=== PATIENT | female | born 1940 | race Caucasian/White ===

== ENCOUNTER 2020-01-31 19:38 | Inpatient (IN) | payer MEDICARE, OTHER, SELFPAY ==
[2020-01-31] VITALS (7 sets, daily range): BP systolic 132–217; BP diastolic 64–113; PULSE 63–118; RESP 12–20; TEMP 36.9; O2SAT 97–99
--- NOTE | ~2020-01-31 | XR_ITS ---
EXAMINATION: XR chest 2V DATE: 01/31/2020 20:57 INDICATION: Chest pain. Bradycardia. TECHNIQUE: PA and lateral views of the chest were obtained. COMPARISON: Chest radiograph dated 07/10/2017 and 04/21/2013 FINDINGS: Mild streaky bibasilar opacities consistent with atelectasis/scarring. Unchanged oblique thickening o f one of the fissures on the lateral projection likely additional scarring. No new airspace opacities , pulmonary edema, pleural effusion or pneumothorax. The cardiomediastinal silhouette is normal. Athe rosclerotic aorta. Moderate thoracic spondylosis and mild kyphosis with chronic mild anterior wedging of a few mid thoracic vertebral bodies. IMPRESSION: 1. Chronic scarring along one of the fissures with mild bibasilar atelectasis. Reviewed, dictated and finalized at location A.
--- NOTE | 2020-01-31 19:42 | ECG_ITS ---
Measurements Intervals [place] Rate: 122 P: 80 MA: 148 QRS: -29 QRSD: 126 T: 128 QT: 298 QTc: 425 Interpretive Statements SINUS TACHYCARDIA INTRAVENTRICULAR CONDUCTION DELAY BORDERLINE R WAVE PROGRESSION, ANTERIOR LEADS LEFT VENTRICULAR HYPERTROPHY AND ST-T CHANGE ST-T WAVE ABNORMALITY IN LATERAL LEADS- CONSIDER ISCHEMIA ABNORMAL ECG Electronically Signed On 02-01-2020 9:21:52 CDT by Mario Jack D.O.
--- NOTE | 2020-01-31 20:00 | PC.NURSE ---
Pt ambulatory to restroom with no difficulty.
--- NOTE | 2020-01-31 20:16 | PC.NURSE ---
EDP at bedside
--- NOTE | 2020-01-31 20:32 | ED.ARRPALP ---
HPI - Arrhythmia/Palpitations General Chief Complaint: Arrhythmia/Palpitations Stated Complaint: low heart rate Time Seen by Provider: 01/31/20 19:51 History of Present Illness HPI narrative: Patient is a 79-year-old female who presents ER with several complaints. Main complaint is that she has been feeling frequent PVCs and her heart dropping intermittently over the last few days. She has been taking her pulse at home and has noticed is been beating around 40 bpm. Prior to coming to the ER today she did develop some central chest pressure without radiation. It was associated with more frequent PVCs than typical for her. 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 She is on no rate control medications but reports that 30 years ago she took propanolol for her PVCs. Denies any recent medication changes or excessive caffeine use. Patient reports no issues with hypertension and that her blood pressure typically runs in the 120s and 130s systolic. Related Data Home Medications Medication Instructions Recorded Confirmed alprazolam 0.5 mg PO DAILY PRN 01/31/20 02/01/20 fluticasone propion-salmeterol 1 inh INHALATION DAILY 02/01/20 02/01/20 [Advair Diskus] Allergies Allergy/AdvReac Type Severity Reaction Status Date / Time albuterol [ProAir HFA] Allergy Unknown mouth sores Verified 01/31/20 19:53 dog dander Allergy Unknown Asthma Verified 01/31/20 19:53 levofloxacin Allergy Unknown tendonitis Verified 01/31/20 19:53 Review of Systems Review of Systems: All systems reviewed & are unremarkable except as noted in HPI and below Constitutional: Constitutional: Denies chills, Reports fatigue, Denies fever(s) and Reports weakness ENT: Denies nasal congestion and Denies sore throat Cardiovascular: Cardiovascular: Reports chest pain, Denies radiating jaw, neck or arm pain and Reports slow heart rate Respiratory: Respiratory: Denies cough, Denies dyspnea and Denies wheezing Gastrointestinal: Gastrointestinal: Denies abdominal pain, Denies nausea and Denies vomiting [facility] Past Medical History Medical History (Updated 02/01/20 @ 06:58 by Vipul Baptiste MD) Chronic lung disease Frequent PVCs Social History Social History (Reviewed 08/20/19 @ 14:34 by Lilian Pena [facility]) Years smoked: 5 Smoking status: Former smoker Tobacco type: cigarettes Second hand tobacco smoke exposure: Yes Alcohol intake: current Drinks per week: 0 Substance use: never Spiritual care concerns: Yes (Christianity) Exam Narrative: Exam Narrative: GENERAL: Well-appearing, well-nourished, and in no acute distress. HEAD: Normocephalic, atraumatic. ENT: Mucous membranes moist. CHEST: Clear to auscultation. No respiratory distress. HEART: Tachycardic and regular, frequent dropped beats. Normal peripheral pulses. ABDOMEN: Soft, nontender, nondistended. EXTREMITIES: Normal range of motion. No edema. SKIN: Warm, dry, no rash. NEURO: Alert and oriented x3. Course Course Emergency Course: Troponins trending upward. Cardiology consulted. Will start on low-dose beta-lauren. No chest pain right now so no anticoagulation. Patient will be admitted to the hospitalist service. Patient has had labile blood pressures where she has been normotensive but then is also had blood pressures up into the 200s systolic. When these blood pressures are elevated she is not having chest pain. Patient is in no distress at this time. Vital Signs Vital signs: Vital Signs Temperature 98.4 F 01/31/20 19:43 Pulse Rate 118 H 01/31/20 19:43 Respiratory Rate 20 01/31/20 19:43 Blood Pressure 217/113 H 01/31/20 19:43 Temperature 97 F L 02/01/20 03:24 Pulse Rate 83 02/01/20 05:51 Respiratory Rate 18 02/01/20 04:00 Blood Pressure 154/89 H 02/01/20 03:24 Pulse Oximetry 96 02/01/20 03:24 MDM - Arrhythmia/Palpitations Lab Data Result diagrams: 01/31/20 20:37 01/31/20 20:37 Labs: Lab Results 01/31/20
[2020-01-31] MEDS: SODIUM CHLORIDE 0.9% IV 500 ML 999 ML IV CONT (20:40)
[2020-01-31 20:44] LABS: Basophils Percent Auto 0.3 % (0.2-1.2); Eosinophils Absolute Auto 0.1 K/mm3 (0-0.3); Eosinophils Percent Auto 1.4 % (0-4.4); Hematocrit 42.7 % (37.0-47.0); Hemoglobin 14.1 g/dL (12.0-15.0); Immature Granulocyte Absolute 0.02 K/mm3 (0.00-0.031); Immature Granulocyte Percent A 0.2 % (0-0.5); Lymphocytes Absolute Auto 4.23 K/mm3 (0.9-3.2); Lymphocytes Percent Auto 44.8 % (18.3-44.2); Mean Corpuscular Hemoglobin 29.7 pg (26-34); Mean Corpuscular Volume 89.9 fl (80-100); Mean Platelet Volume 11.4 fl (7.4-10.4); Monocytes Absolute Auto 0.7 K/mm3 (0.1-0.6); Neutrophils Absolute Auto 4.4 K/mm3 (1.3-6.7); Neutrophils Percent Auto 46.3 % (45.5-73.1); Platelet Count Result 243 k/mm3 (150-375); Red Blood Count 4.75 M/mm3 (4.2-5.4); Red Cell Distribution Width 13.2 % (11.5-14.5); White Blood Count 9.4 K/mm3 (4.5-10.0)
[2020-01-31 20:54] LABS: INR 0.9; Partial Thromboplastin Time 23.8 SECONDS (22.3-36.8); Prothrombin Time 11.9 Seconds (11.1-14.7)
[2020-01-31 20:55] LABS: Blood Urea Nitrogen 18 mg/dL (7-17); Calcium 9.3 mg/dL (8.4-10.2); Carbon Dioxide 26 mmol/L (22-30); Chloride 102 mmol/L (98-107); Estimated CRCL calculation 49 ml/min; Estimated Glomerular Filt Rate > 60; Glucose 122 mg/dL (65-105); Sodium 136 mmol/L (137-145)
[2020-01-31 21:07] LABS: Troponin I < 0.012 ng/mL (0.000-0.034)
--- NOTE | 2020-01-31 21:56 | PC.NURSE ---
Ambulatory to RR
--- NOTE | 2020-01-31 23:10 | PC.NURSE ---
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 EDP is aware of elevated BP. Made aware of pt concerns
[2020-02-01] VITALS (21 sets, daily range): BP systolic 129–164; BP diastolic 56–116; PULSE 68–105; RESP 16–29; TEMP 36.1–37; O2SAT 95–98; BMI 26.0
--- NOTE | 2020-02-01 00:32 | ECG_ITS ---
Measurements Intervals [place] Rate: 77 P: 75 [place]: 161 QRS: -38 QRSD: 130 T: 118 QT: 440 QTc: 500 Interpretive Statements SINUS RHYTHM VENTRICULAR PREMATURE COMPLEXES LEFT AXIS DEVIATION INTRAVENTRICULAR CONDUCTION DELAY LEFT VENTRICULAR HYPERTROPHY AND ST-T CHANGE BORDERLINE R WAVE PROGRESSION, ANTERIOR LEADS ST-T WAVE ABNORMALITY IN LATERAL LEADS- CONSIDER ISCHEMIA ABNORMAL ECG Electronically Signed On 02-01-2020 9:25:01 CDT by Mario Jack D.O.
[2020-02-01 00:57] LABS: Troponin I 0.075 ng/mL (0.000-0.034)
[2020-02-01] MEDS: METOPROLOL TARTRATE 12.5 MG TABLET PO ×2 (01:28→08:16)
--- NOTE | 2020-02-01 03:18 | ADMGEN ---
This patient, Nora Tejeda, was admitted to IMU Room 200-01. Patient/family oriented to hospital policies and general routines including ID bracelet, bed and alarms, visiting hours, pain management, procedures, bathroom and other care routines, personal items, smoking policy, room service/diet, and visiting hours. Valuables list has been completed. Information on how to activate the Rapid Response Team has been discussed. Patient/Family are encouraged to report perceived risks to care and to ask questions if they do not understand what they are told or what they should do.
[2020-02-01 03:48] LABS: Troponin I 0.089 ng/mL (0.000-0.034)
--- NOTE | 2020-02-01 09:47 | ECG_ITS ---
Measurements Intervals [place] Rate: 82 P: 73 CO: 157 QRS: -45 QRSD: 133 T: 125 QT: 400 QTc: 469 Interpretive Statements SINUS RHYTHM INTRAVENTRICULAR CONDUCTION DELAY LEFT VENTRICULAR HYPERTROPHY AND ST-T CHANGE BORDERLINE R WAVE PROGRESSION, ANTERIOR LEADS ST-T WAVE ABNORMALITY IN LATERAL LEADS- CONSIDER ISCHEMIA ABNORMAL ECG Electronically Signed On 02-01-2020 13:43:46 CDT by Mario Jack D.O.
--- NOTE | 2020-02-01 10:36 | PM.CNCAR ---
Assessment and Plan Assessment and plan (1) Elevated troponin: Code(s): R79.89 - Other specified abnormal findings of blood chemistry Status: Acute Assessment and Plan: Secondary to an acute coronary syndrome. Troponins are still slightly rising. Certainly may be related to markedly elevated blood pressure upon arrival but underlying coronary disease is not excluded. She has symptoms of exertional chest pain improved with rest. Plan therefore will be to repeat a troponin now. EKG now. Start aspirin 325 mg p.o. daily. Will give her 1 dose of enoxaparin 1 milligram/kilogram subcu x1. A 2D echocardiogram with Doppler will be ordered and reviewed. A magnesium level will also be checked along with a fasting lipid panel. Metoprolol will be increased to 25 mg p.o. b.i.d. patient is very hesitant and skeptical of the above diagnosis and issues. Plan is to keep her NPO after midnight to perform an ischemic evaluation either via a pharmaceutical stress test or preferably a coronary angiogram. (2) Chest tightness: Code(s): R07.89 - Other chest pain Status: Acute Assessment and Plan: Concerning for angina (3) Ventricular premature beats: Code(s): I49.3 - Ventricular premature depolarization Status: Acute Assessment and Plan: Frequent and likely the cause of her low heart rate as she probably had pseudo bradycardia (4) Chronic obstructive pulmonary disease, unspecified: Code(s): J44.9 - Chronic obstructive pulmonary disease, unspecified Status: Acute Assessment and Plan: On Advair (5) Elevated blood pressure reading: Code(s): R03.0 - Elevated blood-pressure reading, without diagnosis of hypertension Status: Acute Assessment and Plan: Probably has untreated hypertension History of Present Illness History of Present Illness Consult date/time: 02/01/20 10:36 Requesting physician: Vipul Baptiste MD Consult reason: Other (Elevated troponins, PVCs, chest tightness) Reason For Visit: low heart rate Narrative: Date of service 02/01/2020 History: Patient is a thorough historian. She is a 79-year-old female who came to the hospital yesterday because of lower heart rates and not feeling very well. She does see Dr. Plaza in our office. 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 She has a history of palpitations dating back to 1974. At that time she was treated with propanolol. She was later taken off of the medication but had restarted 1981 for a couple of years. About 5 years ago there is a in her family and she started having more palpitations again. She did see Dr. Plaza in our office. She has been diagnosed with PVCs. Her PVCs can be exacerbated by alcohol and caffeine. She does have some anxiety as well as underlying lung disease also. She came to the hospital yesterday because she has had 2 days of not feeling very well and low heart rates. She will check her pulse oximeter and her heart rate would be in the 40s. Two days ago whenever this 1st started happening she drank some water and then went about her day. Later that evening though she felt abnormal again and her pulse was in the 40s. Episodes the last 5 minutes or so at a time. Yesterday she had more episodes. She also had some associated chest tightness as well as chest tightness on the way into the emergency department. Upon further and detailed questioning, she describes a longstanding history of chest tightness with exertion that has been present for the past 5 years. She states that this is certainly no better and probably worse over time. It is associated with shortness of breath. It is improved with rest. She also has a feeling of indigestion. Sometimes the symptoms will last for about an hour or so. Symptoms do not radiate. Her initial troponin was negative but follow-up troponins have been elevated and continues to rise slowly. She currently is comfortable and without complaint except for the fac
[2020-02-01 11:00] LABS: Troponin I 0.087 ng/mL (0.000-0.034)
[2020-02-01 11:16] LABS: Cholesterol 204 mg/dL (0-200); HDL Direct 82 mg/dL; Triglycerides 49 mg/dL (<150)
[2020-02-01 11:28] LABS: LDL Cholesterol Direct 91 mg/dL
[2020-02-01] MEDS: ENOXAPARIN 80 MG/0.8 ML SYRINGE 70 MG SUB-Q (12:24)
[2020-02-01] MEDS: ASPIRIN 325 MG ENTERIC TABLET PO (12:24)
--- NOTE | 2020-02-01 15:15 | PM.IMPN ---
Subjective Date/time seen: 02/01/20 15:15 Patient is 79-year-old female with history of COPD, anxiety and questionable PVC presented emergency department with a complaint of my heart is skipping the bits, patient presenting complaint with also shortness of breath with exertion but no chest pain, her initially tropes was negative however now the 2nd was 0.75, .89 and .87, patient seen by laboratory mechanic helper suspect non STEMI and start the patient on anticoagulation, will monitor patient overnight patient will have stress test tomorrow or possibly cardiac catheterization, currently patient denies any chest pain or shortness of breath Objective Data Vital Signs Vital Signs: Vital Signs - 24 hr 01/31/20 19:43 01/31/20 20:11 01/31/20 20:31 Temperature 98.4 F Pulse Rate 118 H 99 Respiratory Rate 20 19 Blood Pressure 217/113 H 177/84 H 171/84 H Pulse Oximetry 99 01/31/20 21:19 01/31/20 22:14 01/31/20 22:37 Temperature Pulse Rate 83 77 71 Respiratory Rate 12 Blood Pressure 162/86 H 140/88 132/64 Pulse Oximetry 99 97 97 01/31/20 23:47 02/01/20 00:47 02/01/20 01:19 Temperature Pulse Rate 63 77 Respiratory Rate 20 Blood Pressure 164/116 H 129/87 Pulse Oximetry 98 96 02/01/20 01:28 02/01/20 01:34 02/01/20 02:35 Temperature Pulse Rate 88 80 68 Respiratory Rate 29 H 18 Blood Pressure 154/84 H 143/79 H Pulse Oximetry 98 96 02/01/20 03:06 02/01/20 03:24 02/01/20 04:00 Temperature 97 F L Pulse Rate 88 68 Respiratory Rate 16 18 Blood Pressure 144/90 H 154/89 H Pulse Oximetry 96 02/01/20 05:51 02/01/20 07:43 02/01/20 08:00 Temperature 96.9 F L Pulse Rate 83 79 84 Respiratory Rate 16 Blood Pressure 146/66 H Pulse Oximetry 97 02/01/20 08:16 02/01/20 10:07 02/01/20 12:00 Temperature 96.9 F L Pulse Rate 84 88 79 Respiratory Rate 16 Blood Pressure 143/56 H Pulse Oximetry 95 02/01/20 14:52 Temperature Pulse Rate 89 Respiratory Rate Blood Pressure Pulse Oximetry Intake/Output Intake/Output: Intake & Output 01/29/20 01/30/20 01/31/20 02/01/20 23:59 23:59 23:59 23:59 Intake Total 500 1470 Output Total 900 Balance 500 570 Meds/Results Medications: Active Medications Generic Name Dose Route Start Last Admin Trade Name Freq PRN Reason Stop Dose Admin Acetaminophen 650 mg 02/01/20 02:17 Tylenol Tablet PO Q4H PRN Mild Pain (1-3) or Fever Hydrocodone Bitart/Acetaminophen 1 tab 02/01/20 02:17 [place] 5-325 Mg PO Q4H PRN Pain Rated 4-6 Alprazolam 0.5 mg 02/01/20 07:50 Xanax PO DAILY PRN Anxiety Aspirin 325 mg 02/01/20 10:50 02/01/20 12:24 Aspirin Ec PO 325 mg QAM ANA Administration Metoprolol Tartrate 25 mg 02/01/20 10:50 Lopressor PO Q12HR ANA Morphine Sulfate 4 mg 02/01/20 02:17 Morphine Sulfate Inj IV PUSH Q2H PRN Pain Rated 7-10 Non-Formulary Medication 1 inhalation 02/01/20 09:00 Fluticasone Propion-Salmeterol [Advair Diskus] INHALATION 03/02/20 09:01 DAILY ANA Ondansetron HCl 4 mg 02/01/20 02:17 Zofran Inj IV PUSH Q4H PRN Nausea Radiology Results: ITS Impressions Chest X-Ray 01/31/20 21:14 IMPRESSION: 1. Chronic scarring along one of the fissures with mild bibasilar atelectasis. Labs Labs: Laboratory Results - last 24 hr 01/31/20 01/31/20 01/31/20 20:37 20:37 20:37 WBC 9.4 RBC 4.75 Hgb 14.1 Hct 42.7 MCV 89.9 MCH 29.7 MCHC 33.0 RDW 13.2 Plt Count 243 MPV 11.4 H Immature Gran % (Auto) 0.2 Neut % (Auto) 46.3 Lymph % (Auto) 44.8 H [place] % (Auto) 7.0 Eos % (Auto) 1.4 Baso % (Auto) 0.3 Lymph # (Auto) 4.23 H [place] # (Auto) 0.7 H Eos # (Auto) 0.1 Baso # (Auto) 0.0 Abs Immat Gran (auto) 0.02 Absolute Neuts (auto) 4.4 Absolute Nucleated RBC 0.0 Nucleated RBC % 0.0 PT 11.9 INR 0.9 APTT 23.8 Sodium 136
--- NOTE | 2020-02-01 15:20 | PM.IMHP ---
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 by tempering kiln tender suspect non STEMI and start the patient on anticoagulation, will monitor patient overnight patient will have stress test tomorrow or possibly cardiac catheterization, currently patient denies any chest pain or shortness of breath Review of Systems Review of Systems: All systems reviewed & are unremarkable except as noted in HPI and below PMFSH Past Medical History Medical History (Updated 02/01/20 @ 10:45 by Winston Tapia MD) Chest tightness Chronic lung disease Frequent PVCs Family History Family History Sibling Family history of tuberculosis Mother Diabetes mellitus Social History Social History Years smoked: 5 Smoking status: Former smoker Tobacco type: cigarettes Second hand tobacco smoke exposure: Yes Alcohol intake: current Drinks per week: 0 Substance use: never Spiritual care concerns: Yes (Anglican) Meds Home Medications and Allergies Home Medications Medication Instructions Recorded Confirmed Type alprazolam 0.5 mg PO DAILY PRN 01/31/20 02/01/20 History fluticasone propion-salmeterol 1 inh INHALATION DAILY 02/01/20 02/01/20 History [Advair Diskus] Allergies Allergy/AdvReac Type Severity Reaction Status Date / Time albuterol [ProAir HFA] Allergy Unknown mouth sores Verified 01/31/20 19:53 dog dander Allergy Unknown Asthma Verified 01/31/20 19:53 levofloxacin Allergy Unknown tendonitis Verified 01/31/20 19:53 Vital Signs Vital Signs - 24 hr 01/31/20 19:43 01/31/20 20:11 01/31/20 20:31 Temperature 98.4 F Pulse Rate 118 H 99 Respiratory Rate 20 19 Blood Pressure 217/113 H 177/84 H 171/84 H Pulse Oximetry 99 01/31/20 21:19 01/31/20 22:14 01/31/20 22:37 Temperature Pulse Rate 83 77 71 Respiratory Rate 12 Blood Pressure 162/86 H 140/88 132/64 Pulse Oximetry 99 97 97 01/31/20 23:47 02/01/20 00:47 02/01/20 01:19 Temperature Pulse Rate 63 77 Respiratory Rate 20 Blood Pressure 164/116 H 129/87 Pulse Oximetry 98 96 02/01/20 01:28 02/01/20 01:34 02/01/20 02:35 Temperature Pulse Rate 88 80 68 Respiratory Rate 29 H 18 Blood Pressure 154/84 H 143/79 H Pulse Oximetry 98 96 02/01/20 03:06 02/01/20 03:24 02/01/20 04:00 Temperature 97 F L Pulse Rate 88 68 Respiratory Rate 16 18 Blood Pressure 144/90 H 154/89 H Pulse Oximetry 96 02/01/20 05:51 02/01/20 07:43 02/01/20 08:00 Temperature 96.9 F L Pulse Rate 83 79 84 Respiratory Rate 16 Blood Pressure 146/66 H Pulse Oximetry 97 02/01/20 08:16 02/01/20 10:07 02/01/20 12:00 Temperature 96.9 F L Pulse Rate 84 88 79 Respiratory Rate 16 Blood Pressure 143/56 H Pulse Oximetry 95 02/01/20 14:52 Temperature Pulse Rate 89 Respiratory Rate Blood Pressure Pulse Oximetry Exam Const: General: comfortable and no acute distress HENMT: General nose exam: Normal nares present Eyes: Sclera: sclerae normal Neck: Neck: supple Resp: Effort & Inspection: normal respiratory effort Auscultation: clear to auscultation bilaterally Cardio: Rate: regular rate Rhythm: regular rhythm Other: Occasional PVC GI: GI Palp: Yes Soft to palpation Skin: General skin exam: normal color Neuro: Speech: normal speech Sensory Exam: normal sensation Extrem: General: normal to inspection Psych: Affect: Anxious affect present H&P: Results La
--- NOTE | 2020-02-01 18:35 | PHAR ---
The patient's home med of Fluticasone Propion-Salmeterol [Advair Diskus] 250-50 MCG has been verified.
[2020-02-01] MEDS: METOPROLOL TARTRATE 25 MG TABLET PO (20:18)
[2020-02-02] VITALS (17 sets, daily range): BP systolic 120–145; BP diastolic 54–78; PULSE 43–88; RESP 12–18; TEMP 36–36.5; O2SAT 61–99
--- NOTE | 2020-02-02 | ECHO_ITS ---
Patient Info Name: Nora Tejeda Age: 79 years : 1940 Gender: Female Ht: 64 in Wt: 151 lbs BSA: 1.77 m2 HR: 74 bpm BP: 128 / 54 mmHg Heart Rhythm: Sinus Rhythm Technical Quality: Good Exam Date: 02/02/2020 8:23 AM Exam Location: [facility] Patient Status: Inpatient Admit Date: 02/01/2020 Staff Ordering Physician: Winston Tapia MD Marketing Technologist: Nabil Perla RDCS, RT Attending Provider: Argentina Hernandez DO Referring Physician: Willie MACK; Exam Type: CA echo doppler color flow Study Info Indications I50.9 - Heart failure, unspecified Complete two-dimensional, color flow and Doppler transthoracic echocardiogram is performed. Summary 1. Left ventricular chamber dimension is normal. 2. Left ventricular systolic function is moderately reduced, estimated at 35-40%. 3. There is mildly increased left ventricular wall thickness. 4. The left ventricular diastolic function is grade I diastolic dysfunction. 5. Global hypokinesis of the left ventricle. 6. Left atrial chamber dimension is mildly enlarged. 7. There is mild to moderate mitral valve regurgitation. 8. There is mild tricuspid valve regurgitation. Left Ventricle Left ventricular chamber dimension is normal. Left ventricular systolic function is moderately reduced, estimated at 35-40%. There is mildly increased left ventricular wall thickness. The left ventricular diastolic function is grade I diastolic dysfunction. Global hypokinesis of the left ventricle. Right Ventricle Right ventricular chamber dimension is normal. Right ventricular systolic function is normal. Left Atria Left atrial chamber dimension is mildly enlarged. Right Atria Right atrial chamber dimension is normal. Atrial Septum Intact interatrial septum visualized by color flow imaging. Aortic Valve The aortic valve is trileaflet. There is mild aortic valve sclerosis. There is no aortic valve stenosis. There is trace aortic valve regurgitation. Pulmonic Valve The pulmonic valve is normal. There is no pulmonic valve stenosis. There is trace pulmonic regurgitation. Mitral Valve The mitral valve has calcified annulus. There is no mitral valve stenosis. There is mild to moderate mitral valve regurgitation. Tricuspid Valve The tricuspid valve leaflets are normal. There is no significant tricuspid valve stenosis. There is mild tricuspid valve regurgitation. Pericardium/Pleural The pericardium appears normal. There is no pericardial effusion. Inferior Vena Cava Dilated inferior vena cava with <50% collapse upon inspiration consistent with elevated right atrial pressure, 15 mmHg. Aorta The aortic root size at the sinus of Valsalva is normal. The prox ascending aorta size is normal. Left Ventricular Outflow Tract Name Value Normal LVOT 2D LVOT Diameter 2.0 cm LVOT Doppler LVOT Peak Gradient 4 mmHg LVOT Mean Gradient 2 mmHg LVOT VTI 20 cm LVOT VTI/AV VTI Ratio 0.8 LVOT Stroke Volume
[2020-02-02 05:06] LABS: Hematocrit 37.2 % (37.0-47.0); Hemoglobin 12.6 g/dL (12.0-15.0); Mean Corpuscular HGB Conc 33.9 g/dl (32-36); Mean Corpuscular Hemoglobin 29.5 pg (26-34); Mean Corpuscular Volume 87.1 fl (80-100); Mean Platelet Volume 10.9 fl (7.4-10.4); Platelet Count Result 209 k/mm3 (150-375); Red Blood Count 4.27 M/mm3 (4.2-5.4); Red Cell Distribution Width 13.2 % (11.5-14.5); White Blood Count 6.8 K/mm3 (4.5-10.0)
[2020-02-02 05:15] LABS: Blood Urea Nitrogen 15 mg/dL (7-17); Calcium 8.8 mg/dL (8.4-10.2); Carbon Dioxide 27 mmol/L (22-30); Chloride 105 mmol/L (98-107); Estimated CRCL calculation 49 ml/min; Estimated Glomerular Filt Rate > 60; Glucose 97 mg/dL (65-105); Potassium 3.7 mmol/L (3.4-5.0); Sodium 136 mmol/L (137-145)
[2020-02-02] MEDS: ASPIRIN 325 MG ENTERIC TABLET PO (09:02)
[2020-02-02] MEDS: METOPROLOL TARTRATE 25 MG TABLET PO (09:03)
--- NOTE | 2020-02-02 11:06 | WPDMODSED ---
Moderate Sedation Note-Pt Data Patient Data Diagnosis: exertional chest pain typical of angina history of symptomatic PVCs Present Complaint: exertional chest pain Procedure to be performed/Plan: left heart catheterization Allergies Allergy/AdvReac Type Severity Reaction Status Date / Time albuterol [ProAir HFA] Allergy Unknown mouth sores Verified 01/31/20 19:53 dog dander Allergy Unknown Asthma Verified 01/31/20 19:53 levofloxacin Allergy Unknown tendonitis Verified 01/31/20 19:53 Home Medications Medication Instructions Recorded Confirmed Type alprazolam 0.5 mg PO DAILY PRN 01/31/20 02/01/20 History fluticasone propion-salmeterol 1 inh INHALATION DAILY 02/01/20 02/01/20 History [Advair Diskus] Current Medications: Active Medications Acetaminophen (Tylenol Tablet) 650 mg PO Q4H PRN PRN Reason: Mild Pain (1-3) or Fever Hydrocodone Bitart/Acetaminophen ([place] 5-325 Mg) 1 tab PO Q4H PRN PRN Reason: Pain Rated 4-6 Alprazolam (Xanax) 0.5 mg PO DAILY PRN PRN Reason: Anxiety Aspirin (Aspirin Ec) 325 mg PO QAM [facility] Last Admin: 02/02/20 09:02 Dose: 325 mg Documented by: Metoprolol Tartrate (Lopressor) 25 mg PO Q12HR [facility] Last Admin: 02/02/20 09:03 Dose: 25 mg Documented by: Morphine Sulfate (Morphine Sulfate Inj) 4 mg IV PUSH Q2H PRN PRN Reason: Pain Rated 7-10 Ondansetron HCl (Zofran Inj) 4 mg IV PUSH Q4H PRN PRN Reason: Nausea Sedation/Anesthesia: No previous sedation/anesthesia problems (including family history). [facility] Past Medical History Medical History (Updated 02/01/20 @ 10:45 by Winston Tapia MD) Chest tightness Chronic lung disease Frequent PVCs Family History Family History Sibling Family history of tuberculosis Mother Diabetes mellitus Social History Social History Years smoked: 5 Smoking status: Former smoker Tobacco type: cigarettes Second hand tobacco smoke exposure: Yes Alcohol intake: current Drinks per week: 0 Substance use: never Spiritual care concerns: Yes (Voodoo) Mod Sed Physical Exam Physical Exam Pre Procedural Exam: Normal: Appearance, Neck, Throat, Airway, Lungs, Heart Size, Heart Rate, Heart Rhythm, Neuro Exam and Extremities Hours since solid foods: 12 Hours since liquid intake: 12 Internal Medicine - PN: Obj Da Vital Signs Vital Signs: Vital Signs - 24 hr 02/01/20 12:00 02/01/20 14:52 02/01/20 16:00 Temperature 36.1 C L 36.3 C L Pulse Rate 79 89 93 Respiratory Rate 16 20 Blood Pressure 143/56 H 144/81 H Pulse Oximetry 95 97 02/01/20 18:04 02/01/20 20:00 02/01/20 20:18 Temperature Pulse Rate 105 H 92 92 Respiratory Rate 18 Blood Pressure Pulse Oximetry 97 02/01/20 20:48 02/01/20 21:35 02/02/20 00:00 Temperature 37.0 C Pulse Rate 88 88 65 Respiratory Rate 18 18 Blood Pressure 144/69 H Pulse Oximetry 97 97 02/02/20 01:49 02/02/20 04:00 02/02/20 06:00 Temperature 36.0 C L Pulse Rate 68 43 L 60 Respiratory Rate 18 Blood Pressure 128/54 L Pulse Oximetry 98 02/02/20 08:00 02/02/20 09:03 02/02/20 10:38 Temperature 36.4 C L Pulse Rate 88 78 83 Respiratory Rate 16 Blood Pressure 144/55 H Pulse Oximetry 96 Intake/Output Intake/Output: Intake & Output 01/30/20 01/31/20 02/01/20 02/02/20 23:59 23:59 23:59 23:59 Intake Total 500 1590 Output Total 2600 800 Balance 500 -1010 -800 Meds/Results Medications: Active Medications Generic Name Dose Route Start Last Admin Trade Name Freq PRN Reason Stop Dose Admin Acetaminophen 650 mg 02/01/20 02:17 Tylenol Tablet PO Q4H PRN Mild Pain (1-3) or Fever Hydrocodone Bitart/Acetaminophen 1 tab 02/01/20 02:17 [place] 5-325 Mg PO Q4H PRN Pain Rated 4-6 Alprazolam 0.5 mg 02/01/20 07:50 Xanax PO DAILY PRN Anxiety Aspirin 325 mg 02/01/20
--- NOTE | 2020-02-02 12:07 | P.PCNCC_ITS ---
Cardiac Cath Procedure Note Date of procedure:: 02/02/20 Performing physician:: Pawan Alberts MD Indication:: Exertional chest pain Brief clinical history:: 79-year-old woman with a history of symptomatic PVCs with palpitations. She also provides a history of exertional chest pain concerning for angina. Procedure Procedure performed:: Left heart catheterization with left ventriculography and coronary angiography Angio-Seal to right femoral artery Sedation/Medication given:: fentanyl 50 mg Versed 2 mg case start time 11 45 AM case end time 12 noon sedation provided by Quoc De Paz RN, trained observer Access site:: right femoral artery Estimated blood loss:: approximately 10-15 cc Procedure note:: patient was brought to the cardiac catheterization lab in the postabsorptive state the right femoral triangle was prepared and draped in usual fashion. Anesthesia was provided with 1% lidocaine infiltrated locally. Using modified Seldinger technique a 5 [place] sheath was placed into the right femoral artery. After this left heart catheterization was carried out. A 5 [place] angled pigtail catheter was used to measure left-sided hemodynamics and inject an LV g in the are AO projection. Following this the pigtail catheter was removed. A 5 [place] FL4 catheter was used to engage inject the left coronary artery in multiple projections. After this a JR4 catheter was used to engage inject the right coronary artery. Lastly an angiogram was done of the femoral artery through the sheath after which Angio-Seal device was deployed with a good hemostatic result. Patient was taken to the holding area in good condition there were no signs of any procedural complications and no evidence of a groin hematoma upon leaving the high density press laborer Findings:: central aortic pressure is 130/52 left ventricle 135 over 2 end- diastolic pressure 12 there is no apparent gradient on pullback across the aortic valve the left ventricle is very slightly enlarged there is mild global hypocontractility the ejection fraction appears to be about 45% The left main is a large caliber vessel and is widely patent The LAD is a iolchpcn-gr-ruwel caliber vessel smooth and widely patent there is no significant coronary disease the vessel has MICHELLE 3 flow down to the apex The LCX is a eqxcooep-qb-ajjbq caliber vessel giving rise to the marginal branches is smooth and angiographically unremarkable The RCA is a very large caliber vessel dominant to the posterior circulation. There is no angiographic abnormalities Conclusion:: right coronary dominant circulation with no evidence of CAD mild left ventricular systolic dysfunction as described above Angio-Seal device deployed at the site of the arterial puncture with good hemostatic result
--- NOTE | 2020-02-02 12:09 | PC.NURSE ---
1130- to cardiac laboratory mechanic helper for procedure accompanied by RN's
[2020-02-02] MEDS: SODIUM CHLORIDE 0.9% IV 1,000 ML 125 ML IV CONT (13:35)
[2020-02-02] MEDS: lisinopriL 2.5 MG TABLET PO (14:55)
--- NOTE | 2020-02-02 14:57 | PM.DS ---
DS: Diagnosis Admitting Diagnosis Admitting Diagnosis: Other specified abnormal findings of blood chemistry Discharge Diagnosis (1) Ventricular premature beats: Code(s): I49.3 - Ventricular premature depolarization Status: Acute Assessment and Plan: Nora Tejeda is a 79 year old female 02/01/20 15:15 Patient is 79-year-old female with history of COPD, anxiety and questionable PVC presented emergency department with a complaint of my heart is skipping the bits, patient presenting complaint with also shortness of breath with exertion but no chest pain, her initially tropes was negative however now the 2nd was 0.75, .89 and .87, patient seen by insurance defense paralegal suspect non STEMI and start the patient on anticoagulation, will monitor patient overnight patient will have stress test tomorrow or possibly cardiac catheterization, currently patient denies any chest pain or shortness of breath (2) Elevated troponin: Code(s): R79.89 - Other specified abnormal findings of blood chemistry Status: Acute Assessment and Plan: Patient is seen by insurance defense paralegal suspect non STEMI anticoagulated will have a further evaluation tomorrow possibly cardiac stress test or catheterization (3) Chronic obstructive pulmonary disease, unspecified: Code(s): J44.9 - Chronic obstructive pulmonary disease, unspecified Status: Acute Assessment and Plan: Patient is clinically stable will continue home regimen (4) Elevated blood pressure reading: Code(s): R03.0 - Elevated blood-pressure reading, without diagnosis of hypertension Status: Acute Assessment and Plan: Upon arrival patient's systolic blood pressure was in 200 most likely secondary to stress and anxiety her blood pressure is now trending down will continue to monitor patient is seen by insurance defense paralegal DS: Summary Hospital Course Reason for hospitalization: Nora Tejeda is a 79 year old female 02/01/20 15:15 Patient is 79-year-old female with history of COPD, anxiety and questionable PVC presented emergency department with a complaint of my heart is skipping the bits, patient presenting complaint with also shortness of breath with exertion but no chest pain, her initially tropes was negative however now the 2nd was 0.75, .89 and .87, patient seen by insurance defense paralegal suspect non STEMI and start the patient on anticoagulation, will monitor patient overnight patient will have stress test tomorrow or possibly cardiac catheterization, currently patient denies any chest pain or shortness of breath Hospital Course: Nora Tejeda is a 79 year old female 02/01/20 15:15 Patient is 79-year-old female with history of COPD, anxiety and questionable PVC presented emergency department with a complaint of my heart is skipping the bits, patient presenting complaint with also shortness of breath with exertion but no chest pain, her initially tropes was negative however now the 2nd was 0.75, .89 and .87, patient seen by insurance defense paralegal suspect non STEMI and start the patient on anticoagulation, will monitor patient overnight patient will have stress test tomorrow or possibly cardiac catheterization, currently patient denies any chest pain or shortness of breath, patient had a cardiac catheterization today which essentially normal, patient is clinically stable will discharge the patient home with metoprolol and lisinopril, patient will follow-up with insurance defense paralegal as scheduled Status at Discharge Functional status at discharge: independent ambulation Overall status at discharge: patient is back to baseline Time Spent with Patient Time attestation: Total time spent providing and/or coordinating discharge services: Patient was seen and examined at the time of the discharge Condition at discharge is stable Code status: Full code. Time spent preparing discharge summary, discharge medications, discussing discharge planning with showcase trimmer and patient is 35 minutes. Time spent: Great
== END 2020-02-02 16:30 | disposition home or self-care (01) | DRG 282 ==
LOC: ANHED 20:08 → ANHIMU 02-01 02:37
PROVIDERS: Internal Medicine Cardiovascular Disease; Specialist; Admitting Provider Internal Medicine; Emergency Provider Emergency Medicine; PCP Family Medicine; Visit Provider Family Medicine
PROC: 4A023N7 Measurement of Cardiac Sampling and Pressure, Left Heart, Percutaneous Approach (ICD-10-PCS; CPT 93452; principal; 2020-02-02 13:00)
PROC: 4A023N7 Measurement of Cardiac Sampling and Pressure, Left Heart, Percutaneous Approach (ICD-10-PCS; 2020-02-02 13:00)
DX: I21.4 Non-ST elevation (NSTEMI) myocardial infarction (principal); J44.9 Chronic obstructive pulmonary disease, unspecified; I49.3 Ventricular premature depolarization
CPT/HCPCS: 36415; 71046; 80048; 80061; 83735; 84484; 85025; 85027; 85610; 85730; 93005; 93306; 93458; 94640; 99285; A9270; C1760; C1887; C1894; G0269; G0378; J1644; J1650; J2250; J3010; J7030; J7040

== ENCOUNTER 2020-02-10 11:20 | Outpatient (CLI) | payer MEDICARE, OTHER, SELFPAY ==
[2020-02-10 11:51] LABS: Blood Urea Nitrogen 18 mg/dL (7-17); Calcium 9.3 mg/dL (8.4-10.2); Carbon Dioxide 28 mmol/L (22-30); Chloride 102 mmol/L (98-107); Estimated Glomerular Filt Rate > 60; Glucose 99 mg/dL (65-105); Potassium 4.6 mmol/L (3.4-5.0); Sodium 136 mmol/L (137-145)
== END 2020-02-10 11:21 | disposition home or self-care (01) ==
PROVIDERS: PCP Family Medicine; Visit Provider Nurse Practitioner Adult Health
DX: I42.9 Cardiomyopathy, unspecified (principal); Z98.890 Other specified postprocedural states
CPT/HCPCS: 36415; 80048

== ENCOUNTER 2020-05-05 15:09 | Outpatient (CLI) | payer MEDICARE, OTHER, SELFPAY | END 2020-05-05 15:10 | disposition home or self-care (01) | PROVIDERS: PCP Family Medicine; Visit Provider Internal Medicine Cardiovascular Disease | DX: I49.3 Ventricular premature depolarization (principal); R00.2 Palpitations | CPT/HCPCS: 36415; 84443 ==

== ENCOUNTER 2021-03-02 16:27 | Outpatient (RCR) | payer MEDICARE, OTHER, SELFPAY | END 2021-04-12 23:59 | disposition home or self-care (01) | LOC: ANHLAB 16:27 | PROVIDERS: PCP Family Medicine; Visit Provider Internal Medicine | DX: A31.0 Pulmonary mycobacterial infection (principal) | CPT/HCPCS: 87015; 87070; 87077; 87116; 87149; 87186; 87205; 87206 ==

== ENCOUNTER 2021-03-02 16:30 | Outpatient (CLI) | payer MEDICARE, OTHER, SELFPAY ==
[2021-03-02 16:55] LABS: Basophils Percent Auto 0.3 % (0.2-1.2); Eosinophils Absolute Auto 0.1 K/mm3 (0-0.3); Eosinophils Percent Auto 0.5 % (0-4.4); Hematocrit 43.2 % (37.0-47.0); Hemoglobin 13.7 g/dL (12.0-15.0); Immature Granulocyte Absolute 0.05 K/mm3 (0.00-0.031); Immature Granulocyte Percent A 0.4 % (0-0.5); Lymphocytes Absolute Auto 2.15 K/mm3 (0.9-3.2); Lymphocytes Percent Auto 18.5 % (18.3-44.2); Mean Corpuscular HGB Conc 31.7 g/dl (32-36); Mean Corpuscular Hemoglobin 28.5 pg (26-34); Mean Platelet Volume 9.9 fl (7.4-10.4); Monocytes Absolute Auto 0.8 K/mm3 (0.1-0.6); Monocytes Percent Auto 6.8 % (2.6-8.5); Neutrophils Absolute Auto 8.5 K/mm3 (1.3-6.7); Neutrophils Percent Auto 73.5 % (45.5-73.1); Platelet Count Result 302 k/mm3 (150-375); Red Cell Distribution Width 13.2 % (11.5-14.5); White Blood Count 11.6 K/mm3 (4.5-10.0)
[2021-03-02 17:03] LABS: Alanine Aminotransferase 17 U/L (4-35); Albumin Level 4.6 g/dL (3.5-5.1); Alkaline Phosphatase 60 U/L (38-126); Anion Gap 10 mmol/L (8-16); Aspartate Amino Transferase 22 U/L (14-36); Bilirubin,Total 0.2 mg/dL (0.2-1.3); Blood Urea Nitrogen 16 mg/dL (7-17); Calcium 9.7 mg/dL (8.4-10.2); Carbon Dioxide 25 mmol/L (22-30); Chloride 103 mmol/L (98-107); Estimated Glomerular Filt Rate > 60; Glucose 107 mg/dL (65-105); Potassium 4.4 mmol/L (3.4-5.0); Sodium 138 mmol/L (137-145)
[2021-03-02 17:34] LABS: Thyroid Stimulating Hormone 0.968 uIU/mL (0.465-4.680)
[2021-03-02 18:37] LABS: Vitamin D 25 Hydroxy 38.9 ng/mL
== END 2021-03-02 16:31 | disposition home or self-care (01) ==
PROVIDERS: PCP Family Medicine; Visit Provider Family Medicine
DX: E56.9 Vitamin deficiency, unspecified (principal); I49.3 Ventricular premature depolarization; R09.89 Other specified symptoms and signs involving the circulatory and respiratory systems; Z79.899 Other long term (current) drug therapy
CPT/HCPCS: 36415; 80053; 82306; 82607; 84443; 85025; 87015; 87116; 87149; 87206

== ENCOUNTER 2021-04-05 15:48 | Outpatient (CLI) | payer MEDICARE, OTHER, SELFPAY | END 2021-04-05 15:49 | disposition home or self-care (01) | LOC: ANHLAB 15:52 | PROVIDERS: PCP Family Medicine; Visit Provider Internal Medicine | DX: A31.0 Pulmonary mycobacterial infection (principal) | CPT/HCPCS: 87015; 87116; 87206 ==

== ENCOUNTER 2021-05-03 14:14 | Outpatient (CLI) | payer MEDICARE, OTHER, SELFPAY | END 2021-05-03 14:15 | disposition home or self-care (01) | LOC: ANHLAB 14:18 | PROVIDERS: PCP Family Medicine; Visit Provider Internal Medicine | DX: A31.0 Pulmonary mycobacterial infection (principal) | CPT/HCPCS: 87015; 87116; 87205; 87206 ==

== ENCOUNTER 2021-08-25 13:07 | Outpatient (CLI) | payer MEDICARE, OTHER, SELFPAY ==
[2021-08-28 21:43] LABS: Vitamin D 1,25 (OH)2 Total 59 pg/mL (18-72); Vitamin D2 1,25 (OH)2 <8 pg/mL; Vitamin D3 1,25 (OH)2 59 pg/mL
== END 2021-08-25 13:08 | disposition home or self-care (01) ==
LOC: ANHLAB 13:10
PROVIDERS: PCP Family Medicine; Visit Provider Family Medicine
DX: R53.83 Other fatigue (principal); Z79.899 Other long term (current) drug therapy; E55.9 Vitamin D deficiency, unspecified
CPT/HCPCS: 36415; 82652

== ENCOUNTER 2022-01-13 12:24 | Outpatient (CLI) | payer MEDICARE, OTHER, SELFPAY | END 2022-01-13 12:25 | disposition home or self-care (01) | PROVIDERS: PCP Family Medicine; Referring Provider Student in an Organized Health Care Education/Training Program; Visit Provider Family Medicine | DX: A31.0 Pulmonary mycobacterial infection (principal) | CPT/HCPCS: 87070; 87077; 87147; 87181; 87186; 87205 ==

== ENCOUNTER 2022-11-25 12:34 | Emergency (ER) | payer MEDICARE, OTHER, SELFPAY ==
[2022-11-25] VITALS (9 sets, daily range): BP systolic 146–193; BP diastolic 69–92; PULSE 84–100; RESP 16–22; TEMP 36.9; O2SAT 93–99
--- NOTE | ~2022-11-25 | XR_ITS ---
EXAMINATION: XR chest 2V DATE: 11/25/2022 13:18 INDICATION: Chest pain TECHNIQUE: PA and lateral views of the chest were obtained. COMPARISON: Chest radiograph dated 01/31/2020 FINDINGS: Hyperexpansion of lungs with increased lucency and architectural distortion in the upper lung zones a nd flattening of the diaphragm suggestive but not diagnostic of COPD. Mild biapical pleural-parenchym al scarring. Chronic reticular opacities in the bilateral lower lung zones which could be due to mild pulmonary edema, pneumonia or more chronic interstitial lung disease. Unchanged oblique band of disc oid atelectasis/scarring along one of the major fissures. The cardiomediastinal silhouette is normal. Thoracic kyphosis with chronic mild anterior wedging of a few mid thoracic vertebral bodies. Severe spondylosis. IMPRESSION: 1. Chronic reticular opacities in bilateral lower lung zones which in the acute setting could represe nt mild pulmonary edema or pneumonia or more chronic interstitial lung disease. 2. Hyperexpansion lungs suggestive but not diagnostic of COPD. Reviewed, dictated and finalized at location A. CHER UTILITY IMPRESSION: 1. Chronic reticular opacities in bilateral lower lung zones which in the acute setting could represent mild pulmonary edema or pneumonia or more chronic inte rstitial lung disease. 2. Hyperexpansion lungs suggestive but not diagnostic of COPD.
--- NOTE | 2022-11-25 12:48 | ECG_ITS ---
Measurements Intervals [place] Rate: 95 P: 89 MI: 168 QRS: -32 QRSD: 130 T: 118 QT: 358 QTc: 451 Interpretive Statements SINUS RHYTHM LEFT AXIS DEVIATION LEFT BUNDLE BRANCH BLOCK BASELINE WANDER- V1 ABNORMAL ECG COMPARED TO ECG 02/01/2020 10:37:25 NO SIGNIFICANT CHANGES Electronically Signed On 11-25-2022 12:52:24 MICROFILM OPERATOR by Mario Jack D.O.
[2022-11-25 12:58] LABS: Basophils Percent Auto 0.4 % (0.2-1.2); Eosinophils Absolute Auto 0.1 K/mm3 (0-0.3); Eosinophils Percent Auto 0.7 % (0-4.4); Hematocrit 42.8 % (37.0-47.0); Immature Granulocyte Absolute 0.03 K/mm3 (0.00-0.031); Immature Granulocyte Percent A 0.3 % (0-0.5); Lymphocytes Absolute Auto 2.82 K/mm3 (0.9-3.2); Lymphocytes Percent Auto 27.3 % (18.3-44.2); Mean Corpuscular HGB Conc 32.7 g/dl (32-36); Mean Corpuscular Volume 88.6 fl (80-100); Mean Platelet Volume 9.4 fl (7.4-10.4); Monocytes Absolute Auto 0.7 K/mm3 (0.1-0.6); Monocytes Percent Auto 6.5 % (2.6-8.5); Neutrophils Absolute Auto 6.7 K/mm3 (1.3-6.7); Neutrophils Percent Auto 64.8 % (45.5-73.1); Platelet Count Result 299 k/mm3 (150-375); Red Blood Count 4.83 M/mm3 (4.2-5.4); Red Cell Distribution Width 13.3 % (11.5-14.5); White Blood Count 10.3 K/mm3 (4.5-10.0)
--- NOTE | 2022-11-25 12:59 | ED.ARRPALP ---
HPI - Arrhythmia/Palpitations General Chief Complaint: Arrhythmia/Palpitations Stated Complaint: HEART PALPATATIONS Time Seen by Provider: 11/25/22 12:38 Source: family and RN notes reviewed History of Present Illness HPI narrative: Patient presents emergency department from home for palpitations. Patient states that she has a history of PVCs and has been feeling increased palpitations over the past 6 days. States that this has been associated with a feeling of heaviness on her chest over the past 4 days states that that heaviness has been constant and does not change in intensity states that she has a history of bronchiectasis and had recent upper respiratory infection has been on Levaquin she feels that the Levaquin may have increased her feelings of PVCs she also states that she has been under increased stress recently as this is the 1 year anniversary of her 's she has also been building a guest house outside of her daughter's house and she has been having to pick out all of the items for this and this has been causing her increased stress as well she states that she is followed by Dr. Plaza has an appointment with Afia Connor on she denies any fevers or chills she denies any new shortness of breath but states she has chronic shortness of breath secondary to her bronchiectasis denies any abdominal pain nausea or vomiting patient states that she had stopped her metoprolol for a while as they thought it was making her shortness of breath worse but restarted approximately 5 days ago patient states she did have a cardiac catheterization in 2019 that was normal with no stents placed Related Data Home Medications Medication Instructions Recorded Confirmed umeclidinium 62.5 mcg-vilanterol 1 inh inhalation DAILY 08/24/21 03/06/22 25 mcg/actuation powdr for inhalation (Anoro Ellipta) Allergies Allergy/AdvReac Type Severity Reaction Status Date / Time albuterol [ProAir HFA] Allergy Unknown mouth sores Verified 03/06/22 11:30 dog dander Allergy Unknown Asthma Verified 03/06/22 11:30 levofloxacin Allergy Unknown tendonitis Verified 03/06/22 11:30 Review of Systems Review of Systems: Gen.: Denies fevers or chills ENT: Denies reports chronic shortness of CV: See HPI GI: Denies abdominal pain nausea, emesis or diarrhea Musculoskeletal: Denies back pain or muscle pain Neuro: Denies numbness, tingling, weakness or focal weakness Skin: Denies rash Except as documented, all other systems reviewed and negative [facility] Past Medical History Medical History Chest tightness 5-20 Normal cardiac cath Chronic lung disease Frequent PVCs Family History Family History Sibling Family history of tuberculosis Mother Diabetes mellitus Social History Social History Years smoked: 5 Smoking status: Former smoker Tobacco type: cigarettes Second hand tobacco smoke exposure: Yes Alcohol intake: current Drinks per week: 0 Substance use: never Spiritual care concerns: Yes (Yazidism) Exam Narrative: APPEARANCE: No acute distress, nontoxic, resting in bed EYES: EOMI HEENT: Normocephalic, atraumatic, OMM RESPIRATORY: No respiratory distress Clear to auscultation bilaterally with no rhonchi wheezing or rales. CARDIOVASCULAR: Regular rate and rhythm without murmurs rubs or gallops. ABDOMINAL: Soft, nontender, nondistended, no rebound or guarding MUSCULOSKELETAl: Moves all extremities. No clubbing, cyanosis or edema. NEURO: Awake and alert. Following commands, speech normal, no focal deficits SKIN:: Warm, dry. No rashes lesions or abrasions PSYCHIATRIC: Normal affect/mood, Course Course Emergency Course: Patient remained on security monitor throughout the stay in the emergency department occasional PVC noted but no frequent PVCs I reviewed the pat
[2022-11-25 13:08] LABS: Partial Thromboplastin Time 25.5 SECONDS (22.3-36.8); Prothrombin Time 12.6 Seconds (11.1-14.7)
[2022-11-25 13:09] LABS: Alanine Aminotransferase 19 U/L (6-35); Albumin Level 4.6 g/dL (3.5-5.1); Alkaline Phosphatase 85 U/L (38-126); Anion Gap 7 mmol/L (8-16); Aspartate Amino Transferase 24 U/L (14-36); Bilirubin,Total 0.5 mg/dL (0.2-1.3); Blood Urea Nitrogen 15 mg/dL (7-17); Calcium 9.4 mg/dL (8.4-10.2); Carbon Dioxide 28 mmol/L (22-30); Chloride 102 mmol/L (98-107); Estimated CRCL calculation 54 ml/min; Estimated Glomerular Filt Rate > 60; Glucose 114 mg/dL (65-110); Lipase 71 U/L (23-300); Potassium 4.1 mmol/L (3.4-5.0); Sodium 137 mmol/L (137-145)
[2022-11-25 13:20] LABS: Troponin I < 0.012 ng/mL (0.000-0.034)
[2022-11-25 13:22] LABS: Appearance Urine Cloudy (Clear); Bacteria Urine None Seen /hpf; Bilirubin Urine Negative (Negative); Blood Urine Negative (Negative); Color Urine Yellow (Yellow); Glucose Urine UA Negative (Negative); Ketones Urine Negative (Negative); Leukocyte Esterase Ur Trace LEU/UL (Negative); Nitrate Urine Negative (Negative); Non Pathogenic Casts 0-2; Protein Urine Negative (Negative); RBC Urine 0-2 /hpf (0-2); Specific Grav Ur 1.004 (1.001-1.035); Squamous Epithelial Cell Urine None seen /hpf (Few); Urobilinogen Urine 0.2 mg/dL (<2.0); WBC Urine 0-5 /hpf; pH Urine 6.5 (5.0-9.0)
[2022-11-25 13:23] LABS: Add Urine Microscopic? YES
[2022-11-25 14:02] LABS: Magnesium 2.1 mg/dL (1.6-2.3)
[2022-11-25 14:12] LABS: NT Pro B Type Natriuretic Pept 552 pg/mL (19.9-100)
[2022-11-25 16:32] LABS: Troponin I < 0.012 ng/mL (0.000-0.034)
== END 2022-11-25 18:14 | disposition home or self-care (01) ==
PROVIDERS: Emergency Provider Emergency Medicine; PCP Family Medicine
DX: I49.3 Ventricular premature depolarization (principal); R07.9 Chest pain, unspecified; F41.9 Anxiety disorder, unspecified; R06.02 Shortness of breath
CPT/HCPCS: 36415; 71046; 80053; 81001; 83690; 83735; 83880; 84443; 84484; 85025; 85610; 85730; 93005; 99284; A9270

== ENCOUNTER 2023-03-30 14:34 | Outpatient (CLI) | payer MEDICARE, OTHER, SELFPAY ==
--- NOTE | ~2023-03-30 | XR_ITS ---
EXAMINATION: XR chest 2V DATE: 03/30/2023 14:59 INDICATION: Persistent cough TECHNIQUE: PA and lateral views of the chest are obtained. COMPARISON: 11/25/2022 FINDINGS: The lungs are hyperinflated but free of acute opacities. No pleural effusion or pneumothora x. The cardiomediastinal silhouette is normal. There is moderate thoracic spondylosis. IMPRESSION: 1. No acute cardiopulmonary abnormality. Reviewed, dictated and finalized at location B.
== END 2023-03-30 14:35 | disposition home or self-care (01) ==
PROVIDERS: PCP Family Medicine; Visit Provider Family Medicine
DX: R05.9 Cough, unspecified (principal); J40 Bronchitis, not specified as acute or chronic
CPT/HCPCS: 71046

== ENCOUNTER 2023-07-06 13:37 | Outpatient (CLI) | payer MEDICARE, OTHER, SELFPAY ==
[2023-07-06 14:53] LABS: Basophils Percent Auto 0.2 % (0.2-1.2); Eosinophils Percent Auto 0.5 % (0-4.4); Hematocrit 42.9 % (37.0-47.0); Hemoglobin 13.3 g/dL (12.0-15.0); Immature Granulocyte Absolute 0.03 K/mm3 (0.00-0.031); Immature Granulocyte Percent A 0.4 % (0-0.5); Lymphocytes Absolute Auto 2.04 K/mm3 (0.9-3.2); Mean Corpuscular Hemoglobin 28.5 pg (26-34); Mean Corpuscular Volume 92.1 fl (80-100); Mean Platelet Volume 10.4 fl (7.4-10.4); Monocytes Absolute Auto 0.5 K/mm3 (0.1-0.6); Monocytes Percent Auto 5.5 % (2.6-8.5); Neutrophils Absolute Auto 5.6 K/mm3 (1.3-6.7); Neutrophils Percent Auto 68.4 % (45.5-73.1); Platelet Count Result 262 k/mm3 (150-375); Red Blood Count 4.66 M/mm3 (4.2-5.4); Red Cell Distribution Width 13.5 % (11.5-14.5); White Blood Count 8.2 K/mm3 (4.5-10.0)
[2023-07-06 15:23] LABS: Alanine Aminotransferase 17 U/L (6-35); Albumin Level 4.2 g/dL (3.5-5.1); Alkaline Phosphatase 70 U/L (38-126); Anion Gap 6 mmol/L (8-16); Aspartate Amino Transferase 22 U/L (14-36); Bilirubin,Total 0.4 mg/dL (0.2-1.3); Blood Urea Nitrogen 14 mg/dL (7-17); Carbon Dioxide 30 mmol/L (22-30); Chloride 100 mmol/L (98-107); Estimated Glomerular Filt Rate > 60; Glucose 209 mg/dL (65-110); Potassium 4.3 mmol/L (3.4-5.0); Sodium 136 mmol/L (137-145)
[2023-07-06 15:32] LABS: Iron 93 ug/dL (37-170)
[2023-07-06 15:34] LABS: NT Pro B Type Natriuretic Pept 969 pg/mL (19.9-100)
[2023-07-06 15:41] LABS: Percent Iron Saturation 37 % (20-50)
== END 2023-07-06 13:38 | disposition home or self-care (01) ==
LOC: ANHLAB 13:40
PROVIDERS: PCP Family Medicine; Visit Provider Internal Medicine Cardiovascular Disease
DX: R06.09 Other forms of dyspnea (principal); I50.812 Chronic right heart failure; I49.3 Ventricular premature depolarization; F43.21 Adjustment disorder with depressed mood; Z14.8 Genetic carrier of other disease
CPT/HCPCS: 36415; 80053; 83540; 83550; 83880; 85025

== ENCOUNTER 2023-09-07 07:02 | Outpatient (CLI) | payer MEDICARE, OTHER, SELFPAY ==
[2023-09-07 07:41] LABS: Alanine Aminotransferase 17 U/L (6-35); Albumin Level 3.9 g/dL (3.5-5.1); Alkaline Phosphatase 64 U/L (38-126); Anion Gap 1 mmol/L (8-16); Aspartate Amino Transferase 21 U/L (14-36); Bilirubin,Total 0.6 mg/dL (0.2-1.3); Blood Urea Nitrogen 13 mg/dL (7-17); Calcium 9.1 mg/dL (8.4-10.2); Carbon Dioxide 32 mmol/L (22-30); Chloride 103 mmol/L (98-107); Estimated Glomerular Filt Rate > 60; Glucose 115 mg/dL (65-110); Potassium 4.6 mmol/L (3.4-5.0); Sodium 136 mmol/L (137-145)
[2023-09-07 08:56] LABS: Hemoglobin A1C 6.6 % (<5.7)
== END 2023-09-07 07:03 | disposition home or self-care (01) ==
LOC: ANHLAB 07:07
PROVIDERS: PCP Family Medicine; Visit Provider Nurse Practitioner Adult Health
DX: I50.812 Chronic right heart failure (principal); R73.9 Hyperglycemia, unspecified
CPT/HCPCS: 36415; 80053; 83036

== ENCOUNTER 2023-10-02 12:58 | Outpatient (RCR) | payer MEDICARE, OTHER, SELFPAY ==
[2023-10-02 13:23] VITALS: BMI 22.4
[2023-10-02 13:25] VITALS: BMI 22.4
== END 2023-12-17 10:48 | disposition home or self-care (01) ==
LOC: ANHDMC 12:58
PROVIDERS: PCP Family Medicine; Visit Provider Family Medicine
DX: E11.9 Type 2 diabetes mellitus without complications (principal); Z71.3 Dietary counseling and surveillance
CPT/HCPCS: 97802

== ENCOUNTER 2023-11-05 13:54 | Outpatient (CLI) | payer MEDICARE, OTHER, SELFPAY ==
--- NOTE | ~2023-11-05 | MM_ITS ---
EXAMINATION: MM diagnostic kathryn BI w rhonda HISTORY: Abnormal mass seen in left axilla on ultrasound. TECHNIQUE: Additional 3-D tomosynthesis images of the breasts were performed and synthetic 2-D images were generated. CAD analysis was submitted and interpreted. High resolution left axillary and Limite d left breast ultrasound was performed. COMPARISON: Comparison to multiple prior studies sequentially, with oldest reviewed study dated 03/16. BREAST PARENCHYMAL COMPOSITION: Not dense: There are scattered areas of fibroglandular density. FINDINGS: MAMMOGRAPHIC FINDINGS: There is a poorly circumscribed mass in the lower outer quadrant of the left breast posteriorly. Ther e is no mammographic evidence for malignancy in the right breast. There are benign bilateral breast c alcifications. ULTRASOUND: Limited left breast ultrasound and left axillary ultrasound: Complex mass present in the left axilla measuring 3.2 cm maximum dimension. This mass is heterogeneous, partially cystic with irregular leda ns and mixed posterior attenuation. There is internal vascularity. In the left breast at 3:00, 6 cm from the nipple there is an irregular shaped hypoechoic 4 mm mass wi thout internal vascularity or posterior features. IMPRESSION: 1. Irregular shaped hypoechoic 4 mm left breast mass corresponding to the mammographic finding. Compl ex left axillary mass, suspicious for metastatic disease. 2. Ultrasound-guided left breast and axillary biopsies recommended. BI-RADS category 4, suspicious findings. Reviewed, dictated and finalized at location A. CTOR OF OPTIMIZATION IMPRESSION: 1. Irregular shaped hypoechoic 4 mm left breast mass corresponding to the mammo graphic finding. Complex left axillary mass, suspicious for metastatic disease. 2. Ultrasound-guided left breast and axillary biopsies recommended. BI-RADS category 4, suspicious findings.
--- NOTE | ~2023-11-05 | US_ITS ---
US axilla LT 11/05/2023 14:07 Indication: Palpable left axillary mass Procedure: High-resolution Limited ultrasound of the left axilla Comparison: No prior studies for comparison. Findings: In the area of palpable concern there is a complex partially cystic mass measuring 3.2 x 2. 5 x 1.7 cm with internal vascularity. Impression: 1: Complex vascular partially cystic mass of the left axilla measuring 3.2 cm. Correlation with diagn ostic bilateral mammogram recommended. BI-RADS CATEGORY 0 - INCOMPLETE STUDY, NEED ADDITIONAL IMAGING EVALUATION. Reviewed, dictated and finalized at location A. UTIVE SALES ASSISTANT Impression: 1: Complex vascular partially cystic mass of the left axilla measuring 3.2 cm. Correlation with diagnostic bilateral mammogram recommended. BI-RADS CATEGORY 0 - INCOMPLETE STUDY, NEED ADDITIONAL IMAGING EVALUATION.
== END 2023-11-05 13:55 ==
PROVIDERS: PCP Family Medicine; Visit Provider Emergency Medicine
DX: N63.32 Unspecified lump in axillary tail of the left breast (principal)
CPT/HCPCS: 76882; 77062; 77066; G0279

== ENCOUNTER 2023-11-21 09:19 | Outpatient (CLI) | payer MEDICARE, OTHER, SELFPAY ==
--- NOTE | ~2023-11-21 | US_ITS ---
EXAMINATION: US GUIDED NEEDLE BIOPSY DATE: 11/21/2023 11:32 SFDC ARCHITECT INDICATION: Palpable left axillary mass. Recent ultrasound demonstrated a 3:00 left breast mass. TECHNIQUE AND FINDINGS: The risks and potential benefits of the procedure were discussed with the patient, and written inform ed consent was obtained. Timeout procedure was performed. After sterile preparation of the left breas t, 1% lidocaine was utilized for local anesthesia. A 12 G spring-loaded biopsy gun needle was advanced to the edge of the region of interest from a supe rior approach utilizing sonographic guidance. A total of 4 tissue core samples were obtained through the lesion. An Inrad tissue marker clip was then placed at the biopsy site. Hemostasis was achieved . A sterile bandage was applied. Subsequently the left axillary area was prepared with sterile technique and 1% lidocaine local anesth etic. A 12-gauge spring-loaded biopsy gun needle was advanced into the lesion and a total of 4 views tissue core samples were obtained through the lesion. An) tissue marker clip was then placed at the b iopsy site. Hemostasis was achieved. A sterile bandage was applied. The patient tolerated procedure well and there was no evidence of immediate complication. The patien t was given verbal instructions prior to departing from the department. A two view mammogram was perf ormed to document tissue marker clip placement. The tissue samples were submitted to surgical patholo gy for histologic analysis. IMPRESSION: Ultrasound guided biopsy of left 3:00 breast mass and left axillary mass with biopsy marker placement . Please refer to pathology report for histologic analysis. Reviewed, dictated and finalized at Location A. Reviewed, dictated and finalized at location A. ARCHITECT IMPRESSION: Ultrasound guided biopsy of left 3:00 breast mass and left axillary mass with b iopsy marker placement. Please refer to pathology report for histologic analysi s.
--- NOTE | ~2023-11-21 | US_ITS ---
US_BXSTAXLIMG_US DATE: 11/21/2023 11:18 Please refer to 11/21/2023 ultrasound-guided needle biopsy report. IMPRESSION: Ultrasound-guided biopsy of right axillary soft tissue mass was performed in conjunction with ultrasound-guided biopsy of 3:00 left breast mass. 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 Reviewed, dictated and finalized at Location [facility]. Reviewed, dictated and finalized at location B. IMPRESSION: Ultrasound-guided biopsy of right axillary soft tissue mass was per formed in conjunction with ultrasound-guided biopsy of 3:00 left breast mass. 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
--- NOTE | ~2023-11-21 | MM_ITS ---
EXAMINATION: MM post biopsy invasive LT HISTORY: Post ultrasound-guided biopsy of left 3:00 breast lesion and left axillary mass TECHNIQUE: ML, MLO and CC views of left breast were performed following ultrasound-guided biopsy of l eft 3:00 breast lesion in left axillary mass. COMPARISON: 11/21/2023 left ultrasound guided biopsy of 3:00 mass and and left axillary mass FINDINGS: A coil biopsy marker is noted posteriorly in the outer mid left breast at approximately 3:0 0 position. Biopsy marker is not evident in the left axillary area but the left axillary mass may not be complete ly imaged mammographically. A biopsy marker was noted sonographically in the mass following the ultra sound-guided biopsy. IMPRESSION: Status post left 3:00 breast biopsy and left axillary biopsy Reviewed, dictated and finalized at location A. N ATTACHER
== END 2023-11-21 09:20 | disposition home or self-care (01) ==
PROVIDERS: PCP Family Medicine; Visit Provider Emergency Medicine
DX: C50.912 Malignant neoplasm of unspecified site of left female breast (principal); R59.0 Localized enlarged lymph nodes; R92.8 Other abnormal and inconclusive findings on diagnostic imaging of breast
CPT/HCPCS: 19083; 20999; 76942; 88305; 88342; A4648

== ENCOUNTER 2023-11-26 15:51 | Outpatient (CLI) | payer MEDICARE, OTHER, SELFPAY ==
[2023-11-26 16:12] LABS: Basophils Percent Auto 0.4 % (0.2-1.2); Eosinophils Absolute Auto 0.1 K/mm3 (0-0.3); Eosinophils Percent Auto 0.8 % (0-4.4); Hematocrit 44.2 % (37.0-47.0); Hemoglobin 13.6 g/dL (12.0-15.0); Immature Granulocyte Absolute 0.04 K/mm3 (0.00-0.031); Immature Granulocyte Percent A 0.4 % (0-0.5); Lymphocytes Absolute Auto 2.52 K/mm3 (0.9-3.2); Lymphocytes Percent Auto 22.7 % (18.3-44.2); Mean Corpuscular HGB Conc 30.8 g/dl (32-36); Mean Corpuscular Hemoglobin 28.1 pg (26-34); Mean Corpuscular Volume 91.3 fl (80-100); Monocytes Absolute Auto 0.9 K/mm3 (0.1-0.6); Monocytes Percent Auto 8.4 % (2.6-8.5); Neutrophils Absolute Auto 7.5 K/mm3 (1.3-6.7); Neutrophils Percent Auto 67.3 % (45.5-73.1); Platelet Count Result 285 k/mm3 (150-375); Red Blood Count 4.84 M/mm3 (4.2-5.4); Red Cell Distribution Width 13.4 % (11.5-14.5); White Blood Count 11.1 K/mm3 (4.5-10.0)
[2023-11-26 16:23] LABS: Alanine Aminotransferase 25 U/L (6-35); Albumin Level 4.2 g/dL (3.5-5.1); Alkaline Phosphatase 75 U/L (38-126); Anion Gap 8 mmol/L (8-16); Aspartate Amino Transferase 27 U/L (14-36); Bilirubin,Total 0.3 mg/dL (0.2-1.3); Blood Urea Nitrogen 21 mg/dL (7-17); Calcium 9.4 mg/dL (8.4-10.2); Carbon Dioxide 26 mmol/L (22-30); Chloride 101 mmol/L (98-107); Estimated Glomerular Filt Rate > 60; Glucose 113 mg/dL (65-110); Potassium 4.3 mmol/L (3.4-5.0); Sodium 135 mmol/L (137-145)
== END 2023-11-26 15:52 | disposition home or self-care (01) ==
PROVIDERS: PCP Family Medicine; Visit Provider Family Medicine
DX: R53.83 Other fatigue (principal)
CPT/HCPCS: 36415; 80053; 84443; 85025

== ENCOUNTER 2023-12-04 09:04 | Outpatient (CLI) | payer MEDICARE, OTHER, SELFPAY ==
--- NOTE | ~2023-12-04 | PE_ITS ---
EXAMINATION: PET skull to mid thigh DATE: 12/04/2023 11:46 INDICATION: Malignant neoplasm of the left breast TECHNIQUE: Blood glucose level was 113 mg/dL. 10.286 mCi of 18-fluorodeoxyglucose (18-FDG) was admini stered i.v. Low dose computed tomography (CT) images were acquired from the base of the brain to the proximal thighs for attenuation correction and anatomic localization. Positron emission tomography (P ET) images were acquired in the same distribution beginning 56 minutes after injection. Images includ ing fused PET/CT images were reconstructed in axial, coronal, and sagittal planes. Automated exposure control technique was employed. The dose-length product was 523.90mGy-cm. COMPARISON: None FINDINGS: Head/neck: There is symmetric increased activity in the oral cavity, laryngeal muscles and ocular muscles withou t CT correlate, likely physiologic. No pathologically enlarged cervical lymphadenopathy or suspicious foci of increased FDG uptake in the visualized head or neck. Chest: Calcified right lower lobe nodule along with calcified right hilar and mediastinal lymph nodes consis tent with old granulomatous disease. There is diffuse bronchial wall thickening with scattered mucous plugging throughout both lungs. There are also diffuse tree-in-bud opacities throughout both lungs. Discoid atelectasis in the right middle lobe and lingula along the major fissures. Subtle small focus of FDG uptake with maximal SUV of 1.5 in the inferior left upper lobe which without discrete nodular correlate. 2.4 x 2.2 cm FDG avid left axillary mass suspicious for metastatic lymph node with maycol l SUV of 10.9. There is a subcentimeter focus of increased FDG uptake at the lateral left breast with maximal SUV of 5.8 situated along a linear soft tissue density extending to the skin surface likely representing the recently biopsied breast cancer. Heart size is normal. No pericardial or pleural eff usion. Thoracic aorta is normal in caliber. No other pathologically enlarged or FDG avid thoracic roxanna nopathy. Abdomen/pelvis/proximal thighs: Physiologic renal accumulation and excretion of FDG activity in the kidneys, bladder and along portio ns of ureters. Normal degree and heterogenous pattern of increased uptake throughout the liver. There is a subcentimeter focus of mild uptake in the in the liver at the junction of the caudate and right hepatic lobes with maximal SUV of 3.5. This is slightly higher than the maximal SUV throughout the r emainder of the liver which measures up to 3.2 but is is without correlate on the CT imaging. The gal lbladder, pancreas, spleen and bilateral adrenal glands are normal. Mild uptake scattered throughout the bowels without radiologic correlate, also likely physiologic. The uterus is not identified and beltrán s likely been surgically resected. 3.5 cm right adnexal cyst. No other abnormal foci of increased FDG uptake or pathologically enlarged lymphadenopathy in the abdomen, pelvis or proximal thighs. Musculoskeletal: Left hip arthroplasty. Thoracic kyphosis with likely chronic mild anterior wedging of a few mid thora cic vertebral bodies. No suspicious lytic, blastic or FDG avid bone lesions identified. Increased upt monse in the soft tissues overlying the right greater trochanter without radiologic correlate most cons istent with trochanteric bursitis. IMPRESSION: 1. Small focus of mild uptake at the lateral left breast likely representing the site of the biopsied primary breast cancer and moderate increased uptake at a 2.4 cm left axillary mass consistent with m etastatic disease. 2. Subcentimeter focus of mild uptake at the junction of the caudate and right hepatic lobes which is slightly greater than the remainder of the hepatic parenchyma but without radiologic correlate which is equivocal for metastatic disease versus artifact of the typical heterogeneity of normal hepatic u ptake. This would affect abraham
[2023-12-04 09:35] LABS: Glucose Point of Care 113 mg/dl (65-105)
== END 2023-12-04 09:05 | disposition home or self-care (01) ==
PROVIDERS: PCP Family Medicine; Visit Provider Internal Medicine Hematology & Oncology
DX: C50.612 Malignant neoplasm of axillary tail of left female breast (principal); Z17.0 Estrogen receptor positive status [ER+]
CPT/HCPCS: 78815; A9552

== ENCOUNTER 2023-12-06 09:38 | Outpatient (CLI) | payer MEDICARE, OTHER, SELFPAY ==
--- NOTE | ~2023-12-06 | MR_ITS ---
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 TECHNIQUE: MRI of the breasts perform using standard protocol pre-and post IV contrast with the follo wing sequences: Axial T2 STIR, axial T1, axial vibrant T1 with fat suppression precontrast and multip hasic postcontrast. 11 cc MultiHance administered intravenously. COMPARISON: Diagnostic mammogram dated 11/05/2023 and FINDINGS: There are no abnormalities on the precontrast sequences. There is minimal background parenc hymal enhancement. No enhancing lesions following contrast administration. No areas of enhancement meeting threshold criteria on CAD analysis. No evidence of signal abnormalities in the axillary or i nternal mammary node distributions. LEFT BREAST: No signal abnormalities on precontrast sequences. There is minimal background parenchym al enhancement. There is a heterogeneously enhancing mass in the lower inner quadrant of the left pedro ast at approximate 7:00, middle third measuring 6 x 5 x 5 mm with rapid washout enhancement there is an amorphous lymph node mass in the left axilla inferiorly measuring 3.3 x 3.1 x 1.8 cm with heteroge neous enhancement. The mass abuts the chest wall, suspicious for invasion, best seen on sagittal sequ ence. IMPRESSION: 1: Right breast: Negative. No evidence of malignancy. BI-RADS category 1. Recommend annual mammo graphy follow-up. 2: Left breast: Heterogeneously enhancing 6 mm left breast mass at 7:00, middle third, approximately 8.1 cm posterior to the nipple. Abnormal lymph node mass inferior left axilla with heterogeneous enh ancement. Constellation of findings compatible with known invasive ductal carcinoma with metastatic d isease to the axilla. BI-RADS category 6- Known biopsy proven malignancy: Appropriate action should b e taken. Reviewed, dictated and finalized at location A. IMPRESSION: 1: Right breast: Negative. No evidence of malignancy. BI-RADS category 1. Recommend annual mammography follow-up. 2: Left breast: Heterogeneously enhancing 6 mm left breast mass at 7:00, middl e third, approximately 8.1 cm posterior to the nipple. Abnormal lymph node mass inferior left axilla with heterogeneous enhancement. Constellation of findings compatible with known invasive ductal carcinoma with metastatic disease to the axilla. BI-RADS category 6- Known biopsy proven malignancy: Appropriate action should be taken.
== END 2023-12-06 09:39 | disposition home or self-care (01) ==
LOC: ANHIMG 09:53
PROVIDERS: PCP Family Medicine; Visit Provider Surgery
DX: C50.912 Malignant neoplasm of unspecified site of left female breast (principal); C77.9 Secondary and unspecified malignant neoplasm of lymph node, unspecified
CPT/HCPCS: 77049; A9577; C8908

== ENCOUNTER 2023-12-20 14:30 | Outpatient (CLI) | payer MEDICARE, OTHER, SELFPAY ==
--- NOTE | ~2023-12-20 | MR_ITS ---
EXAMINATION: MR abdomen wo/w con DATE: 12/20/2023 15:33 INDICATION: Liver mass TECHNIQUE: Magnetic resonance imaging (MRI) of the abdomen was performed without and with 11 mL Multi melina intravenous contrast. Sequences included coronal T2-weighted SS-FSE, coronal and axial FS 2D-F IESTA, axial STIR FSE, axial T2-weighted SS-FSE, axial T2-weighted FS SS-FSE, axial diffusion-weighte d SE, axial dual-echo T1-weighted FSPGR, and axial and coronal T1-weighted LAVA. Postcontrast axial T 1-weighted LAVA images were obtained in a time course. Postcontrast coronal T1-weighted LAVA images w ere obtained. COMPARISON: PET/CT dated 12/04/2023 FINDINGS: Arch size is normal. No pericardial or pleural effusion. Bandlike discoid atelectasis in the right lo wer lobe. Additional 10 x 5 mm paravertebral nodule at the posterior basilar right lower lobe. Hepato megaly. 5 mm T2 hyperintense nonenhancing cyst in the right hepatic lobe. No other suspicious hepatic lesions. Specifically no correlate for the subtle focus of minimal increased uptake at the junction of the right and caudate lobes of the liver which is likely artifactual. Low signal intensity gallsto tyrell the dependent aspect of the otherwise normal gallbladder. There are few simple appearing T2 hyper intense nonenhancing renal cysts measuring up to 1.5 cm in the left kidney. 7 mm mildly T2 hyperinten se lesion at the dome of the spleen which demonstrates mild delayed enhancement on the 10 minute imag es most consistent with a hemangioma. Pancreas and bilateral adrenal glands are normal. No pathologic ally enlarged abdominal or upper pelvic lymphadenopathy. Bowels are unremarkable with no obstruction. 3.6 cm right adnexal cyst. Bladder is unremarkable. Mild thoracolumbar levocurvature with mild spond ylosis. Severe disc height loss at L5-S1. Metallic magnetic field artifact associated with a left tot al hip arthroplasty. Nonenhancing T2 hyperintense subarticular cystic change at the posterior inferio r and anterosuperior right acetabulum. IMPRESSION: 1. No correlate identified for the small focus of relative increased FDG uptake identified in the melina er at the junction of the right and left hepatic lobes which most likely artifactual. No hepatic lesi ons suspicious for metastatic disease. 2. Indeterminate 10 x 5 mm right lower lobe nodule which is without evident FDG uptake on prior study which most likely represents either atelectasis/scarring or sequela of prior infection. Consider 6 m onth follow-up chest CT. Reviewed, dictated and finalized at location A. IMPRESSION: 1. No correlate identified for the small focus of relative increased FDG uptake identified in the liver at the junction of the right and left hepatic lobes wh ich most likely artifactual. No hepatic lesions suspicious for metastatic disea se. 2. Indeterminate 10 x 5 mm right lower lobe nodule which is without evident FDG uptake on prior study which most likely represents either atelectasis/scarring or sequela of prior infection. Consider 6 month follow-up chest CT.
== END 2023-12-20 14:31 | disposition home or self-care (01) ==
LOC: ANHIMG 14:31
PROVIDERS: PCP Family Medicine; Visit Provider Internal Medicine Hematology & Oncology
DX: R16.0 Hepatomegaly, not elsewhere classified (principal)
CPT/HCPCS: 74183; A9577

== ENCOUNTER 2024-01-02 14:23 | Outpatient (CLI) | payer MEDICARE, OTHER, SELFPAY ==
[2024-01-02 15:36] LABS: NT Pro B Type Natriuretic Pept 324 pg/mL (19.9-100)
[2024-01-02 19:07] LABS: Iron 94 ug/dL (37-170)
[2024-01-02 19:16] LABS: Percent Iron Saturation 37 % (20-50)
== END 2024-01-02 14:24 | disposition home or self-care (01) ==
PROVIDERS: PCP Family Medicine; Referring Provider Surgery; Visit Provider Internal Medicine Cardiovascular Disease
DX: I49.3 Ventricular premature depolarization (principal); I50.812 Chronic right heart failure; R06.09 Other forms of dyspnea; F43.21 Adjustment disorder with depressed mood; Z14.8 Genetic carrier of other disease
CPT/HCPCS: 36415; 83540; 83550; 83880

== ENCOUNTER 2024-01-11 09:16 | Outpatient (CLI) | payer MEDICARE, OTHER, SELFPAY ==
--- NOTE | ~2024-01-11 | MM_ITS ---
MM post biopsy invasive LT DATE: 01/11/2024 11:43 INDICATION: Post ultrasound-guided Magseed placement TECHNIQUE: ML and CC views of left breast COMPARISON: None FINDINGS: Radiopaque Magseed marker is noted adjacent to approximately 6 mm soft tissue mass in the posterior outer mid left breast. IMPRESSION: Successful deployment of Magseed marker at posterior 3:00 left breast mass Reviewed, dictated and finalized at Location A. Reviewed, dictated and finalized at location A. IMPRESSION: Successful deployment of Magseed marker at posterior 3:00 left pedro ast mass
--- NOTE | ~2024-01-11 | US_ITS ---
US_MAGSEEDLT_US DATE: 01/11/2024 10:09 INDICATION: Preoperative Magseed localization of left 3:00 breast mass TECHNIQUE: The purpose of the procedure, technique and findings consultations were discussed with the patient. The patient verbalized understanding and gave consent. Timeout procedure was performed. The skin of the left breast was prepared sterile Betadine, sterile drapes were placed and 1% lidocain e local anesthetic was administered to the skin and underlying subcutaneous tissues. Using ultrasound guidance, an introducer needle for the MAG3 was placed with the distal tip along the posterior leda n of the 3:00 left breast mass. The Magseed was deployed through the tip of the needle and the needle was withdrawn. The patient was very cooperative and tolerated the procedure well, without complaint. IMPRESSION: Ultrasound-guided Magseed placement at left breast 3:00 mass Reviewed, dictated and finalized at Location A. Reviewed, dictated and finalized at location A.
== END 2024-01-11 09:17 | disposition home or self-care (01) ==
PROVIDERS: PCP Family Medicine; Visit Provider Physician Assistant Surgical
DX: C50.912 Malignant neoplasm of unspecified site of left female breast (principal)
CPT/HCPCS: 19285; A4648

== ENCOUNTER 2024-01-24 13:26 | Outpatient (CLI) | payer MEDICARE, OTHER, SELFPAY ==
--- NOTE | 2024-01-24 13:34 | ECG_ITS ---
SEE SCANNED COPY FOR CONFIRMED REPORT MTDD
== END 2024-01-24 13:27 | disposition home or self-care (01) ==
PROVIDERS: PCP Family Medicine; Visit Provider Surgery
DX: Z01.818 Encounter for other preprocedural examination (principal); I49.3 Ventricular premature depolarization
CPT/HCPCS: 93005

== ENCOUNTER 2024-01-30 01:26 | Day surgery (SDC) | payer MEDICARE, OTHER, SELFPAY ==
--- NOTE | 2024-01-21 11:13 | PC.NURSE ---
Report to the Outpatient Waiting Room, entrance under the green pavilion located off [facility], at time __6:45 AM on date ___01/30/24____. Planned Procedure Time: __9:00 AM NUCLEAR MED AT 0745 . Time changes happen often and if your time is changed the preop area will call you the afternoon before. - You and your visitor will be asked to self-screen and do not enter if you have any COVID symptoms. - A mask is optional within the hospital at this time. Patients may have clear liquids (water, carbonated beverages, clear teas, apple juice) until 3 hours prior to surgery ( 5:45 AM)with a maximum of 20 ounces. - No food from midnight until time of surgery - Infants may have breast milk until 4 hours before surgery, formula 6 hours prior to surgery. - Children will be allowed to drink immediately following surgery. If applicable, please bring a bottle or sippy cup to assist with drinking. Juice, water, soda, and popsicles are readily available. For infants on formula, please bring formula the day of surgery. Pacifiers are allowed. Take the following medications with a SIP of water the morning of surgery: __ANORO INHALER,METOPROLOL,SERTRALINE, ALPRAZOLAM DO NOT STOP ANY OF YOUR OTHER PRESCRIPTION MEDICATIONS PRIOR TO SURGERY ?EXCEPT THE FOLLOWING Medications to discontinue per physician ___HOLD ALL VITAMINS AND SUPPLEMENTS 3 DAYS PRE O P. LAST DOSE 01/26/24 Please no make-up, nail burmese, hairspray, perfume, deodorant, or body powder the day of surgery. No jewelry (including any body piercings) or valuables the day of surgery, leave them at home. Please take a shower or bath the night before, or the morning of, surgery with an antibacterial soap. Wear comfortable, loose fitting clothing. Children are encouraged to wear pajamas. - Jewelry must be removed prior to entering the operating room. Rings and piercings that are not removed may be cut off. - The hospital will not accept responsibility for valuables. - Please leave all valuables, including medications, at home the day of surgery. If you are going home after surgery, a licensed airport shuttle driver must drive you home. - NO public transportation without another adult if you receive anesthesia. - We recommend that an adult stay with you for 24 hours following discharge. - We also recommend that you do not drive, make important decision, drink alcoholic beverages, or take any drugs that were not prescribed by your health care provider for at least 24 hours after your discharge time. Follow any additional instructions given to you from your surgeon. If you or anyone in your household have experienced Covid symptoms in the past week, please notify your surgeon or the nurse liaison at the phone number below for possible testing. Telephone instructions given to __PATIENT and asked if any additional questions and then verbalized understanding. Patient advised to call surgeon office or pre surgery nurse liaison [phone] if any additional questions.
[2024-01-21 11:28] VITALS: BMI 21.6
[2024-01-30] VITALS (8 sets, daily range): BP systolic 105–147; BP diastolic 49–61; PULSE 67–79; RESP 14–20; TEMP 36.3–36.7; O2SAT 94–100
--- NOTE | ~2024-01-30 | NM_ITS ---
NM sentinel node inject only DATE: 01/30/2024 09:05 INDICATION: Left breast cancer. TECHNIQUE: 4 equally divided doses totaling cumulative 1.040 mCi 99m technetium Tilanocept were injec terra subdermally at 12:00, 3:00, 6:00 and 9:00 periareolar areas. The patient was very cooperative and tolerated the procedure very well. IMPRESSION: Preoperative subdermal cumulative 1.040 mCi 99m technetium Tilanocept periareolar injecti ons Reviewed, dictated and finalized at Location A. Reviewed, dictated and finalized at location A. IMPRESSION: Preoperative subdermal cumulative 1.040 mCi 99m technetium Tilanoce pt periareolar injections
--- NOTE | ~2024-01-30 | MM_ITS ---
MM_FAXITRON_MG DATE: 01/30/2024 10:57 INDICATION: Left breast lumpectomy TECHNIQUE: Single noncompression digital mammographic exposure of surgical breast specimen tissue COMPARISON: 01/11/2024 post Magseed left mammogram FINDINGS: Magseed is present within the surgical soft tissue specimen. IMPRESSION: Magseed is present within the surgical soft tissue specimen Reviewed, dictated and finalized at Location A. Reviewed, dictated and finalized at location A.
[2024-01-30] MEDS: ACETAMINOPHEN 500 MG TABLET 1000 MG PO (07:00)
[2024-01-30] MEDS: LACTATED RINGERS 1,000 ML 30 ML IV CONT (07:00)
[2024-01-30] MEDS: LIDOCAINE/PRILOCAINE CREAM 2.5-2.5% TUBE 1 EACH TOPICAL (07:00)
--- NOTE | 2024-01-30 07:07 | P.HPUP_ITS ---
History and Physical Update Update Date/Time: 01/30/24 07:07 Left breast lumpectomy with Mag seed localization, excisional biopsy of left axillary mass, and left sentinel lymph node biopsy History and Physical has been reviewed, including an updated exam of the pat ient. There are NO changes in the patient's condition. Risks, benefits, and alternatives have been discussed and questions answered. Patient agrees to proceed with procedure.
--- NOTE | 2024-01-30 09:32 | WPDANESEPPF ---
Anes - Initial Pre Proc Eval Procedure: Operation Date: 01/30/24 09:00 Proposed Procedures p Left Breast Lumpectomy with Mag Seed, Left Axillary Mass Excision, Left Axillary [place] Lymph Node Biopsy - Andria Buchanan MD Date/Time: 01/30/24 09:32 Surgeon: Andria Buchanan MD Pre Op Diagnosis: left breast CA Patient Data Age: 83 Gender: F Height: 1.63 m Weight: 57.3 kg Last Vital Signs Temp 98.0 F 01/30/24 07:37 Pulse 73 01/30/24 07:37 Resp 16 01/30/24 07:37 BP 119/52 L 01/30/24 07:37 Pulse Ox 94 01/30/24 07:37 O2 Del Method Room Air 01/30/24 07:37 Allergies Allergy/AdvReac Type Severity Reaction Status Date / Time albuterol [ProAir HFA] Allergy Unknown mouth sores Verified 01/21/24 11:00 dog dander Allergy Unknown Asthma Verified 01/21/24 11:00 levofloxacin Allergy Unknown tendonitis Verified 01/21/24 11:00 Home Medications Medication Instructions Recorded Confirmed Type umeclidinium 62.5 mcg-vilanterol 1 inh inhalation DAILY 08/24/21 01/21/24 History 25 mcg/actuation powdr for inhalation (Anoro Ellipta) albuterol sulfate 90 mcg/actuation 2 inh inhalation Q4H PRN shortness 03/06/22 01/21/24 Rx aerosol inhaler (Ventolin HFA) of breath or wheezing #6.7 grams alprazolam 0.5 mg tablet 0.5 mg PO TID PRN Anxiety #90 tabs 08/29/23 01/21/24 Rx sacubitril 24 mg-valsartan 26 mg 1 tablet PO BID 08/29/23 01/21/24 History tablet (Entresto) metoprolol succinate 25 mg 25 mg PO QAM 09/28/23 01/21/24 History tablet,extended release 24 hr sertraline 25 mg tablet 75 mg PO DAILY #270 tabs 12/27/23 01/21/24 Rx calcium carb-Ca gluc 500 mg 1 tablet PO DAILY 01/21/24 01/21/24 History calcium-magnesium ox-Mg gluc 250 mg tablet (Calcium Magnesium) cholecalciferol (vitamin D3) 1,250 1,250 mcg PO WEEKLY 01/21/24 01/21/24 History mcg (50,000 unit) tablet magnesium 200 mg tablet 200 mg PO DAILY 01/21/24 01/21/24 History multivitamin (Daily Multi-Vitamin 1 tablet PO DAILY 01/21/24 01/21/24 History tablet) hydrocodone 5 mg-acetaminophen 325 1 tablet PO Q6-8H PRN pain #6 tabs 01/30/24 Rx mg tablet Patient hx anesthesia problems: none Family hx anesthesia problems: none Results Review: All pre-operative results and documents have been reviewed as part of the pre-operative evaluation. PMFSH Past Medical History Medical History Achilles tendinitis of left lower extremity Chest tightness 5-20 Normal cardiac cath Chronic lung disease Frequent PVCs Family History Family History Sibling Family history of tuberculosis Mother Diabetes mellitus Social History Social History Years smoked: 10 Smoking status: Former smoker Tobacco type: cigarettes Second hand tobacco smoke exposure: Yes Smoking end date: 09/17/74 Alcohol intake: current Drinks per week: 0 Substance use: never Substance use type: does not use Lack of Transportation: No Lack of Food: Never True Current Housing: I Have Housing Concerned About Future Housing: No Difficulty Paying Gas/Electric Bills: No Difficulty Paying for Meds: No Currently Unemployed: No Education: Associate Degree Difficulty w/ Childcare or Family Care: No Living arrangements: alone Spiritual care concerns: No Anes - Eval Final PreProcedure Day of Procedure 01/30/24 09:32 Patient weight: normal Heart: regular rate and rhythm Lungs: clear to auscultation Airway: Mallampati scale class II Neurological: alert and oriented Last oral intake: >/= 8 hours ASA classification: III Emergent: no Anesthetic plan: proceed Anesthesia type and monitoring: general ETT and standard monitoring Results Review: All pre-operative results and documents have been reviewed as part of the pre-operative evaluation. Informed Co
[2024-01-30] MEDS: ceFAZolin 2 GM/D5W 50 ML 2 GM/50 ML BAG IVPB (09:41)
[2024-01-30] MEDS: BUPIVACAINE/EPINEPHRINE 0.5% 10 ML VIAL 20 ML INFILTRATE (10:19)
--- NOTE | 2024-01-30 10:31 | SUR.OPER ---
Addendum entered by Miryam Luu RN 01/30/24 10:58: Katherine in mammography called at 1051. Dr. Soto read specimen at 1058 Addendum entered by Miryam Luu RN 01/30/24 10:33: Darya in Pathology received specimens @ 1033 Original Note: Left Axillary Mass excised @ 1017 PCT picked up to deliver to Path @ 1030 Pathology received @ Left [place] Lymph Node #1 and #2 (Navigator reading 231) excised @ 1019 PCT picked up to deliver to Path @ 1030 Pathology received @
--- NOTE | 2024-01-30 11:30 | W.PM.PROC2 ---
Procedure Note - Detailed Date of Procedure 01/30/24 Pre-op Diagnosis 1. Left breast invasive ductal carcinoma 2. Left axillary invasive papillary carcinoma Post-op Diagnosis Same Procedure Performed 1. Left lumpectomy with Mag seed localization 2. Excisional biopsy of left axillary mass, previous biopsy proven papillary carcinoma 3. Left sentinel lymph node biopsy Surgeon Andria Buchanan MD Senior Human Resources Representative Lissette Rudolph PA-C Anesthesia General Description of Procedure Patient was identified in the pre-operative area and brought to the OR suite. She underwent tumor localization previously by IR with magseed placement as well as lymphoseek injection for sentinel lymph node mapping by nuclear med. She was laid supine in the operating table and sequential compression devices were applied. General anesthesia was induced without difficulties. The left chest and axillary areas were prepped and draped in a sterile fashion. The gamma probe was used to find an area of high radio activity in the axilla which was just cephalad to the large palpable axillary mass in the small incision was made overlying this area. I then proceeded to excise the large palpable axillary mass EN bloc, care was taken to ensure that the thoracodorsal nerve and vessel bundle was protected. Once the large axillary mass was excised, it was sent to pathology as a fresh specimen. The gamma probe was then used to scan the axilla and a small node was identify that was high in radio activity. This was carefully dissected circumferentially and excised using the LigaSure. The sentinel lymph node count was approximately 231 and this was sent fresh to pathology. Within the specimen there was a 2nd lymph node that had a lower count, likely the sentinel lymph node 2. which was sent together. The gamma probe was again used to scan the axilla and no other node was found to have radio activity greater than 10% of the sentinel node. The axillary incision was then irrigated with saline hemostasis was assured. The clavipectoral fascia was closed with a running 3-0 Vicryl followed by 3-0 Vicryl deep dermal layer interrupted suture and 4-0 Monocryl for the subcuticular layer. Dermabond was applied and attention was then turned to the left breast. The sentimag probe was used to identify the area where the magseed was placed and inferior lateral inframammary incision was made. Dissection was carried down through the subcutaneous tissue into the breast tissue. The tumor was identified with palpation and using sentimag probe, and a rim of normal breast tissue was excised along with the tumor as our lumpectomy specimen. Once the specimen was completely excised, it was oriented using surgical paint according to windows mobile developer instructions. The specimen was placed in the faxitron and 1 radiograph was obtained and sent to Radiology for radiographic confirmation of Tumor, and magseed within the specimen. I had previously spoken with the radiologist who placed a Mag seed and performed the core needle biopsy initially and it was noted that the biopsy clip had migrated posteriorly and medial away from the tumor by about 3 cm, and was likely not going to be part of the specimen. Once the radiographic confirmation was received, the wound was irrigated with saline and hemostasis was assured. The deep dermal layer was approximated using interrupted 3-0 vicryl followed by 4-0 monocryl for the skin. Dermabond was applied followed by a surgical bra. Patient was awoken from anesthesia and taken to the recovery area in stable condition. All needles, instruments and sponge counts were correct as reported by the operating room staff. Patient tolerated the procedure well with no immediate complications. Lissette Rudolph PA-C was required for positioning and retraction throughout the entire case. Estimated Blood Loss 5 Pathology Yes Complications No immediate complications Condition Stable Disposition PACU [facility] Billing Surgery - Charge For
[2024-01-30] MEDS: fentaNYL CITRATE INJ (*CRX) 100 MCG/2 ML VIAL 25 MCG IV PUSH (11:40)
--- NOTE | 2024-01-30 13:37 | SUR.PHASEII ---
PATIENT VISITING WITH STAFF AND FAMILY.
== END 2024-01-30 13:56 | disposition home or self-care (01) ==
PROVIDERS: PCP Family Medicine; Visit Provider Surgery
PROC: (CPT 19301; principal; 2024-01-30 09:00)
DX: C50.912 Malignant neoplasm of unspecified site of left female breast (principal); C77.3 Secondary and unspecified malignant neoplasm of axilla and upper limb lymph nodes; J98.4 Other disorders of lung; I49.3 Ventricular premature depolarization; Z79.51 Long term (current) use of inhaled steroids; Z87.891 Personal history of nicotine dependence
CPT/HCPCS: 19301; 21556; 38525; 38792; 76098; 88305; 88307; 88342; A9270; A9520; C1713; J0690; J1100; J2405; J2704; J3010; J7120; Q9968

== ENCOUNTER 2024-03-19 08:57 | Outpatient (CLI) | payer MEDICARE, OTHER, SELFPAY ==
[2024-03-19 09:51] LABS: Alanine Aminotransferase 16 U/L (6-35); Albumin Level 4.3 g/dL (3.5-5.1); Alkaline Phosphatase 62 U/L (38-126); Anion Gap 3 mmol/L (4-12); Aspartate Amino Transferase 21 U/L (14-36); Bilirubin,Total 0.6 mg/dL (0.2-1.3); Blood Urea Nitrogen 14 mg/dL (7-17); Carbon Dioxide 32 mmol/L (22-30); Chloride 102 mmol/L (98-107); Cholesterol 174 mg/dL (0-200); Estimated Glomerular Filt Rate > 60; Glucose 104 mg/dL (65-110); HDL Direct 77 mg/dL; Potassium 4.3 mmol/L (3.4-5.0); Sodium 137 mmol/L (137-145); Triglycerides 57 mg/dL (<150)
[2024-03-19 10:02] LABS: LDL Cholesterol Direct 91 mg/dL
[2024-03-19 11:07] LABS: Hemoglobin A1C 6.2 % (<5.7)
== END 2024-03-19 08:58 | disposition home or self-care (01) ==
LOC: ANHLAB 09:00
PROVIDERS: PCP Family Medicine; Visit Provider Family Medicine
DX: E11.9 Type 2 diabetes mellitus without complications (principal)
CPT/HCPCS: 36415; 80053; 80061; 83036

== ENCOUNTER 2024-05-16 16:00 | Outpatient (CLI) | payer MEDICARE, OTHER, SELFPAY ==
--- NOTE | ~2024-05-16 | XR_ITS ---
XR chest 2V 05/16/2024 16:24 Indication: Mycobacterial infection. Procedure: 2 view chest Comparison: Comparison to multiple prior studies sequentially, with oldest reviewed study dated 01/30. Findings: There has been slow progression of coarse interstitial infiltrates bilaterally predominantl y affecting the lung bases. There is fissural thickening on the right. The lungs are hyperinflated wh ich is consistent with, but not diagnostic of chronic obstructive pulmonary disease. Accentuated thor acic kyphosis. There is atherosclerosis of the aorta. Impression: 1: Slow interval progression of coarse interstitial infiltrates bilaterally, consistent with chronic pulmonary fibrosis. Reviewed, dictated and finalized at location B. Impression: 1: Slow interval progression of coarse interstitial infiltrates bilaterally, co nsistent with chronic pulmonary fibrosis.
== END 2024-05-16 16:01 | disposition home or self-care (01) ==
LOC: ANHIMG 16:02
PROVIDERS: PCP Family Medicine; Visit Provider Nurse Practitioner Family
DX: A31.0 Pulmonary mycobacterial infection (principal); R91.8 Other nonspecific abnormal finding of lung field
CPT/HCPCS: 71046

== ENCOUNTER 2024-06-02 14:51 | Outpatient (CLI) | payer MEDICARE, OTHER, SELFPAY ==
--- NOTE | ~2024-06-02 | DEXA_ITS ---
Bone Density Report Name: HERIBERTO LUNA Age: 84 Sex: Female Ethnicity: White Date of : 1940 Indication: postmenopausal; screening for osteoporosis; height loss; prior fracture; cancer; asthma or emphysema; hysterectomy; Referring Provider: JESUS JAY Study: Bone densitometry was performed. Exam Date: June 02, 2024 Accession number: [id number] Bone Density: Region BMD T-score Z-score Classification AP Spine(L1-L4) 0.731 -2.9 -0.1 Osteoporosis Femoral Neck (Right) 0.476 -3.4 -0.9 Osteoporosis Total Hip (Right) 0.643 -2.5 -0.2 Osteoporosis World Health Organization criteria for BMD impression classify patients as: Normal (T-score at or above -1.0), Osteopenia (T-score between -1.0 and -2.5), or Osteoporosis (T-score at or below -2.5). 10-year Fracture Risk: FRAX not reported because: Some T-score for Spine Total or Hip Total or Femoral Neck at or below -2.5 Prior hip or vertebral fracture Clinical Information Provided by Patient: Have had a previous hip or vertebral fracture Has had a low trauma fracture Has used the following medications: Calcium Has the following medical conditions: Asthma or Emphysema, Cancer, Hysterectomy, breast CA Patient maximum height was 65.0 No regular weight bearing exercise Drinks caffeinated beverages Onset of menses at age 13 Number of children 4 Impression: The patient has established osteoporosis, based on the Right Femoral Neck T-score and the existence of a prior fracture. The patient has risk factors, including: previous fracture. Discussion: HIGH RISK OF FRACTURE. BONE DENSITY IS UNDESIRABLY LOW AT ONE OR MORE SKELETAL SITES, CONSISTENT WITH POSTMENOPAUSAL OSTEOPOROSIS. This patient's lowest T-score, in a patient who has previously fractured, meets the World Health Organization's (WHO) criteria for severe osteoporosis. In untreated patients, the risk of osteoporotic fracture increases approximately two-fold for each 1.0 SD decrease in T-score. Low bone density is not the only risk factor for fracture; also consider factors such as patient's age, frailty or poor health, risk of falling, risk of injury, previous osteoporotic fracture, family history of osteoporosis, cigarette smoking, low body weight, etc. Not everyone with low bone mineral density has osteoporosis; osteomalacia and other metabolic bone disorders should also be considered. Patients who have osteoporosis should be evaluated for specific diseases and conditions (secondary causes) that may cause or contribute to bone loss. The [place] [employer]ocrinologists (AACE) and National Osteoporosis Foundation (NOF) recommend pharmacologic intervention for all postmenopausal women with a previous hip or vertebral fracture and a T-score in this range. The patient should follow a healthful lifestyle (good nutrition with roxanna
== END 2024-06-02 14:52 | disposition home or self-care (01) ==
LOC: ANHIMG 14:53
PROVIDERS: PCP Family Medicine; Visit Provider Internal Medicine Hematology & Oncology
DX: M81.0 Age-related osteoporosis without current pathological fracture (principal)
CPT/HCPCS: 77080

== ENCOUNTER 2024-06-24 13:27 | Outpatient (CLI) | payer MEDICARE, OTHER, SELFPAY ==
--- NOTE | ~2024-06-24 | MMUS_ITS ---
EXAMINATION: US breast LT complete, MM diagnostic kathryn LT w rhonda HISTORY: Malignant neoplasm of the left breast TECHNIQUE: Additional 3-D tomosynthesis images of the left breast were performed and synthetic 2-D im ages were generated. CAD analysis was submitted and interpreted. High resolution complete left breast ultrasound was performed. COMPARISON: Comparison to multiple prior studies sequentially, with oldest reviewed study dated 03/16. BREAST PARENCHYMAL COMPOSITION: Not dense: There are scattered areas of fibroglandular density. FINDINGS: MAMMOGRAPHIC FINDINGS: There are postbiopsy changes in the left breast. No new masses, calcifications or architectural disto rtion, suspicious for malignancy. ULTRASOUND: Complete US of all 4 quadrants of the left breast/s and retroareolar region was reviewed. At 1:00 odalis r the nipple there is a small hypoechoic mass with echogenic center measuring 7 x 3 x 8 mm with paral lel orientation, no internal vascularity or significant posterior features. No other discrete masses identified. IMPRESSION: 1. Probable benign left breast mass at 1:00 near the nipple measuring 8 mm. 2. Recommend 6 month follow-up diagnostic bilateral mammogram and Limited left breast ultrasound. BI-RADS category 3, probably benign findings. Reviewed, dictated and finalized at location B. IMPRESSION: 1. Probable benign left breast mass at 1:00 near the nipple measuring 8 mm. 2. Recommend 6 month follow-up diagnostic bilateral mammogram and Limited left breast ultrasound. BI-RADS category 3, probably benign findings.
== END 2024-06-24 13:28 | disposition home or self-care (01) ==
PROVIDERS: PCP Family Medicine; Visit Provider Internal Medicine Hematology & Oncology
DX: C50.412 Malignant neoplasm of upper-outer quadrant of left female breast (principal)
CPT/HCPCS: 76641; 77061; 77065; G0279

== ENCOUNTER 2024-07-25 14:47 | Outpatient (CLI) | payer MEDICARE, OTHER, SELFPAY ==
[2024-07-25 15:18] LABS: Alanine Aminotransferase 17 U/L (6-35); Albumin Level 4.2 g/dL (3.5-5.1); Alkaline Phosphatase 66 U/L (38-126); Anion Gap 4 mmol/L (4-12); Aspartate Amino Transferase 22 U/L (14-36); Bilirubin,Total 0.5 mg/dL (0.2-1.3); Blood Urea Nitrogen 16 mg/dL (7-17); Calcium 9.2 mg/dL (8.4-10.2); Carbon Dioxide 32 mmol/L (22-30); Chloride 100 mmol/L (98-107); Estimated Glomerular Filt Rate > 60; Glucose 109 mg/dL (65-110); Potassium 4.5 mmol/L (3.4-5.0); Sodium 136 mmol/L (137-145)
[2024-07-25 17:32] LABS: Hemoglobin A1C 6.5 % (<5.7)
== END 2024-07-25 14:48 | disposition home or self-care (01) ==
LOC: ANHLAB 14:50
PROVIDERS: PCP Family Medicine; Visit Provider Family Medicine
DX: E11.9 Type 2 diabetes mellitus without complications (principal)
CPT/HCPCS: 36415; 80053; 83036

== ENCOUNTER 2024-08-24 13:11 | Inpatient (IN) | payer MEDICARE, OTHER, SELFPAY ==
[2024-08-24] VITALS (18 sets, daily range): BP systolic 134–160; BP diastolic 63–98; PULSE 87–108; RESP 18–28; TEMP 36.6–36.8; O2SAT 91–96; BMI 22.3
--- NOTE | ~2024-08-24 | XR_ITS ---
EXAMINATION: XR chest 2V DATE: 08/24/2024 13:38 INDICATION: Chest pain. Weakness. TECHNIQUE: Frontal and lateral views of the chest were obtained. COMPARISON: Chest 2 views 05/16/2024 FINDINGS: The lungs are hyperexpanded with lucencies, consistent with emphysema. There are airspace o pacities in the mid and lower lung zones. No pleural effusion or pneumothorax. The heart size is norm al. There is mild chronic anterior wedging of multiple vertebral bodies. IMPRESSION: 1. Airspace opacities in the mid and lower lung zones, consistent with atelectasis/scarring versus pn eumonia. 2. Emphysema. Reviewed, dictated and finalized at location A. RINTENDENT JOB IMPRESSION: 1. Airspace opacities in the mid and lower lung zones, consistent with atelecta sis/scarring versus pneumonia. 2. Emphysema.
--- NOTE | 2024-08-24 13:13 | ECG_ITS ---
Test Date: 2024-08-24 13:27:47 Measurements Intervals [place] Rate: 95 P: 91 VA: 164 QRS: 16 QRSD: 129 T: 78 QT: 392 QTc: 495 Interpretive Statements SINUS RHYTHM WITH FREQUENT VENTRICULAR PREMATURE COMPLEXES POSSIBLE ANTERIOR MYOCARDIAL INFARCTION , OF INDETERMINATE AGE [30 ms Q WAVE IN V3/V4, OR R < 0.2 mV IN V4] ST DEVIATION AND MODERATE T-WAVE ABNORMALITY, CONSIDER LATERAL ISCHEMIA [-0.1+ mV T WAVE IN I/aVL/V5/V6] No previous ECG available for comparison Electronically Signed On 08-24-2024 15:05:23 PILOT PLANT OPERATOR by Petar To M.D.
[2024-08-24 13:39] LABS: Basophils Percent Auto 0.4 % (0.2-1.2); Eosinophils Absolute Auto 0.1 K/mm3 (0-0.3); Eosinophils Percent Auto 0.5 % (0-4.4); Hematocrit 44.2 % (37.0-47.0); Hemoglobin 14.5 g/dL (12.0-15.0); Immature Granulocyte Absolute 0.02 K/mm3 (0.00-0.031); Immature Granulocyte Percent A 0.2 % (0-0.5); Lymphocytes Absolute Auto 1.98 K/mm3 (0.9-3.2); Lymphocytes Percent Auto 20.8 % (18.3-44.2); Mean Corpuscular HGB Conc 32.8 g/dl (32-36); Mean Corpuscular Hemoglobin 29.7 pg (26-34); Mean Corpuscular Volume 90.4 fl (80-100); Mean Platelet Volume 9.8 fl (7.4-10.4); Monocytes Absolute Auto 0.6 K/mm3 (0.1-0.6); Monocytes Percent Auto 6.6 % (2.6-8.5); Neutrophils Absolute Auto 6.8 K/mm3 (1.3-6.7); Neutrophils Percent Auto 71.5 % (45.5-73.1); Platelet Count Result 269 k/mm3 (150-375); Red Blood Count 4.89 M/mm3 (4.2-5.4); Red Cell Distribution Width 13.2 % (11.5-14.5); White Blood Count 9.5 K/mm3 (4.5-10.0)
[2024-08-24 13:47] LABS: Alanine Aminotransferase 32 U/L (6-35); Albumin Level 4.4 g/dL (3.5-5.1); Alkaline Phosphatase 75 U/L (38-126); Anion Gap 6 mmol/L (4-12); Aspartate Amino Transferase 22 U/L (14-36); Bilirubin,Total 0.7 mg/dL (0.2-1.3); Blood Urea Nitrogen 12 mg/dL (7-17); Calcium 9.3 mg/dL (8.4-10.2); Carbon Dioxide 27 mmol/L (22-30); Chloride 103 mmol/L (98-107); Estimated CRCL calculation 52 ml/min; Estimated Glomerular Filt Rate > 60; Glucose 123 mg/dL (65-110); Potassium 4.1 mmol/L (3.4-5.0); Sodium 136 mmol/L (137-145)
--- NOTE | 2024-08-24 15:45 | ED_ITS ---
HPI - Weakness General Chief complaint: Weakness Stated complaint: weakness x1w Time Seen by Provider: 08/24/24 15:45 Source: patient and family Mode of arrival: ambulatory History of Present Illness HPI Narrative: 84 YEARS OLD WHITE FEMALE CAME FROM [facility] WITH HER DAUGHTERS COMPLAINING OF GENERAL WEAKNESS, INTERMITTENT PALPITATION, WORRIES ABOUT HER HEART, ANXIETY. STARTED IN THE LAST FEW DAYS PATIENT IS PLANNING TO MOVE OUT OF [place]DEP[place]ENT LIVING TO LIVE WITH HER DAUGHTER AND THIS IS VERY STRESSFUL FOR HER. HISTORY OF CONGESTIVE HEART FAILURE, BRONCHIECTASIS, HYPERTENSION PATIENT NORMALLY ON 1 L OF OXYGEN BY NASAL CANNULA NEEDED WITH ACTIVITIES. PATIENT MAIN COMPLAINT AT THIS TIME IS FEELING NERVOUS SCHEDULED FOR HEART ECHO ON SUNDAY BY DR. RAYA Related Data Home Medications Medication Instructions Recorded Confirmed umeclidinium 62.5 mcg-vilanterol 1 inh inhalation DAILY 08/24/21 08/24/24 25 mcg/actuation powdr for inhalation (Anoro Ellipta) metoprolol succinate 25 mg 25 mg PO QHS 09/28/23 08/24/24 tablet,extended release 24 hr calcium 500 mg 1 tablet PO DAILY 01/21/24 08/24/24 (carb,gluconate)-magnesium 250 mg (gluc,oxide) tablet (Calcium Magnesium) magnesium 200 mg tablet 200 mg PO DAILY 01/21/24 08/24/24 multivitamin (Daily Multi-Vitamin 1 tablet PO DAILY 01/21/24 08/24/24 tablet) sodium chloride 3 % for 25 ml inhalation Q4-6H PRN 03/27/24 08/24/24 nebulization sob/wheezing albuterol sulfate 2.5 mg/3 mL 2.5 mg continuous nebulization Q6H 07/31/24 08/24/24 (0.083 %) solution for nebulization PRN sob/wheezing losartan 25 mg tablet 25 mg PO DAILY 07/31/24 08/24/24 Alkadophilus 1 cap PO DAILY 08/24/24 08/24/24 cholecalciferol (vitamin D3) 75 75 mcg PO DAILY 08/24/24 08/24/24 mcg (3,000 unit) tablet sertraline 25 mg tablet 25 mg PO HS 08/24/24 08/24/24 Allergies Allergy/AdvReac Type Severity Reaction Status Date / Time dog dander Allergy Unknown Asthma Verified 08/24/24 20:00 levofloxacin AdvReac Intermediate Hallucinati Verified 08/24/24 20:00 ng PMFSH Past Medical History Medical History (Updated 08/25/24 @ 02:37 by Argentina Hernandez DO) Achilles tendinitis of left lower extremity Bronchiectasis Chronic hypoxic respiratory failure, on home oxygen therapy 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 She has 2 daughters who live locally. She had a brief smoking history when she was young. She rarely drinks alcohol in minimal amounts. She denies history of illicit substance use. Code status: Full code Surrogate decision maker: Berenice Chang (daughter) Smoking packs per day: 0.5 Smoking cigarettes per day: 10.0 Years smoked: 10 Smoking pack-years: 5.00 Smoking status: Former smoker Second hand tobacco smoke exposure: Yes Alcohol intake: current Drinks per week: 0 Substance use: never Substance use type: does not use Do You Feel Safe in your Home?: Yes Lack of Transportation: No Lack of Food: Never True Current Housing: I Have Housing Concerned About Future Housing: No Difficulty Paying Gas/Electric Bills: No Difficulty Paying for Meds: No Currently Unemployed: No Education: Associate Degree Difficulty w/ Childcare or Family Care: No Living arrangements: alone Spiritual care concerns: No Exam Narrative: GENERAL APPEARANCE: WELL-DEVELOPED, WELL-NOURISHED, ANXIOUS, NASAL CANNULA ON, 1 L OF OXYGEN SKIN: NORMAL COLOR HEAD: NORMOCEPHALIC, NONTRAUMATIC EYES: CLEAR CONJUNCTIVA ENT: OROPHARYNX NORMAL, EARS NORMAL, NOSE NORMAL NECK: SUPPLE, NONTENDER CHEST AND RESPIRATORY: DIMINUTION OF AIR ENTRY BILATERALLY, FEW SCATTERED WHEEZING AND RHONCHI HEART: REGULAR RATE/RHYTHM ABDOMEN: SOFT, NONTENDER, NO ORGANOMEGALY, QUIET BOWEL SOUNDS VASCULAR: NORMAL PERIPHERAL PULSES, NORMAL CAPILLARY REFILL. MUSCULOSKELETAL: NORMAL RANGE OF MOTION, NONTENDER BACK NEUROLOGIC: ALERT AND ORIENTED ?3, ANALYSIS EVALUATOR IS NORMAL TESTED, NO GROSS MOTOR DEFIC IT Course Vital Signs Vital signs: Vital Signs Temperature 36.6 C 08/24/24 13:16 Pulse Rate 98 08/24/24 13:16 Respiratory Rate 18 08/24/24 13:16 Blood Pressure 146/88 H 08/24/24 13:16 Pulse Oximetry 94 08/24/24 13:16 Oxygen Delivery Nasal Cannula 08/24/24 13:16 Oxygen Flow Rate 1 08/24/24 13:16 Temperature 36.7 C 08/25/24 20:57 Pulse Rate 96 08/25/24 20:57 Respiratory Rate 20 08/25/24 20:57 Blood Pressure 147/81 H 08/25/24 20:57 Pulse Oximetry 93 08/25/24 20:57 Oxygen Delivery Room Air 08/25/24 09:24 Oxygen Flow Rate 1 08/24/24 17:03 Fraction of Inspired Oxygen 21 08/25/24 08:52 MDM - Weakness MDM Narrative Medical decision making narrative: PATIENT CAME WITH DIZZINESS, PALPITATION, ANXIETY AND SLIGHT SHORTNESS OF BREATH VITAL SIGNS ARE STABLE PHYSICAL EXAMINATION SHOWING SCATTERED WHEEZING BILATERALLY AND RESTLESS PATIENT WITH SLIGHT LABORED BREATHING AT REST, OXYGEN BY NASAL CANNULA AT 1 LITER/MINUTE DIFFERENTIAL DIAGNOSIS ANXIETY LIKE SYMPTOMS, CHF, PNEUMONIA, RESPIRATORY VIRAL INFECTION, ELECTROLYTE IMBALANCE, DEHYDRATION BLOOD WORKUP TODAY INCLUDES CBC, CMP, TROPONIN, BLOOD CULTURE, LACTIC ACID, CRP, PT PTT SHOWED INSIGNIFICANT FINDINGS URINALYSIS SHOWED EVIDENCE OF INFECTION CHEST X-RAY SHOWED ATELECTASIS VERSUS PNEUMONIA ABG ON 1 L SHOWING OXYGEN SATURATION OF 91.8 WHICH IS CONSIDERED PATIENT BASELINE. Differential Diagnosis Differential diagnosis: Likely other ( ABOVE) Lab Data 08/24/24 13:30 08/24/24 13:30 Labs: Lab Results 08/24/24 08/24/24 08/24/24 Range/Units 13:30 16:10 16:21 WBC 9.5 (4.5-10.0) K/mm3 RBC 4.89 (4.2-5.4) M/mm3 Hgb 14.5 (12.0-15.0) g/dL Hct 44.2 (37.0-47.0) % MCV 90.4 (80-100) fl MCH 29.7 (26-34) pg MCHC 32.8 (32-36) g/dl RDW 13.2 (11.5-14.5) % Plt Count 269 (150-375) k/mm3 MPV 9.8 (7.4-10.4) fl Immature Gran % (Auto) 0.2 (0-0.5) % Neut % (Auto) 71.5 (45.5-73.1) % Lymph % (Auto) 20.8 (18.3-44.2) % [place] % (Auto) 6.6 (2.6-8.5) % Eos % (Auto) 0.5 (0-4.4) % Baso % (Auto) 0.4 (0.2-1.2) % Lymph # (Auto) 1.98 (0.9-3.2) K/mm3 [place] # (Auto) 0.6 (0.1-0.6) K/mm3 Eos # (Auto) 0.1 (0-0.3) K/mm3 Baso # (Auto) 0.0 (0.0-0.1) K/mm3 Abs Immat Gran (auto) 0.02 (0.00-0.031) K/mm3 Absolute Neuts (auto) 6.8 H (1.3-6.7) K/mm3 Absolute Nucleated RBC 0.000 (0.0-0.012) K/mm3 Nucleated RBC % 0.0 (0.0-0.2) % Sodium 136 L (137-145) mmol/L Potassium 4.1 (3.4-5.0) mmol/L Chloride 103 (98-107) mmol/L Carbon Dioxide 27 (22-30) mmol/L Anion Gap 6 (4-12) mmol/L BUN 12 (7-17) mg/dL Creatinine 0.60 L (0.7-1.0) mg/dL Estim Creat Clear Calc 52 ml/min Estimated GFR > 60 (59 - ) Glucose 123 H (65-110) mg/dL Lactic Acid 1.0 (0.7-2.0) mmol/L Calcium 9.3 (8.4-10.2) mg/dL Total Bilirubin 0.7 (0.2-1.3) mg/dL AST 22 (14-36) U/L ALT 32 (6-35) U/L Alkaline Phosphatase 75 (38-126) U/L Troponin I (0.000-0.034) ng/mL C-Reactive Protein < 0.5 (<1.0) mg/dL NT-Pro-B Natriuret Pep (19.9-100) pg/mL Total Protein 7.0 (6.3-8.2) g/dL Albumin 4.4 (3.5-5.1) g/dL Urine Color Yellow (Yellow) Urine Appearance Clear (Clear) Urine pH 7.5 (5.0-9.0) Ur Specific [place] 1.010 (1.001-1.035) Urine Protein Negative (Negative) mg/dL Urine Glucose (UA) Negative (Negative) mg/dL Urine Ketones Negative (Negative) mg/dL Ur Blood (Man) Negative (Negative) Urine Nitrate Negative (Negative) Urine Bilirubin Negative (Negative) Urine Urobilinogen 0.2 (<2.0) mg/dL Leukocyte Esterase Rfl 3+ H (Negative) ADEEL/UL Urine RBC 0-2 (0-2) /hpf Urine WBC 51-100 H (0-3) /hpf Ur Squamous Epith Cells Occasional (Few) /hpf Urine Bacteria 4+ H /hpf Urine Casts 0-2 Influenza A (RT-PCR) Negative (Negative) Influenza B (RT-PCR) Negative (Negative) RSV (RT-PCR) Negative (Negative) SARS-CoV-2 RNA (RT-PCR) Negative (Negative) 08/24/24 08/24/24 08/24/24 Range/Units 17:06 20:30 23:16 WBC (4.5-10.0) K/mm3 RBC (4.2-5.4) M/mm3 Hgb (12.0-15.0) g/dL Hct (37.0-47.0) % MCV (80-100) fl MCH (26-34) pg MCHC (32-36) g/dl RDW (11.5-14.5) % Plt Count (150-375) k/mm3 MPV (7.4-10.4) fl Immature Gran % (Auto) (0-0.5) % Neut % (Auto) (45.5-73.1) % Lymph % (Auto) (18.3-44.2) % [place] % (Auto) (2.6-8.5) % Eos % (Auto) (0-4.4) % Baso % (Auto) (0.2-1.2) % Lymph # (Auto) (0.9-3.2) K/mm3 [place] # (Auto) (0.1-0.6) K/mm3 Eos # (Auto) (0-0.3) K/mm3 Baso # (Auto) (0.0-0.1) K/mm3 Abs Immat Gran (auto) (0.00-0.031) K/mm3 Absolute Neuts (auto) (1.3-6.7) K/mm3 Absolute Nucleated RBC (0.0-0.012) K/mm3 Nucleated RBC % (0.0-0.2) % Sodium (137-145) mmol/L Potassium (3.4-5.0) mmol/L Chloride (98-107) mmol/L Carbon Dioxide (22-30) mmol/L Anion Gap (4-12) mmol/L BUN (7-17) mg/dL Creatinine (0.7-1.0) mg/dL Estim Creat Clear Calc ml/min Estimated GFR (59 - ) Glucose (65-110) mg/dL Lactic Acid (0.7-2.0) mmol/L Calcium (8.4-10.2) mg/dL Total Bilirubin (0.2-1.3) mg/dL AST (14-36) U/L ALT (6-35) U/L Alkaline Phosphatase (38-126) U/L Troponin I 0.015 0.016 < 0.012 D (0.000-0.034) ng/mL C-Reactive Protein (<1.0) mg/dL NT-Pro-B Natriuret Pep 2320 H (19.9-100) pg/mL Total Protein (6.3-8.2) g/dL Albumin (3.5-5.1) g/dL Urine Color (Yellow) Urine Appearance (Clear) Urine pH (5.0-9.0) Ur Specific [place] (1.001-1.035) Urine Protein (Negative) mg/dL Urine Glucose (UA) (Negative) mg/dL Urine Ketones (Negative) mg/dL Ur Blood (Man) (Negative) Urine Nitrate (Negative) Urine Bilirubin (Negative) Urine Urobilinogen (<2.0) mg/dL Leukocyte Esterase Rfl (Negative) ADEEL/UL Urine RBC (0-2) /hpf Urine WBC (0-3) /hpf Ur Squamous Epith Cells (Few) /hpf Urine Bacteria /hpf Urine Casts Influenza A (RT-PCR) (Negative) Influenza B (RT-PCR) (Negative) RSV (RT-PCR) (Negative) SARS-CoV-2 RNA (RT-PCR) (Negative) ABG Data ABG results: 08/24/24 15:54 Puncture Site Right brachial ABG pH 7.442 ABG pCO2 38.8 ABG pO2 59.4 L ABG PO2/FiO2 Ratio 2.83 ABG HCO3 25.9 ABG O2 Saturation 91.8 L ABG O2 Content 18.8 ABG Base Excess 1.8 A-a Gradient 43.9 Oxyhemoglobin 89.9 L Total Hemoglobin 14.9 O2 Delivery Device Room air O2 Liters/Min Not Reportable FiO2 21 Imaging Data Radiologist's impression: Impressions Chest X-Ray 08/24/24 13:39 IMPRESSION: 1. Airspace opacities in the mid and lower lung zones, consistent with atelectasis/scarring versus pneumonia. 2. Emphysema. ECG Data EKG #1: Attestation: I personally reviewed and interpreted this ECG as follows: ECG completion date: 08/24/24 ECG completion time: 15:47 Interpretation: NORMAL SINUS RHYTHM AT 95 BEATS PER MINUTE, WITH FREQUENT PVCS, ANTERIOR MYOCARDIAL INFARCTION OF INDETERMINATE AGE, T-WAVE ABNORMALITY CONSIDER LATERAL ISCHEMIA, NO PREVIOUS EKG AVAILABLE FOR COMPARISON Critical Care Time Critical Care Time Critical Care Time: No Discharge Plan Discharge Clinical Impression: Anxiety-like symptoms, Pneumonia Urinary tract infection Qualifiers: Urinary tract infection type: acute cystitis Hematuria presence: without hematuria Qualified Code(s): N30.00 - Acute cystitis without hematuria Patient Disposition: Still a Patient Condition: Improved
[2024-08-24 16:29] LABS: Add Urine Microscopic? YES; Appearance Urine Clear (Clear); Bacteria Urine 4+ /hpf; Bilirubin Urine Negative (Negative); Blood Urine Negative (Negative); Color Urine Yellow (Yellow); Glucose Urine UA Negative (Negative); Ketones Urine Negative (Negative); Leukocyte Esterase Ur 3+ LEU/UL (Negative); Nitrate Urine Negative (Negative); Non Pathogenic Casts 0-2; Protein Urine Negative (Negative); RBC Urine 0-2 /hpf (0-2); Squamous Epithelial Cell Urine Occasional /hpf (Few); Urobilinogen Urine 0.2 mg/dL (<2.0); WBC Urine 51-100 /hpf (0-3); pH Urine 7.5 (5.0-9.0)
[2024-08-24 16:38] LABS: CRP < 0.5 mg/dL (<1.0)
[2024-08-24 16:40] LABS: Alveolar/Arterial O2 Gradient 43.9 mmHg; Base Excess ABG 1.8 mEq/l (+/-2.0); Fractional Inspired Oxygen 21 %; HCO3 ABG 25.9 mEq/l (22.0-26.0); Oxygen Content ABG 18.8 %vol (16.0-22.0); Oxygen Saturation ABG 91.8 % (95.0-100.0); Oxyhemoglobin 89.9 % THb (90.0-100.0); PCO2 ABG 38.8 mmHg (35.0-45.0); PO2 ABG 59.4 mmHg (80.0-100.0); PO2 FiO2 Ratio Arterial Blood 2.83 %; Total Hemoglobin 14.9 g/dL (12.0-18.0); pH ABG 7.442 (7.350-7.450)
[2024-08-24 16:42] LABS: Device ROOM AIR; Site Drawn RIGHT BRACHIAL
[2024-08-24] MEDS: IPRATROPIUM 0.5 MG/ALBUTEROL SULFATE 2.5 MG AMPUL.NEB 3 ML INHALATION (17:05)
[2024-08-24 17:16] LABS: Influenza A QL RT-PCR Negative (Negative); Influenza B QL RT-PCR Negative (Negative); RSV RNA, RT-PCR Negative (Negative); SARS-CoV-2 RNA PCR Negative (Negative)
[2024-08-24 17:39] LABS: NT Pro B Type Natriuretic Pept 2320 pg/mL (19.9-100)
[2024-08-24 17:41] LABS: Troponin I 0.015 ng/mL (0.000-0.034)
[2024-08-24] MEDS: methylPREDNISolone SOD SUCC 125 MG VIAL IV PUSH (17:57)
[2024-08-24] MEDS: LORazepam INJ (*CRX) 2 MG/ML VIAL 0.5 MG IV PUSH (17:58)
[2024-08-24] MEDS: AZITHROMYCIN 500 MG/NS 250 ML 500 MG/250 ML BAG 250 MG IVPB (17:59)
--- NOTE | 2024-08-24 20:26 | ECG_ITS ---
Test Date: 2024-08-24 20:34:15 Measurements Intervals [place] Rate: 110 P: 46 ME: 253 QRS: -26 QRSD: 129 T: 108 QT: 362 QTc: 491 Interpretive Statements SINUS TACHYCARDIA WITH FIRST DEGREE AV BLOCK WITH OCCASIONAL ECTOPIC PREMATURE COMPLEXES LEFT ATRIAL ENLARGEMENT [-0.15mV P WAVE IN V1/V2] POSSIBLE ANTERIOR MYOCARDIAL INFARCTION , OF INDETERMINATE AGE [30 ms Q WAVE IN V3/V4, OR R < 0.2 mV IN V4] MODERATE T-WAVE ABNORMALITY, CONSIDER LATERAL ISCHEMIA [-0.1+ mV T WAVE IN I/aVL/V5/V6] Compared to ECG 08/24/2024 13:27:47 Myocardial infarct finding still present T-wave abnormality still present Possible ischemia still present Electronically Signed On 08-25-2024 12:48:33 TELEPRINTER INSTALLER by Ian Castillo M.D.
--- NOTE | 2024-08-24 20:37 | PC.NURSE ---
Admission report to CARMEN Julio.
--- NOTE | 2024-08-24 20:48 | ADMGEN ---
This patient, Nora Tejeda, was admitted to Medical Room 245-. Patient/family oriented to hospital policies and general routines including ID bracelet, bed and alarms, visiting hours, pain management, procedures, bathroom and other care routines, personal items, smoking policy, room service/diet, and visiting hours. Information on how to activate the Rapid Response Team has been discussed. Patient/Family are encouraged to report perceived risks to care and to ask questions if they do not understand what they are told or what they should do.
[2024-08-24 21:21] LABS: Troponin I 0.016 ng/mL (0.000-0.034)
--- NOTE | 2024-08-24 21:21 | PC.NURSE ---
[address] Hernandez that patient is anxious about receiving her HS medications. Dr. Hernandez will addresss medications when she has time available.
[2024-08-24] MEDS: SERTRALINE HCL 25 MG TABLET PO (22:52)
[2024-08-24] MEDS: METOPROLOL SUCCINATE EXT REL 25 MG TABCR PO (22:52)
[2024-08-24] MEDS: ALPRAZolam (*CRX) 0.25 MG TABLET PO (22:52)
[2024-08-25] VITALS (8 sets, daily range): BP systolic 134–148; BP diastolic 74–81; PULSE 56–96; RESP 18–20; TEMP 36.1–36.9; O2SAT 93–97
[2024-08-25 01:11] LABS: Troponin I < 0.012 ng/mL (0.000-0.034)
--- NOTE | 2024-08-25 02:08 | P.HP_ITS ---
H&P: HPI History of Present Illness Date/Time: 08/25/24 02:08 Chief Complaint: Progressive weakness Review of Systems Review of Systems: 12 systems were reviewed with pertinent positives and negatives per HPI. Except as documented in the HPI, all other systems were reviewed and are negative. 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 Plaza Osteoporosis Surgical History Surgical History (Updated 08/25/24 @ 02:28 by Argentina Hernandez DO) History of cardiac catheterization (2019) Normal coronary arteries History of lumpectomy of left breast (01/2024) History of sentinel lymph node dissection (01/2024) Family History Family History Sibling Family history of tuberculosis Mother Diabetes mellitus Social History Social History (Updated 08/25/24 @ 02:29 by Argentina Hernandez DO) Social History: Code status: Surrogate decision maker: Berenice Chang (daughter) Smoking packs per day: 0.5 Smoking cigarettes per day: 10.0 Years smoked: 10 Smoking pack-years: 5.00 Smoking status: Former smoker Second hand tobacco smoke exposure: Yes Alcohol intake: current Drinks per week: 0 Substance use: never Substance use type: does not use Do You Feel Safe in your Home?: Yes Lack of Transportation: No Lack of Food: Never True Current Housing: I Have Housing Concerned About Future Housing: No Difficulty Paying Gas/Electric Bills: No Difficulty Paying for Meds: No Currently Unemployed: No Education: Associate Degree Difficulty w/ Childcare or Family Care: No Living arrangements: alone Spiritual care concerns: No Meds Home Medications and Allergies Home Medications Medication Instructions Recorded Confirmed Type umeclidinium 62.5 mcg-vilanterol 1 inh inhalation DAILY 08/24/21 08/24/24 History 25 mcg/actuation powdr for inhalation (Anoro Ellipta) albuterol sulfate 90 mcg/actuation 2 inh inhalation Q4H PRN shortness 03/06/22 08/24/24 Rx aerosol inhaler (Ventolin HFA) of breath or wheezing #6.7 grams metoprolol succinate 25 mg 25 mg PO QHS 09/28/23 08/24/24 History tablet,extended release 24 hr calcium 500 mg 1 tablet PO DAILY 01/21/24 08/24/24 History (carb,gluconate)-magnesium 250 mg (gluc,oxide) tablet (Calcium Magnesium) magnesium 200 mg tablet 200 mg PO DAILY 01/21/24 08/24/24 History multivitamin (Daily Multi-Vitamin 1 tablet PO DAILY 01/21/24 08/24/24 History tablet) sodium chloride 3 % for 25 ml inhalation Q4-6H PRN 03/27/24 08/24/24 History nebulization sob/wheezing albuterol sulfate 2.5 mg/3 mL 2.5 mg continuous nebulization Q6H 07/31/24 08/24/24 History (0.083 %) solution for nebulization PRN sob/wheezing alprazolam 0.25 mg tablet 0.25 mg PO TID PRN anxiety #90 tabs 07/31/24 08/24/24 Rx losartan 25 mg tablet 25 mg PO DAILY 07/31/24 08/24/24 History ondansetron HCl 4 mg tablet 4 mg PO Q6H PRN nausea and 08/13/24 08/24/24 Rx vomiting #30 tabs Alkadophilus 1 cap PO DAILY 08/24/24 08/24/24 History cholecalciferol (vitamin D3) 75 75 mcg PO DAILY 08/24/24 08/24/24 History mcg (3,000 unit) tablet sertraline 25 mg tablet 25 mg PO HS 08/24/24 08/24/24 History Allergies Allergy/AdvReac Type Severity Reaction Status Date / Time dog dander Allergy Unknown Asthma Verified 08/24/24 20:00 levofloxacin AdvReac Intermediate Hallucinati Verified 08/24/24 20:00 ng Vital Signs Vital Signs - 24 hr 08/24/24 13:16 08/24/24 15:51 08/24/24 16:11 Temperature 97.8 F Pulse Rate 98 102 H Respiratory Rate 18 18 Blood Pressure 146/88 H 155/85 H Pulse Oximetry 94 95 92 Oxygen Delivery Nasal Cannula Room Air Oxygen Flow Rate 1 08/24/24 16:34 08/24/24 17:03 08/24/24 17:04 Temperature Pulse Rate 93 94 Respiratory Rate 19 Blood Pressure 136/76 Pulse Oximetry 92 95 Oxygen Delivery Nasal Cannula Oxygen Flow Rate 1 08/24/24 15:51 08/24/24 16:35 08/24/24 17:01 Temperature Pulse Rate 108 H 97 87 Respiratory Rate 20 22 H 19 Blood Pressure 155/85 H 136/76 134/74 Pulse Oximetry 95 91 96 Oxygen Delivery Oxygen Flow Rate 08/24/24 17:05 08/24/24 17:13 08/24/24 17:22 Temperature Pulse Rate 102 H 98 95 Respiratory Rate 20 20 25 H Blood Pressure 139/86 Pulse Oximetry 94 Oxygen Delivery Oxygen Flow Rate 08/24/24 17:41 08/24/24 19:01 08/24/24 19:21 Temperature Pulse Rate 94 106 H 106 H Respiratory Rate 25 H 22 H 24 H Blood Pressure 160/98 H 150/89 H 148/95 H Pulse Oximetry 95 94 95 Oxygen Delivery Oxygen Flow Rate 08/24/24 19:41 08/24/24 20:21 08/24/24 21:03 Temperature 98.3 F Pulse Rate 103 H 102 H 107 H Respiratory Rate 28 H 23 H 20 Blood Pressure 138/63 154/84 H 153/65 H Pulse Oximetry 93 92 92 Oxygen Delivery Oxygen Flow Rate 08/24/24 21:18 08/24/24 22:52 Temperature Pulse Rate 107 H Respiratory Rate Blood Pressure Pulse Oximetry Oxygen Delivery Room Air Oxygen Flow Rate Exam Narrative: Weight 59 kg BMI 22.3 H&P: Results Labs Labs: Laboratory Tests 08/24/24 13:30 08/24/24 13:30 08/24/24 08/24/24 08/24/24 13:30 15:54 16:10 WBC 9.5 RBC 4.89 Hgb 14.5 Hct 44.2 MCV 90.4 MCH 29.7 MCHC 32.8 RDW 13.2 Plt Count 269 MPV 9.8 Immature Gran % (Auto) 0.2 Neut % (Auto) 71.5 Lymph % (Auto) 20.8 [place] % (Auto) 6.6 Eos % (Auto) 0.5 Baso % (Auto) 0.4 Lymph # (Auto) 1.98 [place] # (Auto) 0.6 Eos # (Auto) 0.1 Baso # (Auto) 0.0 Abs Immat Gran (auto) 0.02 Absolute Neuts (auto) 6.8 H Absolute Nucleated RBC 0.000 Nucleated RBC % 0.0 Puncture Site Right brachial ABG pH 7.442 ABG pCO2 38.8 ABG pO2 59.4 L ABG PO2/FiO2 Ratio 2.83 ABG HCO3 25.9 ABG O2 Saturation 91.8 L ABG O2 Content 18.8 ABG Base Excess 1.8 A-a Gradient 43.9 Oxyhemoglobin 89.9 L Total Hemoglobin 14.9 O2 Delivery Device Room air O2 Liters/Min Not Reportable FiO2 21 Sodium 136 L Potassium 4.1 Chloride 103 Carbon Dioxide 27 Anion Gap 6 BUN 12 Creatinine 0.60 L Estim Creat Clear Calc 52 Estimated GFR > 60 Glucose 123 H Lactic Acid 1.0 Calcium 9.3 Total Bilirubin 0.7 AST 22 ALT 32 Alkaline Phosphatase 75 Troponin I C-Reactive Protein < 0.5 NT-Pro-B Natriuret Pep Total Protein 7.0 Albumin 4.4 Urine Color Yellow Urine Appearance Clear Urine pH 7.5 Ur Specific [place] 1.010 Urine Protein Negative Urine Glucose (UA) Negative Urine Ketones Negative Ur Blood (Man) Negative Urine Nitrate Negative Urine Bilirubin Negative Urine Urobilinogen 0.2 Leukocyte Esterase Rfl 3+ H Urine RBC 0-2 Urine WBC 51-100 H Ur Squamous Epith Cells Occasional Urine Bacteria 4+ H Urine Casts 0-2 Influenza A (RT-PCR) Influenza B (RT-PCR) RSV (RT-PCR) SARS-CoV-2 RNA (RT-PCR) 08/24/24 08/24/24 08/24/24 16:21 17:06 20:30 WBC RBC Hgb Hct MCV MCH MCHC RDW Plt Count MPV Immature Gran % (Auto) Neut % (Auto) Lymph % (Auto) [place] % (Auto) Eos % (Auto) Baso % (Auto) Lymph # (Auto) [place] # (Auto) Eos # (Auto) Baso # (Auto) Abs Immat Gran (auto) Absolute Neuts (auto) Absolute Nucleated RBC Nucleated RBC % Puncture Site ABG pH ABG pCO2 ABG pO2 ABG PO2/FiO2 Ratio ABG HCO3 ABG O2 Saturation ABG O2 Content ABG Base Excess A-a Gradient Oxyhemoglobin Total Hemoglobin O2 Delivery Device O2 Liters/Min FiO2 Sodium Potassium Chloride Carbon Dioxide Anion Gap BUN Creatinine Estim Creat Clear Calc Estimated GFR Glucose Lactic Acid Calcium Total Bilirubin AST ALT Alkaline Phosphatase Troponin I 0.015 0.016 C-Reactive Protein NT-Pro-B Natriuret Pep 2320 H Total Protein Albumin Urine Color Urine Appearance Urine pH Ur Specific [place] Urine Protein Urine Glucose (UA) Urine Ketones Ur Blood (Man) Urine Nitrate Urine Bilirubin Urine Urobilinogen Leukocyte Esterase Rfl Urine RBC Urine WBC Ur Squamous Epith Cells Urine Bacteria Urine Casts Influenza A (RT-PCR) Negative Influenza B (RT-PCR) Negative RSV (RT-PCR) Negative SARS-CoV-2 RNA (RT-PCR) Negative 08/24/24 23:16 WBC RBC Hgb Hct MCV MCH MCHC RDW Plt Count MPV Immature Gran % (Auto) Neut % (Auto) Lymph % (Auto) [place] % (Auto) Eos % (Auto) Baso % (Auto) Lymph # (Auto) [place] # (Auto) Eos # (Auto) Baso # (Auto) Abs Immat Gran (auto) Absolute Neuts (auto) Absolute Nucleated RBC Nucleated RBC % Puncture Site ABG pH ABG pCO2 ABG pO2 ABG PO2/FiO2 Ratio ABG HCO3 ABG O2 Saturation ABG O2 Content ABG Base Excess A-a Gradient Oxyhemoglobin Total Hemoglobin O2 Delivery Device O2 Liters/Min FiO2 Sodium Potassium Chloride Carbon Dioxide Anion Gap BUN Creatinine Estim Creat Clear Calc Estimated GFR Glucose Lactic Acid Calcium Total Bilirubin AST ALT Alkaline Phosphatase Troponin I < 0.012 D C-Reactive Protein NT-Pro-B Natriuret Pep Total Protein Albumin Urine Color Urine Appearance Urine pH Ur Specific [place] Urine Protein Urine Glucose (UA) Urine Ketones Ur Blood (Man) Urine Nitrate Urine Bilirubin Urine Urobilinogen Leukocyte Esterase Rfl Urine RBC Urine WBC Ur Squamous Epith Cells Urine Bacteria Urine Casts Influenza A (RT-PCR) Influenza B (RT-PCR) RSV (RT-PCR) SARS-CoV-2 RNA (RT-PCR) Impressions Chest X-Ray 08/24/24 13:39 (personally reviewed and interpreted. when compared to prior imaging from April 2020 imaging is similar and in my opinion unchanged the. Radiologic interpretation below) IMPRESSION: 1. Airspace opacities in the mid and lower lung zones, consistent with atelecta sis/scarring versus pneumonia. 2. Emphysema. EKG: Personally reviewed and interpreted. Initial EKG demonstrated rate 95 with frequent premature ventricular complexes, anterior WA indeterminate age ST deviation moderate T-wave abnormality for lateral QTC 495 Repeat EKG criteria for LVH in lateral leads demonstrated sinus tachycardia rate 110 QTC still prolonged at 491 left atrial enlargement anterior lateral ischemic changes as discussed above with first-degree AV block now present cardiology interpretation pending. Assessment and Plan Assessment and plan (1) Generalized weakness: Code(s): R53.1 - Weakness Status: Acute (2) Urinary tract infection: Qualifiers: Hematuria presence: without hematuria Urinary tract infection type: acute cystitis Qualified Code(s): N30.00 - Acute cystitis without hematuria Code(s): N39.0 - Urinary tract infection, site not specified Status: Acute (3) CHF exacerbation: Code(s): I50.9 - Heart failure, unspecified Status: Acute (4) Chronic hypoxic respiratory failure, on home oxygen therapy: Code(s): J96.11 - Chronic respiratory failure with hypoxia; Z99.81 - Dependence on supplemental oxygen Status: Acute (5) Anxiety: Code(s): F41.9 - Anxiety disorder, unspecified Status: Acute (6) Essential hypertension: Code(s): I10 - Essential (primary) hypertension Status: Acute Plan Patient has generalized weakness likely multifactorial due to recent breast cancer diagnosis and possible UTI. Patient's UA is suggestive of UTI. Patient has been placed on empiric antibiotic therapy with Rocephin. Chest x-ray was read as possible atelectasis versus pneumonia my review of the chest x-ray is largely unchanged from prior in patient does have history of chronic bronchiectasis and chronic interstitial lung disease/COPD with chronic home O2. Patient has not had increased home O2 requirements does not have a leukocytosis or concerning respiratory exam. She also has QT prolongation on her EKG. Since I do not feel patient has pneumonia and given QT prolongation and other factors I have stopped azithromycin. However patient's BMP is elevated compared to prior will obtain echocardiogram to evaluate patient's current cardiac structure and function. Patient does remain tachycardic. Will monitor on telemetry. Will monitor strict I&O's and daily weights. Continue supplemental oxygen as needed. Will continue patient's home Entresto and beta-lauren. Will also continue home inhalers and will add p.r.n. DuoNeb. Will repeat CBC and electrolyte panel in a.m.. Patient does have a long history of anxiety and family states that she tends to be anxious person her home alprazolam has been ordered. Patient has been admitted as observation status. Quality VTE Prophylaxis VTE prophylaxis: pharmacologic ordered (Lovenox 40 mg subQ daily.) Hospitalist MIPS Advance Care Plan I have confirmed that the patient's Advanced Care Plan is present, code status is documented, or surrogate decision maker is listed in patient medical record.: Yes Medication Reconciliation I have utilized all available resources to obtain, update and review the patients current medications (includes all prescriptions, OTC, herbals, cannabis, and nutritional supplements).: Yes
--- NOTE | 2024-08-25 06:53 | P.PNIM_ITS ---
Progress Note: A&P Assessment and Plan (1) Generalized weakness: Code(s): R53.1 - Weakness Status: Acute (2) Urinary tract infection: Qualifiers: Hematuria presence: without hematuria Urinary tract infection type: acute cystitis Qualified Code(s): N30.00 - Acute cystitis without hematuria Code(s): N39.0 - Urinary tract infection, site not specified Status: Acute (3) CHF exacerbation: Code(s): I50.9 - Heart failure, unspecified Status: Acute (4) Chronic hypoxic respiratory failure, on home oxygen therapy: Code(s): J96.11 - Chronic respiratory failure with hypoxia; Z99.81 - Dependence on supplemental oxygen Status: Acute (5) Anxiety: Code(s): F41.9 - Anxiety disorder, unspecified Status: Acute (6) Essential hypertension: Code(s): I10 - Essential (primary) hypertension Status: Acute Plan generalized weakness likely multifactorial due to recent breast cancer diagnosis and possible UTI. Patient's UA is suggestive of UTI. Patient has been placed on empiric antibiotic therapy with Rocephin. Chest x-ray was read as possible atelectasis versus pneumonia history of chronic bronchiectasis and chronic interstitial lung disease/COPD with chronic home O2. Patient has not had increased home O2 requirements does not have a leukocytosis or concerning respiratory exam. She also has QT prolongation on her EKG. stopped azithromycin. Suspecting diastolic heart failure and fluid overload Pending Echocardiogram to evaluate patient's current cardiac structure and function. Patient does remain tachycardic. Will monitor on telemetry. monitor strict I&O's and daily weights. X-ray also suggest possible edema bilateral base Start Lasix 40 IV push once Chronic respiratory failure Continue supplemental oxygen as needed. Will continue patient's home Entresto and beta-lauren. Will also continue home inhalers and will add p.r.n. DuoNeb. Will repeat CBC and electrolyte panel in a.m.. Patient does have a long history of anxiety and family states that she tends to be anxious person her home alprazolam has been ordered. Patient has been admitted as observation status. Subjective Date/time seen: 08/25/24 06:54 Interval history: Patient still has general weakness in the morning, patient is able to ambulate with assistance, dyspnea is improving. Patient is afebrile overnight, blood pressure stable. Labs reviewed, image reviewed, pending blood culture urine culture Exam Narrative: GENERAL: Pleasant, in no acute distress. Well-nourished. - EYES: EOMI. Anicteric. - HENT: Moist mucous membranes. - LUNGS: Coarse breath sound bilateral base - CARDIOVASCULAR: Regular rate and rhyth m. No murmur. No JVD. - ABDOMEN: Soft, non-tender and non-dist ended. No palpable masses. - EXTREMITIES: No edema. Peripheral puls es 2+. Non-tender. - NEUROLOGIC: No focal neurological defi cits. CN II-XII grossly intact. General weakness - PSYCHIATRIC: Awake, Alert and oriented x 3. Appropriate mood and affect. - SKIN: No rashes or lesions. Warm. - LYMPH: No cervical lymphadenopathy. Objective Data Vital Signs Vital Signs: Vital Signs - 24 hr 08/24/24 13:16 08/24/24 15:51 08/24/24 16:11 Temperature 97.8 F Pulse Rate 98 102 H Respiratory Rate 18 18 Blood Pressure 146/88 H 155/85 H Pulse Oximetry 94 95 92 Oxygen Delivery Nasal Cannula Room Air Oxygen Flow Rate 1 08/24/24 16:34 08/24/24 17:03 08/24/24 17:04 Temperature Pulse Rate 93 94 Respiratory Rate 19 Blood Pressure 136/76 Pulse Oximetry 92 95 Oxygen Delivery Nasal Cannula Oxygen Flow Rate 1 08/24/24 15:51 08/24/24 16:35 08/24/24 17:01 Temperature Pulse Rate 108 H 97 87 Respiratory Rate 20 22 H 19 Blood Pressure 155/85 H 136/76 134/74 Pulse Oximetry 95 91 96 Oxygen Delivery Oxygen Flow Rate 08/24/24 17:05 08/24/24 17:13 08/24/24 17:22 Temperature Pulse Rate 102 H 98 95 Respiratory Rate 20 20 25 H Blood Pressure 139/86 Pulse Oximetry 94 Oxygen Delivery Oxygen Flow Rate 08/24/24 17:41 08/24/24 19:01 08/24/24 19:21 Temperature Pulse Rate 94 106 H 106 H Respiratory Rate 25 H 22 H 24 H Blood Pressure 160/98 H 150/89 H 148/95 H Pulse Oximetry 95 94 95 Oxygen Delivery Oxygen Flow Rate 08/24/24 19:41 08/24/24 20:21 08/24/24 21:03 Temperature 98.3 F Pulse Rate 103 H 102 H 107 H Respiratory Rate 28 H 23 H 20 Blood Pressure 138/63 154/84 H 153/65 H Pulse Oximetry 93 92 92 Oxygen Delivery Oxygen Flow Rate 08/24/24 21:18 08/24/24 22:52 08/25/24 06:00 Temperature 98.3 F Pulse Rate 107 H 56 L Respiratory Rate 20 Blood Pressure 146/75 H Pulse Oximetry 94 Oxygen Delivery Room Air Oxygen Flow Rate Intake/Output Intake/Output: Intake & Output 08/22/24 08/23/24 08/24/24 08/25/24 23:59 23:59 23:59 23:59 Intake Total 300 500 Balance 300 500 Meds/Results Medications: Active Medications Generic Name Dose Route Start Last Admin Trade Name Freq PRN Reason Stop Dose Admin Acetaminophen 650 mg 08/24/24 18:48 Acetaminophen 325 Mg Tablet PO Q4H PRN Mild Pain (1-3) or Fever Albuterol/Ipratropium 3 ml 08/25/24 02:41 Ipratropium 0.5 Mg/Albuterol Sulfate 2.5 Mg Ampul.Neb 3 Ml INHALATION Q6HRT PRN Shortness of breath/wheezing Alprazolam 0.25 mg 08/24/24 22:19 08/24/24 22:52 Alprazolam (*Crx) 0.25 Mg Tablet PO 0.25 mg TID PRN Administration anxiety Enoxaparin Sodium 40 mg 08/25/24 09:00 Enoxaparin 40 Mg/0.4 Ml Syringe SUB-Q DAILY [facility] Ceftriaxone Sodium 1 gm in 50 mls @ 100 mls/hr 08/25/24 14:00 Rocephin 1 Gm/Ns 50 Ml IVPB Q24H [facility] Lactobacillus Acidophilus 1 tablet 08/25/24 09:00 Acidophilus/Bulgaricus Chewable Tablet BY MOUTH DAILY [facility] Losartan Potassium 25 mg 08/25/24 09:00 Losartan Potassium 25 Mg Tablet PO DAILY ANA Magnesium Oxide 200 mg 08/25/24 09:00 Magnesium Oxide 200 Mg Tablet PO DAILY ANA Metoprolol Succinate 25 mg 08/24/24 22:30 08/24/24 22:52 Metoprolol Succinate Ext Rel 25 Mg Tabcr PO 25 mg QHS ANA Administration Multivitamins Therapeutic 1 tablet 08/25/24 09:00 Multivitamins Therapeutic Tab (*Bkc) PO DAILY [facility] Perflutren Lipid Microsphere 0 ml 08/25/24 02:10 Perflutren Lipid Microspheres 1.5 Ml Vial Diluted To 10 Ml Total Volume IV PUSH 08/28/24 02:10 ONCE PRN adequate visualization Protocol Sertraline HCl 25 mg 08/24/24 22:30 08/24/24 22:52 Sertraline Hcl 25 Mg Tablet PO 25 mg HS ANA Administration Umeclidinium/Vilanterol 1 puff 08/25/24 08:00 Umeclidinium/Vilanterol 62.5-25 Mcg Ellipta INHALATION DAILYRT ANA Vitamin D 3,000 units 08/25/24 09:00 Cholecalciferol 1,000 Units Tablet PO DAILY ANA Radiology Results: ITS Impressions Chest X-Ray 08/24/24 13:39 IMPRESSION: 1. Airspace opacities in the mid and lower lung zones, consistent with atelectasis/scarring versus pneumonia. 2. Emphysema. Labs Labs: Laboratory Results - last 24 hr 08/24/24 08/24/24 08/24/24 13:30 15:54 16:10 WBC 9.5 RBC 4.89 Hgb 14.5 Hct 44.2 MCV 90.4 MCH 29.7 MCHC 32.8 RDW 13.2 Plt Count 269 MPV 9.8 Immature Gran % (Auto) 0.2 Neut % (Auto) 71.5 Lymph % (Auto) 20.8 [place] % (Auto) 6.6 Eos % (Auto) 0.5 Baso % (Auto) 0.4 Lymph # (Auto) 1.98 [place] # (Auto) 0.6 Eos # (Auto) 0.1 Baso # (Auto) 0.0 Abs Immat Gran (auto) 0.02 Absolute Neuts (auto) 6.8 H Absolute Nucleated RBC 0.000 Nucleated RBC % 0.0 Puncture Site Right brachial ABG pH 7.442 ABG pCO2 38.8 ABG pO2 59.4 L ABG PO2/FiO2 Ratio 2.83 ABG HCO3 25.9 ABG O2 Saturation 91.8 L ABG O2 Content 18.8 ABG Base Excess 1.8 A-a Gradient 43.9 Oxyhemoglobin 89.9 L Total Hemoglobin 14.9 O2 Delivery Device Room air O2 Liters/Min Not Reportable FiO2 21 Sodium 136 L Potassium 4.1 Chloride 103 Carbon Dioxide 27 Anion Gap 6 BUN 12 Creatinine 0.60 L Estim Creat Clear Calc 52 Estimated GFR > 60 Glucose 123 H Lactic Acid 1.0 Calcium 9.3 Total Bilirubin 0.7 AST 22 ALT 32 Alkaline Phosphatase 75 Troponin I C-Reactive Protein < 0.5 NT-Pro-B Natriuret Pep Total Protein 7.0 Albumin 4.4 Urine Color Yellow Urine Appearance Clear Urine pH 7.5 Ur Specific [place] 1.010 Urine Protein Negative Urine Glucose (UA) Negative Urine Ketones Negative Ur Blood (Man) Negative Urine Nitrate Negative Urine Bilirubin Negative Urine Urobilinogen 0.2 Leukocyte Esterase Rfl 3+ H Urine RBC 0-2 Urine WBC 51-100 H Ur Squamous Epith Cells Occasional Urine Bacteria 4+ H Urine Casts 0-2 Influenza A (RT-PCR) Influenza B (RT-PCR) RSV (RT-PCR) SARS-CoV-2 RNA (RT-PCR) 08/24/24 08/24/24 08/24/24 16:21 17:06 20:30 WBC RBC Hgb Hct MCV MCH MCHC RDW Plt Count MPV Immature Gran % (Auto) Neut % (Auto) Lymph % (Auto) [place] % (Auto) Eos % (Auto) Baso % (Auto) Lymph # (Auto) [place] # (Auto) Eos # (Auto) Baso # (Auto) Abs Immat Gran (auto) Absolute Neuts (auto) Absolute Nucleated RBC Nucleated RBC % Puncture Site ABG pH ABG pCO2 ABG pO2 ABG PO2/FiO2 Ratio ABG HCO3 ABG O2 Saturation ABG O2 Content ABG Base Excess A-a Gradient Oxyhemoglobin Total Hemoglobin O2 Delivery Device O2 Liters/Min FiO2 Sodium Potassium Chloride Carbon Dioxide Anion Gap BUN Creatinine Estim Creat Clear Calc Estimated GFR Glucose Lactic Acid Calcium Total Bilirubin AST ALT Alkaline Phosphatase Troponin I 0.015 0.016 C-Reactive Protein NT-Pro-B Natriuret Pep 2320 H Total Protein Albumin Urine Color Urine Appearance Urine pH Ur Specific [place] Urine Protein Urine Glucose (UA) Urine Ketones Ur Blood (Man) Urine Nitrate Urine Bilirubin Urine Urobilinogen Leukocyte Esterase Rfl Urine RBC Urine WBC Ur Squamous Epith Cells Urine Bacteria Urine Casts Influenza A (RT-PCR) Negative Influenza B (RT-PCR) Negative RSV (RT-PCR) Negative SARS-CoV-2 RNA (RT-PCR) Negative 08/24/24 23:16 WBC RBC Hgb Hct MCV MCH MCHC RDW Plt Count MPV Immature Gran % (Auto) Neut % (Auto) Lymph % (Auto) [place] % (Auto) Eos % (Auto) Baso % (Auto) Lymph # (Auto) [place] # (Auto) Eos # (Auto) Baso # (Auto) Abs Immat Gran (auto) Absolute Neuts (auto) Absolute Nucleated RBC Nucleated RBC % Puncture Site ABG pH ABG pCO2 ABG pO2 ABG PO2/FiO2 Ratio ABG HCO3 ABG O2 Saturation ABG O2 Content ABG Base Excess A-a Gradient Oxyhemoglobin Total Hemoglobin O2 Delivery Device O2 Liters/Min FiO2 Sodium Potassium Chloride Carbon Dioxide Anion Gap BUN Creatinine Estim Creat Clear Calc Estimated GFR Glucose Lactic Acid Calcium Total Bilirubin AST ALT Alkaline Phosphatase Troponin I < 0.012 D C-Reactive Protein NT-Pro-B Natriuret Pep Total Protein Albumin Urine Color Urine Appearance Urine pH Ur Specific [place] Urine Protein Urine Glucose (UA) Urine Ketones Ur Blood (Man) Urine Nitrate Urine Bilirubin Urine Urobilinogen Leukocyte Esterase Rfl Urine RBC Urine WBC Ur Squamous Epith Cells Urine Bacteria Urine Casts Influenza A (RT-PCR) Influenza B (RT-PCR) RSV (RT-PCR) SARS-CoV-2 RNA (RT-PCR)
--- NOTE | 2024-08-25 08:55 | PM.SD2 ---
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 She reports that every morning to been a more weak. At the day goes on that she feels more her usual self. This is been going on for months and has not really changed. She blames a part of this on her mood because her 2 years ago. She was living with her daughter and her son-in-law but due to various reasons this was not an ideal situation. She decided to moved to assisted living but then was not happy there because she is by her own description active and vigorous in most of the residence at the assisted living artery and a declining condition. She felt that this was adversely affecting her mood. So now she is in the process of moving in with her other daughter. She does have bronchiectasis and uses vest therapy daily. She also uses nebulizers. She usually uses 1 L of oxygen with activity. She does not wear oxygen at night. She does not think that she snores. She is adamant that her fatigue during the day is not not due to low oxygen levels at night because she checks her oxygen when she wakes up and her oxygen saturations are 95%. She has never had a sleep study. She has already got a echocardiogram scheduled outpatient on Sunday with her security specialist. In the ER chest x-ray was performed which demonstrated airspace opacities in the mid and lower lung zones consistent with atelectasis scarring versus pneumonia. The patient has not been having any increased cough, fevers chills or shortness of breath that would suggest pneumonia. She also has a normal white count and negative viral respiratory panel. I actually reviewed the chest x-ray compared to prior imaging and I feel that the imaging is similar to the patient's previous imaging. She had a UA performed in the ER which demonstrate 3+ esterase 510 wbc's and floor +bacteria. She has not been having urinary symptoms at all. She does take cranberry supplements to help reduce chances of UTI. She has only had 3 or 4 UTIs in her lifetime. 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 She has 2 daughters who live locally. She had a brief smoking history when she was young. She rarely drinks alcohol in minimal amounts. She denies history of illicit substance use. Code status: Full code Surrogate decision maker: Berenice Chang (daughter) Smoking packs per day: 0.5 Smoking cigarettes per day: 10.0 Years smoked: 10 Smoking pack-years: 5.00 Smoking status: Former smoker Second hand tobacco smoke exposure: Yes Alcohol intake: current Drinks per week: 0 Substance use: never Substance use type: does not use Do You Feel Safe in your Home?: Yes Lack of Transportation: No Lack of Food: Never True Current Housing: I Have Housing Concerned About Future Housing: No Difficulty Paying Gas/Electric Bills: No Difficulty Paying for Meds: No Currently Unemployed: No Education: Associate Degree Difficulty w/ Childcare or Family Care: No Living arrangements: alone Spiritual care concerns: No Same Day Admit/Disch: Med Pre-admit Medications Home Medications Medication Instructions Recorded Confirmed Type umeclidinium 62.5 mcg-vilanterol 1 inh inhalation DAILY 08/24/21 08/24/24 History 25 mcg/actuation powdr for inhalation (Anoro Ellipta) albuterol sulfate 90 mcg/actuation 2 inh inhalation Q4H PRN shortness 03/06/22 08/24/24 Rx aerosol inhaler (Ventolin HFA) of breath or wheezing #6.7 grams metoprolol succinate 25 mg 25 mg PO QHS 09/28/23 08/24/24 History tablet,extended release 24 hr calcium 500 mg 1 tablet PO DAILY 01/21/24 08/24/24 History (carb,gluconate)-magnesium 250 mg (gluc,oxide) tablet (Calcium Magnesium) magnesium 200 mg tablet 200 mg PO DAILY 01/21/24 08/24/24 History multivitamin (Daily Multi-Vitamin 1 tablet PO DAILY 01/21/24 08/24/24 History tablet) sodium chloride 3 % for 25 ml inhalation Q4-6H PRN 03/27/24 08/24/24 History nebulization sob/wheezing albuterol sulfate 2.5 mg/3 mL 2.5 mg continuous nebulization Q6H 07/31/24 08/24/24 History (0.083 %) solution for nebulization PRN sob/wheezing alprazolam 0.25 mg tablet 0.25 mg PO TID PRN anxiety #90 tabs 07/31/24 08/24/24 Rx losartan 25 mg tablet 25 mg PO DAILY 07/31/24 08/24/24 History ondansetron HCl 4 mg tablet 4 mg PO Q6H PRN nausea and 08/13/24 08/24/24 Rx vomiting #30 tabs Alkadophilus 1 cap PO DAILY 08/24/24 08/24/24 History cholecalciferol (vitamin D3) 75 75 mcg PO DAILY 08/24/24 08/24/24 History mcg (3,000 unit) tablet sertraline 25 mg tablet 25 mg PO HS 08/24/24 08/24/24 History Review of Systems Review of Systems 12 systems were reviewed with pertinent positives and negatives per HPI. Except as documented in the HPI, all other systems were reviewed and are negative. Exam Narrative: Weight 59 kg BMI 22.3 Const: Other: No acute distress, well-developed well-nourished, appears younger than stated age HENMT: Other: Mucous membranes are moist, no oral pharyngeal erythema, mild posterior oral pharyngeal crowding Eyes: Other: Pupils are equal and reactive, lens implants noted bilaterally Neck: Other: No JVD, no lymphadenopathy Resp: Other: Clear to auscultation bilaterally, no increased work of breathing Cardio: Other: Regular rate, regular rhythm, 2+ bilateral radial pedal pulses, no JVD GI: Other: Soft, nontender, nondistended, positive bowel sounds Skin: Other: Mild pallor, non jaundice Neuro: Other: Alert orient x4, speech is clear, no facial asymmetry, no localizing neurologic deficits noted, gait not evaluated Extrem: Other: 5/5 chronic condition nurse strength bilateral upper extremities 5/5 strength on straight leg raise plantar flexion bilateral, no clubbing, cyanosis or edema, mild age-related arthritic changes noted Psych: Other: Appropriate mood affect although seems to have some anhedonia when discussing recent social changes, judgment and insight intact DS: Data Data Completed and Pending Labs on day of discharge: Labs from last 24 hours 08/24/24 08/24/24 08/24/24 23:16 20:30 17:06 WBC RBC Hgb Hct MCV MCH MCHC RDW Plt Count MPV Immature Gran % (Auto) Neut % (Auto) Lymph % (Auto) [place] % (Auto) Eos % (Auto) Baso % (Auto) Lymph # (Auto) [place] # (Auto) Eos # (Auto) Baso # (Auto) Abs Immat Gran (auto) Absolute Neuts (auto) Absolute Nucleated RBC Nucleated RBC % Puncture Site ABG pH ABG pCO2 ABG pO2 ABG PO2/FiO2 Ratio ABG HCO3 ABG O2 Saturation ABG O2 Content ABG Base Excess A-a Gradient Oxyhemoglobin Total Hemoglobin O2 Delivery Device O2 Liters/Min FiO2 Sodium Potassium Chloride Carbon Dioxide Anion Gap BUN Creatinine Estim Creat Clear Calc Estimated GFR Glucose Lactic Acid Calcium Total Bilirubin AST ALT Alkaline Phosphatase Troponin I < 0.012 D 0.016 0.015 C-Reactive Protein NT-Pro-B Natriuret Pep 2320 H Total Protein Albumin Urine Color Urine Appearance Urine pH Ur Specific [place] Urine Protein Urine Glucose (UA) Urine Ketones Ur Blood (Man) Urine Nitrate Urine Bilirubin Urine Urobilinogen Leukocyte Esterase Rfl Urine RBC Urine WBC Ur Squamous Epith Cells Urine Bacteria Urine Casts Influenza A (RT-PCR) Influenza B (RT-PCR) RSV (RT-PCR) SARS-CoV-2 RNA (RT-PCR) 08/24/24 08/24/24 08/24/24 16:21 16:10 15:54 WBC RBC Hgb Hct MCV MCH MCHC RDW Plt Count MPV Immature Gran % (Auto) Neut % (Auto) Lymph % (Auto) [place] % (Auto) Eos % (Auto) Baso % (Auto) Lymph # (Auto) [place] # (Auto) Eos # (Auto) Baso # (Auto) Abs Immat Gran (auto) Absolute Neuts (auto) Absolute Nucleated RBC Nucleated RBC % Puncture Site Right brachial ABG pH 7.442 ABG pCO2 38.8 ABG pO2 59.4 L ABG PO2/FiO2 Ratio 2.83 ABG HCO3 25.9 ABG O2 Saturation 91.8 L ABG O2 Content 18.8 ABG Base Excess 1.8 A-a Gradient 43.9 Oxyhemoglobin 89.9 L Total Hemoglobin 14.9 O2 Delivery Device Room air O2 Liters/Min Not Reportable FiO2 21 Sodium Potassium Chloride Carbon Dioxide Anion Gap BUN Creatinine Estim Creat Clear Calc Estimated GFR Glucose Lactic Acid 1.0 Calcium Total Bilirubin AST ALT Alkaline Phosphatase Troponin I C-Reactive Protein < 0.5 NT-Pro-B Natriuret Pep Total Protein Albumin Urine Color Yellow Urine Appearance Clear Urine pH 7.5 Ur Specific [place] 1.010 Urine Protein Negative Urine Glucose (UA) Negative Urine Ketones Negative Ur Blood (Man) Negative Urine Nitrate Negative Urine Bilirubin Negative Urine Urobilinogen 0.2 Leukocyte Esterase Rfl 3+ H Urine RBC 0-2 Urine WBC 51-100 H Ur Squamous Epith Cells Occasional Urine Bacteria 4+ H Urine Casts 0-2 Influenza A (RT-PCR) Negative Influenza B (RT-PCR) Negative RSV (RT-PCR) Negative SARS-CoV-2 RNA (RT-PCR) Negative 08/24/24 13:30 WBC 9.5 RBC 4.89 Hgb 14.5 Hct 44.2 MCV 90.4 MCH 29.7 MCHC 32.8 RDW 13.2 Plt Count 269 MPV 9.8 Immature Gran % (Auto) 0.2 Neut % (Auto) 71.5 Lymph % (Auto) 20.8 [place] % (Auto) 6.6 Eos % (Auto) 0.5 Baso % (Auto) 0.4 Lymph # (Auto) 1.98 [place] # (Auto) 0.6 Eos # (Auto) 0.1 Baso # (Auto) 0.0 Abs Immat Gran (auto) 0.02 Absolute Neuts (auto) 6.8 H Absolute Nucleated RBC 0.000 Nucleated RBC % 0.0 Puncture Site ABG pH ABG pCO2 ABG pO2 ABG PO2/FiO2 Ratio ABG HCO3 ABG O2 Saturation ABG O2 Content ABG Base Excess A-a Gradient Oxyhemoglobin Total Hemoglobin O2 Delivery Device O2 Liters/Min FiO2 Sodium 136 L Potassium 4.1 Chloride 103 Carbon Dioxide 27 Anion Gap 6 BUN 12 Creatinine 0.60 L Estim Creat Clear Calc 52 Estimated GFR > 60 Glucose 123 H Lactic Acid Calcium 9.3 Total Bilirubin 0.7 AST 22 ALT 32 Alkaline Phosphatase 75 Troponin I C-Reactive Protein NT-Pro-B Natriuret Pep Total Protein 7.0 Albumin 4.4 Urine Color Urine Appearance Urine pH Ur Specific [place] Urine Protein Urine Glucose (UA) Urine Ketones Ur Blood (Man) Urine Nitrate Urine Bilirubin Urine Urobilinogen Leukocyte Esterase Rfl Urine RBC Urine WBC Ur Squamous Epith Cells Urine Bacteria Urine Casts Influenza A (RT-PCR) Influenza B (RT-PCR) RSV (RT-PCR) SARS-CoV-2 RNA (RT-PCR) DS: Summary Hospital Course Reason for hospitalization: Generalized weakness Abnormal chest x-ray Asymptomatic bacteriuria Hospital Course: The patient was admitted for evaluation of weakness. ER provider was concerned the patient may have pneumonia but chest x-ray appeared stable patient reports no change in her respiratory symptoms from baseline. She has not had any crease oxygen requirements. She states she herself does not feel like she has pneumonia and I tend to agree with her. She does have some bacteria in her urine with some leukocytosis but this seems consistent with asymptomatic bacteriuria. However the patient is willing to take a couple of days of antibiotics until urine culture comes back if needed. But given her lack of symptoms I think this could be avoided. It sounds as if the patient's weakness is actually more due to adjustment disorder/grieving with the loss of her 2 years ago and the some of her recent life changes. The patient states that she feels in her usual condition and has an outpatient appointment for an echocardiogram on Sunday. She would like to proceed with this outpatient appointment instead of having an echocardiogram while hospitalized. Given that the patient seems reasonable and is able to follow-up and is back to her baseline condition she will be discharged home. Status at Discharge Cognitive/behavioral status at discharge: Stable Functional status at discharge: independent ambulation Time Spent with Patient Time attestation: Total time spent providing and/or coordinating discharge services: Time spent: Greater than 30 minutes Specific discharge activities: Documentation of short stay summary, discussion of symptoms reasons for return, medication reconciliation, arranging follow-up DS: Admitting Diagnosis Discharge Date 08/25/2024 Admitting Diagnosis Pneumonia that was later ruled out Possible UTI Generalized anxiety DS: Discharge Diagnosis Discharge Diagnosis Plan Patient's weakness is likely due to combination of recent breast cancer diagnosis and there is likely some psychological component due to depression. She is not having urinary symptoms or respiratory symptoms that are concerning for UTI or pneumonia Patient will be discharged. All of her home medications will be continued. The patient wants to discuss whether not to change her cardiac medications back to Entresto from losartan. She had stopped Entresto because she thought it may be causing some fatigue. But given that she is still having the same morning symptoms she thinks she would like to go back on Entresto but she wants to discuss this with her security specialist as outpatient. Will continue patient's home metoprolol and losartan. The patient plans to continue her vest therapy as previous. The patient does have an abnormal UA but denies urinary symptoms. Her urine findings are consistent with asymptomatic bacteriuria. The patient would be willing to take some antibiotics for few days but given her lack active symptoms I do not think that this is necessary. Her generalized weakness symptoms have been ongoing for months and is not likely due to bacteriuria. Patient does have some adjustment disorder and generalized anxiety. Hopefully this will be helped by moving in with her daughter and no longer being in the assisted living facility where she feels she does not fit in. Continue p.r.n. alprazolam. Discharge Plan Discharge Attending physician on discharge: Argentina Hernandez Discharging Clinician: Argentina Hernandez Anticipated Discharge Date/Time: 08/25/24 09:10 Patient Disposition: Home, Self-Care Activity: as tolerated Diet: heart healthy Discharge Instructions: The patient will be discharged back to assisted/independent living facility. Keep follow-up appointments with cardiology and primary care physician. Patient Instructions: Antibiotic Form, Heart Failure (DC), Pain Management (DC) Stand Alone Forms: General Discharge Information Follow-up/Referrals: Pawan Echevarria MD [Primary Care Provider] - Discharge Medications: Continued Anoro Ellipta 62.5-25 mcg/actuation blister with device 1 inh inhalation DAILY metoprolol succinate 25 mg tablet extended release 24 hr 25 mg PO QHS sodium chloride 3 % solution for nebulization 25 ml inhalation Q4-6H PRN (Reason: sob/wheezing) losartan 25 mg tablet 25 mg PO DAILY albuterol sulfate 2.5 mg /3 mL (0.083 %) solution for nebulization 2.5 mg continuous nebulization Q6H PRN (Reason: sob/wheezing) alprazolam 0.25 mg tablet 0.25 mg PO TID PRN (Reason: anxiety) Qty: 90 0RF Patient Comments: patient states that she takes 0.5mg at bedtime currently albuterol sulfate [Ventolin HFA] 90 mcg/actuation HFA aerosol inhaler 2 inh inhalation Q4H PRN (Reason: shortness of breath or wheezing) Qty: 6.7 0RF Rx Instructions: Teva sertraline 25 mg tablet 25 mg PO HS cholecalciferol (vitamin D3) 75 mcg (3,000 unit) Tablet 75 mcg PO DAILY Alkadophilus 1 cap PO DAILY Calcium Magnesium 500 mg calcium -250 mg Tablet 1 tablet PO DAILY magnesium 200 mg Tablet 200 mg PO DAILY multivitamin [Daily Multi-Vitamin] Tablet 1 tablet PO DAILY ondansetron HCl 4 mg tablet 4 mg PO Q6H PRN (Reason: nausea and vomiting) Qty: 30 3RF Date of admission: 08/25/24 12:26 Primary Care Provider: Pawan Echevarria Admitting Provider: Bro Sweet Attending physician on admission: Bro Sweet Condition: Improved Quality VTE Prophylaxis VTE prophylaxis: pharmacologic ordered Hospitalist MIPS Advance Care Plan I have confirmed that the patient's Advanced Care Plan is present, code status is documented, or surrogate decision maker is listed in patient medical record.: Yes Medication Reconciliation I have utilized all available resources to obtain, update and review the patients current medications (includes all prescriptions, OTC, herbals, cannabis, and nutritional supplements).: Yes Heart Failure (Qualifier) Patient has current or prior documentation of LVEF less than or equal to 40%, or mod/servere depressed LVSF?: Yes IF NO, STOP HERE If Yes, Heart Failure (Qualifier) Patient was prescribed or already taking an Angiotensin-Converting Enzyme (CALVIN) Inhibitor, or Antiotensin Receptor Adria (ARB): Yes Patient was prescribed or already taking bisoprolol, carvedilol, or sustained release metoprolol succinate: Yes
[2024-08-25] MEDS: CHOLECALCIFEROL 1,000 UNITS TABLET 3000 UNITS PO (09:23)
[2024-08-25] MEDS: ACIDOPHILUS/BULGARICUS CHEWABLE TABLET 1 TABLET BY MOUTH (09:23)
[2024-08-25] MEDS: MAGNESIUM OXIDE 200 MG TABLET PO (09:23)
[2024-08-25] MEDS: MULTIVITAMINS THERAPEUTIC TAB (*BKC) 1 TABLET PO (09:24)
[2024-08-25] MEDS: ENOXAPARIN 40 MG/0.4 ML SYRINGE SUB-Q (09:24)
[2024-08-25] MEDS: FUROSEMIDE INJ 40 MG/4 ML VIAL IV PUSH (09:24)
[2024-08-25] MEDS: LOSARTAN POTASSIUM 25 MG TABLET PO (09:24)
[2024-08-25] MEDS: UMECLIDINIUM/VILANTEROL 62.5-25 MCG ELLIPTA 1 PUFF INHALATION (09:46)
[2024-08-25] MEDS: ALPRAZolam (*CRX) 0.25 MG TABLET PO ×2 (16:30→20:33)
[2024-08-25] MEDS: SERTRALINE HCL 25 MG TABLET PO (20:33)
[2024-08-25] MEDS: METOPROLOL SUCCINATE EXT REL 25 MG TABCR PO (20:33)
[2024-08-26 06:00] VITALS: BP 128/74; PULSE 74; RESP 20; TEMP 37.1; O2SAT 96
[2024-08-26] MEDS: ALPRAZolam (*CRX) 0.25 MG TABLET PO ×2 (06:40→13:15)
[2024-08-26 08:03] VITALS: RESP 20; O2SAT 96
[2024-08-26] MEDS: ENOXAPARIN 40 MG/0.4 ML SYRINGE SUB-Q (08:35)
[2024-08-26] MEDS: CHOLECALCIFEROL 1,000 UNITS TABLET 3000 UNITS PO (08:36)
[2024-08-26] MEDS: MAGNESIUM OXIDE 200 MG TABLET PO (08:36)
[2024-08-26] MEDS: MULTIVITAMINS THERAPEUTIC TAB (*BKC) 1 TABLET PO (08:36)
[2024-08-26] MEDS: LOSARTAN POTASSIUM 25 MG TABLET PO (08:36)
[2024-08-26] MEDS: ACIDOPHILUS/BULGARICUS CHEWABLE TABLET 1 TABLET BY MOUTH (08:36)
--- NOTE | 2024-08-26 09:01 | P.DS_ITS ---
DS: Admitting Diagnosis Discharge Date 08/26/24 Admitting Diagnosis (1) Generalized weakness: Code(s): R53.1 - Weakness Status: Acute (2) Urinary tract infection: Qualifiers: Hematuria presence: without hematuria Urinary tract infection type: acute cystitis Qualified Code(s): N30.00 - Acute cystitis without hematuria Code(s): N39.0 - Urinary tract infection, site not specified Status: Acute (3) CHF exacerbation: Code(s): I50.9 - Heart failure, unspecified Status: Acute (4) Chronic hypoxic respiratory failure, on home oxygen therapy: Code(s): J96.11 - Chronic respiratory failure with hypoxia; Z99.81 - Dependence on supplemental oxygen Status: Acute (5) Anxiety: Code(s): F41.9 - Anxiety disorder, unspecified Status: Acute (6) Essential hypertension: Code(s): I10 - Essential (primary) hypertension Status: Acute DS: Discharge Diagnosis Discharge Diagnosis (1) Generalized weakness: Code(s): R53.1 - Weakness Status: Acute (2) Urinary tract infection: Qualifiers: Hematuria presence: without hematuria Urinary tract infection type: acute cystitis Qualified Code(s): N30.00 - Acute cystitis without hematuria Code(s): N39.0 - Urinary tract infection, site not specified Status: Acute (3) CHF exacerbation: Code(s): I50.9 - Heart failure, unspecified Status: Acute (4) Chronic hypoxic respiratory failure, on home oxygen therapy: Code(s): J96.11 - Chronic respiratory failure with hypoxia; Z99.81 - Dependence on supplemental oxygen Status: Acute (5) Anxiety: Code(s): F41.9 - Anxiety disorder, unspecified Status: Acute (6) Essential hypertension: Code(s): I10 - Essential (primary) hypertension Status: Acute DS: Summary Hospital Course Hospital Course: per HP :84-year-old female with a past medical history of systolic heart failure due to nonischemic cardiomyopathy (2019), essential hypertension, COPD on chronic home O2 with activity, bronchiectasis, invasive ductal carcinoma with left breast lumpectomy (01/2024) and marked anxiety who presented to the ER with increasing generalized weakness. UA performed in the ER which demonstrate 3+ esterase 510 wbc's and floor +bacteria. THE FOLLOWING MED ISSUES HAVE BEEN ADDRESSED DURING HOSPITALIZATION generalized weakness, UTI likely multifactorial due to recent breast cancer diagnosis and possible UTI. Patient's UA is suggestive of UTI. Patient has been placed on empiric antibiotic therapy with Rocephin. Chest x-ray was read as possible atelectasis versus pneumonia history of chronic bronchiectasis and chronic interstitial lung disease/COPD with chronic home O2. Patient has not had increased home O2 requirements does not have a leukocytosis or concerning respiratory exam. She also has QT prolongation on her EKG. stopped azithromycin. change to cefdinir p.o. for UTI Suspecting diastolic heart failure and fluid overload Pending Echocardiogram to evaluate patient's current cardiac structure and function. Patient does remain tachycardic. Will monitor on telemetry. monitor strict I&O's and daily weights. 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 Will continue patient's home Entresto and beta-lauren. Will also continue home inhalers and will add p.r.n. DuoNeb. resume home meds Patient does have a long history of anxiety and family states that she tends to be anxious person her home alprazolam has been ordered. Time Spent with Patient Time attestation: Total time spent providing and/or coordinating discharge services: Exam 2 Narrative: GENERAL: Pleasant, in no acute distress. Well-nourished. - EYES: EOMI. Anicteric. - HENT: Moist mucous membranes. - LUNGS: Coarse breath sound bilateral base - CARDIOVASCULAR: Regular rate and rhyth m. No murmur. No JVD. - ABDOMEN: Soft, non-tender and non-dist ended. No palpable masses. - EXTREMITIES: No edema. Peripheral puls es 2+. Non-tender. - NEUROLOGIC: No focal neurological defi cits. CN II-XII grossly intact. General weakness - PSYCHIATRIC: Awake, Alert and oriented x 3. Appropriate mood and affect. - SKIN: No rashes or lesions. Warm. - LYMPH: No cervical lymphadenopathy. DS: Data Data Completed and Pending Labs on day of discharge: Preliminary micro results at discharge 08/24/24 16:10 Blood Culture - Preliminary Blood 08/24/24 16:31 Blood Culture - Preliminary Blood Discharge Plan Discharge Attending physician on discharge: Argentina Hernandez Discharging Clinician: Argentina Hernandez Anticipated Discharge Date/Time: 08/25/24 09:10 Patient Disposition: Home, Self-Care Activity: as tolerated Diet: heart healthy Discharge Instructions: The patient will be discharged back to assisted/independent living facility. Keep follow-up appointments with cardiology and primary care physician. Patient Instructions: Antibiotic Form, Heart Failure (DC), Pain Management (DC) Patient Language: Upper Sorbian Stand Alone Forms: General Discharge Information Follow-up/Referrals: Pawan Echevarria MD [Primary Care Provider] - Discharge Medications: New cefdinir 300 mg capsule 300 mg PO Q12H Qty: 7 0RF Continued Anoro Ellipta 62.5-25 mcg/actuation blister with device 1 inh inhalation DAILY metoprolol succinate 25 mg tablet extended release 24 hr 25 mg PO QHS sodium chloride 3 % solution for nebulization 25 ml inhalation Q4-6H PRN (Reason: sob/wheezing) losartan 25 mg tablet 25 mg PO DAILY albuterol sulfate 2.5 mg /3 mL (0.083 %) solution for nebulization 2.5 mg continuous nebulization Q6H PRN (Reason: sob/wheezing) alprazolam 0.25 mg tablet 0.25 mg PO TID PRN (Reason: anxiety) Qty: 90 0RF Patient Comments: patient states that she takes 0.5mg at bedtime currently albuterol sulfate [Ventolin HFA] 90 mcg/actuation HFA aerosol inhaler 2 inh inhalation Q4H PRN (Reason: shortness of breath or wheezing) Qty: 6.7 0RF Rx Instructions: Teva sertraline 25 mg tablet 25 mg PO HS cholecalciferol (vitamin D3) 75 mcg (3,000 unit) Tablet 75 mcg PO DAILY Alkadophilus 1 cap PO DAILY Calcium Magnesium 500 mg calcium -250 mg Tablet 1 tablet PO DAILY magnesium 200 mg Tablet 200 mg PO DAILY multivitamin [Daily Multi-Vitamin] Tablet 1 tablet PO DAILY ondansetron HCl 4 mg tablet 4 mg PO Q6H PRN (Reason: nausea and vomiting) Qty: 30 3RF Date of admission: 08/25/24 12:26 Primary Care Provider: Pawan Echevarria Admitting Provider: Bro Sweet Attending physician on admission: Bro Sweet Condition: Improved
[2024-08-26] MEDS: UMECLIDINIUM/VILANTEROL 62.5-25 MCG ELLIPTA 1 PUFF INHALATION (09:08)
[2024-08-26 14:00] VITALS: BP 140/79; PULSE 87; RESP 14; TEMP 37.2; O2SAT 94
== END 2024-08-26 16:50 | DRG 882 ==
LOC: ANHED 17:29 → ANH2MED 20:16
PROVIDERS: Student in an Organized Health Care Education/Training Program; Admitting Provider Internal Medicine; Emergency Provider Emergency Medicine; PCP Family Medicine; Visit Provider Hospitalist
DX: F43.23 Adjustment disorder with mixed anxiety and depressed mood (principal); I50.43 Acute on chronic combined systolic (congestive) and diastolic (congestive) heart failure; N39.0 Urinary tract infection, site not specified; J96.11 Chronic respiratory failure with hypoxia; I11.0 Hypertensive heart disease with heart failure; F43.29 Adjustment disorder with other symptoms; C50.919 Malignant neoplasm of unspecified site of unspecified female breast; J44.9 Chronic obstructive pulmonary disease, unspecified; M54.16 Radiculopathy, lumbar region; M81.0 Age-related osteoporosis without current pathological fracture; Z99.81 Dependence on supplemental oxygen
CPT/HCPCS: 36415; 36600; 71046; 80053; 81001; 82805; 83605; 83880; 84484; 85018; 85025; 86140; 87040; 87086; 87186; 87637; 93005; 94640; 96365; 96367; 96375; 99285; A9270; G0378; J0456; J0696; J1650; J1940; J2060; J2919

== ENCOUNTER 2024-10-01 14:10 | Outpatient (CLI) | payer MEDICARE, OTHER, SELFPAY ==
[2024-10-01 15:09] LABS: Basophils Percent Auto 0.2 % (0.2-1.2); Eosinophils Absolute Auto 0.1 K/mm3 (0-0.3); Eosinophils Percent Auto 0.4 % (0-4.4); Hematocrit 44.9 % (37.0-47.0); Hemoglobin 14.4 g/dL (12.0-15.0); Immature Granulocyte Absolute 0.06 K/mm3 (0.00-0.031); Immature Granulocyte Percent A 0.4 % (0-0.5); Mean Corpuscular HGB Conc 32.1 g/dl (32-36); Mean Corpuscular Volume 90.5 fl (80-100); Mean Platelet Volume 10.2 fl (7.4-10.4); Monocytes Percent Auto 6.3 % (2.6-8.5); Neutrophils Absolute Auto 11.9 K/mm3 (1.3-6.7); Neutrophils Percent Auto 77.7 % (45.5-73.1); Platelet Count Result 250 k/mm3 (150-375); Red Blood Count 4.96 M/mm3 (4.2-5.4); Red Cell Distribution Width 12.8 % (11.5-14.5); White Blood Count 15.3 K/mm3 (4.5-10.0)
[2024-10-01 15:12] LABS: Alanine Aminotransferase 16 U/L (6-35); Albumin Level 4.2 g/dL (3.5-5.1); Alkaline Phosphatase 68 U/L (38-126); Anion Gap 7 mmol/L (4-12); Aspartate Amino Transferase 26 U/L (14-36); Bilirubin,Total 0.5 mg/dL (0.2-1.3); Blood Urea Nitrogen 17 mg/dL (7-17); Calcium 9.1 mg/dL (8.4-10.2); Carbon Dioxide 29 mmol/L (22-30); Chloride 101 mmol/L (98-107); Estimated Glomerular Filt Rate > 60; Glucose 110 mg/dL (65-110); Potassium 4.1 mmol/L (3.4-5.0); Sodium 137 mmol/L (137-145)
[2024-10-03 07:18] LABS: CA 15-3 28 U/mL (<32)
== END 2024-10-01 14:11 | disposition home or self-care (01) ==
PROVIDERS: PCP Family Medicine; Visit Provider Internal Medicine Hematology & Oncology
DX: C50.912 Malignant neoplasm of unspecified site of left female breast (principal); Z17.0 Estrogen receptor positive status [ER+]
CPT/HCPCS: 36415; 80053; 85025; 86300

== ENCOUNTER 2024-11-04 11:22 | Outpatient (CLI) | payer MEDICARE, OTHER, SELFPAY ==
--- NOTE | ~2024-11-04 | MMUS_ITS ---
EXAMINATION: MM diagnostic kathryn BI w rhonda, US breast LT limited HISTORY: Left lumpectomy January 2024. Recent history of the flu. Swollen lymph nodes. TECHNIQUE: Additional 3-D tomosynthesis images of the breasts were performed and synthetic 2-D images were generated. CAD analysis was submitted and interpreted. High resolution Limited left breast and axillary ultrasound was performed. COMPARISON: Comparison to multiple prior studies sequentially, with oldest reviewed study dated 11/05. BREAST PARENCHYMAL COMPOSITION: Dense: The breasts are heterogeneously dense, which may obscure small masses FINDINGS: MAMMOGRAPHIC FINDINGS: The right breast is stable without evidence for malignancy. No new masses, calcifications or architec tural distortion. There are lumpectomy changes in the upper outer quadrant of the left breast posteri emerson which appear stable compared with prior examination. There is soft tissue overlying the left pec toralis muscle in the axilla which may represent an enlarged lymph node, although incompletely visual ized. ULTRASOUND: Limited left breast and axillary ultrasound: At 1:00 in the subareolar location there is a stable ova l hypoechoic mass with central echogenicity measuring 7 mm, likely intramammary lymph node. In the le ft axilla there is a complex heterogeneous 1.5 cm oval mass with parallel orientation, internal vascu larity and no significant posterior features. At the incision site in the left axilla there is a comp chris mass with heterogeneous echotexture measuring approximately 1.7 cm. IMPRESSION: 1. Abnormal masses in the left axilla, suspicious for recurrent malignancy. 2. Ultrasound-guided left axillary biopsies recommended. BI-RADS category 4, suspicious findings. Reviewed, dictated and finalized at location B. ER/WAITRESS ROOM SERVICE IMPRESSION: 1. Abnormal masses in the left axilla, suspicious for recurrent malignancy. 2. Ultrasound-guided left axillary biopsies recommended. BI-RADS category 4, suspicious findings.
--- OUTSIDE RECORDS SUMMARY | 2024-11-04 11:26 | XMS_ITS | Encounter Summary ---
Author Organization [facility] Address [address] [place] [address] Phone Care Team Providers Care Double Needle Stitcher Name Role Phone Geeta Crisostomo MD Primary Care Provider [phone] Gavin Gross MD Primary Care Provider [phone] Pawan Echevarria MD Primary Care Provider [phone] Encounter Details Date Type Department Care Team (Late st Contact Info) Description 02/24/2021 Orders Only [facility] Scanning, Provider Social History Tobacco Use Types Packs/Day Years Used Date Smoking Tobacco: Former Smokeless Tobacco: Never Alcohol Use Standard Drinks/Week Comments No 0 (1 standard drink = 0.6 oz pur e alcohol) Comments Unknown Sex and Gender Information Value Date Recorded Sex Assigned at Not on file 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 Gender Identity Female 02/01/2022 8:55 AM CDT Sexual Orientation Straight 02/01/2022 8: 55 AM CDT documented as of this encounter Plan of Treatment Not on file documented as of this encounter Procedures Procedure Name Priority Date/Time Associated Diagnosis Comments SCAN - LABS 02/24/2021 documented in this encounter Results * SCAN - LABS (02/24/2021) us Provider Scanning Edited Result - Final documented in this encounter Visit Diagnoses Not on filedocumented in this encounter Care Teams Double Needle Stitcher Relationship Specialty Start Date End Date Geeta Crisostomo MD [address] [place] [address] PCP - General Family Medicine 03/08/18 03/28/22 Gavin Gross MD [address] [place] [address] PCP - General Family Medicine 03/29/22 06/05/23 Pawan Echevarria MD [address] [place] [address] [place] [address] PCP - General Family Medicine 06/06/23 documented as of this encounter
--- OUTSIDE RECORDS SUMMARY | 2024-11-04 11:26 | XMS_ITS | Encounter Summary ---
Author Organization [facility] Address [facility] [place] [address] Care Team Providers Care Aviation Metalsmith Name Role Phone Edilberto Crisostomo MD Primary Care Provider [phone] Gavin Gross MD Primary Care Provider [phone] Pawan Echevarria MD Primary Care Provider [phone] Encounter Details Date Type Department Care Team (Late st Contact Info) Description 03/22/2021 MyChart Message Enc [facility] Mult[facility] - [address], [address] [place] [id number] Abdon Flynn MD [address] [place] [address] [address] [place] [address] Referral Request Social History Tobacco Use Types Packs/Day Years Used Date Smoking Tobacco: Former Cigarettes 0.3 6 0 02/25/1974 - 02/26/1980 Smokeless Tobacco: Never Alcohol Use Standard Drinks/Week Comments Yes 0 (1 standard drink = 0.6 oz pur e alcohol) minimal rare use AUDIT-C Answer Date Recorded Frequency of Alcohol Consumption 4 or more times a week 11/28/2018 Average Number of Drinks 1 or 2 019 Frequency of Binge Drinking Daily or almost kevin y 11/28/2018 PHQ-2 Answer Date Recorded PHQ-2 Score - If the patient scores above 3, please move on to questions 3-9 0 01/11/2021 Comments No Sex and Gender Information Value Date Recorded Sex Assigned at Female 10/03/2024 2:27 PM TACTICAL DECEPTION PLANS OFFICER Legal Sex Female 4:16 PM CDT Gender Identity Not on file Sexual Orientation Not on file documented as of this encounter Plan of Treatment Upcoming Encounters Date Type Department Care Team (Late st Contact Info) Description 01/14/2025 11:40 AM CDT Office Visit [facility] - [facility] [address] [place] [address] Abdon Flynn MD [address] [place] [address] documented as of this encounter Visit Diagnoses Not on filedocumented in this encounter Additional Health Concerns Infection Onset Date Last Indicated Resolved Time COVID-19 Rule Out 10/03/2024 10/03/2024 10/03/2024 5:30 PM TACTICAL DECEPTION PLANS OFFICER COVID-19 Rule Out 10/04/2024 10/04/2024 10/04/2024 3:19 AM TACTICAL DECEPTION PLANS OFFICER Influenza - Seasonal 10/04/2024 10/04/2024 025 12:32 AM TACTICAL DECEPTION PLANS OFFICER documented as of this encounter Care Teams Aviation Metalsmith Relationship Specialty Start Date End Date Edilberto Crisostomo MD [address] [place] [address] PCP - General FAMILY PRACTICE 12/10/17 07/12/22 Gavin Gross MD [address] [place] [address] PCP - General FAMILY PRACTICE 07/13/22 04/16/23 [place] [address] [place] [address] [address] [place] [address] PCP - General FAMILY PRACTICE 04/17/23 documented as of this encounter
--- OUTSIDE RECORDS SUMMARY | 2024-11-04 11:26 | XMS_ITS | Encounter Summary ---
Author Organization [facility] Address [address] [place] [address] Phone Care Team Providers Care Strip Cleaner Name Role Phone Geeta Crisostomo MD Primary Care Provider [phone] Gavin Gross MD Primary Care Provider [phone] Pawan Echevarria MD Primary Care Provider [phone] Encounter Details Date Type Department Care Team (Late st Contact Info) Description 04/05/2021 Orders Only [facility] Scanning, Provider Social History Tobacco Use Types Packs/Day Years Used Date Smoking Tobacco: Former Smokeless Tobacco: Never Alcohol Use Standard Drinks/Week Comments No 0 (1 standard drink = 0.6 oz pur e alcohol) Comments Unknown Sex and Gender Information Value Date Recorded Sex Assigned at Not on file 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 Gender Identity Female 02/01/2022 8:55 AM CDT Sexual Orientation Straight 02/01/2022 8: 55 AM CDT documented as of this encounter Plan of Treatment Not on file documented as of this encounter Procedures Procedure Name Priority Date/Time Associated Diagnosis Comments SCAN - LABS 04/05/2021 documented in this encounter Results * SCAN - LABS (04/05/2021) us Provider Scanning Final Result documented in this encounter Visit Diagnoses Not on filedocumented in this encounter Care Teams Strip Cleaner Relationship Specialty Start Date End Date Geeta Crisostomo MD [address] [place] [address] PCP - General Family Medicine 03/08/18 03/28/22 Gavin Gross MD [address] [place] [address] PCP - General Family Medicine 03/29/22 06/05/23 Pawan Echevarria MD [address] [place] [address] [place] [address] PCP - General Family Medicine 06/06/23 documented as of this encounter
--- OUTSIDE RECORDS SUMMARY | 2024-11-04 11:26 | XMS_ITS | Clinical Summary ---
Author Organization [facility] Virtual Care Address [address] [place] [phone] Phone Care Team Providers Care Product Advisor Name Role Phone Pawan Echevarria MD Primary Care Provider [phone] Allergies No known active allergies Medications calcium carbonate-vitamin D3 500 mg(1,250mg) -400 unit chewable tablet Take 1 tablet by mouth daily Active umeclidinium-vilan teroL (Anoro Ellipta) 62.5-25 mcg/actuation blister with device Inhale 1 puff daily 1 Active albuterol HFA (PROVENTIL HFA,VENTOLIN HFA,PROAIR HFA) 90 mcg/actuation inhaler 2 Active mucus clearing device device 1 Device by Not Applicable route every 4 (four) hours as needed (wheezing) 1 each 3 Active ALPRAZolam (XANAX) 0.25 mg tablet Take 1 tablet (0.25 mg total) by mouth nightly as needed for anxiety 30 tablet 3 Active vitamin E 400 unit capsule Take 1 capsule (400 Units total) by mouth Active multivit-min/oziel us fumarate (MULTI VITAMIN ORAL) Take by mouth Ac tive Tezspire 210 mg/1.91 mL (110 mg/mL) pen injector Inject 210 mg under the skin every 28 (twenty-eight) days 4 Active metoprolol XL (TOPROL-XL) 25 mg extended release tabletIndications: Nonischemic cardiomyopathy (CMS/HCC) (HCC) Take 1 tablet (25 mg total) by mouth daily 90 tablet 3 4 025 Active sacubitriL-valsart an (ENTRESTO) 24-26 mg tabletIndications: chronic heart failure Take 1 tablet by mouth 2 (two) times a day 180 tablet 3 4 Active sertraline (ZOLOFT) 50 mg tablet Take 1 tablet (50 mg total) by mouth daily Active empagliflozin (JARDIANCE) 10 mg tablet Take 1 tablet (10 mg total) by mouth daily 90 tablet 6 5 Active Active Problems Problem Noted Date Diagnosed Date Dysfunction of both eustachian tubes 03/18/2024 Impacted cerumen of left ear 11/06/2023 Sensorineural hearing loss (SNHL) of both ears 0 11/06/2023 Pharyngoesophageal dysphagia 11/06/2023 Medicare annual wellness visit, subsequent 10/04 Chronic right-sided congestive heart failure (CM S/HCC) 10/04/2022 Pseudomonas aeruginosa bronchiectasis infection 05/16/2021 Assessment & Plan (05/17/2021 5:27 PM CDT): - (01/28/21): very light growth of PSAR (S: cefe, cipro/levo, pip-tazo, tobra; I: amika/gent) ---> s/p ciprofloxacin for 14 days. - (03/15/21): multiple types (x5) of abundant mccoy-sensitive PSAR mucoid morphotype (except x1 R to gent) ---> s/p levofloxacin for 28 days. - (04/05): mixed upper respiratory kole. PLAN - Bacterial sputum culture today (H/o recurrent PSAR). - if PSAR is confirmed, we'll treat based on susceptibilities, and likely give longer course as recommended by the guidelines for the management of PSAR- infected bronchiectasis. - recommend using the Acapella device twice daily. 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 Chest CT (12/24/20): multiple areas of bronchiectasis + tree-in-bud, particularly in RML, lingula, and both lower lobes, c/f NTMLD. No cavitary disease, no LAD. First AFB (+) sputum culture (06/04/21) --> x1 in broth and identification by DNA probe (AFB cx NG on January 2018). Repeat AFB sputum cx: - (12/14/20): M.fortuitum --likely a contaminant. - (01/12) w/o AFBs on stain and NG after 6 weeks. - (01/28) w/o AFBs on stain and NG after 6 weeks. - (02/24) w/o AFBs on stain --AFB w/DNA probe (+) for MAC. - (04/05) w/o AFBs on stain and NGTD - (05/03) w/o AFBs on stain and NGTD Pulmonary Function test (04/09/20): FVC 80%; FEV1 41%; FEV1/FVC ratio 39%. NTM therapy naive PLAN - will follow last AFB cxs, and get new AFB cx today - recommend using the Acapella device twice daily. - Given concomitant, recurrent bouts of PSAR infection with regular GI tolerance to fluoroquinolones, we're aiming to optimize use of airway clearing device and evaluating persistent (+) cx with MAC to determine the need for guideline-based therapy. Assessment & Plan (03/15/2021 4:35 PM CDT): Summary NTM organism: Mycobacterium avium complex Type of NTMLD: Nodular/bronchiectatic Chest CT (02/25/18): Stable bronchiectasis w/atelectasis and/or scaring + b/l peripheral mucous plugging + b/l nodular densities + mild reactive LAD. Chest CT (12/24/20): multiple areas of bronchiectasis + tree-in-bud, particularly in RML, lingula, and both lower lobes, c/f NTMLD. No cavitary disease, no LAD. First AFB (+) sputum culture (06/04/21) --> x1 in broth and identification by DNA probe (AFB cx NG on January 2018). Repeat AFB sputum cx: - (12/14/20): M.fortuitum --likely a contaminant. - (01/12) w/o AFBs on stain and NG after 6 weeks. - (01/28) w/o AFBs on stain and NG after 6 weeks. - (02/24) w/o AFBs on stain and NGTD Bacterial cx (01/28): very light rowth of PSAR (S: cefe, cipro/levo, pip-tazo, tobra; I: amika/gent) ---> s/p ciprofloxacin for 14 days. Pulmonary Function test (04/09/20): FVC 80%; FEV1 41%; FEV1/FVC ratio 39%. NTM therapy naive Currently does not fulfil ATS/IDSA diagnostic criteria for NTMLD, and remains hesitant about embarking in a prolonged course of antimicrobials with potential side effects. Would not favor NTM therapy at this time, only monitoring with multiple AFB sputum cx (x3) every 6 months is warranted, as the pt is at risk for pulmonary MAC due to her extensive bronchiectasis. PLAN - Bacterial sputum culture today --> concern for recurrent PSAR. - if PSAR is confirmed, we'll treat based on susceptibilities, and likely give longer course as recommended by the guidelines for the management of PSAR- infected bronchiectasis. - recommend using the Quake twice daily. - will follow last AFB cx result until negative. RTC in 2 months Assessment & Plan (12/15/2020 3:57 PM CDT): Summary NTM organism: Mycobacterium avium complex Type of NTMLD: Nodular/bronchiectatic Baseline Chest CT (02/25/18): Stable bronchiectasis w/atelectasis and/or scaring + b/l peripheral mucous plugging + b/l nodular densities + mild reactive LAD. Date of first AFB culture (06/04/21) --> x1 in broth and identification by DNA probe (AFB cx NG on January 2018). Pulmonary Function test (04/09/20): FVC 80%; FEV1 41%; FEV1/FVC ratio 39%. NTM therapy naive Pt is certainly at risk and symptoms are concerning for pulmonary MAC, though, symptoms of MAC-LD and bronchiectasis tend to overlap. Currently she does not fulfil ATS/IDSA diagnostic criteria for NTMLD, and remains hesitant about embarking in a prolonged course of antimicrobials with potential side effects. Thus, we'll get multiple AFB sputum cx (one collected today) and repeat Chest CT to confirm her diagnosis prior initiation of a multidrug-regimen for MAC-LD. If/when confirmed, thrice-weekly therapy would be an option if her isolate is macrolide- susceptible, vs. enrollment in a poly pill or WENDY trial. We'll further discuss options once the work-up is completed and the diagnosis confirmed. PLAN - Baseline CBC, CMP checked today. - Spoke with her candy butcher, Dr. Abdon Flynn ([facility], to discuss the possibility of sparing inhales corticosteroids given the association with higher risk of MAC infection, and also the benefit from regular use of an airway clearing device --Dr. Flynn will see the patient today discuss options for her--she was prescribed an acapella by Dr. Flynn. - AFB sputum done in clinic --> will get AFB sputum x3 done locally + regular/bacterial sputum cx, and get a new chest hrCT (last in 2017), to determine if the patient fulfills criteria for MAC-LD. - We discussed the rationale for treatment, culture results, treatment plan, length of therapy, risk of recurrent infection, as well as signs/symptoms of recurrent infection (including but not limited to fevers/chills/night sweats, worsening cough or shortness of breath,etc) and to contact ID with any concerns. RTC in 12 weeks. Bronchiectasis 11/28/2018 Assessment & Plan (02/09/2022 11:20 AM CDT): 81 y.o. 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 - Chest CT (02/25/18): Stable bronchiectasis w/atelectasis and/or scaring + b/l peripheral mucous plugging + b/l nodular densities + mild reactive LAD. - PFTs (04/09/20): FVC 80%; FEV1 41%; FEV1/FVC ratio 39%. - Chest CT (12/24/20): multiple areas of bronchiectasis + tree-in-bud, particularly in RML, lingula, and both lower lobes, c/f NTMLD. No cavitary disease, no LAD. - AFB (+) sputum culture x1 (06/04/21) -->in broth and identification by DNA probe. Repeat AFB sputum cx: - (12/14/20): M.fortuitum --likely a contaminant. - (01/12/21) w/o AFBs on stain and NG after 6 weeks. - (01/28/21) w/o AFBs on stain and NG after 6 weeks. - (02/24/21) w/o AFBs on stain --AFB w/DNA probe (+) for MAC. - (04/05/21) w/o AFBs on stain and NGTD - (05/03/21) w/o AFBs on stain and NGTD - (05/17/21) w/o AFBs on stain and NGTD Acute bronchiectasis exacerbation with Pseudomonas on sputum (media tab 01/13/22); now improved on levofloxacin. PLAN - will get CBC, CMP, CRP, bacterial sputum and AFB sputum cx today - complete treatment course as planned - Continue to use her high frequency chest wall oscillation vest to optimize airway clearance.--pt now using it consistently - Continue to follow with Dr. Flynn (pulmonology) - I discussed rationale for manegement, culture results, risk of recurrence, possible complications and reasons to return or call for follow-up. RTC in 3 months Assessment & Plan (08/02/2021 3:44 PM CHART COMPUTER): 81 y.o. 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 - Chest CT (02/25/18): Stable bronchiectasis w/atelectasis and/or scaring + b/l peripheral mucous plugging + b/l nodular densities + mild reactive LAD. - PFTs (04/09/20): FVC 80%; FEV1 41%; FEV1/FVC ratio 39%. - Chest CT (12/24/20): multiple areas of bronchiectasis + tree-in-bud, particularly in RML, lingula, and both lower lobes, c/f NTMLD. No cavitary disease, no LAD. - AFB (+) sputum culture x1 (06/04/21) -->in broth and identification by DNA probe. Repeat AFB sputum cx: - (12/14/20): M.fortuitum --likely a contaminant. - (01/12/21) w/o AFBs on stain and NG after 6 weeks. - (01/28/21) w/o AFBs on stain and NG after 6 weeks. - (02/24/21) w/o AFBs on stain --AFB w/DNA probe (+) for MAC. - (04/05/21) w/o AFBs on stain and NGTD - (05/03/21) w/o AFBs on stain and NGTD - (05/17/21) w/o AFBs on stain and NGTD Although the growth of NTM could have been hindered by the use of quinolones for Pseudomonas at the time of sputum collection, multiple samples are negative and the patient currently does not fulfill diagnostic criteria for MAC, so we discussed collecting more sputum for AFB cx today, and if she has new/worsening symptoms PLAN - will get new AFB cx today - pt will start using a high frequency chest wall oscillation vest prescribed by Dr. Flynn to optimize airway clearance. - MAC guideline-based therapy not favored given the rationale above. --discussed with the patient. - flu shot offered --pt opted out. - I discussed rationale for manegement, culture results, risk of recurrence, possible complications and reasons to return or call for follow-up. 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 8 COPD (chronic obstructive pulmonary disease) Encounters Date Type Department Care Team Description 10/01/2024 1:15 PM CHART COMPUTER Office Visit [facility] Cardiology [address] [place] [address] [address] [place] [phone] Damien Plaza MD Nonischemic cardiomyopathy (CMS/HCC) (HCC) (Primary Dx); PVC (premature ventricular contraction); Anxiety; Chronic hypoxic respiratory failure, on home oxygen therapy (HCC); YUNIOR (obstructive sleep apnea) 09/01/2024 Telephone [facility] Cardiology [address] [place] [address] [place] [phone] Mayra Rubin NP 08/29/2024 3:00 PM CHART COMPUTER Ancillary Procedure [address] [place] [phone] Nonischemic cardiomyopathy (CMS/HCC) (HCC) 08/26/[address] [place] [phone] Mayra Rubin NP Med Management 08/21/[address] [place] [phone] Mayra Rubin NP from Last 3 Months Immunizations Immunization Administration Dates Next Due Influenza, Unspecified 07/07/2022(Deferr ed: Patient Refused),07/06/2021(Deferred: Patient Refused) Surgical History Surgery Date Site/Laterality Comments PARTIAL HIP ARTHROPLASTY APPENDECTOMY CATARACT EXTRACTION 08/2019 HYSTERECTOMY 2006 JOINT REPLACEMENT Hip Replacement 2004 Medical History Medical History Date Comments Cardiac rhythm disturbance Appendix disease Pneumonia Asthma COPD (chronic obstructive pulmonary disease) (HC C) Ear problems HL (hearing loss) Anxiety Heart disease Tuberculosis COPD (chronic obstructive pulmonary disease) (HC C) Bronchiectasis (HCC) Sleep difficulties Family History Medical History Relation Name Comments No Known Problems Father No Known Problems Mother Relation Name Status Comments Father Mother Social History Tobacco Use Types Packs/Day Years Used Date Smoking Tobacco: Former Smokeless Tobacco: Never Tobacco Cessation:Counseling Given: Not Answered Alcohol Use Standard Drinks/Week Comments No 0 (1 standard drink = 0.6 oz pur e alcohol) PHQ-2 Answer Date Recorded PHQ-2 Total Score (If total score is 3 or more points, staff should administer the PHQ-9) 0 10/04/2022 Comments Unknown Sex and Gender Information Value Date Recorded Sex Assigned at Not on file Legal Sex Female 3:43 AM CHART COMPUTER Gender Identity Female 02/01/2022 8:55 AM CDT Sexual Orientation Straight 02/01/2022 8: 55 AM CDT Obstetrics History Last Filed Vital Signs Vital Sign Reading Time Taken Comments Blood Pressure 150/68 10/01/2024 1:07 PM CHART COMPUTER Pulse 56 10/01/2024 1:07 PM CHART COMPUTER Temperature 36.9 C (98.5 F) 10/04/2022 11:40 AM CHART COMPUTER Respiratory Rate 20 03/18/2024 11:5 3 AM CDT Oxygen Saturation 91% 10/01/2024 1:0 7 PM CHART COMPUTER 2 Liters oxygen Inhaled Oxygen Concentration - - Weight 59.4 kg (131 lb) 10/01/2024 1:07 PM CHART COMPUTER Height 162.6 cm (5' 4 ) 10/01/2024 1:07 PM CHART COMPUTER Body Mass Index 22.49 10/01/2024 1:07 PM CHART COMPUTER Plan of Treatment Health Maintenance Due Date Last Done Comments Osteoporosis Screening-Bone Density Scan 1940 DTaP/Tdap/Td Vaccine (1 - Tdap) 02/14/1952 Hepatitis B Screening 1959 Pneumococcal vaccine 65+ (1 of 2 - PCV) 02/14/1960 Zoster Vaccine (1 of 2) 1991 Depression Screening 10/04/2023 10/04/2022, 03/29/20 22 Fall Risk Assessment 10/04/2023 10/04/2022, 03/29/20 22 Well Visit 65+ 10/04/2023 10/04/2022 Covid-19 Vaccine (3 - season) 05/18/202401/2021, 10/26/2020 Influenza Vaccine (#1) 2024 Procedures Procedure Name Priority Date/Time Associated Diagnosis Comments ELECTROCARDIOGRAM REPORT Routine 025 3:58 PM CHART COMPUTER PVC (premature ventricular contraction) TRANSTHORACIC ECHO (TTE) LIMITED/FOLLOW UP WO DOPPLER/CF WO CONTRAST Routine 08/29/2024 3:55 PM CHART COMPUTER Nonischemic cardiomyopathy (CMS/HCC) (HCC) from Last 3 Months Results * Electrocardiogram Report (10/01/2024 3:58 PM CHART COMPUTER) us Damien Plaza MD ECG ORDERABLES Final Result * TRANSTHORACIC ECHO (TTE) LIMITED/FOLLOW UP WO DOPPLER/CF WO CONTRAST (08/29/2024 3:55 PM CHART COMPUTER) Anatomical Region Laterality Modality Ultrasound 08/29/2024 3:50 PM CHART COMPUTER Narrative 08/29/2024 4:17 PM CHART COMPUTER [facility] Cardiology [address] [facility] [address], [place] [address] [address] [facility] [address], [place] [address] P:[phone] P:[phone] Echocardiographic Report Patient Name: NORA TEJEDA M : 1940 Study Date: 08/29/2024 3:50:42 PM Gender: F Tech: Location: [facility] Provider: MAYRA RUBIN Height(Cm): 163 BSA: 1.65 Weight(Kg): 59.9 Heart Rate: 84 BP: 132 / 69 Quality: Good Order Provider: MAYRA RUBIN PROCEDURES: Echocardiographic Report: Limited transthoracic echocardiogram with 2D and M-Mode. INDICATIONS: I42.8 Other cardiomyopathies. MEASUREMENTS: 2D/MM Value Range EF Mod BP 48 % [ 54 - 74 ] Estimated EF 40-45 % 2D/MM Value Range - FINDINGS: Interpretation Site: Exam was interpreted at [facility]. Left Ventricle: Normal left ventricular size. Mild global left ventricular systolic dysfunction. Ejection fraction is measured at 48 %. Ejection Fraction is visually estimated to be 40- 45 %. Global Longitudinal Strain is -15 %. Right Ventricle: Normal right ventricular size. Normal right ventricular systolic function. Pericardium: Normal pericardium with no significant pericardial effusion. CONCLUSIONS: Normal left ventricular size. Mild global left ventricular systolic dysfunction. Ejection fraction is measured at 48 %. Ejection Fraction is visually estimated to be 40- 45 %. Global Longitudinal Strain is -15 %. Electronically Signed By: Ish Vidal MD 08/29/2024 4:17:28 PM CHART COMPUTER 40-45 Procedure Note Ish Vidal MD - 08/29/2024 [facility] Cardiology [address] [facility] [address] [id number] [address] [facility] [address] [place], [place] [address] P:[phone] P:[phone] Echocardiographic Report Patient Name: NORA TEJEDA M : 1940 Study Date: 08/29/2024 3:50:42 PM Gender: F Tech: Location: [facility] Provider: MAYRA RUBIN Height(Cm): 163 BSA: 1.65 Weight(Kg): 59.9 Heart Rate: 84 BP: 132 / 69 Quality: Good Order Provider: MAYRA RUBIN PROCEDURES: Echocardiographic Report: Limited transthoracic echocardiogram with 2D and M-Mode. INDICATIONS: I42.8 Other cardiomyopathies. MEASUREMENTS: 2D/MM Value Range EF Mod BP 48 % [ 54 - 74 ] Estimated EF 40-45 % 2D/MM Value Range - FINDINGS: Interpretation Site: Exam was interpreted at [facility]. Left Ventricle: Normal left ventricular size. Mild global left ventricular systolicdysfunction. Ejection fraction is measured at 48 %. Ejection Fraction is visually estimated kai 40-45 %. Global Longitudinal Strain is -15 %. Right Ventricle: Normal right ventricular size. Normal right ventricular systolicfunction. Pericardium: Normal pericardium with no significant pericardial effusion. CONCLUSIONS: Normal left ventricular size. Mild global left ventricular systolicdysfunction. Ejection fraction is measured at 48 %. Ejection Fraction is visually estimated kai 40-45 %. Global Longitudinal Strain is -15 %. Electronically Signed By: Ish Vidal MD 08/29/2024 4:17:28 PM CHART COMPUTER 40-45 Mayra Rubin NP CV ECHO PROCEDURES Final Result from Last [address] [place] [address] MEDICARE [employer] MEDICARE FOR LIFE MEDICARE FOR LIFE Care Teams Product Advisor Relationship Specialty Start Date End Date Pawan Echevarria MD [address] [place] [address] [id number] PCP - General Family Medicine 06/06/23
--- OUTSIDE RECORDS SUMMARY | 2024-11-04 11:26 | XMS_ITS | Encounter Summary ---
Author Organization [facility] - [facility] Address [facility] [place] [address] Care Team Providers Care Men'S Garment Fitter Name Role Phone Pawan Echevarria MD Primary Care Provider [phone] Encounter Details Date Type Department Care Team (Late st Contact Info) Description 10/03/2024 MyChart Message Enc [facility] Medical Group Multispecialty Care - [facility] [address] [facility] [place] [phone] Abdon Flynn MD [address] [place], [place] [address] [place] [address] Fever/Shortness of Breath Social History Tobacco Use Types Packs/Day Years Used Date Smoking Tobacco: Former Cigarettes 0.3 6 0 02/25/1974 - 02/26/1980 Smokeless Tobacco: Never Alcohol Use Standard Drinks/Week Comments Yes 0 (1 standard drink = 0.6 oz pur e alcohol) minimal rare use [facility] Utilities Answer Date Recorded In the past 12 months has e electric, gas, oil, or water company threatened to shut off services in your home? No 10/04/2024 Humiliation, Afraid, Rape, and Kick questionnair e Answer Date Recorded Within the last year, have y ou been afraid of your partner or ex-partner? No 10/04/2024 Within the last year, have y ou been humiliated or emotionally abused in other ways by your partner or ex-partner? No Within the last year, have y ou been kicked, hit, slapped, or otherwise physically hurt by your partner or ex-partner? No 10/04/2024 Within the last year, have y ou been raped or forced to have any kind of sexual activity by your partner or ex-partner? No 10/04/2024 Social Connection and Isolat ion Panel [NHANES] Answer Date Recorded In a typical week, how many times do you talk on the phone with family, friends, or neighbors? More than three times a week 10/04/2024 Frequency of Social Gatherin gs with Friends and Family Not on file 10/04/2024 Attends Restorationism Services Not on file 10/04 Active Member of Clubs or Organizations Not on f ile 10/04/2024 Attends Club or Organization Meetings Not on mando e 10/04/2024 Marital Status Not on file 10/04/2024 AUDIT-C Answer Date Recorded Frequency of Alcohol Consumption 4 or more times a week 11/28/2018 Average Number of Drinks 1 or 2 019 Frequency of Binge Drinking Daily or almost kevin y 11/28/2018 Overall Financial Resource Strain (CARDIA) Answe r Date Recorded How hard is it for you to pa y for the very basics like food, housing, medical care, and heating? Not hard at all 10/04/2024 PHQ-2 Answer Date Recorded Patient Health Questionnaire-2 Score 2 12/05/2022 [facility] - Occupational Stress Questionnaire Answer Date Recorded Do you feel stress - tense, restless, nervous, or anxious, or unable to sleep at night because your mind is troubled all the time - these days? Not at all 10/04/2024 Hunger Vital Sign Answer Date Recorded Within the past 12 months, y ou worried that your food would run out before you got the money to buy more. Never true 10/04/19 25 Within the past 12 months, t he food you bought just didn't last and you didn't have money to get more. Never true 10/04/2024 PRAPARE - Transportation Answer Date Re corded In the past 12 months, has l ack of transportation kept you from medical appointments or from getting medications? No 09/17 In the past 12 months, has l ack of transportation kept you from meetings, work, or from getting things needed for daily living? No 10/04/2024 Housing Stability Vital Sign Answer Abram e Recorded In the last 12 months, was t here a time when you were not able to pay the mortgage or rent on time? No 10/04/2024 In the past 12 months, how m any times have you moved where you were living? 0 10/04/2024 At any time in the past 12 m [facility], were you homeless or living in a residential (including now)? 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 2:27 PM HAND BOOKBINDER Legal Sex Female 4:16 PM CDT Gender Identity Not on file Sexual Orientation Not on file documented as of this encounter Functional Status documented as of this encounter Mental Status * Question Answer Entry Date Author Status Because of a physical, mental, or emotional condition, do you have serious difficulty concentrating, remembering, or making decisions? No 10/04/2024 5:00 PM HAND BOOKBINDER Nighat Prado R N Active documented in this encounter Plan of Treatment Upcoming Encounters Date Type Department Care Team (Late st Contact Info) Description 01/14/2025 11:40 AM CDT Office Visit [facility] Medical Group Multispecialty Care - [facility] [address] [facility] [place] [phone] Abdon Flynn MD [address] [place] [address] [address] [place] [address] documented as of this encounter Visit Diagnoses Not on filedocumented in this encounter Additional Health Concerns Infection Onset Date Last Indicated Resolved Time COVID-19 Rule Out 10/03/2024 10/03/2024 10/03/2024 5:30 PM HAND BOOKBINDER COVID-19 Rule Out 10/04/2024 10/04/2024 10/04/2024 3:19 AM HAND BOOKBINDER Influenza - Seasonal 10/04/2024 10/04/2024 025 12:32 AM HAND BOOKBINDER Assessment Noted Time PHQ-9 Depression Total Score: 0 12/13/19 22 11:54 AM CDT documented as of this encounter Care Teams Men'S Garment Fitter Relationship Specialty Start Date End Date Pawan Echevarria MD [address] [facility] [address] [address] PCP - General FAMILY PRACTICE 04/17/23 documented as of this encounter
--- OUTSIDE RECORDS SUMMARY | 2024-11-04 11:26 | XMS_ITS | Referral Summary ---
Author Organization [facility] Virtual Care Address [address] [place] [phone] Phone Care Team Providers Care Fold Skiver Name Role Phone Pawan Echevarria MD Primary Care Provider [phone] Encounters Date Type Department Care Team Description 10/01/2024 1:15 PM POMOLOGY TEACHER Office Visit [facility] Medical [facility] Cardiology [address] [place] [address] [place] [phone] Damien Plaza MD Nonischemic cardiomyopathy (CMS/HCC) (HCC) (Primary Dx); PVC (premature ventricular contraction); Anxiety; Chronic hypoxic respiratory failure, on home oxygen therapy (HCC); YUNIOR (obstructive sleep apnea) 09/01/2024 Telephone [facility] Cardiology [address] [place] [address] [place] [phone] Heaven Rubin NP 08/29/2024 3:00 PM POMOLOGY TEACHER Ancillary Procedure [facility] Cardiology [address] [place] [address] [place] [phone] Nonischemic cardiomyopathy (CMS/HCC) (HCC) 08/26/2024 Telephone [facility] Cardiology [address] [place] [address] [place] [phone] Heaven Rubin NP Med Management 08/21/2024 Telephone [facility] Cardiology [address] [place] [address] [place] [phone] Heaven Rubin NP from Last 3 Months Allergies No known active allergies Medications calcium [...] CMP checked today. - Spoke with her ride assembly supervisor, Dr. Abdon Flynn ([facility] Medical Group Multispecialty Care [facility]), to discuss the possibility of sparing inhales [...] get a new chest hrCT (last in 2018), to determine if the patient fulfills criteria [...] 81 y.o. 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 COPD (chronic obstructive pulmonary disease) Immunizations Immunization Administration Dates Next Due Influenza, Unspecified 07/07/2022(Deferr ed: Patient Refused),07/06/2021(Deferred: Patient Refused) Social History Tobacco Use Types Packs/Day Years [...] on file Legal Sex Female 3:43 AM POMOLOGY TEACHER Gender Identity Female 02/01/2022 8:55 AM CDT Sexual Orientation Straight 02/01/2022 8: 55 AM CDT Last Filed Vital Signs Vital Sign Reading Time Taken Comments Blood Pressure 150/68 10/01/2024 1:07 PM POMOLOGY TEACHER Pulse 56 10/01/2024 1:07 PM POMOLOGY TEACHER Temperature 36.9 C (98.5 F) 10/04/2022 11:40 AM POMOLOGY TEACHER Respiratory Rate 20 03/18/2024 11:5 3 AM CDT Oxygen Saturation 91% 10/01/2024 1:0 7 PM POMOLOGY TEACHER 2 Liters oxygen Inhaled Oxygen Concentration - - Weight 59.4 kg (131 lb) 10/01/2024 1:07 PM POMOLOGY TEACHER Height 162.6 cm (5' 4 ) 10/01/2024 1:07 PM POMOLOGY TEACHER Body Mass Index 22.49 10/01/2024 1:07 PM POMOLOGY TEACHER Plan of Treatment Not on file Procedures Procedure Name Priority Date/Time Associated Diagnosis Comments ELECTROCARDIOGRAM REPORT Routine 025 3:58 PM POMOLOGY TEACHER PVC (premature ventricular contraction) TRANSTHORACIC ECHO (TTE) LIMITED/FOLLOW UP WO DOPPLER/CF WO CONTRAST Routine 08/29/2024 3:55 PM POMOLOGY TEACHER Nonischemic cardiomyopathy (CMS/HCC) (HCC) from Last 3 Months Results * Electrocardiogram Report (10/01/2024 3:58 PM POMOLOGY TEACHER) Damien Plaza MD ECG ORDERABLES Final Result * TRANSTHORACIC ECHO (TTE) LIMITED/FOLLOW UP WO DOPPLER/CF WO CONTRAST (08/29/2024 3:55 PM POMOLOGY TEACHER) Anatomical Region Laterality Modality Ultrasound 08/29/2024 3:50 PM POMOLOGY TEACHER Narrative 08/29/2024 4:17 PM POMOLOGY TEACHER [facility] Medical Group Cardiology [address], [place] [address] [address], [place] [address] P:[phone] P:[phone] Echocardiographic Report Patient Name: HERIBERTO TEJEDA M : 1940 Study Date: 08/29/2024 3:50:42 PM Gender: F Tech: KELLEY Location: [facility] Provider: HEAVEN RUBIN Height(Cm): 163 BSA: 1.65 Weight(Kg): 59.9 Heart Rate: 84 BP: 132 / 69 Quality: Good Order Provider: HEAVEN RUBIN PROCEDURES: Echocardiographic Report: Limited transthoracic echocardiogram with 2D and M-Mode. INDICATIONS: I42.8 Other cardiomyopathies. MEASUREMENTS: 2D/MM Value Range EF Mod BP 48 % [ 54 - 74 ] Estimated EF 40-45 % 2D/MM Value Range - FINDINGS: Interpretation Site: Exam was interpreted at [facility]. Left Ventricle: Normal left ventricular size. Mild [...] By: Ish Vidal MD 08/29/2024 4:17:28 PM POMOLOGY TEACHER 40-45 Procedure Note Ish Vidal MD - 08/29/2024 [facility] Medical Group Cardiology [address] [facility] [address], [place] [address] [address] [facility] [address], [place] [address] P:[phone] P:[phone] Echocardiographic Report Patient Name: HERIBERTO TEJEDA M : 1940 Study Date: 08/29/2024 3:50:42 PM Gender: F Tech: KELLEY Location: [facility] Provider: HEAVEN RUBIN Height(Cm): 163 BSA: 1.65 Weight(Kg): 59.9 Heart Rate: 84 BP: 132 / 69 Quality: Good Order Provider: HEAVEN RUBIN PROCEDURES: Echocardiographic Report: Limited transthoracic echocardiogram with 2D and M-Mode. INDICATIONS: I42.8 Other cardiomyopathies. MEASUREMENTS: 2D/MM Value Range EF Mod BP 48 % [ 54 - 74 ] Estimated EF 40-45 % 2D/MM Value Range - FINDINGS: Interpretation Site: Exam was interpreted at [facility]. Left Ventricle: Normal left ventricular size. Mild [...] By: Ish Vidal MD 08/29/2024 4:17:28 PM POMOLOGY TEACHER 40-45 Heaven Rubin NP CV ECHO PROCEDURES Final Result from Last [address] [place] [address] MEDICARE FOR LIFE MEDICARE FOR LIFE MEDICARE FOR LIFE Care Teams Fold Skiver Relationship Specialty Start Date End Date Pawan Echevarria MD [facility] [facility] [place] [address] PCP - General Family Medicine 06/06/23
--- OUTSIDE RECORDS SUMMARY | 2024-11-04 11:27 | XMS_ITS | Clinical Summary ---
Author Organization [facility] Address [facility] [place] [address] Care Team Providers Care Casket Coverer Name Role Phone Pawan Echevarria MD Primary Care Provider [phone] Allergies Active Allergy Reactions Criticality Noted Date Comments Ipratropium Unknown 07/04/2018 Levofloxacin Hallucinations Medium 10/06/2024 [place] Patient reported during admission 09/2024 after x2 doses of LQ Medications multivitamin tabletIndications :Vitamin and/or Mineral Deficiency Take 1 tablet by mouth daily. Indications: Vitamin and/or Mineral Deficiency Active Calcium Carbonate-Vitamin D 500-125 MG-UNIT TabIndications:Vi tamin and/or Mineral Deficiency Indications: Vitamin and/or Mineral Deficiency Active metoprolol succinate ER 25 MG 24 hr tabletIndications :Heart Failure Indications: Cardiac Failure 07/30/20 20 Active sertraline 50 MG tabletIndications :Depression Take 1 tablet by mouth daily. Indications: Depression 03/07/20 21 Active albuterol (PROVENTIL) (2.5 MG/3ML) 0.083% nebulizer solutionIndicatio ns:Shortness of breath Take 3 mLs (2.5 mg total) by nebulization every 4 (four) hours as needed for Wheezing or Shortness of breath. 360 mL 3 12/06/19 23 Active Respiratory Therapy Supplies (NEBULIZER/TUBING /MOUTHPIECE) KitIndications:Br onchiectasis without complication (CMS/HCC [facility]) 1 each by Does not apply route every 4 (four) hours as needed. 1 kit 12/06/19 23 Active sodium chloride 3 % NEBULIZER solutionIndicatio ns:Mixed simple and mucopurulent chronic bronchitis ([facility]) Take 4 mLs by nebulization as needed for Other. 120 mL 5 01/09/20 23 Active empagliflozin (JARDIANCE) 10 MG tabletIndications :Congestive Heart Failure Take 1 tablet by mouth daily. Indications: Congestive Heart Failure 06/17/20 23 Active ENTRESTO 24-26 MG tabletIndications :Congestive Heart Failure Take 1 tablet by mouth 2 (two) times daily. Indications: Congestive Heart Failure 06/17/20 23 Active umeclidinium-robert nterol (ANORO ELLIPTA) 62.5-25 MCG/ACT inhalerIndication s:COPD exacerbation, uncomplicated USE 1 INHALATION DAILY 360 each 3 03/06/20 24 Active albuterol sulfate HFA (PROAIR HFA) 108 (90 Base) MCG/ACT inhalerIndication s:Shortness of breath Inhale 2 puffs into the lungs every 6 (six) hours as needed for Wheezing or Shortness of breath. 18 g 3 07/25/20 24 Active ALPRAZolam (XANAX) 0.5 MG tabletIndications :Anxiety Take 0.5 tablets by mouth nightly as needed for Sleep or Anxiety. Indications: Feeling Anxious Active OXYGENIndications :Shortness of breath 2 L/min by Nasal route as needed. 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 COPD (chronic obstructive pu lmonary disease) ([facility]) 03/05/2018 History of Pseudomonas pneumonia 01/27/2018 Pleural thickening 01/27/2018 Bacterial infection 12/13/2017 Chronic cough 12/10/2017 Asthma exacerbation ([facility]/HCC) 12/10/2017 Wheeze 12/10/2017 Resolved Problems Problem Noted Date Diagnosed Date Resolved Date Encounter for preventive health examination 11/07/2017 05/28/2020 Encounters Date Type Department Care Team Description 10/28/2024 Telephone [facility] [place] [address] [place] [id number] Naeem Grissom MD Results 10/24/2024 12:00 PM LOCATION MANAGER Home Care Visit [facility] Care [address] [address] Juana Gonzalez RN SN OASIS DISCHARGE/ASSESSMENT 10/24/2024 Home Care Visit [address] [address] Juana Gonzalez RN [facility] INTERDISCIPLINARY [place] 10/22/2024 11:30 AM LOCATION MANAGER Home Care Visit [facility] [address] [address] Juana Gonzalez RN SN HOME VISIT 10/17/2024 9:45 AM LOCATION MANAGER Home Care Visit [address] [address] Juana Gonzalez RN SN HOME VISIT 10/14/2024 1:30 PM LOCATION MANAGER Home Care Visit [address] [address] Iris Chauhan od, LPN SN HOME VISIT 10/13/2024 4:00 PM LOCATION MANAGER Home Care Visit [address] [id number] Olga Huertas, PT PT INITIAL EVALUATION 10/09/2024 10:30 AM LOCATION MANAGER Home Care Visit [address] [phone] Juana Gonzalez RN SN OASIS START OF CARE 10/09/2024 Home Care Visit [facility] Home Care [address] [place] [address] [place] [address] Juana Gonzalez RN [facility] INTERDISCIPLINARY MT 10/09/2024 Plan of Care Documentation [facility] [address] [place] [address] [place] [address] 10/08/2024 10:00 AM LOCATION MANAGER Home Care Visit [facility] [address] Care [facility] [place] [address] [place] [address] Eveline Newton RN SN NON ADMIT SOC 10/06/2024 11:45 AM LOCATION MANAGER Home Care Visit [facility] [address] Care [facility] [place] [address] [place] [address] Denice Lizarraga RN LIAISON VISIT 10/03/2024 3:39 PM LOCATION MANAGER - 10/08/2024 3:59 PM LOCATION MANAGER Hospital Encounter [facility] [place] [address] Sarthak Hendrickson MD Alexander, Kaci M, Nelson High DO Suresh, Wolf Johnson MD Shortness Of Breath Discharge Disposition: Home with Home Health Care 10/03/2024 Travel 10/03/2024 MyChart Message [facility] [place] [facility] [address] [facility] [place] [address] Naeem Grissom MD Fever/Shortness of Breath 09/22/2024 2:51 PM LOCATION MANAGER - 09/22/2024 11:59 PM LOCATION MANAGER Hospital Encounter [facility] [address] [place] [address] Naeem Grissom MD Snoring Discharge Disposition: Home or Self Care (Routine Discharge) 09/22/2024 Travel 09/11/2024 10:20 AM LOCATION MANAGER [facility] [address] [facility] [place] [address] Naeem Grissom MD Follow Up (Was at [facility] 08/2024 for UTI (had EKG and CXR done); denies any worsening SOB; wears 1L at times if needed; on Vest Therapy ) 09/11/2024 Travel from Last 3 Months Immunizations Name Administration Dates Next Due PFIZER COVID-19 (ORIGINAL FO RMULATION, PURPLE CAP) mRNA, LNP-S, PF, 30 MCG/0.3 ML DOSE 11/19/2020,10/26/2020 Social History Tobacco Use Types Packs/Day Years Used Date Smoking Tobacco: Former Cigarettes 0.3 6 0 02/25/1974 - 02/26/1980 Smokeless Tobacco: Never Tobacco Cessation:Counseling Given: Yes Alcohol Use Standard Drinks/Week Comments Yes 0 (1 standard drink = 0.6 oz pur e alcohol) minimal rare use OASIS D0700: Social Isolation Answer Da te Recorded Frequency of experiencing loneliness or isolatio n Never 10/24/2024 OASIS A1250: Transportation Answer Date Recorded Lack of Transportation (Medical) No 10/24/2024 Lack of Transportation (Non-Medical) No 10/24/2024 Patient Unable or Declines to Respond No 10/24/2024 OASIS B1300: Health Literacy Answer Abram e Recorded Frequency of needing help to read materials from doctor or pharmacy Never 10/24/2024 [facility] Utilities Answer Date Recorded In the past 12 months has th e [employer], oil, or water [employer] threatened to shut off services in your [...] and Family Not on file 10/04/2024 Attends Confucianism Services Not on file 10/04 Active Member [...] Recorded Patient Health Questionnaire-2 Score 2 12/05/2022 [facility] - Occupational Stress Questionnaire Answer Date Recorded [...] any time in the past 12 m [facility], were you homeless or living in a group home (including now)? 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 2:27 PM LOCATION MANAGER Legal Sex Female 4:16 PM CDT Gender Identity Not on file Sexual Orientation Not on file Last Filed Vital Signs Vital Sign Reading Time Taken Comments Blood Pressure 112/54 10/24/2024 12:28 PM LOCATION MANAGER Pulse 78 10/24/2024 12:28 PM LOCATION MANAGER Temperature 36.6 C (97.9 F) 10/14/2024 1:35 PM LOCATION MANAGER Respiratory Rate 20 10/24/2024 12:28 PM LOCATION MANAGER Oxygen Saturation 93% 10/24/2024 12:28 PM LOCATION MANAGER Inhaled Oxygen Concentration - - Weight 59 kg (130 lb) 10/24/2024 12:28 PM LOCATION MANAGER Height 162.6 cm (5' 4 ) 10/03/2024 8:42 PM LOCATION MANAGER Body Mass Index 22.31 10/03/2024 8:42 PM LOCATION MANAGER Plan of Treatment Upcoming Encounters Date Type Department Care Team (Late st Contact Info) Description 01/14/2025 11:40 AM CDT Office Visit [facility] - [address] [place] [phone] Naeem Grissom MD [address] [place] [address] [place] [id number] Health Maintenance Due Date Last Done Comments Pneumococcal Vaccine: 65+ Years (1 of 2 - PCV) 1946 DTaP, Tdap and Td Vaccines ( 1 - Tdap) 02/14/1960 Zoster Vaccines (1 of 2) 1991 Annual Medicare Wellness Visit 2006 Dexa Scan (General) 2006 RSV Immunization or 60+ Years (1 - 1-dose 75+ series) 02/14/2016 COVID-19 Vaccine (3 2023-2 5 season) 2024 11/19/2020, 10/26/2020 Influenza Adult (#1) 2024 PHQ-2 (Physician Kashia) 09/17/2024 10/25/2023 Meningococcal B Vaccine Aged Out No l onger eligible based on patient's age to complete this topic Meningococcal Vaccine Aged Out No emeli jennifer eligible based on patient's age to complete this topic RSV Immunizations Under 20 Months Aged Out No longer eligible b ased on patient's age to complete this topic Procedures Procedure Name Priority Date/Time Associated Diagnosis Comments HOME O2 EVAL Routine 10/08/2024 11:26 AM LOCATION MANAGER CBC W/DIFF AUTOMATED Routine 10/08/2024 5:46 AM LOCATION MANAGER BASIC METABOLIC PANEL Routine 10/08/2024 5:46 AM LOCATION MANAGER CBC W/DIFF AUTOMATED Routine 10/07/2024 6:07 AM LOCATION MANAGER BASIC METABOLIC PANEL Routine 10/07/2024 6:07 AM LOCATION MANAGER CBC W/DIFF AUTOMATED Routine 10/06/2024 6:13 AM LOCATION MANAGER BASIC METABOLIC PANEL Routine 10/06/2024 6:13 AM LOCATION MANAGER CBC W/DIFF AUTOMATED Routine 10/05/2024 8:03 AM LOCATION MANAGER BASIC METABOLIC PANEL Routine 10/05/2024 8:03 AM LOCATION MANAGER CULTURE RESPIRATORY W/ GRAM STAIN STAT 10/04/2024 1:32 PM LOCATION MANAGER CULTURE, TB/AFB W/ STAIN STAT 10/04/2024 1:32 PM LOCATION MANAGER COMPREHENSIVE METABOLIC PANEL STAT 10/04/2024 6:00 AM LOCATION MANAGER CBC W/DIFF AUTOMATED STAT 10/04/2024 6:00 AM LOCATION MANAGER RESPIRATORY PCR PANEL 2 STAT 10/04/2024 1:12 AM LOCATION MANAGER HC MYCOPLASMA AB-90 Routine 10/04/2024 1 2:31 AM LOCATION MANAGER CULTURE, BACTERIA, BLOOD STAT 10/03/2024 11:10 PM LOCATION MANAGER ECG 12-LEAD STAT 10/03/2024 4:49 PM LOCATION MANAGER CULTURE RESPIRATORY W/ GRAM STAIN STAT 10/03/2024 4:27 PM LOCATION MANAGER INFLUENZA A & B STAT 10/03/2024 4:27 PM LOCATION MANAGER CORONAVIRUS (COVID 19) STAT 4:27 PM LOCATION MANAGER LEGIONELLA AG URINE STAT 10/03/2024 4 :15 PM LOCATION MANAGER HC INFECT AGENT DETECT OPTICAL STAT 10/03/2024 4:15 PM LOCATION MANAGER TSH W/REFLEX Routine 10/03/2024 4:15 PM LOCATION MANAGER PHOSPHORUS, INORGANIC PHOSPHATE Routine 10/03/2024 4:15 PM LOCATION MANAGER MAGNESIUM Routine 10/03/2024 4:15 PM LOCATION MANAGER PROCALCITONIN (PCT) STAT 10/03/2024 4 :15 PM LOCATION MANAGER URINALYSIS, AUTO, COMPLETE STAT 10/03/2024 4:15 PM LOCATION MANAGER COMPREHENSIVE METABOLIC PANEL STAT 10/03/2024 4:15 PM LOCATION MANAGER CBC W/DIFF AUTOMATED STAT 10/03/2024 4:15 PM LOCATION MANAGER PRO-BRAIN NATRIURETIC PEPTIDE STAT 10/03/2024 4:15 PM LOCATION MANAGER TROPONIN, QUANT STAT 10/03/2024 4:15 PM LOCATION MANAGER BLOOD GAS, ARTERIAL LAB STAT 10/03/2024 4:05 PM LOCATION MANAGER XR CHEST PA+LAT STAT 10/03/2024 3:05 PM LOCATION MANAGER HOME SLEEP STUDY - WATCHPAT Routine 09/22/2024 3:00 PM LOCATION MANAGER Snoring from Last 3 Months Results * (ABNORMAL) BASIC METABOLIC PANEL (10/08/2024 5:46 AM LOCATION MANAGER) Only the most recent of4 resultswithin the time period is included. [facility] GLUCOSE 84 70 - 99 MG/DL 10/08/2024 9:39 AM [facility] BUN 19(H) 7 - 18 MG/DL 10/08/2024 9:39 AM [facility] CREATININE S/P/B 0.58 0.55 - 1.02 MG/DL 10/08/2024 9:39 AM LOCATION MANAGER [facility] SODIUM S/P/B 134(L) 136 - 145 MMOL/L 10/08/2024 9:39 AM [facility] POTASSIUM S/P/B 4.0 3.5 - 5.1 MMOL/L 10/08/2024 9:39 AM LOCATION MANAGER [facility] CHLORIDE S/P/B 102 97 - 115 MMOL/L 10/08/2024 9:39 AM LOCATION MANAGER [facility] CO2 29.0 21 - 32 MMOL/L 10/08/2024 9:39 AM [facility] CALCIUM S/P/B 8.6 8.5 - 10.1 MG/DL 10/08/2024 9:39 AM [facility] ANION GAP 3.0 2 - 10 MMOL/L 10/08/2024 9:39 AM [facility] BUN CREATININE RATIO 32.9(H) 6 - 26 10/08/2024 9:39 AM LOCATION MANAGER [facility] GFR ESTIMATE 90(L) >90 ML/MIN/1.7 3 M2 10/08/2024 9:39 AM [facility] Comment: NOTE: eGFR is not calculated for patients <18 years of age or gender unknown. This is an estimated GFR calculation using the new CKD EPI creatinine equation without race and so does not require a correction factor for race. This estimated GFR should not be used for calculating drug doses. 10/08/2024 5:46 AM LOCATION MANAGER us Wolf Turner MD LABORATORY Final R esult [facility] [address] [place] [address], [place] [phone] * (ABNORMAL) CBC W/DIFF AUTOMATED (10/08/2024 5:46 AM LOCATION MANAGER) Only the most recent of6 resultswithin the time period is included. WBC 4.27(L) 4.5 - 11.0 x10'3/uL 10/08/2024 6:40 AM [facility] RBC 4.40 4.20 - 5.40 x10'6/uL 10/08/2024 6:40 AM [facility] HGB 12.5 12.0 - 16.0 G/DL 10/08/2024 6:40 AM [facility] HCT 39.2 38.0 - 48.0 % 10/08/2024 6:40 AM LOCATION MANAGER [facility] MCV 89.1 81.0 - 99.0 FL 10/08/2024 6:40 AM [facility] MCH 28.4 27.0 - 31.0 PG 10/08/2024 6:40 AM [facility] MCHC 31.9(L) 32.0 - 36.0 G/DL 10/08/2024 6:40 AM [facility] RDW 13.0 11.5 - 14.5 % 10/08/2024 6:40 AM [facility] PLT 180 130 - 400 x10'3/uL 10/08/2024 6:40 AM [facility] MPV 10.2 9.3 - 12.2 FL 10/08/2024 6:40 AM [facility] DIFFERENTIAL TYPE AUTOMATED DIFFERENTIAL 10/08/2024 6:40 AM [facility] NEUTROPHILS % 57.7 % 10/08/2024 6:40 AM [facility] LYMPHOCYTES % 28.8 % 10/08/2024 6:40 AM [facility] MONOCYTES % 13.1 % 10/08/2024 6:40 AM [facility] EOSINOPHILS 0.0 % 10/08/2024 6:40 AM [facility] BASOPHILS 0.2 % 10/08/2024 6:40 AM [facility] IMMATURE GRANS % 0.2 % 10/08/19 6:40 AM [facility] ABS. NEUTROPHILS 2.46 1.80 - 7.70 x10'3/uL 10/08/2024 6:40 AM [facility] ABS. LYMPHOCYTES 1.23 1.00 - 4.80 x10'3/uL 10/08/2024 6:40 AM [facility] ABS. MONOCYTES 0.56 0.24 - 0.86 x10'3/uL 10/08/2024 6:40 AM [facility] ABS. EOSINOPHILS 0.00(L) 0.04 - 0.36 x10'3/uL 10/08/2024 6:40 AM LOCATION MANAGER [facility] ABS. BASOPHILS 0.01 0.01 - 0.08 x10'3/uL 10/08/2024 6:40 AM LOCATION MANAGER [facility] ABS. IMMATURE GRANULOCYTES 0.01 0.00 - 0.49 x10'3/uL 10/08/2024 6:40 AM LOCATION MANAGER [facility] 10/08/2024 5:46 AM LOCATION MANAGER us Wolf Turner MD LABORATORY Final R esult [facility] [address] [place] [address], [place] [phone] * (ABNORMAL) CULTURE RESPIRATORY W/ GRAM STAIN (10/04/2024 1:32 PM LOCATION MANAGER) Only the most recent of2 resultswithin the time period is included. SPEC DESCRIPTION SPUTUM, EXPECTORATED 10/04/2024 1:32 PM [facility] SPECIAL REQUESTS NO SPECIAL REQUEST 10/04/2024 1:32 PM [facility] GRAM STAIN RESULT MODERATE WHITE BLOOD CELLS SEEN 10/05/2024 10:17 AM [facility] GRAM STAIN RESULT FEW MIXED BACTERIAL NIKOLE 10/05/2024 10:17 AM [facility] CULTURE RESULT SPARSE GROWTH OF PSEUDOMONAS AERUGINOSA SUSCEPTIBILITY ON PREVIOUS SPECIMEN [id number] NOTE: ORGANISM MAY DEVELOP RESISTANCE AFTER 3 TO 4 DAYS OF THERAPY WITH THIRD GENERATION CEPHALOSPORINS. TESTING OF REPEAT ISOLATES MAY BE WARRANTED. (A) 10/06/2024 8:37 AM LOCATION MANAGER [facility] CULTURE RESULT LIGHT GROWTH OF NORMAL NIKOLE PRESENT 10/06/2024 8:37 AM [facility] SPUTUM SPECIMEN / Unknown 10/04/2024 1:32 PM LOCATION MANAGER 10/04/2024 1:46 PM LOCATION MANAGER us Robin Garcia DO MICROBIOLOGY - GENERAL ORD ERABLES Final Result [facility] [address] [place] [address], [place] [phone] * (ABNORMAL) COMPREHENSIVE METABOLIC PANEL (10/04/2024 6:00 AM LOCATION MANAGER) Only the most recent of2 resultswithin the time period is included. [facility] GLUCOSE 119(H) 70 - 99 MG/DL 10/04/2024 6:37 AM [facility] BUN 17 7 - 18 MG/DL 10/04/2024 6:37 AM [facility] CREATININE S/P/B 0.72 0.55 - 1.02 MG/DL 10/04/2024 6:37 AM [facility] SODIUM S/P/B 133(L) 136 - 145 MMOL/L 10/04/2024 6:37 AM [facility] POTASSIUM S/P/B 4.0 3.5 - 5.1 MMOL/L 10/04/2024 6:37 AM [facility] CHLORIDE S/P/B 102 97 - 115 MMOL/L 10/04/2024 6:37 AM [facility] CO2 25.8 21 - 32 MMOL/L 10/04/2024 6:37 AM [facility] CALCIUM S/P/B 8.7 8.5 - 10.1 MG/DL 10/04/2024 6:37 AM [facility] BILIRUBIN TOTAL S/P/B 0.3 0.2 - 1.2 MG/DL 10/04/2024 6:37 AM [facility] Comment: THIS ASSAY IS NOT RECOMMENDED FOR PATIENTS UNDERGOING TREATMENT WITH ELTROMBOPAG DUE TO THE POTENTIAL FOR FALSELY ELEVATED RESULTS. TOTAL PROTEIN S/P/B 6.5 6.4 - 8.2 G/DL 10/04/2024 6:37 AM [facility] ALBUMIN S/P/B 3.1(L) 3.4 - 5.0 G/DL 10/04/2024 6:37 AM [facility] AST 13(L) 15 - 37 U/L 10/04/2024 6:37 AM [facility] ALT 19 14 - 55 U/L 10/04/2024 6:37 AM [facility] ALKALINE PHOSPHATASE S/P/B 49(L) 50 - 136 U/L 10/04/2024 6:37 AM [facility] ANION GAP 5.2 2 - 10 MMOL/L 10/04/2024 6:37 AM [facility] BUN CREATININE RATIO 23.7 6 - 26 10/04/2024 6:37 AM [facility] A/G RATIO 0.9(L) 1.0 - 2.0 RATIO 10/04/2024 6:37 AM [facility] GFR ESTIMATE 83(L) >90 ML/MIN/1.7 3 M2 10/04/2024 6:37 AM [facility] Comment: NOTE: eGFR is not calculated for patients <18 years of age or gender unknown. This is an estimated GFR calculation using the new CKD EPI creatinine equation without race and so does not require a correction factor for race. This estimated GFR should not be used for calculating drug doses. 10/04/2024 6:00 AM LOCATION MANAGER us Lilibeth Manzano CHICLE [employer] LABORATORY Final Resul t [facility] [address] [place] [address], * (ABNORMAL) RESPIRATORY PCR PANEL 2 (10/04/2024 1:12 AM LOCATION MANAGER) [facility] ADENOVIRUS PCR (RESP) NOT DETECTED NOT DETECTED 10/04/2024 3:19 AM [facility] CORONAVIRUS 229E PCR (RESP) NOT DETECTED NOT DETECTED 10/04/2024 3:19 AM [facility] CORONAVIRUS HKU1 PCR (RESP) NOT DETECTED NOT DETECTED 10/04/2024 3:19 AM [facility] CORONAVIRUS NL63 PCR (RESP) NOT DETECTED NOT DETECTED 10/04/2024 3:19 AM [facility] CORONAVIRUS OC43 PCR (RESP) NOT DETECTED NOT DETECTED 10/04/2024 3:19 AM [facility] METAPNEUMOVIRUS PCR (RESP) NOT DETECTED NOT DETECTED 10/04/2024 3:19 AM [facility] RHINOVIRUS/ENTEROV IRUS PCR (RESP) NOT DETECTED NOT DETECTED 10/04/2024 3:19 AM [facility] INFLUENZA A/H1-2009 PCR (RESP) DETECTED(A) NOT DETECTED 10/04/2024 3:19 AM [facility] INFLUENZA B PCR (RESP) NOT DETECTED NOT DETECTED 10/04/2024 3:19 AM [facility] PARAINFLUENZA 1 PCR (RESP) NOT DETECTED NOT DETECTED 10/04/2024 3:19 AM [facility] PARAINFLUENZA 2 PCR (RESP) NOT DETECTED NOT DETECTED 10/04/2024 3:19 AM [facility] PARAINFLUENZA 3 PCR (RESP) NOT DETECTED NOT DETECTED 10/04/2024 3:19 AM [facility] PARAINFLUENZA 4 PCR (RESP) NOT DETECTED NOT DETECTED 10/04/2024 3:19 AM [facility] RSV PCR (RESP) NOT DETECTED NOT DETECTED 10/04/2024 3:19 AM LOCATION MANAGER [facility] B PARAPERTUSIS PCR (RESP) NOT DETECTED NOT DETECTED 10/04/2024 3:19 AM LOCATION MANAGER [facility] BORDETELLA PERTUSSIS PCR (RESP) NOT DETECTED NOT DETECTED 10/04/2024 3:19 AM LOCATION MANAGER [facility] CHLAMYDOPHILA PNEUMONIAE PCR (RESP) NOT DETECTED NOT DETECTED 10/04/2024 3:19 AM LOCATION MANAGER [facility] MYCOPLASMA PNEUMONIAE PCR (RESP) NOT DETECTED NOT DETECTED 10/04/2024 3:19 AM LOCATION MANAGER [facility] CORONAVIRUS SARS COV 2 PCR (RESP) NOT DETECTED NOT DETECTED 10/04/2024 3:19 AM LOCATION MANAGER [facility] NASOPHARYNGEAL SWAB / Unknown 10/04/2024 1:12 AM LOCATION MANAGER Lilibeth Manzano [employer] MICROBIOLOGY - GENERAL JAI SKELTON Final Result [address] [address], * (ABNORMAL) MYCOPLASMA PNEUMONIAE AB (10/04/2024 12:31 AM LOCATION MANAGER) M. PNEUMONIAE AB IGG 1.65(H) <=0.90 10/08/2024 5:20 PM LOCATION MANAGER [facility] [place] Comment: Reference Range: <=0.90 Negative 0.91-1.09 Equivocal >=1.10 Positive A positive IgG result indicates that the patient has antibody to Mycoplasma. It does not differentiate between an active or past infection. The clinical diagnosis must be interpreted in conjunction with the clinical signs and symptoms of the patient. M. PNEUMONIAE AB IGM 25 <770 U/mL 10/08/2024 5:20 PM LOCATION MANAGER [facility] [place] Comment: Reference Range: <770 U/ml Negative 770-950 U/mL Low positive >950 U/mL Positive A positive IgM antibody result is consistent with recent infection. However, a negative result does not necessarily rule out recent infection as some individuals may not mount another IgM response, if previously infected. A positive IgM antibody result with or without a positive IgG antibody result, is consistent with recent infection. However, a negative result does not necessarily rule out recent infection as some individuals may not mount another IgM response, if previously infected. A positive IgG antibody result in the absence of a positive IgM antibody result, indicates that the patient has antibody to Mycoplasma. It does not differentiate between an active or past infection. The clinical diagnosis must be interpreted in conjunction with the clinical signs and symptoms of the patient. Test Performed by [facility], [facility], [address] [place] [address] Cj Dallas M.D., Ph.D., Director of Laboratories , CLIA [id number] 10/04/2024 12:3 1 AM LOCATION MANAGER Lilibeth Manzano APRN LABORATORY Final Resul t Performing Organization Address City/[facility]/ZIP Co de Phone Number [facility] [address] [address], [place] [phone] * CULTURE BACTERIA, BLOOD (10/03/2024 11:10 PM LOCATION MANAGER) SPEC DESCRIPTION BLOOD 10/03/2024 4:16 PM LOCATION MANAGER [facility] SPECIAL REQUESTS NO SPECIAL REQUEST 10/03/2024 4:16 PM LOCATION MANAGER [facility] CULTURE RESULT NO GROWTH 5 DAYS 10/08/2024 10:45 AM LOCATION MANAGER [facility] BLOOD SPECIMEN OBTAINED FOR BLOOD CULTURE / Unknown 10/03/2024 11:10 PM LOCATION MANAGER 10/03/2024 11:15 PM LOCATION MANAGER Sarthak Hendrickson MD MICROBIOLOGY - GENERAL ORDERABL ES Final Result [facility] [address] [place] [address], * ECG 12 lead (10/03/2024 4:49 PM LOCATION MANAGER) 10/03/2024 4:49 PM LOCATION MANAGER Narrative [facility] RAD - 10/04/2024 5:10 AM LOCATION MANAGER [address] Test Date: 2024-10-03 Pat Name: HERIBERTO MITCHELLTON Department: 41 Room: EXAM10 Gender: Female Bridge Tender: CC : 1940 Requested By: BRANDI ACEVES Order Number: [id number] Reading MD: Danny Bee Measurements Intervals Shelley Rate: 114 P: 95 AL: 169 QRS: 40 QRSD: 119 T: 138 QT: 322 QTc: 445 Interpretive Statements SINUS TACHYCARDIA WITH FREQUENT VENTRICULAR PREMATURE COMPLEXES Baseline artifact limits interpretation TION MANAGER Procedure Note Danny Bee MD - 10/04/[address] Test Date: 2024-10-03 Pat Name: HERIBERTO HOUSTON Department: 41 Room: EXAM10 Gender: Female Bridge Tender: CC : 1940 Requested By: BRANDI ACEVES Order Number: [id number] Reading MD: Danny Bee Measurements Intervals Shelley Rate: 114 P: 95 AL: 169 QRS: 40 QRSD: 119 T: 138 QT: 322 QTc: 445 Interpretive Statements SINUS TACHYCARDIA WITH FREQUENT VENTRICULAR PREMATURE COMPLEXES Baseline artifact limits interpretation TION MANAGER us Brandi CANELA ECG ORDERABLES Final Resu lt [facility] * CORONAVIRUS (COVID 19) (10/03/2024 4:27 PM LOCATION MANAGER) CORONAVIRUS SARS COV 2 RNA NEGATIVE NEGATIVE 10/03/2024 5:30 PM LOCATION MANAGER [facility] Comment: NEGATIVE RESULTS DO NOT RULE OUT COVID 19 AND SHOULD NOT BE USED THE SOLE BASIS FOR TREATMENT OR PATIENT MANAGEMENT DECISIONS, INCLUDING INFECTION CONTROL DECISIONS. NEGATIVE RESULTS SHOULD BE CONSIDERED IN THE CONTEXT OF A PATIENT'S RECENT EXPOSURES, HISTORY AND THE PRESENCE OF CLINICAL SIGNS AND SYMPTOMS CONSISTENT WITH COVID 19. THE ID NOW COVID-19 2.0 TEST HAS BEEN AUTHORIZED BY THE FDA UNDER EAU FOR USE BY AUTHORIZED LABORATORIES. PERFORMED BY NUCLEIC ACID AMPLIFICATION FOR MOLECULAR QUALITATIVE DETECTION OF SARS-COV-2. SPECIMEN TYPE NASAL 10/03/2024 4:32 PM LOCATION MANAGER [facility] NASAL STRUCTURE / Unknown 10/03/2024 4:27 PM LOCATION MANAGER us Sarthak Hendrickson MD MICROBIOLOGY - GENERAL ORDERABL ES Final Result [facility] [address] [place] [address], * INFLUENZA A & B (10/03/2024 4:27 PM LOCATION MANAGER) SPECIMEN TYPE NASAL 10/03/2024 4:58 PM LOCATION MANAGER [facility] INFLUENZA A NEGATIVE NEGATIVE 10/03/2024 5:30 PM LOCATION MANAGER [facility] INFLUENZA B NEGATIVE NEGATIVE 10/03/2024 5:30 PM LOCATION MANAGER [facility] Comment: Interpretation: Negative for Influenza A and B. A negative result does not exclude influenza virus infection. If influenza is circulating in your community, a diagnosis of influenza should be considered based on a patient's clinical presentation and empiric antiviral treatment should be considered, if indicated. If more conclusive testing is needed for hospitalized inpatients, follow-up confirmatory testing with RT-PCR requires a separate order. NASOPHARYNGEAL SWAB / Unknown 10/03/2024 4:27 PM LOCATION MANAGER Sarthak Hendrickson MD MICROBIOLOGY - GENERAL ORDERABL ES Final Result Performing Organization Address [facility] de Phone Number [facility] [address] [place] [address], * PROCALCITONIN (PCT) (10/03/2024 4:15 PM LOCATION MANAGER) Procalcitonin <0.05 0.00 - 0.49 NG/ML 10/03/2024 5:53 PM LOCATION MANAGER [facility] 10/03/2024 4:15 PM LOCATION MANAGER Brandi Aceves PA LABORATORY Final Resu lt Performing Organization Address [facility] de Phone Number [facility] [address] [place] [address], * TSH W/REFLEX (10/03/2024 4:15 PM LOCATION MANAGER) TSH 0.922 0.358 - 3.74 uIU/ML 10/04/2024 1:37 AM LOCATION MANAGER [facility] Comment: HIGH DOSES OF BIOTIN MAY INTERFERE WITH THIS TEST RESULT. CORRELATION TO CLINICAL HISTORY AND PRESENTATION RECOMMENDED. FREE T4 NOT INDICATED 10/03/2024 4:15 PM LOCATION MANAGER Lilibeth Manzano APRN LABORATORY Final Resul t Performing Organization Address [facility] Co de Phone Number [facility] [address] [place] [address], * (ABNORMAL) PRO-BRAIN NATRIURETIC PEPTIDE (10/03/2024 4:15 PM LOCATION MANAGER) PRO-B TYPE NATRIURETIC PEPTIDE 1,925(H) <450 PG/ML 10/03/2024 5:26 PM LOCATION MANAGER [facility] Comment: CUT POINTS ESTABLISHED BY [employer] ON NT PROBNP (ICON) STUDY (2006). AGE INDEPENDENT: <300 PG/ML HAS A 99% NEGATIVE PREDICTIVE VALUE FOR EXCLUDING ACUTE CHF <50 YEARS: >450 PG/ML IS CONSISTENT WITH ACUTE CHF 50-75 YEARS: >900 PG/ML IS CONSISTENT WITH ACUTE CHF >75 YEARS: >1800 PG/ML IS CONSISTENT WITH ACUTE CHF IN PATIENTS WITH RENAL INSUFFICIENCY (GFR <60), >1200 PG/ML YIELDS A DIAGNOSTIC SENSITIVITY AND SPECIFICITY OF 89% AND 72% FOR ACUTE CHF. 10/03/2024 4:15 PM LOCATION MANAGER Brandi Aceves PA LABORATORY Final Resu lt Performing Organization Address City/[facility]/ZIP Co de Phone Number [facility] [address] [place] [address], [place] [phone] * STREP PNEUMO AG URINE (10/03/2024 4:15 PM LOCATION MANAGER) S. PNEUMONIAE URINARY AG NEGATIVE NEGATIVE 10/04/2024 12:04 PM LOCATION MANAGER [facility] URINE SPECIMEN OBTAINED BY CLEAN CATCH PROCEDURE / Unknown 10/03/2024 4:15 PM LOCATION MANAGER Lilibeth Manzano APRN MICROBIOLOGY - GENERAL ORDE NAFISA Final Result [facility] [address] [place] [address], [place] [phone] * LEGIONELLA AG URINE (10/03/2024 4:15 PM LOCATION MANAGER) LEGIONELLA ANTIGEN (URINE) NEGATIVE NEGATIVE 10/04/2024 12:04 PM LOCATION MANAGER [facility] URINE SPECIMEN / Unknown 10/03/2024 4:15 PM LOCATION MANAGER us Lilibeth Manzano APRN MICROBIOLOGY - GENERAL JAI SKELTON Final Result [facility] [address] [place] [address], [place] [phone] * URINALYSIS, AUTO, COMPLETE (10/03/2024 4:15 PM LOCATION MANAGER) SPECIMEN TYPE URINE CLEAN CATCH 10/03/2024 4:19 PM LOCATION MANAGER [facility] COLOR (U) LIGHT YELLOW 10/03/2024 5:13 PM LOCATION MANAGER [facility] TRANSPARENCY CLEAR 10/03/2024 5:13 PM LOCATION MANAGER [facility] SPECIFIC GRAVITY (U) 1.009 1.001 - 1.030 10/03/2024 5:13 PM LOCATION MANAGER [facility] U PH 6.5 5.0 - 9.0 10/03/2024 5:13 PM [facility] LEUKOCYTES (U) NEGATIVE NEGATIVE 10/03/2024 5:13 PM [facility] NITRITES NEGATIVE NEGATIVE 10/03/2024 5:13 PM [facility] PROTEIN RANDOM (U) NEGATIVE <30 MG/DL 10/03/2024 5:13 PM [facility] GLUCOSE (U) NORMAL NORMAL MG/DL 10/03/2024 5:13 PM [facility] KETONES MG/DL (U) NEGATIVE NEGATIVE MG/DL 10/03/2024 5:13 PM [facility] UROBILINOGEN NORMAL NORMAL MG/DL 10/03/2024 5:13 PM [facility] BILIRUBIN (U) NEGATIVE NEGATIVE MG/DL 10/03/2024 5:13 PM [facility] BLOOD (U) NEGATIVE NEGATIVE 10/03/2024 5:13 PM LOCATION MANAGER [facility] WBC/HPF 2 <6 /HPF 10/03/2024 5:13 PM LOCATION MANAGER [facility] RBC/HPF 2 <6 /HPF 10/03/2024 5:13 PM LOCATION MANAGER [facility] URINE SPECIMEN OBTAINED BY CLEAN CATCH PROCEDURE / Unknown 10/03/2024 4:15 PM LOCATION MANAGER Brandi CANELA URINE ORDERABLES Final Res ult Performing Organization Address City/[facility]/ZIP Co de Phone Number [facility] [address] [place] [address], [place] [phone] * TROPONIN, QUANT (10/03/2024 4:15 PM LOCATION MANAGER) TROPONIN I HIGH SENSITIVITY 44 <54 ng/L 10/03/2024 5:26 PM LOCATION MANAGER [facility] Comment: HIGH DOSES OF BIOTIN, TROPONIN-SPECIFIC AUTOANTIBODIES, AND ANTIBODY THERAPY CONTAINING HAMA MAY INTERFERE WITH THIS TEST RESULT. CORRELATION TO CLINICAL HISTORY AND PRESENTATION RECOMMENDED. 10/03/2024 4:15 PM LOCATION MANAGER Brandi CANELA LABORATORY Final Resu lt Performing Organization Address City/[facility]/ZIP Co de Phone Number [facility] [address] [place] [address], [place] [phone] * PHOSPHORUS, INORGANIC PHOSPHATE (10/03/2024 4:15 PM LOCATION MANAGER) PHOSPHORUS 3.4 2.5 - 4.9 MG/DL 10/04/2024 1:37 AM LOCATION MANAGER [facility] 10/03/2024 4:15 PM LOCATION MANAGER Lilibeth Manzano CHICLE GRINDER FEEDER LABORATORY Final Resul t Performing Organization Address City/[facility]/ZIP Co de Phone Number [facility] [address] [place] [address], [place] [phone] * MAGNESIUM (10/03/2024 4:15 PM LOCATION MANAGER) MAGNESIUM 2.3 1.8 - 2.4 MG/DL 10/04/2024 1:37 AM LOCATION MANAGER [facility] Comment:SLIGHT HEMOLYSIS, RE SULT MAY BE AFFECTED. 10/03/2024 4:15 PM LOCATION MANAGER Lilibeth Manzano CHICLE GRINDER FEEDER LABORATORY Final Resul t Performing Organization Address [facility] Co de Phone Number [facility] [address] [place] [address], [place] [phone] * (ABNORMAL) ARTERIAL BLOOD GAS (10/03/2024 4:05 PM LOCATION MANAGER) PH ARTERIAL 7.49(H) 7.35 - 7.45 10/03/2024 4:15 PM LOCATION MANAGER [facility] PCO2 33.0(L) 35.0 - 45.0 MMHG 10/03/2024 4:15 PM LOCATION MANAGER [facility] PO2 90.0 83.0 - 108.0 MMHG 10/03/2024 4:15 PM LOCATION MANAGER [facility] TOTAL CO2 ARTERIAL 26.1(H) 19.0 - 24.0 MMOL/L 10/03/2024 4:15 PM LOCATION MANAGER [facility] BASE EXCESS 2.2 0.0 - 3.0 MMOL/L 10/03/2024 4:15 PM [facility] O2 SATURATION 98 94.0 - 98.0 % 10/03/2024 4:15 PM [facility] BICARB ARTERIAL 25.1 21.0 - 28.0 MMOL/L 10/03/2024 4:15 PM LOCATION MANAGER [facility] CHANDAN TEST CHANDAN TEST PERFORMED 10/03/2024 4:12 PM LOCATION MANAGER [facility] O2 ADMIN ARTERIAL 28 10/03/2024 4:12 PM LOCATION MANAGER [facility] DRAW SITE ARTERIAL RT RADIAL 10/03/2024 4:12 PM LOCATION MANAGER [facility] 10/03/2024 4:05 PM LOCATION MANAGER us Brandi CAENLA LABORATORY Final Resu lt [facility] [address] [place] [address], [place] [phone] * XR CHEST PA+LAT (10/03/2024 3:05 PM LOCATION MANAGER) Anatomical Region Laterality Modality Chest Radiographic Angie ging 10/03/2024 3:12 PM LOCATION MANAGER Impressions 10/03/2024 3:17 PM LOCATION MANAGER =====IMPRESSION:===== 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 Superimposed acute/active airway infection/inflammation is not excluded. Ordered By: BRANDI ACEVES Interpreted By: Sulema Pinto MD, 10/03/2024 3:12 PM Narrative 10/03/2024 3:17 PM LOCATION MANAGER [facility] [address] [place], [place] [address] Examination: Chest x-ray 2 view Exam date/time: 10/03/2024 2:53 PM Reason For Exam: 84 female. Increasing shortness of breath for the past few days. Comparison: HRCT chest 12/24/2020 and prior study Technique: Frontal and lateral view. Findings: Stable normal cardiac size. Aortic arch calcification. Normal position of the trachea. Hilar and mediastinal contours are within normal limits. Pulmonary vascularity is within normal limits. Chronic mild lung hyperinflation redemonstrated with upper lung zone lucency which can be seen with emphysema/COPD. Redemonstrated chronic interstitial and reticular densities with bronchiectasis in the bilateral lower lobes and lingula which can be seen with small airways infection including mycobacterium. Stable chronic complete right middle lobe collapse. No new confluent airspace consolidation.. No sizable effusion or pneumothorax. Unremarkable upper abdomen Procedure Note Sulema Pinto MD - 10/03/[address] [address] Examination: Chest x-ray 2 view Exam date/time: 10/03/2024 2:53 PM Reason For Exam: 84 female. Increasing shortness of breath for the pastfew days. Comparison: HRCT chest 12/24/2020 and prior study Technique: Frontal and lateral view. Findings: Stable normal cardiac size. Aortic arch calcification. Normalposition of the trachea. Hilar and mediastinal contours are within normallimits. Pulmonary vascularity is within normal limits. Chronic mild lung hyperinflation redemonstrated with upper lung zonelucency which can be seen with emphysema/COPD. Redemonstrated chronic interstitial and reticular densities withbronchiectasis in the bilateral lower lobes and lingula which can be seenwith small airways infection including mycobacterium. Stable chroniccomplete right middle lobe collapse. No new confluent airspaceconsolidation.. No sizable effusion or pneumothorax. Unremarkable upper abdomen =====IMPRESSION:===== Bilateral chronic lung interstitial and airway findings which can be seenwith small airways infectious inflammatory processes such asmycobacterium; no confluent consolidation. Superimposed acute/activeairway infection/inflammation is not excluded. Ordered By: BRANDI ACEVES Interpreted By: Sulema Pinto MD, 10/03/2024 3:12 PM us Brandi CANELA [facility] Final Resu lt * Home Sleep Study - WatchPat ([id number]) (09/22/2024 3:00 PM LOCATION MANAGER) Narrative [facility] - 09/22/2024 3:00 PM LOCATION MANAGER Diego Freeman MD 09/30/2024 10:28 AM Patient Information First Name: HERIBERTO Last Name: CHERYL ID: [id number] Date: 1940 Age: 84 Gender: Female BMI: 22.2 (W=130 lb, H=5' 4) Sleep Study Information Study Date:09/22/2024 Referring Physician Information First Name: Last Name: NAEEM GRISSOM 5.3.82.5 / 4.2.1210 / 82 S/H/A Version: WATCHPAT HOME SLEEP APNEA TEST REPORT SUMMARY DATA SLEEP STUDY/ARCHITECTURE: This patient was studied using a WatchPAT home sleep study device, The evaluation was initiated on 09/22/2024 at 9:56:59 PM and was stopped at 7:07:56 AM. The total recording time was 9 hrs, 10 min with total sleep evaluation of 8 hrs, 16 min. ANALYSIS: (pAHI = PAT Apnea-Hypopnea Index, pRDI = PAT Respiratory Disturbance Index) Total pAHI 3%: 7.5 Total pAHI 4%: 1.3 Total pRDI: 14.7 Average Sleep Oxygen Saturation: 92 Minimum Sleep Oxygen Saturation: 86 Mean Heart Rate During Sleep: 62 Afib Total Duration: 0:02:23 Afib Longest Duration: 0:01:01 (Afib events < 60 seconds may be artifact) Premature Beats (Events per Minute): 4.8 Rev. Printed on:09/30/2024 09/22/2024,[id number],1940,Female *The automatic analysis events or stages have been edited. 539 Page 1 of 2 Sleep Study Report SUMMARY/DIAGNOSIS 1.) Mild Obstructive Sleep Apnea. 2.) Premature beats were noted and minimal atrial fibrillation was suspected during this study. RECOMMENDATIONS [place] treatment option should be discussed with the patient and a plan for treatment should be made. Potential health consequences and medical importance of treatment should also be discussed with the patient. Premature beats were noted and minimal atrial fibrillation was suspected during this study. Given that the patient's past medical history and current medication list wasn't available during interpretation of this study, clinical correlation of these issues may be indicated based upon this patient's underlying medical conditions and current medications. This patient should maintain good sleep hygiene techniques, maintain a consistent sleep/wake schedule with adequate hours of sleep, and avoid hazardous activities when sleepy. The patient should be cautioned about factors that may potentially exacerbate snoring and other sleep-related issues, such as FINANCIAL SERVICES CONSULTANT depressants, especially at bedtime. Raw data reviewed and electronically signed by: Diego Freeman on 09/30/2024 10:26:04 AM at 4:26:10PM, [facility] us Naeem Grissom MD SLEEP CENTER ORDERABLES Fin al Result Performing Organization Address City/State/[facility] Co de Phone Number [facility] [address] [place] [address], from Last 3 Months Insurance Credit Coach MEDICARE Advance Directives * Full Code (Latest Code Status on File) Date Activated Date Inactivated Comments 10/09/2024 3:14 PM * Full Code Date Activated Date Inactivated Comments 10/04/2024 12:11 AM 10/08/2024 6:04 PM Care Teams Casket Coverer Relationship Specialty Start Date End Date Pawan Echevarria MD [address] [facility] [address] [address] PCP - General FAMILY PRACTICE 04/17/23
--- OUTSIDE RECORDS SUMMARY | 2024-11-04 11:27 | XMS_ITS | Encounter Summary ---
Author Organization [facility] Address [address] [place] [address] Care Team Providers Care Dog Or Horse Racing Official Name Role Phone Gavin Gross MD Primary Care Provider [phone] Pawan Echevarria MD Primary Care Provider [phone] Encounter Details Date Type Department Care Team (Late Contact Info) Description 03/14/2023 MyChart Message Enc [facility] Medical Group - [facility] [address] [place], [place] [id number] [place], [facility] Provider Air Quality Message Social History Tobacco Use Types Packs/Day Years [...] kevin y 11/28/2018 PHQ-2 Answer Date Recorded Patient Health Questionnaire-2 Score 2 12/05/2022 Comments No Sex and Gender Information Value Date Recorded Sex Assigned at Female 10/03/2024 2:27 PM GRAPHIC PRODUCTION ARTIST Legal Sex Female 4:16 PM CDT Gender Identity Not on file Sexual Orientation Not on file documented as of this encounter Plan of Treatment Upcoming Encounters Date Type Department Care Team (Late Contact Info) Description 01/14/2025 11:40 AM CDT Office Visit [facility] Medical Group Multispecialty Care - [facility] [address] [facility] [place] [address] Abdon Flynn MD [address] [facility] [address] [place] [address] documented as of this encounter Visit Diagnoses Not on filedocumented in this encounter Additional Health Concerns Infection Onset Date Last Indicated Resolved Time COVID-19 Rule Out 10/03/2024 10/03/2024 10/03/2024 5:30 PM GRAPHIC PRODUCTION ARTIST COVID-19 Rule Out 10/04/2024 10/04/2024 10/04/2024 3:19 AM GRAPHIC PRODUCTION ARTIST Influenza - Seasonal 10/04/2024 10/04/2024 025 12:32 AM GRAPHIC PRODUCTION ARTIST Assessment Noted Time PHQ-9 Depression Total Score: 0 12/13/19 22 11:54 AM CDT documented as of this encounter Care Teams Dog Or Horse Racing Official Relationship Specialty Start Date End Date Gavin Gross MD [address] [facility] [address] [facility] [place] [address] PCP - General FAMILY PRACTICE 07/13/22 04/16/23 Pawan Echevarria MD [facility] [facility] [address] [place] [address] PCP - General FAMILY PRACTICE 04/17/23 documented as of this encounter
--- OUTSIDE RECORDS SUMMARY | 2024-11-04 11:27 | XMS_ITS | Encounter Summary ---
Author Organization [facility] Address [facility] [place] [address] Care Team Providers Care Learning And Development Coordinator Name Role Phone Edilberto Crisostomo MD Primary Care Provider [phone] Gavin Gross MD Primary Care Provider Pawan Echevarria MD Primary Care Provider [phone] Encounter Details Date Type Department Care Team (Late st Contact Info) Description 12/03/2020 TaxiMe Message Enc [facility] Medical Group Multispecialty Care - [address], [address] [place] [phone] Vik, [facility] Provider Provider Social History Tobacco Use Types Packs/Day Years Used Date Smoking Tobacco: Former Cigarettes 0.3 6 0 02/25/1974 - 02/26/1980 Smokeless Tobacco: Never Alcohol Use Standard Drinks/Week Comments Yes 0 (1 standard drink = 0.6 oz pur e alcohol) 2 drinks/day AUDIT-C Answer Date Recorded Frequency of Alcohol Consumption 4 or more times a week 11/28/2018 Average Number of Drinks 1 or 2 019 Frequency of Binge Drinking Daily or almost kevin y 11/28/2018 PHQ-2 Answer Date Recorded PHQ-2 Score 1 09/09/2020 Comments No Sex and Gender Information Value Date Recorded Sex Assigned at Female 10/03/2024 2:27 PM SHERIFF'S OFFICER Legal Sex Female 4:16 PM CDT Gender Identity Not on file Sexual Orientation Not on file documented as of this encounter Plan of Treatment Upcoming Encounters Date Type Department Care Team (Late st Contact Info) Description 01/14/2025 11:40 AM CDT Office Visit [facility] Medical Group Multispecialty Care - [facility] [address] [place] [address] Abdon Flynn MD [address] [facility] [address] [place] [address] documented as of this encounter Visit Diagnoses Not on filedocumented in this encounter Additional Health Concerns Infection Onset Date Last Indicated Resolved Time COVID-19 Rule Out 10/03/2024 10/03/2024 10/03/2024 5:30 PM SHERIFF'S OFFICER COVID-19 Rule Out 10/04/2024 10/04/2024 10/04/2024 3:19 AM SHERIFF'S OFFICER Influenza - Seasonal 10/04/2024 10/04/2024 025 12:32 AM SHERIFF'S OFFICER documented as of this encounter Care Teams Learning And Development Coordinator Relationship Specialty Start Date End Date Edilberto Crisostomo MD [address] [place] [address] PCP - General FAMILY PRACTICE 12/10/17 07/12/22 Gavin Gross MD [address] [facility] [address] [place] [address] PCP - General FAMILY PRACTICE 07/13/22 04/16/23 Pawan Echevarria MD [address] [facility] [address] [place] [address] PCP - General FAMILY PRACTICE 04/17/23 documented as of this encounter
--- OUTSIDE RECORDS SUMMARY | 2024-11-04 11:27 | XMS_ITS | Encounter Summary ---
Author Organization [facility] Address [facility] [place] [address] Care Team Providers Care Silk Weaver Name Role Phone Gavin Gross MD Primary Care Provider [phone] Pawan Echevarria MD Primary Care Provider [phone] Encounter Details Date Type Department Care Team (Late st Contact Info) Description 12/08/2022 MyChart Message Enc [facility] Multispecialty Care - [address] [place] [address] Abdon Flynn MD [address] [place] [address] [address] [place] [address] Rx for Nebulizer Social History Tobacco Use Types Packs/Day Years [...] Sex Assigned at Female 10/03/2024 2:27 PM MINI SHIFTER Legal Sex Female 4:16 PM CDT Gender Identity Not on file Sexual Orientation Not on file COVID-19 Exposure Response Date Recorded In the last 10 days, have yo u been in contact with someone who was confirmed or suspected to have Coronavirus/COVID-19? No / Unsure 12/05/2022 10:06 AM CDT documented as of this encounter Plan of Treatment Upcoming Encounters Date Type Department Care Team (Late st Contact Info) Description 01/14/2025 11:40 AM CDT Office Visit [facility] Multispecialty Care - [facility] [address] [facility] [address] [place] [address] Abdon Flynn MD [address] [place] [address] [address] [place] [address] documented as of this encounter Visit Diagnoses Not on filedocumented in this encounter Additional Health Concerns Infection Onset Date Last Indicated Resolved Time COVID-19 Rule Out 10/03/2024 10/03/2024 10/03/2024 5:30 PM MINI SHIFTER COVID-19 Rule Out 10/04/2024 10/04/2024 10/04/2024 3:19 AM MINI SHIFTER Influenza - Seasonal 10/04/2024 10/04/2024 025 12:32 AM MINI SHIFTER Assessment Noted Time PHQ-9 Depression Total Score: 0 12/13/19 22 11:54 AM CDT documented as of this encounter Care Teams Silk Weaver Relationship Specialty Start Date End Date Gavin Gross MD [address] [facility] [address] [place] [address] PCP - General FAMILY PRACTICE 07/13/22 04/16/23 Pawan Echevarria MD [address] [facility] [address] [place] [address] PCP - General FAMILY PRACTICE 04/17/23 documented as of this encounter
--- OUTSIDE RECORDS SUMMARY | 2024-11-04 11:27 | XMS_ITS | Clinical Summary ---
Author Organization [facility] Address [address] [address] Care Team Providers Care Sanforizer Name Role Phone Pawan Echevarria MD Primary Care Provider [phone] Allergies Active Allergy Reactions Criticality Noted Date Comments Ipratropium Unknown 07/04/2018 Medications albuterol sulfate HFA 90 mcg/actuation aerosol inhaler Take 2 Puffs by inhalation every 6 hours as needed. 2 Active albuterol (PROVENTIL,VENTOL IN) 2.5 mg /3 mL (0.083 %) Solution for Nebulization Take 2.5 mg by inhalation every 4 hours as needed. 3 Active ALPRAZolam (XANAX) 0.5 mg tablet Take 0.5 mg by mouth 3 times daily as needed for Anxiety. 4 Active Calcium-Cholecalc iferol, D3, 500 mg-3.125 mcg (125 unit) Tablet Take by mouth. Ac tive empagliflozin (JARDIANCE) 10 mg tablet Take 10 mg by mouth daily. 3 Active Entresto 24-26 mg Tablet Take 1 Tablet by mouth 2 times daily. 3 Active sertraline (ZOLOFT) 100 mg tablet Take 100 mg by mouth daily. 4 Active Anoro Ellipta 62.5-25 mcg/actuation Disk with Device Take 1 Puff by inhalation daily. 1 Active Active Problems No known active problems Encounters Date Type Department Care Team Description 10/09/2024 External Device Data STL ABSTRACTION Provider, Abstract 10/08/2024 External Device Data STL ABSTRACTION Provider, Abstract 10/07/2024 External Device Data STL ABSTRACTION Provider, Abstract 10/03/2024 Orders Only [facility]cology [facility] H[facility] [address] [place] [phone] Warren Vaughn MD 10/02/2024 Orders Only [facility]ology [address] [place] [address] Warren Vaughn MD from Last 3 Months Family History Medical History Relation Name Comments Throat Cancer Brother 5 Relation Name Status Comments Brother 1 Brother 2 Alive Brother 3 Alive Brother 4 Alive Brother 5 Alive Daughter 1 Alive Daughter 2 Alive Daughter 3 Alive Father Mother Sister 1 Alive Sister 2 Alive Son Alive Social History Tobacco Use Types Packs/Day Years Used Date Smoking Tobacco: Former Cigarettes Smokeless Tobacco: Never Alcohol Use Standard Drinks/Week Comments Never 0 (1 standard drink = 0.6 oz pur e alcohol) Comments Unknown Sex and Gender Information Value Date Recorded Sex Assigned at Not on file Legal Sex Female 7:51 AM CDT Gender Identity Not on file Sexual Orientation Not on file Last Filed Vital Signs Vital Sign Reading Time Taken Comments Blood Pressure 113/80 06/12/2024 11:13 AM CDT Pulse 78 06/12/2024 11:11 AM CDT Temperature 36.6 C (97.8 F) 06/12/2024 11:11 AM CDT Respiratory Rate 14 06/12/2024 11:11 AM CDT Oxygen Saturation 94% 06/12/2024 11:11 AM CDT Inhaled Oxygen Concentration - - Weight 59.2 kg (130 lb 9.6 oz) 06/12/2024 11:11 AM CDT Height 162.6 cm (5' 4 ) 11/29/2023 3:03 PM CDT Body Mass Index 22.42 11/29/2023 3:03 PM CDT Plan of Treatment Health Maintenance Due Date Last Done Comments DTAP/TDAP/TD VACCINES (1 - Tdap) 02/14/1960 PNEUMOCOCCAL VACCINE 65+ YEA RS (1 of 2 - PCV) 02/14/1960 ZOSTER VACCINE (1 of 2) 1991 RSV VACCINE (60+ or ) (1 - 1-dose 75+ series) 02/14/2016 INFLUENZA VACCINE (#1) 2024 COVID-19 Vaccine ( season) 05/18/202401/2021, 10/26/2020 OSTEOPOROSIS SCREENING Completed 06/02/2024 Procedures Procedure Name Priority Date/Time Associated Diagnosis Comments CANCER ANTIGEN 15-3 Routine 10/03/2024 2 :11 PM YARN SPINNER CBC WITH DIFFERENTIAL Routine 10/01/2024 3:09 PM YARN SPINNER COMPREHENSIVE METABOLIC PANEL Routine 10/01/2024 11:45 AM YARN SPINNER from Last 3 Months Results * CANCER ANTIGEN 15-3 (10/03/2024 2:11 PM YARN SPINNER) Blood us Warren Vaughn MD CHEMISTRY ORDERABLES Final Resu lt * CBC WITH DIFFERENTIAL (10/01/2024 3:09 PM YARN SPINNER) Blood us Warren Vaughn MD HEMATOLOGY ORDERABLES Final Res ult * COMPREHENSIVE METABOLIC PANEL (10/01/2024 11:45 AM YARN SPINNER) Blood us Warren Vaughn MD CHEMISTRY ORDERABLES Final Resu lt from Last 3 Months Insurance MEDICARE PART A AND B FOR LIFE Care Teams Sanforizer Relationship Specialty Start Date End Date Pawan Echevarria MD [address] [place] [id number] PCP - General Family Practice 11/29/23
== END 2024-11-04 11:23 | disposition home or self-care (01) ==
LOC: ANHIMG 11:22
PROVIDERS: PCP Family Medicine; Visit Provider Surgery
DX: R92.8 Other abnormal and inconclusive findings on diagnostic imaging of breast (principal); N63.32 Unspecified lump in axillary tail of the left breast; C50.912 Malignant neoplasm of unspecified site of left female breast
CPT/HCPCS: 76642; 77062; 77066; G0279

== ENCOUNTER 2024-11-04 12:33 | Outpatient (CLI) | payer MEDICARE, OTHER, SELFPAY ==
--- NOTE | ~2024-11-04 | XR_ITS ---
Lumbosacral Spine: AP and lateral views Clinical History: Pain Findings: There is probable mild dextro scoliosis. There is moderate to advanced facet arthropathy th roughout the lumbar spine. There is advanced degenerative disc narrowing L5-S1. There are minimal deg enerative disc changes at the remaining levels. The sacroiliac joints are normally outlined. Impression: Degenerative change, as above. Reviewed, dictated and finalized at location M. PATIAL TECHNICIAN Impression: Degenerative change, as above.
--- NOTE | ~2024-11-04 | XR_ITS ---
Thoracic spine: Clinical Indication: Back pain AP and lateral views were performed. There is severe compression fracture of T6. There is mild compression deformity of T7. Probable minim al chronic compression deformities of T8 and T9.. There is moderate to advanced degenerative disc aurelia rowing throughout the thoracic spine. Paravertebral soft tissues appear normal. Impression: Multiple compression fractures of the mid to lower thoracic spine, as above. Degenerative change, as above. Reviewed, dictated and finalized at location M. STERED ASSOCIATE Impression: Multiple compression fractures of the mid to lower thoracic spine, as above. Degenerative change, as above.
--- OUTSIDE RECORDS SUMMARY | 2024-11-04 12:38 | XMS_ITS | Clinical Summary ---
Author Organization [facility] Virtual Care Address [address] [place] [phone] Phone Care Team Providers Care Leather Dresser Name Role Phone Pawan Echevarria MD Primary Care Provider [phone] Allergies No known active allergies Medications calcium [...] CMP checked today. - Spoke with her streetcar dispatcher, Dr. Abdon Flynn ([facility] Multispecialty [facility], to discuss the possibility of sparing [...] 81 y.o. 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 8 COPD (chronic obstructive pulmonary disease) Encounters Date Type Department Care Team Description 10/01/2024 1:15 PM SALON/SPA MANAGER Office Visit [facility] Cardiology [address] [place] [address] [address] [place] [phone] Damien Plaza MD Nonischemic cardiomyopathy (CMS/HCC) (HCC) (Primary Dx); PVC (premature ventricular contraction); Anxiety; Chronic hypoxic respiratory failure, on home oxygen therapy (HCC); YUNIOR (obstructive sleep apnea) 09/01/2024 Telephone [facility] Cardiology [address] [place] [address] [place] [phone] Mayra Rubin NP 08/29/2024 3:00 PM SALON/SPA MANAGER Ancillary Procedure [address] [place] [phone] Nonischemic cardiomyopathy (CMS/HCC) (HCC) 08/26/[address] [place] [phone] Mayra Rubin NP Med Management 08/21/[address] [place] [phone] Mayra Rubin NP from Last 3 Months [...] on file Legal Sex Female 3:43 AM SALON/SPA MANAGER Gender Identity Female 02/01/2022 8:55 AM CDT Sexual Orientation Straight 02/01/2022 8: 55 AM CDT Obstetrics History Last Filed Vital Signs Vital Sign Reading Time Taken Comments Blood Pressure 150/68 10/01/2024 1:07 PM SALON/SPA MANAGER Pulse 56 10/01/2024 1:07 PM SALON/SPA MANAGER Temperature 36.9 C (98.5 F) 10/04/2022 11:40 AM SALON/SPA MANAGER Respiratory Rate 20 03/18/2024 11:5 3 AM CDT Oxygen Saturation 91% 10/01/2024 1:0 7 PM SALON/SPA MANAGER 2 Liters oxygen Inhaled Oxygen Concentration - - Weight 59.4 kg (131 lb) 10/01/2024 1:07 PM SALON/SPA MANAGER Height 162.6 cm (5' 4 ) 10/01/2024 1:07 PM SALON/SPA MANAGER Body Mass Index 22.49 10/01/2024 1:07 PM SALON/SPA MANAGER Plan of Treatment Health Maintenance Due Date [...] Comments ELECTROCARDIOGRAM REPORT Routine 025 3:58 PM SALON/SPA MANAGER PVC (premature ventricular contraction) TRANSTHORACIC ECHO (TTE) LIMITED/FOLLOW UP WO DOPPLER/CF WO CONTRAST Routine 08/29/2024 3:55 PM SALON/SPA MANAGER Nonischemic cardiomyopathy (CMS/HCC) (HCC) from Last 3 Months Results * Electrocardiogram Report (10/01/2024 3:58 PM SALON/SPA MANAGER) us Damien Plaza MD ECG ORDERABLES Final Result * TRANSTHORACIC ECHO (TTE) LIMITED/FOLLOW UP WO DOPPLER/CF WO CONTRAST (08/29/2024 3:55 PM SALON/SPA MANAGER) Anatomical Region Laterality Modality Ultrasound 08/29/2024 3:50 PM SALON/SPA MANAGER Narrative 08/29/2024 4:17 PM SALON/SPA MANAGER [facility] Medical Group Cardiology [address] [facility] [address] [address] [address] [facility] [address] [address] P:[phone] P:[phone] Echocardiographic Report Patient Name: NORA TEJEDA M : 1940 Study Date: 08/29/2024 3:50:42 PM Gender: F Tech: Location: [facility] Provider: MAYRA RUBIN Height(Cm): 163 BSA: 1.65 [...] FINDINGS: Interpretation Site: Exam was interpreted at [facility]. Left Ventricle: Normal left ventricular size. [...] By: Ish Vidal MD 08/29/2024 4:17:28 PM SALON/SPA MANAGER 40-45 Procedure Note Ish Vidal MD - 08/29/2024 [facility] Medical Group Cardiology [address] [facility] [address] [id number] [address] [facility] [address] [address] P:[phone] P:[phone] Echocardiographic Report Patient Name: NORA TEJEDA M : 1940 Study Date: 08/29/2024 3:50:42 PM Gender: F Tech: Location: [facility] Provider: MAYRA RUBIN Height(Cm): 163 BSA: 1.65 [...] FINDINGS: Interpretation Site: Exam was interpreted at [facility]. Left Ventricle: Normal left ventricular size. [...] By: Ish Vidal MD 08/29/2024 4:17:28 PM SALON/SPA MANAGER 40-45 Mayra Rubin NP CV ECHO PROCEDURES Final Result from Last [address] [place] [address] MEDICARE [employer] MEDICARE FOR LIFE MEDICARE FOR LIFE Care Teams Leather Dresser Relationship Specialty Start Date End Date Pawan Echevarria MD [address] [place] [address] [id number] PCP - General Family Medicine 06/06/23
--- OUTSIDE RECORDS SUMMARY | 2024-11-04 12:38 | XMS_ITS | Encounter Summary ---
Author Organization [facility] Address [address] [place] [address] Phone Care Team Providers Care Supervisor Airplane Flight Attendant Name Role Phone Geeta Crisostomo MD Primary Care Provider [phone] Gavin Gross MD Primary Care Provider [phone] Pawan Echevarria MD Primary Care Provider [phone] Encounter Details Date Type Department Care Team [...] on file Legal Sex Female 3:43 AM INFORMATION TECHNOLOGY PROJECT MANAGER Gender Identity Female 02/01/2022 8:55 AM [...] on filedocumented in this encounter Care Teams Supervisor Airplane Flight Attendant Relationship Specialty Start Date End Date Geeta Crisostomo MD [address] [place] [address] PCP - General Family Medicine 03/08/18 03/28/22 Gavin Gross MD [address] [place] [address] PCP - General Family Medicine 03/29/22 06/05/23 Pawan Echevarria MD [address] [place] [address] [place] [address] PCP - General Family Medicine 06/06/23 documented as of this encounter
--- OUTSIDE RECORDS SUMMARY | 2024-11-04 12:39 | XMS_ITS | Encounter Summary ---
Author Organization [facility] - [facility] Address [facility] [place] [address] Care Team Providers Care Hydraulic Plumber Helper Name Role Phone Gavin Gross MD Primary Care Provider Pawan Echevarria MD Primary Care Provider [phone] Encounter Details Date Type Department Care Team (Late st Contact Info) Description 12/08/2022 MyChart Message Enc [facility] Medical Group Multispecialty Care - [address] [place] [address] Abdon Flynn MD [address] [place] [address] [address] [place] [address] Rx for Nebulizer Social History Tobacco Use [...] Sex Assigned at Female 10/03/2024 2:27 PM CLERK SPECIALIST Legal Sex Female 4:16 PM CDT Gender [...] Description 01/14/2025 11:40 AM CDT Office Visit [facility]pec[facility] - [facility] [address] [facility] [place] [address] Abdon Flynn MD [address] [place] [address] [address] [place] [address] documented as of this encounter Visit Diagnoses Not on filedocumented in this encounter Additional Health Concerns Infection Onset Date Last Indicated Resolved Time COVID-19 Rule Out 10/03/2024 10/03/2024 10/03/2024 5:30 PM CLERK SPECIALIST COVID-19 Rule Out 10/04/2024 10/04/2024 10/04/2024 3:19 AM CLERK SPECIALIST Influenza - Seasonal 10/04/2024 10/04/2024 025 12:32 AM CLERK SPECIALIST Assessment Noted Time PHQ-9 Depression Total Score: 0 12/13/19 22 11:54 AM CDT documented as of this encounter Care Teams Hydraulic Plumber Helper Relationship Specialty Start Date End Date Gavin Gross MD [address] [facility] [address] [place] [address] PCP - General FAMILY PRACTICE 07/13/22 04/16/23 Pawan Echevarria MD [address] [facility] [address] [place] [address] PCP - General FAMILY PRACTICE 04/17/23 documented as of this encounter
--- OUTSIDE RECORDS SUMMARY | 2024-11-04 12:39 | XMS_ITS | Encounter Summary ---
Author Organization [facility] Address [facility]ending [facility] to [facility] [place] [address] Care Team Providers Care Mat Sewer Name Role Phone Edilberto Crisostomo MD Primary Care Provider [phone] Gavin Gross MD Primary Care Provider [phone] Pawan Echevarria MD Primary Care Provider [phone] Encounter Details Date Type Department Care Team (Late st Contact Info) Description 12/03/2020 [employer] Message Enc [facility] Medical Group Multispecialty Care - [address] [place] [address] Vik, [facility] Provider Provider Social History Tobacco Use Types [...] Sex Assigned at Female 10/03/2024 2:27 PM TRACKWALKER Legal Sex Female 4:16 PM CDT Gender Identity Not on file Sexual Orientation Not on file documented as of this encounter Plan of Treatment Upcoming Encounters Date Type Department Care Team (Late st Contact Info) Description 01/14/2025 11:40 AM CDT Office Visit [facility] Medical Group Multispecialty Care - [facility] [address] [facility] [address] [place] [address] Abdon Flynn MD [address] [facility] [address] [place] [address] documented as of this encounter Visit Diagnoses Not on filedocumented in this encounter Additional Health Concerns Infection Onset Date Last Indicated Resolved Time COVID-19 Rule Out 10/03/2024 10/03/2024 10/03/2024 5:30 PM TRACKWALKER COVID-19 Rule Out 10/04/2024 10/04/2024 10/04/2024 3:19 AM TRACKWALKER Influenza - Seasonal 10/04/2024 10/04/2024 025 12:32 AM TRACKWALKER documented as of this encounter Care Teams Mat Sewer Relationship Specialty Start Date End Date Edilberto Crisostomo MD [address] [place] [address] PCP - General FAMILY PRACTICE 12/10/17 07/12/22 Gavin Gross MD [address] [facility] [address] [place] [address] PCP - General FAMILY PRACTICE 07/13/22 04/16/23 Pawan Echevarria MD [address] [facility] [address] [place] [address] PCP - General FAMILY PRACTICE 04/17/23 documented as of this encounter
--- OUTSIDE RECORDS SUMMARY | 2024-11-04 12:39 | XMS_ITS | Encounter Summary ---
Author Organization [facility] Address [facility] [place] [address] Care Team Providers Care Monument Stonecutter Name Role Phone Edilberto Crisostomo MD Primary Care Provider [phone] Gavin Gross MD Primary Care Provider Pawan Echevarria MD Primary Care Provider [phone] Encounter Details Date Type Department Care Team (Late st Contact Info) Description 03/22/2021 MyChart Message Enc [facility] Medical Group Multispecialty Care - [address] [place] [id number] Abdon Flynn MD [address] [place] [address] [address] [place] [address] Referral Request Social History Tobacco Use Types [...] Sex Assigned at Female 10/03/2024 2:27 PM COOKIE BREAKER Legal Sex Female 4:16 PM CDT Gender Identity Not on file Sexual Orientation Not on file documented as of this encounter Plan of Treatment Upcoming Encounters Date Type Department Care Team (Late st Contact Info) Description 01/14/2025 11:40 AM CDT Office Visit [facility] Medical Group Multispecialty Care - [facility] [address] [facility] [place] [address] Abdon Flynn MD [address] [facility] [address] [place] [address] documented as of this encounter Visit Diagnoses Not on filedocumented in this encounter Additional Health Concerns Infection Onset Date Last Indicated Resolved Time COVID-19 Rule Out 10/03/2024 10/03/2024 10/03/2024 5:30 PM COOKIE BREAKER COVID-19 Rule Out 10/04/2024 10/04/2024 10/04/2024 3:19 AM COOKIE BREAKER Influenza - Seasonal 10/04/2024 10/04/2024 025 12:32 AM COOKIE BREAKER documented as of this encounter Care Teams Monument Stonecutter Relationship Specialty Start Date End Date Edilberto Crisostomo MD [address] [place] [address] PCP - General FAMILY PRACTICE 12/10/17 07/12/22 Gavin Gross MD [address] [facility] [address] [place] [address] PCP - General FAMILY PRACTICE 07/13/22 04/16/23 [place] [address] [place] [address] [address] [place] [address] PCP - General FAMILY PRACTICE 04/17/23 documented as of this encounter
--- OUTSIDE RECORDS SUMMARY | 2024-11-04 12:39 | XMS_ITS | Encounter Summary ---
Author Organization [facility] Address [address] [place] [address] Phone Care Team Providers Care Pet House Sitter Name Role Phone Geeta Crisostomo MD Primary Care Provider [phone] Gavin Gross MD Primary Care Provider [phone] Pawan Echevarria MD Primary Care Provider [phone] Encounter Details Date Type Department Care Team [...] on file Legal Sex Female 3:43 AM DOUBLER OPERATOR Gender Identity Female 02/01/2022 8:55 AM CDT [...] on filedocumented in this encounter Care Teams Pet House Sitter Relationship Specialty Start Date End Date Geeta Crisostomo MD [address] [place] [address] PCP - General Family Medicine 03/08/18 03/28/22 Gavin Gross MD [address] [place] [address] PCP - General Family Medicine 03/29/22 06/05/23 Pawan Echevarria MD [address] [place] [address] [place] [address] PCP - General Family Medicine 06/06/23 documented as of this encounter
--- OUTSIDE RECORDS SUMMARY | 2024-11-04 12:39 | XMS_ITS | Clinical Summary ---
Author Organization [facility] Address [facility] [place] [address] Care Team Providers Care Ring Conductor Name Role Phone Pawan Echevarria MD Primary Care Provider [phone] Allergies Active Allergy Reactions Criticality Noted Date Comments Ipratropium Unknown 07/04/2018 Levofloxacin Hallucinations Medium 10/06/2024 [place] Patient reported during admission 09/2024 after [...] (NEBULIZER/TUBING /MOUTHPIECE) KitIndications:Br onchiectasis without complication (CMS/HCC [facility]) 1 each by Does not apply route every 4 (four) hours as needed. 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) 03/05/2018 History of Pseudomonas pneumonia 01/27/2018 Pleural thickening 01/27/2018 Bacterial infection 12/13/2017 Chronic cough 12/10/2017 Asthma exacerbation ([facility]CC) 12/10/2017 Wheeze 12/10/2017 Resolved Problems Problem Noted Date Diagnosed Date Resolved Date Encounter for preventive health examination 11/07/2017 05/28/2020 Encounters Date Type Department Care Team Description 10/28/2024 Telephone [facility] [place] [address] [place] [phone] Naeem Grissom MD Results 10/24/2024 12:00 PM BRAND INSPECTOR Home Care Visit [facility] [address] [address] Juana Gonzalez RN SN OASIS DISCHARGE/ASSESSMENT 10/24/2024 Home Care Visit [address] [address] Juana Gonzalez RN [facility] OF CARE INTERDISCIPLINARY [place] 10/22/2024 11:30 AM BRAND INSPECTOR Home Care Visit [facility] [address] [address] Juana Gonzalez RN SN HOME VISIT 10/17/2024 9:45 AM BRAND INSPECTOR Home Care Visit [address] [address] Juana Gonzalez RN SN HOME VISIT 10/14/2024 1:30 PM BRAND INSPECTOR Home Care Visit [address] [address] Iris Chauhan od, LPN SN HOME VISIT 10/13/2024 4:00 PM BRAND INSPECTOR Home Care Visit [address] [phone] Olga Huertas, PT PT INITIAL EVALUATION 10/09/2024 10:30 AM BRAND INSPECTOR Home Care Visit [address] [phone] Juana Gonzalez RN SN OASIS START OF CARE 10/09/2024 Home Care Visit [facility] Home Care [address] [place] [address] [place] [address] Juana Gonzalez RN [facility] INTERDISCIPLINARY [place] 10/09/2024 Plan of Care Documentation [facility] [address] [place] [address] [place] [address] 10/08/2024 10:00 AM BRAND INSPECTOR Home Care Visit [facility] Care [address] [facility] [place] [address] [place] [address] Eveilne Newton RN SN NON ADMIT SOC 10/06/2024 11:45 AM BRAND INSPECTOR Home Care Visit [facility] Care [address] [facility] [place] [address] [place] [address] Denice Lizarraga RN LIAISON VISIT 10/03/2024 3:39 PM BRAND INSPECTOR - 10/08/2024 3:59 PM BRAND INSPECTOR Hospital Encounter [facility] [place] [address] Sarthak Hendrickson MD Alexander, Kaci M, Nelson High DO Suresh, Wolf Johnson MD Shortness Of Breath Discharge Disposition: Home with Home Health Care 10/03/2024 Travel 10/03/2024 MyChart Message [facility] [address] [facility] [place] [address] Naeem Grissom MD Fever/Shortness of Breath 09/22/2024 2:51 PM BRAND INSPECTOR - 09/22/2024 11:59 PM BRAND INSPECTOR Hospital Encounter [facility] [address] [place] [address] Naeem Grissom MD Snoring Discharge Disposition: Home or Self Care (Routine Discharge) 09/22/2024 Travel 09/11/2024 10:20 AM BRAND INSPECTOR [facility] [address] [facility] [address] [facility] [place] [address] Naeem Grissom MD Follow Up (Was at [facility] 08/2024 for UTI (had EKG and CXR [...] materials from doctor or pharmacy Never 10/24/2024 [facility] Utilities Answer Date Recorded In the past 12 months has th e [employer], oil, or water [employer] threatened to shut off services in your [...] and Family Not on file 10/04/2024 Attends Confucianist Services Not on file 10/04 Active Member [...] Recorded Patient Health Questionnaire-2 Score 2 12/05/2022 [facility] Answer Date [...] any time in the past 12 m [facility], were you homeless or living in a penitentiary (including now)? 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 2:27 PM BRAND INSPECTOR Legal Sex Female 4:16 PM CDT Gender Identity Not on file Sexual Orientation Not on file Last Filed Vital Signs Vital Sign Reading Time Taken Comments Blood Pressure 112/54 10/24/2024 12:28 PM BRAND INSPECTOR Pulse 78 10/24/2024 12:28 PM BRAND INSPECTOR Temperature 36.6 C (97.9 F) 10/14/2024 1:35 PM BRAND INSPECTOR Respiratory Rate 20 10/24/2024 12:28 PM BRAND INSPECTOR Oxygen Saturation 93% 10/24/2024 12:28 PM BRAND INSPECTOR Inhaled Oxygen Concentration - - Weight 59 kg (130 lb) 10/24/2024 12:28 PM BRAND INSPECTOR Height 162.6 cm (5' 4 ) 10/03/2024 8:42 PM BRAND INSPECTOR Body Mass Index 22.31 10/03/2024 8:42 PM BRAND INSPECTOR Plan of Treatment Upcoming Encounters Date Type Department Care Team (Late st Contact Info) Description 01/14/2025 11:40 AM CDT Office Visit [facility] Medical Group Multispecialty Care - [address] [place] [phone] Naeem Grissom MD [address] [place] [address] [place] [id number] Health Maintenance Due Date Last Done Comments [...] 10/26/2020 Influenza Adult (#1) 2024 PHQ-2 (Physician [employer]) 09/17/2024 10/25/2023 Meningococcal B Vaccine Aged Out [...] HOME O2 EVAL Routine 10/08/2024 11:26 AM BRAND INSPECTOR CBC W/DIFF AUTOMATED Routine 10/08/2024 5:46 AM BRAND INSPECTOR BASIC METABOLIC PANEL Routine 10/08/2024 5:46 AM BRAND INSPECTOR CBC W/DIFF AUTOMATED Routine 10/07/2024 6:07 AM BRAND INSPECTOR BASIC METABOLIC PANEL Routine 10/07/2024 6:07 AM BRAND INSPECTOR CBC W/DIFF AUTOMATED Routine 10/06/2024 6:13 AM BRAND INSPECTOR BASIC METABOLIC PANEL Routine 10/06/2024 6:13 AM BRAND INSPECTOR CBC W/DIFF AUTOMATED Routine 10/05/2024 8:03 AM BRAND INSPECTOR BASIC METABOLIC PANEL Routine 10/05/2024 8:03 AM BRAND INSPECTOR CULTURE RESPIRATORY W/ GRAM STAIN STAT 10/04/2024 1:32 PM BRAND INSPECTOR CULTURE, TB/AFB W/ STAIN STAT 10/04/2024 1:32 PM BRAND INSPECTOR COMPREHENSIVE METABOLIC PANEL STAT 10/04/2024 6:00 AM BRAND INSPECTOR CBC W/DIFF AUTOMATED STAT 10/04/2024 6:00 AM BRAND INSPECTOR RESPIRATORY PCR PANEL 2 STAT 10/04/2024 1:12 AM BRAND INSPECTOR HC MYCOPLASMA AB-90 Routine 10/04/2024 1 2:31 AM BRAND INSPECTOR CULTURE, BACTERIA, BLOOD STAT 10/03/2024 11:10 PM BRAND INSPECTOR ECG 12-LEAD STAT 10/03/2024 4:49 PM BRAND INSPECTOR CULTURE RESPIRATORY W/ GRAM STAIN STAT 10/03/2024 4:27 PM BRAND INSPECTOR INFLUENZA A & B STAT 10/03/2024 4:27 PM BRAND INSPECTOR CORONAVIRUS (COVID 19) STAT 4:27 PM BRAND INSPECTOR LEGIONELLA AG URINE STAT 10/03/2024 4 :15 PM BRAND INSPECTOR HC INFECT AGENT DETECT OPTICAL STAT 10/03/2024 4:15 PM BRAND INSPECTOR TSH W/REFLEX Routine 10/03/2024 4:15 PM BRAND INSPECTOR PHOSPHORUS, INORGANIC PHOSPHATE Routine 10/03/2024 4:15 PM BRAND INSPECTOR MAGNESIUM Routine 10/03/2024 4:15 PM BRAND INSPECTOR PROCALCITONIN (PCT) STAT 10/03/2024 4 :15 PM BRAND INSPECTOR URINALYSIS, AUTO, COMPLETE STAT 10/03/2024 4:15 PM BRAND INSPECTOR COMPREHENSIVE METABOLIC PANEL STAT 10/03/2024 4:15 PM BRAND INSPECTOR CBC W/DIFF AUTOMATED STAT 10/03/2024 4:15 PM BRAND INSPECTOR PRO-BRAIN NATRIURETIC PEPTIDE STAT 10/03/2024 4:15 PM BRAND INSPECTOR TROPONIN, QUANT STAT 10/03/2024 4:15 PM BRAND INSPECTOR BLOOD GAS, ARTERIAL LAB STAT 10/03/2024 4:05 PM BRAND INSPECTOR XR CHEST PA+LAT STAT 10/03/2024 3:05 PM BRAND INSPECTOR HOME SLEEP STUDY - WATCHPAT Routine 09/22/2024 3:00 PM BRAND INSPECTOR Snoring from Last 3 Months Results * (ABNORMAL) BASIC METABOLIC PANEL (10/08/2024 5:46 AM BRAND INSPECTOR) Only the most recent of4 resultswithin the time period is included. [facility] GLUCOSE 84 70 - 99 MG/DL 10/08/2024 9:39 AM [facility] BUN 19(H) 7 - 18 MG/DL 10/08/2024 9:39 AM [facility] CREATININE S/P/B 0.58 0.55 - 1.02 MG/DL 10/08/2024 9:[address] [facility] SODIUM S/P/B 134(L) 136 - 145 MMOL/L 10/08/2024 9:39 AM [facility] POTASSIUM S/P/B 4.0 3.5 - 5.1 MMOL/L 10/08/2024 9:[address] [facility] CHLORIDE S/P/B 102 97 - 115 MMOL/L 10/08/2024 9:[address] [facility] CO2 29.0 21 - 32 MMOL/L 10/08/2024 9:39 AM [facility] CALCIUM S/P/B 8.6 8.5 - 10.1 MG/DL 10/08/2024 9:39 AM [facility] ANION GAP 3.0 2 - 10 MMOL/L 10/08/2024 9:39 AM [facility] BUN CREATININE RATIO 32.9(H) 6 - 26 10/08/2024 9:[address] [facility] GFR ESTIMATE 90(L) >90 ML/MIN/1.7 3 M2 10/08/2024 9:39 AM [facility] Comment: NOTE: eGFR is not calculated for patients <18 years of age or gender unknown. This is an estimated GFR calculation using the new CKD EPI creatinine equation without race and so does not require a correction factor for race. This estimated GFR should not be used for calculating drug doses. 10/08/2024 5:46 AM BRAND INSPECTOR us Wolf Turner MD LABORATORY Final R esult [facility] [address] [place] [address], [place] [phone] * (ABNORMAL) CBC W/DIFF AUTOMATED (10/08/2024 5:46 AM BRAND INSPECTOR) Only the most recent of6 resultswithin the time period is included. WBC 4.27(L) 4.5 - 11.0 x10'3/uL 10/08/2024 6:40 AM [facility] RBC 4.40 4.20 - 5.40 x10'6/uL 10/08/2024 6:40 AM [facility] HGB 12.5 12.0 - 16.0 G/DL 10/08/2024 6:40 AM [facility] HCT 39.2 38.0 - 48.0 % 10/08/2024 6:[address] [facility] MCV 89.1 81.0 - 99.0 FL 10/08/2024 6:40 AM [facility] MCH 28.4 27.0 - 31.0 PG 10/08/2024 6:40 AM [facility] MCHC 31.9(L) 32.0 - 36.0 G/DL 10/08/2024 6:40 AM [facility] RDW 13.0 11.5 - 14.5 % 10/08/2024 6:40 AM [facility] PLT 180 130 - 400 x10'3/uL 10/08/2024 6:40 AM [facility] MPV 10.2 9.3 - 12.2 FL 10/08/2024 6:40 AM [facility] DIFFERENTIAL TYPE AUTOMATED DIFFERENTIAL 10/08/2024 6:40 AM [facility] NEUTROPHILS % 57.7 % 10/08/2024 6:40 AM [facility] LYMPHOCYTES % 28.8 % 10/08/2024 6:40 AM [facility] MONOCYTES % 13.1 % 10/08/2024 6:40 AM [facility] EOSINOPHILS 0.0 % 10/08/2024 6:40 AM [facility] BASOPHILS 0.2 % 10/08/2024 6:40 AM [facility] IMMATURE GRANS % 0.2 % 10/08/19 6:40 AM [facility] ABS. NEUTROPHILS 2.46 1.80 - 7.70 x10'3/uL 10/08/2024 6:40 AM [facility] ABS. LYMPHOCYTES 1.23 1.00 - 4.80 x10'3/uL 10/08/2024 6:40 AM [facility] ABS. MONOCYTES 0.56 0.24 - 0.86 x10'3/uL 10/08/2024 6:40 AM [facility] ABS. EOSINOPHILS 0.00(L) 0.04 - 0.36 x10'3/uL 10/08/2024 6:[address] [facility] ABS. BASOPHILS 0.01 0.01 - 0.08 x10'3/uL 10/08/2024 6:[address] [facility] ABS. IMMATURE GRANULOCYTES 0.01 0.00 - 0.49 x10'3/uL 10/08/2024 6:[address] [facility] 10/08/2024 5:46 AM BRAND INSPECTOR us Wolf Turner MD LABORATORY Final R esult [facility] [address] [place] [address], [place] [phone] * (ABNORMAL) CULTURE RESPIRATORY W/ GRAM STAIN (10/04/2024 1:32 PM BRAND INSPECTOR) Only the most recent of2 resultswithin the time period is included. SPEC DESCRIPTION SPUTUM, EXPECTORATED 10/04/2024 1:32 PM [facility] SPECIAL REQUESTS NO SPECIAL REQUEST 10/04/2024 1:32 PM [facility] GRAM STAIN RESULT MODERATE WHITE BLOOD CELLS SEEN 10/05/2024 10:17 AM [facility] GRAM STAIN RESULT FEW MIXED BACTERIAL NIKOLE 10/05/2024 10:17 AM [facility] CULTURE RESULT SPARSE GROWTH OF PSEUDOMONAS AERUGINOSA SUSCEPTIBILITY ON PREVIOUS SPECIMEN [id number] NOTE: ORGANISM MAY DEVELOP RESISTANCE AFTER 3 TO 4 DAYS OF THERAPY WITH THIRD GENERATION CEPHALOSPORINS. TESTING OF REPEAT ISOLATES MAY BE WARRANTED. (A) 10/06/2024 8:[address] [facility] CULTURE RESULT LIGHT GROWTH OF NORMAL NIKOLE PRESENT 10/06/2024 8:37 AM [facility] SPUTUM SPECIMEN / Unknown 10/04/2024 1:32 PM BRAND INSPECTOR 10/04/2024 1:46 PM BRAND INSPECTOR us Robin Garcia DO MICROBIOLOGY - GENERAL ORD ERABLES Final Result [facility] [address] [place] [address], [place] [phone] * (ABNORMAL) COMPREHENSIVE METABOLIC PANEL (10/04/2024 6:00 AM BRAND INSPECTOR) Only the most recent of2 resultswithin the time period is included. [facility] GLUCOSE 119(H) 70 - 99 MG/DL 10/04/2024 6:37 AM [facility] BUN 17 7 - 18 MG/DL 10/04/2024 6:37 AM [facility] CREATININE S/P/B 0.72 0.55 - 1.02 MG/DL 10/04/2024 6:37 AM [facility] SODIUM S/P/B 133(L) 136 - 145 MMOL/L 10/04/2024 6:37 AM [facility] POTASSIUM S/P/B 4.0 3.5 - 5.1 MMOL/L 10/04/2024 6:37 AM [facility] CHLORIDE S/P/B 102 97 - 115 MMOL/L 10/04/2024 6:37 AM [facility] CO2 25.8 21 - 32 MMOL/L 10/04/2024 6:37 AM [facility] CALCIUM S/P/B 8.7 8.5 - 10.1 MG/DL 10/04/2024 6:37 AM [facility] BILIRUBIN TOTAL S/P/B 0.3 0.2 - 1.2 MG/DL 10/04/2024 6:37 AM [facility] Comment: THIS ASSAY IS NOT RECOMMENDED FOR PATIENTS UNDERGOING TREATMENT WITH ELTROMBOPAG DUE TO THE POTENTIAL FOR FALSELY ELEVATED RESULTS. TOTAL PROTEIN S/P/B 6.5 6.4 - 8.2 G/DL 10/04/2024 6:37 AM [facility] ALBUMIN S/P/B 3.1(L) 3.4 - 5.0 G/DL 10/04/2024 6:37 AM [facility] AST 13(L) 15 - 37 U/L 10/04/2024 6:37 AM [facility] ALT 19 14 - 55 U/L 10/04/2024 6:37 AM [facility] ALKALINE PHOSPHATASE S/P/B 49(L) 50 - 136 U/L 10/04/2024 6:37 AM [facility] ANION GAP 5.2 2 - 10 MMOL/L 10/04/2024 6:37 AM [facility] BUN CREATININE RATIO 23.7 6 - 26 10/04/2024 6:37 AM [facility] A/G RATIO 0.9(L) 1.0 - 2.0 RATIO 10/04/2024 6:37 AM [facility] GFR ESTIMATE 83(L) >90 ML/MIN/1.7 3 M2 10/04/2024 6:37 AM [facility] Comment: NOTE: eGFR is not calculated for patients <18 years of age or gender unknown. This is an estimated GFR calculation using the new CKD EPI creatinine equation without race and so does not require a correction factor for race. This estimated GFR should not be used for calculating drug doses. 10/04/2024 6:00 AM BRAND INSPECTOR us Lilibeth Manzano INDEPENDENT LIVING SPECIALIST LABORATORY Final Resul t [facility] [address] [place] [address], * (ABNORMAL) RESPIRATORY PCR PANEL 2 (10/04/2024 1:12 AM BRAND INSPECTOR) [facility] ADENOVIRUS PCR (RESP) NOT DETECTED NOT DETECTED 10/04/2024 3:19 AM [facility] CORONAVIRUS 229E PCR (RESP) NOT DETECTED NOT DETECTED 10/04/2024 3:19 AM [facility] CORONAVIRUS HKU1 PCR (RESP) NOT DETECTED NOT DETECTED 10/04/2024 3:19 AM [facility] CORONAVIRUS NL63 PCR (RESP) NOT DETECTED NOT DETECTED 10/04/2024 3:19 AM [facility] CORONAVIRUS OC43 PCR (RESP) NOT DETECTED NOT DETECTED 10/04/2024 3:19 AM [facility] METAPNEUMOVIRUS PCR (RESP) NOT DETECTED NOT DETECTED 10/04/2024 3:19 AM [facility] RHINOVIRUS/ENTEROV IRUS PCR (RESP) NOT DETECTED NOT DETECTED 10/04/2024 3:19 AM [facility] INFLUENZA A/H1-2009 PCR (RESP) DETECTED(A) NOT DETECTED 10/04/2024 3:19 AM [facility] INFLUENZA B PCR (RESP) NOT DETECTED NOT DETECTED 10/04/2024 3:19 AM [facility] PARAINFLUENZA 1 PCR (RESP) NOT DETECTED NOT DETECTED 10/04/2024 3:19 AM [facility] PARAINFLUENZA 2 PCR (RESP) NOT DETECTED NOT DETECTED 10/04/2024 3:19 AM [facility] PARAINFLUENZA 3 PCR (RESP) NOT DETECTED NOT DETECTED 10/04/2024 3:19 AM [facility] PARAINFLUENZA 4 PCR (RESP) NOT DETECTED NOT DETECTED 10/04/2024 3:19 AM [facility] RSV PCR (RESP) NOT DETECTED NOT DETECTED 10/04/2024 3:[address] [facility] B PARAPERTUSIS PCR (RESP) NOT DETECTED NOT DETECTED 10/04/2024 3:[address] [facility] BORDETELLA PERTUSSIS PCR (RESP) NOT DETECTED NOT DETECTED 10/04/2024 3:[address] [facility] CHLAMYDOPHILA PNEUMONIAE PCR (RESP) NOT DETECTED NOT DETECTED 10/04/2024 3:[address] [facility] MYCOPLASMA PNEUMONIAE PCR (RESP) NOT DETECTED NOT DETECTED 10/04/2024 3:[address] [facility] CORONAVIRUS SARS COV 2 PCR (RESP) NOT DETECTED NOT DETECTED 10/04/2024 3:[address] [facility] NASOPHARYNGEAL SWAB / Unknown 10/04/2024 1:12 AM BRAND INSPECTOR Lilibeth Manzano INDEPENDENT LIVING SPECIALIST MICROBIOLOGY - GENERAL JAI SKELTON Final Result [address] [address], * (ABNORMAL) MYCOPLASMA PNEUMONIAE AB (10/04/2024 12:31 AM BRAND INSPECTOR) M. PNEUMONIAE AB IGG 1.65(H) <=0.90 10/08/2024 5:20 PM BRAND INSPECTOR [employer] [facility] Comment: Reference Range: <=0.90 Negative 0.91-1.09 Equivocal >=1.10 Positive A positive IgG result indicates that the patient has antibody to Mycoplasma. It does not differentiate between an active or past infection. The clinical diagnosis must be interpreted in conjunction with the clinical signs and symptoms of the patient. M. PNEUMONIAE AB IGM 25 <770 U/mL 10/08/2024 5:20 PM BRAND INSPECTOR [employer] [facility] [place] Comment: Reference Range: <770 [...] symptoms of the patient. Test Performed by [facility], [employer] [facility], [address] [place] [address] Cj Dallas M.D., Ph.D., Director of Laboratories , CLIA [id number] 10/04/2024 12:3 1 AM BRAND INSPECTOR Lilibeth Manzano APRN LABORATORY Final Resul t Performing Organization Address City/[facility]/ZIP Co de Phone Number [employer] [address] [address], [place] [phone] * CULTURE BACTERIA, BLOOD (10/03/2024 11:10 PM BRAND INSPECTOR) SPEC DESCRIPTION BLOOD 10/03/2024 4:[address] [facility] SPECIAL REQUESTS NO SPECIAL REQUEST 10/03/2024 4:[address] [facility] CULTURE RESULT NO GROWTH 5 DAYS 10/08/2024 10:[address] [facility] BLOOD SPECIMEN OBTAINED FOR BLOOD CULTURE / Unknown 10/03/2024 11:10 PM BRAND INSPECTOR 10/03/2024 11:15 PM BRAND INSPECTOR Sarthak Hendrickson MD MICROBIOLOGY - GENERAL ORDERABL ES Final Result [facility] [address] [place] [address], * ECG 12 lead (10/03/2024 4:49 PM BRAND INSPECTOR) 10/03/2024 4:49 PM BRAND INSPECTOR Narrative [facility] RAD - 10/04/2024 5:10 AM BRAND INSPECTOR [place] Test Date: 2024-10-03 Pat Name: HERIBERTO MITCHELLTON Department: 41 Room: EXAM10 Gender: Female Student Outreach Coordinator: CC : 1940 Requested By: BRANDI ACEVES Order Number: [id number] Reading MD: Danny Bee Measurements Intervals Hunter Rate: 114 P: 95 OK: 169 QRS: 40 QRSD: 119 T: 138 QT: 322 QTc: 445 Interpretive Statements SINUS TACHYCARDIA WITH FREQUENT VENTRICULAR PREMATURE COMPLEXES Baseline artifact limits interpretation D INSPECTOR Procedure Note Danny Bee MD - 10/04/[address] [place] Test Date: 2024-10-03 Pat Name: HERIBERTO LA PUSH Department: 41 Room: EXAM10 Gender: Female Student Outreach Coordinator: CC : 1940 Requested By: BRANDI ACEVES Order Number: [id number] Reading MD: Danny Bee Measurements Intervals Hunter Rate: 114 P: 95 OK: 169 QRS: 40 QRSD: 119 T: 138 QT: 322 QTc: 445 Interpretive Statements SINUS TACHYCARDIA WITH FREQUENT VENTRICULAR PREMATURE COMPLEXES Baseline artifact limits interpretation D INSPECTOR us Brandi CANELA ECG ORDERABLES Final Resu lt [facility] * CORONAVIRUS (COVID 19) (10/03/2024 4:27 PM BRAND INSPECTOR) CORONAVIRUS SARS COV 2 RNA NEGATIVE NEGATIVE 10/03/2024 5:[address] [facility] Comment: NEGATIVE RESULTS DO NOT [...] SARS-COV-2. SPECIMEN TYPE NASAL 10/03/2024 4:[address] [facility] NASAL STRUCTURE / Unknown 10/03/2024 4:27 PM BRAND INSPECTOR us Sarthak Hendrickson MD MICROBIOLOGY - GENERAL ORDERABL ES Final Result [facility] [address] [place] [address], * INFLUENZA A & B (10/03/2024 4:27 PM BRAND INSPECTOR) SPECIMEN TYPE NASAL 10/03/2024 4:[address] [facility] INFLUENZA A NEGATIVE NEGATIVE 10/03/2024 5:[address] [facility] INFLUENZA B NEGATIVE NEGATIVE 10/03/2024 5:[address] [facility] Comment: Interpretation: Negative for Influenza [...] NASOPHARYNGEAL SWAB / Unknown 10/03/2024 4:27 PM BRAND INSPECTOR Sarthak Hendrickson MD MICROBIOLOGY - GENERAL ORDERABL ES Final Result Performing Organization Address [facility] de Phone Number [facility] [address] [place] [phone], * PROCALCITONIN (PCT) (10/03/2024 4:15 PM BRAND INSPECTOR) Procalcitonin <0.05 0.00 - 0.49 NG/ML 10/03/2024 5:[address] [facility] 10/03/2024 4:15 PM BRAND INSPECTOR Brandi Aceves PA LABORATORY Final Resu lt Performing Organization Address [facility] de Phone Number [facility] [address] [place] [phone], * TSH W/REFLEX (10/03/2024 4:15 PM BRAND INSPECTOR) TSH 0.922 0.358 - 3.74 uIU/ML 10/04/2024 1:[address] [facility] Comment: HIGH DOSES OF BIOTIN MAY INTERFERE WITH THIS TEST RESULT. CORRELATION TO CLINICAL HISTORY AND PRESENTATION RECOMMENDED. FREE T4 NOT INDICATED 10/03/2024 4:15 PM BRAND INSPECTOR Lilibeth Manzano APRN LABORATORY Final Resul t Performing Organization Address [facility] Co de Phone Number [facility] [address] [place] [phone], * (ABNORMAL) PRO-BRAIN NATRIURETIC PEPTIDE (10/03/2024 4:15 PM BRAND INSPECTOR) PRO-B TYPE NATRIURETIC PEPTIDE 1,925(H) <450 PG/ML 10/03/2024 5:[address] [facility] Comment: CUT POINTS ESTABLISHED BY [...] 72% FOR ACUTE CHF. 10/03/2024 4:15 PM BRAND INSPECTOR Brandi Aceves PA LABORATORY Final Resu lt Performing Organization Address [place]/[facility]/ZIP Co de Phone Number [facility] [address] [place], [place] [address], [place] [phone] * STREP PNEUMO AG URINE (10/03/2024 4:15 PM BRAND INSPECTOR) S. PNEUMONIAE URINARY AG NEGATIVE NEGATIVE 10/04/2024 12:04 PM BRAND INSPECTOR [facility] URINE SPECIMEN OBTAINED BY CLEAN CATCH PROCEDURE / Unknown 10/03/2024 4:15 PM BRAND INSPECTOR Lilibeth Manzano APRN MICROBIOLOGY - GENERAL ORDE NAFISA Final Result [facility] [address] [place] [address], [place] [phone] * LEGIONELLA AG URINE (10/03/2024 4:15 PM BRAND INSPECTOR) LEGIONELLA ANTIGEN (URINE) NEGATIVE NEGATIVE 10/04/2024 12:04 PM BRAND INSPECTOR [facility] URINE SPECIMEN / Unknown 10/03/2024 4:15 PM BRAND INSPECTOR us Lilibeth Manzano APRN MICROBIOLOGY - GENERAL JAI SKELTON Final Result [facility] ([facility] [address] [place] [address], [place] [phone] * URINALYSIS, AUTO, COMPLETE (10/03/2024 4:15 PM BRAND INSPECTOR) SPECIMEN TYPE URINE CLEAN CATCH 10/03/2024 4:[address] [facility] COLOR (U) LIGHT YELLOW 10/03/2024 5:[address] [facility] TRANSPARENCY CLEAR 10/03/2024 5:[address] [facility] SPECIFIC GRAVITY (U) 1.009 1.001 - 1.030 10/03/2024 5:[address] [facility] U PH 6.5 5.0 - 9.0 10/03/2024 5:13 PM [facility] LEUKOCYTES (U) NEGATIVE NEGATIVE 10/03/2024 5:13 PM [facility] NITRITES NEGATIVE NEGATIVE 10/03/2024 5:13 PM [facility] PROTEIN RANDOM (U) NEGATIVE <30 MG/DL 10/03/2024 5:13 PM [facility] GLUCOSE (U) NORMAL NORMAL MG/DL 10/03/2024 5:13 PM [facility] KETONES MG/DL (U) NEGATIVE NEGATIVE MG/DL 10/03/2024 5:13 PM [facility] UROBILINOGEN NORMAL NORMAL MG/DL 10/03/2024 5:13 PM [facility] BILIRUBIN (U) NEGATIVE NEGATIVE MG/DL 10/03/2024 5:13 PM [facility] BLOOD (U) NEGATIVE NEGATIVE 10/03/2024 5:[address] [facility] WBC/HPF 2 <6 /HPF 10/03/2024 5:[address] [facility] RBC/HPF 2 <6 /HPF 10/03/2024 5:[address] [facility] URINE SPECIMEN OBTAINED BY CLEAN CATCH PROCEDURE / Unknown 10/03/2024 4:15 PM BRAND INSPECTOR Brandi CANELA URINE ORDERABLES Final Res ult Performing Organization Address City/[facility]/ZIP Co de Phone Number [facility] [address] [place] [address], [place] [phone] * TROPONIN, QUANT (10/03/2024 4:15 PM BRAND INSPECTOR) TROPONIN I HIGH SENSITIVITY 44 <54 ng/L 10/03/2024 5:[address] [facility] Comment: HIGH DOSES OF BIOTIN, TROPONIN-SPECIFIC AUTOANTIBODIES, AND ANTIBODY THERAPY CONTAINING HAMA MAY INTERFERE WITH THIS TEST RESULT. CORRELATION TO CLINICAL HISTORY AND PRESENTATION RECOMMENDED. 10/03/2024 4:15 PM BRAND INSPECTOR Brandi CANELA LABORATORY Final Resu lt Performing Organization Address City/[facility]/ZIP Co de Phone Number [facility] [address] [place] [address], [place] [phone] * PHOSPHORUS, INORGANIC PHOSPHATE (10/03/2024 4:15 PM BRAND INSPECTOR) PHOSPHORUS 3.4 2.5 - 4.9 MG/DL 10/04/2024 1:[address] [facility] 10/03/2024 4:15 PM BRAND INSPECTOR Lilibeth Manzano INDEPENDENT LIVING SPECIALIST LABORATORY Final Resul t Performing Organization Address City/[facility]/ZIP Co de Phone Number [facility] [address] [place] [address], [place] [phone] * MAGNESIUM (10/03/2024 4:15 PM BRAND INSPECTOR) MAGNESIUM 2.3 1.8 - 2.4 MG/DL 10/04/2024 1:[address] [facility] Comment:SLIGHT HEMOLYSIS, RE SULT MAY BE AFFECTED. 10/03/2024 4:15 PM BRAND INSPECTOR Lilibeth Manzano INDEPENDENT LIVING SPECIALIST LABORATORY Final Resul t Performing Organization Address [facility] Co de Phone Number [facility] [address] [place] [address], [place] [phone] * (ABNORMAL) ARTERIAL BLOOD GAS (10/03/2024 4:05 PM BRAND INSPECTOR) PH ARTERIAL 7.49(H) 7.35 - 7.45 10/03/2024 4:[address] [facility] PCO2 33.0(L) 35.0 - 45.0 MMHG 10/03/2024 4:[address] [facility] PO2 90.0 83.0 - 108.0 MMHG 10/03/2024 4:[address] [facility] TOTAL CO2 ARTERIAL 26.1(H) 19.0 - 24.0 MMOL/L 10/03/2024 4:[address] [facility] BASE EXCESS 2.2 0.0 - 3.0 MMOL/L 10/03/2024 4:15 PM [facility] O2 SATURATION 98 94.0 - 98.0 % 10/03/2024 4:15 PM [facility] BICARB ARTERIAL 25.1 21.0 - 28.0 MMOL/L 10/03/2024 4:[address] [facility] CHANDAN TEST CHANDAN TEST PERFORMED 10/03/2024 4:[address] [facility] O2 ADMIN ARTERIAL 28 10/03/2024 4:[address] [facility] DRAW SITE ARTERIAL RT RADIAL 10/03/2024 4:[address] [facility] 10/03/2024 4:05 PM BRAND INSPECTOR us Brandi CANELA LABORATORY Final Resu lt 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 Superimposed acute/active airway infection/inflammation is not excluded. Ordered By: BRANDI ACEVES Interpreted By: Sulema Pinto MD, 10/03/2024 3:12 PM Narrative 10/03/2024 3:[address] [facility] [address] [place], [place] [address] Examination: Chest x-ray 2 view Exam date/time: [...] Procedure Note Sulema Pinto MD - 10/03/[address] [address] Examination: Chest x-ray 2 view Exam date/time: [...] lt * Home Sleep Study - WatchPat ([id number]/[id number]) (09/22/2024 3:00 PM BRAND INSPECTOR) Narrative [facility] - 09/22/2024 3:00 PM BRAND INSPECTOR Diego Freeman MD 09/30/2024 10:28 AM Patient Information First Name: HERIBERTO Last Name: CHERYL ID: [id number] Date: 1940 Age: 84 Gender: Female BMI: [...] (Events per Minute): 4.8 Rev. Printed on:09/30/2024 09/22/2024,[id number],1940,Female *The automatic analysis events or stages have been edited. 539 Page 1 of 2 Sleep Study Report SUMMARY/DIAGNOSIS 1.) Mild Obstructive Sleep Apnea. 2.) Premature beats were noted and minimal atrial fibrillation was suspected during this study. RECOMMENDATIONS [place] treatment option should be discussed with the [...] snoring and other sleep-related issues, such as INSERTING MACHINE OPERATOR depressants, especially at bedtime. Raw data reviewed and electronically signed by: Diego Freeman on 09/30/2024 10:26:04 AM at 4:26:10PM, [facility] us Naeem Grissom MD SLEEP CENTER ORDERABLES Fin al Result Performing Organization Address City/State/[facility] Co de Phone Number [facility] [address] [place] [address], from Last 3 Months Insurance [employer] MEDICARE Advance Directives * Full Code (Latest Code Status on File) Date Activated Date Inactivated Comments 10/09/2024 3:14 PM * Full Code Date Activated Date Inactivated Comments 10/04/2024 12:11 AM 10/08/2024 6:04 PM Care Teams Ring Conductor Relationship Specialty Start Date End Date Pawan Echevarria MD [address] [facility] [address] [address] PCP - General FAMILY PRACTICE 04/17/23
--- OUTSIDE RECORDS SUMMARY | 2024-11-04 12:39 | XMS_ITS | Encounter Summary ---
Author Organization [facility] Address [address] [place] [address] Care Team Providers Care Hardware Sales Assistant Name Role Phone Gavin Gross MD Primary Care Provider [phone] Pawan Echevarria MD Primary Care Provider [phone] Encounter Details Date Type Department Care Team (Late Contact Info) Description 03/14/2023 MyChart Message Enc [facility] - [facility] [address] [place], [place] [address] [place] Provider Air Quality Message Social History Tobacco [...] Sex Assigned at Female 10/03/2024 2:27 PM PROP DRAWER Legal Sex Female 4:16 PM CDT Gender Identity Not on file Sexual Orientation Not on file documented as of this encounter Plan of Treatment Upcoming Encounters Date Type Department Care Team (Late Contact Info) Description 01/14/2025 11:40 AM CDT Office Visit [facility] Multispecialty Care - [facility] [address] [facility] [place] [address] Abdon Flynn MD [facility] [address] [place] [address] documented as of this encounter Visit Diagnoses Not on filedocumented in this encounter Additional Health Concerns Infection Onset Date Last Indicated Resolved Time COVID-19 Rule Out 10/03/2024 10/03/2024 10/03/2024 5:30 PM PROP DRAWER COVID-19 Rule Out 10/04/2024 10/04/2024 10/04/2024 3:19 AM PROP DRAWER Influenza - Seasonal 10/04/2024 10/04/2024 025 12:32 AM PROP DRAWER Assessment Noted Time PHQ-9 Depression Total Score: 0 12/13/19 22 11:54 AM CDT documented as of this encounter Care Teams Hardware Sales Assistant Relationship Specialty Start Date End Date Gavin Gross MD [address] [place] [address] PCP - General FAMILY PRACTICE 07/13/22 04/16/23 Pawan Echevarria MD [facility] [facility] [address] [place] [address] PCP - General FAMILY PRACTICE 04/17/23 documented as of this encounter
--- OUTSIDE RECORDS SUMMARY | 2024-11-04 12:39 | XMS_ITS | Clinical Summary ---
Author Organization [facility] Address [address] [place] [address] Care Team Providers Care Algologist Name Role Phone Pawan Echevarria MD Primary Care Provider [phone] Allergies Active Allergy Reactions Criticality Noted Date [...] STL ABSTRACTION Provider, Abstract 10/03/[address] [facility] Oncology and Hematology [address] [place] [phone] Warren Vaughn MD 10/02/[address] [facility] Oncology and Hematology [address] [place] [phone] Warren Vaughn MD from Last 3 Months [...] ANTIGEN 15-3 Routine 10/03/2024 2 :11 PM COLLAR FUSER CBC WITH DIFFERENTIAL Routine 10/01/2024 3:09 PM COLLAR FUSER COMPREHENSIVE METABOLIC PANEL Routine 10/01/2024 11:45 AM COLLAR FUSER from Last 3 Months Results * CANCER ANTIGEN 15-3 (10/03/2024 2:11 PM COLLAR FUSER) Blood us Warren Vaughn MD CHEMISTRY ORDERABLES Final Resu lt * CBC WITH DIFFERENTIAL (10/01/2024 3:09 PM COLLAR FUSER) Blood us Warren Vaughn MD HEMATOLOGY ORDERABLES Final Res ult * COMPREHENSIVE METABOLIC PANEL (10/01/2024 11:45 AM COLLAR FUSER) Blood us Warren Vaughn MD CHEMISTRY ORDERABLES Final Resu lt from Last 3 Months Insurance MEDICARE PART A AND B FOR LIFE Care Teams Algologist Relationship Specialty Start Date End Date Pawan Echevarria MD [address] [place] [phone] PCP - General Family Practice 11/29/23
--- OUTSIDE RECORDS SUMMARY | 2024-11-04 12:39 | XMS_ITS | Referral Summary ---
Author Organization [facility] Virtual Care Address [address] [place] [phone] Phone Care Team Providers Care Metal Burrer Name Role Phone Pawan Echevarria MD Primary Care Provider [phone] Encounters Date Type Department Care Team Description 10/01/2024 1:15 PM JEWELRY TECHNICIAN Office Visit [facility] Medical [facility]iology [address] [place] [address] [place] [phone] Damien Plaza MD Nonischemic cardiomyopathy (CMS/HCC) (HCC) (Primary Dx); PVC (premature ventricular contraction); Anxiety; Chronic hypoxic respiratory failure, on home oxygen therapy (HCC); YUNIOR (obstructive sleep apnea) 09/01/2024 Telephone [facility] Cardiology [address] [place] [address] [place] [phone] Heaven Rubin NP 08/29/2024 3:00 PM JEWELRY TECHNICIAN Ancillary Procedure [facility] Cardiology [address] [place] [address] [place] [phone] Nonischemic cardiomyopathy (CMS/HCC) (HCC) 08/26/2024 Telephone [facility] Cardiology [address] [place] [address] [place] [phone] Heaven Rubin NP Med Management 08/21/2024 Telephone [facility] Cardiology [address] [place] [address] [place] [phone] Heaven Rubin NP from Last 3 Months [...] CMP checked today. - Spoke with her assembler latches and springs, Dr. Abdon Flynn ([facility] Multispecialty Care [facility]), to discuss the possibility of sparing [...] 81 y.o. 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 8 COPD (chronic obstructive pulmonary [...] on file Legal Sex Female 3:43 AM JEWELRY TECHNICIAN Gender Identity Female 02/01/2022 8:55 AM CDT Sexual Orientation Straight 02/01/2022 8: 55 AM CDT Last Filed Vital Signs Vital Sign Reading Time Taken Comments Blood Pressure 150/68 10/01/2024 1:07 PM JEWELRY TECHNICIAN Pulse 56 10/01/2024 1:07 PM JEWELRY TECHNICIAN Temperature 36.9 C (98.5 F) 10/04/2022 11:40 AM JEWELRY TECHNICIAN Respiratory Rate 20 03/18/2024 11:5 3 AM CDT Oxygen Saturation 91% 10/01/2024 1:0 7 PM JEWELRY TECHNICIAN 2 Liters oxygen Inhaled Oxygen Concentration - - Weight 59.4 kg (131 lb) 10/01/2024 1:07 PM JEWELRY TECHNICIAN Height 162.6 cm (5' 4 ) 10/01/2024 1:07 PM JEWELRY TECHNICIAN Body Mass Index 22.49 10/01/2024 1:07 PM JEWELRY TECHNICIAN Plan of Treatment Not on file Procedures Procedure Name Priority Date/Time Associated Diagnosis Comments ELECTROCARDIOGRAM REPORT Routine 025 3:58 PM JEWELRY TECHNICIAN PVC (premature ventricular contraction) TRANSTHORACIC ECHO (TTE) LIMITED/FOLLOW UP WO DOPPLER/CF WO CONTRAST Routine 08/29/2024 3:55 PM JEWELRY TECHNICIAN Nonischemic cardiomyopathy (CMS/HCC) (HCC) from Last 3 Months Results * Electrocardiogram Report (10/01/2024 3:58 PM JEWELRY TECHNICIAN) Damien Plaza MD ECG ORDERABLES Final Result * TRANSTHORACIC ECHO (TTE) LIMITED/FOLLOW UP WO DOPPLER/CF WO CONTRAST (08/29/2024 3:55 PM JEWELRY TECHNICIAN) Anatomical Region Laterality Modality Ultrasound 08/29/2024 3:50 PM JEWELRY TECHNICIAN Narrative 08/29/2024 4:17 PM JEWELRY TECHNICIAN [facility] Medical Group Cardiology [address], [place] [address] [address], [place] [address] P:[phone] P:[phone] Echocardiographic Report Patient Name: HERIBERTO TEJEDA M : 1940 Study Date: 08/29/2024 3:50:42 PM Gender: F Tech: KELLEY Location: [facility] Provider: HEAVEN RUBIN Height(Cm): 163 BSA: [...] FINDINGS: Interpretation Site: Exam was interpreted at [facility]. Left Ventricle: Normal left ventricular size. Mild [...] By: Ish Vidal MD 08/29/2024 4:17:28 PM JEWELRY TECHNICIAN 40-45 Procedure Note Ish Vidal MD - 08/29/2024 [facility] Cardiology [address] [facility] [address], [place] [address] [address] [facility] [address], [place] [address] P:[phone] P:[phone] Echocardiographic Report Patient Name: HERIBERTO TEJEDA M : 1940 Study Date: 08/29/2024 3:50:42 PM Gender: F Tech: KELLEY Location: [facility] Provider: HEAVEN RUBIN Height(Cm): 163 BSA: [...] FINDINGS: Interpretation Site: Exam was interpreted at [facility]. Left Ventricle: Normal left ventricular size. Mild [...] By: Ish Vidal MD 08/29/2024 4:17:28 PM JEWELRY TECHNICIAN 40-45 Heaven Rubin NP CV ECHO PROCEDURES Final Result from Last 3 [place] [address] MEDICARE FOR LIFE MEDICARE FOR LIFE MEDICARE FOR LIFE Care Teams Metal Burrer Relationship Specialty Start Date End Date Pawan Echevarria MD [facility] [place] [address] PCP - General Family Medicine 06/06/23
--- OUTSIDE RECORDS SUMMARY | 2024-11-04 12:39 | XMS_ITS | Encounter Summary ---
Author Organization [facility] Address [facility] [place] [address] Care Team Providers Care Customer Counter Associate Name Role Phone Pawan Echevarria MD Primary Care Provider [phone] Encounter Details Date Type Department Care Team (Late st Contact Info) Description 10/03/2024 MyChart Message Enc [facility] Multispecialty Care - [facility] [address] [facility] [place] [phone] Abdon Flynn MD [address] [place], [place] [address] [address] [place] [address] Fever/Shortness of Breath Social History Tobacco Use Types Packs/Day Years Used Date Smoking Tobacco: Former Cigarettes 0.3 6 0 02/25/1974 - 02/26/1980 Smokeless Tobacco: Never Alcohol Use Standard Drinks/Week Comments Yes 0 (1 standard drink = 0.6 oz pur e alcohol) minimal rare use [facility] Utilities Answer Date Recorded In the [...] and Family Not on file 10/04/2024 Attends [employer] Not on file 10/04 Active Member [...] Recorded Patient Health Questionnaire-2 Score 2 12/05/2022 [facility] - [...] any time in the past 12 m [facility], were you homeless or living in a fpc (including now)? 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 2:27 PM TRAFFIC INVESTIGATOR Legal Sex Female 4:16 PM CDT Gender Identity Not on file Sexual Orientation Not on file documented as of this encounter Functional Status documented as of this encounter Mental Status * Question Answer Entry Date Author Status Because of a physical, mental, or emotional condition, do you have serious difficulty concentrating, remembering, or making decisions? No 10/04/2024 5:00 PM TRAFFIC INVESTIGATOR Nighat Prado R N Active documented in this encounter Plan of Treatment Upcoming Encounters Date Type Department Care Team (Late st Contact Info) Description 01/14/2025 11:40 AM CDT Office Visit [facility] Multispecialty Care - [facility] [address] [facility] [place] [phone] Abdon Flynn MD [address] [place] [address] [address] [place] [address] documented as of this encounter Visit Diagnoses Not on filedocumented in this encounter Additional Health Concerns Infection Onset Date Last Indicated Resolved Time COVID-19 Rule Out 10/03/2024 10/03/2024 10/03/2024 5:30 PM TRAFFIC INVESTIGATOR COVID-19 Rule Out 10/04/2024 10/04/2024 10/04/2024 3:19 AM TRAFFIC INVESTIGATOR Influenza - Seasonal 10/04/2024 10/04/2024 025 12:32 AM TRAFFIC INVESTIGATOR Assessment Noted Time PHQ-9 Depression Total Score: 0 12/13/19 22 11:54 AM CDT documented as of this encounter Care Teams Customer Counter Associate Relationship Specialty Start Date End Date Pawan Echevarria MD [address] [facility] [address] [address] PCP - General FAMILY PRACTICE 04/17/23 documented as of this encounter
== END 2024-11-04 12:34 | disposition home or self-care (01) ==
PROVIDERS: PCP Family Medicine; Visit Provider Nurse Practitioner Family
DX: S22.050A Wedge compression fracture of T5-T6 vertebra, initial encounter for closed fracture (principal); X58.XXXA Exposure to other specified factors, initial encounter; M43.8X4 Other specified deforming dorsopathies, thoracic region; M51.34 Other intervertebral disc degeneration, thoracic region
CPT/HCPCS: 72072; 72100

== ENCOUNTER 2024-11-06 11:38 | Outpatient (CLI) | payer MEDICARE, OTHER, SELFPAY ==
--- OUTSIDE RECORDS SUMMARY | 2024-11-06 11:55 | XMS_ITS | Encounter Summary ---
Author Organization [facility] Address [facility] [place] [address] Care Team Providers Care Insurance Sales Assistant Name Role Phone Pawan Echevarria MD Primary Care Provider [phone]- [phone] Encounter Details Date Type Department Care Team (Late st Contact Info) Description 10/03/2024 MyChart Message Enc [facility] Multispecialty Care - [facility] [address] [facility] [place] [phone] Abdon Flynn MD [address] [place], [place] [address] [address] [place] [address] Fever/Shortness of Breath Social History Tobacco Use Types Packs/Day Years Used Date Smoking Tobacco: Former Cigarettes 0.3 6 0 02/25/1974 - 02/26/1980 Smokeless Tobacco: Never Alcohol Use Standard Drinks/Week Comments Yes 0 (1 standard drink = 0.6 oz pur e alcohol) minimal rare use [facility] Utilities Answer Date Recorded In the [...] and Family Not on file 10/04/2024 Attends [employer] Not on file 10/04 Active Member [...] Recorded Patient Health Questionnaire-2 Score 2 12/05/2022 [facility] - Occupational [...] any time in the past 12 m [facility], were you homeless or living in a correction (including now)? 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 2:27 PM EMAIL ENGINEER Legal Sex Female 4:16 PM CDT Gender Identity Not on file Sexual Orientation Not on file documented as of this encounter Functional Status documented as of this encounter Mental Status * Question Answer Entry Date Author Status Because of a physical, mental, or emotional condition, do you have serious difficulty concentrating, remembering, or making decisions? No 10/04/2024 5:00 PM EMAIL ENGINEER Nighat Prado R N Active documented in this encounter Plan of Treatment Upcoming Encounters Date Type Department Care Team (Late st Contact Info) Description 01/14/2025 11:40 AM CDT Office Visit [facility] - [facility] [address] [facility] [place] [phone] Abdon Flynn MD [address] [place] [address] [address] [place] [address] documented as of this encounter Visit Diagnoses Not on filedocumented in this encounter Additional Health Concerns Infection Onset Date Last Indicated Resolved Time COVID-19 Rule Out 10/03/2024 10/03/2024 10/03/2024 5:30 PM EMAIL ENGINEER COVID-19 Rule Out 10/04/2024 10/04/2024 10/04/2024 3:19 AM EMAIL ENGINEER Influenza - Seasonal 10/04/2024 10/04/2024 025 12:32 AM EMAIL ENGINEER Assessment Noted Time PHQ-9 Depression Total Score: 0 12/13/19 22 11:54 AM CDT documented as of this encounter Care Teams Insurance Sales Assistant Relationship Specialty Start Date End Date Pawan Echevarria MD [address] [facility] [address] [address] PCP - General FAMILY PRACTICE 04/17/23 documented as of this encounter
--- OUTSIDE RECORDS SUMMARY | 2024-11-06 11:55 | XMS_ITS | Data Portability ---
Author Organization [facility], Telehealth (patients home) Address [address] [place] [address] Assessment Encounter Date Assessment Date Assessment LastModified by Organization Details LastModified Time 08/28/2023 08/28/2023 Patient evaluated for depressive and anxiety disorder. History and exam indicate MDD/ RD. I recommend restarting zoloft 25mg daily. Discussed goals of treatment and effectiveness of current treatment. Discussed follow up and orders indicated below. FAce to face 90 minutes [email or web address] Not available 08/28/2023 22:09:45 09/03/2024 09/03/2024 Met with Nora today for follow up on her mod MDD and RD PHQ9=10 GAD7= 13 mod [email or web address] Not available 09/03/2024 20:31:20 10/01/2024 10/01/2024 Met with Nora oden to follow-up on Zoloft PHQ-[address]-7 15 severe Not available 10/01/2024 13:30:17 Plan of Treatment Reminders Order Date Submit Date Provider Last Modified By Organization Details Last Modified Time Details Appointments Psychiatr ic Follow up 2024 01:00P Abril Neumann Not available Not available Not available Lab None recorded. Referral None recorded. Procedures None recorded. Surgeries None recorded. Imaging None recorded. Medication Orders Zoloft 50 mg tablet 2024 025 [facility][id number], [address] [facility] [place] [facility], [place], [place], [id number], 10/01/2024 13:29:57 Zoloft 50 mg tablet 2023 024 [id number], [address] [place] [address], [place], [place], [id number], 09/03/2024 15:01:16 Zoloft 50 mg tablet 2022 024 [facility] #[id number], [address] [facility] [address] [place] [facility], [place], [place], [id number], 09/03/2024 14:31:19 Zoloft 25 mg tablet 2022 023 [id number], [address] [facility] [address] [facility], [place], [place], [id number], 09/03/2024 14:30:55 Patient TargetsNo targets recorded. Patient Instructions Encounter Date Encounter Id Patient Instructions Last Modified By Organization Details Last Modified Time 08/28/2023 [id number] recommend returning to therapy May benefit from grief support groups. rtc 2 weeks Not available 08/28/2023 16:21:39 Reason for Referral None Reported. Problems Name Problem SNOMED Code Status Onset Date Resolution Date Notes Provider Name and Address Organization Details Recorded Time Generalized anxiety disorder 74204992 Active 2022 Sel[facility] Neumann CNM, [facility] [address], [place], [address], [facility] 16:13:02 Anxiety 91516904 Active 2022 Selam Neumann CNM, [facility] [address], [place], [address], [facility] 13:22:24 Mild recurrent major depression 92977203 Active 2022 Selam Neumann CNM, [facility] [address], [place], [address], [facility] 13:22:45 Increased blood pressure 09760601 Active 2024 Selam Neumann CNM, [facility] [address], [place], [address], [facility] 5 13:28:28 Depressive disorder 41405274 Active 2022 [facility] 3 14:08:50 Bronchiectasi s 54672637 Active 2022 [facility] 3 14:15:47 Moderate recurrent major depression 26061184 Active 2022 Selam Neumann CNM, [facility] [address], [place], [address], [facility] 3 16:12:57 Problem Notes None recorded. Procedures Surgical History Date Name Laterality Status Provider Name and Address Organization Details Recorded Time 08/21/20 05 Partial Hysterectomy completed [facility] 08/28/2023 14:18:29 biopsy of breast completed Maddie Gonzalez [facility] 09/03/2024 14:31:54 partial hip replacement by prosthesis completed [facility] 08/28/2023 14:18:05 [facility] 14:18:46 Imaging Results None recorded. Procedure Notes None recorded. Medical Equipment None Reported. Allergies No known drug allergies Medications Name Sig Start Date Stop Date Status Note LastModified by Organization Details LastModified Time cyclobenzap rine 10 mg tablet 08/28 completed Not Available Not Available Not Available albuterol sulfate 2.5 mg/3 mL (0.083 %) solution for nebulizatio n USE 1 VIAL VIA NEBULIZER EVERY 4 HOURS NEEDED FOR WHEEZING OR SHORTNESS OF BREATH active Not Available Not Available No t Available azithromyci n 250 mg tablet TAKE 2 TABLETS BY MOUTH FOR 1 DAY THEN TAKE 1 TABLET BY MOUTH DAILY FOR 4 DAYS 08/28 completed Not Available Not Available Not Available hydrocodone 5 mg-acetamin ophen 325 mg tablet TAKE 1 TABLET BY MOUTH EVERY 6 HOURS NEEDED FOR PAIN active Not Available Not Available No t Available sodium chloride 3 % for nebulizatio n USE 1 VIAL IN NEBULIZER NEEDED active Not Available Not Available No t Available ondansetron HCl 4 mg tablet TAKE 1 TABLET BY MOUTH EVERY 6 HOURS NEEDED FOR NAUSEA OR VOMITING active Not Available Not Available No t Available famotidine 40 mg tablet TAKE 1 TABLET BY MOUTH EVERY DAY AT BEDTIME active Not Available Not Available No t Available prednisone 20 mg tablet 08/28 completed Not Available Not Available Not Available clonazepam 0.5 mg tablet active Not Available Not Available Not Available sertraline 100 mg tablet TAKE 1 TABLET BY MOUTH DAILY active Not Available Not Available No t Available alprazolam 0.5 mg tablet TAKE 1 TABLET BY MOUTH THREE TIMES DAILY NEEDED FOR ANXIETY active Not Available Not Available No t Available alprazolam 0.25 mg tablet TAKE 1 TABLET BY MOUTH THREE TIMES DAILY NEEDED FOR ANXIETY active Not Available Not Available No t Available losartan 25 mg tablet active Not Available Not Available No t Available sertraline 25 mg tablet TAKE 1 TABLET BY MOUTH DAILY 09/03 completed Not Available Not Available Not Available metoprolol succinate ER 25 mg tablet,exte nded release 24 hr active Not Available Not Available Not Available levofloxaci n 750 mg tablet active Not Available Not Available Not Available methylpredn isolone 4 mg tablets in a dose pack FOLLOW PACKAGE DIRECTION S active Not Available Not Available No t Available albuterol sulfate HFA 90 mcg/actuati on aerosol inhaler active Not Available Not Available Not Available cefdinir 300 mg capsule TAKE 1 CAPSULE BY MOUTH EVERY 12 HOURS active Not Available Not Available No t Available sertraline 50 mg tablet TAKE 1 TABLET BY MOUTH EVERY DAY FOR DEPRESSIO N OR ANXIETY active Not Available Not Available No t Available azithromyci n 500 mg tablet TAKE 1 TABLET BY MOUTH THREE TIMES A WEEK 08/28 completed Not Available Not Available Not Available metoprolol tartrate 25 mg tablet active Not Available Not Available No t Available mirtazapine 7.5 mg tablet TAKE 1 TABLET BY MOUTH EVERY DAY AT BEDTIME active Not Available Not Available No t Available vilazodone 10 mg tablet TAKE 1 TABLET BY MOUTH DAILY WITH FOOD active Not Available Not Available No t Available Anoro Ellipta 62.5 mcg-25 mcg/actuati on powder for inhalation active Not Available Not Available N ot Available Anoro Ellipta active Not Available Not Available Not Available Jardiance 10 mg tablet active Not Available Not Available Not Available Entresto 24 mg-26 mg tablet TAKE 1 TABLET BY MOUTH TWICE DAILY active Not Available Not Available No t Available Tezspire 210 mg/1.91 mL (110 mg/mL) subcutaneou s pen injector active Not Available Not Available Not Available Vitals Date Recorded Body height Body mass index (BMI) Body weight Heart rate Systolic blood pressure Diastolic blood pressure Provider Name and Address Organization Details Last Updated DateTime 3 162.56 cm 22.6 kg/m2 70249.0 4 g 84 /min 124 mm[Hg] 64 mm[Hg] Mark Douglas [facility] 3 14:11:31 Date Recorded Body height Body mass index (BMI) Body weight Heart rate Systolic blood pressure Diastolic blood pressure Provider Name and Address Organization Details Last Updated DateTime 3 162.56 cm 22.5 kg/m2 40331.6 g 73 /min 151 mm[Hg] 80 mm[Hg] Selam Neumann CNM, [facility] [address], [place], [address], [facility] 3 13:11:52 Date Recorded Body height Body mass index (BMI) Body weight Heart rate Systolic blood pressure Diastolic blood pressure Provider Name and Address Organization Details Last Updated DateTime 4 162.56 cm 23 kg/m2 37137.3 8 g 49 /min 121 mm[Hg] 70 mm[Hg] Maddie Gonzalez [facility] 4 14:30:09 Date Recorded Body height Body mass index (BMI) Body weight Heart rate Systolic blood pressure Diastolic blood pressure Provider Name and Address Organization Details Last Updated DateTime 5 162.56 cm 22.7 kg/m2 82454.1 9 g 92 /min 177 mm[Hg] 91 mm[Hg] Maddie Gonzalez [facility] 5 12:15:14 Date Recorded Heart rate Systolic blood pressure Diastolic blood pressure Provider Name and Address Organization Details Last Updated DateTime 10/01/2024 80 /min 158 mm[Hg] 78 mm[Hg] Selam Neumann CNM, [facility] [address], [place], [address], [facility] 10/01/2024 13:07:36 Social History Question Answer Notes LastModified by Organizat [employer] Details LastModified Time Tobacco Smoking Status Former Smoker [facility] 08/28/2023 14:22:30 What Is Your Level Of Alcohol Consumption? None Information not available 08/28/2023 What Is Your Level Of Caffeine Consumption? Occasional Information not available 08/28/2023 Are There Any Guns Present In Your Home? No Information not available 08/28/2023 Do You Feel Safe In Your Home? Yes Information not available 08/28/2023 Do You Feel Stressed (tense, Restless, Nervous, Or Anxious, Or Unable To Sleep At Night)? [id number] Information not available 08/28/2023 Do You Use Any Illicit Or Recreational Drugs? No Information not available 08/28/2023 Sex: Unknown Functional Status Question Answer Note LastModified by Organizat ion Details LastModified Time What is your exercise level? Occasional Information not available 08/28/2023 Mental Status None recorded. Family History Relationship Description Onset Age of this Age Resolved Age Notes LastModified by Organization Details LastModified Time Father Heart disease Not available 2022 14:20:21 Mother Diabetes mellitus Not available 2022 14:20:37 Sister Hypertensive disorder Not available 2022 14:20:51 Medical History Condition Response Trauma/Violence N Abuse/Domestic Violence N Osteoporosis Y Breast Cancer Y Gynecological HistoryNo gynecological history recorded. Obstetrics History GPAL:G 5 P 0 0 0 4 Type Value Living 4 Total 5 Past Encounters Encounter ID Performer Location Encounter Start Date Encounter Closed Date Diagnosis/Indication Diagnosis SNOMED-CT Code Diagnosis ICD10 Code Diagnosis Note [id number] Selam Neumann CNM, [facility]- Main Office [address] [place] [address] 08/28/2023 14:01:40 08/28/2023 16:04:28 Moderate recurrent major depression 00216111 F33.1 restart zoloft 25mg daily, encouraged to take at bedtime. discussed can cause some gi disturbanc e but usually does not last longer than a few weeks Generalize d anxiety disorder 92777511 F41.1 start zoloftcont inue xanax as needed- prescribed by Dr Echevarria [id number] Selam Neumann CNM, [facility] Main Office [address] [place] [address] 09/11/2023 12:02:44 09/11/2023 13:01:59 Anxiety 74011387 F41.9 continue Xanax as needed, as prescribed by pcp Mild recur rent major depression 21517347 F33.0 increase zoloft to 50mg dailyencou raged getting into grief counseling or therapy at [facility] counseling rtc 3 weeks [id number] Selam Neumann CNM, [facility] Main Office [address] [place] [address] 09/03/2024 14:24:18 09/05/2024 13:09:29 Anxiety 43278280 F41.9 continue Xanax as needed, as prescribed by pcp Moderate r ecurrent major depression 46420602 F33.1 increase zoloft to 50mg daily, encouraged to take at bedtime. discussed can cause some gi disturbanc e but usually does not last longer than a few weeksrtc 4 weeksencou rage therapy weekly- starting back to therapy with FRANCISCO [id number] Selam Neumann CNM, [facility] Main Office [address] [place] [address] 10/01/2024 12:12:19 10/01/2024 15:35:02 Moderate recurrent major depression 91508615 F33.1 continue zoloft 50mg daily,rtc 3 monthsenco urage therapy weekly- starting with new therapist next week Anxiety 98178626 F41.9 continue Xanax as needed, as prescribed by pcp Increased blood pressure 60534856 R03.0 bp 177/91 on arrival to office. retake 158/78. Seeing Dr Loja cardiology today at 1pm Health Concerns Section Related Observation LastModified by Organization Detai ls LastModified Time None Recorded Concern Status LastModified by Organization Details LastModified Time None Recorded Advance Directives Directive None Recorded Payers Encounter Date Sequence Insurance Name Policy Number Policy Huerta Covered Member ID Huerta Member ID Guarantor Name 08/28/2023 1 [place] Nora Tejeda [id number] Nora Tejeda 09/11/2023 1 [place] Nora Tejeda [id number] Nora Tejeda 09/03/2024 1 [place] Nora Tejeda [id number] Nora Tejeda 09/03/2024 2 FOR LIFE () Nora Tejeda [id number] Nora Tejeda 10/01/2024 1 [place] Nora Tejeda [id number] Nora Tejeda 10/01/2024 2 FOR LIFE () Nora Tejeda [id number] Nora Tejeda Notes Date Note Type Note Provider Name and Address Organization Details Recorded Time 08/28/2023 text/html Met with Nora this afternoon. Nora is accompanied by her daughter Payal. Nora is struggling with grief from the loss of her spouse 2 years ago, and now has moved in with her daughter, and the grief of the loss of her independence. Nora has a history of Depression back in 1987, and the next time she had an episode of depression was when her was diagnosed with a terminally illness. She has taken prozac, zoloft and Elavil in the past, most recent antidepressant was zoloft which she did well with until she reached higher doses (100mg) then she felt numb to her emotions, at which time she weaned off of. Nora has never had a psychiatric hospitalization. She has never had a suicide attempt or history of self-harm. She has never experienced any physical, emotional, or sexual trauma. She denies any alcohol or drug use.Family history of anxiety sisterAngela states her mood to be good . Denies any feelings of worthlessness. does admit to hopelessness and helplessness. states not isolated from family but has isolated from friends. Sleep good getting 7 hours a night - taking xanax for sleep. Am are difficult. over the past 6 months not wanting to get out of bed, not wanting to eat breakfast. appetite poor. eats 3 meals a day but forces self to eat. nauseated and feels lump in her throat. improes after taking dose of xanax. has lost 6 lbs . Denies any SIo r HI. Denies any AH or VH. Energy is good. Selam Neumann CNM, [facility] [address], [place], [address], [facility] 08/28/2023 22:20:29 09/11/2023 text/html Met with Nora this afternoon. Nora is accompanied by her daughter Payal. doing well with zoloft, tolerated well.Nora states her mood to be good . Vivian christianson endorses feeling of worthlessness, and guilt. some improvement in hoplessness. Denies any helplessness. Sleep good getting 7 hours a night - taking xanax for sleep. Am are difficult. over the past 6 months not wanting to get out of bed, not wanting to eat breakfast. appetite improving eats 3 meals a day, no longer needing to force self to eat. improvement in nausea and feels lump in her throat. Denies any SI or HI. Denies any AH or VH. Energy is good. Selam Neumann CNM, [facility] [address], [place], [address], [facility] 09/11/2023 13:44:31 09/03/2024 text/html Met with Nora today. Nora last was seen a year ago. Nora was followed up by PCP over the last year for her mental health. She had stopped Zoloft at one time in the past year due to feeling better but resumed Zoloft approximately a month ago. She was diagnosed with breast CA since she was last seen. She was living with her daughter Payal, then moved to an assisted living community, and in the past week, has moved into her daughter Tina's home. Endorses feelings of worthlessness and helplessness due to moving in with her daughter Tina's home and needing lots of help. Does admit to having feelings of hope, they are all really good to me . Appetite is bad, but still eating 3 meals a day. Denies isolating self. Went to [facility] on sunday. Sleep- No problems falling or staying asleep. Takes Xanax prior to bedtime. Always wakes early in am. Denies any SI or Hi. Denies any AH or VH. Getting back into therapy with FRANCISCO. Selam Neumann CNM, [facility] [address], [place], [address], [facility] 09/03/2024 20:45:26 10/01/2024 text/html Met with Nora today to follow-up on her MDD, RD and Zoloft. Nora states she is frustrated, I just want to be better, not liking the inconvenience of living with someone else. Does endorse some feelings of worthlessness and helplessness in regards to living with her daughter, the bad weather and cold. She is looking forward to the weather getting better. She does endorse feelings of hope. Just had a sleep study done and will discuss that further with her car framer today. Nora denies any SI or HI. Denies any auditory hallucinations or visual hallucinations. Starting with a new therapist next week Roxana Cleveland. Selam Neumann CNM, [facility] [address], [place], [address], [facility] 10/01/2024 13:30:53 OBGyn Episode No OBEpisode recorded.
--- OUTSIDE RECORDS SUMMARY | 2024-11-06 11:55 | XMS_ITS | Clinical Summary ---
Author Organization [facility] Virtual Care Address [address] [place] [phone] Phone Care Team Providers Care Timing Inspector Name Role Phone Pawan Echevarria MD Primary Care Provider [phone] Allergies No known active allergies Medications calcium [...] CMP checked today. - Spoke with her state appellate clerk, Dr. Abdon Flynn ([facility], to discuss the possibility of sparing [...] 81 y.o. 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 8 COPD (chronic obstructive pulmonary disease) Encounters Date Type Department Care Team Description 10/01/2024 1:15 PM BENEFITS DIRECTOR Office Visit [facility] Cardiology [address] [place] [address] [address] [place] [phone] Damien Plaza MD Nonischemic cardiomyopathy (CMS/HCC) (HCC) (Primary Dx); PVC (premature ventricular contraction); Anxiety; Chronic hypoxic respiratory failure, on home oxygen therapy (HCC); YUNIOR (obstructive sleep apnea) 09/01/2024 Telephone [facility] Cardiology [address] [place] [address] [place] [phone] Mayra Rubin NP 08/29/2024 3:00 PM BENEFITS DIRECTOR Ancillary Procedure [address] [place] [phone] Nonischemic cardiomyopathy (CMS/HCC) (HCC) 08/26/[address] [place] [phone] Mayra Rubin NP Med Management 08/21/[address] [place] [phone] Mayra Rubin NP from Last 3 Months [...] on file Legal Sex Female 3:43 AM BENEFITS DIRECTOR Gender Identity Female 02/01/2022 8:55 AM CDT Sexual Orientation Straight 02/01/2022 8: 55 AM CDT Obstetrics History Last Filed Vital Signs Vital Sign Reading Time Taken Comments Blood Pressure 150/68 10/01/2024 1:07 PM BENEFITS DIRECTOR Pulse 56 10/01/2024 1:07 PM BENEFITS DIRECTOR Temperature 36.9 C (98.5 F) 10/04/2022 11:40 AM BENEFITS DIRECTOR Respiratory Rate 20 03/18/2024 11:5 3 AM CDT Oxygen Saturation 91% 10/01/2024 1:0 7 PM BENEFITS DIRECTOR 2 Liters oxygen Inhaled Oxygen Concentration - - Weight 59.4 kg (131 lb) 10/01/2024 1:07 PM BENEFITS DIRECTOR Height 162.6 cm (5' 4 ) 10/01/2024 1:07 PM BENEFITS DIRECTOR Body Mass Index 22.49 10/01/2024 1:07 PM BENEFITS DIRECTOR Plan of Treatment Health Maintenance Due Date [...] Comments ELECTROCARDIOGRAM REPORT Routine 025 3:58 PM BENEFITS DIRECTOR PVC (premature ventricular contraction) TRANSTHORACIC ECHO (TTE) LIMITED/FOLLOW UP WO DOPPLER/CF WO CONTRAST Routine 08/29/2024 3:55 PM BENEFITS DIRECTOR Nonischemic cardiomyopathy (CMS/HCC) (HCC) from Last 3 Months Results * Electrocardiogram Report (10/01/2024 3:58 PM BENEFITS DIRECTOR) us Damien Plaza MD ECG ORDERABLES Final Result * TRANSTHORACIC ECHO (TTE) LIMITED/FOLLOW UP WO DOPPLER/CF WO CONTRAST (08/29/2024 3:55 PM BENEFITS DIRECTOR) Anatomical Region Laterality Modality Ultrasound 08/29/2024 3:50 PM BENEFITS DIRECTOR Narrative 08/29/2024 4:17 PM BENEFITS DIRECTOR [facility] Cardiology [address] [facility] [address] [address] [address] [facility] [address] [address] P:[phone] P:[phone] Echocardiographic Report Patient Name: NORA TEJEDA M : 1940 Study Date: 08/29/2024 3:50:42 PM Gender: F Tech: Location: [facility] Provider: MAYRA RUBIN Height(Cm): 163 BSA: 1.65 [...] FINDINGS: Interpretation Site: Exam was interpreted at [facility]. Left Ventricle: Normal left ventricular size. [...] By: Ish Vidal MD 08/29/2024 4:17:28 PM BENEFITS DIRECTOR 40-45 Procedure Note Ish Vidal MD - 08/29/2024 [facility] Cardiology [address] [facility] [address] [id number] [address] [facility] [address] [address] P:[phone] P:[phone] Echocardiographic Report Patient Name: NORA TEJEDA M : 1940 Study Date: 08/29/2024 3:50:42 PM Gender: F Tech: Location: [facility] Provider: MAYRA RUBIN Height(Cm): 163 BSA: 1.65 [...] FINDINGS: Interpretation Site: Exam was interpreted at [facility]. Left Ventricle: Normal left ventricular size. [...] By: Ish Vidal MD 08/29/2024 4:17:28 PM BENEFITS DIRECTOR 40-45 Mayra Rubin NP CV ECHO PROCEDURES Final Result from Last [address] [place] [address] MEDICARE [place] MEDICARE FOR LIFE MEDICARE FOR LIFE Care Teams Timing Inspector Relationship Specialty Start Date End Date Pawan Echevarria MD [address] [place] [address] [id number] PCP - General Family Medicine 06/06/23
--- OUTSIDE RECORDS SUMMARY | 2024-11-06 11:55 | XMS_ITS | Clinical Summary ---
Author Organization [facility] Address Critical access hospital[address] [place] [address] Care Team Providers Care Mid Level Project Manager Name Role Phone Pawan Echevarria MD Primary Care Provider [phone] Allergies Active Allergy Reactions Criticality Noted Date Comments Ipratropium Unknown 07/04/2018 Levofloxacin Hallucinations Medium 10/06/2024 [place] Patient reported during admission 09/2024 after [...] solutionIndicatio ns:Mixed simple and mucopurulent chronic bronchitis (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 COPD (chronic obstructive pu lmonary disease) ([facility]) 03/05/2018 History of Pseudomonas pneumonia 01/27/2018 Pleural thickening 01/27/2018 Bacterial infection 12/13/2017 Chronic cough 12/10/2017 Asthma exacerbation (HHS/HCC) 12/10/2017 Wheeze 12/10/2017 Resolved Problems Problem Noted Date Diagnosed Date Resolved Date Encounter for preventive health examination 11/07/2017 05/28/2020 Encounters Date Type Department Care Team Description 10/28/2024 Telephone [facility] [place] [address] [place] [id number] Naeem Grissom MD Results 10/24/2024 12:00 PM TERRITORY SUPERVISOR Home Care Visit [facility] [address] [address] Juana Gonzalez RN SN OASIS DISCHARGE/ASSESSMENT 10/24/2024 Home Care Visit [address] [address] Juana Gonzalez RN [facility] OF CARE INTERDISCIPLINARY [place] 10/22/2024 11:30 AM TERRITORY SUPERVISOR Home Care Visit [facility] [address] [address] Juana Gonzalez RN SN HOME VISIT 10/17/2024 9:45 AM TERRITORY SUPERVISOR Home Care Visit [address] [address] Juana Gonzalez RN SN HOME VISIT 10/14/2024 1:30 PM TERRITORY SUPERVISOR Home Care Visit [address] [address] Iris Chauhan od, LPN SN HOME VISIT 10/13/2024 4:00 PM TERRITORY SUPERVISOR Home Care Visit [address] [phone] Olga Huertas, PT PT INITIAL EVALUATION 10/09/2024 10:30 AM TERRITORY SUPERVISOR Home Care Visit [address] [phone] Juana Gonzalez RN SN OASIS START OF CARE 10/09/2024 Home Care Visit [facility] Home Care [address] [place] [address] [place] [address] Juana Gonzalez RN [facility] INTERDISCIPLINARY [place] 10/09/2024 Plan of Care Documentation [facility] [address] [place] [address] [place] [address] 10/08/2024 10:00 AM TERRITORY SUPERVISOR Home Care Visit [facility] [address] [facility] [place] [address] [place] [address] Eveline Newton RN SN NON ADMIT SOC 10/06/2024 11:45 AM TERRITORY SUPERVISOR Home Care Visit [facility] [address] [facility] [place] [address] [place] [address] Denice Lizarraga RN LIAISON VISIT 10/03/2024 3:39 PM TERRITORY SUPERVISOR - 10/08/2024 3:59 PM TERRITORY SUPERVISOR Hospital Encounter [facility] [place] [address] Sarthak Hendrickson MD Alexander, Kaci M, Nelson High DO Suresh, Wolf Johnson MD Shortness Of Breath Discharge Disposition: Home with Home Health Care 10/03/2024 Travel 10/03/2024 MyChart Message [facility] [address] [place] [address] Naeem Grissom MD Fever/Shortness of Breath 09/22/2024 2:51 PM TERRITORY SUPERVISOR - 09/22/2024 11:59 PM TERRITORY SUPERVISOR Hospital Encounter [facility] Sleep Lab [address] [place] [address] Naeem Grissom MD Snoring Discharge Disposition: Home or Self Care (Routine Discharge) 09/22/2024 Travel 09/11/2024 10:20 AM TERRITORY SUPERVISOR [facility] [address] [place] [address] Naeem Grissom MD Follow Up (Was at [facility] 08/2024 for UTI (had EKG and CXR [...] materials from doctor or pharmacy Never 10/24/2024 [facility] Utilities Answer Date Recorded In the past 12 months has th e [employer], [employer], oil, or water [employer] threatened to shut off services in your [...] and Family Not on file 10/04/2024 Attends [employer] Not on file 10/04 Active Member [...] Recorded Patient Health Questionnaire-2 Score 2 12/05/2022 [facility] Answer Date Recorded [...] any time in the past 12 [facility], were you homeless or living in a detention (including now)? 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 2:27 PM TERRITORY SUPERVISOR Legal Sex Female 4:16 PM CDT Gender Identity Not on file Sexual Orientation Not on file Last Filed Vital Signs Vital Sign Reading Time Taken Comments Blood Pressure 112/54 10/24/2024 12:28 PM TERRITORY SUPERVISOR Pulse 78 10/24/2024 12:28 PM TERRITORY SUPERVISOR Temperature 36.6 C (97.9 F) 10/14/2024 1:35 PM TERRITORY SUPERVISOR Respiratory Rate 20 10/24/2024 12:28 PM TERRITORY SUPERVISOR Oxygen Saturation 93% 10/24/2024 12:28 PM TERRITORY SUPERVISOR Inhaled Oxygen Concentration - - Weight 59 kg (130 lb) 10/24/2024 12:28 PM TERRITORY SUPERVISOR Height 162.6 cm (5' 4 ) 10/03/2024 8:42 PM TERRITORY SUPERVISOR Body Mass Index 22.31 10/03/2024 8:42 PM TERRITORY SUPERVISOR Plan of Treatment Upcoming Encounters Date Type Department Care Team (Late st Contact Info) Description 01/14/2025 11:40 AM CDT Office Visit [facility] Multispecialty Care - [address] [place] [phone] Naeem Grissom MD [address] [place] [address] [place] [address] Health Maintenance Due Date Last Done Comments [...] 10/26/2020 Influenza Adult (#1) 2024 PHQ-2 (Physician [place]) 09/17/2024 10/25/2023 Meningococcal B Vaccine Aged Out [...] HOME O2 EVAL Routine 10/08/2024 11:26 AM TERRITORY SUPERVISOR CBC W/DIFF AUTOMATED Routine 10/08/2024 5:46 AM TERRITORY SUPERVISOR BASIC METABOLIC PANEL Routine 10/08/2024 5:46 AM TERRITORY SUPERVISOR CBC W/DIFF AUTOMATED Routine 10/07/2024 6:07 AM TERRITORY SUPERVISOR BASIC METABOLIC PANEL Routine 10/07/2024 6:07 AM TERRITORY SUPERVISOR CBC W/DIFF AUTOMATED Routine 10/06/2024 6:13 AM TERRITORY SUPERVISOR BASIC METABOLIC PANEL Routine 10/06/2024 6:13 AM TERRITORY SUPERVISOR CBC W/DIFF AUTOMATED Routine 10/05/2024 8:03 AM TERRITORY SUPERVISOR BASIC METABOLIC PANEL Routine 10/05/2024 8:03 AM TERRITORY SUPERVISOR CULTURE RESPIRATORY W/ GRAM STAIN STAT 10/04/2024 1:32 PM TERRITORY SUPERVISOR CULTURE, TB/AFB W/ STAIN STAT 10/04/2024 1:32 PM TERRITORY SUPERVISOR COMPREHENSIVE METABOLIC PANEL STAT 10/04/2024 6:00 AM TERRITORY SUPERVISOR CBC W/DIFF AUTOMATED STAT 10/04/2024 6:00 AM TERRITORY SUPERVISOR RESPIRATORY PCR PANEL 2 STAT 10/04/2024 1:12 AM TERRITORY SUPERVISOR HC MYCOPLASMA AB-90 Routine 10/04/2024 1 2:31 AM TERRITORY SUPERVISOR CULTURE, BACTERIA, BLOOD STAT 10/03/2024 11:10 PM TERRITORY SUPERVISOR ECG 12-LEAD STAT 10/03/2024 4:49 PM TERRITORY SUPERVISOR CULTURE RESPIRATORY W/ GRAM STAIN STAT 10/03/2024 4:27 PM TERRITORY SUPERVISOR INFLUENZA A & B STAT 10/03/2024 4:27 PM TERRITORY SUPERVISOR CORONAVIRUS (COVID 19) STAT 4:27 PM TERRITORY SUPERVISOR LEGIONELLA AG URINE STAT 10/03/2024 4 :15 PM TERRITORY SUPERVISOR HC INFECT AGENT DETECT OPTICAL STAT 10/03/2024 4:15 PM TERRITORY SUPERVISOR TSH W/REFLEX Routine 10/03/2024 4:15 PM TERRITORY SUPERVISOR PHOSPHORUS, INORGANIC PHOSPHATE Routine 10/03/2024 4:15 PM TERRITORY SUPERVISOR MAGNESIUM Routine 10/03/2024 4:15 PM TERRITORY SUPERVISOR PROCALCITONIN (PCT) STAT 10/03/2024 4 :15 PM TERRITORY SUPERVISOR URINALYSIS, AUTO, COMPLETE STAT 10/03/2024 4:15 PM TERRITORY SUPERVISOR COMPREHENSIVE METABOLIC PANEL STAT 10/03/2024 4:15 PM TERRITORY SUPERVISOR CBC W/DIFF AUTOMATED STAT 10/03/2024 4:15 PM TERRITORY SUPERVISOR PRO-BRAIN NATRIURETIC PEPTIDE STAT 10/03/2024 4:15 PM TERRITORY SUPERVISOR TROPONIN, QUANT STAT 10/03/2024 4:15 PM TERRITORY SUPERVISOR BLOOD GAS, ARTERIAL LAB STAT 10/03/2024 4:05 PM TERRITORY SUPERVISOR XR CHEST PA+LAT STAT 10/03/2024 3:05 PM TERRITORY SUPERVISOR HOME SLEEP STUDY - WATCHPAT Routine 09/22/2024 3:00 PM TERRITORY SUPERVISOR Snoring from Last 3 Months Results * (ABNORMAL) BASIC METABOLIC PANEL (10/08/2024 5:46 AM TERRITORY SUPERVISOR) Only the most recent of4 resultswithin the time period is included. [facility] GLUCOSE 84 70 - 99 MG/DL 10/08/2024 9:39 AM [facility] BUN 19(H) 7 - 18 MG/DL 10/08/2024 9:39 AM [facility] CREATININE S/P/B 0.58 0.55 - 1.02 MG/DL 10/08/2024 9:39 AM TERRITORY SUPERVISOR [facility] SODIUM S/P/B 134(L) 136 - 145 MMOL/L 10/08/2024 9:39 AM [facility] POTASSIUM S/P/B 4.0 3.5 - 5.1 MMOL/L 10/08/2024 9:39 AM TERRITORY SUPERVISOR [facility] CHLORIDE S/P/B 102 97 - 115 MMOL/L 10/08/2024 9:39 AM TERRITORY SUPERVISOR [facility] CO2 29.0 21 - 32 MMOL/L 10/08/2024 9:39 AM [facility] CALCIUM S/P/B 8.6 8.5 - 10.1 MG/DL 10/08/2024 9:39 AM [facility] ANION GAP 3.0 2 - 10 MMOL/L 10/08/2024 9:39 AM [facility] BUN CREATININE RATIO 32.9(H) 6 - 26 10/08/2024 9:39 AM TERRITORY SUPERVISOR [facility] GFR ESTIMATE 90(L) >90 ML/MIN/1.7 3 M2 10/08/2024 9:39 AM [facility] Comment: NOTE: eGFR is not calculated for patients <18 years of age or gender unknown. This is an estimated GFR calculation using the new CKD EPI creatinine equation without race and so does not require a correction factor for race. This estimated GFR should not be used for calculating drug doses. 10/08/2024 5:46 AM TERRITORY SUPERVISOR us Wolf Turner MD LABORATORY Final R esult [facility] [address] [place] [address], [place] [phone] * (ABNORMAL) CBC W/DIFF AUTOMATED (10/08/2024 5:46 AM TERRITORY SUPERVISOR) Only the most recent of6 resultswithin the time period is included. WBC 4.27(L) 4.5 - 11.0 x10'3/uL 10/08/2024 6:40 AM [facility] RBC 4.40 4.20 - 5.40 x10'6/uL 10/08/2024 6:40 AM [facility] HGB 12.5 12.0 - 16.0 G/DL 10/08/2024 6:40 AM [facility] HCT 39.2 38.0 - 48.0 % 10/08/2024 6:40 AM TERRITORY SUPERVISOR [facility] MCV 89.1 81.0 - 99.0 FL 10/08/2024 6:40 AM [facility] MCH 28.4 27.0 - 31.0 PG 10/08/2024 6:40 AM [facility] MCHC 31.9(L) 32.0 - 36.0 G/DL 10/08/2024 6:40 AM [facility] RDW 13.0 11.5 - 14.5 % 10/08/2024 6:40 AM [facility] PLT 180 130 - 400 x10'3/uL 10/08/2024 6:40 AM [facility] MPV 10.2 9.3 - 12.2 FL 10/08/2024 6:40 AM [facility] DIFFERENTIAL TYPE AUTOMATED DIFFERENTIAL 10/08/2024 6:40 AM [facility] NEUTROPHILS % 57.7 % 10/08/2024 6:40 AM [facility] LYMPHOCYTES % 28.8 % 10/08/2024 6:40 AM [facility] MONOCYTES % 13.1 % 10/08/2024 6:40 AM [facility] EOSINOPHILS 0.0 % 10/08/2024 6:40 AM [facility] BASOPHILS 0.2 % 10/08/2024 6:40 AM [facility] IMMATURE GRANS % 0.2 % 10/08/19 6:40 AM [facility] ABS. NEUTROPHILS 2.46 1.80 - 7.70 x10'3/uL 10/08/2024 6:40 AM [facility] ABS. LYMPHOCYTES 1.23 1.00 - 4.80 x10'3/uL 10/08/2024 6:40 AM [facility] ABS. MONOCYTES 0.56 0.24 - 0.86 x10'3/uL 10/08/2024 6:40 AM [facility] ABS. EOSINOPHILS 0.00(L) 0.04 - 0.36 x10'3/uL 10/08/2024 6:40 AM TERRITORY SUPERVISOR [facility] ABS. BASOPHILS 0.01 0.01 - 0.08 x10'3/uL 10/08/2024 6:40 AM TERRITORY SUPERVISOR [facility] ABS. IMMATURE GRANULOCYTES 0.01 0.00 - 0.49 x10'3/uL 10/08/2024 6:40 AM TERRITORY SUPERVISOR [facility] 10/08/2024 5:46 AM TERRITORY SUPERVISOR us Wolf Turner MD LABORATORY Final R esult [facility] [address] [place] [address], [place] [phone] * (ABNORMAL) CULTURE RESPIRATORY W/ GRAM STAIN (10/04/2024 1:32 PM TERRITORY SUPERVISOR) Only the most recent of2 resultswithin the time period is included. SPEC DESCRIPTION SPUTUM, EXPECTORATED 10/04/2024 1:32 PM [facility] SPECIAL REQUESTS NO SPECIAL REQUEST 10/04/2024 1:32 PM [facility] GRAM STAIN RESULT MODERATE WHITE BLOOD CELLS SEEN 10/05/2024 10:17 AM [facility] GRAM STAIN RESULT FEW MIXED BACTERIAL NIKOLE 10/05/2024 10:17 AM [facility] CULTURE RESULT SPARSE GROWTH OF PSEUDOMONAS AERUGINOSA SUSCEPTIBILITY ON PREVIOUS SPECIMEN [id number] NOTE: ORGANISM MAY DEVELOP RESISTANCE AFTER 3 TO 4 DAYS OF THERAPY WITH THIRD GENERATION CEPHALOSPORINS. TESTING OF REPEAT ISOLATES MAY BE WARRANTED. (A) 10/06/2024 8:37 AM TERRITORY SUPERVISOR [facility] CULTURE RESULT LIGHT GROWTH OF NORMAL NIKOLE PRESENT 10/06/2024 8:37 AM [facility] SPUTUM SPECIMEN / Unknown 10/04/2024 1:32 PM TERRITORY SUPERVISOR 10/04/2024 1:46 PM TERRITORY SUPERVISOR us Robin Garcia DO MICROBIOLOGY - GENERAL ORD ERABLES Final Result [facility] [address] [place] [address], [place] [phone] * (ABNORMAL) COMPREHENSIVE METABOLIC PANEL (10/04/2024 6:00 AM TERRITORY SUPERVISOR) Only the most recent of2 resultswithin the time period is included. [facility] GLUCOSE 119(H) 70 - 99 MG/DL 10/04/2024 6:37 AM [facility] BUN 17 7 - 18 MG/DL 10/04/2024 6:37 AM [facility] CREATININE S/P/B 0.72 0.55 - 1.02 MG/DL 10/04/2024 6:37 AM [facility] SODIUM S/P/B 133(L) 136 - 145 MMOL/L 10/04/2024 6:37 AM [facility] POTASSIUM S/P/B 4.0 3.5 - 5.1 MMOL/L 10/04/2024 6:37 AM [facility] CHLORIDE S/P/B 102 97 - 115 MMOL/L 10/04/2024 6:37 AM [facility] CO2 25.8 21 - 32 MMOL/L 10/04/2024 6:37 AM [facility] CALCIUM S/P/B 8.7 8.5 - 10.1 MG/DL 10/04/2024 6:37 AM [facility] BILIRUBIN TOTAL S/P/B 0.3 0.2 - 1.2 MG/DL 10/04/2024 6:37 AM [facility] Comment: THIS ASSAY IS NOT RECOMMENDED FOR PATIENTS UNDERGOING TREATMENT WITH ELTROMBOPAG DUE TO THE POTENTIAL FOR FALSELY ELEVATED RESULTS. TOTAL PROTEIN S/P/B 6.5 6.4 - 8.2 G/DL 10/04/2024 6:37 AM [facility] ALBUMIN S/P/B 3.1(L) 3.4 - 5.0 G/DL 10/04/2024 6:37 AM [facility] AST 13(L) 15 - 37 U/L 10/04/2024 6:37 AM [facility] ALT 19 14 - 55 U/L 10/04/2024 6:37 AM [facility] ALKALINE PHOSPHATASE S/P/B 49(L) 50 - 136 U/L 10/04/2024 6:37 AM [facility] ANION GAP 5.2 2 - 10 MMOL/L 10/04/2024 6:37 AM [facility] BUN CREATININE RATIO 23.7 6 - 26 10/04/2024 6:37 AM [facility] A/G RATIO 0.9(L) 1.0 - 2.0 RATIO 10/04/2024 6:37 AM [facility] GFR ESTIMATE 83(L) >90 ML/MIN/1.7 3 M2 10/04/2024 6:37 AM [facility] Comment: NOTE: eGFR is not calculated for patients <18 years of age or gender unknown. This is an estimated GFR calculation using the new CKD EPI creatinine equation without race and so does not require a correction factor for race. This estimated GFR should not be used for calculating drug doses. 10/04/2024 6:00 AM TERRITORY SUPERVISOR us Lilibeth Manzano CLIENT SERVICE COORDINATOR LABORATORY Final Resul t [facility] [address] [place] [address], * (ABNORMAL) RESPIRATORY PCR PANEL 2 (10/04/2024 1:12 AM TERRITORY SUPERVISOR) [facility] ADENOVIRUS PCR (RESP) NOT DETECTED NOT DETECTED 10/04/2024 3:19 AM [facility] CORONAVIRUS 229E PCR (RESP) NOT DETECTED NOT DETECTED 10/04/2024 3:19 AM [facility] CORONAVIRUS HKU1 PCR (RESP) NOT DETECTED NOT DETECTED 10/04/2024 3:19 AM [facility] CORONAVIRUS NL63 PCR (RESP) NOT DETECTED NOT DETECTED 10/04/2024 3:19 AM [facility] CORONAVIRUS OC43 PCR (RESP) NOT DETECTED NOT DETECTED 10/04/2024 3:19 AM [facility] METAPNEUMOVIRUS PCR (RESP) NOT DETECTED NOT DETECTED 10/04/2024 3:19 AM [facility] RHINOVIRUS/ENTEROV IRUS PCR (RESP) NOT DETECTED NOT DETECTED 10/04/2024 3:19 AM [facility] INFLUENZA A/H1-2009 PCR (RESP) DETECTED(A) NOT DETECTED 10/04/2024 3:19 AM [facility] INFLUENZA B PCR (RESP) NOT DETECTED NOT DETECTED 10/04/2024 3:19 AM [facility] PARAINFLUENZA 1 PCR (RESP) NOT DETECTED NOT DETECTED 10/04/2024 3:19 AM [facility] PARAINFLUENZA 2 PCR (RESP) NOT DETECTED NOT DETECTED 10/04/2024 3:19 AM [facility] PARAINFLUENZA 3 PCR (RESP) NOT DETECTED NOT DETECTED 10/04/2024 3:19 AM [facility] PARAINFLUENZA 4 PCR (RESP) NOT DETECTED NOT DETECTED 10/04/2024 3:19 AM [facility] RSV PCR (RESP) NOT DETECTED NOT DETECTED 10/04/2024 3:19 AM TERRITORY SUPERVISOR [facility] B PARAPERTUSIS PCR (RESP) NOT DETECTED NOT DETECTED 10/04/2024 3:19 AM TERRITORY SUPERVISOR [facility] BORDETELLA PERTUSSIS PCR (RESP) NOT DETECTED NOT DETECTED 10/04/2024 3:19 AM TERRITORY SUPERVISOR [facility] CHLAMYDOPHILA PNEUMONIAE PCR (RESP) NOT DETECTED NOT DETECTED 10/04/2024 3:19 AM TERRITORY SUPERVISOR [facility] MYCOPLASMA PNEUMONIAE PCR (RESP) NOT DETECTED NOT DETECTED 10/04/2024 3:19 AM TERRITORY SUPERVISOR [facility] CORONAVIRUS SARS COV 2 PCR (RESP) NOT DETECTED NOT DETECTED 10/04/2024 3:19 AM TERRITORY SUPERVISOR [facility] NASOPHARYNGEAL SWAB / Unknown 10/04/2024 1:12 AM TERRITORY SUPERVISOR Lilibeth Manzano CLIENT SERVICE COORDINATOR MICROBIOLOGY - GENERAL JAI SKELTON Final Result [address] [address], * (ABNORMAL) MYCOPLASMA PNEUMONIAE AB (10/04/2024 12:31 AM TERRITORY SUPERVISOR) M. PNEUMONIAE AB IGG 1.65(H) <=0.90 10/08/2024 5:20 PM TERRITORY SUPERVISOR [employer] Comment: Reference Range: <=0.90 Negative 0.91-1.09 Equivocal >=1.10 Positive A positive IgG result indicates that the patient has antibody to Mycoplasma. It does not differentiate between an active or past infection. The clinical diagnosis must be interpreted in conjunction with the clinical signs and symptoms of the patient. M. PNEUMONIAE AB IGM 25 <770 U/mL 10/08/2024 5:20 PM TERRITORY SUPERVISOR [employer] [facility] Comment: Reference Range: <770 [...] symptoms of the patient. [facility], [address] [place] [address] Cj Dallas M.D., Ph.D., Director of Laboratories , CLIA [id number] 10/04/2024 12:3 1 AM TERRITORY SUPERVISOR Lilibeth Manzano APRN LABORATORY Final Resul t Performing Organization Address City/[facility]/ZIP Co de Phone Number [employer] [address] [address], [place] [phone] * CULTURE BACTERIA, BLOOD (10/03/2024 11:10 PM TERRITORY SUPERVISOR) SPEC DESCRIPTION BLOOD 10/03/2024 4:16 PM TERRITORY SUPERVISOR [facility] SPECIAL REQUESTS NO SPECIAL REQUEST 10/03/2024 4:16 PM TERRITORY SUPERVISOR [facility] CULTURE RESULT NO GROWTH 5 DAYS 10/08/2024 10:45 AM TERRITORY SUPERVISOR [facility] BLOOD SPECIMEN OBTAINED FOR BLOOD CULTURE / Unknown 10/03/2024 11:10 PM TERRITORY SUPERVISOR 10/03/2024 11:15 PM TERRITORY SUPERVISOR Sarthak Hendrickson MD MICROBIOLOGY - GENERAL ORDERABL ES Final Result [facility] [address] [place] [address], * ECG 12 lead (10/03/2024 4:49 PM TERRITORY SUPERVISOR) 10/03/2024 4:49 PM TERRITORY SUPERVISOR Narrative [facility] RAD - 10/04/2024 5:10 AM TERRITORY SUPERVISOR [place] Test Date: 2024-10-03 Pat Name: HERIBERTO MITCHELLTON Department: 41 Room: EXAM10 Gender: Female Self Pay Collector: CC : 1940 Requested By: BRANDI ACEVES Order Number: [id number] Reading MD: Danny Bee Measurements Intervals [place] Rate: 114 P: 95 OK: 169 QRS: 40 QRSD: 119 T: 138 QT: 322 QTc: 445 Interpretive Statements SINUS TACHYCARDIA WITH FREQUENT VENTRICULAR PREMATURE COMPLEXES Baseline artifact limits interpretation ITORY SUPERVISOR Procedure Note Danny Bee MD - 10/04/2024 [address] Test Date: 2024-10-03 Pat Name: HERIBERTO VENTURA Department: 41 Room: EXAM10 Gender: Female Self Pay Collector: CC : 1940 Requested By: BRANDI ACEVES Order Number: [id number] Reading MD: Danny Bee Measurements Intervals [place] Rate: 114 P: 95 OK: 169 QRS: 40 QRSD: 119 T: 138 QT: 322 QTc: 445 Interpretive Statements SINUS TACHYCARDIA WITH FREQUENT VENTRICULAR PREMATURE COMPLEXES Baseline artifact limits interpretation ITORY SUPERVISOR us Brandi CANELA ECG ORDERABLES Final Resu lt [facility] RAD * CORONAVIRUS (COVID 19) (10/03/2024 4:27 PM TERRITORY SUPERVISOR) CORONAVIRUS SARS COV 2 RNA NEGATIVE NEGATIVE 10/03/2024 5:30 PM TERRITORY SUPERVISOR [facility] Comment: NEGATIVE RESULTS DO NOT RULE [...] SARS-COV-2. SPECIMEN TYPE NASAL 10/03/2024 4:32 PM TERRITORY SUPERVISOR [facility] NASAL STRUCTURE / Unknown 10/03/2024 4:27 PM TERRITORY SUPERVISOR us Sarthak Hendrickson MD MICROBIOLOGY - GENERAL ORDERABL ES Final Result [facility] [address] [place] [address], * INFLUENZA A & B (10/03/2024 4:27 PM TERRITORY SUPERVISOR) SPECIMEN TYPE NASAL 10/03/2024 4:58 PM TERRITORY SUPERVISOR [facility] INFLUENZA A NEGATIVE NEGATIVE 10/03/2024 5:30 PM TERRITORY SUPERVISOR [facility] INFLUENZA B NEGATIVE NEGATIVE 10/03/2024 5:30 PM TERRITORY SUPERVISOR [facility] Comment: Interpretation: Negative for Influenza A [...] NASOPHARYNGEAL SWAB / Unknown 10/03/2024 4:27 PM TERRITORY SUPERVISOR Sarthak Hendrickson MD MICROBIOLOGY - GENERAL ORDERABL ES Final Result Performing Organization Address [facility] de Phone Number [facility] [address] [place] [id number], * PROCALCITONIN (PCT) (10/03/2024 4:15 PM TERRITORY SUPERVISOR) Procalcitonin <0.05 0.00 - 0.49 NG/ML 10/03/2024 5:53 PM TERRITORY SUPERVISOR [facility] 10/03/2024 4:15 PM TERRITORY SUPERVISOR Brandi Aceves PA LABORATORY Final Resu lt Performing Organization Address [facility] de Phone Number [facility] [address] [place] [id number], * TSH W/REFLEX (10/03/2024 4:15 PM TERRITORY SUPERVISOR) TSH 0.922 0.358 - 3.74 uIU/ML 10/04/2024 1:37 AM TERRITORY SUPERVISOR [facility] Comment: HIGH DOSES OF BIOTIN MAY INTERFERE WITH THIS TEST RESULT. CORRELATION TO CLINICAL HISTORY AND PRESENTATION RECOMMENDED. FREE T4 NOT INDICATED 10/03/2024 4:15 PM TERRITORY SUPERVISOR Lilibeth Manzano APRN LABORATORY Final Resul t Performing Organization Address [facility] Co de Phone Number [facility] [address] [place] [id number], * (ABNORMAL) PRO-BRAIN NATRIURETIC PEPTIDE (10/03/2024 4:15 PM TERRITORY SUPERVISOR) PRO-B TYPE NATRIURETIC PEPTIDE 1,925(H) <450 PG/ML 10/03/2024 5:26 PM TERRITORY SUPERVISOR [facility] Comment: CUT POINTS ESTABLISHED BY INTERNATIONAL [...] 72% FOR ACUTE CHF. 10/03/2024 4:15 PM TERRITORY SUPERVISOR Brandi Aceves PA LABORATORY Final Resu lt Performing Organization Address City/[facility]/ZIP Co de Phone Number [facility] [address] [place] [address], [place] [phone] * STREP PNEUMO AG URINE (10/03/2024 4:15 PM TERRITORY SUPERVISOR) S. PNEUMONIAE URINARY AG NEGATIVE NEGATIVE 10/04/2024 12:04 PM TERRITORY SUPERVISOR [facility] URINE SPECIMEN OBTAINED BY CLEAN CATCH PROCEDURE / Unknown 10/03/2024 4:15 PM TERRITORY SUPERVISOR Lilibeth Manzano APRN MICROBIOLOGY - GENERAL ORDE NAFISA Final Result [facility] [address] [place] [address], [place] [phone] * LEGIONELLA AG URINE (10/03/2024 4:15 PM TERRITORY SUPERVISOR) LEGIONELLA ANTIGEN (URINE) NEGATIVE NEGATIVE 10/04/2024 12:04 PM TERRITORY SUPERVISOR [facility] URINE SPECIMEN / Unknown 10/03/2024 4:15 PM TERRITORY SUPERVISOR us Lilibeth Manzano APRN MICROBIOLOGY - GENERAL JAI SKELTON Final Result [facility] ([facility] [address] [place] [address], [place] [phone] * URINALYSIS, AUTO, COMPLETE (10/03/2024 4:15 PM TERRITORY SUPERVISOR) SPECIMEN TYPE URINE CLEAN CATCH 10/03/2024 4:19 PM TERRITORY SUPERVISOR [facility] COLOR (U) LIGHT YELLOW 10/03/2024 5:13 PM TERRITORY SUPERVISOR [facility] TRANSPARENCY CLEAR 10/03/2024 5:13 PM TERRITORY SUPERVISOR [facility] SPECIFIC GRAVITY (U) 1.009 1.001 - 1.030 10/03/2024 5:13 PM TERRITORY SUPERVISOR [facility] U PH 6.5 5.0 - 9.0 10/03/2024 5:13 PM [facility] LEUKOCYTES (U) NEGATIVE NEGATIVE 10/03/2024 5:13 PM [facility] NITRITES NEGATIVE NEGATIVE 10/03/2024 5:13 PM [facility] PROTEIN RANDOM (U) NEGATIVE <30 MG/DL 10/03/2024 5:13 PM [facility] GLUCOSE (U) NORMAL NORMAL MG/DL 10/03/2024 5:13 PM [facility] KETONES MG/DL (U) NEGATIVE NEGATIVE MG/DL 10/03/2024 5:13 PM [facility] UROBILINOGEN NORMAL NORMAL MG/DL 10/03/2024 5:13 PM [facility] BILIRUBIN (U) NEGATIVE NEGATIVE MG/DL 10/03/2024 5:13 PM [facility] BLOOD (U) NEGATIVE NEGATIVE 10/03/2024 5:13 PM TERRITORY SUPERVISOR [facility] WBC/HPF 2 <6 /HPF 10/03/2024 5:13 PM TERRITORY SUPERVISOR [facility] RBC/HPF 2 <6 /HPF 10/03/2024 5:13 PM TERRITORY SUPERVISOR [facility] URINE SPECIMEN OBTAINED BY CLEAN CATCH PROCEDURE / Unknown 10/03/2024 4:15 PM TERRITORY SUPERVISOR Brandi CANELA URINE ORDERABLES Final Res ult Performing Organization Address City/[facility]/ZIP Co de Phone Number [facility] [address] [place] [address], [place] [phone] * TROPONIN, QUANT (10/03/2024 4:15 PM TERRITORY SUPERVISOR) TROPONIN I HIGH SENSITIVITY 44 <54 ng/L 10/03/2024 5:26 PM TERRITORY SUPERVISOR [facility] Comment: HIGH DOSES OF BIOTIN, TROPONIN-SPECIFIC AUTOANTIBODIES, AND ANTIBODY THERAPY CONTAINING HAMA MAY INTERFERE WITH THIS TEST RESULT. CORRELATION TO CLINICAL HISTORY AND PRESENTATION RECOMMENDED. 10/03/2024 4:15 PM TERRITORY SUPERVISOR Brandi CANELA LABORATORY Final Resu lt Performing Organization Address City/[facility]/ZIP Co de Phone Number [facility] [address] [place] [address], [place] [phone] * PHOSPHORUS, INORGANIC PHOSPHATE (10/03/2024 4:15 PM TERRITORY SUPERVISOR) PHOSPHORUS 3.4 2.5 - 4.9 MG/DL 10/04/2024 1:37 AM TERRITORY SUPERVISOR [facility] 10/03/2024 4:15 PM TERRITORY SUPERVISOR Lilibeth Manzano CLIENT SERVICE COORDINATOR LABORATORY Final Resul t Performing Organization Address City/[facility]/ZIP Co de Phone Number [facility] [address] [place] [address], [place] [phone] * MAGNESIUM (10/03/2024 4:15 PM TERRITORY SUPERVISOR) MAGNESIUM 2.3 1.8 - 2.4 MG/DL 10/04/2024 1:37 AM TERRITORY SUPERVISOR [facility] Comment:SLIGHT HEMOLYSIS, RE SULT MAY BE AFFECTED. 10/03/2024 4:15 PM TERRITORY SUPERVISOR Lilibeth Manznao CLIENT SERVICE COORDINATOR LABORATORY Final Resul t Performing Organization Address [facility] Co de Phone Number [facility] [address] [place] [address], [place] [phone] * (ABNORMAL) ARTERIAL BLOOD GAS (10/03/2024 4:05 PM TERRITORY SUPERVISOR) PH ARTERIAL 7.49(H) 7.35 - 7.45 10/03/2024 4:15 PM TERRITORY SUPERVISOR [facility] PCO2 33.0(L) 35.0 - 45.0 MMHG 10/03/2024 4:15 PM TERRITORY SUPERVISOR [facility] PO2 90.0 83.0 - 108.0 MMHG 10/03/2024 4:15 PM TERRITORY SUPERVISOR [facility] TOTAL CO2 ARTERIAL 26.1(H) 19.0 - 24.0 MMOL/L 10/03/2024 4:15 PM TERRITORY SUPERVISOR [facility] BASE EXCESS 2.2 0.0 - 3.0 MMOL/L 10/03/2024 4:15 PM [facility] O2 SATURATION 98 94.0 - 98.0 % 10/03/2024 4:15 PM [facility] BICARB ARTERIAL 25.1 21.0 - 28.0 MMOL/L 10/03/2024 4:15 PM TERRITORY SUPERVISOR [facility] CHANDAN TEST CHANDAN TEST PERFORMED 10/03/2024 4:12 PM TERRITORY SUPERVISOR [facility] O2 ADMIN ARTERIAL 28 10/03/2024 4:12 PM TERRITORY SUPERVISOR [facility] DRAW SITE ARTERIAL RT RADIAL 10/03/2024 4:12 PM TERRITORY SUPERVISOR [facility] 10/03/2024 4:05 PM TERRITORY SUPERVISOR us Brandi CANELA LABORATORY Final Resu lt [facility] [address] [place] [address], [place] [phone] * XR CHEST PA+LAT (10/03/2024 3:05 PM TERRITORY SUPERVISOR) Anatomical Region Laterality Modality Chest Radiographic Angie ging 10/03/2024 3:12 PM TERRITORY SUPERVISOR Impressions 10/03/2024 3:17 PM TERRITORY SUPERVISOR =====IMPRESSION:===== 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 Superimposed acute/active airway infection/inflammation is not excluded. Ordered By: BRANDI ACEVES Interpreted By: Sulema Pinto MD, 10/03/2024 3:12 PM Narrative 10/03/2024 3:17 PM TERRITORY SUPERVISOR [facility] [address] [place], [place] [address] Examination: Chest x-ray 2 view Exam date/time: [...] Procedure Note Sulema Pinto MD - 10/03/[address] [address] Examination: Chest x-ray 2 view Exam date/time: [...] lt * Home Sleep Study - WatchPat (64918/[id number]) (09/22/2024 3:00 PM TERRITORY SUPERVISOR) Narrative [facility] - 09/22/2024 3:00 PM TERRITORY SUPERVISOR Diego Freeman MD 09/30/2024 10:28 AM Patient Information First Name: HERIBERTO Last Name: CHERYL ID: [id number] Date: 1940 Age: 84 Gender: Female BMI: [...] (Events per Minute): 4.8 Rev. Printed on:09/30/2024 09/22/2024,[id number],1940,Female *The automatic analysis events or stages have been edited. 539 Page 1 of 2 Sleep Study Report SUMMARY/DIAGNOSIS 1.) Mild Obstructive Sleep Apnea. 2.) Premature beats were noted and minimal atrial fibrillation was suspected during this study. RECOMMENDATIONS [place] treatment option should be discussed with the [...] snoring and other sleep-related issues, such as PORTFOLIO ADMINISTRATOR depressants, especially at bedtime. Raw data reviewed and electronically signed by: Diego Freeman on 09/30/2024 10:26:04 AM at 4:26:10PM, [facility] us Naeem Grissom MD SLEEP CENTER ORDERABLES Fin al Result Performing Organization Address City/State/[facility] Co de Phone Number [facility] [address] [place] [address], from Last 3 Months Insurance [employer] MEDICARE Advance Directives * Full Code (Latest Code Status on File) Date Activated Date Inactivated Comments 10/09/2024 3:14 PM * Full Code Date Activated Date Inactivated Comments 10/04/2024 12:11 AM 10/08/2024 6:04 PM Care Teams Mid Level Project Manager Relationship Specialty Start Date End Date Pawan Echevarria MD [address] [facility] [address] [address] PCP - General FAMILY PRACTICE 04/17/23
--- OUTSIDE RECORDS SUMMARY | 2024-11-06 11:55 | XMS_ITS | Encounter Summary ---
Author Organization [facility] Address [address] [place] [address] Phone Care Team Providers Care Core Filer Name Role Phone Geeta Crisostomo MD Primary Care Provider [phone] Gavin Gross MD Primary Care Provider [phone] Pawan Echevarria MD Primary Care Provider [phone] Encounter Details Date Type Department Care Team [...] on file Legal Sex Female 3:43 AM PLASTICS WORKER Gender Identity Female 02/01/2022 8:55 AM CDT [...] on filedocumented in this encounter Care Teams Core Filer Relationship Specialty Start Date End Date Geeta Crisostomo MD [address] [place] [address] PCP - General Family Medicine 03/08/18 03/28/22 Gavin Gross MD [address] [place] [address] PCP - General Family Medicine 03/29/22 06/05/23 Pawan Echevarria MD [address] [place] [address] [place] [address] PCP - General Family Medicine 06/06/23 documented as of this encounter
--- OUTSIDE RECORDS SUMMARY | 2024-11-06 11:55 | XMS_ITS | Encounter Summary ---
Author Organization [facility] Address [address] [place] [address] Care Team Providers Care Cushion Filler Name Role Phone Pawan Echevarria MD Primary Care Provider [phone] Encounter Details Date Type Department Care Team (Late st Contact Info) Description 11/04/2024 External Device Data [place] ABSTRACTION Provider, Abstract NO ADDRESS ON FILE Social History Tobacco Use Types Packs/Day Years [...] on file documented as of this encounter Visit Diagnoses Not on filedocumented in this encounter Care Teams Cushion Filler Relationship Specialty Start Date End Date Pawan Echevarria MD [address] [place] [phone] PCP - General Family Practice 11/29/23 documented as of this encounter
--- OUTSIDE RECORDS SUMMARY | 2024-11-06 11:55 | XMS_ITS | Encounter Summary ---
Author Organization [facility] Address [address] [place] [address] Phone Care Team Providers Care Diplomatic Courier Name Role Phone Geeta Crisostomo MD Primary Care Provider [phone] Gavin Gross MD Primary Care Provider [phone] Pawan Echevarria MD Primary Care Provider [phone] Encounter Details Date Type Department Care Team [...] on file Legal Sex Female 3:43 AM GROUP TESTER Gender Identity Female 02/01/2022 8:55 AM CDT [...] on filedocumented in this encounter Care Teams Diplomatic Courier Relationship Specialty Start Date End Date Geeta Crisostomo MD [address] [place] [address] PCP - General Family Medicine 03/08/18 03/28/22 Gavin Gross MD [address] [place] [address] PCP - General Family Medicine 03/29/22 06/05/23 Pawan Echevarria MD [address] [place] [address] [place] [address] PCP - General Family Medicine 06/06/23 documented as of this encounter
--- OUTSIDE RECORDS SUMMARY | 2024-11-06 11:55 | XMS_ITS | Referral Summary ---
Author Organization [facility] Address [address] [place] [address] Phone Care Team Providers Care Studio Producer Name Role Phone Pawan Echevarria MD Primary Care Provider [phone] Encounters Date Type Department Care Team Description 10/01/2024 1:15 PM SATELLITE SPECIALIST Office Visit [facility] Medical [facility] Cardiology [address] [place] [address] [place] [phone] Damien Plaza MD Nonischemic cardiomyopathy (CMS/HCC) (HCC) (Primary Dx); PVC (premature ventricular contraction); Anxiety; Chronic hypoxic respiratory failure, on home oxygen therapy (HCC); YUNIOR (obstructive sleep apnea) 09/01/2024 Telephone [facility] Cardiology [address] [place] [address] [place] [phone] Heaven Rubin NP 08/29/2024 3:00 PM SATELLITE SPECIALIST Ancillary Procedure [facility] Cardiology [address] [place] [address] [place] [phone] Nonischemic cardiomyopathy (CMS/HCC) (HCC) 08/26/2024 Telephone [facility] Cardiology [address] [place] [address] [place] [phone] Heaven Rubin NP Med Management 08/21/2024 Telephone [facility] Cardiology [address] [place] [address] [place] [phone] Heaven Rubin NP from Last 3 Months [...] CMP checked today. - Spoke with her acting professor, Dr. Abdon Flynn ([facility]), to discuss the possibility of sparing [...] 81 y.o. 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 8 COPD (chronic obstructive pulmonary [...] on file Legal Sex Female 3:43 AM SATELLITE SPECIALIST Gender Identity Female 02/01/2022 8:55 AM CDT Sexual Orientation Straight 02/01/2022 8: 55 AM CDT Last Filed Vital Signs Vital Sign Reading Time Taken Comments Blood Pressure 150/68 10/01/2024 1:07 PM SATELLITE SPECIALIST Pulse 56 10/01/2024 1:07 PM SATELLITE SPECIALIST Temperature 36.9 C (98.5 F) 10/04/2022 11:40 AM SATELLITE SPECIALIST Respiratory Rate 20 03/18/2024 11:5 3 AM CDT Oxygen Saturation 91% 10/01/2024 1:0 7 PM SATELLITE SPECIALIST 2 Liters oxygen Inhaled Oxygen Concentration - - Weight 59.4 kg (131 lb) 10/01/2024 1:07 PM SATELLITE SPECIALIST Height 162.6 cm (5' 4 ) 10/01/2024 1:07 PM SATELLITE SPECIALIST Body Mass Index 22.49 10/01/2024 1:07 PM SATELLITE SPECIALIST Plan of Treatment Not on file Procedures Procedure Name Priority Date/Time Associated Diagnosis Comments ELECTROCARDIOGRAM REPORT Routine 025 3:58 PM SATELLITE SPECIALIST PVC (premature ventricular contraction) TRANSTHORACIC ECHO (TTE) LIMITED/FOLLOW UP WO DOPPLER/CF WO CONTRAST Routine 08/29/2024 3:55 PM SATELLITE SPECIALIST Nonischemic cardiomyopathy (CMS/HCC) (HCC) from Last 3 Months Results * Electrocardiogram Report (10/01/2024 3:58 PM SATELLITE SPECIALIST) Damien Plaza MD ECG ORDERABLES Final Result * TRANSTHORACIC ECHO (TTE) LIMITED/FOLLOW UP WO DOPPLER/CF WO CONTRAST (08/29/2024 3:55 PM SATELLITE SPECIALIST) Anatomical Region Laterality Modality Ultrasound 08/29/2024 3:50 PM SATELLITE SPECIALIST Narrative 08/29/2024 4:17 PM SATELLITE SPECIALIST [facility] Cardiology [address], [place] [address] [address], [place] [address] P:[phone] P:[phone] Echocardiographic Report Patient Name: HERIBERTO TEJEDA M : 1940 Study Date: 08/29/2024 3:50:42 PM Gender: F Tech: KELLEY Location: [place] Provider: HEAVEN RUBIN Height(Cm): 163 BSA: 1.65 [...] FINDINGS: Interpretation Site: Exam was interpreted at [facility]. Left Ventricle: Normal left ventricular size. [...] By: Ish Vidal MD 08/29/2024 4:17:28 PM SATELLITE SPECIALIST 40-45 Procedure Note Ish Vidal MD - 08/29/2024 [facility] Cardiology [address] [facility] [address], [place] [address] [address] [facility] [address], [place] [address] P:[phone] P:[phone] Echocardiographic Report Patient Name: HERIBERTO TEJEDA M : 1940 Study Date: 08/29/2024 3:50:42 PM Gender: F Tech: KELLEY Location: [place] Provider: HEAVEN RUBIN Height(Cm): 163 BSA: 1.65 [...] FINDINGS: Interpretation Site: Exam was interpreted at [facility]. Left Ventricle: Normal left ventricular size. [...] By: Ish Vidal MD 08/29/2024 4:17:28 PM SATELLITE SPECIALIST 40-45 Heaven Rubin NP CV ECHO PROCEDURES Final Result from Last 3 [place] [address] MEDICARE FOR LIFE MEDICARE FOR LIFE MEDICARE FOR LIFE Care Teams Studio Producer Relationship Specialty Start Date End Date Pawan Echevarria MD [facility] [place] [address] PCP - General Family Medicine 06/06/23
--- OUTSIDE RECORDS SUMMARY | 2024-11-06 11:55 | XMS_ITS | Encounter Summary ---
Author Organization [facility] Address [facility] [place] [address] Care Team Providers Care Underground Electrician Name Role Phone Edilberto Crisostomo MD Primary Care Provider [phone] Gavin Gross MD Primary Care Provider [phone] Pawan Echevarria MD Primary Care Provider [phone] Encounter Details Date Type Department Care Team (Late st Contact Info) Description 03/22/2021 MyChart Message Enc [facility] - [address], [address] [place] [id number] Abdon Flynn MD [address] [place] [address] [address] [place] [address] Referral Request Social History Tobacco Use Types [...] Sex Assigned at Female 10/03/2024 2:27 PM TRAINING ADMINISTRATOR Legal Sex Female 4:16 PM CDT Gender Identity Not on file Sexual Orientation Not on file documented as of this encounter Plan of Treatment Upcoming Encounters Date Type Department Care Team (Late st Contact Info) Description 01/14/2025 11:40 AM CDT Office Visit [facility] - [facility] [address] [facility] [address] [place] [address] Abdon Flynn MD [address] [facility] [address] [place] [address] documented as of this encounter Visit Diagnoses Not on filedocumented in this encounter Additional Health Concerns Infection Onset Date Last Indicated Resolved Time COVID-19 Rule Out 10/03/2024 10/03/2024 10/03/2024 5:30 PM TRAINING ADMINISTRATOR COVID-19 Rule Out 10/04/2024 10/04/2024 10/04/2024 3:19 AM TRAINING ADMINISTRATOR Influenza - Seasonal 10/04/2024 10/04/2024 025 12:32 AM TRAINING ADMINISTRATOR documented as of this encounter Care Teams Underground Electrician Relationship Specialty Start Date End Date Edilberto Crisostomo MD [address] [place] [address] PCP - General FAMILY PRACTICE 12/10/17 07/12/22 Gavin Gross MD [address] [facility] [address] [place] [address] PCP - General FAMILY PRACTICE 07/13/22 04/16/23 [place] [address] [place] [address] [address] [place] [address] PCP - General FAMILY PRACTICE 04/17/23 documented as of this encounter
--- OUTSIDE RECORDS SUMMARY | 2024-11-06 11:55 | XMS_ITS | Encounter Summary ---
Author Organization [facility] Address [facility] [place] [address] Care Team Providers Care Criminal Legal Assistant Name Role Phone Edilberto Crisostomo MD Primary Care Provider [phone] Gavin Gross MD Primary Care Provider [phone] Pawan Echevarria MD Primary Care Provider [phone] Encounter Details Date Type Department Care Team (Late st Contact Info) Description 12/03/2020 Signpost Message Enc [facility] - [address], [address] [place] [address] Vik, [facility] Provider Provider Social History Tobacco Use Types [...] Sex Assigned at Female 10/03/2024 2:27 PM BRONC BUSTER Legal Sex Female 4:16 PM CDT Gender Identity Not on file Sexual Orientation Not on file documented as of this encounter Plan of Treatment Upcoming Encounters Date Type Department Care Team (Late st Contact Info) Description 01/14/2025 11:40 AM CDT Office Visit [facility] - [facility] [address] [facility] [address] [place] [address] Abdon Flynn MD [address] [facility] [address] [place] [address] documented as of this encounter Visit Diagnoses Not on filedocumented in this encounter Additional Health Concerns Infection Onset Date Last Indicated Resolved Time COVID-19 Rule Out 10/03/2024 10/03/2024 10/03/2024 5:30 PM BRONC BUSTER COVID-19 Rule Out 10/04/2024 10/04/2024 10/04/2024 3:19 AM BRONC BUSTER Influenza - Seasonal 10/04/2024 10/04/2024 025 12:32 AM BRONC BUSTER documented as of this encounter Care Teams Criminal Legal Assistant Relationship Specialty Start Date End Date Edilberto Crisostomo MD [address] [place] [address] PCP - General FAMILY PRACTICE 12/10/17 07/12/22 Gavin Gross MD [address] [facility] [address] [place] [address] PCP - General FAMILY PRACTICE 07/13/22 04/16/23 Pawan Echevarria MD [address] [facility] [address] [place] [address] PCP - General FAMILY PRACTICE 04/17/23 documented as of this encounter
--- OUTSIDE RECORDS SUMMARY | 2024-11-06 11:56 | XMS_ITS | Encounter Summary ---
Author Organization [facility] [place] [facility] Address [facility] [place] [address] Care Team Providers Care Vascular Radiologist Name Role Phone Gavin Gross MD Primary Care Provider [phone] Pawan Echevarria MD Primary Care Provider [phone] Encounter Details Date Type Department Care Team (Late st Contact Info) Description 12/08/2022 MyChart Message Enc [facility] - [address] [place] [address] Abdon Flynn MD [address] [place] [address] [address] [place] [address] Rx for Nebulizer Social History Tobacco Use [...] Sex Assigned at Female 10/03/2024 2:27 PM CAKE MAKER Legal Sex Female 4:16 PM CDT Gender [...] Description 01/14/2025 11:40 AM CDT Office Visit [facility] - [facility] [address] [facility] [address] [place] [address] Abdon Flynn MD [address] [place] [address] [address] [place] [address] documented as of this encounter Visit Diagnoses Not on filedocumented in this encounter Additional Health Concerns Infection Onset Date Last Indicated Resolved Time COVID-19 Rule Out 10/03/2024 10/03/2024 10/03/2024 5:30 PM CAKE MAKER COVID-19 Rule Out 10/04/2024 10/04/2024 10/04/2024 3:19 AM CAKE MAKER Influenza - Seasonal 10/04/2024 10/04/2024 025 12:32 AM CAKE MAKER Assessment Noted Time PHQ-9 Depression Total Score: 0 12/13/19 22 11:54 AM CDT documented as of this encounter Care Teams Vascular Radiologist Relationship Specialty Start Date End Date Gavin Gross MD [address] [facility] [address] [place] [address] PCP - General FAMILY PRACTICE 07/13/22 04/16/23 Pawan Echevarria MD [address] [facility] [address] [place] [address] PCP - General FAMILY PRACTICE 04/17/23 documented as of this encounter
--- OUTSIDE RECORDS SUMMARY | 2024-11-06 11:56 | XMS_ITS | Encounter Summary ---
Author Organization [facility] Address [address] [place] [address] Care Team Providers Care Hide Spreader Name Role Phone Gavin Gross MD Primary Care Provider [phone] Paawn Echevarria MD Primary Care Provider [phone] Encounter Details Date Type Department Care Team (Late Contact Info) Description 03/14/2023 MyChart Message Enc [facility] Medical Group - [facility] [address] [place], [place] [id number] [facility], [facility] Provider Air Quality Message Social History Tobacco [...] Sex Assigned at Female 10/03/2024 2:27 PM WRAPPER STITCHER Legal Sex Female 4:16 PM CDT Gender Identity Not on file Sexual Orientation Not on file documented as of this encounter Plan of Treatment Upcoming Encounters Date Type Department Care Team (Late Contact Info) Description 01/14/2025 11:40 AM CDT Office Visit [facility] Medical Group Multispecialty Care - [facility] [address] [facility] [place] [address] Abdon Flynn MD [facility] [facility] [address] [place] [address] documented as of this encounter Visit Diagnoses Not on filedocumented in this encounter Additional Health Concerns Infection Onset Date Last Indicated Resolved Time COVID-19 Rule Out 10/03/2024 10/03/2024 10/03/2024 5:30 PM WRAPPER STITCHER COVID-19 Rule Out 10/04/2024 10/04/2024 10/04/2024 3:19 AM WRAPPER STITCHER Influenza - Seasonal 10/04/2024 10/04/2024 025 12:32 AM WRAPPER STITCHER Assessment Noted Time PHQ-9 Depression Total Score: 0 12/13/19 22 11:54 AM CDT documented as of this encounter Care Teams Hide Spreader Relationship Specialty Start Date End Date Gavin Gross MD [address] [place] [address] PCP - General FAMILY PRACTICE 07/13/22 04/16/[address] [facility] [facility] [address] [place] [address] PCP - General FAMILY PRACTICE 04/17/23 documented as of this encounter
--- OUTSIDE RECORDS SUMMARY | 2024-11-06 11:56 | XMS_ITS | Clinical Summary ---
Author Organization [facility] Address [address] [address] Care Team Providers Care Manager Care Management Name Role Phone Pawan Echevarria MD Primary Care Provider [phone] Allergies Active Allergy Reactions Criticality Noted Date [...] Encounters Date Type Department Care Team Description 11/04/2024 External Device Data [facility] Provider, Abstract 10/09/2024 External Device Data [facility] Provider, Abstract 10/08/2024 External Device Data [facility] Provider, Abstract 10/07/2024 External Device Data [facility] Provider, Abstract 10/03/2024 Orders Only [facility] Oncology and Hematology [address] [place] [id number] Warren Vaughn MD 10/02/2024 Orders Only [facility] Oncology and Hematology - [address] [place] [id number] Warren Vaughn MD from Last 3 Months [...] 02/14/2016 INFLUENZA VACCINE (#1) 2024 COVID-19 Vaccine (3 - season) 05/18/202401/2021, 10/26/2020 OSTEOPOROSIS SCREENING Completed 06/02/2024 Procedures Procedure Name Priority Date/Time Associated Diagnosis Comments CANCER ANTIGEN 15-3 Routine 10/03/2024 2 :11 PM ADULT DAYCARE COORDINATOR CBC WITH DIFFERENTIAL Routine 10/01/2024 3:09 PM ADULT DAYCARE COORDINATOR COMPREHENSIVE METABOLIC PANEL Routine 10/01/2024 11:45 AM ADULT DAYCARE COORDINATOR from Last 3 Months Results * CANCER ANTIGEN 15-3 (10/03/2024 2:11 PM ADULT DAYCARE COORDINATOR) Blood us Warren Vaughn MD CHEMISTRY ORDERABLES Final Resu lt * CBC WITH DIFFERENTIAL (10/01/2024 3:09 PM ADULT DAYCARE COORDINATOR) Blood us Warren Vaughn MD HEMATOLOGY ORDERABLES Final Res ult * COMPREHENSIVE METABOLIC PANEL (10/01/2024 11:45 AM ADULT DAYCARE COORDINATOR) Blood us Warren Vaughn MD CHEMISTRY ORDERABLES Final Resu lt from Last 3 Months Insurance MEDICARE PART A AND B FOR LIFE Care Teams Manager Care Management Relationship Specialty Start Date End Date Pawan Echevarria MD [address] [place] [phone] PCP - General Family Practice 11/29/23
--- NOTE | 2024-11-25 15:56 | WPDHOLTEREM ---
Holter/Event Monitor Holter/Event Monitor Date of procedure: 11/06/24 Holter/Event Procedure: 3-7 Day Holter Monitor Indications: Palpitations Conclusion: 1. 7 days holter monitor on 11/06/24. 2. Predominant rhythm is sinus rhythm. HR range 49-176 bpm; average HR 83 bpm. HR at 49 bpm was on 11/13/24 at 4:13 am. 3. There are rare premature supraventricular complexes, rare supraventricular couplets, and rare supraventricular triplets. There are 958 episodes of supraventricular tachycardia, fastest at 135 bpm and longest lasting 25 seconds. 4. There are frequent premature ventricular complexes with burden of 18%, rare ventricular couplets and rare ventricular triplets. There are 11 episodes of ventricular tachycardia, with fastest at 176 bpm and longest lasting 12 beats. 5. No significant pauses greater than 3 seconds. Underlying IVCD present. 6. Patient reports 4 episodes of symptoms of irregular beats/hot flash/weakness, rapid breathing,lightheadedness, shortness of breath, unbalanced which demonstrate sinus rhythm, HR range 81-98 bpm with with 4 episodes with PVC's.
== END 2024-11-06 11:39 | disposition home or self-care (01) ==
LOC: ANHCARD 11:39
PROVIDERS: PCP Family Medicine; Visit Provider Nurse Practitioner Family
DX: I49.1 Atrial premature depolarization (principal); I47.10 Supraventricular tachycardia, unspecified; I49.3 Ventricular premature depolarization; I47.20 Ventricular tachycardia, unspecified; I45.4 Nonspecific intraventricular block; R00.2 Palpitations; M54.9 Dorsalgia, unspecified
CPT/HCPCS: 93242

== ENCOUNTER 2024-11-20 08:57 | Outpatient (CLI) | payer MEDICARE, OTHER, SELFPAY ==
--- NOTE | ~2024-11-20 | US_ITS ---
EXAMINATION: 1. US_BXSTAXLIMG_US 2. US biopsy lymph node DATE: 11/20/2024 11:00 INDICATION: Malignant neoplasm of unspecified site of left breast. TECHNIQUE: The procedure including the risks, benefits, and alternatives was discussed with the patie nt. Risks discussed included bleeding and infection. The patient understood the risks and agreed to p roceed. The skin of the left axilla was prepped and draped in usual sterile fashion. Anesthetic was administered with 1% lidocaine at the skin and in the deeper tissue. A 14-gauge core biopsy needle w as then used to obtain 3 core biopsy specimens from a 1.6 x 0.9 x 0.8 cm lymph node in the left axill a under continuous sonographic guidance. A Mammotome HydroMARK open coil marker was placed under sono graphic guidance. A 14-gauge core biopsy needle was then used to obtain 3 core biopsy specimens from a 1.7 x 1.6 x 0.8 cm mass in the left axilla at the site of the surgical scar under continuous sonographic guidance. A Mammotome HydroMARK butterfly marker was placed under sonographic guidance. The entry site was cleane d and dressed. There were no immediate complications. FINDINGS: Ultrasound images demonstrate the needle in a lymph node in the left axilla. Ultrasound skylar ges demonstrate the needle in a left axillary mass at the surgical scar. IMPRESSION: 1. Successful ultrasound-guided core needle biopsy of a left axillary lymph node with marker placemen t. 2. Successful ultrasound-guided core needle biopsy of a left axillary mass at the surgical scar with marker placement. Reviewed, dictated and finalized at location A. ERY SPECIALIST IMPRESSION: 1. Successful ultrasound-guided core needle biopsy of a left axillary lymph nod e with marker placement. 2. Successful ultrasound-guided core needle biopsy of a left axillary mass at t he surgical scar with marker placement.
--- OUTSIDE RECORDS SUMMARY | 2024-11-20 09:32 | XMS_ITS | Encounter Summary ---
Author Organization [facility] Address [address] [place] [address] Phone Care Team Providers Care Encyclopedia Research Worker Name Role Phone Geeta Crisostomo MD Primary Care Provider [phone] Gavin Gross MD Primary Care Provider [phone] Pawan Echevarria MD Primary Care Provider [phone] Encounter Details Date Type Department Care Team [...] on file Legal Sex Female 3:[address] TECH Gender Identity Female 02/01/2022 8:55 AM CDT [...] on filedocumented in this encounter Care Teams Encyclopedia Research Worker Relationship Specialty Start Date End Date Geeta Crisostomo MD [address] [place] [address] PCP - General Family Medicine 03/08/18 03/28/22 Gavin Gross MD [address] [place] [address] PCP - General Family Medicine 03/29/22 06/05/23 Pawan Echevarria MD [address] [place] [address] [place] [address] PCP - General Family Medicine 06/06/23 documented as of this encounter
--- OUTSIDE RECORDS SUMMARY | 2024-11-20 09:32 | XMS_ITS | Encounter Summary ---
Author Organization [facility] - [facility] Address [facility] [place] [address] Care Team Providers Care Shellfish Harvester Name Role Phone Pawan Echevarria MD Primary Care Provider [phone] Encounter Details Date Type Department Care Team (Late st Contact Info) Description 10/03/2024 MyChart Message Enc [facility] Medical Group Multispecialty Care - [facility] [address] [facility] [place] [phone] Abdon Flynn MD [address] [place], [place] [address] [place] [address] Fever/Shortness of Breath Social History Tobacco Use Types Packs/Day Years Used Date Smoking Tobacco: Former Cigarettes 0.3 6 0 02/25/1974 - 02/26/1980 Smokeless Tobacco: Never Alcohol Use Standard Drinks/Week Comments Yes 0 (1 standard drink = 0.6 oz pur e alcohol) minimal rare use [facility] Utilities Answer Date Recorded In the [...] and Family Not on file 10/04/2024 Attends [employer] Not on file 10/04 Active Member [...] Recorded Patient Health Questionnaire-2 Score 2 12/05/2022 [facility] - Occupational Stress [...] any time in the past 12 m [facility], were you homeless or living in a fci (including now)? 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 2:27 PM CONTRACTS ATTORNEY Legal Sex Female 4:16 PM CDT Gender Identity Not on file Sexual Orientation Not on file documented as of this encounter Functional Status documented as of this encounter Mental Status * Question Answer Entry Date Author Status Because of a physical, mental, or emotional condition, do you have serious difficulty concentrating, remembering, or making decisions? No 10/04/2024 5:00 PM CONTRACTS ATTORNEY Nighat Prado R N Active documented in this encounter Plan of Treatment Upcoming Encounters Date Type Department Care Team (Late st Contact Info) Description 01/14/2025 11:40 AM CDT Office Visit [facility] Medical Group Multispecialty Care - [facility] [address] [facility] [place] [id number] Abdon Flynn MD [address] [place] [address] [address] [place] [address] documented as of this encounter Visit Diagnoses Not on filedocumented in this encounter Additional Health Concerns Infection Onset Date Last Indicated Resolved Time COVID-19 Rule Out 10/03/2024 10/03/2024 10/03/2024 5:30 PM CONTRACTS ATTORNEY COVID-19 Rule Out 10/04/2024 10/04/2024 10/04/2024 3:19 AM CONTRACTS ATTORNEY Influenza - Seasonal 10/04/2024 10/04/2024 025 12:32 AM CONTRACTS ATTORNEY Assessment Noted Time PHQ-9 Depression Total Score: 0 12/13/19 22 11:54 AM CDT documented as of this encounter Care Teams Shellfish Harvester Relationship Specialty Start Date End Date Pawan Echevarria MD [address] [facility] [address] [address] PCP - General FAMILY PRACTICE 04/17/23 documented as of this encounter
--- OUTSIDE RECORDS SUMMARY | 2024-11-20 09:32 | XMS_ITS | Clinical Summary ---
Author Organization [facility] Address [facility] [place] [address] Care Team Providers Care Yard Spotter Name Role Phone Pawan Echevarria MD Primary Care Provider [phone] Allergies Active Allergy Reactions Criticality Noted Date Comments Ipratropium Unknown 07/04/2018 Levofloxacin Hallucinations Medium 10/06/2024 Sathish's Pain Patient reported during admission 09/2024 after [...] (NEBULIZER/TUBING /MOUTHPIECE) KitIndications:Br onchiectasis without complication (CMS/HCC [facility]HS/[facility]) 1 each by Does not apply route every 4 (four) hours as needed. 1 kit 12/06/19 23 Active sodium chloride 3 % NEBULIZER solutionIndicatio ns:Mixed simple and mucopurulent chronic bronchitis (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 COPD (chronic obstructive pu lmonary disease) ([facility]) 03/05/2018 History of Pseudomonas pneumonia 01/27/2018 Pleural thickening 01/27/2018 Bacterial infection 12/13/2017 Chronic cough 12/10/2017 Asthma exacerbation (HHS/HCC) 12/10/2017 Wheeze 12/10/2017 Resolved Problems Problem Noted Date Diagnosed Date Resolved Date Encounter for preventive health examination 11/07/2017 05/28/2020 Encounters Date Type Department Care Team Description 11/18/2024 MyChart Message Enc [facility] Medical [facility] Multispecialty Care - [facility] [address] [facility] [place] [phone] Naeem Grissom MD Move Up Appointment 10/28/2024 Telephone [facility] [place] [address] [place] [phone] Naeem Grissom MD Results 10/24/2024 12:00 PM AVIATION SUPPORT EQUIPMENT REPAIRER Home Care Visit [address] [place] [address] Juana Gonzalez, RN SN OASIS DISCHARGE/ASSESSMENT 10/24/2024 Home Care Visit [address] [place] [address] [place] [address] Juana Gonzalez, RN [facility] INTERDISCIPLINARY [facility] 10/22/2024 11:30 AM AVIATION SUPPORT EQUIPMENT REPAIRER Home Care Visit [facility] [address] [place] [address] [place] [address] Juana Gonzalez, RN SN HOME VISIT 10/17/2024 9:45 AM AVIATION SUPPORT EQUIPMENT REPAIRER Home Care Visit [facility] [address] [place] [address] [place] [address] Juana Gonzalez, RN SN HOME VISIT 10/14/2024 1:30 PM AVIATION SUPPORT EQUIPMENT REPAIRER Home Care Visit [facility] [address] [place] [address] [place] [address] Iris Chauhan od, LPN SN HOME VISIT 10/13/2024 4:00 PM AVIATION SUPPORT EQUIPMENT REPAIRER Home Care Visit [facility] [address] [place] [address] [place] [address] Olga Huertas, PT PT INITIAL EVALUATION 10/09/2024 10:30 AM AVIATION SUPPORT EQUIPMENT REPAIRER Home Care Visit [facility] Home Care [address] [place] [address] [place] [address] Juana Gonzalez RN SN OASIS START OF CARE 10/09/2024 Home Care Visit [facility] [address] [place] [address] [place] [address] Juana Gonzalez RN COC COORD OF CARE INTERDISCIPLINARY MTG 10/09/2024 Plan of Care Documentation [facility] Home Care [address] [place], [place] [id number] 10/08/2024 10:00 AM AVIATION SUPPORT EQUIPMENT REPAIRER Home Care Visit [facility] [address] [place] [address] [place] [address] Eveline Newton RN SN NON ADMIT SOC 10/06/2024 11:45 AM AVIATION SUPPORT EQUIPMENT REPAIRER Home Care Visit [facility] [address] [place], [place] [phone] Denice Lizarraga [employer] ANALYST VISIT 10/03/2024 3:39 PM AVIATION SUPPORT EQUIPMENT REPAIRER - 10/08/2024 3:59 PM AVIATION SUPPORT EQUIPMENT REPAIRER Hospital Encounter [facility] [place] [address] Sarthak Hendrickson MD Alexander, Kaci M, Nelson High DO Suresh, Aditya Krishna, MD Shortness Of Breath Discharge Disposition: Home with Home Health Care 10/03/2024 Travel 10/03/2024 MyChart Message Enc [facility] Medical Group Multispecialty Care - [facility] [address] [facility], [address] [place] [phone] Naeem Grissom MD Fever/Shortness of Breath 09/22/2024 2:51 PM AVIATION SUPPORT EQUIPMENT REPAIRER - 09/22/2024 11:59 PM AVIATION SUPPORT EQUIPMENT REPAIRER Hospital Encounter [facility] [address] [place] [address] Naeem Grissom MD Snoring Discharge Disposition: Home or Self Care (Routine Discharge) 09/22/2024 Travel 09/11/2024 10:20 AM AVIATION SUPPORT EQUIPMENT REPAIRER Office Visit [facility] Medical Group Multispecialty Care - [facility] [address] [facility] [place] [phone] Naeem Grissom MD Follow Up (Was at [facility] 08/2024 for UTI (had EKG and CXR [...] materials from doctor or pharmacy Never 10/24/2024 [facility] Utilities Answer Date Recorded In the past 12 months has th e Si TV, gas, oil, or water [employer] threatened to shut off services in your [...] and Family Not on file 10/04/2024 Attends [employer] Not on file 10/04 Active Member [...] Recorded Patient Health Questionnaire-2 Score 2 12/05/2022 [facility] Occupat ional [facility] - Occupational Stress [...] any time in the past [address] [facility], were you homeless or living in a care home (including now)? 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 2:27 PM AVIATION SUPPORT EQUIPMENT REPAIRER Legal Sex Female 4:16 PM CDT Gender Identity Not on file Sexual Orientation Not on file Last Filed Vital Signs Vital Sign Reading Time Taken Comments Blood Pressure 112/54 10/24/2024 12:28 PM AVIATION SUPPORT EQUIPMENT REPAIRER Pulse 78 10/24/2024 12:28 PM AVIATION SUPPORT EQUIPMENT REPAIRER Temperature 36.6 C (97.9 F) 10/14/2024 1:35 PM AVIATION SUPPORT EQUIPMENT REPAIRER Respiratory Rate 20 10/24/2024 12:28 PM AVIATION SUPPORT EQUIPMENT REPAIRER Oxygen Saturation 93% 10/24/2024 12:28 PM AVIATION SUPPORT EQUIPMENT REPAIRER Inhaled Oxygen Concentration - - Weight 59 kg (130 lb) 10/24/2024 12:28 PM AVIATION SUPPORT EQUIPMENT REPAIRER Height 162.6 cm (5' 4 ) 10/03/2024 8:42 PM AVIATION SUPPORT EQUIPMENT REPAIRER Body Mass Index 22.31 10/03/2024 8:42 PM AVIATION SUPPORT EQUIPMENT REPAIRER Plan of Treatment Upcoming Encounters Date Type Department Care Team (Late st Contact Info) Description 01/14/2025 11:40 AM CDT Office Visit [facility] Medical Group Multispecialty Care - [facility] [address] [facility] [place] [address] Naeem Grissom MD [address] [place] [address] Health Maintenance Due Date Last Done Comments Pneumococcal Vaccine: 65+ Years (1 of 2 - PCV) 1946 DTaP, Tdap and Td Vaccines ( 1 - Tdap) 02/14/1960 Zoster Vaccines (1 of 2) 1991 Annual Medicare Wellness Visit 2006 Dexa Scan (General) 2006 RSV Immunization or 60+ Years (1 - 1-dose 75+ series) 02/14/2016 COVID-19 Vaccine (3 - 2023-2 5 season) 2024 11/19/2020, 10/26/2020 Influenza Adult (#1) 2024 PHQ-2 (Physician [place]) 09/17/2024 10/25/2023 Meningococcal B Vaccine Aged Out [...] HOME O2 EVAL Routine 10/08/2024 11:26 AM AVIATION SUPPORT EQUIPMENT REPAIRER CBC W/DIFF AUTOMATED Routine 10/08/2024 5:46 AM AVIATION SUPPORT EQUIPMENT REPAIRER BASIC METABOLIC PANEL Routine 10/08/2024 5:46 AM AVIATION SUPPORT EQUIPMENT REPAIRER CBC W/DIFF AUTOMATED Routine 10/07/2024 6:07 AM AVIATION SUPPORT EQUIPMENT REPAIRER BASIC METABOLIC PANEL Routine 10/07/2024 6:07 AM AVIATION SUPPORT EQUIPMENT REPAIRER CBC W/DIFF AUTOMATED Routine 10/06/2024 6:13 AM AVIATION SUPPORT EQUIPMENT REPAIRER BASIC METABOLIC PANEL Routine 10/06/2024 6:13 AM AVIATION SUPPORT EQUIPMENT REPAIRER CBC W/DIFF AUTOMATED Routine 10/05/2024 8:03 AM AVIATION SUPPORT EQUIPMENT REPAIRER BASIC METABOLIC PANEL Routine 10/05/2024 8:03 AM AVIATION SUPPORT EQUIPMENT REPAIRER CULTURE RESPIRATORY W/ GRAM STAIN STAT 10/04/2024 1:32 PM AVIATION SUPPORT EQUIPMENT REPAIRER CULTURE, TB/AFB W/ STAIN STAT 10/04/2024 1:32 PM AVIATION SUPPORT EQUIPMENT REPAIRER COMPREHENSIVE METABOLIC PANEL STAT 10/04/2024 6:00 AM AVIATION SUPPORT EQUIPMENT REPAIRER CBC W/DIFF AUTOMATED STAT 10/04/2024 6:00 AM AVIATION SUPPORT EQUIPMENT REPAIRER RESPIRATORY PCR PANEL 2 STAT 10/04/2024 1:12 AM AVIATION SUPPORT EQUIPMENT REPAIRER HC MYCOPLASMA AB-90 Routine 10/04/2024 1 2:31 AM AVIATION SUPPORT EQUIPMENT REPAIRER CULTURE, BACTERIA, BLOOD STAT 10/03/2024 11:10 PM AVIATION SUPPORT EQUIPMENT REPAIRER ECG 12-LEAD STAT 10/03/2024 4:49 PM AVIATION SUPPORT EQUIPMENT REPAIRER CULTURE RESPIRATORY W/ GRAM STAIN STAT 10/03/2024 4:27 PM AVIATION SUPPORT EQUIPMENT REPAIRER INFLUENZA A & B STAT 10/03/2024 4:27 PM AVIATION SUPPORT EQUIPMENT REPAIRER CORONAVIRUS (COVID 19) STAT 4:27 PM AVIATION SUPPORT EQUIPMENT REPAIRER LEGIONELLA AG URINE STAT 10/03/2024 4 :15 PM AVIATION SUPPORT EQUIPMENT REPAIRER HC INFECT AGENT DETECT OPTICAL STAT 10/03/2024 4:15 PM AVIATION SUPPORT EQUIPMENT REPAIRER TSH W/REFLEX Routine 10/03/2024 4:15 PM AVIATION SUPPORT EQUIPMENT REPAIRER PHOSPHORUS, INORGANIC PHOSPHATE Routine 10/03/2024 4:15 PM AVIATION SUPPORT EQUIPMENT REPAIRER MAGNESIUM Routine 10/03/2024 4:15 PM AVIATION SUPPORT EQUIPMENT REPAIRER PROCALCITONIN (PCT) STAT 10/03/2024 4 :15 PM AVIATION SUPPORT EQUIPMENT REPAIRER URINALYSIS, AUTO, COMPLETE STAT 10/03/2024 4:15 PM AVIATION SUPPORT EQUIPMENT REPAIRER COMPREHENSIVE METABOLIC PANEL STAT 10/03/2024 4:15 PM AVIATION SUPPORT EQUIPMENT REPAIRER CBC W/DIFF AUTOMATED STAT 10/03/2024 4:15 PM AVIATION SUPPORT EQUIPMENT REPAIRER PRO-BRAIN NATRIURETIC PEPTIDE STAT 10/03/2024 4:15 PM AVIATION SUPPORT EQUIPMENT REPAIRER TROPONIN, QUANT STAT 10/03/2024 4:15 PM AVIATION SUPPORT EQUIPMENT REPAIRER BLOOD GAS, ARTERIAL LAB STAT 10/03/2024 4:05 PM AVIATION SUPPORT EQUIPMENT REPAIRER XR CHEST PA+LAT STAT 10/03/2024 3:05 PM AVIATION SUPPORT EQUIPMENT REPAIRER HOME SLEEP STUDY - WATCHPAT Routine 09/22/2024 3:00 PM AVIATION SUPPORT EQUIPMENT REPAIRER Snoring from Last 3 Months Results * (ABNORMAL) BASIC METABOLIC PANEL (10/08/2024 5:46 AM AVIATION SUPPORT EQUIPMENT REPAIRER) Only the most recent of4 resultswithin the time period is included. GLUCOSE 84 70 - 99 MG/DL 10/08/2024 9:39 AM AVIATION SUPPORT EQUIPMENT REPAIRER [facility] BUN 19(H) 7 - 18 MG/DL 10/08/2024 9:39 AM AVIATION SUPPORT EQUIPMENT REPAIRER [facility] CREATININE S/P/B 0.58 0.55 - 1.02 MG/DL 10/08/2024 9:39 AM AVIATION SUPPORT EQUIPMENT REPAIRER [facility] SODIUM S/P/B 134(L) 136 - 145 MMOL/L 10/08/2024 9:39 AM AVIATION SUPPORT EQUIPMENT REPAIRER [facility] POTASSIUM S/P/B 4.0 3.5 - 5.1 MMOL/L 10/08/2024 9:39 AM AVIATION SUPPORT EQUIPMENT REPAIRER [facility] CHLORIDE S/P/B 102 97 - 115 MMOL/L 10/08/2024 9:39 AM AVIATION SUPPORT EQUIPMENT REPAIRER [facility] CO2 29.0 21 - 32 MMOL/L 10/08/2024 9:39 AM AVIATION SUPPORT EQUIPMENT REPAIRER [facility] CALCIUM S/P/B 8.6 8.5 - 10.1 MG/DL 10/08/2024 9:39 AM [facility] ANION GAP 3.0 2 - 10 MMOL/L 10/08/2024 9:39 AM [facility] BUN CREATININE RATIO 32.9(H) 6 - 26 10/08/2024 9:39 AM [facility] GFR ESTIMATE 90(L) >90 ML/MIN/1.7 3 M2 10/08/2024 9:39 AM [facility] Comment: NOTE: eGFR is not calculated for patients <18 years of age or gender unknown. This is an estimated GFR calculation using the new CKD EPI creatinine equation without race and so does not require a correction factor for race. This estimated GFR should not be used for calculating drug doses. 10/08/2024 5:46 AM AVIATION SUPPORT EQUIPMENT REPAIRER Wolf Turner MD LABORATORY Final R esult [facility] [address] [place] [address], [place] [phone] * (ABNORMAL) CBC W/DIFF AUTOMATED (10/08/2024 5:46 AM AVIATION SUPPORT EQUIPMENT REPAIRER) Only the most recent of6 resultswithin the time period is included. WBC 4.27(L) 4.5 - 11.0 x10'3/uL 10/08/2024 6:40 AM [facility] RBC 4.40 4.20 - 5.40 x10'6/uL 10/08/2024 6:40 AM [facility] HGB 12.5 12.0 - 16.0 G/DL 10/08/2024 6:40 AM [facility] HCT 39.2 38.0 - 48.0 % 10/08/2024 6:40 AM [facility] MCV 89.1 81.0 - 99.0 FL 10/08/2024 6:40 AM [facility] MCH 28.4 27.0 - 31.0 PG 10/08/2024 6:40 AM [facility] MCHC 31.9(L) 32.0 - 36.0 G/DL 10/08/2024 6:40 AM [facility] RDW 13.0 11.5 - 14.5 % 10/08/2024 6:40 AM [facility] PLT 180 130 - 400 x10'3/uL 10/08/2024 6:40 AM [facility] MPV 10.2 9.3 - 12.2 FL 10/08/2024 6:40 AM [facility] DIFFERENTIAL TYPE AUTOMATED DIFFERENTIAL 10/08/2024 6:40 AM [facility] NEUTROPHILS % 57.7 % 10/08/2024 6:40 AM [facility] LYMPHOCYTES % 28.8 % 10/08/2024 6:40 AM [facility] MONOCYTES % 13.1 % 10/08/2024 6:40 AM [facility] EOSINOPHILS 0.0 % 10/08/2024 6:40 AM [facility] BASOPHILS 0.2 % 10/08/2024 6:40 AM [facility] IMMATURE GRANS % 0.2 % 10/08/19 6:40 AM [facility] ABS. NEUTROPHILS 2.46 1.80 - 7.70 x10'3/uL 10/08/2024 6:40 AM [facility] ABS. LYMPHOCYTES 1.23 1.00 - 4.80 x10'3/uL 10/08/2024 6:40 AM AVIATION SUPPORT EQUIPMENT REPAIRER [facility] ABS. MONOCYTES 0.56 0.24 - 0.86 x10'3/uL 10/08/2024 6:40 AM AVIATION SUPPORT EQUIPMENT REPAIRER [facility] ABS. EOSINOPHILS 0.00(L) 0.04 - 0.36 x10'3/uL 10/08/2024 6:40 AM AVIATION SUPPORT EQUIPMENT REPAIRER [facility] ABS. BASOPHILS 0.01 0.01 - 0.08 x10'3/uL 10/08/2024 6:40 AM AVIATION SUPPORT EQUIPMENT REPAIRER [facility] ABS. IMMATURE GRANULOCYTES 0.01 0.00 - 0.49 x10'3/uL 10/08/2024 6:40 AM AVIATION SUPPORT EQUIPMENT REPAIRER [facility] 10/08/2024 5:46 AM AVIATION SUPPORT EQUIPMENT REPAIRER Wolf Turner MD LABORATORY Final R esult [facility] [address] [place] [id number], * CULTURE, TB/AFB W/ STAIN (10/04/2024 1:32 PM AVIATION SUPPORT EQUIPMENT REPAIRER) SPECIMEN SOURCE SPUTUM, EXPECTORATED 10/04/2024 5:04 PM AVIATION SUPPORT EQUIPMENT REPAIRER [facility] RESULT REPORT 10/07/2024 4:58 PM AVIATION SUPPORT EQUIPMENT REPAIRER [facility] EMMIE HUTSON Comment: Mycobacteria, Culture, with Fluorochrome Smear Mycobacteria Stn,AF,Fluor SOURCE : SPUTUM, EXPECTOR Result/Comment: No acid-fast bacilli seen. Mycobacteria smear result should be used as an adjunct to culture in diagnosing mycobacterial disease (e.g. tuberculosis). If intended, please ensure an order for Mycobacteria (Bdbf-Tpph-[id number]) culture has also been submitted. Acid Fast Culture SOURCE : SPUTUM, EXPECTOR Result/Comment: No Mycobacterium species isolated after 6 weeks incubation. Test Performed by oJse D Gastelum [facility], [address] [place] [address] [place] Cj Dallas M.D., Ph.D., Director of Laboratories , [facility] [id number] REPORT STATUS FINAL 11/19/2024 9:06 AM AVIATION SUPPORT EQUIPMENT REPAIRER [facility] EMMIE HUTSON SPUTUM / Unknown 10/04/2024 1:32 PM AVIATION SUPPORT EQUIPMENT REPAIRER Robin Garcia DO MICROBIOLOGY - GENERAL ORD ERABLES Final Result [facility] [address] [place] [address], [place] [phone] [facility] [address] [place] [address], [place] [phone] * (ABNORMAL) CULTURE RESPIRATORY W/ GRAM STAIN (10/04/2024 1:32 PM AVIATION SUPPORT EQUIPMENT REPAIRER) Only the most recent of2 resultswithin the time period is included. SPEC DESCRIPTION SPUTUM, EXPECTORATED 10/04/2024 1:32 PM AVIATION SUPPORT EQUIPMENT REPAIRER [facility] SPECIAL REQUESTS NO SPECIAL REQUEST 10/04/2024 1:32 PM AVIATION SUPPORT EQUIPMENT REPAIRER [facility] GRAM STAIN RESULT MODERATE WHITE BLOOD CELLS SEEN 10/05/2024 10:17 AM AVIATION SUPPORT EQUIPMENT REPAIRER [facility] GRAM STAIN RESULT FEW MIXED BACTERIAL NIKOLE 10/05/2024 10:17 AM [facility] CULTURE RESULT SPARSE GROWTH OF PSEUDOMONAS AERUGINOSA SUSCEPTIBILITY ON PREVIOUS SPECIMEN [id number] NOTE: ORGANISM MAY DEVELOP RESISTANCE AFTER 3 TO 4 DAYS OF THERAPY WITH THIRD GENERATION CEPHALOSPORINS. TESTING OF REPEAT ISOLATES MAY BE WARRANTED. (A) 10/06/2024 8:37 AM AVIATION SUPPORT EQUIPMENT REPAIRER [facility] CULTURE RESULT LIGHT GROWTH OF NORMAL NIKOLE PRESENT 10/06/2024 8:37 AM AVIATION SUPPORT EQUIPMENT REPAIRER [facility] SPUTUM SPECIMEN / Unknown 10/04/2024 1:32 PM AVIATION SUPPORT EQUIPMENT REPAIRER 10/04/2024 1:46 PM AVIATION SUPPORT EQUIPMENT REPAIRER us Robin Garcia DO MICROBIOLOGY - GENERAL ORD ERABLES Final Result [facility] [address] [place] [address], [place] [phone] * (ABNORMAL) COMPREHENSIVE METABOLIC PANEL (10/04/2024 6:00 AM AVIATION SUPPORT EQUIPMENT REPAIRER) Only the most recent of2 resultswithin the time period is included. Pathologist [facility] GLUCOSE 119(H) 70 - 99 MG/DL 10/04/2024 6:37 AM [facility] BUN 17 7 - 18 MG/DL 10/04/2024 6:37 AM [facility] CREATININE S/P/B 0.72 0.55 - 1.02 MG/DL 10/04/2024 6:37 AM [facility] SODIUM S/P/B 133(L) 136 - 145 MMOL/L 10/04/2024 6:37 AM [facility] POTASSIUM S/P/B 4.0 3.5 - 5.1 MMOL/L 10/04/2024 6:37 AM [facility] CHLORIDE S/P/B 102 97 - 115 MMOL/L 10/04/2024 6:37 AM [facility] CO2 25.8 21 - 32 MMOL/L 10/04/2024 6:37 AM [facility] CALCIUM S/P/B 8.7 8.5 - 10.1 MG/DL 10/04/2024 6:37 AM [facility] BILIRUBIN TOTAL S/P/B 0.3 0.2 - 1.2 MG/DL 10/04/2024 6:37 AM [facility] Comment: THIS ASSAY IS NOT RECOMMENDED FOR PATIENTS UNDERGOING TREATMENT WITH ELTROMBOPAG DUE TO THE POTENTIAL FOR FALSELY ELEVATED RESULTS. TOTAL PROTEIN S/P/B 6.5 6.4 - 8.2 G/DL 10/04/2024 6:37 AM [facility] ALBUMIN S/P/B 3.1(L) 3.4 - 5.0 G/DL 10/04/2024 6:37 AM [facility] AST 13(L) 15 - 37 U/L 10/04/2024 6:37 AM [facility] ALT 19 14 - 55 U/L 10/04/2024 6:37 AM [facility] ALKALINE PHOSPHATASE S/P/B 49(L) 50 - 136 U/L 10/04/2024 6:37 AM [facility] ANION GAP 5.2 2 - 10 MMOL/L 10/04/2024 6:37 AM [facility] BUN CREATININE RATIO 23.7 6 - 26 10/04/2024 6:37 AM [facility] A/G RATIO 0.9(L) 1.0 - 2.0 RATIO 10/04/2024 6:37 AM [facility] GFR ESTIMATE 83(L) >90 ML/MIN/1.7 3 M2 10/04/2024 6:37 AM [facility] Comment: NOTE: eGFR is not calculated for patients <18 years of age or gender unknown. This is an estimated GFR calculation using the new CKD EPI creatinine equation without race and so does not require a correction factor for race. This estimated GFR should not be used for calculating drug doses. 10/04/2024 6:00 AM AVIATION SUPPORT EQUIPMENT REPAIRER us Lilibeth Manzano COMMUNITY PLACEMENT WORKER LABORATORY Final Resul t [facility] [address] [place] [address], [place] [phone] * (ABNORMAL) RESPIRATORY PCR PANEL 2 (10/04/2024 1:12 AM AVIATION SUPPORT EQUIPMENT REPAIRER) Pathologist [facility] ADENOVIRUS PCR (RESP) NOT DETECTED NOT DETECTED 10/04/2024 3:19 AM [facility] CORONAVIRUS 229E PCR (RESP) NOT DETECTED NOT DETECTED 10/04/2024 3:19 AM [facility] CORONAVIRUS HKU1 PCR (RESP) NOT DETECTED NOT DETECTED 10/04/2024 3:19 AM [facility] CORONAVIRUS NL63 PCR (RESP) NOT DETECTED NOT DETECTED 10/04/2024 3:19 AM [facility] CORONAVIRUS OC43 PCR (RESP) NOT DETECTED NOT DETECTED 10/04/2024 3:19 AM [facility] METAPNEUMOVIRUS PCR (RESP) NOT DETECTED NOT DETECTED 10/04/2024 3:19 AM [facility] RHINOVIRUS/ENTEROV IRUS PCR (RESP) NOT DETECTED NOT DETECTED 10/04/2024 3:19 AM [facility] INFLUENZA A/H1-2009 PCR (RESP) DETECTED(A) NOT DETECTED 10/04/2024 3:19 AM [facility] INFLUENZA B PCR (RESP) NOT DETECTED NOT DETECTED 10/04/2024 3:19 AM [facility] PARAINFLUENZA 1 PCR (RESP) NOT DETECTED NOT DETECTED 10/04/2024 3:19 AM [facility] PARAINFLUENZA 2 PCR (RESP) NOT DETECTED NOT DETECTED 10/04/2024 3:19 AM [facility] PARAINFLUENZA 3 PCR (RESP) NOT DETECTED NOT DETECTED 10/04/2024 3:19 AM [facility] PARAINFLUENZA 4 PCR (RESP) NOT DETECTED NOT DETECTED 10/04/2024 3:19 AM [facility] RSV PCR (RESP) NOT DETECTED NOT DETECTED 10/04/2024 3:19 AM AVIATION SUPPORT EQUIPMENT REPAIRER [facility] B PARAPERTUSIS PCR (RESP) NOT DETECTED NOT DETECTED 10/04/2024 3:19 AM AVIATION SUPPORT EQUIPMENT REPAIRER [facility] BORDETELLA PERTUSSIS PCR (RESP) NOT DETECTED NOT DETECTED 10/04/2024 3:19 AM AVIATION SUPPORT EQUIPMENT REPAIRER [facility] CHLAMYDOPHILA PNEUMONIAE PCR (RESP) NOT DETECTED NOT DETECTED 10/04/2024 3:19 AM AVIATION SUPPORT EQUIPMENT REPAIRER [facility] MYCOPLASMA PNEUMONIAE PCR (RESP) NOT DETECTED NOT DETECTED 10/04/2024 3:19 AM AVIATION SUPPORT EQUIPMENT REPAIRER [facility] CORONAVIRUS SARS COV 2 PCR (RESP) NOT DETECTED NOT DETECTED 10/04/2024 3:19 AM AVIATION SUPPORT EQUIPMENT REPAIRER [facility] NASOPHARYNGEAL SWAB / Unknown 10/04/2024 1:12 AM AVIATION SUPPORT EQUIPMENT REPAIRER Lilibeth Manzano COMMUNITY PLACEMENT WORKER MICROBIOLOGY - GENERAL JAI SKELTON Final Result [facility] [address] [place] [id number], * (ABNORMAL) MYCOPLASMA PNEUMONIAE AB (10/04/2024 12:31 AM AVIATION SUPPORT EQUIPMENT REPAIRER) M. PNEUMONIAE AB IGG 1.65(H) <=0.90 10/08/2024 5:20 PM AVIATION SUPPORT EQUIPMENT REPAIRER [facility] [place] Comment: Reference Range: <=0.90 Negative 0.91-1.09 Equivocal >=1.10 Positive A positive IgG result indicates that the patient has antibody to Mycoplasma. It does not differentiate between an active or past infection. The clinical diagnosis must be interpreted in conjunction with the clinical signs and symptoms of the patient. M. PNEUMONIAE AB IGM 25 <770 U/mL 10/08/2024 5:20 PM AVIATION SUPPORT EQUIPMENT REPAIRER [facility] [place] Comment: Reference Range: <770 [...] symptoms of the patient. Test Performed by [facility], [place] [employer], [address] [place] [address] Cj Dallas M.D., Ph.D., Director of Laboratories , [place] [id number] 10/04/2024 12:3 1 AM AVIATION SUPPORT EQUIPMENT REPAIRER Lilibeth Manzano APRN LABORATORY Final Resul t Performing Organization Address City/[facility]/ZIP Co de Phone Number [facility] [address] , [place] [phone] * CULTURE BACTERIA, BLOOD (10/03/2024 11:10 PM AVIATION SUPPORT EQUIPMENT REPAIRER) SPEC DESCRIPTION BLOOD 10/03/2024 4:16 PM AVIATION SUPPORT EQUIPMENT REPAIRER [facility] SPECIAL REQUESTS NO SPECIAL REQUEST 10/03/2024 4:16 PM AVIATION SUPPORT EQUIPMENT REPAIRER [facility] CULTURE RESULT NO GROWTH 5 DAYS 10/08/2024 10:45 AM AVIATION SUPPORT EQUIPMENT REPAIRER [facility] BLOOD SPECIMEN OBTAINED FOR BLOOD CULTURE / Unknown 10/03/2024 11:10 PM AVIATION SUPPORT EQUIPMENT REPAIRER 10/03/2024 11:15 PM AVIATION SUPPORT EQUIPMENT REPAIRER Sarthak Hendrickson MD MICROBIOLOGY - GENERAL ORDERABL ES Final Result [facility] [address] [place] [address], [place] [phone] * ECG 12 lead (10/03/2024 4:49 PM AVIATION SUPPORT EQUIPMENT REPAIRER) 10/03/2024 4:49 PM AVIATION SUPPORT EQUIPMENT REPAIRER Narrative 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: PARRISH : 1940 Requested By: BRANDI ACEVES Order Number: [id number] Reading MD: Danny Bee Measurements Intervals [place] Rate: 114 P: 95 CO: 169 QRS: 40 QRSD: 119 T: 138 QT: 322 QTc: 445 Interpretive Statements SINUS TACHYCARDIA WITH FREQUENT VENTRICULAR PREMATURE COMPLEXES Baseline artifact limits interpretation TION SUPPORT EQUIPMENT REPAIRER Procedure Note Danny Bee MD - 10/04/2024 [place] Test Date: 2024-10-03 Pat Name: HERIBERTO MITCHELLTON Department: 41 Room: EXAM10 Gender: Female 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: CC : 1940 Requested By: BRANDI ACEVES Order Number: [id number] Reading MD: Danny Bee Measurements Intervals [place] Rate: 114 P: 95 CO: 169 QRS: 40 QRSD: 119 T: 138 QT: 322 QTc: 445 Interpretive Statements SINUS TACHYCARDIA WITH FREQUENT VENTRICULAR PREMATURE COMPLEXES Baseline artifact limits interpretation TION SUPPORT EQUIPMENT REPAIRER us Brandi CANELA ECG ORDERABLES Final Resu lt [facility] ([facility]) RAD * CORONAVIRUS (COVID 19) (10/03/2024 4:27 PM AVIATION SUPPORT EQUIPMENT REPAIRER) CORONAVIRUS SARS COV 2 RNA NEGATIVE NEGATIVE 10/03/2024 5:30 PM AVIATION SUPPORT EQUIPMENT REPAIRER [facility] Comment: NEGATIVE RESULTS DO NOT [...] SARS-COV-2. SPECIMEN TYPE NASAL 10/03/2024 4:32 PM AVIATION SUPPORT EQUIPMENT REPAIRER [facility] NASAL STRUCTURE / Unknown 10/03/2024 4:27 PM AVIATION SUPPORT EQUIPMENT REPAIRER us Sarthak Hendrickson MD MICROBIOLOGY - GENERAL ORDERABL ES Final Result [facility] [address] [place] [address], * INFLUENZA A & B (10/03/2024 4:27 PM AVIATION SUPPORT EQUIPMENT REPAIRER) SPECIMEN TYPE NASAL 10/03/2024 4:58 PM AVIATION SUPPORT EQUIPMENT REPAIRER [facility] INFLUENZA A NEGATIVE NEGATIVE 10/03/2024 5:30 PM AVIATION SUPPORT EQUIPMENT REPAIRER [facility] INFLUENZA B NEGATIVE NEGATIVE 10/03/2024 5:30 PM AVIATION SUPPORT EQUIPMENT REPAIRER [facility] Comment: Interpretation: Negative for Influenza [...] NASOPHARYNGEAL SWAB / Unknown 10/03/2024 4:27 PM AVIATION SUPPORT EQUIPMENT REPAIRER Sarthak Hendrickson MD MICROBIOLOGY - GENERAL ORDERABL ES Final Result Performing Organization Address [facility] Co de Phone Number [facility] [address] [place] [address], * PROCALCITONIN (PCT) (10/03/2024 4:15 PM AVIATION SUPPORT EQUIPMENT REPAIRER) Procalcitonin <0.05 0.00 - 0.49 NG/ML 10/03/2024 5:53 PM AVIATION SUPPORT EQUIPMENT REPAIRER [facility] 10/03/2024 4:15 PM AVIATION SUPPORT EQUIPMENT REPAIRER Brandi Aceves PA LABORATORY Final Resu lt Performing Organization Address [facility] Co de Phone Number [facility] [address] [place] [address], * TSH W/REFLEX (10/03/2024 4:15 PM AVIATION SUPPORT EQUIPMENT REPAIRER) TSH 0.922 0.358 - 3.74 uIU/ML 10/04/2024 1:37 AM AVIATION SUPPORT EQUIPMENT REPAIRER [facility] Comment: HIGH DOSES OF BIOTIN MAY INTERFERE WITH THIS TEST RESULT. CORRELATION TO CLINICAL HISTORY AND PRESENTATION RECOMMENDED. FREE T4 NOT INDICATED 10/03/2024 4:15 PM AVIATION SUPPORT EQUIPMENT REPAIRER Lilibeth Manzano APRN LABORATORY Final Resul t Performing Organization Address [facility] Co de Phone Number [facility] [address] [place] [address], * (ABNORMAL) PRO-BRAIN NATRIURETIC PEPTIDE (10/03/2024 4:15 PM AVIATION SUPPORT EQUIPMENT REPAIRER) PRO-B TYPE NATRIURETIC PEPTIDE 1,925(H) <450 PG/ML 10/03/2024 5:26 PM AVIATION SUPPORT EQUIPMENT REPAIRER [facility] Comment: CUT POINTS ESTABLISHED BY [...] 72% FOR ACUTE CHF. 10/03/2024 4:15 PM AVIATION SUPPORT EQUIPMENT REPAIRER Brandi Aceves PA LABORATORY Final Resu lt [facility] [address] [place] [address], [place] [phone] * STREP PNEUMO AG URINE (10/03/2024 4:15 PM AVIATION SUPPORT EQUIPMENT REPAIRER) S. PNEUMONIAE URINARY AG NEGATIVE NEGATIVE 10/04/2024 12:04 PM AVIATION SUPPORT EQUIPMENT REPAIRER [facility] URINE SPECIMEN OBTAINED BY CLEAN CATCH PROCEDURE / Unknown 10/03/2024 4:15 PM AVIATION SUPPORT EQUIPMENT REPAIRER Lliibeth Manzano APRN MICROBIOLOGY - GENERAL ORDE NAFISA Final Result [facility] [address] [place] [address], [place] [phone] * LEGIONELLA AG URINE (10/03/2024 4:15 PM AVIATION SUPPORT EQUIPMENT REPAIRER) LEGIONELLA ANTIGEN (URINE) NEGATIVE NEGATIVE 10/04/2024 12:04 PM AVIATION SUPPORT EQUIPMENT REPAIRER [facility] URINE SPECIMEN / Unknown 10/03/2024 4:15 PM AVIATION SUPPORT EQUIPMENT REPAIRER Lilibeth Abril Jose Juan BRIGHT MICROBIOLOGY - GENERAL ORDMario SKELTON Final Result [facility] [address] [place] [address], [place] [phone] * URINALYSIS, AUTO, COMPLETE (10/03/2024 4:15 PM AVIATION SUPPORT EQUIPMENT REPAIRER) SPECIMEN TYPE URINE CLEAN CATCH 10/03/2024 4:19 PM AVIATION SUPPORT EQUIPMENT REPAIRER [facility] COLOR (U) LIGHT YELLOW 10/03/2024 5:13 PM AVIATION SUPPORT EQUIPMENT REPAIRER [facility] TRANSPARENCY CLEAR 10/03/2024 5:13 PM [facility] SPECIFIC GRAVITY (U) 1.009 1.001 - 1.030 10/03/2024 5:13 PM [facility] U PH 6.5 5.0 - 9.0 10/03/2024 5:13 PM [facility] LEUKOCYTES (U) NEGATIVE NEGATIVE 10/03/2024 5:13 PM [facility] NITRITES NEGATIVE NEGATIVE 10/03/2024 5:13 PM [facility] PROTEIN RANDOM (U) NEGATIVE <30 MG/DL 10/03/2024 5:13 PM [facility] GLUCOSE (U) NORMAL NORMAL MG/DL 10/03/2024 5:13 PM [facility] KETONES MG/DL (U) NEGATIVE NEGATIVE MG/DL 10/03/2024 5:13 PM [facility] UROBILINOGEN NORMAL NORMAL MG/DL 10/03/2024 5:13 PM [facility] BILIRUBIN (U) NEGATIVE NEGATIVE MG/DL 10/03/2024 5:13 PM AVIATION SUPPORT EQUIPMENT REPAIRER [facility] BLOOD (U) NEGATIVE NEGATIVE 10/03/2024 5:13 PM AVIATION SUPPORT EQUIPMENT REPAIRER [facility] WBC/HPF 2 <6 /HPF 10/03/2024 5:13 PM AVIATION SUPPORT EQUIPMENT REPAIRER [facility] RBC/HPF 2 <6 /HPF 10/03/2024 5:13 PM AVIATION SUPPORT EQUIPMENT REPAIRER [facility] URINE SPECIMEN OBTAINED BY CLEAN CATCH PROCEDURE / Unknown 10/03/2024 4:15 PM AVIATION SUPPORT EQUIPMENT REPAIRER Brandi CANELA URINE ORDERABLES Final Res ult Performing Organization Address City/[facility]/ZIP Co de Phone Number [facility] [address] [place] [address], [place] [phone] * TROPONIN, QUANT (10/03/2024 4:15 PM AVIATION SUPPORT EQUIPMENT REPAIRER) Pathologist [facility] TROPONIN I HIGH SENSITIVITY 44 <54 ng/L 10/03/2024 5:26 PM AVIATION SUPPORT EQUIPMENT REPAIRER [facility] Comment: HIGH DOSES OF BIOTIN, TROPONIN-SPECIFIC AUTOANTIBODIES, AND ANTIBODY THERAPY CONTAINING HAMA MAY INTERFERE WITH THIS TEST RESULT. CORRELATION TO CLINICAL HISTORY AND PRESENTATION RECOMMENDED. 10/03/2024 4:15 PM AVIATION SUPPORT EQUIPMENT REPAIRER Brandi CANELA LABORATORY Final Resu lt Performing Organization Address City/[facility]/ZIP Co de Phone Number [facility] [address] [place] [address], [place] [phone] * PHOSPHORUS, INORGANIC PHOSPHATE (10/03/2024 4:15 PM AVIATION SUPPORT EQUIPMENT REPAIRER) PHOSPHORUS 3.4 2.5 - 4.9 MG/DL 10/04/2024 1:37 AM AVIATION SUPPORT EQUIPMENT REPAIRER [facility] 10/03/2024 4:15 PM AVIATION SUPPORT EQUIPMENT REPAIRER Lilibeth Samuels Jose Juan COMMUNITY PLACEMENT WORKER LABORATORY Final Resul t [facility] [address] [place] [address], [place] [phone] * MAGNESIUM (10/03/2024 4:15 PM AVIATION SUPPORT EQUIPMENT REPAIRER) MAGNESIUM 2.3 1.8 - 2.4 MG/DL 10/04/2024 1:37 AM AVIATION SUPPORT EQUIPMENT REPAIRER [facility] Comment:SLIGHT HEMOLYSIS, RE SULT MAY BE AFFECTED. 10/03/2024 4:15 PM AVIATION SUPPORT EQUIPMENT REPAIRER Liilbeth Samuels Jose Juan COMMUNITY PLACEMENT WORKER LABORATORY Final Resul t Performing Organization Address [facility] Co de Phone Number [facility] [address] [place] [address], [place] [phone] * (ABNORMAL) ARTERIAL BLOOD GAS (10/03/2024 4:05 PM AVIATION SUPPORT EQUIPMENT REPAIRER) PH ARTERIAL 7.49(H) 7.35 - 7.45 10/03/2024 4:15 PM AVIATION SUPPORT EQUIPMENT REPAIRER [facility] PCO2 33.0(L) 35.0 - 45.0 MMHG 10/03/2024 4:15 PM AVIATION SUPPORT EQUIPMENT REPAIRER [facility] PO2 90.0 83.0 - 108.0 MMHG 10/03/2024 4:15 PM [facility] TOTAL CO2 ARTERIAL 26.1(H) 19.0 - 24.0 MMOL/L 10/03/2024 4:15 PM [facility] BASE EXCESS 2.2 0.0 - 3.0 MMOL/L 10/03/2024 4:15 PM [facility] O2 SATURATION 98 94.0 - 98.0 % 10/03/2024 4:15 PM AVIATION SUPPORT EQUIPMENT REPAIRER [facility] BICARB ARTERIAL 25.1 21.0 - 28.0 MMOL/L 10/03/2024 4:15 PM AVIATION SUPPORT EQUIPMENT REPAIRER [facility] CHANDAN TEST CHANDAN TEST PERFORMED 10/03/2024 4:12 PM AVIATION SUPPORT EQUIPMENT REPAIRER [facility] O2 ADMIN ARTERIAL 28 10/03/2024 4:12 PM AVIATION SUPPORT EQUIPMENT REPAIRER [facility] DRAW SITE ARTERIAL RT RADIAL 10/03/2024 4:12 PM AVIATION SUPPORT EQUIPMENT REPAIRER [facility] 10/03/2024 4:05 PM AVIATION SUPPORT EQUIPMENT REPAIRER us Brandi CANELA LABORATORY Final Resu lt [facility] [address] [place] [address], [place] [phone] * XR CHEST PA+LAT (10/03/2024 3:05 PM AVIATION SUPPORT EQUIPMENT REPAIRER) Anatomical Region Laterality Modality Chest Radiographic Angie ging 10/03/2024 3:12 PM AVIATION SUPPORT EQUIPMENT REPAIRER Impressions 10/03/2024 3:17 PM AVIATION SUPPORT EQUIPMENT REPAIRER =====IMPRESSION:===== 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 Superimposed acute/active airway infection/inflammation is not excluded. Ordered By: BRANDI ACEVES Interpreted By: Sulema Pinto MD, 10/03/2024 3:12 PM Narrative 10/03/2024 3:17 PM AVIATION SUPPORT EQUIPMENT REPAIRER [facility] [address] [place], [place] [address] Examination: Chest x-ray 2 view Exam date/time: [...] Procedure Note Sulema Pinto MD - 10/03/[address] [address] Examination: Chest x-ray 2 view Exam date/time: [...] lt * Home Sleep Study - WatchPat (11421/[id number]) (09/22/2024 3:00 PM AVIATION SUPPORT EQUIPMENT REPAIRER) Narrative [facility] - 09/22/2024 3:00 PM AVIATION SUPPORT EQUIPMENT REPAIRER Diego Freeman MD 09/30/2024 10:28 AM Patient Information First Name: HERIBERTO Last Name: ILEANA ID: [id number] Date: 1940 Age: 84 Gender: Female BMI: [...] (Events per Minute): 4.8 Rev. Printed on:09/30/2024 09/22/2024,[id number],1940,Female *The automatic analysis events or stages have been edited. 539 Page 1 of 2 Sleep Study Report SUMMARY/DIAGNOSIS 1.) Mild Obstructive Sleep Apnea. 2.) Premature beats were noted and minimal atrial fibrillation was suspected during this study. RECOMMENDATIONS [place] treatment option should be discussed with the [...] snoring and other sleep-related issues, such as READINESS PARAPROFESSIONAL depressants, especially at bedtime. Raw data reviewed and electronically signed by: Diego Freeman on 09/30/2024 10:26:04 AM at 4:26:10PM, [facility] us Naeem Grissom MD SLEEP CENTER ORDERABLES Fin al Result [facility] [address] [place] [address], from Last 3 Months Insurance [employer] MEDICARE Advance Directives * Full Code (Latest Code Status on File) Date Activated Date Inactivated Comments 10/09/2024 3:14 PM * Full Code Date Activated Date Inactivated Comments 10/04/2024 12:11 AM 10/08/2024 6:04 PM Care Teams Yard Spotter Relationship Specialty Start Date End Date Pawan Echevarria MD [facility] [address] [address] PCP - General FAMILY PRACTICE 04/17/23
--- OUTSIDE RECORDS SUMMARY | 2024-11-20 09:32 | XMS_ITS | Encounter Summary ---
Author Organization [facility] - [facility] Address [facility] [place] [address] Care Team Providers Care Wet Milling Wheel Operator Name Role Phone Edilberto Crisostomo MD Primary Care Provider [phone] Gavin Gross MD Primary Care Provider Pawan Echevarria MD Primary Care Provider [phone] Encounter Details Date Type Department Care Team (Late st Contact Info) Description 03/22/2021 MyChart Message Enc [facility] Medical Group Multispecialty Care - [address], [address] [place] [id number] Abdon Flynn MD [address] [place] [address] [address] [place] [address] Referral Request Social History Tobacco Use Types [...] Sex Assigned at Female 10/03/2024 2:27 PM DUPLICATOR PUNCH OPERATOR Legal Sex Female 4:16 PM CDT Gender Identity Not on file Sexual Orientation Not on file documented as of this encounter Plan of Treatment Upcoming Encounters Date Type Department Care Team (Late st Contact Info) Description 01/14/2025 11:40 AM CDT Office Visit [facility] Medical Group Multispecialty Care - [facility] [address] [facility] [address] [place] [address] Abdon Flynn MD [facility] [facility] [address] [place] [address] documented as of this encounter Visit Diagnoses Not on filedocumented in this encounter Additional Health Concerns Infection Onset Date Last Indicated Resolved Time COVID-19 Rule Out 10/03/2024 10/03/2024 10/03/2024 5:30 PM DUPLICATOR PUNCH OPERATOR COVID-19 Rule Out 10/04/2024 10/04/2024 10/04/2024 3:19 AM DUPLICATOR PUNCH OPERATOR Influenza - Seasonal 10/04/2024 10/04/2024 025 12:32 AM DUPLICATOR PUNCH OPERATOR documented as of this encounter Care Teams Wet Milling Wheel Operator Relationship Specialty Start Date End Date Edilberto Crisostomo MD [address] [place] [address] PCP - General FAMILY PRACTICE 12/10/17 07/12/22 Gavin Gross MD [address] [facility] [address] [place] [address] PCP - General FAMILY PRACTICE 07/13/22 04/16/23 [place] [address] [place] [address] [address] [place] [address] PCP - General FAMILY PRACTICE 04/17/23 documented as of this encounter
--- OUTSIDE RECORDS SUMMARY | 2024-11-20 09:32 | XMS_ITS | Encounter Summary ---
Author Organization [facility] - [facility] Address Formerly [facility] [place] [address] Care Team Providers Care Mental Health Worker Name Role Phone Pawan Echevarria MD Primary Care Provider [phone] Encounter Details Date Type Department Care Team (Late st Contact Info) Description 11/18/2024 MyChart Message Enc [facility] Medical Group Multispecialty Care - [facility] [address] [facility] [place] [phone] Abdon Flynn MD [address] [place], [place] [address] [address] [place] [address] Move Up Appointment Social History Tobacco Use Types Packs/Day Years [...] the past 12 months has th e electric, gas, oil, or water company [...] and Family Not on file 10/04/2024 Attends [employer] Not on file 10/04 Active Member [...] Recorded Patient Health Questionnaire-2 Score 2 12/05/2022 [facility] [place] of Occupat ional Health - Occupational Stress [...] any time in the past 12 m [facility], were you homeless or living in a half-way (including now)? 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 2:27 PM TRANSMITTER ENGINEER Legal Sex Female 4:16 PM CDT Gender Identity Not on file Sexual Orientation Not on file documented as of this encounter Functional Status * Are you deaf or do you have serious difficulty hearing Answer Date of Assessment Author Status No 10/04/2024 5:00 PM Nighat Caputo RN Active * Are you blind or do you have serious difficulty seeing, even when wearing glasses? Answer Date of Assessment Author Status No 10/04/2024 5:00 PM Nighat Caputo RN Active * Do you have serious difficulty walking or climbing stairs? Answer Date of Assessment Author Status Yes 10/04/2024 5:00 PM Nighat Caputo RN Active * Do you have difficulty dressing or bathing? Answer Date of Assessment Author Status No 10/04/2024 5:00 PM Nighat Caputo RN Active * Because of a physical, mental, or emotional condition, do you have difficulty doing errands alone such as visiting a doctor's office or shopping? Answer Date of Assessment Author Status No 10/04/2024 5:00 PM Nighat Caputo RN Active documented as of this encounter Mental Status * Because of a physical, mental, or emotional condition, do you have serious difficulty concentrating, remembering, or making decisions? Answer Entry Date Author Status No 10/04/2024 5:00 PM Nighat Caputo RN Active documented in this encounter Plan of Treatment Upcoming Encounters Date Type Department Care Team (Late st Contact Info) Description 01/14/2025 11:40 AM CDT Office Visit [facility] Medical Group Multispecialty Care - [facility] [address] [facility] [place] [address] Abdon Flynn MD [address] [facility] [address] [place] [address] documented as of this encounter Visit Diagnoses Not on filedocumented in this encounter Additional Health Concerns Assessment Noted Time PHQ-9 Depression Total Score: 0 12/13/19 22 11:54 AM CDT documented as of this encounter Care Teams Mental Health Worker Relationship Specialty Start Date End Date Pawan Echevarria MD [address] [facility] [address] [place] [address] PCP - General FAMILY PRACTICE 04/17/23 documented as of this encounter
--- OUTSIDE RECORDS SUMMARY | 2024-11-20 09:32 | XMS_ITS | Encounter Summary ---
Author Organization [facility] Address [address] [place] [address] Phone Care Team Providers Care Accounts Payable Manager Name Role Phone Geeta Crisostomo MD Primary Care Provider [phone] Gavin Gross MD Primary Care Provider [phone] Pawan Echevarria MD Primary Care Provider [phone] Encounter Details Date Type Department Care Team [...] on file Legal Sex Female 3:43 AM TRACTOR TRAILER DRIVER Gender Identity Female 02/01/2022 8:55 AM CDT [...] on filedocumented in this encounter Care Teams Accounts Payable Manager Relationship Specialty Start Date End Date Geeta Crisostomo MD [address] [place] [address] PCP - General Family Medicine 03/08/18 03/28/22 Gavin Gross MD [address] [place] [address] PCP - General Family Medicine 03/29/22 06/05/23 Pawan Echevarria MD [address] [place] [address] [place] [address] PCP - General Family Medicine 06/06/23 documented as of this encounter
--- OUTSIDE RECORDS SUMMARY | 2024-11-20 09:32 | XMS_ITS | Encounter Summary ---
Author Organization [facility] Address [facility] [place] [address] Care Team Providers Care Rough Rib Grader Name Role Phone Edilberto Crisostomo MD Primary Care Provider [phone] Gavin Gross MD Primary Care Provider [phone] Pawan Echevarria MD Primary Care Provider [phone] Encounter Details Date Type Department Care Team (Late st Contact Info) Description 12/03/[address] [facility] Medical Group Multispecialty Care - [address], [address] [place] [phone] [place], [facility] Provider Provider Social History Tobacco Use Types [...] Sex Assigned at Female 10/03/2024 2:27 PM RADIATION PHYSICIST Legal Sex Female 4:16 PM CDT Gender Identity Not on file Sexual Orientation Not on file documented as of this encounter Plan of Treatment Upcoming Encounters Date Type Department Care Team (Late st Contact Info) Description 01/14/2025 11:40 AM CDT Office Visit [facility] Medical Group Multispecialty Care - [facility] [address] [facility] [address] [place] [address] Abdon Flynn MD [facility] [facility] [address] [place] [address] documented as of this encounter Visit Diagnoses Not on filedocumented in this encounter Additional Health Concerns Infection Onset Date Last Indicated Resolved Time COVID-19 Rule Out 10/03/2024 10/03/2024 10/03/2024 5:30 PM RADIATION PHYSICIST COVID-19 Rule Out 10/04/2024 10/04/2024 10/04/2024 3:19 AM RADIATION PHYSICIST Influenza - Seasonal 10/04/2024 10/04/2024 025 12:32 AM RADIATION PHYSICIST documented as of this encounter Care Teams Rough Rib Grader Relationship Specialty Start Date End Date Edilberto Crisostomo MD [address] [place] [address] PCP - General FAMILY PRACTICE 12/10/17 07/12/22 Gavin Gross MD [address] [facility] [address] [place] [address] PCP - General FAMILY PRACTICE 07/13/22 04/16/23 Pawan Echevarria MD [address] [facility] [address] [place] [address] PCP - General FAMILY PRACTICE 04/17/23 documented as of this encounter
--- OUTSIDE RECORDS SUMMARY | 2024-11-20 09:32 | XMS_ITS | Clinical Summary ---
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 - Spoke with her binder technician, Dr. Abdon Flynn ([facility] Medical Group Multispecialty [facility], to discuss the possibility of sparing inhales [...] 81 y.o. 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 8 COPD (chronic obstructive pulmonary disease) Encounters Date Type Department Care Team Description 10/01/2024 1:15 PM BINDER STRIPPER MACHINE Office Visit [facility] [address] [place] [address] [address] [place] [phone] Damien Plaza MD Nonischemic cardiomyopathy (HCC) (Primary Dx); PVC (premature ventricular contraction); Anxiety; Chronic hypoxic respiratory failure, on home oxygen therapy (HCC); YUNIOR (obstructive sleep apnea) 09/01/2024 Telephone [facility] [address] [place] [address] [address] [place] [phone] Heaven Rubin NP 08/29/2024 3:00 PM BINDER STRIPPER MACHINE Ancillary Procedure [facility] [address] [place] [address] [address] [place] [address] Nonischemic cardiomyopathy (HCC) 08/26/2024 Telephone [facility] [address] [place] [address] [place] [phone] Heaven Rubin NP Med Management from Last 3 Months Immunizations Immunization Administration Dates Next Due Influenza, Unspecified 07/07/2022(Deferr ed: Patient Refused),07/06/2021(Deferred: Patient Refused) Surgical History Surgery Date Site/Laterality Comments PARTIAL HIP ARTHROPLASTY APPENDECTOMY CATARACT EXTRACTION 08/2019 HYSTERECTOMY 2006 JOINT REPLACEMENT Hip Replacement 2005 Medical History Medical History Date Comments Cardiac [...] on file Legal Sex Female 3:43 AM BINDER STRIPPER MACHINE Gender Identity Female 02/01/2022 8:55 AM CDT Sexual Orientation Straight 02/01/2022 8: 55 AM CDT Obstetrics History Last Filed Vital Signs Vital Sign Reading Time Taken Comments Blood Pressure 150/68 10/01/2024 1:07 PM BINDER STRIPPER MACHINE Pulse 56 10/01/2024 1:07 PM BINDER STRIPPER MACHINE Temperature 36.9 C (98.5 F) 10/04/2022 11:40 AM BINDER STRIPPER MACHINE Respiratory Rate 20 03/18/2024 11:5 3 AM CDT Oxygen Saturation 91% 10/01/2024 1:0 7 PM BINDER STRIPPER MACHINE 2 Liters oxygen Inhaled Oxygen Concentration - - Weight 59.4 kg (131 lb) 10/01/2024 1:07 PM BINDER STRIPPER MACHINE Height 162.6 cm (5' 4 ) 10/01/2024 1:07 PM BINDER STRIPPER MACHINE Body Mass Index 22.49 10/01/2024 1:07 PM BINDER STRIPPER MACHINE Plan of Treatment Health Maintenance Due Date Last Done Comments Osteoporosis Screening-Bone Density Scan 1940 DTaP/Tdap/Td Vaccine (1 - Tdap) 02/14/1952 Hepatitis B Screening 1959 Pneumococcal vaccine 65+ (1 of 2 - PCV) 02/14/1960 Zoster Vaccine (1 of 2) 1991 Depression Screening 10/04/2023 10/04/2022, 03/29/20 22 Fall Risk Assessment 10/04/2023 10/04/2022, 03/29/20 22 Well Visit 65+ 10/04/2023 10/04/2022 Covid-19 Vaccine ( season) 05/18/202401/2021, 10/26/2020 Influenza Vaccine (#1) 2024 Procedures Procedure Name Priority Date/Time Associated Diagnosis Comments ELECTROCARDIOGRAM REPORT Routine 025 3:58 PM BINDER STRIPPER MACHINE PVC (premature ventricular contraction) TRANSTHORACIC ECHO (TTE) LIMITED/FOLLOW UP WO DOPPLER/CF WO CONTRAST Routine 08/29/2024 3:55 PM BINDER STRIPPER MACHINE Nonischemic cardiomyopathy (HCC) from Last 3 Months Results * Electrocardiogram Report (10/01/2024 3:58 PM BINDER STRIPPER MACHINE) us Damien Plaza MD ECG ORDERABLES Final Result * TRANSTHORACIC ECHO (TTE) LIMITED/FOLLOW UP WO DOPPLER/CF WO CONTRAST (08/29/2024 3:55 PM BINDER STRIPPER MACHINE) Anatomical Region Laterality Modality Ultrasound 08/29/2024 3:50 PM BINDER STRIPPER MACHINE Narrative 08/29/2024 4:17 PM BINDER STRIPPER MACHINE [facility] Medical Group Cardiology [address] [facility] [address] [address] [address] [facility] [address], [place] [address] P:[phone] P:[phone] Echocardiographic Report Patient Name: HERIBERTO TEJEDA M : 1940 Study Date: 08/29/2024 3:50:42 PM Gender: F Tech: Location: [facility] Provider: HEAVEN RUBIN Height(Cm): 163 BSA: [...] Site: Exam was interpreted at [facility]. Left Ventricle: Normal left ventricular size. [...] By: Ish Vidal MD 08/29/2024 4:17:28 PM BINDER STRIPPER MACHINE 40-45 Procedure Note Ish Vidal MD - 08/29/2024 [facility] Medical Group Cardiology [address] [facility] [address] [address] [address] [facility] [address], [place], [place] [address] P:[phone] P:[phone] Echocardiographic Report Patient Name: HERIBERTO TEJEDA M : 1940 Study Date: 08/29/2024 3:50:42 PM Gender: F Tech: Location: [facility] Provider: HEAVEN RUBIN Height(Cm): 163 BSA: [...] Site: Exam was interpreted at [facility]. Left Ventricle: Normal left ventricular size. [...] By: Ish Vidal MD 08/29/2024 4:17:28 PM BINDER STRIPPER MACHINE 40-45 Heaven Rubin NP CV ECHO PROCEDURES Final Result from Last [address] [id number] MEDICARE FOR [facility] [place] [address] MEDICARE FOR LIFE MEDICARE FOR LIFE Care Teams Stitch Burnisher Relationship Specialty Start Date End Date Pawan Echevarria MD [facility] [facility] [address] [place] [address] [place] [address] PCP - General Family Medicine 06/06/23
--- OUTSIDE RECORDS SUMMARY | 2024-11-20 09:32 | XMS_ITS | Referral Summary ---
Author Organization [facility] Virtual Care Address [address] [place] [address] Phone Care Team Providers Care Wall Taper Name Role Phone Pawan Echevarria MD Primary Care Provider [phone] Encounters Date Type Department Care Team Description 10/01/2024 1:15 PM CHAIN MAKER Office Visit [facility] Medical [facility] Cardiology [address] [place] [address] [place] [phone] Damien Plaza MD Nonischemic cardiomyopathy (HCC) (Primary Dx); PVC (premature ventricular contraction); Anxiety; Chronic hypoxic respiratory failure, on home oxygen therapy (HCC); YUNIOR (obstructive sleep apnea) 09/01/2024 Telephone [facility] [address] [place] [address] [place] [phone] Heaven Rubin NP 08/29/2024 3:00 PM CHAIN MAKER Ancillary Procedure [facility] [address] [place] [address] [place] [phone] Nonischemic cardiomyopathy (HCC) 08/26/2024 Telephone [facility] [address] [place] [address] [address] [place] [phone] Heaven Rubin NP Med Management from Last 3 Months Allergies No known [...] CMP checked today. 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 Abdon Flynn ([facility] Medical [facility] Multispec[facility]ty [facility], to discuss the possibility of [...] 81 y.o. 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 8 COPD (chronic obstructive pulmonary [...] on file Legal Sex Female 3:43 AM CHAIN MAKER Gender Identity Female 02/01/2022 8:55 AM CDT Sexual Orientation Straight 02/01/2022 8: 55 AM CDT Last Filed Vital Signs Vital Sign Reading Time Taken Comments Blood Pressure 150/68 10/01/2024 1:07 PM CHAIN MAKER Pulse 56 10/01/2024 1:07 PM CHAIN MAKER Temperature 36.9 C (98.5 F) 10/04/2022 11:40 AM CHAIN MAKER Respiratory Rate 20 03/18/2024 11:5 3 AM CDT Oxygen Saturation 91% 10/01/2024 1:0 7 PM CHAIN MAKER 2 Liters oxygen Inhaled Oxygen Concentration - - Weight 59.4 kg (131 lb) 10/01/2024 1:07 PM CHAIN MAKER Height 162.6 cm (5' 4 ) 10/01/2024 1:07 PM CHAIN MAKER Body Mass Index 22.49 10/01/2024 1:07 PM CHAIN MAKER Plan of Treatment Not on file Procedures Procedure Name Priority Date/Time Associated Diagnosis Comments ELECTROCARDIOGRAM REPORT Routine 025 3:58 PM CHAIN MAKER PVC (premature ventricular contraction) TRANSTHORACIC ECHO (TTE) LIMITED/FOLLOW UP WO DOPPLER/CF WO CONTRAST Routine 08/29/2024 3:55 PM CHAIN MAKER Nonischemic cardiomyopathy (HCC) from Last 3 Months Results * Electrocardiogram Report (10/01/2024 3:58 PM CHAIN MAKER) us Damien Plaza MD ECG ORDERABLES Final Result * TRANSTHORACIC ECHO (TTE) LIMITED/FOLLOW UP WO DOPPLER/CF WO CONTRAST (08/29/2024 3:55 PM CHAIN MAKER) Anatomical Region Laterality Modality Ultrasound 08/29/2024 3:50 PM CHAIN MAKER Narrative 08/29/2024 4:17 PM CHAIN MAKER [facility] Medical Group Cardiology [address], [place] [address] [address] [facility] [address], [place] [address] P:[phone] P:[phone] Echocardiographic Report Patient Name: HERIBERTO TEJEDA M : 1940 Study Date: 08/29/2024 3:50:42 PM Gender: F Tech: [place] Location: [place] Ref Provider: HEAVEN RUBIN Height(Cm): 163 BSA: 1.65 [...] FINDINGS: Interpretation Site: Exam was interpreted at [facility]. Left Ventricle: Normal left ventricular size. Mild [...] By: Ish Vidal MD 08/29/2024 4:17:28 PM CHAIN MAKER 40-45 Procedure Note Ish Vidal MD - 08/29/2024 [facility] Medical Group Cardiology [address] [facility] [address], [place] [address] [address] [facility] [address], [place] [address] P:[phone] P:[phone] Echocardiographic Report Patient Name: HERIBERTO TEJEDA M : 1940 Study Date: 08/29/2024 3:50:42 PM Gender: F Tech: Location: [facility] Provider: HEAVEN RUBIN Height(Cm): 163 BSA: [...] FINDINGS: Interpretation Site: Exam was interpreted at [facility]. Left Ventricle: Normal left ventricular size. Mild [...] By: Ish Vidal MD 08/29/2024 4:17:28 PM CHAIN MAKER 40-45 Heaven Rubin NP CV ECHO PROCEDURES Final Result from Last 3 [place] [id number] MEDICARE FOR LIFE MEDICARE FOR LIFE MEDICARE [facility] Care Teams Wall Taper Relationship Specialty Start Date End Date Pawan Echevarria MD [address] [facility] [address] [address] PCP - General Family Medicine 06/06/23
--- OUTSIDE RECORDS SUMMARY | 2024-11-20 09:33 | XMS_ITS | Data Portability ---
Author Organization [facility] ([facility] Telehealth (patients home) Address [address] [place] [address] Assessment Encounter Date Assessment Date Assessment LastModified by Organization Details LastModified Time 08/28/2023 08/28/2023 Patient evaluated for depressive and anxiety disorder. History and exam indicate MDD/ RD. I recommend restarting zoloft 25mg daily. Discussed goals of treatment and effectiveness of current treatment. Discussed follow up and orders indicated below. FAce to face 90 minutes [email or web address] Not available 08/28/2023 22:09:45 09/03/2024 09/03/2024 Met with Nora today for follow up on her mod MDD and RD PHQ9=10 GAD7= 13 mod Not available 09/03/2024 20:31:20 10/01/2024 10/01/2024 Met with Nora oden to follow-up on Zoloft PHQ-[address]-7 15 severe [email or web address] Not available 10/01/2024 13:30:17 Plan of Treatment Reminders Order Date Submit Date Provider Last Modified By Organization Details Last Modified Time Details Appointments Psychiatr ic Follow up 2024 01:00P Abril Neumann Not available Not available Not available Lab None recorded. Referral None recorded. Procedures None recorded. Surgeries None recorded. Imaging None recorded. Medication Orders Zoloft 50 mg tablet 2024 025 [id number], [address] [facility] [facility], [place], [place], [id number], 10/01/2024 13:29:57 Zoloft 50 mg tablet 2023 024 [id number], [address], [place], [place], [id number], 09/03/2024 15:01:16 Zoloft 50 mg tablet 2022 024 [facility] #[id number], [address], [place], [id number], 09/03/2024 14:31:19 Zoloft 25 mg tablet 2022 023 [email or web address] [facility][id number], [address], [place], [place], [id number], 09/03/2024 14:30:55 Patient TargetsNo targets recorded. Patient Instructions Encounter Date Encounter Id Patient Instructions Last Modified By Organization Details Last Modified Time 08/28/2023 [id number] recommend returning to therapy May benefit from grief support groups. rtc 2 weeks [email or web address] Not available 08/28/2023 16:21:39 Reason for Referral None Reported. Problems Name Problem SNOMED Code Status Onset Date Resolution Date Notes Provider Name and Address Organization Details Recorded Time Generalized anxiety disorder 63072155 Active 2022 Selam Neumann CNM, [facility] [address], [place], [address], [facility] 16:13:02 Anxiety 03262346 Active 2022 Selam Neumann CNM, [facility] [address], [place], [address], [facility] 13:22:24 Mild recurrent major depression 33470713 Active 2022 Selam Neumann CNM, [facility] [address], [place], [address], [facility] 13:22:45 Increased blood pressure 36745070 Active 2024 Selam Neumann CNM, [facility] [address], [place], [address], [facility] 5 13:28:28 Depressive disorder 71929610 Active 2022 [facility] Stella [facility] 3 14:08:50 Bronchiectasi s 52319715 Active 2022 Mark Douglas [facility] 3 14:15:47 Moderate recurrent major depression 69355646 Active 2022 Selam Neumann CNM, [facility]- [address], [place], [address], [facility] 3 16:12:57 Problem Notes None recorded. Procedures Surgical History Date Name Laterality Status Provider Name and Address Organization Details Recorded Time 08/21/20 05 Partial Hysterectomy completed [facility] 08/28/2023 14:18:29 biopsy of breast completed Maddie Gonzalez [facility] 09/03/2024 14:31:54 partial hip replacement by prosthesis completed [facility] 08/28/2023 14:18:05 Appendectomy completed [facility], [facility] 08/28/2023 14:18:46 Imaging Results None recorded. Procedure [...] Updated DateTime 3 162.56 cm 22.6 kg/m2 15403.0 4 g 84 /min 124 mm[Hg] 64 mm[Hg] Mark Douglas [facility] 3 14:11:31 Date Recorded Body height Body mass index (BMI) Body weight Heart rate Systolic blood pressure Diastolic blood pressure Provider Name and Address Organization Details Last Updated DateTime 3 162.56 cm 22.5 kg/m2 26853.6 g 73 /min 151 mm[Hg] 80 mm[Hg] Selam Neumann CNM, [facility] [address], [place], [address], [facility] 3 13:11:52 Date Recorded Body height Body mass index (BMI) Body weight Heart rate Systolic blood pressure Diastolic blood pressure Provider Name and Address Organization Details Last Updated DateTime 4 162.56 cm 23 kg/m2 50697.3 8 g 49 /min 121 mm[Hg] 70 mm[Hg] Maddie Gonzalez [facility] 4 14:30:09 Date Recorded Body height Body mass index (BMI) Body weight Heart rate Systolic blood pressure Diastolic blood pressure Provider Name and Address Organization Details Last Updated DateTime 5 162.56 cm 22.7 kg/m2 80505.1 9 g 92 /min 177 mm[Hg] 91 mm[Hg] Maddie Gonzalez [facility] 5 12:15:14 Date Recorded Heart rate Systolic blood pressure Diastolic blood pressure Provider Name and Address Organization Details Last Updated DateTime 10/01/2024 80 /min 158 mm[Hg] 78 mm[Hg] Selam Neumann CNM, [facility] [address], [place], [address], [facility] 10/01/2024 13:07:36 Social History Question Answer Notes LastModified by Organizat Pantry Details LastModified Time Tobacco Smoking Status Former Smoker Mark Douglas [facility] 08/28/2023 14:22:30 What Is Your Level [...] Anxious, Or Unable To Sleep At Night)? [id number] Information not available 08/28/2023 Do You Use [...] Selam Neumann CNM, [facility]- Main Office [address] [place] [address] 08/28/2023 14:01:40 08/28/2023 16:04:28 Moderate recurrent major depression 09104708 F33.1 restart zoloft 25mg daily, encouraged to take at bedtime. discussed can cause some gi disturbanc e but usually does not last longer than a few weeks Generalize d anxiety disorder 33357266 F41.1 start zoloftcont inue xanax as needed- prescribed by Dr Echevarria 1461 Selam Neumann CNM, [facility] Main Office [address] [place] [address] 09/11/2023 12:02:44 09/11/2023 13:01:59 Anxiety 65917336 F41.9 continue Xanax as needed, as prescribed by pcp Mild recur rent major depression 12425838 F33.0 increase zoloft to 50mg dailyencou raged getting into grief counseling or therapy at [facility] counseling rtc 3 weeks 4794 Selam Neumann CNM, [facility] Main Office [address] [place] [address] 09/03/2024 14:24:18 09/05/2024 13:09:29 Anxiety 16415788 F41.9 continue Xanax as needed, as prescribed by pcp Moderate r ecurrent major depression 69073698 F33.1 increase zoloft to 50mg daily, encouraged to take at bedtime. discussed can cause some gi disturbanc e but usually does not last longer than a few weeksrtc 4 weeksencou rage therapy weekly- starting back to therapy with FRANCISCO 5098 Selam Neumann CNM, [facility] Main Office [address] [place] [address] 10/01/2024 12:12:19 10/01/2024 15:35:02 Moderate recurrent major depression 16557539 F33.1 continue zoloft 50mg daily,rtc 3 monthsenco urage therapy weekly- starting with new therapist next week Anxiety 97989794 F41.9 continue Xanax as needed, as prescribed by pcp Increased blood pressure 50983910 R03.0 bp 177/91 on arrival to office. [...] Huerta Member ID Guarantor Name 08/28/2023 1 [place] Nora Tejeda [id number] Nora Tejeda 09/11/2023 1 [place] Nora Tejeda [id number] Nora Tejeda 09/03/2024 1 [place] Nora Tejeda [id number] Nora Tejeda 09/03/2024 2 FOR LIFE () Nora Tejeda [id number] Nora Tejeda 10/01/2024 1 [place] Nora Tejeda [id number] Nora Tejeda 10/01/2024 2 FOR LIFE () Nora Tejeda [id number] Nora Tejeda Notes Date Note Type Note [...] any AH or VH. Energy is good. eSlam Neumann CNM, [facility] [address], [place], [address], [facility] 08/28/2023 22:20:29 09/11/2023 text/html Met with [...] VH. Energy is good. Selam Neumann CNM, [facility] [address], [place], [address], [facility] 09/11/2023 13:44:31 09/03/2024 text/html Met with [...] a day. Denies isolating self. Went to zoroastrianism on sunday. Sleep- No problems falling or staying asleep. Takes Xanax prior to bedtime. Always wakes early in am. Denies any SI or Hi. Denies any AH or VH. Getting back into therapy with FRANCISCO. 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 Nora denies any SI or HI. Denies any auditory hallucinations or visual hallucinations. Starting with a new therapist next week Roxana Cleveland. Selam Neumann CNM, [facility] [address], [place], [address], [facility] 10/01/2024 13:30:53 OBGyn Episode No OBEpisode recorded.
--- OUTSIDE RECORDS SUMMARY | 2024-11-20 09:33 | XMS_ITS | Encounter Summary ---
Author Organization [facility] Address [address] [place] [address] Care Team Providers Care Overedger Name Role Phone Gavin Gross MD Primary Care Provider [phone] Pawan Echevarria MD Primary Care Provider [phone] Encounter Details Date Type Department Care Team (Late Contact Info) Description 03/14/2023 MyChart Message Enc [facility] Medical Group - [facility] [address] [place], [place] [address] [place], [facility] Provider Air Quality Message Social History Tobacco [...] Sex Assigned at Female 10/03/2024 2:27 PM HIDE CURER Legal Sex Female 4:16 PM CDT Gender Identity Not on file Sexual Orientation Not on file documented as of this encounter Plan of Treatment Upcoming Encounters Date Type Department Care Team (Late Contact Info) Description 01/14/2025 11:40 AM CDT Office Visit [facility] Medical Group Multispecialty Care - [facility] [address] [place] [address] Abdon Flynn MD [address] [facility] [address] [place] [address] documented as of this encounter Visit Diagnoses Not on filedocumented in this encounter Additional Health Concerns Infection Onset Date Last Indicated Resolved Time COVID-19 Rule Out 10/03/2024 10/03/2024 10/03/2024 5:30 PM HIDE CURER COVID-19 Rule Out 10/04/2024 10/04/2024 10/04/2024 3:19 AM HIDE CURER Influenza - Seasonal 10/04/2024 10/04/2024 025 12:32 AM HIDE CURER Assessment Noted Time PHQ-9 Depression Total Score: 0 12/13/19 22 11:54 AM CDT documented as of this encounter Care Teams Overedger Relationship Specialty Start Date End Date Gavin Gross MD [address] [facility] [address] [place] [address] PCP - General FAMILY PRACTICE 07/13/22 04/16/23 Pawan Echevarria MD [facility] [address] [place] [address] PCP - General FAMILY PRACTICE 04/17/23 documented as of this encounter
--- OUTSIDE RECORDS SUMMARY | 2024-11-20 09:33 | XMS_ITS | Encounter Summary ---
Author Organization [facility] Address [facility] [place] [address] Care Team Providers Care Performance Improvement Director Name Role Phone Gavin Gross MD Primary Care Provider [phone] Pawan Echevarria MD Primary Care Provider [phone] Encounter Details Date Type Department Care Team (Late st Contact Info) Description 12/08/2022 MyChart Message Enc [facility] Multispecialty Care - [address] [place] [address] Abdon Flynn MD [address] [place] [address] [address] [place] [address] Rx for Nebulizer Social History Tobacco Use [...] Sex Assigned at Female 10/03/2024 2:27 PM AUDITOR Legal Sex Female 4:16 PM CDT Gender [...] Description 01/14/2025 11:40 AM CDT Office Visit [facility]ty [facility] - [facility] [address] [facility] [place] [address] Abdon Flynn MD [address] [place] [address] [address] [place] [address] documented as of this encounter Visit Diagnoses Not on filedocumented in this encounter Additional Health Concerns Infection Onset Date Last Indicated Resolved Time COVID-19 Rule Out 10/03/2024 10/03/2024 10/03/2024 5:30 PM AUDITOR COVID-19 Rule Out 10/04/2024 10/04/2024 10/04/2024 3:19 AM AUDITOR Influenza - Seasonal 10/04/2024 10/04/2024 025 12:32 AM AUDITOR Assessment Noted Time PHQ-9 Depression Total Score: 0 12/13/19 22 11:54 AM CDT documented as of this encounter Care Teams Performance Improvement Director Relationship Specialty Start Date End Date Gavin Gross MD [address] [facility] [address] [place] [address] PCP - General FAMILY PRACTICE 07/13/22 04/16/23 Pawan Echevarria MD [address] [facility] [address] [place] [address] PCP - General FAMILY PRACTICE 04/17/23 documented as of this encounter
--- OUTSIDE RECORDS SUMMARY | 2024-11-20 09:33 | XMS_ITS | Clinical Summary ---
Author Organization [facility] Address [address] [place] [address] Care Team Providers Care Recruiting Internship Name Role Phone Pawan Echevarria MD Primary Care Provider [phone] Allergies Active Allergy Reactions Criticality Noted Date [...] STL ABSTRACTION Provider, Abstract 10/03/2024 Orders Only [facility] [place] [address] [place] [address] Warren Vaughn MD 10/02/2024 Orders Only [facility] - [address] [facility] [place] [address] Warren Vaughn MD from Last 3 Months [...] VACCINES (1 - Tdap) 02/14/1960 PNEUMOCOCCAL VACCINE 50+ YEA RS (1 of 2 - PCV) 02/14/1960 ZOSTER VACCINE (1 of 2) 1991 RSV VACCINE (60+ or ) (1 - 1-dose 75+ series) 02/14/2016 INFLUENZA VACCINE (#1) 2024 COVID-19 Vaccine (3 - season) 05/18/202401/2021, 10/26/2020 OSTEOPOROSIS SCREENING Completed 06/02/2024 Procedures Procedure Name Priority Date/Time Associated Diagnosis Comments CANCER ANTIGEN 15-3 Routine 10/03/2024 2 :11 PM CLINICAL DIETITIAN CBC WITH DIFFERENTIAL Routine 10/01/2024 3:09 PM CLINICAL DIETITIAN COMPREHENSIVE METABOLIC PANEL Routine 10/01/2024 11:45 AM CLINICAL DIETITIAN from Last 3 Months Results * CANCER ANTIGEN 15-3 (10/03/2024 2:11 PM CLINICAL DIETITIAN) Blood us Warren Vaughn MD CHEMISTRY ORDERABLES Final Resu lt * CBC WITH DIFFERENTIAL (10/01/2024 3:09 PM CLINICAL DIETITIAN) Blood us Warren Vaughn MD HEMATOLOGY ORDERABLES Final Res ult * COMPREHENSIVE METABOLIC PANEL (10/01/2024 11:45 AM CLINICAL DIETITIAN) Blood us Warren Vaughn MD CHEMISTRY ORDERABLES Final Resu lt from Last 3 Months Insurance MEDICARE PART A AND B FOR LIFE Care Teams Recruiting Internship Relationship Specialty Start Date End Date Pawan Echevarria MD [address] [place] [id number] PCP - General Family Practice 11/29/23
== END 2024-11-20 08:58 | disposition home or self-care (01) ==
PROVIDERS: PCP Family Medicine; Visit Provider Surgery
DX: C50.912 Malignant neoplasm of unspecified site of left female breast (principal); C77.3 Secondary and unspecified malignant neoplasm of axilla and upper limb lymph nodes
CPT/HCPCS: 20999; 38505; 76942; 88305; 88360; A4648

== ENCOUNTER 2024-12-03 18:24 | Inpatient (IN) | payer MEDICARE, OTHER, SELFPAY ==
[2024-12-03] VITALS (7 sets, daily range): BP systolic 135–166; BP diastolic 84–106; PULSE 95–106; RESP 20–27; TEMP 36.8; O2SAT 97–100
--- NOTE | ~2024-12-03 | CT_ITS ---
CLINICAL INDICATION: Shortness of breath and hypoxia. Personal history of breast cancer COMPARISON: None. Reference is made to a plain film evaluation of the thoracic spine dated 11/04/2024 and a PA and later al radiograph of the chest dated 08/24/2024. TECHNIQUE: Multiple contiguous axial images of the chest and thoracic spine was performed without the administration of intravenous contrast. This CT examination was performed utilizing dose reduction techniques. DLP: 145 mGy-cm FINDINGS/OBSERVATIONS: LUNG:Cylindrical and varicose bronchiectasis is identified within the bilateral lung johnson. No discrete consolidation, noncalcified pulmonary nodules or discrete lung mass is identified. Interstitial thickening is noted with a calcified nodule in the right axilla lower lobe suggesting pr ior granulomatous disease. HEART: The heart is of normal size, without pericardial effusion. MEDIASTINUM: Interval development of multiple lymph nodes within the mediastinum. Calcified lymph nod es within the right hilum, likely corresponding to the appearance on plain film evaluation. No pathologically enlarged or morphologically suspicious lymph nodes are identified within the right axilla, or within the soft tissues of the anterior chest wall. Redemonstration of the pathologically enlarged lymph node within the left axilla, consistent with patient's history.. SOFT TISSUES OF THE CHEST: Unremarkable. BONES OF THE CHEST: No acute fracture. No lytic or blastic lesions are identified. Anterior wedge compression of the the T6 vertebral body is redemonstrated, unchanged from 11/04/2024 p jair film evaluation, but an interval change from plain film evaluation dated 08/24/2024. Given the increased attenuation within the T6 vertebral body, a pathologic fracture cannot be exclude d. UPPER ABDOMEN: Limited evaluation without intravenous contrast. IMPRESSION: Redemonstration of the T6 vertebral body fracture which also demonstrates increased attenuation for w hich a pathologic fracture cannot be excluded. Interval development of the mediastinal lymphadenopathy, corresponding to the abnormality seen on pl ain film radiograph. Cylindrical and varicose bronchiectasis is also noted. Reviewed, dictated and finalized at location A. IMPRESSION: Redemonstration of the T6 vertebral body fracture which also demonstrates incre ased attenuation for which a pathologic fracture cannot be excluded. Interval development of the mediastinal lymphadenopathy, corresponding to the abnormality seen on plain film radiograph. Cylindrical and varicose bronchiectasis is also noted.
--- NOTE | ~2024-12-03 | XR_ITS ---
CHEST RADIOGRAPH, PA AND LATERAL CLINICAL HISTORY: SOB . COMPARISON: 08/24/2024 TECHNIQUE: PA and lateral views of the chest. FINDINGS Nodular opacification of the right hilum, which may be vascular in origin but an interval change from prior for which noncontrast enhanced CT examination of the chest is suggested. Remainder of the cardiomediastinal silhouette is otherwise unremarkable. Patchy opacification of the bilateral lung bases, unchanged from prior. IMPRESSION: Nodular opacification of the right hilum, which may be vascular in origin but an interval change from prior for which noncontrast enhanced CT examination of the chest is suggested. Reviewed, dictated and finalized at location A. IMPRESSION: Nodular opacification of the right hilum, which may be vascular in origin but a n interval change from prior for which noncontrast enhanced CT examination of t he chest is suggested.
--- NOTE | 2024-12-03 18:48 | ECG_ITS ---
Test Date: 2024-12-03 19:05:20 Measurements Intervals [place] Rate: 89 P: 98 KS: 186 QRS: -31 QRSD: 150 T: 126 QT: 390 QTc: 476 Interpretive Statements SINUS RHYTHM WITH OCCASIONAL VENTRICULAR PREMATURE COMPLEXES LEFT AXIS DEVIATION [QRS AXIS < -30] INTRAVENTRICULAR CONDUCTION DELAY [130+ ms QRS DURATION] MODERATE T-WAVE ABNORMALITY, CONSIDER LATERAL ISCHEMIA Electronically Signed On 12-04-2024 09:17:26 CDT by Ian Castillo M.D.
[2024-12-03 19:11] LABS: Basophils Percent Auto 0.2 % (0.2-1.2); Eosinophils Absolute Auto 0.1 K/mm3 (0-0.3); Eosinophils Percent Auto 0.6 % (0-4.4); Hematocrit 41.4 % (37.0-47.0); Hemoglobin 13.4 g/dL (12.0-15.0); Immature Granulocyte Absolute 0.07 K/mm3 (0.00-0.031); Immature Granulocyte Percent A 0.6 % (0-0.5); Lymphocytes Percent Auto 11.9 % (18.3-44.2); Mean Corpuscular HGB Conc 32.4 g/dl (32-36); Mean Corpuscular Hemoglobin 29.3 pg (26-34); Mean Corpuscular Volume 90.6 fl (80-100); Mean Platelet Volume 10.2 fl (7.4-10.4); Monocytes Absolute Auto 0.9 K/mm3 (0.1-0.6); Neutrophils Absolute Auto 10.1 K/mm3 (1.3-6.7); Neutrophils Percent Auto 79.7 % (45.5-73.1); Platelet Count Result 271 k/mm3 (150-375); Red Blood Count 4.57 M/mm3 (4.2-5.4); Red Cell Distribution Width 14.3 % (11.5-14.5); White Blood Count 12.7 K/mm3 (4.5-10.0)
--- OUTSIDE RECORDS SUMMARY | 2024-12-03 19:22 | XMS_ITS | Clinical Summary ---
Author Organization [facility] Virtual Care Address [address] [place] [address] Phone Care Team Providers Care K 9 Handler/ Deputy Name Role Phone Pawan Echevarria MD Primary Care Provider [phone] Allergies No known active allergies Medications calcium [...] mouth daily 90 tablet 6 5 Active flecainide (TAMBOCOR) 100 mg tablet Take 1 tablet (100 mg total) by mouth 2 (two) times a day 60 tablet 11 5 026 Active Active Problems Problem Noted Date Diagnosed [...] CMP checked today. - Spoke with her tensile tester, Dr. Abdon Flynn ([facility] Medical Group Multispecialty Care [facility]), to discuss the possibility of sparing inhales [...] 81 y.o. 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 8 COPD (chronic obstructive pulmonary disease) Encounters Date Type Department Care Team Description 12/01/2024 Telephone [facility] Medical [facility] [address] [place] [address] Damien Plaza MD 10/01/2024 1:15 PM BRAZING MACHINE OPERATOR AUTOMATIC Office Visit [facility] Medical [facility] Cardiology [address] [place] [address] Damien Plaza MD Nonischemic cardiomyopathy (HCC) (Primary Dx); PVC (premature ventricular contraction); Anxiety; Chronic hypoxic respiratory failure, on home oxygen therapy (HCC); YUNIOR (obstructive sleep apnea) from Last 3 Months Immunizations Immunization Administration [...] on file Legal Sex Female 3:43 AM BRAZING MACHINE OPERATOR AUTOMATIC Gender Identity Female 02/01/2022 8:55 AM CDT Sexual Orientation Straight 02/01/2022 8: 55 AM CDT Obstetrics History Last Filed Vital Signs Vital Sign Reading Time Taken Comments Blood Pressure 150/68 10/01/2024 1:07 PM BRAZING MACHINE OPERATOR AUTOMATIC Pulse 56 10/01/2024 1:07 PM BRAZING MACHINE OPERATOR AUTOMATIC Temperature 36.9 C (98.5 F) 10/04/2022 11:40 AM BRAZING MACHINE OPERATOR AUTOMATIC Respiratory Rate 20 03/18/2024 11:5 3 AM CDT Oxygen Saturation 91% 10/01/2024 1:0 7 PM BRAZING MACHINE OPERATOR AUTOMATIC 2 Liters oxygen Inhaled Oxygen Concentration - - Weight 59.4 kg (131 lb) 10/01/2024 1:07 PM BRAZING MACHINE OPERATOR AUTOMATIC Height 162.6 cm (5' 4 ) 10/01/2024 1:07 PM BRAZING MACHINE OPERATOR AUTOMATIC Body Mass Index 22.49 10/01/2024 1:07 PM BRAZING MACHINE OPERATOR AUTOMATIC Plan of Treatment Health Maintenance Due Date [...] Comments ELECTROCARDIOGRAM REPORT Routine 025 3:58 PM BRAZING MACHINE OPERATOR AUTOMATIC PVC (premature ventricular contraction) from Last 3 Months Results * Electrocardiogram Report (10/01/2024 3:58 PM BRAZING MACHINE OPERATOR AUTOMATIC) us Damien Plaza MD ECG ORDERABLES Final Result from Last 3 Months Insurance MEDICARE FOR LIFE MEDICARE FOR LIFE MEDICARE FOR LIFE Care Teams K 9 Handler/ Deputy Relationship Specialty Start Date End Date Pawan Echevarria MD [facility] [address] [address] PCP - General Family Medicine 06/06/23
--- OUTSIDE RECORDS SUMMARY | 2024-12-03 19:22 | XMS_ITS | Encounter Summary ---
Author Organization [facility] Address [address] [place] [address] Phone Care Team Providers Care Dance Teacher Name Role Phone Geeta Crisostomo MD Primary Care Provider [phone] Gavin Gross MD Primary Care Provider [phone] Pawan Echevarria MD Primary Care Provider [phone] Encounter Details Date Type Department Care Team [...] on file Legal Sex Female 3:43 AM CODING TEAM LEAD Gender Identity Female 02/01/2022 8:55 AM CDT [...] on filedocumented in this encounter Care Teams Dance Teacher Relationship Specialty Start Date End Date Geeta Crisostomo MD [address] [place] [address] PCP - General Family Medicine 03/08/18 03/28/22 Gavin Gross MD [address] [place] [address] PCP - General Family Medicine 03/29/22 06/05/23 Pawan Echevarria MD [address] [place] [address] [place] [address] PCP - General Family Medicine 06/06/23 documented as of this encounter
[2024-12-03 19:23] LABS: Alanine Aminotransferase 27 U/L (6-35); Albumin Level 4.2 g/dL (3.5-5.1); Alkaline Phosphatase 94 U/L (38-126); Anion Gap 8 mmol/L (4-12); Aspartate Amino Transferase 32 U/L (14-36); Bilirubin,Total 0.3 mg/dL (0.2-1.3); Blood Urea Nitrogen 24 mg/dL (7-17); Calcium 9.1 mg/dL (8.4-10.2); Carbon Dioxide 29 mmol/L (22-30); Chloride 100 mmol/L (98-107); Estimated Glomerular Filt Rate > 60; Glucose 145 mg/dL (65-110); Potassium 4.4 mmol/L (3.4-5.0); Sodium 137 mmol/L (137-145)
--- OUTSIDE RECORDS SUMMARY | 2024-12-03 19:23 | XMS_ITS | Encounter Summary ---
Author Organization [facility] Address [facility] [place] [address] Care Team Providers Care Transmitter Supervisor Name Role Phone Pawan Echevarria MD Primary Care Provider [phone] Encounter Details Date Type Department Care Team (Late st Contact Info) Description 10/03/2024 MyChart Message Enc [facility] Medical Group Multispecialty Care - [facility] [address] [facility] [place] [phone] Abdon Flynn MD [address] [place], [place] [address] [address] [place] [address] Fever/Shortness of Breath Social History Tobacco Use Types Packs/Day Years Used Date Smoking Tobacco: Former Cigarettes 0.3 6 0 02/25/1974 - 02/26/1980 Smokeless Tobacco: Never Alcohol Use Standard Drinks/Week Comments Yes 0 (1 standard drink = 0.6 oz pur e alcohol) minimal rare use [facility] Utilities Answer Date Recorded In the [...] and Family Not on file 10/04/2024 Attends Mosque Services Not on file 10/04 Active Member [...] Recorded Patient Health Questionnaire-2 Score 2 12/05/2022 [facility] of Occupat ional Health - Occupational Stress [...] any time in the past 12 m [facility], were you homeless or living in a fdc (including now)? 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 2:27 PM INFORMATION SYSTEMS ANALYST Legal Sex Female 4:16 PM CDT Gender Identity Not on file Sexual Orientation Not on file documented as of this encounter Functional Status documented as of this encounter Mental Status * Question Answer Entry Date Author Status Because of a physical, mental, or emotional condition, do you have serious difficulty concentrating, remembering, or making decisions? No 10/04/2024 5:00 PM INFORMATION SYSTEMS ANALYST Nighat Prado R N Active documented in this encounter Plan of Treatment Upcoming Encounters Date Type Department Care Team (Late st Contact Info) Description 01/14/2025 11:40 AM CDT Office Visit [facility] Medical Group Multispecialty Care - [facility] [address] [facility] [place] [address] Abdon Flynn MD [address] [place] [address] [address] [place] [address] documented as of this encounter Visit Diagnoses Not on filedocumented in this encounter Additional Health Concerns Infection Onset Date Last Indicated Resolved Time COVID-19 Rule Out 10/03/2024 10/03/2024 10/03/2024 5:30 PM INFORMATION SYSTEMS ANALYST COVID-19 Rule Out 10/04/2024 10/04/2024 10/04/2024 3:19 AM INFORMATION SYSTEMS ANALYST Influenza - Seasonal 10/04/2024 10/04/2024 025 12:32 AM INFORMATION SYSTEMS ANALYST Assessment Noted Time PHQ-9 Depression Total Score: 0 12/13/19 22 11:54 AM CDT documented as of this encounter Care Teams Transmitter Supervisor Relationship Specialty Start Date End Date Pawan Echevarria MD [address] [facility]NOTE 3] [address] [address] PCP - General FAMILY PRACTICE 04/17/23 documented as of this encounter
--- OUTSIDE RECORDS SUMMARY | 2024-12-03 19:23 | XMS_ITS | Encounter Summary ---
Author Organization [facility] Address [facility] [place] [address] Care Team Providers Care Schedule Clerk Name Role Phone Pawan Echevarria MD Primary Care Provider [phone] Encounter Details Date Type Department Care Team (Late st Contact Info) Description 11/18/[address] [facility] Medical Group Multispecialty Care - [facility] [address] [facility] [place] [phone] Abdon Flynn MD [address] [place], [place] [address] [address] [place] [address] Move Up Appointment Social History Tobacco Use [...] materials from doctor or pharmacy Never 10/24/2024 [facility] Utilities Answer Date Recorded In the [...] and Family Not on file 10/04/2024 Attends Orthodoxy Services Not on file 10/04 Active Member [...] Recorded Patient Health Questionnaire-2 Score 2 12/05/2022 [facility] of Occupat ional Health - Occupational Stress [...] any time in the past 12 m [facility], were you homeless or living in a alf (including now)? 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 2:27 PM SAFETY LAMP KEEPER Legal Sex Female 4:16 PM CDT Gender [...] 11:40 AM CDT Office Visit [facility] Medical [facility] Multispecialty Care - [facility] [address] [facility] [place] [address] Abdon Flynn MD [address] [facility] [address] [place] [address] documented as of this encounter Visit Diagnoses Not on filedocumented in this encounter Additional Health Concerns Assessment Noted Time PHQ-9 Depression Total Score: 0 12/13/19 22 11:54 AM CDT documented as of this encounter Care Teams Schedule Clerk Relationship Specialty Start Date End Date Pawan Echevarria MD [address] [facility] [address] [place] [address] PCP - General FAMILY PRACTICE 04/17/23 documented as of this encounter
--- OUTSIDE RECORDS SUMMARY | 2024-12-03 19:23 | XMS_ITS | Data Portability ---
Author Organization [facility], Telehealth (patients home) Address [address] [place] [address] Assessment Encounter Date Assessment Date Assessment LastModified by Organization Details LastModified Time 08/28/2023 08/28/2023 Patient evaluated for depressive and anxiety disorder. History and exam indicate MDD/ RD. I recommend restarting zoloft 25mg daily. Discussed goals of treatment and effectiveness of current treatment. Discussed follow up and orders indicated below. FAce to face 90 minutes [email or web address] Not available 08/28/2023 22:09:45 09/03/2024 09/03/2024 Met with Nora today for follow up on her mod MDD and RD PHQ9=10 GAD7= 13 mod [email or web address] Not available 09/03/2024 20:31:20 10/01/2024 10/01/2024 Met [...] Orders Zoloft 50 mg tablet 2024 025 [facility][id number], [address] [facility], [place], [place], [id number], 10/01/2024 13:29:57 Zoloft 50 mg tablet 2023 024 [facility] #[id number], [address] [facility], [place], [place], [id number], 09/03/2024 15:01:16 Zoloft 50 mg tablet 2022 024 [facility] #[id number], [address] [facility], [place], [place], [id number], 09/03/2024 14:31:19 Zoloft 25 mg tablet 2022 023 [email or web address] [id number], [address] [facility], [place], [place], [id number], 09/03/2024 14:30:55 Patient TargetsNo targets recorded. Patient Instructions Encounter Date Encounter Id Patient Instructions Last Modified By Organization Details Last Modified Time 08/28/2023 [id number] recommend returning to therapy May benefit from grief support groups. rtc 2 weeks [email or web address] Not available 08/28/2023 16:21:39 Reason for Referral None Reported. Problems Name Problem SNOMED Code Status Onset Date Resolution Date Notes Provider Name and Address Organization Details Recorded Time Generalized anxiety disorder 07066725 Active 2022 Selam Neumann CNM, [facility] [address], [place], [address], [facility] 16:13:02 Anxiety 80023748 Active 2022 Selam Neumann CNM, [facility] [address], [place], [address], [facility] 13:22:24 Mild recurrent major depression 35568391 Active 2022 Selam Neumann CNM, [facility] [address], [place], [address], [facility] 13:22:45 Increased blood pressure 68501601 Active 2024 Selam Neumann CNM, [facility] [address], [place], [address], [facility] 5 13:28:28 Depressive disorder 81418974 Active 2022 [facility] 3 14:08:50 Bronchiectasi s 11496999 Active 2022 Mark Douglas [facility] 3 14:15:47 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 Procedures Surgical History Date Name Laterality Status Provider Name and Address Organization Details Recorded Time 08/21/20 05 Partial Hysterectomy completed [facility] 08/28/2023 14:18:29 biopsy of breast completed Maddie Gonzalez [facility] 09/03/2024 14:31:54 partial hip replacement by prosthesis completed [facility] 08/28/2023 14:18:05 [facility]end[facility]/28[facility] 14:18:46 Imaging Results None recorded. Procedure [...] Updated DateTime 3 162.56 cm 22.6 kg/m2 58493.0 4 g 84 /min 124 mm[Hg] 64 mm[Hg] Mark Douglas [facility] 3 14:11:31 Date Recorded Body height Body mass index (BMI) Body weight Heart rate Systolic blood pressure Diastolic blood pressure Provider Name and Address Organization Details Last Updated DateTime 3 162.56 cm 22.5 kg/m2 14763.6 g 73 /min 151 mm[Hg] 80 mm[Hg] Selam Neumann CNM, [facility] [address], [place], [address], [facility] 3 13:11:52 Date Recorded Body height Body mass index (BMI) Body weight Heart rate Systolic blood pressure Diastolic blood pressure Provider Name and Address Organization Details Last Updated DateTime 4 162.56 cm 23 kg/m2 42684.3 8 g 49 /min 121 mm[Hg] 70 mm[Hg] Maddie Gonzalez [facility] 4 14:30:09 Date Recorded Body height Body mass index (BMI) Body weight Heart rate Systolic blood pressure Diastolic blood pressure Provider Name and Address Organization Details Last Updated DateTime 5 162.56 cm 22.7 kg/m2 87988.1 9 g 92 /min 177 mm[Hg] 91 mm[Hg] Maddie Gonzalez [facility] 5 12:15:14 Date Recorded Heart rate Systolic blood pressure Diastolic blood pressure Provider Name and Address Organization Details Last Updated DateTime 10/01/2024 80 /min 158 mm[Hg] 78 mm[Hg] Selam Neumann CNM, [facility] [address], [place], [address], [facility] 10/01/2024 13:07:36 Social History Question Answer Notes LastModified by Organizat [employer] Details LastModified Time Tobacco Smoking Status Former Smoker Mark Douglas [facility] 08/28/2023 14:22:30 What Is Your Level Of [...] Anxious, Or Unable To Sleep At Night)? [id number] Information not available 08/28/2023 Do You Use [...] CNM, PMP- Main Office [address] [place] [address] 08/28/2023 14:01:40 08/28/2023 16:04:28 Moderate recurrent major depression 21524042 F33.1 restart zoloft 25mg daily, encouraged to take at bedtime. discussed can cause some gi disturbanc e but usually does not last longer than a few weeks Generalize d anxiety disorder 79241772 F41.1 start zoloftcont inue xanax as needed- prescribed by Dr Echevarria 1461 Selam Neumann CNM, [facility] Main Office [address] [place] [address] 09/11/2023 12:02:44 09/11/2023 13:01:59 Anxiety 86994365 F41.9 continue Xanax as needed, as prescribed by pcp Mild recur rent major depression 89263678 F33.0 increase zoloft to 50mg dailyencou raged getting into grief counseling or therapy at [facility] counseling rtc 3 weeks 4794 Selam Neumann CNM, [facility] Main Office [address] [place] [address] 09/03/2024 14:24:18 09/05/2024 13:09:29 Anxiety 61529869 F41.9 continue Xanax as needed, as prescribed by pcp Moderate r ecurrent major depression 09806196 F33.1 increase zoloft to 50mg daily, encouraged to take at bedtime. discussed can cause some gi disturbanc e but usually does not last longer than a few weeksrtc 4 weeksencou rage therapy weekly- starting back to therapy with FRANCISCO 5098 Selam Neumann CNM, [facility] Main Office [address] [place] [address] 10/01/2024 12:12:19 10/01/2024 15:35:02 Moderate recurrent major depression 06949444 F33.1 continue zoloft 50mg daily,rtc 3 monthsenco urage therapy weekly- starting with new therapist next week Anxiety 15021394 F41.9 continue Xanax as needed, as prescribed by pcp Increased blood pressure 14126211 R03.0 bp 177/91 on arrival to office. [...] Huerta Member ID Guarantor Name 08/28/2023 1 [place] (MEDICARE) Nora Tejeda [id number] Nora Tejeda 09/11/2023 1 [place] Nora Tejeda [id number] Nora Tejeda 09/03/2024 1 [place]ARE) Nora Tejeda [id number] Nora Tejeda 09/03/2024 2 FOR LIFE () Nora Tejeda [id number] Nora Tejeda 10/01/2024 1 [place] ([place]ICARE) Nora Tejeda [id number] Nora Tejeda 10/01/2024 2 FOR LIFE () Nora Tejeda [id number] Nora Tejeda Notes Date Note Type Note [...] VH. Energy is good. Selam Neumann CNM, [facility] [address], [place], [address], [facility] 08/28/2023 22:20:29 09/11/2023 text/html Met [...] VH. Energy is good. Selam Neumann CNM, [facility] [address], [place], [address], [facility] 09/11/2023 13:44:31 09/03/2024 text/html Met [...] a day. Denies isolating self. Went to sikhism on sunday. Sleep- No problems falling or staying asleep. Takes Xanax prior to bedtime. Always wakes early in am. Denies any SI or Hi. Denies any AH or VH. Getting back into therapy with FRANCISCO. Selam Neumann CNM, [facility]- [address], [place], [address], [facility] 09/03/2024 20:45:26 10/01/2024 text/html Met [...] and will discuss that further with her legislative assistant today. Nora denies any SI or HI. Denies any auditory hallucinations or visual hallucinations. Starting with a new therapist next week Roxana [place]. Selam Neumann CNM, [facility] [address], [place], [address], [facility] 10/01/2024 13:30:53 OBGyn Episode No OBEpisode recorded.
--- OUTSIDE RECORDS SUMMARY | 2024-12-03 19:23 | XMS_ITS | Encounter Summary ---
Author Organization [facility] Address [address] [place] [address] Phone Care Team Providers Care Test Equipment Mechanic Name Role Phone Geeta Crisostomo MD Primary Care Provider [phone] Gavin Gross MD Primary Care Provider [phone] Pawan Echevarria MD Primary Care Provider [phone] Encounter Details Date Type Department Care Team [...] on file Legal Sex Female 3:43 AM WOOL CARDER Gender Identity Female 02/01/2022 8:55 AM CDT [...] on filedocumented in this encounter Care Teams Test Equipment Mechanic Relationship Specialty Start Date End Date Geeta Crisostomo MD [address] [place] [address] PCP - General Family Medicine 03/08/18 03/28/22 Gavin Gross MD [address] [place] [address] PCP - General Family Medicine 03/29/22 06/05/23 Pawan Echevarria MD [address] [place] [address] [place] [address] PCP - General Family Medicine 06/06/23 documented as of this encounter
--- OUTSIDE RECORDS SUMMARY | 2024-12-03 19:23 | XMS_ITS | Encounter Summary ---
Author Organization [facility] Address [facility] [place] [address] Care Team Providers Care Editorial Clerk Name Role Phone Edilberto Crisostomo MD Primary Care Provider [phone] Gavin Gross MD Primary Care Provider [phone] Pawan Echevarria MD Primary Care Provider [phone] Encounter Details Date Type Department Care Team (Late st Contact Info) Description 12/03/2020 TextMaster Message Enc [facility] Medical Group Multispecialty Care - [address], [address] [place] [address] Vik, [facility] Provider Provider Social History Tobacco [...] Sex Assigned at Female 10/03/2024 2:27 PM ELECTRONIC REPAIR TROUBLESHOOTER Legal Sex Female 4:16 PM CDT Gender Identity Not on file Sexual Orientation Not on file documented as of this encounter Plan of Treatment Upcoming Encounters Date Type Department Care Team (Late st Contact Info) Description 01/14/2025 11:40 AM CDT Office Visit [facility] Medical Group Multispecialty Care - [facility] [address] [place] [address] Abdon Flynn MD [address] [facility] [address] [place] [address] documented as of this encounter Visit Diagnoses Not on filedocumented in this encounter Additional Health Concerns Infection Onset Date Last Indicated Resolved Time COVID-19 Rule Out 10/03/2024 10/03/2024 10/03/2024 5:30 PM ELECTRONIC REPAIR TROUBLESHOOTER COVID-19 Rule Out 10/04/2024 10/04/2024 10/04/2024 3:19 AM ELECTRONIC REPAIR TROUBLESHOOTER Influenza - Seasonal 10/04/2024 10/04/2024 025 12:32 AM ELECTRONIC REPAIR TROUBLESHOOTER documented as of this encounter Care Teams Editorial Clerk Relationship Specialty Start Date End Date Edilberto Crisostomo MD [address] [place] [address] PCP - General FAMILY PRACTICE 12/10/17 07/12/22 Gavin Gross MD [address] [facility] [place] [facility] [address] [place] [address] PCP - General FAMILY PRACTICE 07/13/22 04/16/23 Pawan Echeavrria MD [address] [facility] [address] [place] [address] PCP - General FAMILY PRACTICE 04/17/23 documented as of this encounter
--- OUTSIDE RECORDS SUMMARY | 2024-12-03 19:23 | XMS_ITS | Encounter Summary ---
Author Organization [facility] Address [facility] [place] [address] Care Team Providers Care Hotel Services Sales Representative Name Role Phone Edilberto Crisostomo MD Primary Care Provider [phone] Gavin Gross MD Primary Care Provider [phone] Pawan Echevarria MD Primary Care Provider [phone] Encounter Details Date Type Department Care Team (Late st Contact Info) Description 03/22/2021 MyChart Message Enc [facility] Medical Group Multispecialty Care - [address], [address] [place] [address] Abdon Flynn MD [address] [place] [address] [address] [place] [address] Referral Request Social History Tobacco Use Types [...] Sex Assigned at Female 10/03/2024 2:27 PM FLUX MIXER Legal Sex Female 4:16 PM CDT Gender Identity Not on file Sexual Orientation Not on file documented as of this encounter Plan of Treatment Upcoming Encounters Date Type Department Care Team (Late st Contact Info) Description 01/14/2025 11:40 AM CDT Office Visit [facility] Medical Group Multispecialty Care - [facility] [address] [facility] [place] [address] Abdon Flynn MD [address] [facility] [address] [place] [address] documented as of this encounter Visit Diagnoses Not on filedocumented in this encounter Additional Health Concerns Infection Onset Date Last Indicated Resolved Time COVID-19 Rule Out 10/03/2024 10/03/2024 10/03/2024 5:30 PM FLUX MIXER COVID-19 Rule Out 10/04/2024 10/04/2024 10/04/2024 3:19 AM FLUX MIXER Influenza - Seasonal 10/04/2024 10/04/2024 025 12:32 AM FLUX MIXER documented as of this encounter Care Teams Hotel Services Sales Representative Relationship Specialty Start Date End Date Edilberto Crisostomo MD [address] [place] [address] PCP - General FAMILY PRACTICE 12/10/17 07/12/22 Gavin Gross MD [address] [facility] [address] [place] [address] PCP - General FAMILY PRACTICE 07/13/22 04/16/23 [place] [address] [place] [address] [address] [place] [address] PCP - General FAMILY PRACTICE 04/17/23 documented as of this encounter
--- OUTSIDE RECORDS SUMMARY | 2024-12-03 19:23 | XMS_ITS | Encounter Summary ---
Author Organization [facility] Address [facility] [place] [address] Care Team Providers Care Judicial Clerk Name Role Phone Gavin Gross MD Primary Care Provider [phone] Pawan Echevarria MD Primary Care Provider [phone] Encounter Details Date Type Department Care Team (Late st Contact Info) Description 12/08/2022 MyChart Message Enc [facility] Medical Group Multispecialty Care - [address] [place] [address] Abdon Flynn MD [address] [place] [address] [address] [place] [address] Rx for Nebulizer Social History Tobacco Use [...] Sex Assigned at Female 10/03/2024 2:27 PM IN HOME AIDE Legal Sex Female 4:16 PM CDT Gender [...] Description 01/14/2025 11:40 AM CDT Office Visit [facility] Medical Group Multispecialty Care - [facility] [address] [facility] [place] [address] Abdon Flynn MD [address] [place] [address] [address] [place] [address] documented as of this encounter Visit Diagnoses Not on filedocumented in this encounter Additional Health Concerns Infection Onset Date Last Indicated Resolved Time COVID-19 Rule Out 10/03/2024 10/03/2024 10/03/2024 5:30 PM IN HOME AIDE COVID-19 Rule Out 10/04/2024 10/04/2024 10/04/2024 3:19 AM IN HOME AIDE Influenza - Seasonal 10/04/2024 10/04/2024 025 12:32 AM IN HOME AIDE Assessment Noted Time PHQ-9 Depression Total Score: 0 12/13/19 22 11:54 AM CDT documented as of this encounter Care Teams Judicial Clerk Relationship Specialty Start Date End Date Gavin Gross MD [address] [facility] [address] [place] [address] PCP - General FAMILY PRACTICE 07/13/22 04/16/23 Pawan Echevarria MD [address] [facility] [address] [place] [address] PCP - General FAMILY PRACTICE 04/17/23 documented as of this encounter
--- OUTSIDE RECORDS SUMMARY | 2024-12-03 19:23 | XMS_ITS | Referral Summary ---
Author Organization [facility] Virtual Care Address [address] [place] [address] Phone Care Team Providers Care Motion Picture Camera Lens Technician Name Role Phone Pawan Echevarria MD Primary Care Provider [phone] Encounters Date Type Department Care Team Description 12/01/2024 Telephone [facility] Medical [facility] Cardiology [address] [facility] [address] [place] [address] Damien Plaza MD 10/01/2024 1:15 PM VICE PRESIDENT CORPORATE COMMUNICATIONS Office Visit [facility] Cardiology [address] [facility] [address] [place] [address] Damien Plaza MD Nonischemic cardiomyopathy (HCC) (Primary Dx); PVC (premature ventricular contraction); Anxiety; Chronic hypoxic respiratory failure, on home oxygen therapy (HCC); YUNIOR (obstructive sleep apnea) from Last 3 Months Allergies No known [...] CMP checked today. - Spoke with her tractor engine mechanic, Dr. Abdon Flynn ([facility] Multispecialty Care - [facility]), to discuss the possibility of sparing [...] 81 y.o. 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 8 COPD (chronic obstructive pulmonary [...] on file Legal Sex Female 3:43 AM VICE PRESIDENT CORPORATE COMMUNICATIONS Gender Identity Female 02/01/2022 8:55 AM CDT Sexual Orientation Straight 02/01/2022 8: 55 AM CDT Last Filed Vital Signs Vital Sign Reading Time Taken Comments Blood Pressure 150/68 10/01/2024 1:07 PM VICE PRESIDENT CORPORATE COMMUNICATIONS Pulse 56 10/01/2024 1:07 PM VICE PRESIDENT CORPORATE COMMUNICATIONS Temperature 36.9 C (98.5 F) 10/04/2022 11:40 AM VICE PRESIDENT CORPORATE COMMUNICATIONS Respiratory Rate 20 03/18/2024 11:5 3 AM CDT Oxygen Saturation 91% 10/01/2024 1:0 7 PM VICE PRESIDENT CORPORATE COMMUNICATIONS 2 Liters oxygen Inhaled Oxygen Concentration - - Weight 59.4 kg (131 lb) 10/01/2024 1:07 PM VICE PRESIDENT CORPORATE COMMUNICATIONS Height 162.6 cm (5' 4 ) 10/01/2024 1:07 PM VICE PRESIDENT CORPORATE COMMUNICATIONS Body Mass Index 22.49 10/01/2024 1:07 PM VICE PRESIDENT CORPORATE COMMUNICATIONS Plan of Treatment Not on file Procedures Procedure Name Priority Date/Time Associated Diagnosis Comments ELECTROCARDIOGRAM REPORT Routine 025 3:58 PM VICE PRESIDENT CORPORATE COMMUNICATIONS PVC (premature ventricular contraction) from Last 3 Months Results * Electrocardiogram Report (10/01/2024 3:58 PM VICE PRESIDENT CORPORATE COMMUNICATIONS) Damien Plaza MD ECG ORDERABLES Final Result from Last [address] [place] [address] MEDICARE FOR LIFE MEDICARE FOR LIFE MEDICARE FOR LIFE Care Teams Motion Picture Camera Lens Technician Relationship Specialty Start Date End Date Pawan Echevarria MD [address] [place] [address] [address] PCP - General Family Medicine 06/06/23
--- OUTSIDE RECORDS SUMMARY | 2024-12-03 19:23 | XMS_ITS | Encounter Summary ---
Author Organization [facility] Address [address] [place] [address] Care Team Providers Care Account Maintenance Representative Name Role Phone Gavin Gross MD Primary Care Provider [phone] Pawan Echevarria MD Primary Care Provider [phone] Encounter Details Date Type Department Care Team (Late Contact Info) Description 03/14/[address] [facility] - [facility] [address] [place], [place] [address] [facility], [facility] Provider Air Quality Message Social [...] Sex Assigned at Female 10/03/2024 2:27 PM REFINING EQUIPMENT OPERATOR Legal Sex Female 4:16 PM CDT Gender Identity Not on file Sexual Orientation Not on file documented as of this encounter Plan of Treatment Upcoming Encounters Date Type Department Care Team (Late Contact Info) Description 01/14/2025 11:40 AM CDT Office Visit [facility] Medical [facility] Multispecialty Care - [facility] [address] [facility] [place] [address] Abdon Flynn MD [address] [facility] [address] [place] [address] documented as of this encounter Visit Diagnoses Not on filedocumented in this encounter Additional Health Concerns Infection Onset Date Last Indicated Resolved Time COVID-19 Rule Out 10/03/2024 10/03/2024 10/03/2024 5:30 PM REFINING EQUIPMENT OPERATOR COVID-19 Rule Out 10/04/2024 10/04/2024 10/04/2024 3:19 AM REFINING EQUIPMENT OPERATOR Influenza - Seasonal 10/04/2024 10/04/2024 025 12:32 AM REFINING EQUIPMENT OPERATOR Assessment Noted Time PHQ-9 Depression Total Score: 0 12/13/19 22 11:54 AM CDT documented as of this encounter Care Teams Account Maintenance Representative Relationship Specialty Start Date End Date Gavin Gross MD [address] [facility] [place] [address] PCP - General FAMILY PRACTICE 07/13/22 04/16/23 Pawan Echevarria MD [facility] [facility] [address] [place] [address] PCP - General FAMILY PRACTICE 04/17/23 documented as of this encounter
--- OUTSIDE RECORDS SUMMARY | 2024-12-03 19:23 | XMS_ITS | Clinical Summary ---
Author Organization [facility] Address [facility] [place] [address] Care Team Providers Care Roll Forming Machine Set Up Operator Name Role Phone Pawan Echevarria MD Primary Care Provider [phone] Allergies Active Allergy Reactions Criticality Noted Date Comments Ipratropium Unknown 07/04/2018 Levofloxacin Hallucinations Medium 10/06/2024 Eden's Pain Patient reported during admission 09/2024 after [...] (NEBULIZER/TUBING /MOUTHPIECE) KitIndications:Br onchiectasis without complication (CMS/HCC [facility]) 1 each by Does not apply route every 4 (four) hours as needed. 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 COPD (chronic obstructive pu lmonary disease) ([facility]) 03/05/2018 History of Pseudomonas pneumonia 01/27/2018 Pleural thickening 01/27/2018 Bacterial infection 12/13/2017 Chronic cough 12/10/2017 Asthma exacerbation ([facility]/HCC) 12/10/2017 Wheeze 12/10/2017 Resolved Problems Problem Noted Date Diagnosed Date Resolved Date Encounter for preventive health examination 11/07/2017 05/28/2020 Encounters Date Type Department Care Team Description 11/18/2024 MyChart Message Enc [facility] Medical [facility] Multispecialty Care - [facility] [address] [place] [phone] Naeem Grissom MD Move Up Appointment 10/28/2024 Telephone [facility] [place] [address] [place] [phone] Naeem Grissom MD Results 10/24/2024 12:00 PM MANAGER PRODUCT MARKETING Home Care Visit [address] [place] [address] Juana Gonzalez, RN SN OASIS DISCHARGE/ASSESSMENT 10/24/2024 Home Care Visit [address] [place] [address] Juana Gonzalez, RN [facility] [place] 10/22/2024 11:30 AM MANAGER PRODUCT MARKETING Home Care Visit [facility] Care [address] [place] [address] [place] [address] Juana Gonzalez, RN SN HOME VISIT 10/17/2024 9:45 AM MANAGER PRODUCT MARKETING Home Care Visit [facility] Care [address] [place] [address] [place] [address] Juana Gonzalez, RN SN HOME VISIT 10/14/2024 1:30 PM MANAGER PRODUCT MARKETING Home Care Visit [facility] Care [address] [place] [address] [place] [address] Iris Chauhan od, LPN SN HOME VISIT 10/13/2024 4:00 PM MANAGER PRODUCT MARKETING Home Care Visit [facility] Care [address] [place] [address] [place] [address] Olga Huertas, PT PT INITIAL EVALUATION 10/09/2024 10:30 AM MANAGER PRODUCT MARKETING Home Care Visit [facility] Home Care [address] [place] [address] [place] [address] Juana Gonzalez RN SN OASIS START OF CARE 10/09/2024 Home Care Visit [facility] Care [address] [place] [address] [place] [address] Juana Gonzalez RN COC COORD OF CARE INTERDISCIPLINARY MTG 10/09/2024 Plan of Care Documentation [facility] Home Care [address] [place], [place] [id number] 10/08/2024 10:00 AM MANAGER PRODUCT MARKETING Home Care Visit [facility] Care [address] [place] [address] [place] [address] Eveline Newton RN SN NON ADMIT SOC 10/06/2024 11:45 AM MANAGER PRODUCT MARKETING Home Care Visit [facility] Care [address] [place], [place] [id number] Denice Lizarraga HEALTH INFORMATION MANAGERS VISIT 10/03/2024 3:39 PM MANAGER PRODUCT MARKETING - 10/08/2024 3:59 PM MANAGER PRODUCT MARKETING Hospital Encounter [facility] [place] [address] Sarthak Hendrickson MD Alexander, Kaci M, Nelson High DO Suresh, Aditya Krishna, MD Shortness Of Breath Discharge Disposition: Home with Home Health Care 10/03/2024 Travel 10/03/2024 MyChart Message Enc [facility] Medical [facility] Multispecialty Care - [facility] [address] [facility], [address] [place] [phone] Naeem Grissom MD Fever/Shortness of Breath 09/22/2024 2:51 PM MANAGER PRODUCT MARKETING - 09/22/2024 11:59 PM MANAGER PRODUCT MARKETING Hospital Encounter [facility] [address] [place] [address] Naeem Grissom MD Snoring Discharge Disposition: Home or Self Care (Routine Discharge) 09/22/2024 Travel 09/11/2024 10:20 AM MANAGER PRODUCT MARKETING Office Visit [facility] Multispecialty Care - [facility] [address] [place] [phone] Naeem Grissom MD Follow Up (Was at [place] 08/2024 for UTI (had EKG and CXR [...] materials from doctor or pharmacy Never 10/24/2024 [facility] Utilities Answer Date Recorded In the past 12 months has th e [employer], gas, oil, or water [employer] threatened to shut off services in your [...] and Family Not on file 10/04/2024 Attends [employer] Not on file 10/04 Active Member [...] Recorded Patient Health Questionnaire-2 Score 2 12/05/2022 [facility] - Occupational [...] Sex Assigned at Female 10/03/2024 2:27 PM MANAGER PRODUCT MARKETING Legal Sex Female 4:16 PM CDT Gender Identity Not on file Sexual Orientation Not on file Last Filed Vital Signs Vital Sign Reading Time Taken Comments Blood Pressure 112/54 10/24/2024 12:28 PM MANAGER PRODUCT MARKETING Pulse 78 10/24/2024 12:28 PM MANAGER PRODUCT MARKETING Temperature 36.6 C (97.9 F) 10/14/2024 1:35 PM MANAGER PRODUCT MARKETING Respiratory Rate 20 10/24/2024 12:28 PM MANAGER PRODUCT MARKETING Oxygen Saturation 93% 10/24/2024 12:28 PM MANAGER PRODUCT MARKETING Inhaled Oxygen Concentration - - Weight 59 kg (130 lb) 10/24/2024 12:28 PM MANAGER PRODUCT MARKETING Height 162.6 cm (5' 4 ) 10/03/2024 8:42 PM MANAGER PRODUCT MARKETING Body Mass Index 22.31 10/03/2024 8:42 PM MANAGER PRODUCT MARKETING Plan of Treatment Upcoming Encounters Date Type Department Care Team (Late st Contact Info) Description 01/14/2025 11:40 AM CDT Office Visit [facility] Medical Group Multispecialty Care - [facility] [address] [place] [address] Naeem Grissom MD [address] [facility] [address] [place] [address] Health Maintenance Due Date Last Done Comments [...] 10/26/2020 Influenza Adult (#1) 2024 PHQ-2 (Physician [place]) 09/17/2024 10/25/2023 Meningococcal B Vaccine Aged Out [...] HOME O2 EVAL Routine 10/08/2024 11:26 AM MANAGER PRODUCT MARKETING CBC W/DIFF AUTOMATED Routine 10/08/2024 5:46 AM MANAGER PRODUCT MARKETING BASIC METABOLIC PANEL Routine 10/08/2024 5:46 AM MANAGER PRODUCT MARKETING CBC W/DIFF AUTOMATED Routine 10/07/2024 6:07 AM MANAGER PRODUCT MARKETING BASIC METABOLIC PANEL Routine 10/07/2024 6:07 AM MANAGER PRODUCT MARKETING CBC W/DIFF AUTOMATED Routine 10/06/2024 6:13 AM MANAGER PRODUCT MARKETING BASIC METABOLIC PANEL Routine 10/06/2024 6:13 AM MANAGER PRODUCT MARKETING CBC W/DIFF AUTOMATED Routine 10/05/2024 8:03 AM MANAGER PRODUCT MARKETING BASIC METABOLIC PANEL Routine 10/05/2024 8:03 AM MANAGER PRODUCT MARKETING CULTURE LOWER RESPIRATORY W/GRAM STAIN STAT 10/04/2024 1:32 PM MANAGER PRODUCT MARKETING CULTURE, TB/AFB W/ STAIN STAT 10/04/2024 1:32 PM MANAGER PRODUCT MARKETING COMPREHENSIVE METABOLIC PANEL STAT 10/04/2024 6:00 AM MANAGER PRODUCT MARKETING CBC W/DIFF AUTOMATED STAT 10/04/2024 6:00 AM MANAGER PRODUCT MARKETING RESPIRATORY PCR PANEL 2 STAT 10/04/2024 1:12 AM MANAGER PRODUCT MARKETING HC MYCOPLASMA AB-90 Routine 10/04/2024 1 2:31 AM MANAGER PRODUCT MARKETING CULTURE, BACTERIA, BLOOD STAT 10/03/2024 11:10 PM MANAGER PRODUCT MARKETING ECG 12-LEAD STAT 10/03/2024 4:49 PM MANAGER PRODUCT MARKETING CULTURE LOWER RESPIRATORY W/GRAM STAIN STAT 10/03/2024 4:27 PM MANAGER PRODUCT MARKETING INFLUENZA A & B STAT 10/03/2024 4:27 PM MANAGER PRODUCT MARKETING CORONAVIRUS (COVID 19) STAT 4:27 PM MANAGER PRODUCT MARKETING LEGIONELLA AG URINE STAT 10/03/2024 4 :15 PM MANAGER PRODUCT MARKETING HC INFECT AGENT DETECT OPTICAL STAT 10/03/2024 4:15 PM MANAGER PRODUCT MARKETING TSH W/REFLEX Routine 10/03/2024 4:15 PM MANAGER PRODUCT MARKETING PHOSPHORUS, INORGANIC PHOSPHATE Routine 10/03/2024 4:15 PM MANAGER PRODUCT MARKETING MAGNESIUM Routine 10/03/2024 4:15 PM MANAGER PRODUCT MARKETING PROCALCITONIN (PCT) STAT 10/03/2024 4 :15 PM MANAGER PRODUCT MARKETING URINALYSIS, AUTO, COMPLETE STAT 10/03/2024 4:15 PM MANAGER PRODUCT MARKETING COMPREHENSIVE METABOLIC PANEL STAT 10/03/2024 4:15 PM MANAGER PRODUCT MARKETING CBC W/DIFF AUTOMATED STAT 10/03/2024 4:15 PM MANAGER PRODUCT MARKETING PRO-BRAIN NATRIURETIC PEPTIDE STAT 10/03/2024 4:15 PM MANAGER PRODUCT MARKETING TROPONIN, QUANT STAT 10/03/2024 4:15 PM MANAGER PRODUCT MARKETING BLOOD GAS, ARTERIAL LAB STAT 10/03/2024 4:05 PM MANAGER PRODUCT MARKETING XR CHEST PA+LAT STAT 10/03/2024 3:05 PM MANAGER PRODUCT MARKETING HOME SLEEP STUDY - WATCHPAT Routine 09/22/2024 3:00 PM MANAGER PRODUCT MARKETING Snoring from Last 3 Months Results * (ABNORMAL) BASIC METABOLIC PANEL (10/08/2024 5:46 AM MANAGER PRODUCT MARKETING) Only the most recent of4 resultswithin the time period is included. GLUCOSE 84 70 - 99 MG/DL 10/08/2024 9:39 AM MANAGER PRODUCT MARKETING [facility] BUN 19(H) 7 - 18 MG/DL 10/08/2024 9:39 AM MANAGER PRODUCT MARKETING [facility] CREATININE S/P/B 0.58 0.55 - 1.02 MG/DL 10/08/2024 9:39 AM MANAGER PRODUCT MARKETING [facility] SODIUM S/P/B 134(L) 136 - 145 MMOL/L 10/08/2024 9:39 AM MANAGER PRODUCT MARKETING [facility] POTASSIUM S/P/B 4.0 3.5 - 5.1 MMOL/L 10/08/2024 9:39 AM MANAGER PRODUCT MARKETING [facility] CHLORIDE S/P/B 102 97 - 115 MMOL/L 10/08/2024 9:39 AM MANAGER PRODUCT MARKETING [facility] CO2 29.0 21 - 32 MMOL/L 10/08/2024 9:39 AM MANAGER PRODUCT MARKETING [facility] CALCIUM S/P/B 8.6 8.5 - 10.1 MG/DL 10/08/2024 9:39 AM [facility] ANION GAP 3.0 2 - 10 MMOL/L 10/08/2024 9:39 AM [facility] BUN CREATININE RATIO 32.9(H) 6 - 26 10/08/2024 9:39 AM [facility] GFR ESTIMATE 90(L) >90 ML/MIN/1.7 3 M2 10/08/2024 9:39 AM [facility] Comment: NOTE: eGFR is not calculated for patients <18 years of age or gender unknown. This is an estimated GFR calculation using the new CKD EPI creatinine equation without race and so does not require a correction factor for race. This estimated GFR should not be used for calculating drug doses. 10/08/2024 5:46 AM MANAGER PRODUCT MARKETING Wolf Turner MD LABORATORY Final R esult [facility] [address] [place] [address], * (ABNORMAL) CBC W/DIFF AUTOMATED (10/08/2024 5:46 AM MANAGER PRODUCT MARKETING) Only the most recent of6 resultswithin the time period is included. WBC 4.27(L) 4.5 - 11.0 x10'3/uL 10/08/2024 6:40 AM [facility] RBC 4.40 4.20 - 5.40 x10'6/uL 10/08/2024 6:40 AM [facility] HGB 12.5 12.0 - 16.0 G/DL 10/08/2024 6:40 AM [facility] HCT 39.2 38.0 - 48.0 % 10/08/2024 6:40 AM [facility] MCV 89.1 81.0 - 99.0 FL 10/08/2024 6:40 AM [facility] MCH 28.4 27.0 - 31.0 PG 10/08/2024 6:40 AM [facility] MCHC 31.9(L) 32.0 - 36.0 G/DL 10/08/2024 6:40 AM [facility] RDW 13.0 11.5 - 14.5 % 10/08/2024 6:40 AM [facility] PLT 180 130 - 400 x10'3/uL 10/08/2024 6:40 AM [facility] MPV 10.2 9.3 - 12.2 FL 10/08/2024 6:40 AM [facility] DIFFERENTIAL TYPE AUTOMATED DIFFERENTIAL 10/08/2024 6:40 AM [facility] NEUTROPHILS % 57.7 % 10/08/2024 6:40 AM [facility] LYMPHOCYTES % 28.8 % 10/08/2024 6:40 AM [facility] MONOCYTES % 13.1 % 10/08/2024 6:40 AM [facility] EOSINOPHILS 0.0 % 10/08/2024 6:40 AM [facility] BASOPHILS 0.2 % 10/08/2024 6:40 AM [facility] IMMATURE GRANS % 0.2 % 10/08/19 6:40 AM [facility] ABS. NEUTROPHILS 2.46 1.80 - 7.70 x10'3/uL 10/08/2024 6:40 AM [facility] ABS. LYMPHOCYTES 1.23 1.00 - 4.80 x10'3/uL 10/08/2024 6:40 AM MANAGER PRODUCT MARKETING [facility] ABS. MONOCYTES 0.56 0.24 - 0.86 x10'3/uL 10/08/2024 6:40 AM MANAGER PRODUCT MARKETING [facility] ABS. EOSINOPHILS 0.00(L) 0.04 - 0.36 x10'3/uL 10/08/2024 6:40 AM MANAGER PRODUCT MARKETING [facility] ABS. BASOPHILS 0.01 0.01 - 0.08 x10'3/uL 10/08/2024 6:40 AM MANAGER PRODUCT MARKETING [facility] ABS. IMMATURE GRANULOCYTES 0.01 0.00 - 0.49 x10'3/uL 10/08/2024 6:40 AM MANAGER PRODUCT MARKETING [facility] 10/08/2024 5:46 AM MANAGER PRODUCT MARKETING Wolf Turner MD LABORATORY Final R esult [facility] [address] [place] [address], * CULTURE, TB/AFB W/ STAIN (10/04/2024 1:32 PM MANAGER PRODUCT MARKETING) SPECIMEN SOURCE SPUTUM, EXPECTORATED 10/04/2024 5:04 PM MANAGER PRODUCT MARKETING [facility] RESULT REPORT 10/07/2024 4:58 PM MANAGER PRODUCT MARKETING [facility] EMMIE HUTSON Comment: Mycobacteria, Culture, with Fluorochrome Smear Mycobacteria Stn,AF,Fluor SOURCE : SPUTUM, EXPECTOR Result/Comment: No acid-fast bacilli seen. Mycobacteria smear result should be used as an adjunct to culture in diagnosing mycobacterial disease (e.g. tuberculosis). If intended, please ensure an order for Mycobacteria (Fhky-Gewq-Bjtmmbk) culture has also been submitted. Acid Fast Culture SOURCE : SPUTUM, EXPECTOR Result/Comment: No Mycobacterium species isolated after 6 weeks incubation. Test Performed by Jose D Gastelum [facility], [address] [place], [place] [address], [place] Cj Dallas M.D., Ph.D., Director of Laboratories , [facility] [id number] REPORT STATUS FINAL 11/19/2024 9:06 AM MANAGER PRODUCT MARKETING [facility] EMMIE HUTSON SPUTUM / Unknown 10/04/2024 1:32 PM MANAGER PRODUCT MARKETING Robin Garcia DO MICROBIOLOGY - GENERAL ORD ERABLES Final Result [facility] [address] [place], [place] , [place] [phone] [facility] [address] [place] [address], [place] [phone] * (ABNORMAL) CULTURE RESPIRATORY W/ GRAM STAIN (10/04/2024 1:32 PM MANAGER PRODUCT MARKETING) Only the most recent of2 resultswithin the time period is included. SPEC DESCRIPTION SPUTUM, EXPECTORATED 10/04/2024 1:32 PM MANAGER PRODUCT MARKETING [facility] SPECIAL REQUESTS NO SPECIAL REQUEST 10/04/2024 1:32 PM MANAGER PRODUCT MARKETING [facility] GRAM STAIN RESULT MODERATE WHITE BLOOD CELLS SEEN 10/05/2024 10:17 AM [facility] GRAM STAIN RESULT FEW MIXED BACTERIAL NIKOLE 10/05/2024 10:17 AM [facility] CULTURE RESULT SPARSE GROWTH OF PSEUDOMONAS AERUGINOSA SUSCEPTIBILITY ON PREVIOUS SPECIMEN [id number] NOTE: ORGANISM MAY DEVELOP RESISTANCE AFTER 3 TO 4 DAYS OF THERAPY WITH THIRD GENERATION CEPHALOSPORINS. TESTING OF REPEAT ISOLATES MAY BE WARRANTED. (A) 10/06/2024 8:37 AM MANAGER PRODUCT MARKETING [facility] CULTURE RESULT LIGHT GROWTH OF NORMAL NIKOLE PRESENT 10/06/2024 8:37 AM [facility] SPUTUM SPECIMEN / Unknown 10/04/2024 1:32 PM MANAGER PRODUCT MARKETING 10/04/2024 1:46 PM MANAGER PRODUCT MARKETING us Robin Garcia DO MICROBIOLOGY - GENERAL ORD ERABLES Final Result [facility] [address] [place] [address], [place] [phone] * (ABNORMAL) COMPREHENSIVE METABOLIC PANEL (10/04/2024 6:00 AM MANAGER PRODUCT MARKETING) Only the most recent of2 resultswithin the time period is included. GLUCOSE 119(H) 70 - 99 MG/DL 10/04/2024 6:37 AM [facility] BUN 17 7 - 18 MG/DL 10/04/2024 6:37 AM [facility] CREATININE S/P/B 0.72 0.55 - 1.02 MG/DL 10/04/2024 6:37 AM [facility] SODIUM S/P/B 133(L) 136 - 145 MMOL/L 10/04/2024 6:37 AM [facility] POTASSIUM S/P/B 4.0 3.5 - 5.1 MMOL/L 10/04/2024 6:37 AM [facility] CHLORIDE S/P/B 102 97 - 115 MMOL/L 10/04/2024 6:37 AM [facility] CO2 25.8 21 - 32 MMOL/L 10/04/2024 6:37 AM [facility] CALCIUM S/P/B 8.7 8.5 - 10.1 MG/DL 10/04/2024 6:37 AM [facility] BILIRUBIN TOTAL S/P/B 0.3 0.2 - 1.2 MG/DL 10/04/2024 6:37 AM [facility] Comment: THIS ASSAY IS NOT RECOMMENDED FOR PATIENTS UNDERGOING TREATMENT WITH ELTROMBOPAG DUE TO THE POTENTIAL FOR FALSELY ELEVATED RESULTS. TOTAL PROTEIN S/P/B 6.5 6.4 - 8.2 G/DL 10/04/2024 6:37 AM [facility] ALBUMIN S/P/B 3.1(L) 3.4 - 5.0 G/DL 10/04/2024 6:37 AM [facility] AST 13(L) 15 - 37 U/L 10/04/2024 6:37 AM [facility] ALT 19 14 - 55 U/L 10/04/2024 6:37 AM [facility] ALKALINE PHOSPHATASE S/P/B 49(L) 50 - 136 U/L 10/04/2024 6:37 AM [facility] ANION GAP 5.2 2 - 10 MMOL/L 10/04/2024 6:37 AM [facility] BUN CREATININE RATIO 23.7 6 - 26 10/04/2024 6:37 AM [facility] A/G RATIO 0.9(L) 1.0 - 2.0 RATIO 10/04/2024 6:37 AM [facility] GFR ESTIMATE 83(L) >90 ML/MIN/1.7 3 M2 10/04/2024 6:37 AM [facility] Comment: NOTE: eGFR is not calculated for patients <18 years of age or gender unknown. This is an estimated GFR calculation using the new CKD EPI creatinine equation without race and so does not require a correction factor for race. This estimated GFR should not be used for calculating drug doses. 10/04/2024 6:00 AM MANAGER PRODUCT MARKETING us Lilibeth Manzano DECORATOR MANNEQUIN LABORATORY Final Resul t [facility] [address] [place] [address], [place] [phone] * (ABNORMAL) RESPIRATORY PCR PANEL 2 (10/04/2024 1:12 AM MANAGER PRODUCT MARKETING) Pathologist [facility] ADENOVIRUS PCR (RESP) NOT DETECTED NOT DETECTED 10/04/2024 3:19 AM [facility] CORONAVIRUS 229E PCR (RESP) NOT DETECTED NOT DETECTED 10/04/2024 3:19 AM [facility] CORONAVIRUS HKU1 PCR (RESP) NOT DETECTED NOT DETECTED 10/04/2024 3:19 AM [facility] CORONAVIRUS NL63 PCR (RESP) NOT DETECTED NOT DETECTED 10/04/2024 3:19 AM [facility] CORONAVIRUS OC43 PCR (RESP) NOT DETECTED NOT DETECTED 10/04/2024 3:19 AM [facility] METAPNEUMOVIRUS PCR (RESP) NOT DETECTED NOT DETECTED 10/04/2024 3:19 AM [facility] RHINOVIRUS/ENTEROV IRUS PCR (RESP) NOT DETECTED NOT DETECTED 10/04/2024 3:19 AM [facility] INFLUENZA A/H1-2009 PCR (RESP) DETECTED(A) NOT DETECTED 10/04/2024 3:19 AM [facility] INFLUENZA B PCR (RESP) NOT DETECTED NOT DETECTED 10/04/2024 3:19 AM [facility] PARAINFLUENZA 1 PCR (RESP) NOT DETECTED NOT DETECTED 10/04/2024 3:19 AM [facility] PARAINFLUENZA 2 PCR (RESP) NOT DETECTED NOT DETECTED 10/04/2024 3:19 AM [facility] PARAINFLUENZA 3 PCR (RESP) NOT DETECTED NOT DETECTED 10/04/2024 3:19 AM [facility] PARAINFLUENZA 4 PCR (RESP) NOT DETECTED NOT DETECTED 10/04/2024 3:19 AM MANAGER PRODUCT MARKETING [facility] RSV PCR (RESP) NOT DETECTED NOT DETECTED 10/04/2024 3:19 AM MANAGER PRODUCT MARKETING [facility] B PARAPERTUSIS PCR (RESP) NOT DETECTED NOT DETECTED 10/04/2024 3:19 AM MANAGER PRODUCT MARKETING [facility] BORDETELLA PERTUSSIS PCR (RESP) NOT DETECTED NOT DETECTED 10/04/2024 3:19 AM MANAGER PRODUCT MARKETING [facility] CHLAMYDOPHILA PNEUMONIAE PCR (RESP) NOT DETECTED NOT DETECTED 10/04/2024 3:19 AM MANAGER PRODUCT MARKETING [facility] MYCOPLASMA PNEUMONIAE PCR (RESP) NOT DETECTED NOT DETECTED 10/04/2024 3:19 AM MANAGER PRODUCT MARKETING [facility] CORONAVIRUS SARS COV 2 PCR (RESP) NOT DETECTED NOT DETECTED 10/04/2024 3:19 AM MANAGER PRODUCT MARKETING [facility] NASOPHARYNGEAL SWAB / Unknown 10/04/2024 1:12 AM MANAGER PRODUCT MARKETING Lilibeth Manzano DECORATOR MANNEQUIN MICROBIOLOGY - GENERAL JAI SKELTON Final Result [facility] [address] [place] [address], * (ABNORMAL) MYCOPLASMA PNEUMONIAE AB (10/04/2024 12:31 AM MANAGER PRODUCT MARKETING) M. PNEUMONIAE AB IGG 1.65(H) <=0.90 10/08/2024 5:20 PM MANAGER PRODUCT MARKETING [facility] Comment: Reference Range: <=0.90 Negative 0.91-1.09 Equivocal >=1.10 Positive A positive IgG result indicates that the patient has antibody to Mycoplasma. It does not differentiate between an active or past infection. The clinical diagnosis must be interpreted in conjunction with the clinical signs and symptoms of the patient. M. PNEUMONIAE AB IGM 25 <770 U/mL 10/08/2024 5:20 PM MANAGER PRODUCT MARKETING [facility] Comment: Reference Range: <770 U/ml Negative 770-950 [...] symptoms of the patient. Test Performed by [facility], [facility], [address] [place] [address] Cj Dallas M.D., Ph.D., Director of Laboratories , [place] [id number] 10/04/2024 12:3 1 AM MANAGER PRODUCT MARKETING Lilibeth Manzano APRN LABORATORY Final Resul t Performing Organization Address City/[facility]/ZIP Co de Phone Number [facility] [address] , [place] [phone] * CULTURE BACTERIA, BLOOD (10/03/2024 11:10 PM MANAGER PRODUCT MARKETING) SPEC DESCRIPTION BLOOD 10/03/2024 4:16 PM MANAGER PRODUCT MARKETING [facility] SPECIAL REQUESTS NO SPECIAL REQUEST 10/03/2024 4:16 PM MANAGER PRODUCT MARKETING [facility] CULTURE RESULT NO GROWTH 5 DAYS 10/08/2024 10:45 AM MANAGER PRODUCT MARKETING [facility] BLOOD SPECIMEN OBTAINED FOR BLOOD CULTURE / Unknown 10/03/2024 11:10 PM MANAGER PRODUCT MARKETING 10/03/2024 11:15 PM MANAGER PRODUCT MARKETING Sarthak Hendrickson MD MICROBIOLOGY - GENERAL ORDERABL ES Final Result [facility] [address] [place] [address], [place] [phone] * ECG 12 lead (10/03/2024 4:49 PM MANAGER PRODUCT MARKETING) 10/03/2024 4:49 PM MANAGER PRODUCT MARKETING Narrative [facility] - 10/04/2024 5:10 AM MANAGER PRODUCT MARKETING [place] Test Date: 2024-10-03 Pat Name: HERIBERTO MITCHELLTON Department: 41 Room: EXAM10 Gender: Female 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 : 1940 Requested By: BRANDI ACEVES Order Number: [id number] Reading MD: Danny Bee Measurements Intervals [place] Rate: 114 P: 95 IA: 169 QRS: 40 QRSD: 119 T: 138 QT: 322 QTc: 445 Interpretive Statements SINUS TACHYCARDIA WITH FREQUENT VENTRICULAR PREMATURE COMPLEXES Baseline artifact limits interpretation [employer] MARKET[employer] Procedure Note Danny Bee MD - 10/04/[address] [place] Test Date: 2024-10-03 Pat Name: HERIBERTO TEJEDA Department: 41 Room: EXAM10 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: Female 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 : 1940 Requested By: BRANDI ACEVES Order Number: [id number] Reading MD: Danny Bee Measurements Intervals [place] Rate: 114 P: 95 IA: 169 QRS: 40 QRSD: 119 T: 138 QT: 322 QTc: 445 Interpretive Statements SINUS TACHYCARDIA WITH FREQUENT VENTRICULAR PREMATURE COMPLEXES Baseline artifact limits interpretation GER PRODUCT MARKETING us Brandi CANELA ECG ORDERABLES Final Resu lt [facility] * CORONAVIRUS (COVID 19) (10/03/2024 4:27 PM MANAGER PRODUCT MARKETING) CORONAVIRUS SARS COV 2 RNA NEGATIVE NEGATIVE 10/03/2024 5:30 PM MANAGER PRODUCT MARKETING [facility] Comment: NEGATIVE RESULTS DO NOT [...] SARS-COV-2. SPECIMEN TYPE NASAL 10/03/2024 4:32 PM MANAGER PRODUCT MARKETING [facility] NASAL STRUCTURE / Unknown 10/03/2024 4:27 PM MANAGER PRODUCT MARKETING Sarthak Hendrickson MD MICROBIOLOGY - GENERAL ORDERABL ES Final Result [facility] [address] [place] [address], * INFLUENZA A & B (10/03/2024 4:27 PM MANAGER PRODUCT MARKETING) SPECIMEN TYPE NASAL 10/03/2024 4:58 PM MANAGER PRODUCT MARKETING [facility] INFLUENZA A NEGATIVE NEGATIVE 10/03/2024 5:30 PM MANAGER PRODUCT MARKETING [facility] INFLUENZA B NEGATIVE NEGATIVE 10/03/2024 5:30 PM MANAGER PRODUCT MARKETING [facility] Comment: Interpretation: Negative for Influenza [...] NASOPHARYNGEAL SWAB / Unknown 10/03/2024 4:27 PM MANAGER PRODUCT MARKETING Sarthak Hendrickson MD MICROBIOLOGY - GENERAL ORDERABL ES Final Result Performing Organization Address [facility] Co de Phone Number [facility] [address] [place] [phone], * PROCALCITONIN (PCT) (10/03/2024 4:15 PM MANAGER PRODUCT MARKETING) Procalcitonin <0.05 0.00 - 0.49 NG/ML 10/03/2024 5:53 PM MANAGER PRODUCT MARKETING [facility] 10/03/2024 4:15 PM MANAGER PRODUCT MARKETING Brandi CANELA LABORATORY Final Resu lt Performing Organization Address [facility] Co de Phone Number [facility] [address] [place] [phone], * TSH W/REFLEX (10/03/2024 4:15 PM MANAGER PRODUCT MARKETING) TSH 0.922 0.358 - 3.74 uIU/ML 10/04/2024 1:37 AM MANAGER PRODUCT MARKETING [facility] Comment: HIGH DOSES OF BIOTIN MAY INTERFERE WITH THIS TEST RESULT. CORRELATION TO CLINICAL HISTORY AND PRESENTATION RECOMMENDED. FREE T4 NOT INDICATED 10/03/2024 4:15 PM MANAGER PRODUCT MARKETING Lilibeth Manzano APRN LABORATORY Final Resul t Performing Organization Address [facility] Co de Phone Number [facility] [address] [place] [address], * (ABNORMAL) PRO-BRAIN NATRIURETIC PEPTIDE (10/03/2024 4:15 PM MANAGER PRODUCT MARKETING) PRO-B TYPE NATRIURETIC PEPTIDE 1,925(H) <450 PG/ML 10/03/2024 5:26 PM MANAGER PRODUCT MARKETING [facility] Comment: CUT POINTS ESTABLISHED BY [...] 72% FOR ACUTE CHF. 10/03/2024 4:15 PM MANAGER PRODUCT MARKETING Brandi Aceves PA LABORATORY Final Resu lt [facility] [address] [place] [address], [place] [phone] * STREP PNEUMO AG URINE (10/03/2024 4:15 PM MANAGER PRODUCT MARKETING) S. PNEUMONIAE URINARY AG NEGATIVE NEGATIVE 10/04/2024 12:04 PM MANAGER PRODUCT MARKETING [facility] URINE SPECIMEN OBTAINED BY CLEAN CATCH PROCEDURE / Unknown 10/03/2024 4:15 PM MANAGER PRODUCT MARKETING Lilibeth Manzano APRN MICROBIOLOGY - GENERAL JAI SKELTON Final Result [facility] [address] [place] [address], [place] [phone] * LEGIONELLA AG URINE (10/03/2024 4:15 PM MANAGER PRODUCT MARKETING) LEGIONELLA ANTIGEN (URINE) NEGATIVE NEGATIVE 10/04/2024 12:04 PM MANAGER PRODUCT MARKETING [facility] URINE SPECIMEN / Unknown 10/03/2024 4:15 PM MANAGER PRODUCT MARKETING Lilibeth Samuels Jose Juan BRIGHT MICROBIOLOGY - GENERAL ORDMario SKELTON Final Result [facility] [address] [place] [address], [place] [phone] * URINALYSIS, AUTO, COMPLETE (10/03/2024 4:15 PM MANAGER PRODUCT MARKETING) SPECIMEN TYPE URINE CLEAN CATCH 10/03/2024 4:19 PM MANAGER PRODUCT MARKETING [facility] COLOR (U) LIGHT YELLOW 10/03/2024 5:13 PM MANAGER PRODUCT MARKETING [facility] TRANSPARENCY CLEAR 10/03/2024 5:13 PM MANAGER PRODUCT MARKETING [facility] SPECIFIC GRAVITY (U) 1.009 1.001 - 1.030 10/03/2024 5:13 PM MANAGER PRODUCT MARKETING [facility] U PH 6.5 5.0 - 9.0 10/03/2024 5:13 PM [facility] LEUKOCYTES (U) NEGATIVE NEGATIVE 10/03/2024 5:13 PM [facility] NITRITES NEGATIVE NEGATIVE 10/03/2024 5:13 PM [facility] PROTEIN RANDOM (U) NEGATIVE <30 MG/DL 10/03/2024 5:13 PM [facility] GLUCOSE (U) NORMAL NORMAL MG/DL 10/03/2024 5:13 PM [facility] KETONES MG/DL (U) NEGATIVE NEGATIVE MG/DL 10/03/2024 5:13 PM [facility] UROBILINOGEN NORMAL NORMAL MG/DL 10/03/2024 5:13 PM [facility] BILIRUBIN (U) NEGATIVE NEGATIVE MG/DL 10/03/2024 5:13 PM MANAGER PRODUCT MARKETING [facility] BLOOD (U) NEGATIVE NEGATIVE 10/03/2024 5:13 PM MANAGER PRODUCT MARKETING [facility] WBC/HPF 2 <6 /HPF 10/03/2024 5:13 PM MANAGER PRODUCT MARKETING [facility] RBC/HPF 2 <6 /HPF 10/03/2024 5:13 PM MANAGER PRODUCT MARKETING [facility] URINE SPECIMEN OBTAINED BY CLEAN CATCH PROCEDURE / Unknown 10/03/2024 4:15 PM MANAGER PRODUCT MARKETING Brandi CANELA URINE ORDERABLES Final Res ult Performing Organization Address City/[facility]/ZIP Co de Phone Number [facility] [address] [place] [address], [place] [phone] * TROPONIN, QUANT (10/03/2024 4:15 PM MANAGER PRODUCT MARKETING) TROPONIN I HIGH SENSITIVITY 44 <54 ng/L 10/03/2024 5:26 PM MANAGER PRODUCT MARKETING [facility] Comment: HIGH DOSES OF BIOTIN, TROPONIN-SPECIFIC AUTOANTIBODIES, AND ANTIBODY THERAPY CONTAINING HAMA MAY INTERFERE WITH THIS TEST RESULT. CORRELATION TO CLINICAL HISTORY AND PRESENTATION RECOMMENDED. 10/03/2024 4:15 PM MANAGER PRODUCT MARKETING Brandi CANELA LABORATORY Final Resu lt Performing Organization Address City/[facility]/ZIP Co de Phone Number [facility] [address] [place] [address], [place] [phone] * PHOSPHORUS, INORGANIC PHOSPHATE (10/03/2024 4:15 PM MANAGER PRODUCT MARKETING) PHOSPHORUS 3.4 2.5 - 4.9 MG/DL 10/04/2024 1:37 AM MANAGER PRODUCT MARKETING [facility] 10/03/2024 4:15 PM MANAGER PRODUCT MARKETING Lilibeth Manzano DECORATOR MANNEQUIN LABORATORY Final Resul t [facility] [address] [place] [address], [place] [phone] * MAGNESIUM (10/03/2024 4:15 PM MANAGER PRODUCT MARKETING) Pathologist [facility] MAGNESIUM 2.3 1.8 - 2.4 MG/DL 10/04/2024 1:37 AM MANAGER PRODUCT MARKETING [facility] Comment:SLIGHT HEMOLYSIS, RE SULT MAY BE AFFECTED. 10/03/2024 4:15 PM MANAGER PRODUCT MARKETING Lilibeth Samuels Jose Juan DECORATOR MANNEQUIN LABORATORY Final Resul t Performing Organization Address [facility] Co de Phone Number [facility] [address] [place] [address], [place] [phone] * (ABNORMAL) ARTERIAL BLOOD GAS (10/03/2024 4:05 PM MANAGER PRODUCT MARKETING) PH ARTERIAL 7.49(H) 7.35 - 7.45 10/03/2024 4:15 PM MANAGER PRODUCT MARKETING [facility] PCO2 33.0(L) 35.0 - 45.0 MMHG 10/03/2024 4:15 PM MANAGER PRODUCT MARKETING [facility] PO2 90.0 83.0 - 108.0 MMHG 10/03/2024 4:15 PM MANAGER PRODUCT MARKETING [facility] TOTAL CO2 ARTERIAL 26.1(H) 19.0 - 24.0 MMOL/L 10/03/2024 4:15 PM MANAGER PRODUCT MARKETING [facility] BASE EXCESS 2.2 0.0 - 3.0 MMOL/L 10/03/2024 4:15 PM MANAGER PRODUCT MARKETING [facility] O2 SATURATION 98 94.0 - 98.0 % 10/03/2024 4:15 PM MANAGER PRODUCT MARKETING [facility] BICARB ARTERIAL 25.1 21.0 - 28.0 MMOL/L 10/03/2024 4:15 PM MANAGER PRODUCT MARKETING [facility] CHANDAN TEST CHANDAN TEST PERFORMED 10/03/2024 4:12 PM MANAGER PRODUCT MARKETING [facility] O2 ADMIN ARTERIAL 28 10/03/2024 4:12 PM MANAGER PRODUCT MARKETING [facility] DRAW SITE ARTERIAL RT RADIAL 10/03/2024 4:12 PM MANAGER PRODUCT MARKETING [facility] 10/03/2024 4:05 PM MANAGER PRODUCT MARKETING us Brandi CANELA LABORATORY Final Resu lt [facility] [address] [place] [address], * XR CHEST PA+LAT (10/03/2024 3:05 PM MANAGER PRODUCT MARKETING) Anatomical Region Laterality Modality Chest Radiographic Angie ging 10/03/2024 3:12 PM MANAGER PRODUCT MARKETING Impressions 10/03/2024 3:17 PM MANAGER PRODUCT MARKETING =====IMPRESSION:===== 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 Superimposed acute/active airway infection/inflammation is not excluded. Ordered By: BRANDI ACEVES Interpreted By: Sulema Pinto MD, 10/03/2024 3:12 PM Narrative 10/03/2024 3:17 PM MANAGER PRODUCT MARKETING [facility] [address] [place], [place] [address] Examination: Chest x-ray 2 view Exam date/time: [...] Procedure Note Sulema Pinto MD - 10/03/[address] [address] Examination: Chest x-ray 2 view Exam date/time: [...] lt * Home Sleep Study - WatchPat ([id number]/[id number]) (09/22/2024 3:00 PM MANAGER PRODUCT MARKETING) Narrative [facility] - 09/22/2024 3:00 PM MANAGER PRODUCT MARKETING Diego Freeman MD 09/30/2024 10:28 AM Patient Information First Name: HERIBERTO Last Name: ILEANA ID: [id number] Date: 1940 Age: 84 Gender: Female BMI: [...] (Events per Minute): 4.8 Rev. Printed on:09/30/2024 09/22/2024,[id number],1940,Female *The automatic analysis events or stages have been edited. 539 Page 1 of 2 Sleep Study Report SUMMARY/DIAGNOSIS 1.) Mild Obstructive Sleep Apnea. 2.) Premature beats were noted and minimal atrial fibrillation was suspected during this study. 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 Raw data reviewed and electronically signed by: Diego Freeman on 09/30/2024 10:26:04 AM at 4:26:10PM, [facility] Naeem Grissom MD SLEEP CENTER ORDERABLES Fin al Result [facility] [address] [place] [address], from Last 3 Months Insurance MEDICARE Advance Directives * Full Code (Latest Code Status on File) Date Activated Date Inactivated Comments 10/09/2024 3:14 PM * Full Code Date Activated Date Inactivated Comments 10/04/2024 12:11 AM 10/08/2024 6:04 PM Care Teams Roll Forming Machine Set Up Operator Relationship Specialty Start Date End Date Pawan Echevarria MD [address] [facility] [address] [address] PCP - General FAMILY PRACTICE 04/17/23
--- OUTSIDE RECORDS SUMMARY | 2024-12-03 19:23 | XMS_ITS | Clinical Summary ---
Author Organization [facility] Negra Priestolga Address [address] [place] [address] Care Team Providers Care Artificial Intelligence Specialist Name Role Phone Pawan Echevarria MD Primary Care Provider [phone] Allergies Active Allergy Reactions Criticality Noted Date [...] 1 Puff by inhalation daily. 1 Active HYDROcodone-aceta minophen (NORCO) 5-325 mg tablet Take 1 Tablet by mouth every 6 hours as needed for Pain. 5 Active famotidine (PEPCID) 40 mg tablet Take 40 mg by mouth daily at bedtime. 5 Active mirtazapine (REMERON) 7.5 mg tablet Take 7.5 mg by mouth daily at bedtime. 5 Active metoprolol succinate (TOPROL XL) 25 mg Extended Release 24 hour tablet Take 25 mg by mouth daily. 4 06/23/20 25 Active ondansetron (ZOFRAN) 4 mg Tablet Take 4 mg by mouth 1 time daily as needed for Nausea. 5 Active Active Problems No known active problems Encounters Date Type Department Care Team Description 12/01/2024 1:15 PM CDT Office Visit [facility] Oncology and Hematology - [place] [address] [place] [address] Warren Vaughn MD Abnormal mammogram of left breast (Primary Dx); Malignant neoplasm of left breast in female, estrogen receptor positive, unspecified site of breast ([facility]) 11/04/2024 External Device Data [facility] ABSTRACTION Provider, Abstract 10/09/2024 External Device Data [facility] Provider, Abstract 10/08/2024 External Device Data [facility] AB[facility]CTION Provider, Abstract 10/07/2024 External Device Data [facility] AB[facility]CTION Provider, Abstract 10/03/2024 Orders Only [facility] [address] [place] [address] Warren Vaughn MD 10/02/2024 Orders Only [facility]ology - [place] [address] [place] [address] Warren Vaughn MD from Last 3 Months [...] Smoking Tobacco: Former Cigarettes Smokeless Tobacco: Never Tobacco Cessation:Counseling Given: Not Answered Alcohol Use Standard Drinks/Week Comments Never 0 (1 standard drink = 0.6 oz pur e alcohol) Comments Unknown Sex and Gender Information Value Date Recorded Sex Assigned at Not on file Legal Sex Female 7:51 AM CDT Gender Identity Not on file Sexual Orientation Not on file Last Filed Vital Signs Vital Sign Reading Time Taken Comments Blood Pressure 134/86 12/01/2024 1:22 PM CDT Pulse 82 12/01/2024 1:22 PM CDT Temperature 36.8 C (98.3 F) 12/01/2024 1:22 PM CDT Respiratory Rate 15 12/01/2024 1:22 PM CDT Oxygen Saturation 90% 12/01/2024 1:22 PM CDT Inhaled Oxygen Concentration - - Weight 60.5 kg (133 lb 6.4 oz) 12/01/2024 1:22 P M CDT Height 162.6 cm (5' 4 ) 11/29/2023 3:03 PM CDT Body Mass Index 22.9 11/29/2023 3:03 PM CDT Plan of Treatment Upcoming Encounters Date Type Department Care Team (Late st Contact Info) Description 12/15/2024 4:00 PM CDT Telephone Check Up [facility]ology - [place] [address] [facility] [address] [place] [address] Warren Vaughn MD [address] [facility] [address] [place] [address] Health Maintenance Due Date Last Done Comments DTAP/TDAP/TD VACCINES (1 - Tdap) 02/14/1960 PNEUMOCOCCAL VACCINE 50+ YEA RS (1 of 2 - PCV) 02/14/1960 Traditional Medicare (ACO) A nnual Wellness Visit 02/14/1960 ZOSTER VACCINE (1 of 2) 1991 RSV VACCINE (60+ or ) (1 - 1-dose 75+ series) 02/14/2016 INFLUENZA VACCINE (#1) 2024 COVID-19 Vaccine ( season) 05/18/202401/2021, 10/26/2020 OSTEOPOROSIS SCREENING Completed 06/02/2024 Procedures Procedure Name Priority Date/Time Associated Diagnosis Comments CANCER ANTIGEN 15-3 Routine 10/03/2024 2 :11 PM GLASS CARRIER CBC WITH DIFFERENTIAL Routine 10/01/2024 3:09 PM GLASS CARRIER COMPREHENSIVE METABOLIC PANEL Routine 10/01/2024 11:45 AM GLASS CARRIER from Last 3 Months Results * CANCER ANTIGEN 15-3 (10/03/2024 2:11 PM GLASS CARRIER) Blood us Warren Vaughn MD CHEMISTRY ORDERABLES Final Resu lt * CBC WITH DIFFERENTIAL (10/01/2024 3:09 PM GLASS CARRIER) Blood us Warren Vaughn MD HEMATOLOGY ORDERABLES Final Res ult * COMPREHENSIVE METABOLIC PANEL (10/01/2024 11:45 AM GLASS CARRIER) Blood us Warren Vaughn MD CHEMISTRY ORDERABLES Final Resu lt from Last 3 Months Insurance MEDICARE PART A AND B [employer] Care Teams Artificial Intelligence Specialist Relationship Specialty Start Date End Date Pawan Echevarria MD [address] [place] [phone] PCP - General Family Practice 11/29/23
--- NOTE | 2024-12-03 19:41 | ED_ITS ---
HPI - General Adult General Chief complaint: Shortness of Breath/Dyspnea <Aditya Qiu MD - Last Filed: 12/06/24 07:03> Stated complaint: dyspnea, hypoxia <Aditya Qiu MD - Last Filed: 12/06/24 07:03> Time Seen by Provider: 12/03/24 19:11 <Aditya Qiu MD - Last Filed: 12/06/24 07:03> History of Present Illness HPI narrative: 84-year-old female history of CHF presented emergency department for evaluation for worsening shortness of breath. Patient states he has had worsening exertional shortness of breath for the last few weeks but it has acutely worsened over the last few days. Patient does have increased work of breathing and has been complaining of increased chest wall pain and back pain due to the increased work of breathing. Patient did have an outpatient CT scan of her thoracic spine. Patient is normally on 1 L of oxygen with ambulation only but has been requiring 4 L of oxygen at rest. Patient does use albuterol nebulizers at home but states this has not been helping significantly with her shortness of breath. Patient has been taking more medications for pain control. <Aditya Qiu MD - Last Filed: 12/06/24 07:03> Related Data Home medications: Home Medications ?Medication ?Instructions ?Recorded ?Confirmed ?Last Taken ?Type umeclidinium 62.5 mcg-vilanterol 1 inh inhalation DAILY 08/24/21 12/04/24 12/03/24 History 25 mcg/actuation powdr for inhalation (Anoro Ellipta) metoprolol succinate 25 mg 25 mg PO QHS 09/28/23 12/04/24 12/03/24 History tablet,extended release 24 hr calcium 500 mg 2 tablet PO DAILY 01/21/24 12/04/24 12/03/24 History (carb,gluconate)-magnesium 250 mg (gluc,oxide) tablet (Calcium Magnesium) magnesium 200 mg tablet 200 mg PO DAILY 01/21/24 12/04/24 12/03/24 History multivitamin (Daily Multi-Vitamin 1 tablet PO DAILY 01/21/24 12/04/24 12/03/24 History tablet) sodium chloride 3 % for 25 ml inhalation Q4-6H PRN 03/27/24 12/04/24 Unknown History nebulization sob/wheezing albuterol sulfate 2.5 mg/3 mL 2.5 mg continuous nebulization Q6H 07/31/24 12/04/24 12/03/24 History (0.083 %) solution for nebulization PRN sob/wheezing Alkadophilus 2 cap PO DAILY 08/24/24 12/04/24 12/03/24 History cholecalciferol (vitamin D3) 75 1,000 unit PO DAILY 08/24/24 12/04/24 12/03/24 History mcg (3,000 unit) tablet empagliflozin 10 mg tablet 10 mg PO DAILY 10/16/24 12/04/24 12/03/24 History (Jardiance) sertraline 25 mg tablet 50 mg PO DAILY 10/16/24 12/04/24 12/03/24 History sacubitril 24 mg-valsartan 26 mg 1 tablet PO Q12H 11/27/24 12/04/24 12/03/24 History tablet (Entresto) diclofenac potassium 50 mg tablet 50 mg PO Q12H PRN pain 12/04/24 12/04/24 12/03/24 History flecainide 100 mg tablet 100 mg PO Q12H 12/04/24 12/04/24 Unknown History <Aditya Qiu MD - Last Filed: 12/06/24 07:03> Allergies/adverse reactions: Allergies Allergy/AdvReac Type Severity Reaction Status Date / Time dog dander Allergy Unknown Asthma Verified 12/02/24 15:03 levofloxacin AdvReac Intermediate Hallucinati Verified 12/02/24 15:03 ng <Aditya Qiu MD - Last Filed: 12/06/24 07:03> Review of Systems 2 Review of Systems: All systems reviewed & are unremarkable except as noted in HPI and below <Aditya Qiu MD - Last Filed: 12/06/24 07:03> [facility] Past Medical History Medical History: Medical History Invasive ductal carcinoma of left breast Chronic hypoxic respiratory failure, on home oxygen therapy Essential hypertension COPD with emphysema Mitral valve regurgitation [id number] on echocardiogram January 2020 Combined systolic and diastolic cardiac dysfunction Nonischemic cardiomyopathy With echocardiogram 2019 demonstrated EF of 35-40%, grade 1 diastolic dysfunction, global hypokinesis of left ventricle, mild left atrial enlargement, [id number] mitral valve regurgitation, mild tricuspid regurgitation managed by Dr. Mela Beauchamp Achilles tendinitis of left lower extremity Bronchiectasis Mycobacterium avium infection Lumbar radiculopathy, right <Aditya Qiu MD - Last Filed: 12/06/24 07:03> Surgical History Surgical History: Surgical History History of lumpectomy of left breast (01/2024) History of sentinel lymph node dissection (01/2024) History of cardiac catheterization (2019) Normal coronary arteries <Aditya Qiu MD - Last Filed: 12/06/24 07:03> Family History Family History: Family History Sibling Family history of tuberculosis Mother Diabetes mellitus <Aditya Qiu MD - Last Filed: 12/06/24 07:03> Social History Social History: Social History Social History: 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 She has 2 daughters who live locally. She had a brief smoking history when she was young. She rarely drinks alcohol in minimal amounts. She denies history of illicit substance use. Code status: Full code Surrogate decision maker: Berenice Chang (daughter) Smoking packs per day: 0.5 Smoking cigarettes per day: 10.0 Years smoked: 10 Smoking pack-years: 5.00 Smoking status: Former smoker Tobacco type: cigarettes Second hand tobacco smoke exposure: Yes Alcohol intake: never Drinks per week: 0 Substance use: never Substance use type: does not use Do You Feel Safe in your Home?: Yes Lack of Transportation: No Lack of Food: Never True Current Housing: I Have Housing Concerned About Future Housing: No Difficulty Paying Gas/Electric Bills: No Difficulty Paying for Meds: No Currently Unemployed: No Education: Bachelor's Degree Difficulty w/ Childcare or Family Care: No Living arrangements: alone Spiritual care concerns: No <Aditya Qiu MD - Last Filed: 12/06/24 07:03> Exam 2 Narrative: APPEARANCE: Well appearing, no pain, no distress, well-nourished. HEAD: normocephalic, atraumatic. EYES: PERRLA/EOMI, conjunctivae clear. NOSE: Normal no drainage EARS:TMS clear with good light reflex. THROAT: Pharynx clear, no exudate. NECK: Supple. No adenopathy, no masses. RESPIRATORY: Increased work of breathing CARDIOVASCULAR: Regular rate and rhythm without murmurs rubs or gallops. ABDOMINAL: Soft, nontender, nondistended, normal bowel sounds MUSCULOSKELETAL: Moves all extremities. Strength/ROM intact, No edema, No calf tenderness. NEURO: Alert. Cranial nerves II through XII intact. Good gait. Good coordination SKIN: Warm, dry. Normal Color <Aditya Qiu MD - Last Filed: 12/06/24 07:03> Course Course Emergency Course: Patient and family updated on workup <Buffy Vogt PA-C - Last Filed: 12/04/24 01:40> Consultations Consultation #1: Spoke with hospitalist about patient and workup who accepts admission < Buffy Vogt PA-C - Last Filed: 12/04/24 01:40> Date: 12/04/24 <Buffy Vogt PA-C - Last Filed: 12/04/24 01:40> Vital Signs Vital signs: Vital Signs Pulse Rate 106 H 12/03/24 18:32 Respiratory Rate 20 12/03/24 18:32 Blood Pressure 166/106 H 12/03/24 18:32 Pulse Oximetry 97 12/03/24 18:32 Oxygen Delivery Nasal Cannula 12/03/24 18:32 Oxygen Flow Rate 4 12/03/24 18:32 Temperature 96.8 F L 12/06/24 04:00 Pulse Rate 78 12/06/24 04:00 Respiratory Rate 18 12/06/24 04:00 Blood Pressure 115/69 12/06/24 04:00 Pulse Oximetry 90 12/06/24 04:00 Oxygen Delivery Nasal Cannula 12/05/24 20:36 Oxygen Flow Rate 2 12/05/24 20:36 Fraction of Inspired Oxygen 28 12/05/24 09:08 <Aditya Qiu MD - Last Filed: 12/06/24 07:03> Vital Signs Pulse Rate 106 H 12/03/24 18:32 Respiratory Rate 20 12/03/24 18:32 Blood Pressure 166/106 H 12/03/24 18:32 Pulse Oximetry 97 12/03/24 18:32 Oxygen Delivery Nasal Cannula 12/03/24 18:32 Oxygen Flow Rate 4 12/03/24 18:32 Temperature 96.8 F L 12/06/24 04:00 Pulse Rate 78 12/06/24 04:00 Respiratory Rate 18 12/06/24 04:00 Blood Pressure 115/69 12/06/24 04:00 Pulse Oximetry 90 12/06/24 04:00 Oxygen Delivery Nasal Cannula 12/05/24 20:36 Oxygen Flow Rate 2 12/05/24 20:36 Fraction of Inspired Oxygen 28 12/05/24 09:08 <Buffy Vogt PA-C - Last Filed: 12/04/24 01:40> Medical Decision Making MDM Narrative Medical decision making narrative: 84-year-old female present to the emergency department for evaluation for increased work of breathing, increased O2 requirement and increased back pain and chest wall pain. Patient is currently afebrile but does have a leukocytosis of 12.7 hemoglobin of 13.4. Patient's CMP is similar to her baseline. Chest x- ray does show nodular opacification of the right hilum, which may be vascular in origin but an interval change from prior for which noncontrast enhanced CT examination of the chest is suggested. Patient will most likely require hospitalization due to her significant increased O2 requirement. Patient's oxygenation did not improve with extended nebulized albuterol treatment. ProBNP is pending. At time of sign-out CT thoracic spine and CT chest are pending. <Aditya Qiu MD - Last Filed: 12/06/24 07:03> 84-year-old female present to the emergency department for evaluation for increased work of breathing, increased O2 requirement and increased back pain and chest wall pain. Patient is currently afebrile but does have a leukocytosis of 12.7 hemoglobin of 13.4. Patient's CMP is similar to her baseline. Chest x- ray does show nodular opacification of the right hilum, which may be vascular in origin but an interval change from prior for which noncontrast enhanced CT examination of the chest is suggested. Patient will most likely require hospitalization due to her significant increased O2 requirement. Patient's oxygenation did not improve with extended nebulized albuterol treatment. ProBNP is pending. At time of sign-out CT thoracic spine and CT chest are pending. CT chest in thoracic spine shows T6 vertebral body fracture. Possibly pathologic fracture. Mediastinal lymphadenopathy. Patient does report history of metastatic breast cancer. Bronchiectasis. Patient and family updated on workup. Spoke with hospitalist about patient and workup who accepts admission < Buffy Vogt PA-C - Last Filed: 12/04/24 01:40> Vital Signs Vital Signs: Vital Signs Pulse Rate 106 H 12/03/24 18:32 Respiratory Rate 20 12/03/24 18:32 Blood Pressure 166/106 H 12/03/24 18:32 Pulse Oximetry 97 12/03/24 18:32 Oxygen Delivery Nasal Cannula 12/03/24 18:32 Oxygen Flow Rate 4 12/03/24 18:32 Temperature 96.8 F L 12/06/24 04:00 Pulse Rate 78 12/06/24 04:00 Respiratory Rate 18 12/06/24 04:00 Blood Pressure 115/69 12/06/24 04:00 Pulse Oximetry 90 12/06/24 04:00 Oxygen Delivery Nasal Cannula 12/05/24 20:36 Oxygen Flow Rate 2 12/05/24 20:36 Fraction of Inspired Oxygen 28 12/05/24 09:08 <Aditya Qiu MD - Last Filed: 12/06/24 07:03> Vital Signs Pulse Rate 106 H 12/03/24 18:32 Respiratory Rate 20 12/03/24 18:32 Blood Pressure 166/106 H 12/03/24 18:32 Pulse Oximetry 97 12/03/24 18:32 Oxygen Delivery Nasal Cannula 12/03/24 18:32 Oxygen Flow Rate 4 12/03/24 18:32 Temperature 96.8 F L 12/06/24 04:00 Pulse Rate 78 12/06/24 04:00 Respiratory Rate 18 12/06/24 04:00 Blood Pressure 115/69 12/06/24 04:00 Pulse Oximetry 90 12/06/24 04:00 Oxygen Delivery Nasal Cannula 12/05/24 20:36 Oxygen Flow Rate 2 12/05/24 20:36 Fraction of Inspired Oxygen 28 12/05/24 09:08 <Buffy Vogt PA-C - Last Filed: 12/04/24 01:40> Lab Data Lab results reviewed: Yes I reviewed the patient's lab results. <Buffy Vogt PA-C - Last Filed: 12/04/24 01:40> Result diagrams: 12/05/24 06:02 12/05/24 06:02 <Aditya iQu MD - Last Filed: 12/06/24 07:03> Labs: Lab Results 12/03/24 12/03/24 12/04/24 Range/Units 19:01 22:56 08:07 WBC 12.7 H (4.5-10.0) K/mm3 RBC 4.57 (4.2-5.4) M/mm3 Hgb 13.4 (12.0-15.0) g/dL Hct 41.4 (37.0-47.0) % MCV 90.6 (80-100) fl MCH 29.3 (26-34) pg MCHC 32.4 (32-36) g/dl RDW 14.3 (11.5-14.5) % Plt Count 271 (150-375) k/mm3 MPV 10.2 (7.4-10.4) fl Immature Gran % (Auto) 0.6 H (0-0.5) % Neut % (Auto) 79.7 H (45.5-73.1) % Lymph % (Auto) 11.9 L (18.3-44.2) % [place] % (Auto) 7.0 (2.6-8.5) % Eos % (Auto) 0.6 (0-4.4) % Baso % (Auto) 0.2 (0.2-1.2) % Lymph # (Auto) 1.50 (0.9-3.2) K/mm3 [place] # (Auto) 0.9 H (0.1-0.6) K/mm3 Eos # (Auto) 0.1 (0-0.3) K/mm3 Baso # (Auto) 0.0 (0.0-0.1) K/mm3 Abs Immat Gran (auto) 0.07 H (0.00-0.031) K/mm3 Absolute Neuts (auto) 10.1 H (1.3-6.7) K/mm3 Absolute Nucleated RBC 0.000 (0.0-0.012) K/mm3 Nucleated RBC % 0.0 (0.0-0.2) % Sodium 137 (137-145) mmol/L Potassium 4.4 (3.4-5.0) mmol/L Chloride 100 (98-107) mmol/L Carbon Dioxide 29 (22-30) mmol/L Anion Gap 8 (4-12) mmol/L BUN 24 H (7-17) mg/dL Creatinine 0.64 L (0.7-1.0) mg/dL Estim Creat Clear Calc Not Reportable Estimated GFR > 60 (59 - ) Glucose 145 H (65-110) mg/dL POC Capillary Glucose 104 (65-105) mg/dl Calcium 9.1 (8.4-10.2) mg/dL Total Bilirubin 0.3 (0.2-1.3) mg/dL AST 32 (14-36) U/L ALT 27 (6-35) U/L Alkaline Phosphatase 94 (38-126) U/L NT-Pro-B Natriuret Pep 4210 H (19.9-100) pg/mL Total Protein 7.0 (6.3-8.2) g/dL Albumin 4.2 (3.5-5.1) g/dL Influenza A (RT-PCR) Negative (Negative) Influenza B (RT-PCR) Negative (Negative) RSV (RT-PCR) Negative (Negative) SARS-CoV-2 RNA (RT-PCR) Negative (Negative) 12/04/24 Range/Units 11:31 WBC (4.5-10.0) K/mm3 RBC (4.2-5.4) M/mm3 Hgb (12.0-15.0) g/dL Hct (37.0-47.0) % MCV (80-100) fl MCH (26-34) pg MCHC (32-36) g/dl RDW (11.5-14.5) % Plt Count (150-375) k/mm3 MPV (7.4-10.4) fl Immature Gran % (Auto) (0-0.5) % Neut % (Auto) (45.5-73.1) % Lymph % (Auto) (18.3-44.2) % [place] % (Auto) (2.6-8.5) % Eos % (Auto) (0-4.4) % Baso % (Auto) (0.2-1.2) % Lymph # (Auto) (0.9-3.2) K/mm3 [place] # (Auto) (0.1-0.6) K/mm3 Eos # (Auto) (0-0.3) K/mm3 Baso # (Auto) (0.0-0.1) K/mm3 Abs Immat Gran (auto) (0.00-0.031) K/mm3 Absolute Neuts (auto) (1.3-6.7) K/mm3 Absolute Nucleated RBC (0.0-0.012) K/mm3 Nucleated RBC % (0.0-0.2) % Sodium (137-145) mmol/L Potassium (3.4-5.0) mmol/L Chloride (98-107) mmol/L Carbon Dioxide (22-30) mmol/L Anion Gap (4-12) mmol/L BUN (7-17) mg/dL Creatinine (0.7-1.0) mg/dL Estim Creat Clear Calc Estimated GFR (59 - ) Glucose (65-110) mg/dL POC Capillary Glucose 115 H (65-105) mg/dl Calcium (8.4-10.2) mg/dL Total Bilirubin (0.2-1.3) mg/dL AST (14-36) U/L ALT (6-35) U/L Alkaline Phosphatase (38-126) U/L NT-Pro-B Natriuret Pep (19.9-100) pg/mL Total Protein (6.3-8.2) g/dL Albumin (3.5-5.1) g/dL Influenza A (RT-PCR) (Negative) Influenza B (RT-PCR) (Negative) RSV (RT-PCR) (Negative) SARS-CoV-2 RNA (RT-PCR) (Negative) <Aditya Qiu MD - Last Filed: 12/06/24 07:03> Lab Results 12/03/24 12/03/24 12/04/24 Range/Units 19:01 22:56 08:07 WBC 12.7 H (4.5-10.0) K/mm3 RBC 4.57 (4.2-5.4) M/mm3 Hgb 13.4 (12.0-15.0) g/dL Hct 41.4 (37.0-47.0) % MCV 90.6 (80-100) fl MCH 29.3 (26-34) pg MCHC 32.4 (32-36) g/dl RDW 14.3 (11.5-14.5) % Plt Count 271 (150-375) k/mm3 MPV 10.2 (7.4-10.4) fl Immature Gran % (Auto) 0.6 H (0-0.5) % Neut % (Auto) 79.7 H (45.5-73.1) % Lymph % (Auto) 11.9 L (18.3-44.2) % [place] % (Auto) 7.0 (2.6-8.5) % Eos % (Auto) 0.6 (0-4.4) % Baso % (Auto) 0.2 (0.2-1.2) % Lymph # (Auto) 1.50 (0.9-3.2) K/mm3 [place] # (Auto) 0.9 H (0.1-0.6) K/mm3 Eos # (Auto) 0.1 (0-0.3) K/mm3 Baso # (Auto) 0.0 (0.0-0.1) K/mm3 Abs Immat Gran (auto) 0.07 H (0.00-0.031) K/mm3 Absolute Neuts (auto) 10.1 H (1.3-6.7) K/mm3 Absolute Nucleated RBC 0.000 (0.0-0.012) K/mm3 Nucleated RBC % 0.0 (0.0-0.2) % Sodium 137 (137-145) mmol/L Potassium 4.4 (3.4-5.0) mmol/L Chloride 100 (98-107) mmol/L Carbon Dioxide 29 (22-30) mmol/L Anion Gap 8 (4-12) mmol/L BUN 24 H (7-17) mg/dL Creatinine 0.64 L (0.7-1.0) mg/dL Estim Creat Clear Calc Not Reportable Estimated GFR > 60 (59 - ) Glucose 145 H (65-110) mg/dL POC Capillary Glucose 104 (65-105) mg/dl Calcium 9.1 (8.4-10.2) mg/dL Total Bilirubin 0.3 (0.2-1.3) mg/dL AST 32 (14-36) U/L ALT 27 (6-35) U/L Alkaline Phosphatase 94 (38-126) U/L NT-Pro-B Natriuret Pep 4210 H (19.9-100) pg/mL Total Protein 7.0 (6.3-8.2) g/dL Albumin 4.2 (3.5-5.1) g/dL Influenza A (RT-PCR) Negative (Negative) Influenza B (RT-PCR) Negative (Negative) RSV (RT-PCR) Negative (Negative) SARS-CoV-2 RNA (RT-PCR) Negative (Negative) 12/04/24 Range/Units 11:31 WBC (4.5-10.0) K/mm3 RBC (4.2-5.4) M/mm3 Hgb (12.0-15.0) g/dL Hct (37.0-47.0) % MCV (80-100) fl MCH (26-34) pg MCHC (32-36) g/dl RDW (11.5-14.5) % Plt Count (150-375) k/mm3 MPV (7.4-10.4) fl Immature Gran % (Auto) (0-0.5) % Neut % (Auto) (45.5-73.1) % Lymph % (Auto) (18.3-44.2) % [place] % (Auto) (2.6-8.5) % Eos % (Auto) (0-4.4) % Baso % (Auto) (0.2-1.2) % Lymph # (Auto) (0.9-3.2) K/mm3 [place] # (Auto) (0.1-0.6) K/mm3 Eos # (Auto) (0-0.3) K/mm3 Baso # (Auto) (0.0-0.1) K/mm3 Abs Immat Gran (auto) (0.00-0.031) K/mm3 Absolute Neuts (auto) (1.3-6.7) K/mm3 Absolute Nucleated RBC (0.0-0.012) K/mm3 Nucleated RBC % (0.0-0.2) % Sodium (137-145) mmol/L Potassium (3.4-5.0) mmol/L Chloride (98-107) mmol/L Carbon Dioxide (22-30) mmol/L Anion Gap (4-12) mmol/L BUN (7-17) mg/dL Creatinine (0.7-1.0) mg/dL Estim Creat Clear Calc Estimated GFR (59 - ) Glucose (65-110) mg/dL POC Capillary Glucose 115 H (65-105) mg/dl Calcium (8.4-10.2) mg/dL Total Bilirubin (0.2-1.3) mg/dL AST (14-36) U/L ALT (6-35) U/L Alkaline Phosphatase (38-126) U/L NT-Pro-B Natriuret Pep (19.9-100) pg/mL Total Protein (6.3-8.2) g/dL Albumin (3.5-5.1) g/dL Influenza A (RT-PCR) (Negative) Influenza B (RT-PCR) (Negative) RSV (RT-PCR) (Negative) SARS-CoV-2 RNA (RT-PCR) (Negative) <Buffy Vogt PA-C - Last Filed: 12/04/24 01:40> Imaging Data Radiologist's impression: ITS Impressions Chest X-Ray 12/03/24 19:30 IMPRESSION: Nodular opacification of the right hilum, which may be vascular in origin but an interval change from prior for which noncontrast enhanced CT examination of the chest is suggested. Chest CT 12/03/24 22:15 IMPRESSION: Redemonstration of the T6 vertebral body fracture which also demonstrates increased attenuation for which a pathologic fracture cannot be excluded. Interval development of the mediastinal lymphadenopathy, corresponding to the abnormality seen on plain film radiograph. Cylindrical and varicose bronchiectasis is also noted. Thoracic Spine CT 12/03/24 22:15 IMPRESSION: Redemonstration of the T6 vertebral body fracture which also demonstrates increased attenuation for which a pathologic fracture cannot be excluded. Interval development of the mediastinal lymphadenopathy, corresponding to the abnormality seen on plain film radiograph. Cylindrical and varicose bronchiectasis is also noted. <JUAN Medrano Last Filed: 12/04/24 01:40> Critical Care Time Critical Care Time Critical Care Time: No <JUAN Medrano Last Filed: 12/04/24 01:40> Discharge Plan Discharge Clinical Impression: Intractable pain Acute on chronic respiratory failure Qualifiers: Respiratory failure complication: hypoxia Qualified Code(s): J96.21 - Acute and chronic respiratory failure with hypoxia Fracture of T6 vertebra Qualifiers: Encounter type: subsequent encounter Fracture type: closed Fracture morphology: wedge compression Fracture healing: with routine healing Qualified Code(s): S 22.050D - Wedge compression fracture of T5-T6 vertebra, subsequent encounter for fracture with routine healing <Aditya Qiu MD - Last Filed: 12/06/24 07:03> Patient Disposition: Still a Patient <Aditya Qiu MD - Last Filed: 12/06/24 07:03> Condition: Stable <Aditya Qiu MD - Last Filed: 12/06/24 07:03>
[2024-12-03] MEDS: MORPHINE SULFATE (*CRX) 2 MG/ML INJ IV PUSH ×2 (20:37→22:53)
[2024-12-03] MEDS: ALBUTEROL SULFATE NEB 2.5 MG/3 ML INH 5 MG INHALATION (20:50)
[2024-12-03 23:01] LABS: NT Pro B Type Natriuretic Pept 4210 pg/mL (19.9-100)
[2024-12-03 23:36] LABS: Influenza A QL RT-PCR Negative (Negative); Influenza B QL RT-PCR Negative (Negative); RSV RNA, RT-PCR Negative (Negative); SARS-CoV-2 RNA PCR Negative (Negative)
[2024-12-04] VITALS (16 sets, daily range): BP systolic 104–175; BP diastolic 54–116; PULSE 53–136; RESP 18–30; TEMP 36.2–36.9; O2SAT 90–100; BMI 22.9
--- NOTE | 2024-12-04 00:26 | ECG_ITS ---
Test Date: 2024-12-04 00:26:40 Measurements Intervals [place] Rate: 86 P: 94 OK: 186 QRS: 9 QRSD: 141 T: 134 QT: 413 QTc: 495 Interpretive Statements SINUS RHYTHM WITH FREQUENT VENTRICULAR PREMATURE COMPLEXES INTRAVENTRICULAR CONDUCTION DELAY Electronically Signed On 12-04-2024 13:18:52 CDT by Ian Castillo M.D.
[2024-12-04] MEDS: HYDROcodone/acetaminophen (*CRX) 5-325 MG TABLET 1 TAB PO ×2 (01:16→09:05)
--- NOTE | 2024-12-04 02:40 | ADMGEN ---
This patient, Nora Tejeda, was admitted to [facility] Surg Room 332-01. Patient/family oriented to hospital policies and general routines including ID bracelet, bed and alarms, visiting hours, pain management, procedures, bathroom and other care routines, personal items, smoking policy, room service/diet, and visiting hours. Information on how to activate the Rapid Response Team has been discussed. Patient/Family are encouraged to report perceived risks to care and to ask questions if they do not understand what they are told or what they should do. Report received from CARMEN Mcgarry in ED.
[2024-12-04] MEDS: CEFEPIME 2 GM/NS 50 ML 2 GM/50 ML BAG IVPB (03:59)
[2024-12-04] MEDS: AZITHROMYCIN 500 MG/NS 250 ML 500 MG/250 ML BAG 250 MG IVPB (04:37)
[2024-12-04] MEDS: MORPHINE SULFATE (*CRX) 2 MG/ML INJ IV PUSH ×2 (05:57→11:24)
[2024-12-04 08:12] LABS: Glucose Point of Care 104 mg/dl (65-105)
[2024-12-04 11:34] LABS: Glucose Point of Care 115 mg/dl (65-105)
[2024-12-04] MEDS: methylPREDNISolone SOD SUCC 125 MG VIAL 40 MG IV PUSH ×2 (15:24→21:44)
[2024-12-04] MEDS: ALPRAZolam (*CRX) 0.5 MG TABLET PO (15:24)
[2024-12-04] MEDS: LIDOCAINE 5% PATCH 1 PATCH TRANSDERM (15:24)
[2024-12-04] MEDS: ALBUTEROL SULFATE NEB 2.5 MG/3 ML INH INHALATION ×2 (15:25→22:15)
[2024-12-04] MEDS: HYDROmorphone HCL INJ (*CRX) 1 MG/ML SYR 0.5 MG IV PUSH (15:28)
[2024-12-04 15:51] LABS: Alveolar/Arterial O2 Gradient 22.3 mmHg; Fractional Inspired Oxygen 21 %; HCO3 ABG 28.6 mEq/l (22.0-26.0); PCO2 ABG 58.7 mmHg (35.0-45.0); PO2 ABG 57.1 mmHg (80.0-100.0); PO2 FiO2 Ratio Arterial Blood 2.72 %; Total Hemoglobin 14.2 g/dL (12.0-18.0); pH ABG 7.306 (7.350-7.450)
[2024-12-04 15:52] LABS: Oxygen Saturation ABG 86.4 % (95.0-100.0)
[2024-12-04 15:53] LABS: Device ROOM AIR; Modified Allen's Test Pass; Oxyhemoglobin 85.4 % THb (90.0-100.0); Site Drawn LEFT RADIAL
[2024-12-04 16:16] LABS: Glucose Point of Care 174 mg/dl (65-105)
--- NOTE | 2024-12-04 16:25 | P.HP_ITS ---
H&P: HPI History of Present Illness Date/Time: 12/04/24 16:25 Chief Complaint: SOb and back pain Narrative: 84-year-old female history of CHF, COPD with chronic respiratory failure on supplemental oxygen, breast ca, HTN, Mycobacterium avium infection who presented to the ER on account of SOB and back pain. Patient noted she was recently diagnosed of recurrent breast ca and she is awaiting PET/CT scan, however about 3 weeks ago she started having back pain noted poor pain control which has affected her breathing and in margarita last 3 days she stared having worsening SOB as she noted her back pain does not allow her take deep breaths. Denies any chest pain, vomiting, abd pain, diarrhea, dysuria or focal wekaness. ER eval notable for MN 106, RR 20, BP 166/106 , saturating 97% on 4 liters oxygen. labs notable for WBC 12.7, NTproBNP 4210, RSV, Flu and Covid negative. CT chest and thorax showed T6 compression and interval development of mediastinal lymphadenopathy. Patient was admitted for further evaluation and care. Review of Systems Review of Systems: All other systems were reviewed and negative except as noted in the HPI above [facility] Past Medical History Medical History Invasive ductal carcinoma of left breast Chronic hypoxic respiratory failure, on home oxygen therapy Essential hypertension COPD with emphysema Mitral valve regurgitation [id number] on echocardiogram January 2020 Combined systolic and diastolic cardiac dysfunction Nonischemic cardiomyopathy With echocardiogram 2019 demonstrated EF of 35-40%, grade 1 diastolic dysfunction, global hypokinesis of left ventricle, mild left atrial enlargement, [id number] mitral valve regurgitation, mild tricuspid regurgitation managed by Dr. 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 She has 2 daughters who live locally. She had a brief smoking history when she was young. She rarely drinks alcohol in minimal amounts. She denies history of illicit substance use. Code status: Full code Surrogate decision maker: Berenice Chang (daughter) Smoking packs per day: 0.5 Smoking cigarettes per day: 10.0 Years smoked: 10 Smoking pack-years: 5.00 Smoking status: Former smoker Tobacco type: cigarettes Second hand tobacco smoke exposure: Yes Alcohol intake: never Drinks per week: 0 Substance use: never Substance use type: does not use Do You Feel Safe in your Home?: Yes Lack of Transportation: No Lack of Food: Never True Current Housing: I Have Housing Concerned About Future Housing: No Difficulty Paying Gas/Electric Bills: No Difficulty Paying for Meds: No Currently Unemployed: No Education: Bachelor's Degree Difficulty w/ Childcare or Family Care: No Living arrangements: alone Spiritual care concerns: No Meds Home Medications and Allergies Home Medications ?Medication ?Instructions ?Recorded ?Confirmed ?Type umeclidinium 62.5 mcg-vilanterol 1 inh inhalation DAILY 08/24/21 12/04/24 History 25 mcg/actuation powdr for inhalation (Anoro Ellipta) albuterol sulfate 90 mcg/actuation 2 inh inhalation Q4H PRN shortness 03/06/22 12/04/24 Rx aerosol inhaler (Ventolin HFA) of breath or wheezing #6.7 grams metoprolol succinate 25 mg 25 mg PO QHS 09/28/23 12/04/24 History tablet,extended release 24 hr calcium 500 mg 2 tablet PO DAILY 01/21/24 12/04/24 History (carb,gluconate)-magnesium 250 mg (gluc,oxide) tablet (Calcium Magnesium) magnesium 200 mg tablet 200 mg PO DAILY 01/21/24 12/04/24 History multivitamin (Daily Multi-Vitamin 1 tablet PO DAILY 01/21/24 12/04/24 History tablet) sodium chloride 3 % for 25 ml inhalation Q4-6H PRN 03/27/24 12/04/24 History nebulization sob/wheezing albuterol sulfate 2.5 mg/3 mL 2.5 mg continuous nebulization Q6H 11/14/24 03/20/25 History (0.083 %) solution for nebulization PRN sob/wheezing ondansetron HCl 4 mg tablet 4 mg PO Q6H PRN nausea and 08/13/24 12/04/24 Rx vomiting #30 tabs Alkadophilus 2 cap PO DAILY 08/24/24 12/04/24 History cholecalciferol (vitamin D3) 75 1,000 unit PO DAILY 08/24/24 12/04/24 History mcg (3,000 unit) tablet alprazolam 0.25 mg tablet 0.25 mg PO TID PRN anxiety #90 tabs 10/16/24 12/04/24 Rx empagliflozin 10 mg tablet 10 mg PO DAILY 10/16/24 12/04/24 History (Jardiance) famotidine 40 mg tablet 40 mg PO QHS #90 tabs 10/16/24 12/04/24 Rx mirtazapine 7.5 mg tablet 7.5 mg PO QHS #90 tabs 10/16/24 12/04/24 Rx sertraline 25 mg tablet 50 mg PO HS 10/16/24 12/04/24 History sacubitril 24 mg-valsartan 26 mg 1 tablet PO Q12H 11/27/24 12/04/24 History tablet (Entresto) Medium compression socks #1 ea 12/02/24 12/04/24 Rx doxycycline monohydrate 100 mg 100 mg PO BID #20 caps 12/02/24 12/04/24 Rx capsule gabapentin 300 mg capsule 300 mg PO BID #60 caps 12/02/24 12/04/24 Rx diclofenac potassium 50 mg tablet 50 mg PO Q12H PRN pain 12/04/24 12/04/24 History flecainide 100 mg tablet 100 mg PO Q12H 12/04/24 12/04/24 History Allergies Allergy/AdvReac Type Severity Reaction Status Date / Time dog dander Allergy Unknown Asthma Verified 12/02/24 15:03 levofloxacin AdvReac Intermediate Hallucinati Verified 12/02/24 15:03 ng Vital Signs Vital Signs - 24 hr 12/03/24 18:32 12/03/24 18:48 12/03/24 19:09 Temperature 98.3 F Pulse Rate 106 H 97 Respiratory Rate 20 24 H Blood Pressure 166/106 H 144/96 H Pulse Oximetry 97 98 98 Oxygen Delivery Nasal Cannula Nasal Cannula Oxygen Flow Rate 4 3 12/03/24 21:01 12/03/24 21:02 12/03/24 21:05 Temperature Pulse Rate 96 Respiratory Rate 23 H Blood Pressure 135/98 H Pulse Oximetry 100 100 100 Oxygen Delivery Nasal Cannula Nasal Cannula Oxygen Flow Rate 2 2 12/03/24 21:05 12/03/24 21:05 12/03/24 22:35 Temperature Pulse Rate 98 97 95 Respiratory Rate 24 H 24 H 27 H Blood Pressure 136/84 Pulse Oximetry 97 Oxygen Delivery Oxygen Flow Rate 12/04/24 00:14 12/04/24 02:30 12/04/24 02:36 Temperature 98.1 F Pulse Rate 94 89 94 Respiratory Rate 22 H 20 22 H Blood Pressure 108/54 L 125/78 108/54 L Pulse Oximetry 92 95 92 Oxygen Delivery Oxygen Flow Rate 12/04/24 03:30 12/04/24 04:00 12/04/24 08:00 Temperature 97.1 F L 98.4 F Pulse Rate 87 83 Respiratory Rate 20 18 Blood Pressure 123/65 138/70 Pulse Oximetry 95 97 96 Oxygen Delivery Nasal Cannula Oxygen Flow Rate 2 12/04/24 08:00 12/04/24 12:00 12/04/24 15:27 Temperature 98.4 F Pulse Rate 106 H 133 H Respiratory Rate 20 24 H Blood Pressure 175/100 H Pulse Oximetry 93 95 Oxygen Delivery Nasal Cannula Oxygen Flow Rate 1 12/04/24 15:35 12/04/24 15:53 Temperature 97.4 F L Pulse Rate 136 H 53 L Respiratory Rate 24 H 22 H Blood Pressure 166/116 H Pulse Oximetry 90 Oxygen Delivery Oxygen Flow Rate Exam Narrative: General: alert and comfortable Eyes: EOMI, PERRLA ENNT External ears normal, Neck is supple, no masses, Respiratory systems: bilateral wheezing Cardiovascular S1, S2, normal rhythm, no murmur, rub, or gallop; no thrill or palpable murmurs on palpation. Gastrointestinal: soft, non-tender, and non-distended abdomen with no masses; BS present Skin: no rash, lesions, ulcerations, subcutaneous nodules or induration Musculoskeletal: no abnormality and no tenderness, normal ROM Neurologic: Alert and oriented x3, non focal Mental Status Exam: normal affect H&P: Results Labs Labs: Short CBC 12/03/24 Range/Units 19:01 WBC 12.7 H (4.5-10.0) K/mm3 Hgb 13.4 (12.0-15.0) g/dL Hct 41.4 (37.0-47.0) % Plt Count 271 (150-375) k/mm3 BMP 12/03/24 19:01 Sodium 137 Potassium 4.4 Chloride 100 Carbon Dioxide 29 BUN 24 H Creatinine 0.64 L Glucose 145 H Calcium 9.1 Liver Function 12/03/24 Range/Units 19:01 Total Bilirubin 0.3 (0.2-1.3) mg/dL AST 32 (14-36) U/L ALT 27 (6-35) U/L Alkaline Phosphatase 94 (38-126) U/L Albumin 4.2 (3.5-5.1) g/dL Assessment and Plan Assessment and plan (1) Acute on chronic respiratory failure: Qualifiers: Respiratory failure complication: hypoxia Qualified Code(s): J96.21 - Acute and chronic respiratory failure with hypoxia Code(s): J96.20 - Acute and chronic respiratory failure, unspecified whether with hypoxia or hypercapnia Status: Acute (2) Recurrent malignant neoplasm of left breast: Code(s): C50.912 - Malignant neoplasm of unspecified site of left female breast Status: Acute Plan Acute on chronic hypercapnic respiratory failure On 1 liter oxygen at baseline abg showed 7.3/58/57/28 On BiPAP IV steroid, bronchodilators and monitor COPD exacerbation continue above care Recurrent breast ca patient awaiting PET/CT outpatient Continue outpatient follow up T6 compression fracture ?Metastatic breast ca disease continue PRN pain control Nonischemic cardiomyopathy Continue home meds HTN titrate home meds with clinical course DVT Prophylaxis on Sq Lovenox
[2024-12-04] MEDS: HYDROcodone/acetaminophen (*CRX) 10-325 MG TABLET 1 TAB PO (18:36)
[2024-12-04 22:03] LABS: Glucose Point of Care 167 mg/dl (65-105)
[2024-12-04] MEDS: BUDESONIDE RESPULE NEB 0.5 MG/2 ML AMP INHALATION (22:15)
[2024-12-04] MEDS: FLUTICASONE/SALMETEROL 45-21 MCG INHALER 1 PUFF 2 PUFF INHALATION (22:15)
[2024-12-04] MEDS: FLECAINIDE ACETATE 100 MG TABLET PO (22:48)
[2024-12-04] MEDS: SACUBITRIL/VALSARTAN 24-26 MG TABLET 1 TAB PO (22:49)
[2024-12-04] MEDS: MIRTAZAPINE 7.5 MG TABLET PO (22:49)
[2024-12-04] MEDS: FAMOTIDINE 20 MG TABLET 40 MG PO (22:49)
[2024-12-04] MEDS: METOPROLOL SUCCINATE EXT REL 25 MG TABCR PO (22:49)
[2024-12-04 23:03] LABS: Alveolar/Arterial O2 Gradient 123.8 mmHg; Base Excess ABG -1.7 mEq/l (+/-2.0); Fractional Inspired Oxygen 45 %; HCO3 ABG 25.1 mEq/l (22.0-26.0); Oxygen Content ABG 18.7 %vol (16.0-22.0); Oxygen Saturation ABG 98.5 % (95.0-100.0); Oxyhemoglobin 97.2 % THb (90.0-100.0); PCO2 ABG 51.2 mmHg (35.0-45.0); PO2 ABG 138.8 mmHg (80.0-100.0); PO2 FiO2 Ratio Arterial Blood 3.08 %; Total Hemoglobin 13.5 g/dL (12.0-18.0); pH ABG 7.309 (7.350-7.450)
[2024-12-04 23:50] LABS: Device BIPAP; Modified Allen's Test Pass; Site Drawn RIGHT RADIAL
[2024-12-04 23:52] LABS: Expiratory Pressure 6 cmH2O; Inspiratory Pressure 12 cmH2O
[2024-12-05] VITALS (15 sets, daily range): BP systolic 106–141; BP diastolic 48–73; PULSE 64–90; RESP 13–22; TEMP 36.4–37.2; O2SAT 94–100
[2024-12-05] MEDS: HYDROcodone/acetaminophen (*CRX) 10-325 MG TABLET 1 TAB PO ×4 (00:23→22:16)
[2024-12-05] MEDS: ALBUTEROL SULFATE NEB 2.5 MG/3 ML INH INHALATION ×4 (02:55→22:10)
[2024-12-05] MEDS: methylPREDNISolone SOD SUCC 125 MG VIAL 40 MG IV PUSH (05:19)
[2024-12-05 06:09] LABS: Hematocrit 39.3 % (37.0-47.0); Hemoglobin 11.9 g/dL (12.0-15.0); Immature Granulocyte Absolute 0.04 K/mm3 (0.00-0.031); Immature Granulocyte Percent A 0.6 % (0-0.5); Lymphocytes Absolute Auto 0.47 K/mm3 (0.9-3.2); Lymphocytes Percent Auto 7.4 % (18.3-44.2); Mean Corpuscular HGB Conc 30.3 g/dl (32-36); Mean Corpuscular Hemoglobin 28.4 pg (26-34); Mean Corpuscular Volume 93.8 fl (80-100); Mean Platelet Volume 9.8 fl (7.4-10.4); Monocytes Absolute Auto 0.2 K/mm3 (0.1-0.6); Monocytes Percent Auto 2.7 % (2.6-8.5); Neutrophils Absolute Auto 5.7 K/mm3 (1.3-6.7); Neutrophils Percent Auto 89.3 % (45.5-73.1); Platelet Count Result 236 k/mm3 (150-375); Red Blood Count 4.19 M/mm3 (4.2-5.4); White Blood Count 6.4 K/mm3 (4.5-10.0)
[2024-12-05 06:19] LABS: Alanine Aminotransferase 24 U/L (6-35); Albumin Level 3.7 g/dL (3.5-5.1); Alkaline Phosphatase 57 U/L (38-126); Anion Gap 9 mmol/L (4-12); Aspartate Amino Transferase 23 U/L (14-36); Bilirubin,Total 0.4 mg/dL (0.2-1.3); Blood Urea Nitrogen 29 mg/dL (7-17); Calcium 8.7 mg/dL (8.4-10.2); Carbon Dioxide 28 mmol/L (22-30); Chloride 95 mmol/L (98-107); Estimated CRCL calculation 43 ml/min; Estimated Glomerular Filt Rate > 60; Glucose 163 mg/dL (65-110); Potassium 4.8 mmol/L (3.4-5.0); Sodium 132 mmol/L (137-145)
[2024-12-05 06:21] LABS: Lactic Acid Reflex 1.5 mmol/L (0.7-2.0)
[2024-12-05 08:19] LABS: Glucose Point of Care 156 mg/dl (65-105)
[2024-12-05] MEDS: BUDESONIDE RESPULE NEB 0.5 MG/2 ML AMP INHALATION ×2 (09:08→22:10)
[2024-12-05] MEDS: FLECAINIDE ACETATE 100 MG TABLET PO ×2 (09:10→20:44)
[2024-12-05] MEDS: LIDOCAINE 5% PATCH 1 PATCH TRANSDERM (09:12)
[2024-12-05] MEDS: SACUBITRIL/VALSARTAN 24-26 MG TABLET 1 TAB PO ×2 (09:12→20:44)
[2024-12-05] MEDS: SERTRALINE HCL 50 MG TABLET PO (09:14)
[2024-12-05] MEDS: EMPAGLIFLOZIN 10 MG TABLET PO (09:14)
[2024-12-05] MEDS: UMECLIDINIUM/VILANTEROL 62.5-25 MCG ELLIPTA 1 PUFF INHALATION (09:23)
--- NOTE | 2024-12-05 09:46 | PM.IMPN ---
Progress Note: A&P Assessment and Plan (1) Acute on chronic respiratory failure: Qualifiers: Respiratory failure complication: hypoxia Qualified Code(s): J96.21 - Acute and chronic respiratory failure with hypoxia Code(s): J96.20 - Acute and chronic respiratory failure, unspecified whether with hypoxia or hypercapnia Status: Acute (2) Recurrent malignant neoplasm of left breast: Code(s): C50.912 - Malignant neoplasm of unspecified site of left female breast Status: Acute Plan Acute on chronic hypercapnic respiratory failure On 1 liter oxygen at baseline abg showed 7.3/58/57/28 was on BiPAP IV steroid, bronchodilators and monitor now on 2L Patient is feeling better today, decrease methylprednisolone to 40 mg b.i.d. from 3 times a day May changed to oral prednisone tomorrow if continue to improve COPD exacerbation continue above care Recurrent breast ca patient awaiting PET/CT outpatient Continue outpatient follow up T6 compression fracture Metastatic breast ca disease continue PRN pain control Nonischemic cardiomyopathy Continue home meds HTN titrate home meds with clinical course DVT Prophylaxis on Sq Lovenox May discharge patient in 1-2 days Subjective Date/time seen: 12/05/24 09:46 Interval history: I saw examined the patient today. Patient feels better today, still has cough with scant phlegm. Dyspnea is improving, exercise tolerance increased. Exam Narrative: GENERAL: Pleasant, in no acute distress. Well-nourished. - EYES: EOMI. Anicteric. - HENT: Moist mucous membranes. - LUNGS: Coarse breath sound bilaterally - CARDIOVASCULAR: Regular rate and rhythm. No murmur. No JVD. - ABDOMEN: Soft, non-tender and non-distended. No palpable masses. - EXTREMITIES: No edema. Peripheral pulses 2+. Non-tender. - NEUROLOGIC: No focal neurological deficits. CN II-XII grossly intact. - PSYCHIATRIC: Awake, Alert and oriented x 3. Appropriate mood and affect. - SKIN: No rashes or lesions. Warm. - LYMPH: No cervical lymphadenopathy. Objective Data Vital Signs Vital Signs: Vital Signs - 24 hr 12/04/24 12:00 12/04/24 15:27 12/04/24 15:35 Temperature 98.4 F Pulse Rate 106 H 133 H 136 H Respiratory Rate 20 24 H 24 H Blood Pressure 175/100 H Pulse Oximetry 95 Oxygen Delivery Oxygen Flow Rate Fraction of Inspired Oxygen 12/04/24 15:53 12/04/24 16:42 12/04/24 20:00 Temperature 97.4 F L 97.5 F L Pulse Rate 53 L 87 77 Respiratory Rate 22 H 23 H 18 Blood Pressure 166/116 H 104/58 L Pulse Oximetry 90 91 100 Oxygen Delivery BiPAP Oxygen Flow Rate Fraction of Inspired Oxygen 12/04/24 21:30 12/04/24 22:15 12/04/24 22:15 Temperature Pulse Rate 73 74 74 Respiratory Rate 18 22 H 22 H Blood Pressure Pulse Oximetry 100 97 97 Oxygen Delivery BiPAP BiPAP BiPAP Oxygen Flow Rate Fraction of Inspired Oxygen 45 12/04/24 22:15 12/04/24 22:48 12/04/24 22:49 Temperature Pulse Rate 74 74 74 Respiratory Rate 30 H Blood Pressure Pulse Oximetry Oxygen Delivery Oxygen Flow Rate Fraction of Inspired Oxygen 12/05/24 00:00 12/05/24 02:55 12/05/24 02:55 Temperature 97.5 F L Pulse Rate 73 64 64 Respiratory Rate 18 13 13 Blood Pressure 114/68 Pulse Oximetry 100 96 Oxygen Delivery BiPAP Oxygen Flow Rate Fraction of Inspired Oxygen 12/05/24 04:00 12/05/24 08:00 12/05/24 09:10 Temperature 97.9 F 98.2 F Pulse Rate 66 70 70 Respiratory Rate 18 18 Blood Pressure 106/48 L 119/59 L Pulse Oximetry 99 96 Oxygen Delivery Oxygen Flow Rate Fraction of Inspired Oxygen 12/05/24 09:25 Temperature Pulse Rate Respiratory Rate Blood Pressure Pulse Oximetry 96 Oxygen Delivery Nasal Cannula Oxygen Flow Rate 2 Fraction of Inspired Oxygen Intake/Output Intake/Output: Intake & Output 12/02/24 12/03/24 12/04/24 12/05/24 23:59 23:59 23:59 23:59 Intake Total 930 540 Balance 930 540 Meds/Results Medications: Active Medications Generic Name Dose Route Start Last Admin Trade Name Freq PRN Reason Stop Dose Admin Acetaminophen 650 mg 12/04/24 05:09 Acetaminophen 325 Mg Tablet PO Q6H PRN Mild Pain (1-3) or Fever Hydrocodone Bitart/Acetaminophen 1 tab 12/04/24 05:09 12/04/24 09:05 Hydrocodone/Acetaminophen (*Crx) 5-325 Mg Tablet PO 1 tab Q6H PRN Administration Pain Rated 4-6 Hydrocodone Bitart/Acetaminophen 1 tab 12/04/24 15:13 12/05/24 06:45 Hydrocodone/Acetaminophen (*Crx) 10-325 Mg Tablet PO 1 tab Q4H PRN Administration Pain Rated 7-10 Albuterol 2.5 mg 12/04/24 15:04 12/05/24 09:08 Albuterol Sulfate Neb 2.5 Mg/3 Ml Inh INHALATION 2.5 mg Q4HRT PRN Administration Shortness Of Breath Alprazolam 0.5 mg 12/04/24 15:10 12/04/24 15:24 Alprazolam (*Crx) 0.5 Mg Tablet PO 0.5 mg TID PRN Administration Anxiety Alprazolam 0.25 mg 12/04/24 22:12 Alprazolam (*Crx) 0.25 Mg Tablet PO TID PRN anxiety Budesonide 0.5 mg 12/04/24 20:00 12/05/24 09:08 Budesonide Respule Neb 0.5 Mg/2 Ml Amp INHALATION 0.5 mg Q12HRT ANA Administration Empagliflozin 10 mg 12/05/24 09:00 12/05/24 09:14 Empagliflozin 10 Mg Tablet PO 10 mg DAILY ANA Administration Enoxaparin Sodium 40 mg 12/05/24 09:00 Enoxaparin 40 Mg/0.4 Ml Syringe SUB-Q DAILY [facility] Famotidine 40 mg 12/04/24 22:25 12/04/24 22:49 Famotidine 20 Mg Tablet PO 40 mg QHS ANA Administration Flecainide Acetate 100 mg 12/04/24 22:15 12/05/24 09:10 Flecainide Acetate 100 Mg Tablet PO 100 mg Q12HR ANA Administration Gabapentin 300 mg 12/04/24 22:25 12/05/24 09:12 Gabapentin 300 Mg Capsule PO Not Given BID ANA Hydromorphone HCl 0.5 mg 12/04/24 15:13 12/04/24 15:28 Hydromorphone Hcl Inj (*Crx) 1 Mg/Ml Syr IV PUSH 0.5 mg Q3H PRN Administration Pain Rated 7-10 Lidocaine 1 patch 12/04/24 15:15 12/05/24 09:12 Lidocaine 5% Patch TRANSDERM 1 patch DAILY ANA Administration Methylprednisolone Sodium Succinate 40 mg 12/04/24 15:15 12/05/24 05:19 Methylprednisolone Sod Succ 125 Mg Vial IV PUSH 40 mg Q8HR ANA Administration Metoprolol Succinate 25 mg 12/04/24 22:20 12/04/24 22:49 Metoprolol Succinate Ext Rel 25 Mg Tabcr PO 25 mg QHS ANA Administration Mirtazapine 7.5 mg 12/04/24 22:20 12/04/24 22:49 Mirtazapine 7.5 Mg Tablet PO 7.5 mg QHS ANA Administration Sacubitril/Valsartan 1 tab 12/04/24 22:15 12/05/24 09:12 Sacubitril/Valsartan 24-26 Mg Tablet PO 1 tab Q12HR ANA Administration Fluticasone/Salmeterol 2 puff 12/04/24 20:00 12/05/24 09:22 Fluticasone/Salmeterol 45-21 Mcg Inhaler 1 Puff INHALATION Not Given Q12HRT ANA Sertraline HCl 50 mg 12/05/24 09:00 12/05/24 09:14 Sertraline Hcl 50 Mg Tablet PO 50 mg QAM ANA Administration Umeclidinium/Vilanterol 1 puff 12/05/24 09:00 12/05/24 09:23 Umeclidinium/Vilanterol 62.5-25 Mcg Ellipta INHALATION 1 puff DAILY ANA Administration Radiology Results: ITS Impressions Chest X-Ray 12/03/24 19:30 IMPRESSION: Nodular opacification of the right hilum, which may be vascular in origin but an interval change from prior for which noncontrast enhanced CT examination of the chest is suggested. Chest CT 12/03/24 22:15 IMPRESSION: Redemonstration of the T6 vertebral body fracture which also demonstrates increased attenuation for which a pathologic fracture cannot be excluded. Interval development of the mediastinal lymphadenopathy, corresponding to the abnormality seen on plain film radiograph. Cylindrical and varicose bronchiectasis is also noted. Thoracic Spine CT 12/03/24 22:15 IMPRESSION: Redemonstration of the T6 vertebral body fracture which also demonstrates increased attenuation for which a pathologic fracture cannot be excluded. Interval development of the mediastinal lymphadenopathy, corresponding to the abnormality seen on plain film radiograph. Cylindrical and varicose bronchiectasis is also noted. Labs Labs: Laboratory Results - last 24 hr 0312/04/24 12/04/24 11:31 15:48 16:13 WBC RBC Hgb Hct MCV MCH MCHC RDW Plt Count MPV Immature Gran % (Auto) Neut % (Auto) Lymph % (Auto) [place] % (Auto) Eos % (Auto) Baso % (Auto) Lymph # (Auto) [place] # (Auto) Eos # (Auto) Baso # (Auto) Abs Immat Gran (auto) Absolute Neuts (auto) Absolute Nucleated RBC Nucleated RBC % Puncture Site Left radial ABG pH 7.306 L ABG pCO2 58.7 H ABG pO2 57.1 L ABG PO2/FiO2 Ratio 2.72 ABG HCO3 28.6 H ABG O2 Saturation 86.4 L* ABG O2 Content 17.0 ABG Base Excess 1.0 A-a Gradient 22.3 Oxyhemoglobin 85.4 L* Total Hemoglobin 14.2 O2 Delivery Device Room air O2 Liters/Min Not Reportable FiO2 21 Expiratory Pressure Inspiratory Pressure Sodium Potassium Chloride Carbon Dioxide Anion Gap BUN Creatinine Estim Creat Clear Calc Estimated GFR Glucose POC Capillary Glucose 115 H 174 H Lactic Acid Calcium Magnesium Total Bilirubin AST ALT Alkaline Phosphatase Total Protein Albumin 12/04/24 12/04/24 12/05/24 21:59 22:35 06:02 WBC 6.4 RBC 4.19 L Hgb 11.9 L Hct 39.3 MCV 93.8 MCH 28.4 MCHC 30.3 L RDW 14.0 Plt Count 236 MPV 9.8 Immature Gran % (Auto) 0.6 H Neut % (Auto) 89.3 H Lymph % (Auto) 7.4 L [place] % (Auto) 2.7 Eos % (Auto) 0.0 Baso % (Auto) 0.0 L Lymph # (Auto) 0.47 L [place] # (Auto) 0.2 Eos # (Auto) 0.0 Baso # (Auto) 0.0 Abs Immat Gran (auto) 0.04 H Absolute Neuts (auto) 5.7 Absolute Nucleated RBC 0.000 Nucleated RBC % 0.0 Puncture Site Right radial ABG pH 7.309 L ABG pCO2 51.2 H ABG pO2 138.8 H ABG PO2/FiO2 Ratio 3.08 ABG HCO3 25.1 ABG O2 Saturation 98.5 ABG O2 Content 18.7 ABG Base Excess -1.7 A-a Gradient 123.8 Oxyhemoglobin 97.2 Total Hemoglobin 13.5 O2 Delivery Device Bipap O2 Liters/Min FiO2 45 Expiratory Pressure 6 Inspiratory Pressure 12 Sodium 132 L Potassium 4.8 Chloride 95 L Carbon Dioxide 28 Anion Gap 9 BUN 29 H Creatinine 0.75 Estim Creat Clear Calc 43 Estimated GFR > 60 Glucose 163 H POC Capillary Glucose 167 H Lactic Acid 1.5 Calcium 8.7 Magnesium 2.0 Total Bilirubin 0.4 AST 23 ALT 24 Alkaline Phosphatase 57 Total Protein 7.0 Albumin 3.7 12/05/24 08:13 WBC RBC Hgb Hct MCV MCH MCHC RDW Plt Count MPV Immature Gran % (Auto) Neut % (Auto) Lymph % (Auto) [place] % (Auto) Eos % (Auto) Baso % (Auto) Lymph # (Auto) [place] # (Auto) Eos # (Auto) Baso # (Auto) Abs Immat Gran (auto) Absolute Neuts (auto) Absolute Nucleated RBC Nucleated RBC % Puncture Site ABG pH ABG pCO2 ABG pO2 ABG PO2/FiO2 Ratio ABG HCO3 ABG O2 Saturation ABG O2 Content ABG Base Excess A-a Gradient Oxyhemoglobin Total Hemoglobin O2 Delivery Device O2 Liters/Min FiO2 Expiratory Pressure Inspiratory Pressure Sodium Potassium Chloride Carbon Dioxide Anion Gap BUN Creatinine Estim Creat Clear Calc Estimated GFR Glucose POC Capillary Glucose 156 H Lactic Acid Calcium Magnesium Total Bilirubin AST ALT Alkaline Phosphatase Total Protein Albumin
[2024-12-05 11:35] LABS: Glucose Point of Care 303 mg/dl (65-105)
[2024-12-05] MEDS: INSULIN ASPART (*BKC) 100 UNITS/ML SUB-Q (12:17)
[2024-12-05] MEDS: ENOXAPARIN 40 MG/0.4 ML SYRINGE SUB-Q (12:19)
[2024-12-05 16:41] LABS: Glucose Point of Care 111 mg/dl (65-105)
[2024-12-05] MEDS: HYDROcodone/acetaminophen (*CRX) 5-325 MG TABLET 1 TAB PO (18:45)
[2024-12-05] MEDS: METOPROLOL SUCCINATE EXT REL 25 MG TABCR PO (20:44)
[2024-12-05] MEDS: FAMOTIDINE 20 MG TABLET 40 MG PO (20:44)
[2024-12-05] MEDS: MIRTAZAPINE 7.5 MG TABLET PO (20:45)
[2024-12-05] MEDS: methylPREDNISolone SOD SUCC 40 MG VIAL IV PUSH (20:45)
[2024-12-05] MEDS: DOCUSATE SODIUM 100 MG CAPSULE PO (20:45)
[2024-12-05 21:58] LABS: Glucose Point of Care 123 mg/dl (65-105)
[2024-12-05] MEDS: ALPRAZolam (*CRX) 0.5 MG TABLET PO (22:17)
[2024-12-05] MEDS: FLUTICASONE/SALMETEROL 45-21 MCG INHALER 1 PUFF 2 PUFF INHALATION (22:21)
[2024-12-06] VITALS (9 sets, daily range): BP systolic 103–134; BP diastolic 46–85; PULSE 63–84; RESP 17–20; TEMP 36–36.9; O2SAT 90–98
[2024-12-06 07:50] LABS: Glucose Point of Care 132 mg/dl (65-105)
[2024-12-06] MEDS: BUDESONIDE RESPULE NEB 0.5 MG/2 ML AMP INHALATION (08:26)
[2024-12-06] MEDS: FLUTICASONE/SALMETEROL 45-21 MCG INHALER 1 PUFF 2 PUFF INHALATION (08:28)
[2024-12-06] MEDS: UMECLIDINIUM/VILANTEROL 62.5-25 MCG ELLIPTA 1 PUFF INHALATION (08:28)
[2024-12-06] MEDS: HYDROcodone/acetaminophen (*CRX) 5-325 MG TABLET 1 TAB PO ×2 (09:14→15:20)
[2024-12-06] MEDS: FLECAINIDE ACETATE 100 MG TABLET PO (09:15)
[2024-12-06] MEDS: DOCUSATE SODIUM 100 MG CAPSULE PO (09:15)
[2024-12-06] MEDS: SERTRALINE HCL 50 MG TABLET PO (09:15)
[2024-12-06] MEDS: EMPAGLIFLOZIN 10 MG TABLET PO (09:15)
[2024-12-06] MEDS: SACUBITRIL/VALSARTAN 24-26 MG TABLET 1 TAB PO (09:15)
[2024-12-06] MEDS: ENOXAPARIN 40 MG/0.4 ML SYRINGE SUB-Q (11:18)
[2024-12-06] MEDS: methylPREDNISolone SOD SUCC 40 MG VIAL IV PUSH (11:19)
[2024-12-06 11:59] LABS: Glucose Point of Care 157 mg/dl (65-105)
--- NOTE | 2024-12-06 12:05 | PM.IMPN ---
Progress Note: A&P Assessment and Plan (1) Acute on chronic respiratory failure: Qualifiers: Respiratory failure complication: hypoxia Qualified Code(s): J96.21 - Acute and chronic respiratory failure with hypoxia Code(s): J96.20 - Acute and chronic respiratory failure, unspecified whether with hypoxia or hypercapnia Status: Acute (2) Recurrent malignant neoplasm of left breast: Code(s): C50.912 - Malignant neoplasm of unspecified site of left female breast Status: Acute Subjective Date/time seen: 12/06/24 12:05 Interval history: Interval summary: This is an 84-year-old female with a significant past medical history of hypertension, COPD with 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 Workup in the hospital included a chest x-ray which showed nodular opacification of the right hilum. Chest CT and thoracic spine CT showed re-demonstration of the T6 vertebral body fracture which also demonstrates increased attenuation for which of pathological fracture cannot be excluded, cylindrical and varicose bronchiectasis. Initial labs showed a white blood cell count of 12.7, blood sugars ranging 115-145, proBNP 4210. Respiratory panel was negative for influenza a and B, RSV, COVID. Blood cultures were obtained and pending. EKG showed sinus rhythm with premature ventricular complexes with a rate of 86, QTC 495. Patient was given a dose of IV Solu-Medrol and DuoNeb while in the ED. Subjective: Review of Systems Review of Systems: All other systems were reviewed and negative except as noted in the HPI above Objective Data Vital Signs Vital Signs: Vital Signs - 24 hr 12/05/24 12:25 12/05/24 12:35 12/05/24 16:00 Temperature Pulse Rate 80 83 77 Respiratory Rate 22 H 20 18 Blood Pressure 120/66 Pulse Oximetry 99 Oxygen Delivery Oxygen Flow Rate Fraction of Inspired Oxygen 12/05/24 20:00 12/05/24 20:36 12/05/24 20:44 Temperature 98.6 F Pulse Rate 90 90 Respiratory Rate 18 Blood Pressure 141/73 H Pulse Oximetry 94 94 Oxygen Delivery Nasal Cannula Oxygen Flow Rate 2 Fraction of Inspired Oxygen 12/05/24 20:44 12/06/24 00:00 12/06/24 04:00 Temperature 98.4 F 96.8 F L Pulse Rate 90 63 78 Respiratory Rate 18 18 Blood Pressure 103/54 L 115/69 Pulse Oximetry 97 90 Oxygen Delivery Oxygen Flow Rate Fraction of Inspired Oxygen 12/06/24 08:29 12/06/24 08:29 12/06/24 08:47 Temperature Pulse Rate 81 84 Respiratory Rate 17 20 Blood Pressure Pulse Oximetry 96 Oxygen Delivery BiPAP Oxygen Flow Rate Fraction of Inspired Oxygen 40 12/06/24 09:15 Temperature Pulse Rate 84 Respiratory Rate Blood Pressure Pulse Oximetry Oxygen Delivery Oxygen Flow Rate Fraction of Inspired Oxygen Intake/Output Intake/Output: Intake & Output 12/03/24 12/04/24 12/05/24 12/06/24 23:59 23:59 23:59 23:59 Intake Total 930 1020 540 Balance 930 1020 540 Meds/Results Medications: Active Medications Generic Name Dose Route Start Last Admin Trade Name Freq PRN Reason Stop Dose Admin Acetaminophen 650 mg 12/04/24 05:09 Acetaminophen 325 Mg Tablet PO Q6H PRN Mild Pain (1-3) or Fever Hydrocodone Bitart/Acetaminophen 1 tab 12/04/24 05:09 12/06/24 09:14 Hydrocodone/Acetaminophen (*Crx) 5-325 Mg Tablet PO 1 tab Q6H PRN Administration Pain Rated 4-6 Hydrocodone Bitart/Acetaminophen 1 tab 12/04/24 15:13 12/05/24 22:16 Hydrocodone/Acetaminophen (*Crx) 10-325 Mg Tablet PO 1 tab Q4H PRN Administration Pain Rated 7-10 Albuterol 2.5 mg 12/04/24 15:04 12/05/24 22:10 Albuterol Sulfate Neb 2.5 Mg/3 Ml Inh INHALATION 2.5 mg Q4HRT PRN Administration Shortness Of Breath Alprazolam 0.5 mg 12/04/24 15:10 12/05/24 22:17 Alprazolam (*Crx) 0.5 Mg Tablet PO 0.5 mg TID PRN Administration Anxiety Alprazolam 0.25 mg 12/04/24 22:12 Alprazolam (*Crx) 0.25 Mg Tablet PO TID PRN anxiety Budesonide 0.5 mg 12/04/24 20:00 12/06/24 08:26 Budesonide Respule Neb 0.5 Mg/2 Ml Amp INHALATION 0.5 mg Q12HRT ANA Administration Dextrose 12.5 gm 12/05/24 12:12 Dextrose 50% 25 Gm/50 Ml Syringe IV PUSH PRN PRN Hypoglycemia Protocol Docusate Sodium 100 mg 12/05/24 21:00 12/06/24 09:15 Docusate Sodium 100 Mg Capsule PO 100 mg Q12HR ANA Administration Empagliflozin 10 mg 12/05/24 09:00 12/06/24 09:15 Empagliflozin 10 Mg Tablet PO 10 mg DAILY NAA Administration Enoxaparin Sodium 40 mg 12/05/24 09:00 12/06/24 11:18 Enoxaparin 40 Mg/0.4 Ml Syringe SUB-Q 40 mg DAILY ANA Administration Famotidine 40 mg 12/04/24 22:25 12/05/24 20:44 Famotidine 20 Mg Tablet PO 40 mg QHS ANA Administration Flecainide Acetate 100 mg 12/04/24 22:15 12/06/24 09:15 Flecainide Acetate 100 Mg Tablet PO 100 mg Q12HR ANA Administration Gabapentin 300 mg 12/04/24 22:25 12/05/24 16:07 Gabapentin 300 Mg Capsule PO Not Given BID ANA Glucagon 1 mg 12/05/24 12:12 Glucagon For Inj 1 Mg Vial IM PRN PRN Hypoglycemia Protocol Glucose 15 gm 12/05/24 12:12 Glucose Oral Gel 15 Gm Of Glucse In 37.5 Gm Tube PO PRN PRN Hypoglycemia Protocol Hydromorphone HCl 0.5 mg 12/04/24 15:13 12/04/24 15:28 Hydromorphone Hcl Inj (*Crx) 1 Mg/Ml Syr IV PUSH 0.5 mg Q3H PRN Administration Pain Rated 7-10 Dextrose 1,000 mls @ 100 mls/hr 12/05/24 12:12 Dextrose 5% 1,000 Ml IVPB PRN PRN Hypoglycemia Protocol Lidocaine 1 patch 12/04/24 15:15 12/06/24 11:18 Lidocaine 5% Patch TRANSDERM Not Given DAILY [facility] Methylprednisolone Sodium Succinate 40 mg 12/05/24 21:00 12/06/24 11:19 Methylprednisolone Sod Succ 40 Mg Vial IV PUSH 40 mg Q12HR ANA Administration Metoprolol Succinate 25 mg 12/04/24 22:20 12/05/24 20:44 Metoprolol Succinate Ext Rel 25 Mg Tabcr PO 25 mg QHS ANA Administration Mirtazapine 7.5 mg 12/04/24 22:20 12/05/24 20:45 Mirtazapine 7.5 Mg Tablet PO 7.5 mg QHS ANA Administration Sacubitril/Valsartan 1 tab 12/04/24 22:15 12/06/24 09:15 Sacubitril/Valsartan 24-26 Mg Tablet PO 1 tab Q12HR ANA Administration Fluticasone/Salmeterol 2 puff 12/04/24 20:00 12/06/24 08:28 Fluticasone/Salmeterol 45-21 Mcg Inhaler 1 Puff INHALATION 2 puff Q12HRT ANA Administration Sertraline HCl 50 mg 12/05/24 09:00 12/06/24 09:15 Sertraline Hcl 50 Mg Tablet PO 50 mg QAM ANA Administration Umeclidinium/Vilanterol 1 puff 12/05/24 09:00 12/06/24 08:28 Umeclidinium/Vilanterol 62.5-25 Mcg Ellipta INHALATION 1 puff DAILY ANA Administration Radiology Results: ITS Impressions Chest X-Ray 12/03/24 19:30 IMPRESSION: Nodular opacification of the right hilum, which may be vascular in origin but an interval change from prior for which noncontrast enhanced CT examination of the chest is suggested. Chest CT 12/03/24 22:15 IMPRESSION: Redemonstration of the T6 vertebral body fracture which also demonstrates increased attenuation for which a pathologic fracture cannot be excluded. Interval development of the mediastinal lymphadenopathy, corresponding to the abnormality seen on plain film radiograph. Cylindrical and varicose bronchiectasis is also noted. Thoracic Spine CT 12/03/24 22:15 IMPRESSION: Redemonstration of the T6 vertebral body fracture which also demonstrates increased attenuation for which a pathologic fracture cannot be excluded. Interval development of the mediastinal lymphadenopathy, corresponding to the abnormality seen on plain film radiograph. Cylindrical and varicose bronchiectasis is also noted. Labs Labs: Laboratory Results - last 24 hr 12/05/24 12/05/24 12/06/24 16:34 20:55 07:47 POC Capillary Glucose 111 H 123 H 132 H 12/06/24 11:40 POC Capillary Glucose 157 H
[2024-12-06] MEDS: GABAPENTIN 300 MG CAPSULE PO (14:01)
[2024-12-06] MEDS: ALBUTEROL SULFATE NEB 2.5 MG/3 ML INH INHALATION (14:27)
--- NOTE | 2024-12-06 15:03 | P.DS_ITS ---
DS: Admitting Diagnosis Discharge Date 12/06/24 Admitting Diagnosis Acute on chronic respiratory failure Recurrent malignant neoplasm of left breast DS: Discharge Diagnosis Discharge Diagnosis (1) Acute on chronic respiratory failure: Qualifiers: Respiratory failure complication: hypoxia Qualified Code(s): J96.21 - Acute and chronic respiratory failure with hypoxia Code(s): J96.20 - Acute and chronic respiratory failure, unspecified whether with hypoxia or hypercapnia Status: Acute (2) Recurrent malignant neoplasm of left breast: Code(s): C50.912 - Malignant neoplasm of unspecified site of left female breast Status: Acute DS: Summary Hospital Course Reason for hospitalization: Acute on chronic respiratory failure Recurrent malignant neoplasm of left breast Hospital Course: This is an 84-year-old female with a significant past medical history of hypertension, COPD with 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 Workup in the hospital included a chest x- ray which showed nodular opacification of the right hilum. Chest CT and thoracic spine CT showed re-demonstration of the T6 vertebral body fracture which also demonstrates increased attenuation for which of pathological fracture cannot be excluded, cylindrical and varicose bronchiectasis. Initial labs showed a white blood cell count of 12.7, blood sugars ranging 115-145, proBNP 4210. Respiratory panel was negative for influenza a and B, RSV, COVID. Blood cultures were obtained and pending. EKG showed sinus rhythm with premature ventricular complexes with a rate of 86, QTC 495. Patient was given a dose of IV Solu-Medrol and DuoNeb while in the ED. Patient is feeling much better today after receiving breathing treatments and IV Solu-Medrol. She is back down to 2 L nasal cannula which she wears at home as needed. She is stable for discharge at this time. She will be discharged on a Solu-Medrol Dosepak, DuoNeb breathing treatments for the next 3 days, azithromycin. She was also given a prescription for her [place] as she has been having increased pain which caused her not to take deep breaths from her compression fracture in her back. She was recently transitioned off of [place] abruptly and started on Neurontin and diclofenac. We will give her 10 day supply of [place] as it takes 7 days or longer for Neurontin to start working. Hopefully this will give her a more stable transition. She also was given a Pep valve to help loosen up secretions as she is not able to tolerate her CPT vest at home. She will need to follow up with her Primary care doctor in 1 week and her regular scheduled appointment with her industrial editor next month. * Final diagnosis acute on chronic respiratory failure with hypoxia, COPD exacerbation Status at Discharge Cognitive/behavioral status at discharge: Alert oriented x3 Functional status at discharge: uses cane/walker Overall status at discharge: patient is progressing back to baseline Time Spent with Patient Time attestation: Total time spent providing and/or coordinating discharge services: Time spent: Greater than 30 minutes Exam Narrative: General: In no acute distress, well nourished Head: atraumatic, no encephalopathy Eyes: EOMI, PERRLA, sclera clear ENT: moist mucous membranes, nasal passages clear Neck: supple, no JVD, no adenopathy, trachea midline Cardiac: Normal S1 and S2. No murmur, gallops or friction rubs, peripheral pulses intact. Respiratory: Lungs clear to auscultation, no adventitious lung sounds Gastrointestinal: soft, non-distended, non-tender, normoactive bowel sounds. : voiding without difficulty. Extremities: moves all extremities well, no edema, good ROM, strength 5/5 Skin: clean, dry, intact. No wounds or lesions. Neuro: Alert and oriented x4, cranial nerves intact, no neuro deficits. Psych: normal mood, normal affect, interactive DS: Data Data Completed and Pending Completed studies during hospitalization: Thoracic spine CT Chest CT Chest x-ray Pending studies at discharge: Blood cultures Labs on day of discharge: Labs from last 24 hours 12/06/24 12/06/24 12/05/24 11:40 07:47 20:55 POC Capillary Glucose 157 H 132 H 123 H 12/05/24 16:34 POC Capillary Glucose 111 H Preliminary micro results at discharge 12/04/24 02:33 Blood Culture - Preliminary Blood 12/04/24 00:48 Blood Culture - Preliminary Blood Procedures/Treatments: None Discharge Plan Discharge Attending physician on discharge: Johan Schmid Discharging Clinician: Rosa Clark Anticipated Discharge Date/Time: 12/06/24 15:00 Patient Disposition: Home, Self-Care Activity: as tolerated Diet: as tolerated and heart healthy Discharge Instructions: * Continue taking your Duoneb breathing treatments every 6 hours for the next 3 days * Finish your steroid taper, hold off on diclofenac while on the steroid. Start steroid pack tomorrow 12/07/24 * Take all your antibiotic as prescribed * Continue Pep therapy with flutter valve. * Follow up with primary care doctor in 1 week * Keep regular scheduled appointment with your industrial editor. * Continue [place] for pain while transitioning to Neurontin and Diclofenac. Again, hold off on Diclofenac while on the steroid. Patient Instructions: Antibiotic Form, Heart Failure (GEN) Patient Language: Georgian Stand Alone Forms: General Discharge Information Follow-up/Referrals: Pawan Echevarria MD [Primary Care Provider] - 1 Week Discharge Medications: New hydrocodone-acetaminophen 5-325 mg Tablet 1 tablet PO Q6H PRN (Reason: Pain Rated 4-6) Qty: 40 0RF lidocaine [Lidoderm] 5 % Adhesive Patch,Medicated 1 patch transdermal DAILY Qty: 15 0RF ipratropium-albuterol 0.5 mg-3 mg(2.5 mg base)/3 mL solution for nebulization 3 ml inhalation Q6H Qty: 90 0RF azithromycin 500 mg tablet 500 mg PO DAILY 5 Days Qty: 5 0RF methylprednisolone 4 mg tablets,dose pack See Rx Instructions .ROUTE .COMPLEX Qty: 21 0RF Rx Instructions: orally per package directions Continued metoprolol succinate 25 mg tablet extended release 24 hr 25 mg PO QHS sodium chloride 3 % solution for nebulization 25 ml inhalation Q4-6H PRN (Reason: sob/wheezing) famotidine 40 mg tablet 40 mg PO QHS Qty: 90 0RF mirtazapine 7.5 mg tablet 7.5 mg PO QHS Qty: 90 0RF Jardiance 10 mg tablet 10 mg PO DAILY sertraline 25 mg tablet 50 mg PO DAILY alprazolam 0.25 mg tablet 0.25 mg PO TID PRN (Reason: anxiety) Qty: 90 0RF albuterol sulfate [Ventolin HFA] 90 mcg/actuation HFA aerosol inhaler 2 inh inhalation Q4H PRN (Reason: shortness of breath or wheezing) Qty: 6.7 0RF Rx Instructions: Teva Entresto 24-26 mg tablet 1 tablet PO Q12H gabapentin 300 mg capsule 300 mg PO BID Qty: 60 0RF Rx Instructions: take 1 capsule at bedtime nightly for one week then change to twice daily. doxycycline monohydrate 100 mg capsule 100 mg PO BID Qty: 20 0RF (DME) Medium compression socks See Rx Instructions .Route .MEDSUPPLY Qty: 1 0RF Rx Instructions: knee high, bilateral- 17 gradient cholecalciferol (vitamin D3) 75 mcg (3,000 unit) Tablet 1,000 unit PO DAILY Alkadophilus 2 cap PO DAILY flecainide 100 mg tablet 100 mg PO Q12H Patient Comments: just Rx by platform operations director Calcium Magnesium 500 mg calcium -250 mg Tablet 2 tablet PO DAILY magnesium 200 mg Tablet 200 mg PO DAILY multivitamin [Daily Multi-Vitamin] Tablet 1 tablet PO DAILY ondansetron HCl 4 mg tablet 4 mg PO Q6H PRN (Reason: nausea and vomiting) Qty: 30 3RF Held Anoro Ellipta 62.5-25 mcg/actuation blister with device 1 inh inhalation DAILY Hold Instructions: Resume on 12/13/24. Resume in 3 days after finished with Duoneb breathing treatments albuterol sulfate 2.5 mg /3 mL (0.083 %) solution for nebulization 2.5 mg continuous nebulization Q6H PRN (Reason: sob/wheezing) Hold Instructions: Resume on 12/10/24. Resume in 3 days as needed diclofenac potassium 50 mg tablet 50 mg PO Q12H PRN (Reason: pain) Hold Instructions: Resume on 12/13/24. Resume after steroid taper is finished Rx Instructions: anti-inflammatory medication Date of admission: 12/04/24 15:43 Primary Care Provider: Pawan Echevarria Admitting Provider: Bro Sweet Attending physician on admission: Rosa Clark Condition: Improved Hospitalist MIPS Heart Failure (Exclusion) Patient has history of Heart Transplant or Left Ventricular Assistive Device?: No IF YES, STOP HERE Heart Failure (Qualifier) Patient has current or prior documentation of LVEF less than or equal to 40%, or mod/servere depressed LVSF?: Yes IF NO, STOP HERE If Yes, Heart Failure (Qualifier) Patient was prescribed or already taking an Angiotensin-Converting Enzyme (CALVIN) Inhibitor, or Antiotensin Receptor Adria (ARB): Yes Patient was prescribed or already taking bisoprolol, carvedilol, or sustained release metoprolol succinate: Yes
== END 2024-12-06 16:10 | disposition home or self-care (01) | DRG 189 ==
LOC: ANHED 19:20 → ANH3MEDSUR 12-04 00:31
PROVIDERS: Internal Medicine; Student in an Organized Health Care Education/Training Program; Admitting Provider Internal Medicine; Emergency Provider Emergency Medicine; PCP Family Medicine; Visit Provider Nurse Practitioner Acute Care
DX: J96.21 Acute and chronic respiratory failure with hypoxia (principal); I42.8 Other cardiomyopathies; I50.42 Chronic combined systolic (congestive) and diastolic (congestive) heart failure; M48.54XA Collapsed vertebra, not elsewhere classified, thoracic region, initial encounter for fracture; J44.1 Chronic obstructive pulmonary disease with (acute) exacerbation; C50.912 Malignant neoplasm of unspecified site of left female breast; I11.0 Hypertensive heart disease with heart failure; J43.9 Emphysema, unspecified; M81.0 Age-related osteoporosis without current pathological fracture; R91.8 Other nonspecific abnormal finding of lung field; Z99.81 Dependence on supplemental oxygen; Z20.822 Contact with and (suspected) exposure to COVID-19; Z87.891 Personal history of nicotine dependence
CPT/HCPCS: 36415; 36600; 71046; 71250; 72128; 80053; 82805; 82948; 83605; 83735; 83880; 85018; 85025; 87040; 87637; 93005; 94002; 94003; 94640; 96365; 96367; 96375; 96376; 99285; A9270; G0378; J0456; J0692; J1171; J1650; J1815; J2270; J2919

== ENCOUNTER 2024-12-09 12:11 | Outpatient (CLI) | payer MEDICARE, OTHER, SELFPAY ==
--- NOTE | ~2024-12-09 | PE_ITS ---
EXAMINATION: PET skull to mid thigh DATE: 12/09/2024 14:33 INDICATION: Malignant neoplasm of the left breast TECHNIQUE: Blood glucose level was 125 mg/dL. 9.636 mCi of 18-fluorodeoxyglucose (18-FDG) was adminis tered i.v. Low dose computed tomography (CT) images were acquired from the base of the brain to the p roximal thighs for attenuation correction and anatomic localization. Positron emission tomography (PE T) images were acquired in the same distribution beginning 59 minutes after injection. Images includi ng fused PET/CT images were reconstructed in axial, coronal, and sagittal planes. Automated exposure control technique was employed. The dose-length product was 625.56mGy-cm. COMPARISON: 12/04/2023 FINDINGS: Head/neck: No pathologically enlarged lymphadenopathy or abnormally FDG avid lesions in the visualized head or n leander. Chest: Mild biapical pleural-parenchymal scarring. Calcified right lower lobe nodule consistent with old gra nulomatous disease. There are tree-in-bud opacities and mucous plugging in the bilateral lower lobes consistent with endobronchial spread of disease. Bandlike discoid atelectasis in the basilar lower lo bes as well as the right middle lobe and lingula. No abnormal FDG avid pulmonary nodules. Heart size is normal. No pericardial effusion. Thoracic aorta is normal in caliber. There are 3 FDG avid lymph n odes at the left axilla and lateral margin of the left breast, the largest, most cephalad and most FD G avid measuring 2.0 x 1.0 cm with maximal SUV of 7.7 consistent with metastatic disease. Tiny focus of increased uptake with maximal SUV of 2.8 There is increased uptake associated with recent-appearin g compression fractures of the T6 and T7 vertebral bodies as well as associated with fractures of the left sixth-eighth ribs near their articulation with the vertebral bodies. The increased uptake in th e vertebral bodies is relatively low in activity relative to the left axillary lymph node with maycol l SUV of 4.3. The uptake is also relatively diffuse and would favor that is related to the fracture a s opposed to underlying metastatic disease. There are however smaller foci of bone uptake associated with subtle lytic lesions at the lateral left fifth rib with maximal SUV of 3.4 and at the inferior r ight scapula with maximal SUV of 4.5 consistent with osseous metastatic disease. Abdomen/pelvis/proximal thighs: Physiologic renal accumulation and excretion of FDG activity in the kidneys, bladder and along portio ns of ureters. Normal degree and heterogenous pattern of increased uptake throughout the liver withou t radiologic correlate or dominant FDG avid lesion. Calcified gallstones in the dependent aspect of t he normal-appearing gallbladder. Pancreas, spleen and bilateral adrenal glands are normal. Mild uptak e scattered throughout the bowels without radiologic correlate, also likely physiologic. Photopenic d efect associated with a low-attenuation 3.9 cm right adnexal cyst. No other abnormal foci of increase d FDG uptake or pathologically enlarged lymphadenopathy in the abdomen, pelvis or proximal thighs. St reak artifact in the pelvis associated with a left hip arthroplasty. No other suspicious lytic, blast ic or abnormally FDG avid bone lesions. IMPRESSION: 1. 3 FDG avid lymph nodes at the left axilla extending to the lateral left breast consistent with loc al metastatic disease. 2. FDG avid lesion associated with subtle lytic lesions at the left fifth rib and right scapula consi stent with osseous metastatic disease. 3. Relatively mild diffuse uptake associated with T6 and T7 compression fractures and fractures of th e immediately adjacent posterior right sixth-eighth ribs. Could not exclude pathologic fracture relat ed to additional osseous metastatic disease however given the relatively diffuse low-level uptake wou ld favor that the uptake is related to the fractures. Reviewed, dictated and finalized at location B. IMPRESSION: 1. 3 FDG avid lymph nodes at the left axilla extending to the lateral left yoseph st consistent with local metastatic disease. 2. FDG avid lesion associated with subtle lytic lesions at the left fifth rib a nd right scapula consistent with osseous metastatic disease. 3. Relatively mild diffuse uptake associated with T6 and T7 compression fractur es and fractures of the immediately adjacent posterior right sixth-eighth ribs. Could not exclude pathologic fracture related to additional osseous metastatic disease however given the relatively diffuse low-level uptake would favor that the uptake is related to the fractures.
[2024-12-09 12:42] LABS: Glucose Point of Care 125 mg/dl (65-105)
--- OUTSIDE RECORDS SUMMARY | 2024-12-09 14:15 | XMS_ITS | Encounter Summary ---
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
--- OUTSIDE RECORDS SUMMARY | 2024-12-09 14:15 | XMS_ITS | Encounter Summary ---
Author Organization [facility] Address [facility] [place] [address] Care Team Providers Care Director Safety Council Name Role Phone Gavin Gross MD Primary Care Provider [phone] Pawan Echevarria MD Primary Care Provider [phone] Encounter Details Date Type Department Care Team (Late st Contact Info) Description 12/08/2022 MyChart Message Enc [facility] Medical [facility] Multispecialty Care - [address] [place] [address] Abdon Flynn MD [address] [place] [address] [address] [place] [address] Rx for Nebulizer Social History Tobacco Use [...] Sex Assigned at Female 10/03/2024 2:27 PM 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 Legal Sex Female 4:16 PM CDT [...] HEALTH CENTER Medical [facility] Multispecialty Care - [facility] [address] [facility] [place] [address] Abdon Flynn MD [address] [place] [address] [address] [place] [address] documented as of this encounter Visit Diagnoses Not on filedocumented in this encounter Additional Health Concerns Infection Onset Date Last Indicated Resolved Time COVID-19 Rule Out 10/03/2024 10/03/2024 10/03/2024 5:30 PM 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 COVID-19 Rule Out 10/04/2024 10/04/2024 10/04/2024 3:19 AM 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 Influenza - Seasonal 10/04/2024 10/04/2024 025 12:32 AM 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 Assessment Noted Time PHQ-9 Depression Total Score: 0 12/13/19 22 11:54 AM CDT documented as of this encounter Care Teams Director Safety Council Relationship Specialty Start Date End Date Gavin Gross MD [address] [facility] [address] [place] [address] PCP - General FAMILY PRACTICE 07/13/22 04/16/23 Pawan Echevarria MD [address] [facility] [address] [place] [address] PCP - General FAMILY PRACTICE 04/17/23 documented as of this encounter
--- OUTSIDE RECORDS SUMMARY | 2024-12-09 14:15 | XMS_ITS | Clinical Summary ---
Author Organization [facility] Address [facility] [place] [address] Care Team Providers Care Selector Packer Name Role Phone Pawan Echevarria MD Primary Care Provider [phone] Allergies Active Allergy Reactions Criticality Noted Date Comments Ipratropium Unknown 07/04/2018 Levofloxacin Hallucinations Medium 10/06/2024 [place]'s Pain Patient reported during admission 09/2024 after [...] (NEBULIZER/TUBING /MOUTHPIECE) KitIndications:Br onchiectasis without complication (CMS/HCC [facility]) 1 each by Does not apply route every 4 (four) hours as needed. 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 Bronchiectasis ([facility]) 11/28/2018 Cigarette nicotine dependence in remission 11/28 Productive cough 11/28/2018 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 COPD (chronic obstructive pu lmonary disease) ([facility]) 03/05/2018 History of Pseudomonas pneumonia 01/27/2018 Pleural thickening 01/27/2018 Bacterial infection 12/13/2017 Chronic cough 12/10/2017 Asthma exacerbation ([facility]CC) 12/10/2017 Wheeze 12/10/2017 Resolved Problems Problem Noted Date Diagnosed Date Resolved Date Encounter for preventive health examination 11/07/2017 05/28/2020 Encounters Date Type Department Care Team Description 11/18/2024 MyChart Message Enc [facility] Medical [facility] Multispecialty Care - [facility] [address] [place] [phone] Naeem Grissom MD Move Up Appointment 10/28/[address] [facility] [place] [address] [place] [phone] Naeem Grissom MD Results 10/24/2024 12:00 PM TOP LIFT SCOURER Home Care Visit [address] [place] [address] Juana Gonzalez, RN SN OASIS DISCHARGE/ASSESSMENT 10/24/2024 Home Care Visit [address] [place] [address] [place] [address] Juana Gonzalez, RN [facility] INTERDISCIPLINARY [facility] [place] 10/22/2024 11:30 AM TOP LIFT SCOURER Home Care Visit [facility] [address] [place] [address] [place] [address] Juana Gonzalez, RN SN HOME VISIT 10/17/2024 9:45 AM TOP LIFT SCOURER Home Care Visit [facility] [address] [place] [address] [place] [address] Juana Gonzalez, RN SN HOME VISIT 10/14/2024 1:30 PM TOP LIFT SCOURER Home Care Visit [facility] [address] [place] [address] [place] [address] Iris Chauhan od, LPN SN HOME VISIT 10/13/2024 4:00 PM TOP LIFT SCOURER Home Care Visit [facility] [address] [place] [address] [place] [address] Olga Huertas, PT PT INITIAL EVALUATION 10/09/2024 10:30 AM TOP LIFT SCOURER Home Care Visit [facility] Home Care [address] [place] [address] [place] [address] Juana Gonzalez RN SN OASIS START OF CARE 10/09/2024 Home Care Visit [facility] [address] [place] [address] [place] [address] Juana Gonzalez RN [facility] INTERDISCIPLINARY [facility] 10/09/2024 Plan of Care Documentation [facility] Home Care [address] [place], [place] [id number] 10/08/2024 10:00 AM TOP LIFT SCOURER Home Care Visit [facility] [address] [place] [address] [place] [address] Eveline Newton RN SN NON ADMIT SOC 10/06/2024 11:45 AM TOP LIFT SCOURER Home Care Visit [facility] [address] [place], [place] [phone] Denice Lizarraga DRUG ROOM CLERK VISIT 10/03/2024 3:39 PM TOP LIFT SCOURER - 10/08/2024 3:59 PM TOP LIFT SCOURER Hospital Encounter [facility] [place] [address] Sarthak Hendrickson MD Alexander, Kaci M, Nelson High DO Suresh, Aditya Krishna, MD Shortness Of Breath Discharge Disposition: Home with Home Health Care 10/03/2024 Travel 10/03/2024 MyChart Message Enc [facility] Medical Group Multispecialty Care - [facility] [address] [facility], [address] [place] [phone] Naeem Grissom MD Fever/Shortness of Breath 09/22/2024 2:51 PM TOP LIFT SCOURER - 09/22/2024 11:59 PM TOP LIFT SCOURER Hospital Encounter [facility] Sleep Lab [address] [place] [address] Naeem Grissom MD Snoring Discharge Disposition: Home or Self Care (Routine Discharge) 09/22/2024 Travel 09/11/2024 10:20 AM TOP LIFT SCOURER Office Visit [facility] Medical Group Multispecialty Care - [facility] [address] [place] [phone] Naeem Grissom MD Follow Up (Was at [facility] 08/2024 for UTI (had EKG and CXR [...] materials from doctor or pharmacy Never 10/24/2024 [facility] Utilities Answer Date Recorded In the past 12 months has th e [employer] gas, oil, or water [employer] threatened to shut off services in your [...] and Family Not on file 10/04/2024 Attends [employer] Not on file 10/04 Active Member [...] Health Questionnaire-2 Score 2 12/05/2022 [facility] - Occupational [...] time in the past 12 m [facility], were you homeless or living in a group home (including now)? 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 2:27 PM TOP LIFT SCOURER Legal Sex Female 4:16 PM CDT Gender Identity Not on file Sexual Orientation Not on file Last Filed Vital Signs Vital Sign Reading Time Taken Comments Blood Pressure 112/54 10/24/2024 12:28 PM TOP LIFT SCOURER Pulse 78 10/24/2024 12:28 PM TOP LIFT SCOURER Temperature 36.6 C (97.9 F) 10/14/2024 1:35 PM TOP LIFT SCOURER Respiratory Rate 20 10/24/2024 12:28 PM TOP LIFT SCOURER Oxygen Saturation 93% 10/24/2024 12:28 PM TOP LIFT SCOURER Inhaled Oxygen Concentration - - Weight 59 kg (130 lb) 10/24/2024 12:28 PM TOP LIFT SCOURER Height 162.6 cm (5' 4 ) 10/03/2024 8:42 PM TOP LIFT SCOURER Body Mass Index 22.31 10/03/2024 8:42 PM TOP LIFT SCOURER Plan of Treatment Upcoming Encounters Date Type Department Care Team (Late st Contact Info) Description 01/14/2025 11:40 AM CDT Office Visit [facility] Medical Group Multispecialty Care - [facility] [address] [place] [address] Naeem Grissom MD [address] [facility] [address] [place] [address] Health Maintenance Due Date Last Done Comments [...] 10/26/2020 Influenza Adult (#1) 2024 PHQ-2 (Physician [employer]) 09/17/2024 10/25/2023 Meningococcal B Vaccine Aged Out [...] HOME O2 EVAL Routine 10/08/2024 11:26 AM TOP LIFT SCOURER CBC W/DIFF AUTOMATED Routine 10/08/2024 5:46 AM TOP LIFT SCOURER BASIC METABOLIC PANEL Routine 10/08/2024 5:46 AM TOP LIFT SCOURER CBC W/DIFF AUTOMATED Routine 10/07/2024 6:07 AM TOP LIFT SCOURER BASIC METABOLIC PANEL Routine 10/07/2024 6:07 AM TOP LIFT SCOURER CBC W/DIFF AUTOMATED Routine 10/06/2024 6:13 AM TOP LIFT SCOURER BASIC METABOLIC PANEL Routine 10/06/2024 6:13 AM TOP LIFT SCOURER CBC W/DIFF AUTOMATED Routine 10/05/2024 8:03 AM TOP LIFT SCOURER BASIC METABOLIC PANEL Routine 10/05/2024 8:03 AM TOP LIFT SCOURER CULTURE LOWER RESPIRATORY W/GRAM STAIN STAT 10/04/2024 1:32 PM TOP LIFT SCOURER CULTURE, TB/AFB W/ STAIN STAT 10/04/2024 1:32 PM TOP LIFT SCOURER COMPREHENSIVE METABOLIC PANEL STAT 10/04/2024 6:00 AM TOP LIFT SCOURER CBC W/DIFF AUTOMATED STAT 10/04/2024 6:00 AM TOP LIFT SCOURER RESPIRATORY PCR PANEL 2 STAT 10/04/2024 1:12 AM TOP LIFT SCOURER HC MYCOPLASMA AB-90 Routine 10/04/2024 1 2:31 AM TOP LIFT SCOURER CULTURE, BACTERIA, BLOOD STAT 10/03/2024 11:10 PM TOP LIFT SCOURER ECG 12-LEAD STAT 10/03/2024 4:49 PM TOP LIFT SCOURER CULTURE LOWER RESPIRATORY W/GRAM STAIN STAT 10/03/2024 4:27 PM TOP LIFT SCOURER INFLUENZA A & B STAT 10/03/2024 4:27 PM TOP LIFT SCOURER CORONAVIRUS (COVID 19) STAT 4:27 PM TOP LIFT SCOURER LEGIONELLA AG URINE STAT 10/03/2024 4 :15 PM TOP LIFT SCOURER HC INFECT AGENT DETECT OPTICAL STAT 10/03/2024 4:15 PM TOP LIFT SCOURER TSH W/REFLEX Routine 10/03/2024 4:15 PM TOP LIFT SCOURER PHOSPHORUS, INORGANIC PHOSPHATE Routine 10/03/2024 4:15 PM TOP LIFT SCOURER MAGNESIUM Routine 10/03/2024 4:15 PM TOP LIFT SCOURER PROCALCITONIN (PCT) STAT 10/03/2024 4 :15 PM TOP LIFT SCOURER URINALYSIS, AUTO, COMPLETE STAT 10/03/2024 4:15 PM TOP LIFT SCOURER COMPREHENSIVE METABOLIC PANEL STAT 10/03/2024 4:15 PM TOP LIFT SCOURER CBC W/DIFF AUTOMATED STAT 10/03/2024 4:15 PM TOP LIFT SCOURER PRO-BRAIN NATRIURETIC PEPTIDE STAT 10/03/2024 4:15 PM TOP LIFT SCOURER TROPONIN, QUANT STAT 10/03/2024 4:15 PM TOP LIFT SCOURER BLOOD GAS, ARTERIAL LAB STAT 10/03/2024 4:05 PM TOP LIFT SCOURER XR CHEST PA+LAT STAT 10/03/2024 3:05 PM TOP LIFT SCOURER HOME SLEEP STUDY - WATCHPAT Routine 09/22/2024 3:00 PM TOP LIFT SCOURER Snoring from Last 3 Months Results * (ABNORMAL) BASIC METABOLIC PANEL (10/08/2024 5:46 AM TOP LIFT SCOURER) Only the most recent of4 resultswithin the time period is included. GLUCOSE 84 70 - 99 MG/DL 10/08/2024 9:39 AM TOP LIFT SCOURER [facility] BUN 19(H) 7 - 18 MG/DL 10/08/2024 9:39 AM TOP LIFT SCOURER [facility] CREATININE S/P/B 0.58 0.55 - 1.02 MG/DL 10/08/2024 9:39 AM TOP LIFT SCOURER [facility] SODIUM S/P/B 134(L) 136 - 145 MMOL/L 10/08/2024 9:39 AM TOP LIFT SCOURER [facility] POTASSIUM S/P/B 4.0 3.5 - 5.1 MMOL/L 10/08/2024 9:39 AM TOP LIFT SCOURER [facility] CHLORIDE S/P/B 102 97 - 115 MMOL/L 10/08/2024 9:39 AM TOP LIFT SCOURER [facility] CO2 29.0 21 - 32 MMOL/L 10/08/2024 9:39 AM TOP LIFT SCOURER [facility] CALCIUM S/P/B 8.6 8.5 - 10.1 MG/DL 10/08/2024 9:39 AM [facility] ANION GAP 3.0 2 - 10 MMOL/L 10/08/2024 9:39 AM [facility] BUN CREATININE RATIO 32.9(H) 6 - 26 10/08/2024 9:39 AM [facility] GFR ESTIMATE 90(L) >90 ML/MIN/1.7 3 M2 10/08/2024 9:39 AM [facility] Comment: NOTE: eGFR is not calculated for patients <18 years of age or gender unknown. This is an estimated GFR calculation using the new CKD EPI creatinine equation without race and so does not require a correction factor for race. This estimated GFR should not be used for calculating drug doses. 10/08/2024 5:46 AM TOP LIFT SCOURER Wolf Turner MD LABORATORY Final R esult [facility] [address] [place] [address], * (ABNORMAL) CBC W/DIFF AUTOMATED (10/08/2024 5:46 AM TOP LIFT SCOURER) Only the most recent of6 resultswithin the time period is included. WBC 4.27(L) 4.5 - 11.0 x10'3/uL 10/08/2024 6:40 AM [facility] RBC 4.40 4.20 - 5.40 x10'6/uL 10/08/2024 6:40 AM [facility] HGB 12.5 12.0 - 16.0 G/DL 10/08/2024 6:40 AM [facility] HCT 39.2 38.0 - 48.0 % 10/08/2024 6:40 AM [facility] MCV 89.1 81.0 - 99.0 FL 10/08/2024 6:40 AM [facility] MCH 28.4 27.0 - 31.0 PG 10/08/2024 6:40 AM [facility] MCHC 31.9(L) 32.0 - 36.0 G/DL 10/08/2024 6:40 AM [facility] RDW 13.0 11.5 - 14.5 % 10/08/2024 6:40 AM [facility] PLT 180 130 - 400 x10'3/uL 10/08/2024 6:40 AM [facility] MPV 10.2 9.3 - 12.2 FL 10/08/2024 6:40 AM [facility] DIFFERENTIAL TYPE AUTOMATED DIFFERENTIAL 10/08/2024 6:40 AM [facility] NEUTROPHILS % 57.7 % 10/08/2024 6:40 AM [facility] LYMPHOCYTES % 28.8 % 10/08/2024 6:40 AM [facility] MONOCYTES % 13.1 % 10/08/2024 6:40 AM [facility] EOSINOPHILS 0.0 % 10/08/2024 6:40 AM [facility] BASOPHILS 0.2 % 10/08/2024 6:40 AM [facility] IMMATURE GRANS % 0.2 % 10/08/19 6:40 AM [facility] ABS. NEUTROPHILS 2.46 1.80 - 7.70 x10'3/uL 10/08/2024 6:40 AM [facility] ABS. LYMPHOCYTES 1.23 1.00 - 4.80 x10'3/uL 10/08/2024 6:40 AM TOP LIFT SCOURER [facility] ABS. MONOCYTES 0.56 0.24 - 0.86 x10'3/uL 10/08/2024 6:40 AM TOP LIFT SCOURER [facility] ABS. EOSINOPHILS 0.00(L) 0.04 - 0.36 x10'3/uL 10/08/2024 6:40 AM TOP LIFT SCOURER [facility] ABS. BASOPHILS 0.01 0.01 - 0.08 x10'3/uL 10/08/2024 6:40 AM TOP LIFT SCOURER [facility] ABS. IMMATURE GRANULOCYTES 0.01 0.00 - 0.49 x10'3/uL 10/08/2024 6:40 AM TOP LIFT SCOURER [facility] 10/08/2024 5:46 AM TOP LIFT SCOURER Wolf Turner MD LABORATORY Final R esult [facility] [address] [place] [address], * CULTURE, TB/AFB W/ STAIN (10/04/2024 1:32 PM TOP LIFT SCOURER) SPECIMEN SOURCE SPUTUM, EXPECTORATED 10/04/2024 5:04 PM TOP LIFT SCOURER [facility] RESULT REPORT 10/07/2024 4:58 PM TOP LIFT SCOURER [facility] EMMIE HUTSON Comment: Mycobacteria, Culture, with Fluorochrome Smear Mycobacteria Stn,AF,Fluor SOURCE : SPUTUM, EXPECTOR Result/Comment: No acid-fast bacilli seen. Mycobacteria smear result should be used as an adjunct to culture in diagnosing mycobacterial disease (e.g. tuberculosis). If intended, please ensure an order for Mycobacteria (Glfa-Fspu-Zfnvwof) culture has also been submitted. Acid Fast Culture SOURCE : SPUTUM, EXPECTOR Result/Comment: No Mycobacterium species isolated after 6 weeks incubation. Test Performed by Jose D Gastel[facility], [address] [place], [place] [address], [place] Cj Dallas M.D., Ph.D., Director of Laboratories , [facility] [id number] REPORT STATUS FINAL 11/19/2024 9:06 AM TOP LIFT SCOURER [facility] EMMIE HUTSON SPUTUM / Unknown 10/04/2024 1:32 PM TOP LIFT SCOURER Robin Garcia DO MICROBIOLOGY - GENERAL ORD ERABLES Final Result [facility] [address] [place], [place] , [place] [phone] [facility] [address] [place] [address], [place] [phone] * (ABNORMAL) CULTURE RESPIRATORY W/ GRAM STAIN (10/04/2024 1:32 PM TOP LIFT SCOURER) Only the most recent of2 resultswithin the time period is included. SPEC DESCRIPTION SPUTUM, EXPECTORATED 10/04/2024 1:32 PM TOP LIFT SCOURER [facility] SPECIAL REQUESTS NO SPECIAL REQUEST 10/04/2024 1:32 PM TOP LIFT SCOURER [facility] GRAM STAIN RESULT MODERATE WHITE BLOOD CELLS SEEN 10/05/2024 10:17 AM [facility] GRAM STAIN RESULT FEW MIXED BACTERIAL NIKOLE 10/05/2024 10:17 AM [facility] CULTURE RESULT SPARSE GROWTH OF PSEUDOMONAS AERUGINOSA SUSCEPTIBILITY ON PREVIOUS SPECIMEN [id number] NOTE: ORGANISM MAY DEVELOP RESISTANCE AFTER 3 TO 4 DAYS OF THERAPY WITH THIRD GENERATION CEPHALOSPORINS. TESTING OF REPEAT ISOLATES MAY BE WARRANTED. (A) 10/06/2024 8:37 AM TOP LIFT SCOURER [facility] CULTURE RESULT LIGHT GROWTH OF NORMAL NIKOLE PRESENT 10/06/2024 8:37 AM [facility] SPUTUM SPECIMEN / Unknown 10/04/2024 1:32 PM TOP LIFT SCOURER 10/04/2024 1:46 PM TOP LIFT SCOURER us Robin Garcia DO MICROBIOLOGY - GENERAL ORD ERABLES Final Result [facility] [address] [place] [address], [place] [phone] * (ABNORMAL) COMPREHENSIVE METABOLIC PANEL (10/04/2024 6:00 AM TOP LIFT SCOURER) Only the most recent of2 resultswithin the time period is included. GLUCOSE 119(H) 70 - 99 MG/DL 10/04/2024 6:37 AM [facility] BUN 17 7 - 18 MG/DL 10/04/2024 6:37 AM [facility] CREATININE S/P/B 0.72 0.55 - 1.02 MG/DL 10/04/2024 6:37 AM [facility] SODIUM S/P/B 133(L) 136 - 145 MMOL/L 10/04/2024 6:37 AM [facility] POTASSIUM S/P/B 4.0 3.5 - 5.1 MMOL/L 10/04/2024 6:37 AM [facility] CHLORIDE S/P/B 102 97 - 115 MMOL/L 10/04/2024 6:37 AM [facility] CO2 25.8 21 - 32 MMOL/L 10/04/2024 6:37 AM [facility] CALCIUM S/P/B 8.7 8.5 - 10.1 MG/DL 10/04/2024 6:37 AM [facility] BILIRUBIN TOTAL S/P/B 0.3 0.2 - 1.2 MG/DL 10/04/2024 6:37 AM [facility] Comment: THIS ASSAY IS NOT RECOMMENDED FOR PATIENTS UNDERGOING TREATMENT WITH ELTROMBOPAG DUE TO THE POTENTIAL FOR FALSELY ELEVATED RESULTS. TOTAL PROTEIN S/P/B 6.5 6.4 - 8.2 G/DL 10/04/2024 6:37 AM [facility] ALBUMIN S/P/B 3.1(L) 3.4 - 5.0 G/DL 10/04/2024 6:37 AM [facility] AST 13(L) 15 - 37 U/L 10/04/2024 6:37 AM [facility] ALT 19 14 - 55 U/L 10/04/2024 6:37 AM [facility] ALKALINE PHOSPHATASE S/P/B 49(L) 50 - 136 U/L 10/04/2024 6:37 AM [facility] ANION GAP 5.2 2 - 10 MMOL/L 10/04/2024 6:37 AM [facility] BUN CREATININE RATIO 23.7 6 - 26 10/04/2024 6:37 AM [facility] A/G RATIO 0.9(L) 1.0 - 2.0 RATIO 10/04/2024 6:37 AM [facility] GFR ESTIMATE 83(L) >90 ML/MIN/1.7 3 M2 10/04/2024 6:37 AM [facility] Comment: NOTE: eGFR is not calculated for patients <18 years of age or gender unknown. This is an estimated GFR calculation using the new CKD EPI creatinine equation without race and so does not require a correction factor for race. This estimated GFR should not be used for calculating drug doses. 10/04/2024 6:00 AM TOP LIFT SCOURER us Lilibeth Manzano BICYCLE FITTER LABORATORY Final Resul t [facility] [address] [place] [address], [place] [phone] * (ABNORMAL) RESPIRATORY PCR PANEL 2 (10/04/2024 1:12 AM TOP LIFT SCOURER) Pathologist [facility] ADENOVIRUS PCR (RESP) NOT DETECTED NOT DETECTED 10/04/2024 3:19 AM [facility] CORONAVIRUS 229E PCR (RESP) NOT DETECTED NOT DETECTED 10/04/2024 3:19 AM [facility] CORONAVIRUS HKU1 PCR (RESP) NOT DETECTED NOT DETECTED 10/04/2024 3:19 AM [facility] CORONAVIRUS NL63 PCR (RESP) NOT DETECTED NOT DETECTED 10/04/2024 3:19 AM [facility] CORONAVIRUS OC43 PCR (RESP) NOT DETECTED NOT DETECTED 10/04/2024 3:19 AM [facility] METAPNEUMOVIRUS PCR (RESP) NOT DETECTED NOT DETECTED 10/04/2024 3:19 AM [facility] RHINOVIRUS/ENTEROV IRUS PCR (RESP) NOT DETECTED NOT DETECTED 10/04/2024 3:19 AM [facility] INFLUENZA A/H1-2009 PCR (RESP) DETECTED(A) NOT DETECTED 10/04/2024 3:19 AM [facility] INFLUENZA B PCR (RESP) NOT DETECTED NOT DETECTED 10/04/2024 3:19 AM [facility] PARAINFLUENZA 1 PCR (RESP) NOT DETECTED NOT DETECTED 10/04/2024 3:19 AM [facility] PARAINFLUENZA 2 PCR (RESP) NOT DETECTED NOT DETECTED 10/04/2024 3:19 AM [facility] PARAINFLUENZA 3 PCR (RESP) NOT DETECTED NOT DETECTED 10/04/2024 3:19 AM [facility] PARAINFLUENZA 4 PCR (RESP) NOT DETECTED NOT DETECTED 10/04/2024 3:19 AM TOP LIFT SCOURER [facility] RSV PCR (RESP) NOT DETECTED NOT DETECTED 10/04/2024 3:19 AM TOP LIFT SCOURER [facility] B PARAPERTUSIS PCR (RESP) NOT DETECTED NOT DETECTED 10/04/2024 3:19 AM TOP LIFT SCOURER [facility] BORDETELLA PERTUSSIS PCR (RESP) NOT DETECTED NOT DETECTED 10/04/2024 3:19 AM TOP LIFT SCOURER [facility] CHLAMYDOPHILA PNEUMONIAE PCR (RESP) NOT DETECTED NOT DETECTED 10/04/2024 3:19 AM TOP LIFT SCOURER [facility] MYCOPLASMA PNEUMONIAE PCR (RESP) NOT DETECTED NOT DETECTED 10/04/2024 3:19 AM TOP LIFT SCOURER [facility] CORONAVIRUS SARS COV 2 PCR (RESP) NOT DETECTED NOT DETECTED 10/04/2024 3:19 AM TOP LIFT SCOURER [facility] NASOPHARYNGEAL SWAB / Unknown 10/04/2024 1:12 AM TOP LIFT SCOURER Lilibeth Manzano BICYCLE FITTER MICROBIOLOGY - GENERAL JAI SKELTON Final Result [facility] [address] [place] [address], * (ABNORMAL) MYCOPLASMA PNEUMONIAE AB (10/04/2024 12:31 AM TOP LIFT SCOURER) M. PNEUMONIAE AB IGG 1.65(H) <=0.90 10/08/2024 5:20 PM TOP LIFT SCOURER [facility] Comment: Reference Range: <=0.90 Negative 0.91-1.09 Equivocal >=1.10 Positive A positive IgG result indicates that the patient has antibody to Mycoplasma. It does not differentiate between an active or past infection. The clinical diagnosis must be interpreted in conjunction with the clinical signs and symptoms of the patient. M. PNEUMONIAE AB IGM 25 <770 U/mL 10/08/2024 5:20 PM TOP LIFT SCOURER [facility] Comment: Reference Range: <770 [...] symptoms of the patient. Test Performed by [facility], [employer] [facility], [address] [place] [address] Cj Dallas M.D., Ph.D., Director of Laboratories , [place] [id number] 10/04/2024 12:3 1 AM TOP LIFT SCOURER Lilibeth Manzano APRN LABORATORY Final Resul t Performing Organization Address City/[facility]/ZIP Co de Phone Number [facility] [address] , [place] [phone] * CULTURE BACTERIA, BLOOD (10/03/2024 11:10 PM TOP LIFT SCOURER) SPEC DESCRIPTION BLOOD 10/03/2024 4:16 PM TOP LIFT SCOURER [facility] SPECIAL REQUESTS NO SPECIAL REQUEST 10/03/2024 4:16 PM TOP LIFT SCOURER [facility] CULTURE RESULT NO GROWTH 5 DAYS 10/08/2024 10:45 AM TOP LIFT SCOURER [facility] BLOOD SPECIMEN OBTAINED FOR BLOOD CULTURE / Unknown 10/03/2024 11:10 PM TOP LIFT SCOURER 10/03/2024 11:15 PM TOP LIFT SCOURER Sarthak Hendrickson MD MICROBIOLOGY - GENERAL ORDERABL ES Final Result [facility] [address] [place] [address], [place] [phone] * ECG 12 lead (10/03/2024 4:49 PM TOP LIFT SCOURER) 10/03/2024 4:49 PM TOP LIFT SCOURER Narrative [facility] ([facility] RAD - 10/04/2024 5:10 AM TOP LIFT SCOURER [address] Test Date: 2024-10-03 Pat Name: HERIBERTO MITCHELLTON Department: 41 Room: EXAM10 Gender: Female Dough Molder Hand: PARRISH : 1940 Requested By: BRANDI ACEVES Order Number: [id number] Reading MD: Danny Bee Measurements Intervals [place] Rate: 114 P: 95 AR: 169 QRS: 40 QRSD: 119 T: 138 QT: 322 QTc: 445 Interpretive Statements SINUS TACHYCARDIA WITH FREQUENT VENTRICULAR PREMATURE COMPLEXES Baseline artifact limits interpretation LIFT SCOURER Procedure Note Danny Bee MD - 10/04/[address] Test Date: 2024-10-03 Pat Name: HERIBERTO TEJEDA Department: 41 Room: EXAM10 Gender: Female Dough Molder Hand: CC : 1940 Requested By: BRANDI ACEVES Order Number: [id number] Reading MD: Danny Bee Measurements Intervals [place] Rate: 114 P: 95 AR: 169 QRS: 40 QRSD: 119 T: 138 QT: 322 QTc: 445 Interpretive Statements SINUS TACHYCARDIA WITH FREQUENT VENTRICULAR PREMATURE COMPLEXES Baseline artifact limits interpretation LIFT SCOURER us Brandi CANELA ECG ORDERABLES Final Resu lt [facility] * CORONAVIRUS (COVID 19) (10/03/2024 4:27 PM TOP LIFT SCOURER) CORONAVIRUS SARS COV 2 RNA NEGATIVE NEGATIVE 10/03/2024 5:30 PM TOP LIFT SCOURER [facility] Comment: NEGATIVE RESULTS DO NOT RULE [...] SARS-COV-2. SPECIMEN TYPE NASAL 10/03/2024 4:32 PM TOP LIFT SCOURER [facility] NASAL STRUCTURE / Unknown 10/03/2024 4:27 PM TOP LIFT SCOURER Sarthak Hendrickson MD MICROBIOLOGY - GENERAL ORDERABL ES Final Result [facility] [address] [place] [address], * INFLUENZA A & B (10/03/2024 4:27 PM TOP LIFT SCOURER) SPECIMEN TYPE NASAL 10/03/2024 4:58 PM TOP LIFT SCOURER [facility] INFLUENZA A NEGATIVE NEGATIVE 10/03/2024 5:30 PM TOP LIFT SCOURER [facility] INFLUENZA B NEGATIVE NEGATIVE 10/03/2024 5:30 PM TOP LIFT SCOURER [facility] Comment: Interpretation: Negative for Influenza A [...] NASOPHARYNGEAL SWAB / Unknown 10/03/2024 4:27 PM TOP LIFT SCOURER Sarthak Hendrickson MD MICROBIOLOGY - GENERAL ORDERABL ES Final Result Performing Organization Address [facility] Co de Phone Number [facility] [address] [place] [address], * PROCALCITONIN (PCT) (10/03/2024 4:15 PM TOP LIFT SCOURER) Procalcitonin <0.05 0.00 - 0.49 NG/ML 10/03/2024 5:53 PM TOP LIFT SCOURER [facility] 10/03/2024 4:15 PM TOP LIFT SCOURER Brandi CANELA LABORATORY Final Resu lt Performing Organization Address [facility] Co de Phone Number [facility] [address] [place] [address], * TSH W/REFLEX (10/03/2024 4:15 PM TOP LIFT SCOURER) TSH 0.922 0.358 - 3.74 uIU/ML 10/04/2024 1:37 AM TOP LIFT SCOURER [facility] Comment: HIGH DOSES OF BIOTIN MAY INTERFERE WITH THIS TEST RESULT. CORRELATION TO CLINICAL HISTORY AND PRESENTATION RECOMMENDED. FREE T4 NOT INDICATED 10/03/2024 4:15 PM TOP LIFT SCOURER Lilibeth Manzano APRN LABORATORY Final Resul t Performing Organization Address [facility] Co de Phone Number [facility] [address] [place] [address], * (ABNORMAL) PRO-BRAIN NATRIURETIC PEPTIDE (10/03/2024 4:15 PM TOP LIFT SCOURER) PRO-B TYPE NATRIURETIC PEPTIDE 1,925(H) <450 PG/ML 10/03/2024 5:26 PM TOP LIFT SCOURER [facility] Comment: CUT POINTS ESTABLISHED BY INTERNATIONAL [...] 72% FOR ACUTE CHF. 10/03/2024 4:15 PM TOP LIFT SCOURER Brandi Aceves PA LABORATORY Final Resu lt [facility] [address] [place] [address], [place] [phone] * STREP PNEUMO AG URINE (10/03/2024 4:15 PM TOP LIFT SCOURER) S. PNEUMONIAE URINARY AG NEGATIVE NEGATIVE 10/04/2024 12:04 PM TOP LIFT SCOURER [facility] URINE SPECIMEN OBTAINED BY CLEAN CATCH PROCEDURE / Unknown 10/03/2024 4:15 PM TOP LIFT SCOURER Lilibeth Manzano APRN MICROBIOLOGY - GENERAL JAI SKELTON Final Result [facility] [address] [place] [address], [place] [phone] * LEGIONELLA AG URINE (10/03/2024 4:15 PM TOP LIFT SCOURER) LEGIONELLA ANTIGEN (URINE) NEGATIVE NEGATIVE 10/04/2024 12:04 PM TOP LIFT SCOURER [facility] URINE SPECIMEN / Unknown 10/03/2024 4:15 PM TOP LIFT SCOURER Lilibeth Samuels Jose Juan BRIGHT MICROBIOLOGY - GENERAL ORDMario SKELTON Final Result [facility] [address] [place] [address], [place] [phone] * URINALYSIS, AUTO, COMPLETE (10/03/2024 4:15 PM TOP LIFT SCOURER) SPECIMEN TYPE URINE CLEAN CATCH 10/03/2024 4:19 PM TOP LIFT SCOURER [facility] COLOR (U) LIGHT YELLOW 10/03/2024 5:13 PM TOP LIFT SCOURER [facility] TRANSPARENCY CLEAR 10/03/2024 5:13 PM TOP LIFT SCOURER [facility] SPECIFIC GRAVITY (U) 1.009 1.001 - 1.030 10/03/2024 5:13 PM TOP LIFT SCOURER [facility] U PH 6.5 5.0 - 9.0 10/03/2024 5:13 PM [facility] LEUKOCYTES (U) NEGATIVE NEGATIVE 10/03/2024 5:13 PM [facility] NITRITES NEGATIVE NEGATIVE 10/03/2024 5:13 PM [facility] PROTEIN RANDOM (U) NEGATIVE <30 MG/DL 10/03/2024 5:13 PM [facility] GLUCOSE (U) NORMAL NORMAL MG/DL 10/03/2024 5:13 PM [facility] KETONES MG/DL (U) NEGATIVE NEGATIVE MG/DL 10/03/2024 5:13 PM [facility] UROBILINOGEN NORMAL NORMAL MG/DL 10/03/2024 5:13 PM [facility] BILIRUBIN (U) NEGATIVE NEGATIVE MG/DL 10/03/2024 5:13 PM TOP LIFT SCOURER [facility] BLOOD (U) NEGATIVE NEGATIVE 10/03/2024 5:13 PM TOP LIFT SCOURER [facility] WBC/HPF 2 <6 /HPF 10/03/2024 5:13 PM TOP LIFT SCOURER [facility] RBC/HPF 2 <6 /HPF 10/03/2024 5:13 PM TOP LIFT SCOURER [facility] URINE SPECIMEN OBTAINED BY CLEAN CATCH PROCEDURE / Unknown 10/03/2024 4:15 PM TOP LIFT SCOURER Brandi CANELA URINE ORDERABLES Final Res ult Performing Organization Address City/[facility]/ZIP Co de Phone Number [facility] [address] [place] [address], [place] [phone] * TROPONIN, QUANT (10/03/2024 4:15 PM TOP LIFT SCOURER) TROPONIN I HIGH SENSITIVITY 44 <54 ng/L 10/03/2024 5:26 PM TOP LIFT SCOURER [facility] Comment: HIGH DOSES OF BIOTIN, TROPONIN-SPECIFIC AUTOANTIBODIES, AND ANTIBODY THERAPY CONTAINING HAMA MAY INTERFERE WITH THIS TEST RESULT. CORRELATION TO CLINICAL HISTORY AND PRESENTATION RECOMMENDED. 10/03/2024 4:15 PM TOP LIFT SCOURER Brandi CANELA LABORATORY Final Resu lt Performing Organization Address City/[facility]/ZIP Co de Phone Number [facility] [address] [place] [address], [place] [phone] * PHOSPHORUS, INORGANIC PHOSPHATE (10/03/2024 4:15 PM TOP LIFT SCOURER) PHOSPHORUS 3.4 2.5 - 4.9 MG/DL 10/04/2024 1:37 AM TOP LIFT SCOURER [facility] 10/03/2024 4:15 PM TOP LIFT SCOURER Lilibeth Manzano BICYCLE FITTER LABORATORY Final Resul t [facility] [address] [place] [address], [place] [phone] * MAGNESIUM (10/03/2024 4:15 PM TOP LIFT SCOURER) Pathologist [facility] MAGNESIUM 2.3 1.8 - 2.4 MG/DL 10/04/2024 1:37 AM TOP LIFT SCOURER [facility] Comment:SLIGHT HEMOLYSIS, RE SULT MAY BE AFFECTED. 10/03/2024 4:15 PM TOP LIFT SCOURER Lilibeth Samuels Jose Juan BICYCLE FITTER LABORATORY Final Resul t Performing Organization Address [facility] Co de Phone Number [facility] [address] [place] [address], [place] [phone] * (ABNORMAL) ARTERIAL BLOOD GAS (10/03/2024 4:05 PM TOP LIFT SCOURER) PH ARTERIAL 7.49(H) 7.35 - 7.45 10/03/2024 4:15 PM TOP LIFT SCOURER [facility] PCO2 33.0(L) 35.0 - 45.0 MMHG 10/03/2024 4:15 PM TOP LIFT SCOURER [facility] PO2 90.0 83.0 - 108.0 MMHG 10/03/2024 4:15 PM TOP LIFT SCOURER [facility] TOTAL CO2 ARTERIAL 26.1(H) 19.0 - 24.0 MMOL/L 10/03/2024 4:15 PM TOP LIFT SCOURER [facility] BASE EXCESS 2.2 0.0 - 3.0 MMOL/L 10/03/2024 4:15 PM TOP LIFT SCOURER [facility] O2 SATURATION 98 94.0 - 98.0 % 10/03/2024 4:15 PM TOP LIFT SCOURER [facility] BICARB ARTERIAL 25.1 21.0 - 28.0 MMOL/L 10/03/2024 4:15 PM TOP LIFT SCOURER [facility] CHANDAN TEST CHANDAN TEST PERFORMED 10/03/2024 4:12 PM TOP LIFT SCOURER [facility] O2 ADMIN ARTERIAL 28 10/03/2024 4:12 PM TOP LIFT SCOURER [facility] DRAW SITE ARTERIAL RT RADIAL 10/03/2024 4:12 PM TOP LIFT SCOURER [facility] 10/03/2024 4:05 PM TOP LIFT SCOURER us Brandi CANELA LABORATORY Final Resu lt [facility] [address] [place] [address], * XR CHEST PA+LAT (10/03/2024 3:05 PM TOP LIFT SCOURER) Anatomical Region Laterality Modality Chest Radiographic Angie ging 10/03/2024 3:12 PM TOP LIFT SCOURER Impressions 10/03/2024 3:17 PM TOP LIFT SCOURER =====IMPRESSION:===== 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 Superimposed acute/active airway infection/inflammation is not excluded. Ordered By: BRANDI ACEVES Interpreted By: Sulema Pinto MD, 10/03/2024 3:12 PM Narrative 10/03/2024 3:17 PM TOP LIFT SCOURER [facility] [address] [place], [place] [address] Examination: Chest x-ray 2 view Exam date/time: [...] Procedure Note Sulema Pinto MD - 10/03/[address] [address] Examination: Chest x-ray 2 view Exam date/time: [...] lt * Home Sleep Study - WatchPat ([id number]) (09/22/2024 3:00 PM TOP LIFT SCOURER) Narrative [facility] - 09/22/2024 3:00 PM TOP LIFT SCOURER Diego Freeman MD 09/30/2024 10:28 AM Patient Information First Name: HERIBERTO Last Name: ILEANA ID: [id number] Date: 1940 Age: 84 Gender: Female BMI: [...] (Events per Minute): 4.8 Rev. Printed on:09/30/2024 09/22/2024,[id number],1940,Female *The automatic analysis events or stages have been edited. 539 Page 1 of 2 Sleep Study Report SUMMARY/DIAGNOSIS 1.) Mild Obstructive Sleep Apnea. 2.) Premature beats were noted and minimal atrial fibrillation was suspected during this study. RECOMMENDATIONS Casm[place] treatment option should be discussed with the [...] snoring and other sleep-related issues, such as MANUFACTURER depressants, especially at bedtime. Raw data reviewed and electronically signed by: Diego Freeman on 09/30/2024 10:26:04 AM at 4:26:10PM, [facility] Naeem Grissom MD SLEEP CENTER ORDERABLES Fin al Result [facility] [address] [place] [address], from Last 3 Months Insurance MEDICARE Advance Directives * Full Code (Latest Code Status on File) Date Activated Date Inactivated Comments 10/09/2024 3:14 PM * Full Code Date Activated Date Inactivated Comments 10/04/2024 12:11 AM 10/08/2024 6:04 PM Care Teams Selector Packer Relationship Specialty Start Date End Date Pawan Echevarria MD [address] [facility] [address] [address] PCP - General FAMILY PRACTICE 04/17/23
--- OUTSIDE RECORDS SUMMARY | 2024-12-09 14:15 | XMS_ITS | Encounter Summary ---
Author Organization [facility] Address [address] [place] [address] Phone Care Team Providers Care Home Fire Alarm Installer Name Role Phone Geeta Crisostomo MD Primary Care Provider [phone] Gavin Gross MD Primary Care Provider [phone] Pawan Echevarria MD Primary Care Provider [phone] Encounter Details Date Type Department Care Team [...] on file Legal Sex Female 3:43 AM THREAD CLIPPER Gender Identity Female 02/01/2022 8:55 AM CDT [...] on filedocumented in this encounter Care Teams Home Fire Alarm Installer Relationship Specialty Start Date End Date Geeta Crisostomo MD [address] [place] [address] PCP - General Family Medicine 03/08/18 03/28/22 Gavin Gross MD [address] [place] [address] PCP - General Family Medicine 03/29/22 06/05/23 Pawan Echevarria MD [address] [place] [address] [place] [address] PCP - General Family Medicine 06/06/23 documented as of this encounter
--- OUTSIDE RECORDS SUMMARY | 2024-12-09 14:15 | XMS_ITS | Encounter Summary ---
Author Organization [facility] Address [address] [place] [address] Care Team Providers Care Wellness Educator Name Role Phone Gavin Gross MD Primary Care Provider [phone] Pawan Echevarria MD Primary Care Provider [phone] Encounter Details Date Type Department Care Team (Late Contact Info) Description 03/14/2023 MyChart Message Enc [facility] - [facility] [address] [place], [place] [address] [place], [facility] Provider Air Quality Message Social History Tobacco [...] Sex Assigned at Female 10/03/2024 2:27 PM SOLID WASTE DISPOSAL MANAGER Legal Sex Female 4:16 PM CDT Gender Identity Not on file Sexual Orientation Not on file documented as of this encounter Plan of Treatment Upcoming Encounters Date Type Department Care Team (Late Contact Info) Description 01/14/2025 11:40 AM CDT Office Visit [facility] Multispecialty Care - [facility] [address] [facility] [address] [place] [address] Abdon Flynn MD [facility] [facility] [address] [place] [address] documented as of this encounter Visit Diagnoses Not on filedocumented in this encounter Additional Health Concerns Infection Onset Date Last Indicated Resolved Time COVID-19 Rule Out 10/03/2024 10/03/2024 10/03/2024 5:30 PM SOLID WASTE DISPOSAL MANAGER COVID-19 Rule Out 10/04/2024 10/04/2024 10/04/2024 3:19 AM SOLID WASTE DISPOSAL MANAGER Influenza - Seasonal 10/04/2024 10/04/2024 025 12:32 AM SOLID WASTE DISPOSAL MANAGER Assessment Noted Time PHQ-9 Depression Total Score: 0 12/13/19 22 11:54 AM CDT documented as of this encounter Care Teams Wellness Educator Relationship Specialty Start Date End Date Gavin Gross MD [address] [facility] [address] [place] [address] PCP - General FAMILY PRACTICE 07/13/22 04/16/23 Pawan Echevarria MD [facility] [address] [place] [address] PCP - General FAMILY PRACTICE 04/17/23 documented as of this encounter
--- OUTSIDE RECORDS SUMMARY | 2024-12-09 14:15 | XMS_ITS | Encounter Summary ---
Author Organization [facility] Address [facility] [place] [address] Care Team Providers Care Tenter Feeder Name Role Phone Edilbetro Crisostomo MD Primary Care Provider [phone] Gavin Gross MD Primary Care Provider [phone] Pawan Echevarria MD Primary Care Provider [phone] Encounter Details Date Type Department Care Team (Late st Contact Info) Description 12/03/2020 SaludFÁCIL Message Enc [facility] Medical Group Multispecialty Care - [address], [address] [place] [phone] Vik, [facility] Provider Provider Social History [...] Sex Assigned at Female 10/03/2024 2:27 PM HOSPICE NURSE PRACTITIONER Legal Sex Female 4:16 PM CDT Gender Identity Not on file Sexual Orientation Not on file documented as of this encounter Plan of Treatment Upcoming Encounters Date Type Department Care Team (Late st Contact Info) Description 01/14/2025 11:40 AM CDT Office Visit [facility] Multispecialty Care - [facility] [address] [facility] [place] [address] Abdon Flynn MD [address] [facility] [address] [place] [address] documented as of this encounter Visit Diagnoses Not on filedocumented in this encounter Additional Health Concerns Infection Onset Date Last Indicated Resolved Time COVID-19 Rule Out 10/03/2024 10/03/2024 10/03/2024 5:30 PM HOSPICE NURSE PRACTITIONER COVID-19 Rule Out 10/04/2024 10/04/2024 10/04/2024 3:19 AM HOSPICE NURSE PRACTITIONER Influenza - Seasonal 10/04/2024 10/04/2024 025 12:32 AM HOSPICE NURSE PRACTITIONER documented as of this encounter Care Teams Tenter Feeder Relationship Specialty Start Date End Date Edilberto Crisostomo MD [address] [place] [address] PCP - General FAMILY PRACTICE 12/10/17 07/12/22 Gavin Gross MD [address] [facility] [address] [place] [address] PCP - General FAMILY PRACTICE 07/13/22 04/16/23 Pawan Echevarria MD [address] [facility] [address] [place] [address] PCP - General FAMILY PRACTICE 04/17/23 documented as of this encounter
--- OUTSIDE RECORDS SUMMARY | 2024-12-09 14:15 | XMS_ITS | Encounter Summary ---
Author Organization [facility] Address [facility] [place] [address] Care Team Providers Care Sql Report Developer Name Role Phone Pawan Echevarria MD Primary Care Provider [phone] Encounter Details Date Type Department Care Team (Late st Contact Info) Description 11/18/2024 MyChart Message Enc [facility] Medical Group Multispecialty Care - [facility] [address] [facility] [place] [phone] Abdon Flynn MD [address] [place], [place] [address] [address] [place] [address] Move Up Appointment Social History Tobacco Use [...] materials from doctor or pharmacy Never 10/24/2024 [facility] Utilities Answer Date Recorded In [...] and Family Not on file 10/04/2024 Attends [employer] Not on file 10/04 Active Member [...] Recorded Patient Health Questionnaire-2 Score 2 12/05/[address] [facility] [place] of Occupat ional Health - Occupational Stress [...] any time in the past 12 m [facility], were you homeless or living in a detention (including now)? 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 2:27 PM HANDYMAN Legal Sex Female 4:16 PM CDT Gender [...] Description 01/14/2025 11:40 AM CDT Office Visit [facility] Group Multispecialty Care - [facility] [address] [facility] [place] [address] Abdon Flynn MD [address] [facility] [address] [place] [address] documented as of this encounter Visit Diagnoses Not on filedocumented in this encounter Additional Health Concerns Assessment Noted Time PHQ-9 Depression Total Score: 0 12/13/19 22 11:54 AM CDT documented as of this encounter Care Teams Sql Report Developer Relationship Specialty Start Date End Date Pawan Echevarria MD [address] [facility] [address] [place] [address] PCP - General FAMILY PRACTICE 04/17/23 documented as of this encounter
--- OUTSIDE RECORDS SUMMARY | 2024-12-09 14:15 | XMS_ITS | Clinical Summary ---
Author Organization [facility] Virtual Care Address [address] [place] [address] Phone Care Team Providers Care Reforestation Worker Name Role Phone Pawan Echevarria MD Primary Care Provider [phone] Allergies No known active allergies Medications calcium [...] CMP checked today. - Spoke with her wire brush maker, Dr. Abdon Flynn ([facility] Multispecialty Care [facility]), to discuss the possibility of sparing [...] 81 y.o. 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 8 COPD (chronic obstructive pulmonary disease) Encounters Date Type Department Care Team Description 12/01/2024 Telephone [facility] Medical [facility] Cardiology [address] [place] [address] Damien Plaza MD 10/01/2024 1:15 PM AUTOMOTIVE DESIGN DRAFTER Office Visit [facility] Medical [facility] Cardiology [address] [place] [address] Damien Plaza MD Nonischemic cardiomyopathy (HCC) (Primary [...] on file Legal Sex Female 3:43 AM AUTOMOTIVE DESIGN DRAFTER Gender Identity Female 02/01/2022 8:55 AM CDT Sexual Orientation Straight 02/01/2022 8: 55 AM CDT Obstetrics History Last Filed Vital Signs Vital Sign Reading Time Taken Comments Blood Pressure 150/68 10/01/2024 1:07 PM AUTOMOTIVE DESIGN DRAFTER Pulse 56 10/01/2024 1:07 PM AUTOMOTIVE DESIGN DRAFTER Temperature 36.9 C (98.5 F) 10/04/2022 11:40 AM AUTOMOTIVE DESIGN DRAFTER Respiratory Rate 20 03/18/2024 11:5 3 AM CDT Oxygen Saturation 91% 10/01/2024 1:0 7 PM AUTOMOTIVE DESIGN DRAFTER 2 Liters oxygen Inhaled Oxygen Concentration - - Weight 59.4 kg (131 lb) 10/01/2024 1:07 PM AUTOMOTIVE DESIGN DRAFTER Height 162.6 cm (5' 4 ) 10/01/2024 1:07 PM AUTOMOTIVE DESIGN DRAFTER Body Mass Index 22.49 10/01/2024 1:07 PM AUTOMOTIVE DESIGN DRAFTER Plan of Treatment Health Maintenance Due Date [...] Comments ELECTROCARDIOGRAM REPORT Routine 025 3:58 PM AUTOMOTIVE DESIGN DRAFTER PVC (premature ventricular contraction) from Last 3 Months Results * Electrocardiogram Report (10/01/2024 3:58 PM AUTOMOTIVE DESIGN DRAFTER) us Damien Plaza MD ECG ORDERABLES Final Result from Last 3 Months Insurance MEDICARE FOR LIFE MEDICARE FOR LIFE MEDICARE FOR LIFE Care Teams Reforestation Worker Relationship Specialty Start Date End Date Pawan Echevarria MD [facility] [address] [address] PCP - General Family Medicine 06/06/23
--- OUTSIDE RECORDS SUMMARY | 2024-12-09 14:15 | XMS_ITS | Encounter Summary ---
Author Organization [facility] Address [facility] [place] [address] Care Team Providers Care Processing Talc And Borate Supervisor Name Role Phone Pawan Echevarria MD Primary Care Provider [phone] Encounter Details Date Type Department Care Team (Late st Contact Info) Description 10/03/2024 MyChart Message Enc [facility] Medical Group Multispecialty Care - [facility] [address] [facility] [place] [phone] Abdon Flynn MD [address] [place], [place] [address] [address] [place] [address] Fever/Shortness of Breath Social History Tobacco Use Types Packs/Day Years Used Date Smoking Tobacco: Former Cigarettes 0.3 6 0 02/25/1974 - 02/26/1980 Smokeless Tobacco: Never Alcohol Use Standard Drinks/Week Comments Yes 0 (1 standard drink = 0.6 oz pur e alcohol) minimal rare use [facility] Utilities Answer Date Recorded In the [...] Recorded Patient Health Questionnaire-2 Score 2 12/05/2022 [facility] of Occupat ional Health - Occupational Stress [...] time in the past 12 [facility], were you homeless or living in a detention (including now)? 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 2:27 PM HIMS MANAGER Legal Sex Female 4:16 PM CDT Gender Identity Not on file Sexual Orientation Not on file documented as of this encounter Functional Status documented as of this encounter Mental Status * Question Answer Entry Date Author Status Because of a physical, mental, or emotional condition, do you have serious difficulty concentrating, remembering, or making decisions? No 10/04/2024 5:00 PM HIMS MANAGER Nighat Prado R N Active documented in this encounter Plan of Treatment Upcoming Encounters Date Type Department Care Team (Late st Contact Info) Description 01/14/2025 11:40 AM CDT Office Visit [facility] Medical Group Multispecialty Care - [facility] [address] [facility] [place] [phone] Abdon Flynn MD [address] [place] [address] [address] [place] [address] documented as of this encounter Visit Diagnoses Not on filedocumented in this encounter Additional Health Concerns Infection Onset Date Last Indicated Resolved Time COVID-19 Rule Out 10/03/2024 10/03/2024 10/03/2024 5:30 PM HIMS MANAGER COVID-19 Rule Out 10/04/2024 10/04/2024 10/04/2024 3:19 AM HIMS MANAGER Influenza - Seasonal 10/04/2024 10/04/2024 025 12:32 AM HIMS MANAGER Assessment Noted Time PHQ-9 Depression Total Score: 0 12/13/19 22 11:54 AM CDT documented as of this encounter Care Teams Processing Talc And Borate Supervisor Relationship Specialty Start Date End Date Pawan Echevarria MD [address] [facility] [address] [address] PCP - General FAMILY PRACTICE 04/17/23 documented as of this encounter
--- OUTSIDE RECORDS SUMMARY | 2024-12-09 14:15 | XMS_ITS | Encounter Summary ---
Author Organization [facility] Address [facility] [place] [address] Care Team Providers Care Elevator Inspector Name Role Phone Edilberto Crisostomo MD Primary Care Provider [phone] Gavin Gross MD Primary Care Provider [phone] Pawan Echevarria MD Primary Care Provider [phone] Encounter Details Date Type Department Care Team (Late st Contact Info) Description 03/22/[address] [facility] Mult[facility] - [address], [address] [place] [id number] Abdon Flynn MD [address] [place] [address] [address] [place] [address] Referral Request Social History Tobacco Use Types [...] Sex Assigned at Female 10/03/2024 2:27 PM COMPLEX CASE MANAGER Legal Sex Female 4:16 PM CDT Gender Identity Not on file Sexual Orientation Not on file documented as of this encounter Plan of Treatment Upcoming Encounters Date Type Department Care Team (Late st Contact Info) Description 01/14/2025 11:40 AM CDT Office Visit [facility] - [facility] [address] [facility] [address] [place] [address] Abdon Flynn MD [address] [facility] [address] [place] [address] documented as of this encounter Visit Diagnoses Not on filedocumented in this encounter Additional Health Concerns Infection Onset Date Last Indicated Resolved Time COVID-19 Rule Out 10/03/2024 10/03/2024 10/03/2024 5:30 PM COMPLEX CASE MANAGER COVID-19 Rule Out 10/04/2024 10/04/2024 10/04/2024 3:19 AM COMPLEX CASE MANAGER Influenza - Seasonal 10/04/2024 10/04/2024 025 12:32 AM COMPLEX CASE MANAGER documented as of this encounter Care Teams Elevator Inspector Relationship Specialty Start Date End Date Edilberto Crisostomo MD [address] [place] [address] PCP - General FAMILY PRACTICE 12/10/17 07/12/22 Gavin Gross MD [address] [facility] [address] [place] [address] PCP - General FAMILY PRACTICE 07/13/22 04/16/23 [place] [address] [place] [address] [address] [place] [address] PCP - General FAMILY PRACTICE 04/17/23 documented as of this encounter
--- OUTSIDE RECORDS SUMMARY | 2024-12-09 14:15 | XMS_ITS | Referral Summary ---
Author Organization [facility] Virtual Care Address [address] [place] [phone] Phone Care Team Providers Care Pigment And Lacquer Mixer Name Role Phone Pawan Echevarria MD Primary Care Provider [phone] Encounters Date Type Department Care Team Description 12/01/2024 Telephone [facility] Medical [facility] Cardiology [address] [facility] [address] [place] [address] Damien Plaza MD 10/01/2024 1:15 PM HARPOON ENGAGEMENT PLANNING OPERATOR Office Visit [facility] Cardiology [address] [facility] [address] [place] [address] Damien Plaza MD Nonischemic cardiomyopathy (HCC) [...] CMP checked today. - Spoke with her bricklayer supervisor, Dr. Abdon Flynn ([facility]), to discuss the possibility of sparing [...] 81 y.o. 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 8 COPD (chronic obstructive pulmonary [...] on file Legal Sex Female 3:43 AM HARPOON ENGAGEMENT PLANNING OPERATOR Gender Identity Female 02/01/2022 8:55 AM CDT Sexual Orientation Straight 02/01/2022 8: 55 AM CDT Last Filed Vital Signs Vital Sign Reading Time Taken Comments Blood Pressure 150/68 10/01/2024 1:07 PM HARPOON ENGAGEMENT PLANNING OPERATOR Pulse 56 10/01/2024 1:07 PM HARPOON ENGAGEMENT PLANNING OPERATOR Temperature 36.9 C (98.5 F) 10/04/2022 11:40 AM HARPOON ENGAGEMENT PLANNING OPERATOR Respiratory Rate 20 03/18/2024 11:5 3 AM CDT Oxygen Saturation 91% 10/01/2024 1:0 7 PM HARPOON ENGAGEMENT PLANNING OPERATOR 2 Liters oxygen Inhaled Oxygen Concentration - - Weight 59.4 kg (131 lb) 10/01/2024 1:07 PM HARPOON ENGAGEMENT PLANNING OPERATOR Height 162.6 cm (5' 4 ) 10/01/2024 1:07 PM HARPOON ENGAGEMENT PLANNING OPERATOR Body Mass Index 22.49 10/01/2024 1:07 PM HARPOON ENGAGEMENT PLANNING OPERATOR Plan of Treatment Not on file Procedures Procedure Name Priority Date/Time Associated Diagnosis Comments ELECTROCARDIOGRAM REPORT Routine 025 3:58 PM HARPOON ENGAGEMENT PLANNING OPERATOR PVC (premature ventricular contraction) from Last 3 Months Results * Electrocardiogram Report (10/01/2024 3:58 PM HARPOON ENGAGEMENT PLANNING OPERATOR) Damien Plaza MD ECG ORDERABLES Final Result from Last [place] [address] MEDICARE [facility] Address: [address] [address] [place] [address] FOR LIFE MEDICARE FOR LIFE MEDICARE FOR LIFE Care Teams Pigment And Lacquer Mixer Relationship Specialty Start Date End Date Pawan Echevarria MD [address] [place] [address] [address] PCP - General Family Medicine 06/06/23
--- OUTSIDE RECORDS SUMMARY | 2024-12-09 14:15 | XMS_ITS | Data Portability ---
Author Organization [facility] Telehealth (patients home) Address [address] [place] [address] Assessment Encounter Date Assessment Date Assessment LastModified by Organization Details LastModified Time 08/28/2023 08/28/2023 Patient evaluated for depressive and anxiety disorder. History and exam indicate MDD/ RD. I recommend restarting zoloft 25mg daily. Discussed goals of treatment and effectiveness of current treatment. Discussed follow up and orders indicated below. FAce to face 90 minutes [email or web address] Not available 08/28/2023 22:09:45 09/03/2024 09/03/2024 Met with Nora today for follow up on her mod MDD and RD PHQ9=10 GAD7= 13 mod Not available 09/03/2024 20:31:20 10/01/2024 10/01/2024 Met with Nora oden to follow-up on Zoloft PHQ-[address]-7 15 severe [email or web address] Not available 10/01/2024 13:30:17 Plan of Treatment Reminders Order Date Submit Date Provider Last Modified By Organization Details Last Modified Time Details Appointments Psychiatr ic Follow up 2024 01:00P Abril Neumann Not available Not available Not available Lab None recorded. Referral None recorded. Procedures None recorded. Surgeries None recorded. Imaging None recorded. Medication Orders Zoloft 50 mg tablet 2024 025 [id number], [address] [facility], [place], [id number], 10/01/2024 13:29:57 Zoloft 50 mg tablet 2023 024 [facility][id number], [address] [facility], [place], [place], [id number], 09/03/2024 15:01:16 Zoloft 50 mg tablet 2022 024 [facility] #[id number], [address] [facility], [place], [place], [id number], 09/03/2024 14:31:19 Zoloft 25 mg tablet 2022 023 [email or web address] [id number], [address] [facility], [place], [place], [id number], 09/03/2024 14:30:55 Patient TargetsNo targets recorded. Patient Instructions Encounter Date Encounter Id Patient Instructions Last Modified By Organization Details Last Modified Time 08/28/2023 [id number] recommend returning to therapy May benefit from grief support groups. rtc 2 weeks [email or web address] Not available 08/28/2023 16:21:39 Reason for Referral None Reported. Problems Name Problem SNOMED Code Status Onset Date Resolution Date Notes Provider Name and Address Organization Details Recorded Time Generalized anxiety disorder 80676485 Active 2022 Selam Neumann CNM, [facility] [address], [place], [address], [facility] 16:13:02 Anxiety 16605951 Active 2022 Sel[facility] Neumann CN[facility], [facility] [address], [place], [address], [facility] 13:22:24 Mild recurrent major depression 32325941 Active 2022 Selam Neumann CNM, [facility] [address], [place], [address], [facility] 13:22:45 Increased blood pressure 24156171 Active 2024 Selam Neumann CNM, [facility] [address], [place], [address], [facility] 5 13:28:28 Depressive disorder 42700609 Active 2022 [facility] 3 14:08:50 Bronchiectasi s 22354113 Active 2022 [facility] 3 14:15:47 Moderate recurrent major depression 51529235 Active 2022 Selam Neumann CNM, [facility] [address], [place], [address], [facility] 3 16:12:57 Problem Notes None recorded. Procedures Surgical History Date Name Laterality Status Provider Name and Address Organization Details Recorded Time 08/21/20 05 Partial Hysterectomy completed [facility] 08/28/2023 14:18:29 biopsy of breast completed Maddie Gonzalez [facility] 09/03/2024 14:31:54 partial hip replacement by prosthesis completed [facility] 08/28/2023 14:18:05 Appendectomy completed [facility] 08/28/2023 14:18:46 Imaging Results None recorded. Procedure [...] Updated DateTime 3 162.56 cm 22.6 kg/m2 38066.0 4 g 84 /min 124 mm[Hg] 64 mm[Hg] Mark Douglas [facility] 3 14:11:31 Date Recorded Body height Body mass index (BMI) Body weight Heart rate Systolic blood pressure Diastolic blood pressure Provider Name and Address Organization Details Last Updated DateTime 3 162.56 cm 22.5 kg/m2 87848.6 g 73 /min 151 mm[Hg] 80 mm[Hg] Selam Neumann CNM, [facility] [address], [place], [address], [facility] 3 13:11:52 Date Recorded Body height Body mass index (BMI) Body weight Heart rate Systolic blood pressure Diastolic blood pressure Provider Name and Address Organization Details Last Updated DateTime 4 162.56 cm 23 kg/m2 16103.3 8 g 49 /min 121 mm[Hg] 70 mm[Hg] aMddie Gonzalez [facility] 4 14:30:09 Date Recorded Body height Body mass index (BMI) Body weight Heart rate Systolic blood pressure Diastolic blood pressure Provider Name and Address Organization Details Last Updated DateTime 5 162.56 cm 22.7 kg/m2 11056.1 9 g 92 /min 177 mm[Hg] 91 mm[Hg] Maddie Gonzalez [facility] 5 12:15:14 Date Recorded Heart rate Systolic blood pressure Diastolic blood pressure Provider Name and Address Organization Details Last Updated DateTime 10/01/2024 80 /min 158 mm[Hg] 78 mm[Hg] Selam Neumann CNM, [facility] [address], [place], [address], [facility] 10/01/2024 13:07:36 Social History Question Answer Notes LastModified by Organizat [employer] Details LastModified Time Tobacco Smoking Status Former Smoker [facility] 08/28/2023 14:22:30 What Is Your [...] Anxious, Or Unable To Sleep At Night)? [id number] Information not available 08/28/2023 Do You Use [...] CNM, PMP- Main Office [address] [place] [address] 08/28/2023 14:01:40 08/28/2023 16:04:28 Moderate recurrent major depression 25275590 F33.1 restart zoloft 25mg daily, encouraged to take at bedtime. discussed can cause some gi disturbanc e but usually does not last longer than a few weeks Generalize d anxiety disorder 81123301 F41.1 start zoloftcont inue xanax as needed- prescribed by Dr Echevarria 1461 Selam Neumann CNM, [facility] Main Office [address] [place] [address] 09/11/2023 12:02:44 09/11/2023 13:01:59 Anxiety 32033949 F41.9 continue Xanax as needed, as prescribed by pcp Mild recur rent major depression 31483610 F33.0 increase zoloft to 50mg dailyencou raged getting into grief [facility] 3 weeks 4794 Selam Neumann CNM, [facility] Main Office [address] [place] [address] 09/03/2024 14:24:18 09/05/2024 13:09:29 Anxiety 50588183 F41.9 continue Xanax as needed, as prescribed by pcp Moderate r ecurrent major depression 13494681 F33.1 increase zoloft to 50mg daily, encouraged to take at bedtime. discussed can cause some gi disturbanc e but usually does not last longer than a few weeksrtc 4 weeksencou rage therapy weekly- starting back to therapy with FRANCISCO 5098 Selam Neumann CNM, [facility] Main Office [address] [place] [address] 10/01/2024 12:12:19 10/01/2024 15:35:02 Moderate recurrent major depression 37960769 F33.1 continue zoloft 50mg daily,rtc 3 monthsenco urage therapy weekly- starting with new therapist next week Anxiety 23516590 F41.9 continue Xanax as needed, as prescribed by pcp Increased blood pressure 70698798 R03.0 bp 177/91 on arrival to office. [...] Huerta Member ID Guarantor Name 08/28/2023 1 [place] (MED[place]ARE[place] Nora Tejeda [id number] Nora Tejeda 09/11/2023 1 [place] Nora Tejeda [id number] Nora Tejeda 09/03/2024 1 MEDICARE-[place] (MEDICARE) Nora Tejeda [id number] Nora Tejeda 09/03/2024 2 FOR LIFE () Nora Tejeda [id number] Nora Tejeda 10/01/2024 1 MEDICARE-[place] (MEDICARE) Nora Tejeda [id number] Nora Tejeda 10/01/2024 2 FOR LIFE () Nora Tejeda [id number] Nora Tejeda Notes Date Note Type Note [...] VH. Energy is good. Selam Neumann CNM, [facility] [address], [place], [address], [facility] 08/28/2023 22:20:29 09/11/2023 text/html Met with Nora [...] VH. Energy is good. Selam Neumann CNM, [facility] [address], [place], [address], [facility] 09/11/2023 13:44:31 09/03/2024 text/html Met with Nora [...] due to moving in with her daughter Tnia's home and needing lots of help. Does admit to having feelings of hope, they are all really good to me . Appetite is bad, but still eating 3 meals a day. Denies isolating self. Went to [facility] sun[facility]. Sleep- No problems falling or staying asleep. Takes Xanax prior to bedtime. Always wakes early in am. Denies any SI or Hi. Denies any AH or VH. Getting back into therapy with FRANCISCO. Selam Neumann CNM, [facility]- [address], [place], [address], [facility] 09/03/2024 20:45:26 10/01/2024 text/html Met with Nora [...] and will discuss that further with her bobbin drier today. Nora denies any SI or HI. Denies any auditory hallucinations or visual hallucinations. Starting with a new therapist next week Roxana [place]. Selam Neumann CNM, [facility] [address], [place], [address], [facility] 10/01/2024 13:30:53 OBGyn Episode No OBEpisode recorded.
--- OUTSIDE RECORDS SUMMARY | 2024-12-09 14:15 | XMS_ITS | Clinical Summary ---
Author Organization [facility] Negra Priestloga Address [address] [place] [address] Care Team Providers Care Script Manager Name Role Phone Pawan Echevarria MD Primary Care Provider [phone] Allergies Active Allergy Reactions Criticality Noted Date [...] Description 12/01/2024 1:15 PM CDT Office Visit [facility] Oncology and Hematology - [place] [address] [place] [address] Warren Vaughn MD Abnormal mammogram of left breast (Primary Dx); Malignant neoplasm of left breast in female, estrogen receptor positive, unspecified site of breast ([facility]) 11/04/2024 External Device Data [facility] ABSTRACTION Provider, Abstract 10/09/2024 External Device Data [facility] ABSTRACTION Provider, Abstract 10/08/2024 External Device Data [facility] ABSTRACTION Provider, Abstract 10/07/2024 External Device Data ST[facility] ABSTRACTION Provider, Abstract 10/03/2024 Orders Only [facility] [address] [place] [address] Warren Vaughn MD 10/02/2024 Orders Only [facility] Oncology and Hematology - [place] [address] [place] [address] Warren Vaughn MD from Last 3 Months [...] 12/15/2024 4:00 PM CDT Telephone Check Up [facility] Oncology and Hematology - [place] [address] [facility] [address] [place] [address] Warren Vaughn MD [address] [facility] [address] [place] [address] Health Maintenance Due Date Last [...] ANTIGEN 15-3 Routine 10/03/2024 2 :11 PM PROCESS IMPROVEMENT MANAGER CBC WITH DIFFERENTIAL Routine 10/01/2024 3:09 PM PROCESS IMPROVEMENT MANAGER COMPREHENSIVE METABOLIC PANEL Routine 10/01/2024 11:45 AM PROCESS IMPROVEMENT MANAGER from Last 3 Months Results * CANCER ANTIGEN 15-3 (10/03/2024 2:11 PM PROCESS IMPROVEMENT MANAGER) Blood us Warren Vaughn MD CHEMISTRY ORDERABLES Final Resu lt * CBC WITH DIFFERENTIAL (10/01/2024 3:09 PM PROCESS IMPROVEMENT MANAGER) Blood us Warren Vaughn MD HEMATOLOGY ORDERABLES Final Res ult * COMPREHENSIVE METABOLIC PANEL (10/01/2024 11:45 AM PROCESS IMPROVEMENT MANAGER) Blood us Warren Vaughn MD CHEMISTRY ORDERABLES Final Resu lt from Last 3 Months Insurance MEDICARE PART A AND B [employer] Care Teams Script Manager Relationship Specialty Start Date End Date Pawan Echevarria MD [address] [place] [phone] PCP - General Family Practice 11/29/23
== END 2024-12-09 12:12 | disposition home or self-care (01) ==
PROVIDERS: PCP Family Medicine; Visit Provider Surgery
DX: C50.912 Malignant neoplasm of unspecified site of left female breast (principal); C77.3 Secondary and unspecified malignant neoplasm of axilla and upper limb lymph nodes; M89.8X8 Other specified disorders of bone, other site; S22.050A Wedge compression fracture of T5-T6 vertebra, initial encounter for closed fracture; S22.060A Wedge compression fracture of T7-T8 vertebra, initial encounter for closed fracture; X58.XXXA Exposure to other specified factors, initial encounter
CPT/HCPCS: 78815; A9552

== ENCOUNTER 2024-12-15 11:49 | Inpatient (IN) | payer MEDICARE, OTHER, SELFPAY ==
[2024-12-15] VITALS (25 sets, daily range): BP systolic 116–161; BP diastolic 47–90; PULSE 72–95; RESP 14–30; TEMP 36.2–38.4; O2SAT 88–100; BMI 23.8
--- NOTE | ~2024-12-15 | XR_ITS ---
EXAMINATION: XR wrist LT min 3V DATE: 12/15/2024 12:50 INDICATION: Left wrist pain. TECHNIQUE: 3 views of left wrist were obtained. COMPARISON: None. FINDINGS: Alignment is normal. There is a nondisplaced avulsion fracture of ulnar styloid. There is a n age-indeterminate nondisplaced fracture of radial styloid. There is mild osteoarthritis of triscaph e joint and severe osteoarthritis of first carpometacarpal joint. There is a small bone fragment dors al to the carpus on the lateral view. There is soft tissue swelling is noted. IMPRESSION: 1. Nondisplaced avulsion fractures of the ulnar styloid. 2. Age-indeterminate nondisplaced fracture of radial styloid. 3. Small bone fragment dorsal to the carpus on the lateral view, which may be an avulsion fracture of dorsal pole of triquetrum. 4. Polyarticular osteoarthritis. Reviewed, dictated and finalized at location A. IMPRESSION: 1. Nondisplaced avulsion fractures of the ulnar styloid. 2. Age-indeterminate nondisplaced fracture of radial styloid. 3. Small bone fragment dorsal to the carpus on the lateral view, which may be a n avulsion fracture of dorsal pole of triquetrum. 4. Polyarticular osteoarthritis.
--- NOTE | ~2024-12-15 | CT_ITS ---
History: Altered mental status PROCEDURE: CT head without contrast. COMPARISON: None TECHNIQUE: Axial imaging of the head performed from the skull base to the vertex without IV contrast. Sagittal a nd coronal reformations obtained. DLP: 681 mGy-cm FINDINGS: The ventricles are normal in size, shape and position. There is no mass, mass effect or midline shift. There is no abnormal extra-axial fluid collection or intracranial hemorrhage. Visualized paranasal sinuses are clear. The mastoid air cells are well aerated. No acute displaced fractures within the overlying cranium. Impression: No acute intracranial hemorrhage or suspicious mass effect. Reviewed, dictated and finalized at location A. Impression: No acute intracranial hemorrhage or suspicious mass effect.
--- NOTE | ~2024-12-15 | XR_ITS ---
XR chest 1V portable 12/15/2024 12:49 Indication: Shortness of breath Procedure: AP portable chest Comparison: 12/03/2024 Findings: Cardiomegaly with diffuse bilateral airspace disease. Small right pleural effusion. There i s no pneumothorax. No acute osseous abnormality. Impression: 1: Diffuse bilateral airspace disease which may represent edema or pneumonia. Reviewed, dictated and finalized at location A. Impression: 1: Diffuse bilateral airspace disease which may represent edema or pneumonia.
--- NOTE | ~2024-12-15 | XR_ITS ---
Portable chest x-ray Comparison: 12/15/2024 Clinical History: CHF Findings: There is probable mild bibasilar pulmonary edema and minimal pleural effusions, with under lying COPD pattern. Cardiomediastinal silhouette is stable. Bones and soft tissues are unremarkable. Impression: Probable mild bibasilar pulmonary edema and minimal pleural effusions. Underlying COPD pattern. Reviewed, dictated and finalized at location . Impression: Probable mild bibasilar pulmonary edema and minimal pleural effusions. Underlying COPD pattern.
--- NOTE | 2024-12-15 11:53 | ECG_ITS ---
Test Date: 2024-12-15 11:58:18 Measurements Intervals [place] Rate: 75 P: 0 HI: 0 QRS: -26 QRSD: 162 T: 142 QT: 397 QTc: 444 Interpretive Statements NORMAL SINUS RHYTHM WITH PREMATURE ATRIAL CONTRACTIONS LEFT BUNDLE BRANCH BLOCK [120+ ms QRS DURATION, 80+ ms Q/S IN V1/V2, 85+ ms R IN I/aVL/V5/V6] ABNORMAL ECG Electronically Signed On 12-15-2024 14:05:44 CDT by Winston Tapia M.D.
--- NOTE | 2024-12-15 11:59 | PC.NURSE ---
Pt. daughter in [place]. CARMEN Fernando notified that daughter is here, per daughter request.
[2024-12-15 12:18] LABS: Basophils Absolute Auto 0.1 K/mm3 (0.0-0.1); Basophils Percent Auto 0.4 % (0.2-1.2); Eosinophils Percent Auto 0.3 % (0-4.4); Hematocrit 44.8 % (37.0-47.0); Hemoglobin 13.4 g/dL (12.0-15.0); Immature Granulocyte Absolute 0.21 K/mm3 (0.00-0.031); Immature Granulocyte Percent A 1.5 % (0-0.5); Lymphocytes Absolute Auto 1.28 K/mm3 (0.9-3.2); Lymphocytes Percent Auto 9.3 % (18.3-44.2); Mean Corpuscular HGB Conc 29.9 g/dl (32-36); Mean Corpuscular Hemoglobin 29.2 pg (26-34); Mean Corpuscular Volume 97.6 fl (80-100); Mean Platelet Volume 9.7 fl (7.4-10.4); Monocytes Absolute Auto 1.3 K/mm3 (0.1-0.6); Monocytes Percent Auto 9.3 % (2.6-8.5); Neutrophils Absolute Auto 10.9 K/mm3 (1.3-6.7); Neutrophils Percent Auto 79.2 % (45.5-73.1); Platelet Count Result 254 k/mm3 (150-375); Red Blood Count 4.59 M/mm3 (4.2-5.4); Red Cell Distribution Width 14.6 % (11.5-14.5); White Blood Count 13.8 K/mm3 (4.5-10.0)
[2024-12-15 12:20] LABS: Add Urine Microscopic? NO; Appearance Urine Clear (Clear); Bilirubin Urine Negative (Negative); Blood Urine Negative (Negative); Color Urine Yellow (Yellow); Glucose Urine UA 3+ mg/dL (Negative); Ketones Urine Negative (Negative); Leukocyte Esterase Ur Negative LEU/UL (Negative); Nitrate Urine Negative (Negative); Protein Urine Negative (Negative); Specific Grav Ur 1.025 (1.001-1.035); Urobilinogen Urine 0.2 mg/dL (<2.0); pH Urine 5.5 (5.0-9.0)
[2024-12-15 12:29] LABS: Lactic Acid Reflex 0.8 mmol/L (0.7-2.0)
[2024-12-15 12:30] LABS: Alanine Aminotransferase 39 U/L (6-35); Albumin Level 3.9 g/dL (3.5-5.1); Alkaline Phosphatase 100 U/L (38-126); Anion Gap 6 mmol/L (4-12); Aspartate Amino Transferase 42 U/L (14-36); Bilirubin,Total 0.7 mg/dL (0.2-1.3); Blood Urea Nitrogen 20 mg/dL (7-17); Calcium 8.9 mg/dL (8.4-10.2); Carbon Dioxide 34 mmol/L (22-30); Chloride 95 mmol/L (98-107); Estimated CRCL calculation 48 ml/min; Estimated Glomerular Filt Rate > 60; Glucose 103 mg/dL (65-110); Potassium 4.8 mmol/L (3.4-5.0); Sodium 135 mmol/L (137-145)
[2024-12-15 12:32] LABS: Prothrombin Time 13.3 Seconds (11.1-14.7)
[2024-12-15 12:34] LABS: Partial Thromboplastin Time 23.8 Seconds (22.3-36.8)
[2024-12-15 12:44] LABS: Anisocytosis 1+; Platelet Estimate Adequate (Adequate); Schistocytes None Seen
[2024-12-15 12:59] LABS: Influenza A QL RT-PCR Negative (Negative); Influenza B QL RT-PCR Negative (Negative); RSV RNA, RT-PCR Negative (Negative); SARS-CoV-2 RNA PCR Negative (Negative)
[2024-12-15 13:41] LABS: Carboxyhemoglobin 1.4 % THb (0-2.0); Fractional Inspired Oxygen 30 %; HCO3 ABG 36.3 mEq/l (22.0-26.0); Methemoglobin ABG 0.9 %THb (0-1.5); Reduced Hemoglobin 73.2 %THb (0-5.0); Total Hemoglobin 12.8 g/dL (12.0-18.0)
--- OUTSIDE RECORDS SUMMARY | 2024-12-15 13:48 | XMS_ITS | Referral Summary ---
Author Organization [facility] Virtual Care Address [address] [place] [phone] Phone Care Team Providers Care Bulk Sealer Operator Name Role Phone Pawan Echevarria MD Primary Care Provider [phone] Encounters Date Type Department Care Team Description 12/01/2024 Telephone [facility] Medical [facility] Cardiology [address] [facility] [address] [place] [phone] Damien Plaza MD 10/01/2024 1:15 PM PRODUCTION SANITIZER Office Visit [facility] Cardiology [address] [facility] [address] [place] [phone] Damien Plaza MD Nonischemic cardiomyopathy (HCC) [...] CMP checked today. - Spoke with her polytechnic teacher, Dr. Abdon Flynn ([facility] - [facility]), to discuss the possibility of [...] 81 y.o. 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 8 COPD (chronic obstructive pulmonary [...] on file Legal Sex Female 3:43 AM PRODUCTION SANITIZER Gender Identity Female 02/01/2022 8:55 AM CDT Sexual Orientation Straight 02/01/2022 8: 55 AM CDT Last Filed Vital Signs Vital Sign Reading Time Taken Comments Blood Pressure 150/68 10/01/2024 1:07 PM PRODUCTION SANITIZER Pulse 56 10/01/2024 1:07 PM PRODUCTION SANITIZER Temperature 36.9 C (98.5 F) 10/04/2022 11:40 AM PRODUCTION SANITIZER Respiratory Rate 20 03/18/2024 11:5 3 AM CDT Oxygen Saturation 91% 10/01/2024 1:0 7 PM PRODUCTION SANITIZER 2 Liters oxygen Inhaled Oxygen Concentration - - Weight 59.4 kg (131 lb) 10/01/2024 1:07 PM PRODUCTION SANITIZER Height 162.6 cm (5' 4 ) 10/01/2024 1:07 PM PRODUCTION SANITIZER Body Mass Index 22.49 10/01/2024 1:07 PM PRODUCTION SANITIZER Plan of Treatment Not on file Procedures Procedure Name Priority Date/Time Associated Diagnosis Comments ELECTROCARDIOGRAM REPORT Routine 025 3:58 PM PRODUCTION SANITIZER PVC (premature ventricular contraction) from Last 3 Months Results * Electrocardiogram Report (10/01/2024 3:58 PM PRODUCTION SANITIZER) Damien Plaza MD ECG ORDERABLES Final Result from Last 3 [place] [address] MEDICARE FOR LIFE MEDICARE FOR LIFE MEDICARE FOR LIFE Care Teams Bulk Sealer Operator Relationship Specialty Start Date End Date Pawan Echevarria MD [address] [place] [address] [address] PCP - General Family Medicine 06/06/23
--- OUTSIDE RECORDS SUMMARY | 2024-12-15 13:48 | XMS_ITS | Encounter Summary ---
Author Organization [facility] Address formerly [facility] [place] [address] Care Team Providers Care Chief Cloth Finishing Range Operator Name Role Phone Edilberto Crisostomo MD Primary Care Provider [phone] Gavin Gross MD Primary Care Provider [phone] Pawan Echevarria MD Primary Care Provider [phone] Encounter Details Date Type Department Care Team (Late st Contact Info) Description 12/03/2020 Stripe Message Enc [facility] Mult[facility]pec[facility] Care - [address], [address] [place] [phone] Vik, [facility] Provider Provider Social History Tobacco [...] Sex Assigned at Female 10/03/2024 2:27 PM PHYSICIAN OFFICE ASSISTANT Legal Sex Female 4:16 PM CDT Gender Identity Not on file Sexual Orientation Not on file documented as of this encounter Plan of Treatment Upcoming Encounters Date Type Department Care Team (Late st Contact Info) Description 12/24/2024 2:00 PM CDT Office Visit [facility] - [facility] [address] [facility] [address] [place] [address] Abdon Flynn MD [address] [facility] [address] [place] [address] documented as of this encounter Visit Diagnoses Not on filedocumented in this encounter Additional Health Concerns Infection Onset Date Last Indicated Resolved Time COVID-19 Rule Out 10/03/2024 10/03/2024 10/03/2024 5:30 PM PHYSICIAN OFFICE ASSISTANT COVID-19 Rule Out 10/04/2024 10/04/2024 10/04/2024 3:19 AM PHYSICIAN OFFICE ASSISTANT Influenza - Seasonal 10/04/2024 10/04/2024 025 12:32 AM PHYSICIAN OFFICE ASSISTANT documented as of this encounter Care Teams Chief Cloth Finishing Range Operator Relationship Specialty Start Date End Date Edilberto Crisostomo MD [address] [place] [address] PCP - General FAMILY PRACTICE 12/10/17 07/12/22 Gavin Gross MD [address] [facility] [address] [place] [address] PCP - General FAMILY PRACTICE 07/13/22 04/16/23 Pawan Echevarria MD [address] [facility] [address] [place] [address] PCP - General FAMILY PRACTICE 04/17/23 documented as of this encounter
--- OUTSIDE RECORDS SUMMARY | 2024-12-15 13:48 | XMS_ITS | Encounter Summary ---
Author Organization [facility] Address [facility] [place] [address] Care Team Providers Care Electric Truck Operator Name Role Phone Pawan Echevarria MD Primary Care Provider [phone] Encounter Details Date Type Department Care Team (Late st Contact Info) Description 11/18/2024 MyChart Message Enc [facility] - [facility] [address] [facility] [address] [place] [phone] Abdon Flynn MD [address] [place], [place] [address] [address] [place] [address] Move Up Appointment Social History Tobacco Use [...] materials from doctor or pharmacy Never 10/24/2024 [facility] Utilities Answer Date Recorded In the [...] Recorded Patient Health Questionnaire-2 Score 2 12/05/2022 [facility] [employer] [facility] - Occupational Stress [...] Sex Assigned at Female 10/03/2024 2:27 PM LITIGATION ATTORNEY ASSOCIATE Legal Sex Female 4:16 PM CDT Gender [...] Description 12/24/2024 2:00 PM CDT [facility] [address] [facility] [place] [address] Abdon Flynn MD [address] [facility] [address] [place] [address] documented as of this encounter Visit Diagnoses Not on filedocumented in this encounter Additional Health Concerns Assessment Noted Time PHQ-9 Depression Total Score: 0 12/13/19 22 11:54 AM CDT documented as of this encounter Care Teams Electric Truck Operator Relationship Specialty Start Date End Date Pawan Echevarria MD [address] [facility] [address] [place] [address] PCP - General FAMILY PRACTICE 04/17/23 documented as of this encounter
--- OUTSIDE RECORDS SUMMARY | 2024-12-15 13:48 | XMS_ITS | Encounter Summary ---
Author Organization [facility] Address [address] [place] [address] Phone Care Team Providers Care Electrician'S Helper Name Role Phone Geeta Crisostomo MD Primary Care Provider [phone] Gavin Gross MD Primary Care Provider [phone] Pawan Echevarria MD Primary Care Provider [phone] Encounter Details Date Type Department Care Team [...] on file Legal Sex Female 3:43 AM RN SURGERY Gender Identity Female 02/01/2022 8:55 AM CDT [...] on filedocumented in this encounter Care Teams Electrician'S Helper Relationship Specialty Start Date End Date Geeta Crisostomo MD [address] [place] [address] PCP - General Family Medicine 03/08/18 03/28/22 Gavin Gross MD [address] [place] [address] PCP - General Family Medicine 03/29/22 06/05/23 Pawan Echevarria MD [address] [place] [address] [place] [address] PCP - General Family Medicine 06/06/23 documented as of this encounter
--- OUTSIDE RECORDS SUMMARY | 2024-12-15 13:48 | XMS_ITS | Clinical Summary ---
Author Organization [facility] Address Formerly [facility] [place] [address] Care Team Providers Care Rough Patcher Name Role Phone Pawan Echevarria MD Primary Care Provider [phone] Allergies Active Allergy Reactions Criticality Noted Date Comments Ipratropium Unknown 07/04/2018 Levofloxacin Hallucinations Medium 10/06/2024 [place]'s Pain Patient reported during admission 09/2024 after [...] KitIndications:Br onchiectasis without complication (CMS/HCC [facility]) 1 each by Does not apply route every 4 (four) hours as needed. 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 COPD (chronic obstructive pu lmonary disease) ([facility]) 03/05/2018 History of Pseudomonas pneumonia 01/27/2018 Pleural thickening 01/27/2018 Bacterial infection 12/13/2017 Chronic cough 12/10/2017 Asthma exacerbation ([facility]CC) 12/10/2017 Wheeze 12/10/2017 Resolved Problems Problem Noted Date Diagnosed Date Resolved Date Encounter for preventive health examination 11/07/2017 05/28/2020 Encounters Date Type Department Care Team Description 12/11/2024 Scan [facility] INFO SRVCS Scanned, Doc Med Group 11/18/2024 MyChart Message Enc [facility] Medical [facility] Multispecialty Care - [facility] [address] [facility], [address] [place] [phone] Naeem Grissom MD Move Up Appointment 10/28/2024 Telephone [facility] Medical [facility] Pulmonology Specialty [facility] - [address] [phone] Naeem Grissom MD Results 10/24/2024 12:00 PM [facility] Home Care Visit [address] [place] [address] [place] [address] Juana Gonzalez, RN SN OASIS DISCHARGE/ASSESSMENT 10/24/2024 Home Care Visit [address] [place] [address] [place] [address] uJana Gonzalez, RN [facility] INTERDISCIPLINARY [place] 10/22/2024 11:30 AM [facility] Home Care Visit [address] [place] [address] [place] [address] Juana Gonzalez, RN SN HOME VISIT 10/17/2024 9:45 AM [employer] Home Care Visit [facility] Care [address] [place] [address] [place] [address] Juana Gonzalez, RN SN HOME VISIT 10/14/2024 1:30 PM [employer] Home Care Visit [address] [place] [address] [place] [address] Iris Chauhan od, LPN SN HOME VISIT 10/13/2024 4:00 PM [employer] Home Care Visit [facility] [address] [place] [address] [place] [address] Olga Huertas, PT PT INITIAL EVALUATION 10/09/2024 10:30 AM [employer] Home Care Visit [facility] Home Care [address] [place] [address] Juana Gonzalez RN SN OASIS START OF CARE 10/09/2024 Home Care Visit [facility] Home Care [address] [place] [address] [place] [address] Juana Gonzalez RN [facility] COORD OF CARE INTERDISCIPLINARY MTG 10/09/2024 Plan of Care Documentation [facility] Home Care [address] [place] [address] [place] [address] 10/08/2024 10:00 AM [employer] Home Care Visit [facility] Care [address] [place] [address] [place] [address] Eveline Newton RN SN NON ADMIT SOC 10/06/2024 11:45 AM [employer] Home Care Visit [facility] Home Care [address] [place] [address] [place] [address] Denice Lizarraga, [employer] VISIT 10/03/2024 3:39 PM [employer] - 10/08/2024 3:59 PM [employer] Hospital Encounter [facility] [place] [address] Sarthak Hendrickson MD Alexander, Kaci M, DO Kruse, Brandon Chase, DO Suresh, Aditya Krishna, MD Shortness Of Breath Discharge Disposition: Home with Home Health Care 10/03/2024 Travel 10/03/2024 MyChart Message Enc [facility] Medical Group Multispecialty Care - [facility] [address] [facility] [place] [address] Naeem Grissom MD Fever/Shortness of Breath 09/22/2024 2:51 PM [employer] - 09/22/2024 11:59 PM [employer] Hospital Encounter [facility] Sleep Lab [address] [place] [id number] Naeem Grissom MD Snoring Discharge Disposition: Home or Self Care (Routine Discharge) 09/22/2024 Travel from Last 3 Months Immunizations Name [...] materials from doctor or pharmacy Never 10/24/2024 [facility] Utilities Answer Date Recorded In the past 12 months has [facility] [employer], gas, oil, or water [employer] threatened to shut off services in your [...] and Family Not on file 10/04/2024 Attends [employer] Not on file 10/04 Active Member [...] Recorded Patient Health Questionnaire-2 Score 2 12/05/2022 [facility] - Occupational [...] any time in the past 12 m [facility], were you homeless or living in a [place] health care facility (including now)? 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 2:27 PM [employer] Legal Sex Female 4:16 PM CDT Gender Identity Not on file Sexual Orientation Not on file Last Filed Vital Signs Vital Sign Reading Time Taken Comments Blood Pressure 112/54 10/24/2024 12:28 PM [employer] Pulse 78 10/24/2024 12:28 PM [employer] Temperature 36.6 C (97.9 F) 10/14/2024 1:35 PM [employer] Respiratory Rate 20 10/24/2024 12:28 PM [employer] Oxygen Saturation 93% 10/24/2024 12:28 PM [employer] Inhaled Oxygen Concentration - - Weight 59 kg (130 lb) 10/24/2024 12:28 PM [employer] Height 162.6 cm (5' 4 ) 10/03/2024 8:42 PM [employer] Body Mass Index 22.31 10/03/2024 8:42 PM [employer] Plan of Treatment Upcoming Encounters Date Type Department Care Team (Late st Contact Info) Description 12/24/2024 2:00 PM CDT Office Visit [facility] Medical Group Multispecialty Care - [facility] [address] [facility] [place] [address] Naeem Grissom MD [address] [place] [address] [place] [address] Health Maintenance Due Date Last Done Comments Pneumococcal Vaccine: 65+ Years (1 of 2 - PCV) 1946 DTaP, Tdap and Td Vaccines ( 1 - Tdap) 02/14/1960 Zoster Vaccines (1 of 2) 1991 Annual Medicare Wellness Visit 2006 Dexa Scan (General) 2006 RSV Immunization or 60+ Years (1 - 1-dose 75+ series) 02/14/2016 COVID-19 Vaccine (3 - 2023-2 5 season) 2024 11/19/2020, 10/26/2020 PHQ-2 (Physician [place]) 09/17/2024 10/25/2023 Meningococcal B Vaccine Aged Out [...] HOME O2 EVAL Routine 10/08/2024 11:26 AM [employer] CBC W/DIFF AUTOMATED Routine 10/08/2024 5:46 AM [employer] BASIC METABOLIC PANEL Routine 10/08/2024 5:46 AM [employer] CBC W/DIFF AUTOMATED Routine 10/07/2024 6:07 AM [employer] BASIC METABOLIC PANEL Routine 10/07/2024 6:07 AM [employer] CBC W/DIFF AUTOMATED Routine 10/06/2024 6:13 AM [employer] BASIC METABOLIC PANEL Routine 10/06/2024 6:13 AM [employer] CBC W/DIFF AUTOMATED Routine 10/05/2024 8:03 AM [employer] BASIC METABOLIC PANEL Routine 10/05/2024 8:03 AM [employer] CULTURE LOWER RESPIRATORY W/GRAM STAIN STAT 10/04/2024 1:32 PM [employer] CULTURE, TB/AFB W/ STAIN STAT 10/04/2024 1:32 PM [employer] COMPREHENSIVE METABOLIC PANEL STAT 10/04/2024 6:00 AM [employer] CBC W/DIFF AUTOMATED STAT 10/04/2024 6:00 AM [employer] RESPIRATORY PCR PANEL 2 STAT 10/04/2024 1:12 AM [employer] HC MYCOPLASMA AB-90 Routine 10/04/2024 1 2:31 AM [employer]NER CULTURE, BACTERIA, BLOOD STAT 10/03/2024 11:10 PM [employer] ECG 12-LEAD STAT 10/03/2024 4:49 PM [employer] CULTURE LOWER RESPIRATORY W/GRAM STAIN STAT 10/03/2024 4:27 PM [employer] INFLUENZA A & B STAT 10/03/2024 4:27 PM [employer] LE[employer]NER CORONAVIRUS (COVID 19) STAT 4:27 PM [employer] LEGIONELLA AG URINE STAT 10/03/2024 4 :15 PM [employer] HC INFECT AGENT DETECT OPTICAL STAT 10/03/2024 4:15 PM [employer] LE[employer]NER TSH W/REFLEX Routine 10/03/2024 4:15 PM [employer] PHOSPHORUS, INORGANIC PHOSPHATE Routine 10/03/2024 4:15 PM [employer] MAGNESIUM Routine 10/03/2024 4:15 PM [employer] PROCALCITONIN (PCT) STAT 10/03/2024 4 :15 PM [employer] LE[employer]NER URINALYSIS, AUTO, COMPLETE STAT 10/03/2024 4:15 PM [employer] COMPREHENSIVE METABOLIC PANEL STAT 10/03/2024 4:15 PM [employer] CBC W/DIFF AUTOMATED STAT 10/03/2024 4:15 PM [employer] PRO-BRAIN NATRIURETIC PEPTIDE STAT 10/03/2024 4:15 PM [employer] TROPONIN, QUANT STAT 10/03/2024 4:15 PM [employer] BLOOD GAS, ARTERIAL LAB STAT 10/03/2024 4:05 PM [employer]NER XR CHEST PA+LAT STAT 10/03/2024 3:05 PM [employer] LE[employer]NER HOME SLEEP STUDY - WATCHPAT Routine 09/22/2024 3:00 PM [employer]NER Snoring from Last 3 Months Results * (ABNORMAL) BASIC METABOLIC PANEL (10/08/2024 5:46 AM [employer]) Only the most recent of4 resultswithin the time period is included. [facility] GLUCOSE 84 70 - 99 MG/DL 10/08/2024 9:39 AM [facility] LE[employer] BUN 19(H) 7 - 18 MG/DL 10/08/2024 9:39 AM [facility] CREATININE S/P/B 0.58 0.55 - 1.02 MG/DL 10/08/2024 9:39 AM [facility] SODIUM S/P/B 134(L) 136 - 145 MMOL/L 10/08/2024 9:39 AM [facility] POTASSIUM S/P/B 4.0 3.5 - 5.1 MMOL/L 10/08/2024 9:39 AM [facility] CHLORIDE S/P/B 102 97 - 115 MMOL/L 10/08/2024 9:39 AM [facility] CO2 29.0 21 - 32 MMOL/L 10/08/2024 9:39 AM [facility] CALCIUM S/P/B 8.6 8.5 - 10.1 MG/DL 10/08/2024 9:39 AM [facility] ANION GAP 3.0 2 - 10 MMOL/L 10/08/2024 9:39 AM [facility] BUN CREATININE RATIO 32.9(H) 6 - 26 10/08/2024 9:39 AM [facility] GFR ESTIMATE 90(L) >90 ML/MIN/1.7 3 M2 10/08/2024 9:39 AM [facility] Comment: NOTE: eGFR is not calculated for patients <18 years of age or gender unknown. This is an estimated GFR calculation using the new CKD EPI creatinine equation without race and so does not require a correction factor for race. This estimated GFR should not be used for calculating drug doses. 10/08/2024 5:46 AM [facility] Wolf Turner MD LABORATORY Final R esult [facility] [address] [place] [address], * (ABNORMAL) CBC W/DIFF AUTOMATED (10/08/2024 5:46 AM [employer]) Only the most recent of6 resultswithin the time period is included. WBC 4.27(L) 4.5 - 11.0 x10'3/uL 10/08/2024 6:40 AM [facility] [employer] [facility] RBC 4.40 4.20 - 5.40 x10'6/uL 10/08/2024 6:40 AM [facility] HGB 12.5 12.0 - 16.0 G/DL 10/08/2024 6:40 AM [facility] HCT 39.2 38.0 - 48.0 % 10/08/2024 6:40 AM [facility] MCV 89.1 81.0 - 99.0 FL 10/08/2024 6:40 AM [facility] MCH 28.4 27.0 - 31.0 PG 10/08/2024 6:40 AM [facility] MCHC 31.9(L) 32.0 - 36.0 G/DL 10/08/2024 6:40 AM [facility] RDW 13.0 11.5 - 14.5 % 10/08/2024 6:40 AM [facility] PLT 180 130 - 400 x10'3/uL 10/08/2024 6:40 AM [facility] MPV 10.2 9.3 - 12.2 FL 10/08/2024 6:40 AM [facility] DIFFERENTIAL TYPE AUTOMATED DIFFERENTIAL 10/08/2024 6:40 AM [facility] NEUTROPHILS % 57.7 % 10/08/2024 6:40 AM [facility] LYMPHOCYTES % 28.8 % 10/08/2024 6:40 AM [facility] MONOCYTES % 13.1 % 10/08/2024 6:40 AM [facility] EOSINOPHILS 0.0 % 10/08/2024 6:40 AM [facility] BASOPHILS 0.2 % 10/08/2024 6:40 AM [facility] IMMATURE GRANS % 0.2 % 10/08/19 6:40 AM [facility] ABS. NEUTROPHILS 2.46 1.80 - 7.70 x10'3/uL 10/08/2024 6:40 AM [facility] ABS. LYMPHOCYTES 1.23 1.00 - 4.80 x10'3/uL 10/08/2024 6:40 AM [facility] ABS. MONOCYTES 0.56 0.24 - 0.86 x10'3/uL 10/08/2024 6:40 AM [facility] ABS. EOSINOPHILS 0.00(L) 0.04 - 0.36 x10'3/uL 10/08/2024 6:40 AM [facility] ABS. BASOPHILS 0.01 0.01 - 0.08 x10'3/uL 10/08/2024 6:40 AM [facility] ABS. IMMATURE GRANULOCYTES 0.01 0.00 - 0.49 x10'3/uL 10/08/2024 6:40 AM [employer] 10/08/2024 5:46 AM [employer] Wolf Turner MD LABORATORY Final R esult [facility] [address] [place] [id number], * CULTURE, TB/AFB W/ STAIN (10/04/2024 1:32 PM [employer]) SPECIMEN SOURCE SPUTUM, EXPECTORATED 10/04/2024 5:04 PM [employer] RESULT REPORT 10/07/2024 4:58 PM [employer] EMMIE HUTSON Comment: Mycobacteria, Culture, with Fluorochrome Smear Mycobacteria Stn,AF,Fluor SOURCE : SPUTUM, EXPECTOR Result/Comment: No acid-fast bacilli seen. Mycobacteria smear result should be used as an adjunct to culture in diagnosing mycobacterial disease (e.g. tuberculosis). If intended, please ensure an order for Mycobacteria (Xdjy-Nvnl-Eapqovr) culture has also been submitted. Acid Fast Culture SOURCE : SPUTUM, EXPECTOR Result/Comment: No Mycobacterium species isolated after 6 weeks incubation. Test Performed by Jose D Gastelum, Induction Manager Jarek [facility], [address] [place] [address] Cj Dallas M.D., Ph.D., Director of Laboratories , [place] [id number] REPORT STATUS FINAL 11/19/2024 9:06 AM [employer] EMMIE HUTSON SPUTUM / Unknown 10/04/2024 1:32 PM [employer] Robin Garcia DO MICROBIOLOGY - GENERAL ORD ERABLES Final Result [facility] [address] [place], [place] , [place] [phone] [facility] [address] [place] [address], [place] [phone] * (ABNORMAL) CULTURE RESPIRATORY W/ GRAM STAIN (10/04/2024 1:32 PM [employer]) Only the most recent of2 resultswithin the time period is included. SPEC DESCRIPTION SPUTUM, EXPECTORATED 10/04/2024 1:32 PM [facility] SPECIAL REQUESTS NO SPECIAL REQUEST 10/04/2024 1:32 PM [facility] GRAM STAIN RESULT MODERATE WHITE BLOOD CELLS SEEN 10/05/2024 10:17 AM [facility] GRAM STAIN RESULT FEW MIXED BACTERIAL NIKOLE 10/05/2024 10:17 AM [facility] CULTURE RESULT SPARSE GROWTH OF PSEUDOMONAS AERUGINOSA SUSCEPTIBILITY ON PREVIOUS SPECIMEN [id number] NOTE: ORGANISM MAY DEVELOP RESISTANCE AFTER 3 TO 4 DAYS OF THERAPY WITH THIRD GENERATION CEPHALOSPORINS. TESTING OF REPEAT ISOLATES MAY BE WARRANTED. (A) 10/06/2024 8:37 AM [facility] CULTURE RESULT LIGHT GROWTH OF NORMAL NIKOLE PRESENT 10/06/2024 8:37 AM [facility] SPUTUM SPECIMEN / Unknown 10/04/2024 1:32 PM [employer]NER 10/04/2024 1:46 PM [employer] Robin Garcia DO MICROBIOLOGY - GENERAL ORD ERABLES Final Result [facility] [address] [place] [address], [place] [phone] * (ABNORMAL) COMPREHENSIVE METABOLIC PANEL (10/04/2024 6:00 AM [employer]) Only the most recent of2 resultswithin the time period is included. GLUCOSE 119(H) 70 - 99 MG/DL 10/04/2024 6:37 AM [facility] BUN 17 7 - 18 MG/DL 10/04/2024 6:37 AM [facility] CREATININE S/P/B 0.72 0.55 - 1.02 MG/DL 10/04/2024 6:37 AM [facility] SODIUM S/P/B 133(L) 136 - 145 MMOL/L 10/04/2024 6:37 AM [facility] POTASSIUM S/P/B 4.0 3.5 - 5.1 MMOL/L 10/04/2024 6:37 AM [facility] CHLORIDE S/P/B 102 97 - 115 MMOL/L 10/04/2024 6:37 AM [facility] CO2 25.8 21 - 32 MMOL/L 10/04/2024 6:37 AM [facility] CALCIUM S/P/B 8.7 8.5 - 10.1 MG/DL 10/04/2024 6:37 AM [facility] BILIRUBIN TOTAL S/P/B 0.3 0.2 - 1.2 MG/DL 10/04/2024 6:37 AM [facility] Comment: THIS ASSAY IS NOT RECOMMENDED FOR PATIENTS UNDERGOING TREATMENT WITH ELTROMBOPAG DUE TO THE POTENTIAL FOR FALSELY ELEVATED RESULTS. TOTAL PROTEIN S/P/B 6.5 6.4 - 8.2 G/DL 10/04/2024 6:37 AM [facility] ALBUMIN S/P/B 3.1(L) 3.4 - 5.0 G/DL 10/04/2024 6:37 AM [facility] AST 13(L) 15 - 37 U/L 10/04/2024 6:37 AM [facility] ALT 19 14 - 55 U/L 10/04/2024 6:37 AM [facility] ALKALINE PHOSPHATASE S/P/B 49(L) 50 - 136 U/L 10/04/2024 6:37 AM [facility] ANION GAP 5.2 2 - 10 MMOL/L 10/04/2024 6:37 AM [facility] BUN CREATININE RATIO 23.7 6 - 26 10/04/2024 6:37 AM [facility] A/G RATIO 0.9(L) 1.0 - 2.0 RATIO 10/04/2024 6:37 AM [facility] GFR ESTIMATE 83(L) >90 ML/MIN/1.7 3 M2 10/04/2024 6:37 AM [facility] Comment: NOTE: eGFR is not calculated for patients <18 years of age or gender unknown. This is an estimated GFR calculation using the new CKD EPI creatinine equation without race and so does not require a correction factor for race. This estimated GFR should not be used for calculating drug doses. 10/04/2024 6:00 AM [facility] LE[employer]NER Lilibeth Manzano LEAD SETTER LABORATORY Final Resul t [facility] [address] [place] [address], [place] [phone] * (ABNORMAL) RESPIRATORY PCR PANEL 2 (10/04/2024 1:12 AM [employer]) ADENOVIRUS PCR (RESP) NOT DETECTED NOT DETECTED 10/04/2024 3:19 AM [facility] CORONAVIRUS 229E PCR (RESP) NOT DETECTED NOT DETECTED 10/04/2024 3:19 AM [facility] CORONAVIRUS HKU1 PCR (RESP) NOT DETECTED NOT DETECTED 10/04/2024 3:19 AM [facility] CORONAVIRUS NL63 PCR (RESP) NOT DETECTED NOT DETECTED 10/04/2024 3:19 AM [facility] CORONAVIRUS OC43 PCR (RESP) NOT DETECTED NOT DETECTED 10/04/2024 3:19 AM [facility] METAPNEUMOVIRUS PCR (RESP) NOT DETECTED NOT DETECTED 10/04/2024 3:19 AM [facility] RHINOVIRUS/ENTEROV IRUS PCR (RESP) NOT DETECTED NOT DETECTED 10/04/2024 3:19 AM [facility] INFLUENZA A/H1-2009 PCR (RESP) DETECTED(A) NOT DETECTED 10/04/2024 3:19 AM [facility] INFLUENZA B PCR (RESP) NOT DETECTED NOT DETECTED 10/04/2024 3:19 AM [facility] PARAINFLUENZA 1 PCR (RESP) NOT DETECTED NOT DETECTED 10/04/2024 3:19 AM [facility] PARAINFLUENZA 2 PCR (RESP) NOT DETECTED NOT DETECTED 10/04/2024 3:19 AM [facility] PARAINFLUENZA 3 PCR (RESP) NOT DETECTED NOT DETECTED 10/04/2024 3:19 AM [facility] PARAINFLUENZA 4 PCR (RESP) NOT DETECTED NOT DETECTED 10/04/2024 3:19 AM [facility] RSV PCR (RESP) NOT DETECTED NOT DETECTED 10/04/2024 3:19 AM [facility] B PARAPERTUSIS PCR (RESP) NOT DETECTED NOT DETECTED 10/04/2024 3:19 AM [facility] BORDETELLA PERTUSSIS PCR (RESP) NOT DETECTED NOT DETECTED 10/04/2024 3:19 AM [facility] CHLAMYDOPHILA PNEUMONIAE PCR (RESP) NOT DETECTED NOT DETECTED 10/04/2024 3:19 AM [facility] [facility] MYCOPLASMA PNEUMONIAE PCR (RESP) NOT DETECTED NOT DETECTED 10/04/2024 3:19 AM [facility] [facility] CORONAVIRUS SARS COV 2 PCR (RESP) NOT DETECTED NOT DETECTED 10/04/2024 3:19 AM [facility] [facility] NASOPHARYNGEAL SWAB / Unknown 10/04/2024 1:12 AM [facility] us Lilibeth Manzano LEAD SETTER MICROBIOLOGY - GENERAL ORDE NAFISA Final Result [facility] [address] [place] [address], [place] [phone] * (ABNORMAL) MYCOPLASMA PNEUMONIAE AB (10/04/2024 12:31 AM [employer]ELD[employer]) M. PNEUMONIAE AB IGG 1.65(H) <=0.90 10/08/2024 5:20 PM [facility]ELDING LE[employer] [facility] Comment: Reference Range: <=0.90 Negative 0.91-1.09 Equivocal >=1.10 Positive A positive IgG result indicates that the patient has antibody to Mycoplasma. It does not differentiate between an active or past infection. The clinical diagnosis must be interpreted in conjunction with the clinical signs and symptoms of the patient. M. PNEUMONIAE AB IGM 25 <770 U/mL 10/08/2024 5:20 PM [facility]ELDING LEAD [employer] Comment: Reference Range: <770 [...] symptoms of the patient. Test Performed by Induction ManagerJose D, Minka [facility], [address] [place] [address] Cj Dallas M.D., Ph.D., Director of Laboratories , CLIA [id number] 10/04/2024 12:3 1 AM [employer] Lilibeth Manzano APRN LABORATORY Final Resul t [facility] [address] , [place] [phone] * CULTURE BACTERIA, BLOOD (10/03/2024 11:10 PM [employer]) SPEC DESCRIPTION BLOOD 10/03/2024 4:16 PM [facility] SPECIAL REQUESTS NO SPECIAL REQUEST 10/03/2024 4:16 PM [facility] [employer] CULTURE RESULT NO GROWTH 5 DAYS 10/08/2024 10:45 AM [facility] BLOOD SPECIMEN OBTAINED FOR BLOOD CULTURE / Unknown 10/03/2024 11:10 PM [facility] [facility] 10/03/2024 11:15 PM [employer] Sarthak Hendrickson MD MICROBIOLOGY - GENERAL ORDERABL ES Final Result [facility] [address] [place] [address], [place] [phone] * ECG 12 lead (10/03/2024 4:49 PM [employer]ELD[employer]) 10/03/2024 4:49 PM [facility] Narrative [facility] - 10/04/2024 5:10 AM [facility] [facility] [address] Test Date: 2024-10-03 Pat Name: HERIBERTO TEJEDA Department: 41 Room: EXAM10 Gender: Female 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: CC : 1940 Requested By: BRANDI ACEVES Order Number: [id number] Reading MD: Danny Bee Measurements Intervals [place] Rate: 114 P: 95 FL: 169 QRS: 40 QRSD: 119 T: 138 QT: 322 QTc: 445 Interpretive Statements SINUS TACHYCARDIA WITH FREQUENT VENTRICULAR PREMATURE COMPLEXES Baseline artifact limits interpretation [facility]G [facility] Procedure Note Danny Bee MD - 10/04/[address] Test Date: 2024-10-03 Pat Name: HERIBERTO TEJEDA Department: 41 Room: EXAM10 Gender: Female 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: CC : 1940 Requested By: BRANDI ACEVES Order Number: [id number] Reading MD: Danny Bee Measurements Intervals [place] Rate: 114 P: 95 FL: 169 QRS: 40 QRSD: 119 T: 138 QT: 322 QTc: 445 Interpretive Statements SINUS TACHYCARDIA WITH FREQUENT VENTRICULAR PREMATURE COMPLEXES Baseline artifact limits interpretation ING LE[employer] [facility]NER us Brandi CANELA ECG ORDERABLES Final Resu lt [facility] ([facility]) [facility] * CORONAVIRUS (COVID 19) (10/03/2024 4:27 PM [employer]ELD[employer]) CORONAVIRUS SARS COV 2 RNA NEGATIVE NEGATIVE 10/03/2024 5:30 PM [employer] [facility] Comment: NEGATIVE RESULTS DO [...] SARS-COV-2. SPECIMEN TYPE NASAL 10/03/2024 4:32 PM [employer] [facility] NASAL STRUCTURE / Unknown 10/03/2024 4:27 PM WELDING LEAD BURNER us Sarthak Hendrickson MD MICROBIOLOGY - GENERAL ORDERABL ES Final Result Performing Organization Address City/[facility]/ZIP Co de Phone Number [facility] [address] [place] [address], [place] [phone] * INFLUENZA A & B (10/03/2024 4:27 PM WELDING LEAD BURNER) SPECIMEN TYPE NASAL 10/03/2024 4:58 PM WELDING LEAD BURNER [facility] INFLUENZA A NEGATIVE NEGATIVE 10/03/2024 5:30 PM WELDING LEAD BURNER [facility] INFLUENZA B NEGATIVE NEGATIVE 10/03/2024 5:30 PM WELDING LEAD BURNER [facility] Comment: Interpretation: Negative for [...] NASOPHARYNGEAL SWAB / Unknown 10/03/2024 4:27 PM WELDING LEAD BURNER us Sarthak Hendrickson MD MICROBIOLOGY - GENERAL ORDERABL ES Final Result [facility] [address] [place] [address], [place] [phone] * PROCALCITONIN (PCT) (10/03/2024 4:15 PM WELDING LEAD BURNER) Procalcitonin <0.05 0.00 - 0.49 NG/ML 10/03/2024 5:53 PM WELDING LEAD BURNER [facility] 10/03/2024 4:15 PM WELDING LEAD BURNER Brandi Aceves PA LABORATORY Final Resu lt Performing Organization Address City[facility]/ZIP Co de Phone Number [facility] [address] [place] [address], * TSH W/REFLEX (10/03/2024 4:15 PM WELDING LEAD BURNER) TSH 0.922 0.358 - 3.74 uIU/ML 10/04/2024 1:37 AM WELDING LEAD BURNER [facility] Comment: HIGH DOSES OF BIOTIN MAY INTERFERE WITH THIS TEST RESULT. CORRELATION TO CLINICAL HISTORY AND PRESENTATION RECOMMENDED. FREE T4 NOT INDICATED 10/03/2024 4:15 PM WELDING LEAD BURNER Lilibeth Manzano APRN LABORATORY Final Resul t Performing Organization Address [facility] Co de Phone Number [facility] [address] [place] [address], * (ABNORMAL) PRO-BRAIN NATRIURETIC PEPTIDE (10/03/2024 4:15 PM WELDING LEAD BURNER) PRO-B TYPE NATRIURETIC PEPTIDE 1,925(H) <450 PG/ML 10/03/2024 5:26 PM WELDING LEAD BURNER [facility] Comment: CUT POINTS ESTABLISHED [...] 89% AND 72% FOR ACUTE CHF. 10/03/2024 4:1 5 PM WELDING LEAD BURNER Brandi CANELA LABORATORY Final Resu lt [facility] [address] [place] [address], [place] [phone] * STREP PNEUMO AG URINE (10/03/2024 4:15 PM WELDING LEAD BURNER) S. PNEUMONIAE URINARY AG NEGATIVE NEGATIVE 10/04/2024 12:04 PM WELDING LEAD BURNER [facility] URINE SPECIMEN OBTAINED BY CLEAN CATCH PROCEDURE / Unknown 10/03/2024 4:15 PM WELDING LEAD BURNER us Lilibeth Manzano APRN MICROBIOLOGY - GENERAL ORDE RABLES Final Result Performing Organization Address [facility]/ZIP Co de Phone Number [facility] [address] [place] [address], [place] [phone] * LEGIONELLA AG URINE (10/03/2024 4:15 PM WELDING LEAD BURNER) LEGIONELLA ANTIGEN (URINE) NEGATIVE NEGATIVE 10/04/2024 12:04 PM WELDING LEAD BURNER [facility] URINE SPECIMEN / Unknown 10/03/2024 4:15 PM WELDING LEAD BURNER us Lilibeth Manzano APRN MICROBIOLOGY - GENERAL ORDE RABLES Final Result Performing Organization Address [facility]/ZIP Co de Phone Number [facility] [address] [place] [address], [place] [phone] * URINALYSIS, AUTO, COMPLETE (10/03/2024 4:15 PM [facility]) SPECIMEN TYPE URINE CLEAN CATCH 10/03/2024 4:19 PM [facility] COLOR (U) LIGHT YELLOW 10/03/2024 5:13 PM [facility] TRANSPARENCY CLEAR 10/03/2024 5:13 PM [facility] SPECIFIC GRAVITY (U) 1.009 1.001 - 1.030 10/03/2024 5:13 PM [facility] U PH 6.5 5.0 - 9.0 10/03/2024 5:13 PM [facility] LEUKOCYTES (U) NEGATIVE NEGATIVE 10/03/2024 5:13 PM [facility] NITRITES NEGATIVE NEGATIVE 10/03/2024 5:13 PM [facility] PROTEIN RANDOM (U) NEGATIVE <30 MG/DL 10/03/2024 5:13 PM [facility] GLUCOSE (U) NORMAL NORMAL MG/DL 10/03/2024 5:13 PM [facility] KETONES MG/DL (U) NEGATIVE NEGATIVE MG/DL 10/03/2024 5:13 PM [facility] UROBILINOGEN NORMAL NORMAL MG/DL 10/03/2024 5:13 PM [facility] BILIRUBIN (U) NEGATIVE NEGATIVE MG/DL 10/03/2024 5:13 PM [facility] BLOOD (U) NEGATIVE NEGATIVE 10/03/2024 5:13 PM [facility] WBC/HPF 2 <6 /HPF 10/03/2024 5:13 PM [facility] RBC/HPF 2 <6 /HPF 10/03/2024 5:13 PM [facility] URINE SPECIMEN OBTAINED BY CLEAN CATCH PROCEDURE / Unknown 10/03/2024 4:15 PM WELDING LEAD BURNER Brandi CANELA URINE ORDERABLES Final Res ult Performing Organization Address [facility]/ZIP Co de Phone Number [facility] [address] [place] [address], [place] [phone] * TROPONIN, QUANT (10/03/2024 4:15 PM WELDING LEAD BURNER) TROPONIN I HIGH SENSITIVITY 44 <54 ng/L 10/03/2024 5:26 PM WELDING LEAD BURNER [facility] Comment: HIGH DOSES OF BIOTIN, TROPONIN-SPECIFIC AUTOANTIBODIES, AND ANTIBODY THERAPY CONTAINING HAMA MAY INTERFERE WITH THIS TEST RESULT. CORRELATION TO CLINICAL HISTORY AND PRESENTATION RECOMMENDED. 10/03/2024 4:15 PM WELDING LEAD BURNER Brandi CANELA LABORATORY Final Resu lt Performing Organization Address [facility] Co de Phone Number [facility] [address] [place] [address], * PHOSPHORUS, INORGANIC PHOSPHATE (10/03/2024 4:15 PM WELDING LEAD BURNER) PHOSPHORUS 3.4 2.5 - 4.9 MG/DL 10/04/2024 1:37 AM WELDING LEAD BURNER [facility] 10/03/2024 4:15 PM WELDING LEAD BURNER Lilibeth Manzano APRN LABORATORY Final Resul t Performing Organization Address [facility]/ZIP Co de Phone Number [facility] [address] [place] [address], [place] [phone] * MAGNESIUM (10/03/2024 4:15 PM WELDING LEAD BURNER) MAGNESIUM 2.3 1.8 - 2.4 MG/DL 10/04/2024 1:37 AM [facility] Comment:SLIGHT HEMOLYSIS, RE SULT MAY BE AFFECTED. 10/03/2024 4:15 PM WELDING LEAD BURNER us Lilibeth Manzano LEAD SETTER LABORATORY Final Resul t [facility] [address] [place] [address], * (ABNORMAL) ARTERIAL BLOOD GAS (10/03/2024 4:05 PM WELDING LEAD BURNER) PH ARTERIAL 7.49(H) 7.35 - 7.45 10/03/2024 4:15 PM [facility] PCO2 33.0(L) 35.0 - 45.0 MMHG 10/03/2024 4:15 PM [facility] PO2 90.0 83.0 - 108.0 MMHG 10/03/2024 4:15 PM [facility] TOTAL CO2 ARTERIAL 26.1(H) 19.0 - 24.0 MMOL/L 10/03/2024 4:15 PM [facility] BASE EXCESS 2.2 0.0 - 3.0 MMOL/L 10/03/2024 4:15 PM [facility] O2 SATURATION 98 94.0 - 98.0 % 10/03/2024 4:15 PM [facility] BICARB ARTERIAL 25.1 21.0 - 28.0 MMOL/L 10/03/2024 4:15 PM [facility] CHANDAN TEST CHANDAN TEST PERFORMED 10/03/2024 4:12 PM [facility] O2 ADMIN ARTERIAL 28 10/03/2024 4:12 PM [facility] DRAW SITE ARTERIAL RT RADIAL 10/03/2024 4:12 PM WELDING LEAD BURNER [facility] 10/03/2024 4:05 PM WELDING LEAD BURNER Brandi CANELA LABORATORY Final Resu lt [facility] [address] [place] [address], * XR CHEST PA+LAT (10/03/2024 3:05 PM WELDING LEAD BURNER) Anatomical Region Laterality Modality Chest Radiographic Angie ging 10/03/2024 3:12 PM WELDING LEAD BURNER Impressions 10/03/2024 3:17 PM WELDING LEAD BURNER =====IMPRESSION:===== 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 Superimposed acute/active airway infection/inflammation is not excluded. Ordered By: BRANDI ACEVES Interpreted By: Sulema Pinto MD, 10/03/2024 3:12 PM Narrative 10/03/2024 3:17 PM WELDING LEAD BURNER [facility] [address] [place], [place] [address] Examination: Chest x-ray 2 view Exam date/time: [...] Procedure Note Sulema Pinto MD - 10/03/2024 [facility] [address] [place], [place] [address] Examination: Chest x-ray 2 view Exam date/time: [...] lt * Home Sleep Study - WatchPat ([id number]/[id number]) (09/22/2024 3:00 PM WELDING LEAD BURNER) Narrative [facility] - 09/22/2024 3:00 PM WELDING LEAD BURNER Diego Freeman MD 09/30/2024 10:28 AM Patient Information First Name: HERIBERTO Last Name: CHERYL ID: [id number] Date: 1940 Age: 84 Gender: Female BMI: [...] (Events per Minute): 4.8 Rev. Printed on:09/30/2024 09/22/2024,[id number],1940,Female *The automatic analysis events or stages have been edited. 539 Page 1 of 2 Sleep Study Report SUMMARY/DIAGNOSIS 1.) Mild Obstructive Sleep Apnea. 2.) Premature beats were noted and minimal atrial fibrillation was suspected during this study. RECOMMENDATIONS [place] treatment option should be discussed with the [...] snoring and other sleep-related issues, such as FOUNDRY TECHNICIAN depressants, especially at bedtime. Raw data reviewed and electronically signed by: Diego Freeman on 09/30/2024 10:26:04 AM at 4:26:10PM, [facility] us Naeem Grissom MD SLEEP CENTER ORDERABLES Fin al Result [facility] [address] [place] [address], from Last 3 Months Insurance [employer] MEDICARE Advance Directives * Full Code (Latest Code Status on File) Date Activated Date Inactivated Comments 10/09/2024 3:14 PM * Full Code Date Activated Date Inactivated Comments 10/04/2024 12:11 AM 10/08/2024 6:04 PM Care Teams Rough Patcher Relationship Specialty Start Date End Date Pawan Echevarria MD [address] [facility] [address] [place] [address] PCP - General FAMILY PRACTICE 04/17/23
--- OUTSIDE RECORDS SUMMARY | 2024-12-15 13:48 | XMS_ITS | Clinical Summary ---
Author Organization [facility] Virtual Care Address [address] [place] [address] Phone Care Team Providers Care Ambulette Driver Name Role Phone Pawan Echevarria MD Primary Care Provider [phone] Allergies No known active allergies Medications calcium [...] CMP checked today. - Spoke with her dining room server, Dr. Abdon Flynn ([facility]), to discuss the possibility of sparing [...] 81 y.o. 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 8 COPD (chronic obstructive pulmonary disease) Encounters Date Type Department Care Team Description 12/01/2024 Telephone [facility] Medical [facility] Cardiology [address] [place] [address] Damien Plaza MD 10/01/2024 1:15 PM TRUCK TECHNICIAN Office Visit [facility] Cardiology [address] [place] [address] Damien Plaza MD Nonischemic cardiomyopathy (HCC) (Primary [...] on file Legal Sex Female 3:43 AM TRUCK TECHNICIAN Gender Identity Female 02/01/2022 8:55 AM CDT Sexual Orientation Straight 02/01/2022 8: 55 AM CDT Obstetrics History Last Filed Vital Signs Vital Sign Reading Time Taken Comments Blood Pressure 150/68 10/01/2024 1:07 PM TRUCK TECHNICIAN Pulse 56 10/01/2024 1:07 PM TRUCK TECHNICIAN Temperature 36.9 C (98.5 F) 10/04/2022 11:40 AM TRUCK TECHNICIAN Respiratory Rate 20 03/18/2024 11:5 3 AM CDT Oxygen Saturation 91% 10/01/2024 1:0 7 PM TRUCK TECHNICIAN 2 Liters oxygen Inhaled Oxygen Concentration - - Weight 59.4 kg (131 lb) 10/01/2024 1:07 PM TRUCK TECHNICIAN Height 162.6 cm (5' 4 ) 10/01/2024 1:07 PM TRUCK TECHNICIAN Body Mass Index 22.49 10/01/2024 1:07 PM TRUCK TECHNICIAN Plan of Treatment Health Maintenance Due Date [...] Comments ELECTROCARDIOGRAM REPORT Routine 025 3:58 PM TRUCK TECHNICIAN PVC (premature ventricular contraction) from Last 3 Months Results * Electrocardiogram Report (10/01/2024 3:58 PM TRUCK TECHNICIAN) us Damien Plaza MD ECG ORDERABLES Final Result from Last 3 Months Insurance MEDICARE FOR LIFE MEDICARE FOR LIFE MEDICARE FOR LIFE Care Teams Ambulette Driver Relationship Specialty Start Date End Date Pawan Echevarria MD [facility] [address] [address] PCP - General Family Medicine 06/06/23
--- OUTSIDE RECORDS SUMMARY | 2024-12-15 13:48 | XMS_ITS | Data Portability ---
Author Organization [facility], Telehealth (patients home) Address [address] [place] [address] Assessment Encounter Date Assessment Date Assessment LastModified by Organization Details LastModified Time 08/28/2023 08/28/2023 Patient evaluated for depressive and anxiety disorder. History and exam indicate MDD/ RD. I recommend restarting zoloft 25mg daily. Discussed goals of treatment and effectiveness of current treatment. Discussed follow up and orders indicated below. FAce to face 90 minutes Not available 08/28/2023 22:09:45 09/03/2024 09/03/2024 Met with Nora today for follow up on her mod MDD and RD PHQ9=10 GAD7= 13 mod [email or web address] Not available 09/03/2024 20:31:20 10/01/2024 10/01/2024 Met with Nora oden to follow-up on Zoloft PHQ-[address]-7 15 severe [id number] Not available 10/01/2024 13:30:17 Plan of Treatment Reminders Order Date Submit Date Provider Last Modified By Organization Details Last Modified Time Details Appointments Psychiatr ic Follow up 2024 01:00P Abril Neumann Not available Not available Not available Lab None recorded. Referral None recorded. Procedures None recorded. Surgeries None recorded. Imaging None recorded. Medication Orders Zoloft 50 mg tablet 2024 025 [facility] #[id number], [address] [facility], [place], [place], [id number], 10/01/2024 13:29:57 Zoloft 50 mg tablet 2023 024 ELFIN COVE [facility] #[id number], [address] [facility], [place], [place], [id number], 09/03/2024 15:01:16 Zoloft 50 mg tablet 2022 024 [facility] #48219, [address] [facility], [place], [place], [phone], 09/03/2024 14:31:19 Zoloft 25 mg tablet 2022 023 [email or web address] [facility][id number], [address] [facility], [place], [place], [id number], 09/03/2024 14:30:55 Patient TargetsNo targets recorded. Patient [...] Organization Details Recorded Time Generalized anxiety disorder 75709503 Active 2022 Selam Neumann CNM, [facility] [address], [place], [address], [facility] 16:13:02 Anxiety 49655068 Active 2022 Sel[facility] Neumann CNM, [facility] [address], [place], [address], [facility] 13:22:24 Mild recurrent major depression 77561880 Active 2022 Sel[facility] Neumann CNM, [facility] [address], [place], [address], [facility] 13:22:45 Increased blood pressure 04212319 Active 2024 Sel[facility] Neumann CNM, [facility] [address], [place], [address], [facility] 5 13:28:28 Depressive disorder 49072335 Active [address] [facility] 3 14:08:50 Bronchiectasi s 28855699 Active 2022 Mark [facility] 3 14:15:47 Moderate recurrent major depression 93874196 Active 2022 Selam Neumann CNM, [facility] [address], [place], [address], [facility] 3 16:12:57 Problem Notes None recorded. Procedures Surgical History Date Name Laterality Status Provider Name and Address Organization Details Recorded Time 08/21/20 05 Partial Hysterectomy completed [facility] 08/28/2023 14:18:29 biopsy of breast completed Maddie Gonzalez [facility] 09/03/2024 14:31:54 partial hip replacement by prosthesis completed [facility] 08/28/2023 14:18:05 Appendectomy [facility] 08/28/2023 14:18:46 Imaging Results None recorded. [...] Updated DateTime 3 162.56 cm 22.6 kg/m2 88630.0 4 g 84 /min 124 mm[Hg] 64 mm[Hg] Mark Douglas [facility], [place] 3 14:11:31 Date Recorded Body height Body mass index (BMI) Body weight Heart rate Systolic blood pressure Diastolic blood pressure Provider Name and Address Organization Details Last Updated DateTime 3 162.56 cm 22.5 kg/m2 18436.6 g 73 /min 151 mm[Hg] 80 mm[Hg] Selam Neumann CNM, [facility] [address], [place], [address], [facility], [place] 3 13:11:52 Date Recorded Body height Body mass index (BMI) Body weight Heart rate Systolic blood pressure Diastolic blood pressure Provider Name and Address Organization Details Last Updated DateTime 4 162.56 cm 23 kg/m2 29029.3 8 g 49 /min 121 mm[Hg] 70 mm[Hg] Maddie Gonzalez [facility], [place] 4 14:30:09 Date Recorded Body height Body mass index (BMI) Body weight Heart rate Systolic blood pressure Diastolic blood pressure Provider Name and Address Organization Details Last Updated DateTime 5 162.56 cm 22.7 kg/m2 25102.1 9 g 92 /min 177 mm[Hg] 91 mm[Hg] Maddie Gonzalez [facility], [place] 5 12:15:14 Date Recorded Heart rate Systolic blood pressure Diastolic blood pressure Provider Name and Address Organization Details Last Updated DateTime 10/01/2024 80 /min 158 mm[Hg] 78 mm[Hg] Selam Neumann CNM, [facility] [address], [place], [address], [facility], [place] 10/01/2024 13:07:36 Social History Question Answer Notes LastModified by Organizat [employer] Details LastModified Time Tobacco Smoking Status Former Smoker Mark Douglas [facility] 08/28/2023 14:22:30 What Is Your [...] Anxious, Or Unable To Sleep At Night)? [id number] Information not available 08/28/2023 Do You Use [...] CNM, PMP- Main Office [address] [place] [address] 08/28/2023 14:01:40 08/28/2023 16:04:28 Moderate recurrent major depression 69984387 F33.1 restart zoloft 25mg daily, encouraged to take at bedtime. discussed can cause some gi disturbanc e but usually does not last longer than a few weeks Generalize d anxiety disorder 38702137 F41.1 start zoloftcont inue xanax as needed- prescribed by Dr Echevarria 1461 Selam Neumann CNM, [facility] Main Office [address] [place] [address] 09/11/2023 12:02:44 09/11/2023 13:01:59 Anxiety 08583509 F41.9 continue Xanax as needed, as prescribed by pcp Mild recur rent major depression 84141315 F33.0 increase zoloft to 50mg dailyencou raged getting into grief counseling or therapy at [facility] rtc 3 weeks 4794 Selam Neumann CNM, [facility] Main Office [address] [place] [address] 09/03/2024 14:24:18 09/05/2024 13:09:29 Anxiety 87900444 F41.9 continue Xanax as needed, as prescribed by pcp Moderate r ecurrent major depression 78722779 F33.1 increase zoloft to 50mg daily, encouraged to take at bedtime. discussed can cause some gi disturbanc e but usually does not last longer than a few weeksrtc 4 weeksencou rage therapy weekly- starting back to therapy with FRANCISCO 5098 Selam Neumann CNM, [facility] Main Office [address] [place] [address] 10/01/2024 12:12:19 10/01/2024 15:35:02 Moderate recurrent major depression 08829832 F33.1 continue zoloft 50mg daily,rtc 3 monthsenco urage therapy weekly- starting with new therapist next week Anxiety 48144010 F41.9 continue Xanax as needed, as prescribed by pcp Increased blood pressure 08744411 R03.0 bp 177/91 on arrival to office. [...] Huerta Member ID Guarantor Name 08/28/2023 1 [place] (MEDICARE) Nora Tejeda [id number] Nora Tejeda 09/11/2023 1 [place] Nora Tejeda [id number] Nora Tejeda 09/03/2024 1 [place]ARE) Nora Tejeda [id number] Nora Tejeda 09/03/2024 2 FOR LIFE () Nora Tejeda [id number] Nora Tejeda 10/01/2024 1 [place] Nora Tejeda [id number] Nora Tejeda 10/01/2024 2 FOR LIFE () Nora Tejeda [id number] Nora Tejeda Notes Date Note Type Note [...] [employer] Energy is good. Selam Neumann CNM, [facility] [address], [place], [address], [facility] 08/28/2023 22:20:29 09/11/2023 text/html Met with Nora [...] VH. Energy is good. Selam Neumann CNM, [facility] [address], [place], [address], [facility] 09/11/2023 13:44:31 09/03/2024 text/html Met with Nora [...] a day. Denies isolating self. Went to [place] sun[place]. Sleep- No problems falling or staying asleep. Takes Xanax prior to bedtime. Always wakes early in am. Denies any SI or Hi. Denies any AH or VH. Getting back into therapy with FRANCISCO. Selam Neumann CNM, [facility]- [address], [place], [address], [facility] 09/03/2024 20:45:26 10/01/2024 text/html Met with Nora [...] and will discuss that further with her montessori toddler teacher today. Nora denies any SI or HI. Denies any auditory hallucinations or visual hallucinations. Starting with a new therapist next week Roxana [place]. Selam Neumann CNM, [facility] [address], [place], [address], [facility] 10/01/2024 13:30:53 OBGyn Episode No OBEpisode recorded.
--- OUTSIDE RECORDS SUMMARY | 2024-12-15 13:48 | XMS_ITS | Encounter Summary ---
Author Organization [facility] Address [address] [place] [address] Care Team Providers Care Machine Grinder Name Role Phone Pawan Echevarria MD Primary Care Provider [phone] Encounter Details Date Type Department Care Team (Latest Contact Info) Description 12/11/2024 Scan HEALTH INFO SRVCS Scanned, Doc Med Group Social History Tobacco Use Types Packs/Day Years [...] materials from doctor or pharmacy Never 10/24/2024 [facility] Utilities Answer Date Recorded In [...] and Family Not on file 10/04/2024 Attends [employer] Not on file 10/04 Active Member [...] Recorded Patient Health Questionnaire-2 Score 2 12/05/2022 [facility] of Occupat ional Health - Occupational Stress [...] in the past 12 m [facility], were you homeless or living in a alf (including now)? 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 2:27 PM FIRE ALARM TECHNICIAN Legal Sex Female 4:16 PM CDT Gender [...] Date Author Status No 10/04/2024 5:00 PM FIRE ALARM TECHNICIAN [place], Nighat R, RN Active documented in this encounter Plan of Treatment Upcoming Encounters Date Type Department Care Team (Late st Contact Info) Description 12/24/2024 2:00 PM CDT Office Visit [facility] Medical Group Multispecialty Care - [facility] [address] [facility] [place] [address] Abdon Flynn MD 3rd [facility] [address] [place] [address] documented as of this encounter Visit Diagnoses Not on filedocumented in this encounter Additional Health Concerns Assessment Noted Time PHQ-9 Depression Total Score: 0 12/13/19 22 11:54 AM CDT documented as of this encounter Care Teams Machine Grinder Relationship Specialty Start Date End Date Pawan Echevarria MD [address] [facility] [address] [place] [address] PCP - General FAMILY PRACTICE 04/17/23 documented as of this encounter
--- OUTSIDE RECORDS SUMMARY | 2024-12-15 13:48 | XMS_ITS | Clinical Summary ---
Author Organization [facility] Negra Priestolga Address [address] [place] [address] Care Team Providers Care Hearing Instrument Specialist Name Role Phone Pawan Echevarria MD Primary Care Provider [phone] Allergies Active Allergy Reactions Criticality Noted Date [...] daily as needed for Nausea. 5 Active anastrozole (Arimidex) 1 mg tablet Take 1 Tablet (1 mg) by mouth daily. 90 Tablet 5 5 Active palbociclib (Ibrance) 125 mg tablet Take 1 tablet (125 mg) by mouth daily for 21 days on and 7 days off every 28-day cycle. 21 Tablet 4 12/12/2024 7:45 AM CDT 5 Active Active Problems No known active problems Encounters Date Type Department Care Team Description 12/12/2024 Specialty Pharmacy [facility] [address] [place] [phone] Viridiana Gloria, PHARMACIST Specialty Pharmacy Clinical Assessment 12/11/2024 Specialty Pharmacy [facility] [address] [place] [phone] Jolene Lozoya, PHARMACIST Specialty Pharmacy Refill Coordination 12/11/2024 Specialty Pharmacy [facility] [address] [place] [phone] Viridiana Gloria, PHARMACIST Specialty Pharmacy Prior Auth Coordination 12/10/2024 4:00 PM CDT Telephone Check Up [facility] Oncology and H[facility] [address] [place] [address] Warren Vaughn MD Metastasis to bone (CMS/HCC) (Primary Dx) 12/10/2024 Orders Only [facility] [address] [place] [address] Warren Vaughn MD Malignant neoplasm of left breast in female, estrogen receptor positive, unspecified site of breast (CMS/HCC) (Primary Dx) 12/01/2024 1:15 PM CDT Office Visit [facility] [address] [place] [address] Warren Vaughn MD Abnormal mammogram of left breast (Primary Dx); Malignant neoplasm of left breast in female, estrogen receptor positive, unspecified site of breast (CMS/HCC) 11/04/2024 External Device Data STL ABSTRACTION Provider, Abstract 10/09/2024 External Device Data ST[facility] ABSTRACTION Provider, Abstract 10/08/2024 External Device Data [facility] ABSTRACTION Provider, Abstract 10/07/2024 External Device Data ST[facility] ABSTRACTION Provider, Abstract 10/03/2024 Orders Only [facility] [address] [place] [address] Warren Vaughn MD 10/02/2024 Orders Only [facility] [address] [place] [address] Warren Vaughn MD from Last 3 Months [...] Team (Late st Contact Info) Description 01/14/2025 9:15 AM CDT Office Visit [facility]ology - [place] [address] [facility] [address] [place] [address] Warren Vaughn MD [address] [facility] [address] [place] [address] Health Maintenance Due Date Last Done Comments DTAP/TDAP/TD VACCINES (1 - Tdap) 02/14/1960 PNEUMOCOCCAL VACCINE 50+ YEA RS (1 of 2 - PCV) 02/14/1960 ZOSTER VACCINE (1 of 2) 1991 RSV VACCINE (60+ or ) (1 - 1-dose 75+ series) 02/14/2016 INFLUENZA VACCINE (#1) 2024 COVID-19 Vaccine ( - season) 05/18/202401/2021, 10/26/2020 OSTEOPOROSIS SCREENING Completed 06/02/2024 Procedures Procedure Name Priority Date/Time Associated Diagnosis Comments CANCER ANTIGEN 15-3 Routine 10/03/2024 2 :11 PM TURNER SPLITTER MACHINE OPERATOR CBC WITH DIFFERENTIAL Routine 10/01/2024 3:09 PM TURNER SPLITTER MACHINE OPERATOR COMPREHENSIVE METABOLIC PANEL Routine 10/01/2024 11:45 AM TURNER SPLITTER MACHINE OPERATOR from Last 3 Months Results * CANCER ANTIGEN 15-3 (10/03/2024 2:11 PM TURNER SPLITTER MACHINE OPERATOR) Blood us Warren Vaughn MD CHEMISTRY ORDERABLES Final Resu lt * CBC WITH DIFFERENTIAL (10/01/2024 3:09 PM TURNER SPLITTER MACHINE OPERATOR) Blood Warren Vaughn MD HEMATOLOGY ORDERABLES Final Res ult * COMPREHENSIVE METABOLIC PANEL (10/01/2024 11:45 AM TURNER SPLITTER MACHINE OPERATOR) Blood Warren Vaughn MD CHEMISTRY ORDERABLES Final Resu lt from Last 3 Months Insurance MEDICARE PART A AND B [employer] Care Teams Hearing Instrument Specialist Relationship Specialty Start Date End Date Pawan Echevarria MD [address] [place] [phone] PCP - General Family Practice 11/29/23
--- OUTSIDE RECORDS SUMMARY | 2024-12-15 13:48 | XMS_ITS | Encounter Summary ---
Author Organization [facility] Address [address] [place] [address] Care Team Providers Care Configuration Management Specialist Name Role Phone Gavin Gross MD Primary Care Provider [phone] Pawan Echevarria MD Primary Care Provider [phone] Encounter Details Date Type Department Care Team (Late Contact Info) Description 03/14/2023 MyChart Message Enc [facility] Medical Group - Health System [address] [place], [place] [address] [employer], [facility] Provider Air Quality Message [...] Sex Assigned at Female 10/03/2024 2:27 PM ORACLE DBA Legal Sex Female 4:16 PM CDT Gender Identity Not on file Sexual Orientation Not on file documented as of this encounter Plan of Treatment Upcoming Encounters Date Type Department Care Team (Late Contact Info) Description 12/24/2024 2:00 PM CDT Office Visit [facility] Medical Group Multispecialty Care - [facility] [address] [facility] [place] [address] Abdon Flynn MD [facility]rd [facility] [address] [place] [address] documented as of this encounter Visit Diagnoses Not on filedocumented in this encounter Additional Health Concerns Infection Onset Date Last Indicated Resolved Time COVID-19 Rule Out 10/03/2024 10/03/2024 10/03/2024 5:30 PM ORACLE DBA COVID-19 Rule Out 10/04/2024 10/04/2024 10/04/2024 3:19 AM ORACLE DBA Influenza - Seasonal 10/04/2024 10/04/2024 025 12:32 AM ORACLE DBA Assessment Noted Time PHQ-9 Depression Total Score: 0 12/13/19 22 11:54 AM CDT documented as of this encounter Care Teams Configuration Management Specialist Relationship Specialty Start Date End Date Gavin Gross MD [address] [facility] [place] [address] PCP - General FAMILY PRACTICE 07/13/22 04/16/23 Pawan Echevarria MD [facility] [address] [place] [address] PCP - General FAMILY PRACTICE 04/17/23 documented as of this encounter
--- OUTSIDE RECORDS SUMMARY | 2024-12-15 13:48 | XMS_ITS | Encounter Summary ---
Author Organization [facility] - [facility] Address [facility] [place] [address] Care Team Providers Care Satellite Tv Technician Installer Name Role Phone Gavin Gross MD Primary Care Provider [phone] Pawan Echevarria MD Primary Care Provider [phone] Encounter Details Date Type Department Care Team (Late st Contact Info) Description 12/08/2022 MyChart Message Enc [facility] Medical Group Multispecialty Care - [address] [place] [address] Abdon Flynn MD [address] [place] [address] [address] [place] [address] Rx for Nebulizer Social History Tobacco Use [...] Sex Assigned at Female 10/03/2024 2:27 PM BUSINESS CONTINUITY COORDINATOR Legal Sex Female 4:16 PM CDT Gender [...] Description 12/24/2024 2:00 PM CDT Office Visit [facility] Medical Group Multispecialty Care - [facility] [address] [facility] [address] [place] [address] Abdon Flynn MD [address] [place] [address] [address] [place] [address] documented as of this encounter Visit Diagnoses Not on filedocumented in this encounter Additional Health Concerns Infection Onset Date Last Indicated Resolved Time COVID-19 Rule Out 10/03/2024 10/03/2024 10/03/2024 5:30 PM BUSINESS CONTINUITY COORDINATOR COVID-19 Rule Out 10/04/2024 10/04/2024 10/04/2024 3:19 AM BUSINESS CONTINUITY COORDINATOR Influenza - Seasonal 10/04/2024 10/04/2024 025 12:32 AM BUSINESS CONTINUITY COORDINATOR Assessment Noted Time PHQ-9 Depression Total Score: 0 12/13/19 22 11:54 AM CDT documented as of this encounter Care Teams Satellite Tv Technician Installer Relationship Specialty Start Date End Date Gavin Gross MD [address] [facility] [address] [place] [address] PCP - General FAMILY PRACTICE 07/13/22 04/16/23 Pawan Echevarria MD [address] [facility] [address] [place] [address] PCP - General FAMILY PRACTICE 04/17/23 documented as of this encounter
--- OUTSIDE RECORDS SUMMARY | 2024-12-15 13:48 | XMS_ITS | Encounter Summary ---
Author Organization [facility] Address [address] [place] [address] Phone Care Team Providers Care Territory Supervisor Name Role Phone Geeta Crisostomo MD Primary Care Provider [phone] Gavin Gross MD Primary Care Provider [phone] Pawan Echevarria MD Primary Care Provider [phone] Encounter Details Date Type Department Care Team [...] on file Legal Sex Female 3:43 AM HELP DESK ADMINISTRATOR Gender Identity Female 02/01/2022 8:55 AM CDT [...] on filedocumented in this encounter Care Teams Territory Supervisor Relationship Specialty Start Date End Date Geeta Crisostomo MD [address] [place] [address] PCP - General Family Medicine 03/08/18 03/28/22 Gavin Gross MD [address] [place] [address] PCP - General Family Medicine 03/29/22 06/05/23 Pawan Echevarria MD [address] [place] [address] [place] [address] PCP - General Family Medicine 06/06/23 documented as of this encounter
--- OUTSIDE RECORDS SUMMARY | 2024-12-15 13:48 | XMS_ITS | Encounter Summary ---
Author Organization [facility] - [facility] Address [facility] [place] [address] Care Team Providers Care Merchandise Flow Team Leader Name Role Phone Pawan Echevarria MD Primary Care Provider [phone] Encounter Details Date Type Department Care Team (Late st Contact Info) Description 10/03/2024 MyChart Message Enc [facility] Medical Group Multispecialty Care - Health system [address] [facility] [place] [address] Abdon Flynn MD [address] [place], [place] [address] [address] [place] [address] Fever/Shortness of Breath Social History Tobacco Use Types Packs/Day Years Used Date Smoking Tobacco: Former Cigarettes 0.3 6 0 02/25/1974 - 02/26/1980 Smokeless Tobacco: Never Alcohol Use Standard Drinks/Week Comments Yes 0 (1 standard drink = 0.6 oz pur e alcohol) minimal rare use [place] Utilities Answer Date Recorded In the past [...] Recorded Patient Health Questionnaire-2 Score 2 12/05/2022 [facility] of Occupat ional Health - Occupational [...] any time in the past 12 m [facility], were you homeless or living in a chcf (including now)? 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 2:27 PM CITY WELLNESS COORDINATOR Legal Sex Female 4:16 PM CDT Gender Identity Not on file Sexual Orientation Not on file documented as of this encounter Functional Status documented as of this encounter Mental Status * Question Answer Entry Date Author Status Because of a physical, mental, or emotional condition, do you have serious difficulty concentrating, remembering, or making decisions? No 10/04/2024 5:00 PM CITY WELLNESS COORDINATOR Nighat Prado R N Active documented in this encounter Plan of Treatment Upcoming Encounters Date Type Department Care Team (Late st Contact Info) Description 12/24/2024 2:00 PM CDT Office Visit [facility] Medical Group Multispecialty Care - Health system [address] [facility] [place] [address] Abdon Flynn MD [address] [place] [address] [address] [place] [address] documented as of this encounter Visit Diagnoses Not on filedocumented in this encounter Additional Health Concerns Infection Onset Date Last Indicated Resolved Time COVID-19 Rule Out 10/03/2024 10/03/2024 10/03/2024 5:30 PM CITY WELLNESS COORDINATOR COVID-19 Rule Out 10/04/2024 10/04/2024 10/04/2024 3:19 AM CITY WELLNESS COORDINATOR Influenza - Seasonal 10/04/2024 10/04/2024 025 12:32 AM CITY WELLNESS COORDINATOR Assessment Noted Time PHQ-9 Depression Total Score: 0 12/13/19 22 11:54 AM CDT documented as of this encounter Care Teams Merchandise Flow Team Leader Relationship Specialty Start Date End Date Pawan Echevarria MD [address] [facility] [address] [address] PCP - General FAMILY PRACTICE 04/17/23 documented as of this encounter
--- OUTSIDE RECORDS SUMMARY | 2024-12-15 13:48 | XMS_ITS | Encounter Summary ---
Author Organization [facility] - [facility] Address [facility] [place] [address] Care Team Providers Care Neighborhood Worker Name Role Phone Edilberto Crisostomo MD Primary Care Provider [phone] Gavin Gross MD Primary Care Provider [phone] Pawan Echevarria MD Primary Care Provider [phone] Encounter Details Date Type Department Care Team (Late st Contact Info) Description 03/22/2021 MyChart Message Enc [facility] Medical Group Multispecialty Care - [address] [place] [address] Abdon Flynn MD [address] [place] [address] [address] [place] [address] Referral Request Social History Tobacco Use Types [...] Sex Assigned at Female 10/03/2024 2:27 PM BUTTON ATTACHING MACHINE OPERATOR Legal Sex Female 4:16 PM CDT Gender Identity Not on file Sexual Orientation Not on file documented as of this encounter Plan of Treatment Upcoming Encounters Date Type Department Care Team (Late st Contact Info) Description 12/24/2024 2:00 PM CDT Office Visit [facility] Medical Group Multispecialty Care - [facility] [address] [facility] [place] [address] Abdon Flynn MD [facility] [facility] [address] [place] [address] documented as of this encounter Visit Diagnoses Not on filedocumented in this encounter Additional Health Concerns Infection Onset Date Last Indicated Resolved Time COVID-19 Rule Out 10/03/2024 10/03/2024 10/03/2024 5:30 PM BUTTON ATTACHING MACHINE OPERATOR COVID-19 Rule Out 10/04/2024 10/04/2024 10/04/2024 3:19 AM BUTTON ATTACHING MACHINE OPERATOR Influenza - Seasonal 10/04/2024 10/04/2024 025 12:32 AM BUTTON ATTACHING MACHINE OPERATOR documented as of this encounter Care Teams Neighborhood Worker Relationship Specialty Start Date End Date Edilberto Crisostomo MD [address] [place] [address] PCP - General FAMILY PRACTICE 12/10/17 07/12/22 Gavin Gross MD [address] [facility] [address] [place] [address] PCP - General FAMILY PRACTICE 07/13/22 04/16/23 [place] [address] [place] [address] [address] [place] [address] PCP - General FAMILY PRACTICE 04/17/23 documented as of this encounter
[2024-12-15 13:53] LABS: pH ABG 7.286 (7.350-7.450)
[2024-12-15 13:54] LABS: PCO2 ABG 77.9 mmHg (35.0-45.0); PO2 ABG < 27.0 mmHg (80.0-100.0)
[2024-12-15 13:55] LABS: Device BIPAP; Modified Allen's Test Pass; Oxyhemoglobin 24.5 % THb (90.0-100.0); Site Drawn RIGHT BRACHIAL
[2024-12-15 13:57] LABS: Inspiratory Pressure 12 cmH2O
[2024-12-15 13:58] LABS: Expiratory Pressure 6 cmH2O
[2024-12-15 14:35] LABS: NT Pro B Type Natriuretic Pept 3230 pg/mL (19.9-100)
--- NOTE | 2024-12-15 15:02 | ED_ITS ---
HPI - SOB/Dyspnea General Chief Complaint: Shortness of Breath/Dyspnea Stated Complaint: dyspnea Time Seen by Provider: 12/15/24 12:31 History of Present Illness HPI Narrative: Patient is an 84-year-old female with history of metastatic breast cancer that presents ER with shortness of breath and confusion. Has a fentanyl pain patch that was prescribed by [facility] 25 mcg. The family increased it to 37.5 mcg but patient then began sleeping for several days. The change is a pain patch this morning back to 25 mcg patch. Patient is more awake but she was hypoxic at the facility and sent here for further evaluation. Patient has edema to her hands/feet/face which family reports is new and increasing. Related Data Home Medications ?Medication ?Instructions ?Recorded ?Confirmed ?Last Taken ?Type umeclidinium 62.5 mcg-vilanterol 1 inh inhalation DAILY 08/24/21 12/15/24 12/03/24 History 25 mcg/actuation powdr for inhalation (Anoro Ellipta) metoprolol succinate 25 mg 25 mg PO QHS 09/28/23 12/15/24 12/03/24 History tablet,extended release 24 hr calcium 500 mg 2 tablet PO DAILY 01/21/24 12/15/24 12/03/24 History (carb,gluconate)-magnesium 250 mg (gluc,oxide) tablet (Calcium Magnesium) magnesium 200 mg tablet 200 mg PO DAILY 01/21/24 12/15/24 12/03/24 History multivitamin (Daily Multi-Vitamin 1 tablet PO DAILY 01/21/24 12/15/24 12/03/24 History tablet) sodium chloride 3 % for 25 ml inhalation Q4-6H PRN 03/27/24 12/15/24 Unknown History nebulization sob/wheezing albuterol sulfate 2.5 mg/3 mL 2.5 mg continuous nebulization Q6H 07/31/24 12/15/24 12/03/24 History (0.083 %) solution for nebulization PRN sob/wheezing Alkadophilus 2 cap PO DAILY 08/24/24 12/15/24 12/03/24 History cholecalciferol (vitamin D3) 75 1,000 unit PO DAILY 08/24/24 12/15/24 12/03/24 History mcg (3,000 unit) tablet empagliflozin 10 mg tablet 10 mg PO DAILY 10/16/24 12/15/2412/03/25 History (Jardiance) sertraline 25 mg tablet 50 mg PO DAILY 10/16/24 12/15/24 12/03/24 History sacubitril 24 mg-valsartan 26 mg 1 tablet PO Q12H 11/27/24 12/15/24 12/03/24 History tablet (Entresto) diclofenac potassium 50 mg tablet 50 mg PO Q12H PRN pain 12/04/24 12/15/24 12/03/24 History flecainide 100 mg tablet 100 mg PO Q12H 12/04/24 12/15/24 Unknown History Allergies Allergy/AdvReac Type Severity Reaction Status Date / Time dog dander Allergy Unknown Asthma Verified 12/15/24 16:25 levofloxacin AdvReac Intermediate Hallucinati Verified 12/15/24 16:25 ng Review of Systems 2 Review of Systems: All systems reviewed & are unremarkable except as noted in HPI and below Constitutional: Constitutional: Reports no additional constitutional complaints Cardiovascular: Cardiovascular: Reports no additional cardiovascular complaints Respiratory: Respiratory: Reports no additional respiratory complaints Gastrointestinal: Gastrointestinal: Reports no additional gastrointestinal complaints [facility] Past Medical History Medical History Invasive ductal carcinoma of left breast Chronic hypoxic respiratory failure, on home oxygen therapy Essential hypertension COPD with emphysema Mitral valve regurgitation [id number] on echocardiogram January 2020 Combined systolic and diastolic cardiac dysfunction Nonischemic cardiomyopathy With echocardiogram 2019 demonstrated EF of 35-40%, grade 1 diastolic dysfunction, global hypokinesis of left ventricle, mild left atrial enlargement, [id number] mitral valve regurgitation, mild tricuspid regurgitation managed by Dr. 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 She has 2 daughters who live locally. She had a brief smoking history when she was young. She rarely drinks alcohol in minimal amounts. She denies history of illicit substance use. Code status: Full code Surrogate decision maker: Berenice Chang (daughter) Smoking packs per day: 0.5 Smoking cigarettes per day: 10.0 Years smoked: 10 Smoking pack-years: 5.00 Smoking status: Former smoker Tobacco type: cigarettes Second hand tobacco smoke exposure: Yes Alcohol intake: never Drinks per week: 0 Substance use: never Substance use type: does not use Do You Feel Safe in your Home?: Yes Lack of Transportation: No Lack of Food: Never True Current Housing: I Have Housing Concerned About Future Housing: No Difficulty Paying Gas/Electric Bills: No Difficulty Paying for Meds: No Currently Unemployed: No Education: Associate Degree Difficulty w/ Childcare or Family Care: No Living arrangements: alone Spiritual care concerns: No Exam 2 Narrative: GENERAL: Chronically ill-appearing, well-nourished, and in no acute distress. HEAD: Normocephalic, atraumatic. EYES: PERRL and EOMI. Periorbital edema noted ENT: Mucous membranes moist. NECK: Supple. CHEST: Clear to auscultation. No respiratory distress. HEART: Regular rate and rhythm. Normal peripheral pulses. ABDOMEN: Soft, nontender, nondistended. EXTREMITIES: Normal range of motion. 2+ edema. Tender palpation left wrist and also limited range of motion. SKIN: Warm, dry, no rash. NEURO: Alert and oriented x2. Course Course Emergency Course: Patient with hypercapnia. On BiPAP. Admit to hospitalist service. Diuresis ordered. Patient also had urinary retention so Guan placed. Wrist splinted. Patient developed fever after admission so blood cultures and IV antibiotics were ordered. Vital Signs Vital signs: Vital Signs Temperature 97.2 F L 12/15/24 11:42 Pulse Rate 77 12/15/24 11:42 Respiratory Rate 14 12/15/24 11:42 Blood Pressure 161/84 H 12/15/24 11:42 Pulse Oximetry 100 12/15/24 11:42 Oxygen Delivery BiPAP 12/15/24 11:42 Temperature 98.8 F 12/15/24 20:00 Pulse Rate 77 12/15/24 20:00 Respiratory Rate 21 H 12/15/24 20:00 Blood Pressure 123/50 L 12/15/24 20:00 Pulse Oximetry 93 12/15/24 20:00 Oxygen Delivery BiPAP 12/15/24 17:30 MDM - SOB/Dyspnea Lab Data 12/15/24 12:09 12/15/24 12:09 Labs: Lab Results 12/15/24 12/15/24 12/15/24 Range/Units 12:09 12:29 13:38 WBC 13.8 H (4.5-10.0) K/mm3 RBC 4.59 (4.2-5.4) M/mm3 Hgb 13.4 (12.0-15.0) g/dL Hct 44.8 (37.0-47.0) % MCV 97.6 (80-100) fl MCH 29.2 (26-34) pg MCHC 29.9 L (32-36) g/dl RDW 14.6 H (11.5-14.5) % Plt Count 254 (150-375) k/mm3 MPV 9.7 (7.4-10.4) fl Immature Gran % (Auto) 1.5 H (0-0.5) % Neut % (Auto) 79.2 H (45.5-73.1) % Lymph % (Auto) 9.3 L (18.3-44.2) % [place] % (Auto) 9.3 H (2.6-8.5) % Eos % (Auto) 0.3 (0-4.4) % Baso % (Auto) 0.4 (0.2-1.2) % Lymph # (Auto) 1.28 (0.9-3.2) K/mm3 [place] # (Auto) 1.3 H (0.1-0.6) K/mm3 Eos # (Auto) 0.0 (0-0.3) K/mm3 Baso # (Auto) 0.1 (0.0-0.1) K/mm3 Abs Immat Gran (auto) 0.21 H (0.00-0.031) K/mm3 Absolute Neuts (auto) 10.9 H (1.3-6.7) K/mm3 Absolute Nucleated RBC 0.000 (0.0-0.012) K/mm3 Band Neutrophils % Not Reportable Nucleated RBC % 0.0 (0.0-0.2) % Platelet Estimate Adequate (Adequate) Anisocytosis 1+ Schistocytes None seen PT 13.3 (11.1-14.7) Seconds INR 1.0 APTT 23.8 (22.3-36.8) Seconds Methemoglobin 0.9 (0-1.5) %THb Expiratory Pressure 6 cmH2O Inspiratory Pressure 12 cmH2O Sodium 135 L (137-145) mmol/L Potassium 4.8 (3.4-5.0) mmol/L Chloride 95 L (98-107) mmol/L Carbon Dioxide 34 H (22-30) mmol/L Anion Gap 6 (4-12) mmol/L BUN 20 H (7-17) mg/dL Creatinine 0.62 L (0.7-1.0) mg/dL Estim Creat Clear Calc 48 ml/min Estimated GFR > 60 (59 - ) Glucose 103 (65-110) mg/dL Lactic Acid 0.8 (0.7-2.0) mmol/L Calcium 8.9 (8.4-10.2) mg/dL Total Bilirubin 0.7 (0.2-1.3) mg/dL AST 42 H (14-36) U/L ALT 39 H (6-35) U/L Alkaline Phosphatase 100 (38-126) U/L NT-Pro-B Natriuret Pep 3230 H (19.9-100) pg/mL Total Protein 7.0 (6.3-8.2) g/dL Albumin 3.9 (3.5-5.1) g/dL Urine Color Yellow (Yellow) Urine Appearance Clear (Clear) Urine pH 5.5 (5.0-9.0) Ur Specific [place] 1.025 (1.001-1.035) Urine Protein Negative (Negative) mg/dL Urine Glucose (UA) 3+ H (Negative) mg/dL Urine Ketones Negative (Negative) mg/dL Ur Blood (Man) Negative (Negative) Urine Nitrate Negative (Negative) Urine Bilirubin Negative (Negative) Urine Urobilinogen 0.2 (<2.0) mg/dL Leukocyte Esterase Rfl Negative (Negative) ADEEL/UL Influenza A (RT-PCR) Negative (Negative) Influenza B (RT-PCR) Negative (Negative) RSV (RT-PCR) Negative (Negative) SARS-CoV-2 RNA (RT-PCR) Negative (Negative) ABG Data ABG results: 12/15/24 13:38 Puncture Site Right brachial ABG pH 7.286 L* ABG pCO2 77.9 H* ABG pO2 < 27.0 L* ABG HCO3 36.3 H ABG Base Excess 7.0 Oxyhemoglobin 24.5 L* Carboxyhemoglobin 1.4 Reduced Hemoglobin 73.2 H Total Hemoglobin 12.8 O2 Delivery Device Bipap O2 Liters/Min Not Reportable FiO2 30 Imaging Data Radiologist's impression: ITS Impressions Chest X-Ray 12/15/24 12:51 Impression: 1: Diffuse bilateral airspace disease which may represent edema or pneumonia. Wrist X-Ray 12/15/24 12:55 IMPRESSION: 1. Nondisplaced avulsion fractures of the ulnar styloid. 2. Age-indeterminate nondisplaced fracture of radial styloid. 3. Small bone fragment dorsal to the carpus on the lateral view, which may be an avulsion fracture of dorsal pole of triquetrum. 4. Polyarticular osteoarthritis. ECG Data EKG #1: ECG completion date: 12/15/24 ECG completion time: 11:58 EKG Interpretation: normal rate (75), sinus rhythm, PACs and LBBB Critical Care Time Critical Care Time Critical Care Time: Yes Total Critical Care Time: 35 Discharge Plan Discharge Clinical Impression: Acute hypercapnic respiratory failure, CHF (congestive heart failure), Pneumonia Patient Disposition: Still a Patient Condition: Stable
[2024-12-15] MEDS: FUROSEMIDE INJ 40 MG/4 ML VIAL IV PUSH ×2 (15:14→20:19)
--- NOTE | 2024-12-15 17:39 | ADMGEN ---
This patient, Nora Tejeda, was admitted to IMU Room 205-02. Patient/family oriented to hospital policies and general routines including ID bracelet, bed and alarms, visiting hours, pain management, procedures, bathroom and other care routines, personal items, smoking policy, room service/diet, and visiting hours. Information on how to activate the Rapid Response Team has been discussed. Patient/Family are encouraged to report perceived risks to care and to ask questions if they do not understand what they are told or what they should do.
[2024-12-15] MEDS: AZITHROMYCIN 500 MG/NS 250 ML 500 MG/250 ML BAG 250 MG IVPB (20:19)
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
[2024-12-15 20:57] LABS: Alveolar/Arterial O2 Gradient 138.7 mmHg; Base Excess ABG 8.7 mEq/l (+/-2.0); Carboxyhemoglobin 1.4 % THb (0-2.0); Fractional Inspired Oxygen 44 %; HCO3 ABG 37.3 mEq/l (22.0-26.0); Methemoglobin ABG 0.3 %THb (0-1.5); Oxygen Content ABG 18.2 %vol (16.0-22.0); Oxygen Saturation ABG 96.3 % (95.0-100.0); Oxyhemoglobin 95.4 % THb (90.0-100.0); PO2 ABG 92.6 mmHg (80.0-100.0); Reduced Hemoglobin 2.9 %THb (0-5.0); Total Hemoglobin 13.5 g/dL (12.0-18.0); pH ABG 7.331 (7.350-7.450)
[2024-12-15 21:07] LABS: Device NASAL CANNULA; Modified Allen's Test Pass; PCO2 ABG 72.3 mmHg (35.0-45.0); Site Drawn RIGHT RADIAL
[2024-12-15] MEDS: CEFEPIME 2 GM/NS 50 ML 2 GM/50 ML BAG IVPB (21:47)
[2024-12-15] MEDS: VANCOMYCIN 1,500 MG/NS 500 ML 1,500 MG/500 ML BAG 250 MG IVPB (22:19)
[2024-12-15] MEDS: FAMOTIDINE 20 MG TABLET 40 MG PO (22:22)
[2024-12-15] MEDS: MIRTAZAPINE 7.5 MG TABLET PO (22:22)
[2024-12-15] MEDS: ALPRAZolam (*CRX) 0.25 MG TABLET PO (22:22)
[2024-12-15 23:54] LABS: MRSA (PCR) NOT DETECTED (NOT DETECTE)
[2024-12-16] VITALS (28 sets, daily range): BP systolic 93–133; BP diastolic 38–53; PULSE 60–93; RESP 16–27; TEMP 36.4–37.4; O2SAT 93–100
[2024-12-16] MEDS: IPRATROPIUM 0.5 MG/ALBUTEROL SULFATE 2.5 MG AMPUL.NEB 3 ML INHALATION ×4 (02:45→20:07)
[2024-12-16 04:29] LABS: Basophils Percent Auto 0.2 % (0.2-1.2); Eosinophils Percent Auto 0.2 % (0-4.4); Hematocrit 38.4 % (37.0-47.0); Hemoglobin 11.4 g/dL (12.0-15.0); Immature Granulocyte Absolute 0.06 K/mm3 (0.00-0.031); Immature Granulocyte Percent A 0.6 % (0-0.5); Lymphocytes Absolute Auto 1.47 K/mm3 (0.9-3.2); Lymphocytes Percent Auto 14.8 % (18.3-44.2); Mean Corpuscular HGB Conc 29.7 g/dl (32-36); Mean Corpuscular Hemoglobin 28.2 pg (26-34); Mean Platelet Volume 9.4 fl (7.4-10.4); Monocytes Absolute Auto 1.3 K/mm3 (0.1-0.6); Monocytes Percent Auto 13.3 % (2.6-8.5); Neutrophils Absolute Auto 7.1 K/mm3 (1.3-6.7); Neutrophils Percent Auto 70.9 % (45.5-73.1); Platelet Count Result 191 k/mm3 (150-375); Red Blood Count 4.04 M/mm3 (4.2-5.4); Red Cell Distribution Width 14.1 % (11.5-14.5)
[2024-12-16 04:41] LABS: Anion Gap 3 mmol/L (4-12); Blood Urea Nitrogen 18 mg/dL (7-17); Calcium 8.1 mg/dL (8.4-10.2); Carbon Dioxide 38 mmol/L (22-30); Chloride 93 mmol/L (98-107); Estimated CRCL calculation 55 ml/min; Estimated Glomerular Filt Rate > 60; Glucose 110 mg/dL (65-110); Potassium 3.6 mmol/L (3.4-5.0); Sodium 134 mmol/L (137-145)
[2024-12-16 05:05] LABS: Procalcitonin 0.3 ng/mL
[2024-12-16 05:23] LABS: Alveolar/Arterial O2 Gradient 69.6 mmHg; Base Excess ABG 10.3 mEq/l (+/-2.0); Fractional Inspired Oxygen 30 %; HCO3 ABG 37.9 mEq/l (22.0-26.0); Oxygen Content ABG 15.7 %vol (16.0-22.0); Oxygen Saturation ABG 91.9 % (95.0-100.0); Oxyhemoglobin 91.2 % THb (90.0-100.0); PO2 ABG 66.2 mmHg (80.0-100.0); PO2 FiO2 Ratio Arterial Blood 2.21 %; Total Hemoglobin 12.2 g/dL (12.0-18.0); pH ABG 7.374 (7.350-7.450)
[2024-12-16 05:37] LABS: Device NON-INVASIVE VENT; Modified Allen's Test Pass; PCO2 ABG 66.5 mmHg (35.0-45.0); Site Drawn RIGHT RADIAL
[2024-12-16 05:44] LABS: Non-Invasive Vent Rate 20 /MIN
[2024-12-16 05:45] LABS: Non-Invasive Expiratory Pressure 6 CMH2O; Non-Invasive Inspiratory Pressure 12 CMH2O
--- NOTE | 2024-12-16 08:48 | P.CONOP_ITS ---
<Statement entered by Vladislav Jean MD - 12/16/24 12:37> Dr. Jean: History and physical, radiographs reviewed. Nondisplaced left wrist avulsion fractures. Agree with wrist splint. Assessment and Plan Assessment and plan (1) Nondisplaced fracture of left radial styloid process, initial encounter for closed fracture: Code(s): S52.515A - Nondisplaced fracture of left radial styloid process, initial encounter for closed fracture <MATTHEW Yousif - Last Filed: 12/16/24 09:02> Status: Acute <MATTHEW Yousif - Last Filed: 12/16/24 09:02> Assessment and Plan: Radiographs of the left wrist reveal nondisplaced avulsion fractures of the ulnar styloid, nondisplaced fracture of radial styloid, possible triquetrum fracture and polyarticular osteoarthritis. The fracture type and injury as well as radiographs discussed with the patient. Operative and nonoperative treatment options reviewed. Recommended nonoperative treatment. Risk of nonunion, malunion or late displacement discussed. Stiffness, pain and possible dysfunction of the joint discussed. Fracture precautions and activity restrictions reviewed. The patient verbalizes understanding. Okay to remove soft splint and transition to velcro splint when available. Ice. Elevate. PT/OT. PWB of the LUE with splint in place. Pain control. No additional pain medication recommended given chronic use and recent complications with increased dose. Will continue to follow. <MATTHEW Yousif - Last Filed: 12/16/24 09:02> (2) Left ulnar fracture: Qualifiers: Encounter type: initial encounter Fracture alignment: n ondisplaced Fracture type: closed Ulna location: styloid process Qualified Code(s): S52.615A - Nondisplaced fracture of left ulna styloid process, initial encounter for closed fracture <MATTHEW Yousif - Last Filed: 12/16/24 09:02> Code(s): S52.202A - Unspecified fracture of shaft of left ulna, initial encounter for closed fracture <MATTHEW Yousif - Last Filed: 12/16/24 09:02> Status: Acute <MATTHEW Yousif - Last Filed: 12/16/24 09:02> Assessment and Plan: Reviewed history, exam, radiographs and current labs with attending MD and covering surgeon, Dr. Jean, who agrees with current plan as indicated above. No further recommendations from Dr. Jean at this time. 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 She was recently admitted for a COPD exacerbation and T6 compression fracture. She was discharged home with family. She was noted to be more lethargic due to pain medication increased as well as more labored breathing. She was complaining of left wrist pain as well. Radiographs in the emergency room of the left wrist reveal ulnar and radial styloid nondisplaced fractures. Polyarticular arthritis noted as well. The patient was admitted for further medical care with orthopedic consult. She was placed in a fiberglass splint in the emergency room. <MATTHEW Yousif - Last Filed: 12/16/24 09:02> Review of Systems 2 Review of Systems: All systems reviewed & are unremarkable except as noted in HPI and below <MATTHEW Yousif - Last Filed: 12/16/24 09:02> [facility] Past Medical History Medical History: Medical History (Updated 12/16/24 @ 08:59 by MATTHEW Yousif) Nondisplaced fracture of left radial styloid process, initial encounter for closed fracture Invasive ductal carcinoma of left breast With recent recurrence with diagnostic confirmation November 20, 2024 Chronic hypoxic respiratory failure, on home oxygen therapy Essential hypertension COPD with emphysema Mitral valve regurgitation Plov-ia-syawughe on echocardiogram January 2020 Combined systolic and diastolic cardiac dysfunction Nonischemic cardiomyopathy With echocardiogram 2019 demonstrated EF of 35-40%, grade 1 diastolic dysfunction, global hypokinesis of left ventricle, mild left atrial enlargement, [id number] mitral valve regurgitation, mild tricuspid regurgitation managed by Dr. Plaza Osteoporosis Achilles tendinitis of left lower extremity Bronchiectasis Mycobacterium avium infection Lumbar radiculopathy, right <MATTHEW Yousif - Last Filed: 12/16/24 09:02> Surgical History Surgical History: Surgical History History of lumpectomy of left breast (01/2024) History of sentinel lymph node dissection (01/2024) History of cardiac catheterization (2019) Normal coronary arteries <MATTHEW Yousif - Last Filed: 12/16/24 09:02> Family History Family History: Family History Sibling Family history of tuberculosis Mother Diabetes mellitus <MATTHEW Yousif - Last Filed: 12/16/24 09:02> Social History Social History: Social History Social History: 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 She recently moved in with 1 of her 2 daughters. She had a brief smoking history when she was young. She rarely drinks alcohol in minimal amounts. She denies history of illicit substance use. Code status: DNR/DNI (per patient request) Surrogate decision maker: Berenice Chang (daughter) Smoking packs per day: 0.5 Smoking cigarettes per day: 10.0 Years smoked: 10 Smoking pack-years: 5.00 Smoking status: Former smoker Tobacco type: cigarettes Second hand tobacco smoke exposure: Yes Alcohol intake: never Drinks per week: 0 Substance use: never Substance use type: does not use Do You Feel Safe in your Home?: Yes Lack of Transportation: No Lack of Food: Never True Current Housing: I Have Housing Concerned About Future Housing: No Difficulty Paying Gas/Electric Bills: No Difficulty Paying for Meds: No Currently Unemployed: No Education: Associate Degree Difficulty w/ Childcare or Family Care: No Living arrangements: alone Spiritual care concerns: No <MATTHEW Yousif - Last Filed: 12/16/24 09:02> Meds Home Medications and Allergies Home medications: Home Medications ?Medication ?Instructions ?Recorded ?Confirmed ?Type umeclidinium 62.5 mcg-vilanterol 1 inh inhalation DAILY 08/24/21 12/15/24 History 25 mcg/actuation powdr for inhalation (Anoro Ellipta) albuterol sulfate 90 mcg/actuation 2 inh inhalation Q4H PRN shortness 03/06/22 12/15/24 Rx aerosol inhaler (Ventolin HFA) of breath or wheezing #6.7 grams metoprolol succinate 25 mg 25 mg PO QHS 09/28/23 12/15/24 History tablet,extended release 24 hr calcium 500 mg 2 tablet PO DAILY 01/21/24 12/15/24 History (carb,gluconate)-magnesium 250 mg (gluc,oxide) tablet (Calcium Magnesium) magnesium 200 mg tablet 200 mg PO DAILY 01/21/24 12/15/24 History multivitamin (Daily Multi-Vitamin 1 tablet PO DAILY 01/21/24 12/15/24 History tablet) sodium chloride 3 % for 25 ml inhalation Q4-6H PRN 03/27/24 12/15/24 History nebulization sob/wheezing albuterol sulfate 2.5 mg/3 mL 2.5 mg continuous nebulization Q6H 07/31/24 12/15/24 History (0.083 %) solution for nebulization PRN sob/wheezing ondansetron HCl 4 mg tablet 4 mg PO Q6H PRN nausea and 08/13/24 12/15/24 Rx vomiting #30 tabs Alkadophilus 2 cap PO DAILY 08/24/24 12/15/24 History cholecalciferol (vitamin D3) 75 1,000 unit PO DAILY 08/24/24 12/15/24 History mcg (3,000 unit) tablet alprazolam 0.25 mg tablet 0.25 mg PO TID PRN anxiety #90 tabs 10/16/24 12/15/24 Rx empagliflozin 10 mg tablet 10 mg PO DAILY 10/16/24 12/15/24 History (Jardiance) famotidine 40 mg tablet 40 mg PO QHS #90 tabs 10/16/24 12/15/24 Rx mirtazapine 7.5 mg tablet 7.5 mg PO QHS #90 tabs 10/16/24 12/15/24 Rx sertraline 25 mg tablet 50 mg PO DAILY 10/16/24 12/15/24 History sacubitril 24 mg-valsartan 26 mg 1 tablet PO Q12H 11/27/24 12/15/24 History tablet (Entresto) gabapentin 300 mg capsule 300 mg PO BID #60 caps 12/02/24 12/15/24 Rx diclofenac potassium 50 mg tablet 50 mg PO Q12H PRN pain 12/04/24 12/15/24 History flecainide 100 mg tablet 100 mg PO Q12H 12/04/24 12/15/24 History hydrocodone 5 mg-acetaminophen 325 1 tablet PO Q6H PRN Pain Rated 4-6 12/06/24 12/15/24 Rx mg tablet #40 tabs lidocaine 5 % topical patch 1 patch transdermal DAILY #15 ea 12/06/24 12/15/24 Rx (Lidoderm) methylprednisolone 4 mg tablets in See Rx Instructions PO .COMPLEX 12/06/24 12/15/24 Rx a dose pack #21 ea fentanyl 37.5 mcg/hour transdermal 1 patch transdermal Q72H #5 ea 12/08/24 12/15/24 Rx patch <MATTHEW Yousif - Last Filed: 12/16/24 09:02> Allergies/Adverse reactions: Allergies Allergy/AdvReac Type Severity Reaction Status Date / Time dog dander Allergy Unknown Asthma Verified 12/15/24 16:25 levofloxacin AdvReac Intermediate Hallucinati Verified 12/15/24 16:25 ng <MATTHEW Yousif - Last Filed: 12/16/24 09:02> Vital Signs Vital Signs - 24 hr 12/15/24 11:42 12/15/24 11:50 12/15/24 11:50 Temperature 36.2 C L Pulse Rate 77 77 95 Respiratory Rate 14 27 H 24 H Blood Pressure 161/84 H 161/84 H Pulse Oximetry 100 99 88 L Oxygen Delivery BiPAP BiPAP Oxygen Flow Rate Fraction of Inspired Oxygen 12/15/24 12:00 12/15/24 12:25 12/15/24 12:26 Temperature Pulse Rate 77 Respiratory Rate 17 Blood Pressure 116/58 L Pulse Oximetry 100 92 93 Oxygen Delivery BiPAP BiPAP Oxygen Flow Rate Fraction of Inspired Oxygen 12/15/24 13:44 12/15/24 13:47 12/15/24 13:50 Temperature Pulse Rate 74 73 74 Respiratory Rate 30 H 25 H 22 H Blood Pressure 156/90 H 130/58 L Pulse Oximetry 98 95 96 Oxygen Delivery BiPAP Oxygen Flow Rate Fraction of Inspired Oxygen 12/15/24 14:00 12/15/24 14:15 12/15/24 14:30 Temperature Pulse Rate 76 75 75 Respiratory Rate 22 H 20 18 Blood Pressure 135/59 L 126/56 L Pulse Oximetry 97 96 Oxygen Delivery Oxygen Flow Rate Fraction of Inspired Oxygen 12/15/24 14:31 12/15/24 14:45 12/15/24 14:46 Temperature Pulse Rate 74 77 76 Respiratory Rate 21 H 23 H 23 H Blood Pressure 139/60 141/58 H Pulse Oximetry 96 97 Oxygen Delivery Oxygen Flow Rate Fraction of Inspired Oxygen 12/15/24 15:00 12/15/24 15:16 12/15/24 15:31 Temperature Pulse Rate 77 83 78 Respiratory Rate 23 H 20 18 Blood Pressure 131/58 L 131/72 129/69 Pulse Oximetry 96 94 94 Oxygen Delivery Oxygen Flow Rate Fraction of Inspired Oxygen 12/15/24 16:01 12/15/24 17:30 12/15/24 18:00 Temperature 38.4 C H Pulse Rate 76 90 Respiratory Rate 21 H 28 H Blood Pressure 120/54 L Pulse Oximetry 94 95 Oxygen Delivery BiPAP Oxygen Flow Rate Fraction of Inspired Oxygen 12/15/24 20:00 12/15/24 20:00 12/15/24 20:00 Temperature 37.1 C Pulse Rate 77 79 Respiratory Rate 21 H Blood Pressure 123/50 L Pulse Oximetry 93 95 Oxygen Delivery High Flow Nasal Cannula Oxygen Flow Rate 6 Fraction of Inspired Oxygen 12/15/24 21:43 12/15/24 21:45 12/15/24 22:00 Temperature Pulse Rate 78 72 Respiratory Rate 25 H Blood Pressure Pulse Oximetry 96 95 Oxygen Delivery Nasal Cannula BiPAP Oxygen Flow Rate 6 Fraction of Inspired Oxygen 12/15/24 23:19 12/16/24 00:00 12/16/24 00:00 Temperature 37.1 C Pulse Rate 72 76 69 Respiratory Rate 19 20 Blood Pressure 123/47 L Pulse Oximetry 98 100 Oxygen Delivery BiPAP Oxygen Flow Rate Fraction of Inspired Oxygen 30 12/16/24 02:00 12/16/24 02:52 12/16/24 02:59 Temperature Pulse Rate 74 78 78 Respiratory Rate 21 H 21 H Blood Pressure Pulse Oximetry 95 Oxygen Delivery BiPAP Oxygen Flow Rate Fraction of Inspired Oxygen 12/16/24 03:42 12/16/24 04:00 12/16/24 04:00 Temperature 36.6 C Pulse Rate 70 65 76 Respiratory Rate 18 20 Blood Pressure 123/49 L Pulse Oximetry 94 93 Oxygen Delivery BiPAP Oxygen Flow Rate Fraction of Inspired Oxygen 30 12/16/24 05:06 12/16/24 06:00 12/16/24 07:46 Temperature 36.8 C Pulse Rate 72 71 67 Respiratory Rate 21 H 27 H Blood Pressure 133/53 L Pulse Oximetry 93 97 Oxygen Delivery BiPAP Oxygen Flow Rate Fraction of Inspired Oxygen <MORENA YousifP - Last Filed: 12/16/24 09:02> Exam 2 Const: General: comfortable and no acute distress <MATTHEW Yousif - Last Filed: 12/16/24 09:02> HENMT: Mouth: Yes moist mucous membranes <MATTHEW Yousif - Last Filed: 12/16/24 09:02> Eyes: General: appearance normal, both eyes and all related structures < MATTHEW Yousif - Last Filed: 12/16/24 09:02> Neck: Neck: supple and no JVD <MORENA YousifP - Last Filed: 12/16/24 09:02> Resp: Effort & Inspection: able to speak in complete sentences and other (6L NC ) <MATTHEW Yousif - Last Filed: 12/16/24 09:02> Cardio: Rate: regular rate <MATTHEW Yousif - Last Filed: 12/16/24 09:02> Rhythm: regular rhythm <MATTHEW Yousif - Last Filed: 12/16/24 09:02> GI: Inspection: non-distended <MORENA YousifP - Last Filed: 12/16/24 09:02> GI Palp: Yes Soft to palpation and No Tenderness to palpation present (GI) < MORENA YousifP - Last Filed: 12/16/24 09:02> Urinary Catheter: Urinary Catheter: patent and draining and urine clear < Emily Fried [facility] - Last Filed: 12/16/24 09:02> Neuro: General: gait normal <Emily Fried [facility] - Last Filed: 12/16/24 09:02> Cognition (Neuro): normal cognition <Emily Fried [facility] - Last Filed: 12/16/24 09:02> Speech: normal speech <Emily Fried [facility] - Last Filed: 12/16/24 09:02> Extrem: Left upper extremity: wrist abnormal to inspection (fiberglass splint in place, unable to fully assess. ), tenderness (diffuse ) and abnormal ROM (limited due to splint in place. ) and hand normal to inspection, normal capillary refill, neuromotor exam normal, neurosensory exam normal, vascular exam radial pulse present Details: 2+ and normal ROM of fingers; no tenderness, no unusual warmth and no swelling <MORENA YousifP - Last Filed: 12/16/24 09:02> Psych: Mental Status: mental status grossly normal <Emily Fried [facility] - Last Filed: 12/16/24 09:02> Affect: normal affect <Emily Fried [facility] - Last Filed: 12/16/24 09:02> Results Labs Result Diagrams: 12/16/24 04:12 12/16/24 04:12 <Emily Fried [facility] - Last Filed: 12/16/24 09:02> Labs: Abnormal lab results 12/15/24 12/15/24 12/15/24 Range/Units 12:09 12:29 13:38 WBC 13.8 H (4.5-10.0) K/mm3 RBC (4.2-5.4) M/mm3 Hgb (12.0-15.0) g/dL MCHC 29.9 L (32-36) g/dl RDW 14.6 H (11.5-14.5) % Immature Gran % (Auto) 1.5 H (0-0.5) % Neut % (Auto) 79.2 H (45.5-73.1) % Lymph % (Auto) 9.3 L (18.3-44.2) % [place] % (Auto) 9.3 H (2.6-8.5) % [place] # (Auto) 1.3 H (0.1-0.6) K/mm3 Abs Immat Gran (auto) 0.21 H (0.00-0.031) K/mm3 Absolute Neuts (auto) 10.9 H (1.3-6.7) K/mm3 ABG pH 7.286 L* (7.350-7.450) ABG pCO2 77.9 H* (35.0-45.0) mmHg ABG pO2 < 27.0 L* (80.0-100.0) mmHg ABG HCO3 36.3 H (22.0-26.0) mEq/l ABG O2 Saturation (95.0-100.0) % ABG O2 Content (16.0-22.0) %vol Oxyhemoglobin 24.5 L* (90.0-100.0) % THb Reduced Hemoglobin 73.2 H (0-5.0) %THb Sodium 135 L (137-145) mmol/L Chloride 95 L (98-107) mmol/L Carbon Dioxide 34 H (22-30) mmol/L Anion Gap (4-12) mmol/L BUN 20 H (7-17) mg/dL Creatinine 0.62 L (0.7-1.0) mg/dL Calcium (8.4-10.2) mg/dL AST 42 H (14-36) U/L ALT 39 H (6-35) U/L NT-Pro-B Natriuret Pep 3230 H (19.9-100) pg/mL Urine Glucose (UA) 3+ H (Negative) mg/dL 12/15/24 12/16/24 12/16/24 Range/Units 20:48 04:12 05:04 WBC (4.5-10.0) K/mm3 RBC 4.04 L (4.2-5.4) M/mm3 Hgb 11.4 L (12.0-15.0) g/dL MCHC 29.7 L (32-36) g/dl RDW (11.5-14.5) % Immature Gran % (Auto) 0.6 H (0-0.5) % Neut % (Auto) (45.5-73.1) % Lymph % (Auto) 14.8 L (18.3-44.2) % [place] % (Auto) 13.3 H (2.6-8.5) % [place] # (Auto) 1.3 H (0.1-0.6) K/mm3 Abs Immat Gran (auto) 0.06 H (0.00-0.031) K/mm3 Absolute Neuts (auto) 7.1 H (1.3-6.7) K/mm3 ABG pH 7.331 L (7.350-7.450) ABG pCO2 72.3 H* 66.5 H* (35.0-45.0) mmHg ABG pO2 66.2 L (80.0-100.0) mmHg ABG HCO3 37.3 H 37.9 H (22.0-26.0) mEq/l ABG O2 Saturation 91.9 L (95.0-100.0) % ABG O2 Content 15.7 L (16.0-22.0) %vol Oxyhemoglobin (90.0-100.0) % THb Reduced Hemoglobin (0-5.0) %THb Sodium 134 L (137-145) mmol/L Chloride 93 L (98-107) mmol/L Carbon Dioxide 38 H (22-30) mmol/L Anion Gap 3 L (4-12) mmol/L BUN 18 H (7-17) mg/dL Creatinine 0.56 L (0.7-1.0) mg/dL Calcium 8.1 L (8.4-10.2) mg/dL AST (14-36) U/L ALT (6-35) U/L NT-Pro-B Natriuret Pep (19.9-100) pg/mL Urine Glucose (UA) (Negative) mg/dL H & H 12/15/24 12/16/24 Range/Units 12:09 04:12 Hgb 13.4 11.4 L (12.0-15.0) g/dL Hct 44.8 38.4 (37.0-47.0) % Coagulation 03/31/25 Range/Units 12:09 INR 1.0 All other labs normal. <MATTHEW Yousif - Last Filed: 12/16/24 09:02> Fracture/Casting/Strapping Pre Procedure Consent was obtained, Procedures/risks were explained, Questions were answered, Correct patient identified and Correct side and site confirmed <MATTHEW Yousif - Last Filed: 12/16/24 09:02> Consent was obtained and Correct patient identified <Vladislav Jean MD - Last Filed: 12/16/24 12:40> Episode of Care New episode (Left Wrist ) <MATTHEW Yousif - Last Filed: 12/16/24 09:02> Fracture Care Radius/ulna/carpal Radius, Ulna, Carpal: CLOSED TX RADIAL & ULNAR FX W/O MANIPULATION (Nondisplaced radial styloid fracture, nondisplaced ulnar styloid fracture ) <MATTHEW Yousif - Last Filed: 12/16/24 09:02> Radius/ulna/carpal Radius, Ulna, Carpal: CLOSED TX DISTAL RADIAL FX W/O MANIPULATION (Nondisplaced radial styloid fracture, nondisplaced ulnar styloid fracture ) <Vladislav Jean MD - Last Filed: 12/16/24 12:40> Application Exam of Affected Area: Color: Abnormal (unable to fully assess due to splint in place ), Temp: Normal, Pulse: Normal, Blanching: Normal, Capillary Refill: Normal and Sensory Exam: Normal <MATTHEW Yousif - Last Filed: 12/16/24 09:02> Swelling: Yes and Tenderness: Yes <MATTHEW Yousif - Last Filed: 12/16/24 09:02> Skin: Apperance: Intact <MATTHEW Yousif - Last Filed: 12/16/24 09:02> Patient Tolerated Procedure Well: Yes <MATTHEW Yousif - Last Filed: 12/16/24 09:02> Post Procedure Patient tolerated the procedure well?: Tolerated procedure well <MATTHEW Yousif - Last Filed: 12/16/24 09:02>
[2024-12-16] MEDS: LIDOCAINE 5% PATCH 1 PATCH TRANSDERM (09:14)
[2024-12-16] MEDS: SACUBITRIL/VALSARTAN 24-26 MG TABLET 1 TAB PO ×2 (09:15→20:21)
[2024-12-16] MEDS: CEFEPIME 2 GM/NS 50 ML 2 GM/50 ML BAG IVPB ×2 (09:15→20:52)
[2024-12-16] MEDS: FUROSEMIDE INJ 40 MG/4 ML VIAL IV PUSH (09:15)
[2024-12-16] MEDS: SERTRALINE HCL 50 MG TABLET PO (09:16)
[2024-12-16] MEDS: GABAPENTIN 300 MG CAPSULE PO ×2 (09:16→16:10)
[2024-12-16] MEDS: FLECAINIDE ACETATE 100 MG TABLET PO ×2 (09:16→20:20)
[2024-12-16] MEDS: EMPAGLIFLOZIN 10 MG TABLET PO (09:16)
[2024-12-16] MEDS: MAGNESIUM OXIDE 200 MG TABLET PO (09:16)
[2024-12-16] MEDS: ENOXAPARIN 40 MG/0.4 ML SYRINGE SUB-Q (09:16)
[2024-12-16] MEDS: CHOLECALCIFEROL 1,000 UNITS TABLET 1000 UNITS PO (09:16)
[2024-12-16] MEDS: MULTIVITAMINS THERAPEUTIC TAB (*BKC) 1 TABLET PO (09:16)
[2024-12-16] MEDS: UMECLIDINIUM/VILANTEROL 62.5-25 MCG ELLIPTA 1 PUFF INHALATION (09:20)
--- NOTE | 2024-12-16 15:34 | P.PNIM_ITS ---
Progress Note: A&P Assessment and Plan (1) Acute on chronic respiratory failure with hypoxia and hypercapnia: Code(s): J96.21 - Acute and chronic respiratory failure with hypoxia; J96.22 - Acute and chronic respiratory failure with hypercapnia Status: Acute Assessment and Plan: Patient with acute on chronic respiratory failure. [place] related to underlying acute on chronic s/d CHF exacerbation with PNA and possibly interstitial lung disease/COPD. Consider HCAP given her recent hospitalization. Patient also with bronchiectasis and MAC history; she has been unable to tolerate vest therapy well at home. Also consider related to hypopnea related to over medication from narcotics - was getting fentanyl patch for her chronic pain. Weaned off Bipap and now on 6L. ABG 7.37/66.5/66 on 30% bipap. Fluid status much better with lasix. Fever curve better Continue nebulizer treatments. Continue schedule vest therapy as tolerated. Continue BiPAP at night and with naps; okay to use as needed during the day if feeling SOB. Abx started with Rocephin and azithromycin but changed to cefepime and vancomycin. Continue azithromycin for atypical coverage. MRSA negative. COVID, RSV and influenza PCR negative. PCT 0.3. BCx NGTD. Urine Legionella and pneumococcal antigen pending. Continue abx. Okay to stop Vanco. Good UOP. Will hold lasix given the contraction alkalosis. (2) Sepsis: Qualifiers: Acute respiratory failure type: with hypercapnia Sepsis acute organ dysfunction status: with acute organ dysfunction Sepsis type: sepsis due to unspecified organism Severe sepsis acute organ dysfunction type: acute respiratory failure Severe sepsis shock status: without septic shock Qualified Code(s): A41.9 - Sepsis, unspecified organism; R65.20 - Severe sepsis without septic shock; J96.02 - Acute respiratory failure with hypercapnia Code(s): A41.9 - Sepsis, unspecified organism Status: Acute Assessment and Plan: As above. Related to PNA (3) CHF (congestive heart failure): Qualifiers: Heart failure chronicity: acute on chronic Heart failure type: combined systolic and diastolic Qualified Code(s): I50.43 - Acute on chronic combined systolic (congestive) and diastolic (congestive) heart failure Code(s): I50.9 - Heart failure, unspecified Status: Acute Assessment and Plan: As above. Echo in 08/29/24 showing normal LV size, mild LV systolic dysfunction, EF 40-45% Repeat limited echo to assess EF. Lasix prn (4) Pneumonia: Qualifiers: Laterality: bilateral Lung location: unspecified part of lung Pneumonia type: due to unspecified organism Qualified Code(s): J18.9 - Pneumonia, unspecified organism Code(s): J18.9 - Pneumonia, unspecified organism Status: Acute Assessment and Plan: As above. (5) Invasive ductal carcinoma of left breast: Code(s): C50.912 - Malignant neoplasm of unspecified site of left female breast Status: Acute Assessment and Plan: Patietn with known breast CA. Recent PET scan 12/10/24 showing increased uptake in the lymph nodes at the left axilla extending to lateral left breast consistent with local metastatic disease, increased uptake with subtle lytic lesions in the left 5th rib and right scapula. Mild diffuse uptake associated with T6 and T7 compression fractures and fractures of the immediately adjacent posterior right 6th and 8th rib. Cannot exclude pathological fractures. Supportive care. Pain control (6) Cancer, metastatic to bone: Code(s): C79.51 - Secondary malignant neoplasm of bone Status: Acute Assessment and Plan: As above (7) Left radial head fracture: Qualifiers: Encounter type: initial encounter Fracture alignment: nondisplaced Fracture type: closed Qualified Code(s): S52.125A - Nondisplaced fracture of head of left radius, initial encounter for closed fracture Code(s): S52.122A - Displaced fracture of head of left radius, initial encounter for closed fracture Status: Deleted Assessment and Plan: Patient's left radial and ulnar fractures likely related to her fall that occurred before her last hospitalization. Her wrist is currently splinted. Orthopedic surgery has been consulted. Will elevate extremity to help reduce edema. New splint to be placed. Apprecaite ortho input. Continue supportive care. (8) Left ulnar fracture: Qualifiers: Encounter type: initial encounter Fracture alignment: nondisplaced Fracture type: closed Ulna location: styloid process Qualified Code(s): S52.615A - Nondisplaced fracture of left ulna styloid process, initial encounter for closed fracture Code(s): S52.202A - Unspecified fracture of shaft of left ulna, initial encounter for closed fracture Status: Acute Assessment and Plan: As above Plan DVT prophyalxis - Lovenox Code status - DNR Subjective Date/time seen: 12/16/24 15:34 Interval history: 84yo female with combined systolic and diastolic CHF, COPD with chronic hypoxic hypercapnic respiratory failure on home O2 of 2 L, chronic MAC, and 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 SOB better today. has a nonproductive cough. Hx of pseudomonas infection. No CP but has pleuritic left posterior shoulder pain. Weaned to 6L. The facial edema is better. Exam Narrative: Tm 101.1 98.7 94/40 73 20 96% HFNC Gen - NARD Chest - inspiratory rhonchi in the mid and lower lung johnson. CV - RRR S1/S2; Tele showing sinus with PVCs Abd - soft, NT/ND, +BS Ext - trace zbigniew-ankle edema. Neuro - alert and appropriate Psych - pleasant and cooperative Skin - warm and dry Objective Data Vital Signs Vital Signs: Vital Signs - 24 hr 12/15/24 16:01 12/15/24 17:30 12/15/24 18:00 Temperature 101.1 F H Pulse Rate 76 90 Respiratory Rate 21 H 28 H Blood Pressure 120/54 L Pulse Oximetry 94 95 Oxygen Delivery BiPAP Oxygen Flow Rate Fraction of Inspired Oxygen 12/15/24 20:00 12/15/24 20:00 12/15/24 20:00 Temperature 98.8 F Pulse Rate 77 79 Respiratory Rate 21 H Blood Pressure 123/50 L Pulse Oximetry 93 95 Oxygen Delivery High Flow Nasal Cannula Oxygen Flow Rate 6 Fraction of Inspired Oxygen 12/15/24 21:43 12/15/24 21:45 12/15/24 22:00 Temperature Pulse Rate 78 72 Respiratory Rate 25 H Blood Pressure Pulse Oximetry 96 95 Oxygen Delivery Nasal Cannula BiPAP Oxygen Flow Rate 6 Fraction of Inspired Oxygen 12/15/24 23:19 12/16/24 00:00 12/16/24 00:00 Temperature 98.7 F Pulse Rate 72 76 69 Respiratory Rate 19 20 Blood Pressure 123/47 L Pulse Oximetry 98 100 Oxygen Delivery BiPAP Oxygen Flow Rate Fraction of Inspired Oxygen 30 12/16/24 02:00 12/16/24 02:52 12/16/24 02:59 Temperature Pulse Rate 74 78 78 Respiratory Rate 21 H 21 H Blood Pressure Pulse Oximetry 95 Oxygen Delivery BiPAP Oxygen Flow Rate Fraction of Inspired Oxygen 12/16/24 03:42 12/16/24 04:00 12/16/24 04:00 Temperature 97.8 F Pulse Rate 70 65 76 Respiratory Rate 18 20 Blood Pressure 123/49 L Pulse Oximetry 94 93 Oxygen Delivery BiPAP Oxygen Flow Rate Fraction of Inspired Oxygen 30 12/16/24 05:06 12/16/24 06:00 12/16/24 07:46 Temperature 98.3 F Pulse Rate 72 71 67 Respiratory Rate 21 H 27 H Blood Pressure 133/53 L Pulse Oximetry 93 97 Oxygen Delivery BiPAP Oxygen Flow Rate Fraction of Inspired Oxygen 12/16/24 08:00 12/16/24 08:00 12/16/24 09:06 Temperature Pulse Rate 80 77 81 Respiratory Rate 20 20 Blood Pressure Pulse Oximetry 95 95 Oxygen Delivery High Flow Nasal Cannula High Flow Nasal Cannula Oxygen Flow Rate 6 6 Fraction of Inspired Oxygen 30 12/16/24 09:06 12/16/24 09:16 12/16/24 09:19 Temperature Pulse Rate 81 79 80 Respiratory Rate 20 20 Blood Pressure Pulse Oximetry Oxygen Delivery Oxygen Flow Rate Fraction of Inspired Oxygen 12/16/24 10:00 12/16/24 11:48 12/16/24 12:00 Temperature 98.7 F Pulse Rate 76 79 79 Respiratory Rate 20 20 Blood Pressure 94/40 L Pulse Oximetry 96 96 Oxygen Delivery High Flow Nasal Cannula Oxygen Flow Rate 6 Fraction of Inspired Oxygen 30 12/16/24 12:00 12/16/24 14:00 Temperature Pulse Rate 80 73 Respiratory Rate Blood Pressure Pulse Oximetry Oxygen Delivery Oxygen Flow Rate Fraction of Inspired Oxygen Intake/Output Intake/Output: Intake & Output 12/13/24 12/14/24 12/15/24 12/16/24 23:59 23:59 23:59 23:59 Intake Total 690 620 Output Total 1650 325 Balance -960 295 Meds/Results Medications: Active Medications Generic Name Dose Route Start Last Admin Trade Name Freq PRN Reason Stop Dose Admin Acetaminophen 650 mg 12/15/24 15:19 Acetaminophen 325 Mg Tablet PO Q4H PRN Mild Pain (1-3) or Fever Hydrocodone Bitart/Acetaminophen 1 tab 12/15/24 22:01 Hydrocodone/Acetaminophen (*Crx) 5-325 Mg Tablet PO Q6H PRN Pain Rated 7-10 Albuterol/Ipratropium 3 ml 12/16/24 02:00 12/16/24 09:06 Ipratropium 0.5 Mg/Albuterol Sulfate 2.5 Mg Ampul.Neb 3 Ml INHALATION 3 ml Q6HRT ANA Administration Alprazolam 0.25 mg 12/15/24 22:01 12/15/24 22:22 Alprazolam (*Crx) 0.25 Mg Tablet PO 0.25 mg TID PRN Administration anxiety Diclofenac Sodium 50 mg 12/15/24 23:14 Diclofenac Sod 25 Mg Tablet.Ec PO Q12H PRN pain 4-6 Empagliflozin 10 mg 12/16/24 09:00 12/16/24 09:16 Empagliflozin 10 Mg Tablet PO 10 mg DAILY ANA Administration Enoxaparin Sodium 40 mg 12/16/24 09:00 12/16/24 09:16 Enoxaparin 40 Mg/0.4 Ml Syringe SUB-Q 40 mg DAILY ANA Administration Famotidine 40 mg 12/15/24 22:05 12/15/24 22:22 Famotidine 20 Mg Tablet PO 40 mg QHS ANA Administration Fentanyl 25 mcg 12/18/24 09:00 Fentanyl (*Crx) 25 Mcg Patch TRANSDERM Q72HR ANA Flecainide Acetate 100 mg 12/16/24 09:00 12/16/24 09:16 Flecainide Acetate 100 Mg Tablet PO 100 mg Q12HR ANA Administration Furosemide 40 mg 12/16/24 09:00 12/16/24 09:15 Furosemide Inj 40 Mg/4 Ml Vial IV PUSH 40 mg DAILY ANA Administration Gabapentin 300 mg 12/16/24 09:00 12/16/24 09:16 Gabapentin 300 Mg Capsule PO 300 mg BID ANA Administration Azithromycin 500 mg in 250 mls @ 250 mls/hr 12/16/24 20:00 Zithromax IVPB Q24H ANA Cefepime HCl 2 gm in 50 mls @ 100 mls/hr 12/15/24 21:00 12/16/24 09:15 Maxipime 2 Gm/Ns 50 Ml IVPB 100 mls/hr Q12HR ANA Administration Lidocaine 1 patch 12/16/24 09:00 12/16/24 09:14 Lidocaine 5% Patch TRANSDERM 1 patch DAILY ANA Administration Magnesium Oxide 200 mg 12/16/24 09:00 12/16/24 09:16 Magnesium Oxide 200 Mg Tablet PO 200 mg DAILY ANA Administration Metoprolol Succinate 25 mg 12/16/24 21:00 Metoprolol Succinate Ext Rel 25 Mg Tabcr PO QHS ANA Mirtazapine 7.5 mg 12/15/24 22:05 12/15/24 22:22 Mirtazapine 7.5 Mg Tablet PO 7.5 mg QHS ANA Administration Multivitamins Therapeutic 1 tablet 12/16/24 09:00 12/16/24 09:16 Multivitamins Therapeutic Tab (*Bkc) PO 1 tablet DAILY ANA Administration Ondansetron HCl 4 mg 12/15/24 15:19 Ondansetron Inj 4 Mg/2 Ml Vial IV PUSH Q4H PRN Nausea Sacubitril/Valsartan 1 tab 12/16/24 09:00 12/16/24 09:15 Sacubitril/Valsartan 24-26 Mg Tablet PO 1 tab Q12HR ANA Administration Sertraline HCl 50 mg 12/16/24 09:00 12/16/24 09:16 Sertraline Hcl 50 Mg Tablet PO 50 mg DAILY ANA Administration Umeclidinium/Vilanterol 1 puff 12/16/24 08:00 12/16/24 09:20 Umeclidinium/Vilanterol 62.5-25 Mcg Ellipta INHALATION 1 puff DAILYRT ANA Administration Vitamin D 1,000 units 12/16/24 09:00 12/16/24 09:16 Cholecalciferol 1,000 Units Tablet PO 1,000 units DAILY ANA Administration Radiology Results: ITS Impressions Chest X-Ray 12/15/24 12:51 Impression: 1: Diffuse bilateral airspace disease which may represent edema or pneumonia. Wrist X-Ray 12/15/24 12:55 IMPRESSION: 1. Nondisplaced avulsion fractures of the ulnar styloid. 2. Age-indeterminate nondisplaced fracture of radial styloid. 3. Small bone fragment dorsal to the carpus on the lateral view, which may be an avulsion fracture of dorsal pole of triquetrum. 4. Polyarticular osteoarthritis. Head CT 12/15/24 17:34 Impression: No acute intracranial hemorrhage or suspicious mass effect. Labs Labs: Laboratory Results - last 24 hr 12/15/24 12/15/24 12/15/24 13:38 20:48 22:15 WBC RBC Hgb Hct MCV MCH MCHC RDW Plt Count MPV Immature Gran % (Auto) Neut % (Auto) Lymph % (Auto) Z[place]ata % (Auto) Eos % (Auto) Baso % (Auto) Lymph # (Auto) [place] # (Auto) Eos # (Auto) Baso # (Auto) Abs Immat Gran (auto) Absolute Neuts (auto) Absolute Nucleated RBC Nucleated RBC % Puncture Site Right radial ABG pH 7.331 L ABG pCO2 72.3 H* ABG pO2 92.6 ABG PO2/FiO2 Ratio Not Reportable 2.10 ABG HCO3 37.3 H ABG O2 Saturation Not Reportable 96.3 ABG O2 Content Not Reportable 18.2 ABG Base Excess 8.7 A-a Gradient Not Reportable 138.7 Oxyhemoglobin 95.4 Carboxyhemoglobin 1.4 Methemoglobin 0.3 Reduced Hemoglobin 2.9 Total Hemoglobin 13.5 O2 Delivery Device Nasal cannula O2 Liters/Min 6.0 Vent Rate FiO2 44 Expiratory Pressure Inspiratory Pressure Sodium Potassium Chloride Carbon Dioxide Anion Gap BUN Creatinine Estim Creat Clear Calc Estimated GFR Glucose Calcium Procalcitonin Nasal MRSA (PCR) Not detected 12/16/24 12/16/24 04:12 05:04 WBC 10.0 RBC 4.04 L Hgb 11.4 L Hct 38.4 MCV 95.0 MCH 28.2 MCHC 29.7 L RDW 14.1 Plt Count 191 MPV 9.4 Immature Gran % (Auto) 0.6 H Neut % (Auto) 70.9 Lymph % (Auto) 14.8 L Z[place]ata % (Auto) 13.3 H Eos % (Auto) 0.2 Baso % (Auto) 0.2 Lymph # (Auto) 1.47 Zapata # (Auto) 1.3 H Eos # (Auto) 0.0 Baso # (Auto) 0.0 Abs Immat Gran (auto) 0.06 H Absolute Neuts (auto) 7.1 H Absolute Nucleated RBC 0.000 Nucleated RBC % 0.0 Puncture Site Right radial ABG pH 7.374 ABG pCO2 66.5 H* ABG pO2 66.2 L ABG PO2/FiO2 Ratio 2.21 ABG HCO3 37.9 H ABG O2 Saturation 91.9 L ABG O2 Content 15.7 L ABG Base Excess 10.3 A-a Gradient 69.6 Oxyhemoglobin 91.2 Carboxyhemoglobin Methemoglobin Reduced Hemoglobin Total Hemoglobin 12.2 O2 Delivery Device Non-invasive vent O2 Liters/Min Not Reportable Vent Rate 20 FiO2 30 Expiratory Pressure 6 Inspiratory Pressure 12 Sodium 134 L Potassium 3.6 Chloride 93 L Carbon Dioxide 38 H Anion Gap 3 L BUN 18 H Creatinine 0.56 L Estim Creat Clear Calc 55 Estimated GFR > 60 Glucose 110 Calcium 8.1 L Procalcitonin 0.3 Nasal MRSA (PCR)
[2024-12-16] MEDS: ACETAMINOPHEN 325 MG TABLET 650 MG PO (20:19)
[2024-12-16] MEDS: FAMOTIDINE 20 MG TABLET 40 MG PO (20:20)
[2024-12-16] MEDS: METOPROLOL SUCCINATE EXT REL 25 MG TABCR PO (20:20)
[2024-12-16] MEDS: MIRTAZAPINE 7.5 MG TABLET PO (20:20)
[2024-12-16] MEDS: AZITHROMYCIN 500 MG/NS 250 ML 500 MG/250 ML BAG 250 MG IVPB (20:52)
[2024-12-17] VITALS (28 sets, daily range): BP systolic 106–118; BP diastolic 40–65; PULSE 60–92; RESP 18–25; TEMP 36.4–37.2; O2SAT 92–100
--- NOTE | 2024-12-17 | ECHO_ITS ---
Patient Info Name: Nora Tejeda Age: 84 years : 1940 Gender: Female Ht: 64 in Wt: 145 lbs BSA: 1.73 m2 HR: 75 bpm BP: 118 / 40 mmHg Heart Rhythm: Sinus Rhythm, Left Bundle Branch Block Technical Quality: Good Exam Date: 12/17/2024 9:48 AM Exam Location: Echo Lab Patient Status: Inpatient Admit Date: 12/15/2024 Staff Ordering Physician: Bro Sweet MD Melting Operator: Charline Ren RDCS Attending Provider: Perez Gaitan MD Exam Type: CA echo doppler color flow Study Info Indications - CHF Complete two-dimensional, color flow and Doppler transthoracic echocardiogram is performed. Summary 1. Left ventricular chamber dimension is normal. 2. Left ventricular systolic function is normal, estimated at 50-55%. 3. There is mildly increased left ventricular wall thickness. 4. Left ventricular septal wall motion is abnormal with septal motion related to bundle branch block. 5. The left ventricular diastolic function is grade I diastolic dysfunction. 6. Right ventricular systolic function is normal. 7. Left atrial chamber dimension is moderately enlarged. 8. Right atrial chamber dimension is moderately enlarged. 9. There is mild mitral valve regurgitation. 10. There is mild tricuspid valve regurgitation. 11. Estimated pulmonary arterial systolic pressure is 39 mmHg. 12. Normal inferior vena cava with >50% collapse upon inspiration consistent with normal right atrial pressure, 3 mmHg. Left Ventricle Left ventricular chamber dimension is normal. Left ventricular systolic function is normal, estimated at 50-55%. There is mildly increased left ventricular wall thickness. Left ventricular septal wall motion is abnormal with septal motion related to bundle branch block. The left ventricular diastolic function is grade I diastolic dysfunction. Right Ventricle Right ventricular chamber dimension is normal. Right ventricular systolic function is normal. Left Atria Left atrial chamber dimension is moderately enlarged. Right Atria Right atrial chamber dimension is moderately enlarged. Atrial Septum Intact interatrial septum visualized by color flow imaging. Aortic Valve The aortic valve is not well visualized. There is no aortic valve stenosis. There is no aortic valve regurgitation. Pulmonic Valve The pulmonic valve is not well visualized. There is trace pulmonic regurgitation. Mitral Valve The mitral valve has thickened leaflets. There is mild mitral valve regurgitation. Tricuspid Valve There is mild tricuspid valve regurgitation. Estimated pulmonary arterial systolic pressure is 39 mmHg. Pericardium/Pleural There is no pericardial effusion. Inferior Vena Cava Normal inferior vena cava with >50% collapse upon inspiration consistent with normal right atrial pressure, 3 mmHg. Aorta The aortic root size at the sinus of Valsalva is normal. Left Ventricular Outflow Tract Name Value Normal LVOT 2D LVOT Diameter 1.7 cm LVOT Doppler LVOT Peak Gradient 6 mmHg LVOT Mean Gradient 4 mmHg LVOT VTI 27 cm LVOT VTI/AV VTI Ratio 0.7 LVOT Stroke Volume 61 ml LVOT CO 12.9 l/min LVOT CI 7.4 l/min/m2 Pulmonic Valve Name Value Normal PV Doppler PV Peak Gradient 5 mmHg Mitral Valve Name Value Normal MV Doppler MV Decel Emanuel 793 cm/s2 MV PHT 45 ms MV Area (PHT) 4.9 cm2 4.0-5.0 MV Diastolic Function MV E Peak Velocity 123 cm/s MV A Peak Velocity 115 cm/s MV E/A 1.1 MV Decel Time 155 ms MV Annular TDI MV E/e' (Septal) 23.5 <=8.0 MV E/e' (Lateral) 14.6 <=8.0 MV E/e' (Average) 19.1 Tricuspid Valve Name Value Normal TV Regurgitation Doppler TR Peak Velocity 301 cm/s TR Peak Gradient 29 mmHg Estimated PAP/RSVP RA Pressure 3 mmHg <=5 PA Systolic Pressure 39 mmHg <36 RV Systolic Pressure 39 mmHg <36 Aorta Name Value Normal Ascending Aorta Ao Root Diameter (MM) 3.0 cm Ao Root Diam Index (MM) 1.7 cm/m2 Aortic Valve Name Value Normal AV Doppler AV Peak Velocity 177 cm/s AV Peak Gradient 13 mmHg AV Mean Gradient 8 mmHg AV VTI 41 cm AV Area (Cont Eq VTI) 1.5 cm2 >=3.0 AV Area (Cont Eq Ariel) 1.5 cm2 AV Regurgitation 2D LVOT Area 2.3 cm2 Ventricles Name Value Normal LV Dimensions 2D/MM IVS Diastolic Thickness (2D) 0.7 cm 0.6-1.0 LVID Diastole (2D) 4.8 cm 3.8-5.2 LVIW Diastolic Thickness (2D) 0.8 cm 0.6-0.9 LVID Systole (2D) 3.7 cm 2.2-3.5 LVOT Diameter 1.7 cm LV Mass (2D Cubed) 121.48 g 67.00-162.00 LV Mass Index (2D Cubed) 70 g/m2 43-95 Relative Wall Thickness (2D) 0.35 LV Fractional Shortening/Ejection Fraction 2D/MM LV Fractional Shortening (2D) 23 % 27-45 LV EF (2D Teicholz) 45 % 54-74 LV Diastolic Volume (4C MOD) 110 ml LV EF (4C MOD) 54 % LV Diastolic Volume (2C MOD) 76 ml LV EF (2C MOD) 66 % LV Diastolic Volume (BP MOD) 101 ml 46-106 LV Diastolic Volume Index (BP MOD) 58 ml/m2 29-61 LV Systolic Volume (BP MOD) 42 ml 14-42 LV Systolic Volume Index (BP MOD) 24 ml/m2 8-24 LV EF (BP MOD) 59 % 54-74 LV Diastolic Length (4C) 8.3 cm LV Systolic Length (4C) 7.1 cm LV Stroke Volume (4C MOD) 59 ml RV Dimensions 2D/MM RVID Diastole (2D) 4.3 cm 2.5-3.5 Atria Name Value Normal LA Dimensions LA Dimension (MM) 0.0 cm 2.7-3.8 LA Volume (4C A-L) 59 ml LA Volume (BP A-L) 66 ml RA Dimensions RA Area (4C) 21.3 cm2 <=18.0 Report Signatures
[2024-12-17] MEDS: IPRATROPIUM 0.5 MG/ALBUTEROL SULFATE 2.5 MG AMPUL.NEB 3 ML INHALATION ×4 (02:16→19:37)
[2024-12-17 04:50] LABS: Basophils Percent Auto 0.3 % (0.2-1.2); Eosinophils Percent Auto 0.4 % (0-4.4); Hematocrit 40.2 % (37.0-47.0); Hemoglobin 11.9 g/dL (12.0-15.0); Immature Granulocyte Absolute 0.04 K/mm3 (0.00-0.031); Immature Granulocyte Percent A 0.4 % (0-0.5); Mean Corpuscular HGB Conc 29.6 g/dl (32-36); Mean Corpuscular Hemoglobin 28.6 pg (26-34); Mean Corpuscular Volume 96.6 fl (80-100); Mean Platelet Volume 9.8 fl (7.4-10.4); Monocytes Percent Auto 10.3 % (2.6-8.5); Neutrophils Absolute Auto 7.3 K/mm3 (1.3-6.7); Neutrophils Percent Auto 73.6 % (45.5-73.1); Platelet Count Result 174 k/mm3 (150-375); Red Blood Count 4.16 M/mm3 (4.2-5.4); Red Cell Distribution Width 14.5 % (11.5-14.5)
[2024-12-17 05:02] LABS: Alanine Aminotransferase 29 U/L (6-35); Albumin Level 3.4 g/dL (3.5-5.1); Alkaline Phosphatase 79 U/L (38-126); Anion Gap 8 mmol/L (4-12); Aspartate Amino Transferase 22 U/L (14-36); Bilirubin,Total 0.6 mg/dL (0.2-1.3); Blood Urea Nitrogen 25 mg/dL (7-17); Calcium 8.4 mg/dL (8.4-10.2); Carbon Dioxide 34 mmol/L (22-30); Chloride 92 mmol/L (98-107); Estimated CRCL calculation 39 ml/min; Estimated Glomerular Filt Rate > 60; Glucose 124 mg/dL (65-110); Magnesium 2.2 mg/dL (1.6-2.3); Potassium 3.8 mmol/L (3.4-5.0); Sodium 134 mmol/L (137-145)
[2024-12-17] MEDS: GABAPENTIN 300 MG CAPSULE PO ×2 (09:21→17:33)
[2024-12-17] MEDS: MAGNESIUM OXIDE 200 MG TABLET PO (09:21)
[2024-12-17] MEDS: FLECAINIDE ACETATE 100 MG TABLET PO ×2 (09:21→21:22)
[2024-12-17] MEDS: MULTIVITAMINS THERAPEUTIC TAB (*BKC) 1 TABLET PO (09:21)
[2024-12-17] MEDS: SERTRALINE HCL 50 MG TABLET PO (09:21)
[2024-12-17] MEDS: CHOLECALCIFEROL 1,000 UNITS TABLET 1000 UNITS PO (09:21)
[2024-12-17] MEDS: SACUBITRIL/VALSARTAN 24-26 MG TABLET 1 TAB PO ×2 (09:21→21:23)
[2024-12-17] MEDS: ENOXAPARIN 40 MG/0.4 ML SYRINGE SUB-Q (09:21)
[2024-12-17] MEDS: EMPAGLIFLOZIN 10 MG TABLET PO (09:22)
[2024-12-17] MEDS: LIDOCAINE 5% PATCH 1 PATCH TRANSDERM (09:22)
[2024-12-17] MEDS: CEFEPIME 2 GM/NS 50 ML 2 GM/50 ML BAG IVPB ×2 (09:23→21:24)
[2024-12-17] MEDS: UMECLIDINIUM/VILANTEROL 62.5-25 MCG ELLIPTA 1 PUFF INHALATION (10:32)
[2024-12-17] MEDS: fentaNYL (*CRX) 25 MCG PATCH TRANSDERM (10:50)
--- NOTE | 2024-12-17 13:20 | P.PNIM_ITS ---
Progress Note: A&P Assessment and Plan (1) Acute on chronic respiratory failure with hypoxia and hypercapnia: Code(s): J96.21 - Acute and chronic respiratory failure with hypoxia; J96.22 - Acute and chronic respiratory failure with hypercapnia Status: Acute Assessment and Plan: Patient with acute on chronic respiratory failure. multifactorial acute on chronic s/d CHF exacerbation with PNA and possibly interstitial lung disease/COPD. Patient also with bronchiectasis and MAC history; she has been unable to tolerate vest therapy well at home. Also consider related to hypopnea related to over medication from narcotics - was getting fentanyl patch for her chronic pain. Weaned off Bipap and now on 6L. ABG 7.37/66.5/66 on 30% bipap. Fluid status much better with lasix. Continue nebulizer treatments. Continue schedule vest therapy as tolerated. Continue BiPAP at night and with naps; okay to use as needed during the day if feeling SOB. Abx started with Rocephin and azithromycin but changed to cefepime and vancomycin. will DC Vanc. Continue azithromycin for atypical coverage. will consult ID MRSA negative. COVID, RSV and influenza PCR negative. PCT 0.3. BCx NGTD. Urine Legionella and pneumococcal antigen pending. Continue abx. continue LAsix will consult cardiology/pulmonary (2) Sepsis: Qualifiers: Sepsis type: sepsis due to unspecified organism Sepsis acute organ dysfunction status: with acute organ dysfunction Severe sepsis acute organ dy sfunction type: acute respiratory failure Acute respiratory failure type: with hypercapnia Severe sepsis shock status: without septic shock Qualified Code(s): A41.9 - Sepsis, unspecified organism; R65.20 - Severe sepsis without septic shock; J96.02 - Acute respiratory failure with hypercapnia Code(s): A41.9 - Sepsis, unspecified organism Status: Acute Assessment and Plan: As above. Related to PNA (3) CHF (congestive heart failure): Qualifiers: Heart failure chronicity: acute on chronic Heart failure type: combined systolic and diastolic Qualified Code(s): I50.43 - Acute on chronic combined systolic (congestive) and diastolic (congestive) heart failure Code(s): I50.9 - Heart failure, unspecified Status: Acute Assessment and Plan: As above. Echo in 08/29/24 showing normal LV size, mild LV systolic dysfunction, EF 40-45% Repeat limited echo to assess EF. Lasix prn (4) Pneumonia: Qualifiers: Laterality: bilateral Lung location: unspecified part of lung Pneumonia type: due to unspecified organism Qualified Code(s): J18.9 - Pneumonia, unspecified organism Code(s): J18.9 - Pneumonia, unspecified organism Status: Acute Assessment and Plan: As above. (5) Invasive ductal carcinoma of left breast: Code(s): C50.912 - Malignant neoplasm of unspecified site of left female breast Status: Acute Assessment and Plan: Patietn with known breast CA. Recent PET scan 12/10/24 showing increased uptake in the lymph nodes at the left axilla extending to lateral left breast consistent with local metastatic disease, increased uptake with subtle lytic lesions in the left 5th rib and right scapula. Mild diffuse uptake associated with T6 and T7 compression fractures and fractures of the immediately adjacent posterior right 6th and 8th rib. Cannot exclude pathological fractures. Supportive care. Pain control (6) Cancer, metastatic to bone: Code(s): C79.51 - Secondary malignant neoplasm of bone Status: Acute Assessment and Plan: As above (7) Left radial head fracture: Qualifiers: Encounter type: initial encounter Fracture type: closed Fracture alignment: nondisplaced Qualified Code(s): S52.125A - Nondisplaced fracture of head of left radius, initial encounter for closed fracture Code(s): S52.122A - Displaced fracture of head of left radius, initial encounter for closed fracture Status: Deleted Assessment and Plan: Patient's left radial and ulnar fractures likely related to her fall that occurred before her last hospitalization. Her wrist is currently splinted. Orthopedic surgery has been consulted. plan for conservative management Will elevate extremity to help reduce edema. Continue supportive care. (8) Left ulnar fracture: Qualifiers: Encounter type: initial encounter Ulna location: styloid process Fracture type: closed Fracture alignment: nondisplaced Qualified Code(s): S52.615A - Nondisplaced fracture of left ulna styloid process, initial encounter for closed fracture Code(s): S52.202A - Unspecified fracture of shaft of left ulna, initial encounter for closed fracture Status: Acute Assessment and Plan: As above Plan DVT prophyalxis - Lovenox Code status - DNR Subjective Date/time seen: 12/17/24 13:20 Interval history: 84yo female with combined systolic and diastolic CHF, COPD with chronic hypoxic hypercapnic respiratory failure on home O2 of 2 L, chronic MAC, and 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 SOB better today. has a nonproductive cough. Hx of pseudomonas infection. No CP but has pleuritic left posterior shoulder pain. Weaned to 6L. The facial edema is better. 12/17/24 Patient was seen and examined at bedside. She has been better. Breathing improving but still needs 6l. Bilateral edema improving. Continue BIPAP as needed and at night Review of Systems Review of Systems: 12 systems were reviewed with pertinent positives and negatives per HPI. Except as documented in the HPI, all other systems were reviewed and are negative. Exam Narrative: 98.7 94/40 73 20 96% HFNC Gen - NARD Chest - inspiratory rhonchi in the mid and lower lung johnson. CV - RRR S1/S2; Tele showing sinus with PVCs Abd - soft, NT/ND, +BS Ext - trace zbigniew-ankle edema. Neuro - alert and appropriate Psych - pleasant and cooperative Skin - warm and dry Const: Other: Acutely ill-appearing, well-developed well-nourished, elderly, debilitated HENMT: Other: Mucous membranes are tacky, no oral pharyngeal erythema, fair dentition, head is normocephalic atraumatic Eyes: Other: pupils are equal and reactive with evidence of bilateral lens implants Neck: Other: No JVD, no lymphadenopathy Resp: Other: mild tachypnea, coarse crackles throughout Cardio: Other: Regular rate, regular rhythm, 2+ bilateral radial pedal pulses GI: Other: Soft, nontender, nondistended, positive bowel sounds Back/Spine/Pelvis: Other: Thoracic kyphosis Skin: Other: Warm to touch, non jaundice, mild pallor Neuro: Other: Alert oriented x4, speech is clear, no facial asymmetry, no localizing neurologic deficits noted during the course of conversation Extrem: Other: Bilateral upper extremity edema 1 to 2+ left greater than right, left upper extremity has splint in place, trace lower extremity edema bilaterally Psych: Other: Appropriate mood and affect, pleasant and cooperative, judgment and insight intact Objective Data Vital Signs Vital Signs: Vital Signs - 24 hr 12/16/24 14:00 12/16/24 15:58 12/16/24 16:00 Temperature Pulse Rate 73 82 84 Respiratory Rate 20 20 Blood Pressure Pulse Oximetry 96 Oxygen Delivery High Flow Nasal Cannula Oxygen Flow Rate 6 Fraction of Inspired Oxygen 30 12/16/24 16:00 12/16/24 16:00 12/16/24 16:12 Temperature 99.4 F Pulse Rate 93 92 84 Respiratory Rate 22 H 20 Blood Pressure 111/38 L Pulse Oximetry 95 Oxygen Delivery Oxygen Flow Rate Fraction of Inspired Oxygen 12/16/24 18:00 12/16/24 20:00 12/16/24 20:00 Temperature 98.3 F Pulse Rate 85 85 Respiratory Rate 18 Blood Pressure 106/52 L Pulse Oximetry 98 98 Oxygen Delivery High Flow Nasal Cannula Oxygen Flow Rate 6 Fraction of Inspired Oxygen 12/16/24 20:00 12/16/24 20:08 12/16/24 20:08 Temperature Pulse Rate 82 87 Respiratory Rate 16 Blood Pressure Pulse Oximetry 96 Oxygen Delivery High Flow Nasal Cannula Oxygen Flow Rate 6 Fraction of Inspired Oxygen 12/16/24 20:14 12/16/24 20:20 12/16/24 20:20 Temperature Pulse Rate 86 87 87 Respiratory Rate 16 Blood Pressure Pulse Oximetry Oxygen Delivery Oxygen Flow Rate Fraction of Inspired Oxygen 12/16/24 22:00 12/16/24 22:30 12/16/24 23:38 Temperature 97.6 F Pulse Rate 72 70 60 Respiratory Rate 21 H 17 Blood Pressure 93/42 L Pulse Oximetry 97 99 Oxygen Delivery BiPAP Oxygen Flow Rate Fraction of Inspired Oxygen 12/17/24 00:00 12/17/24 00:00 12/17/24 02:00 Temperature Pulse Rate 67 64 Respiratory Rate Blood Pressure Pulse Oximetry 99 Oxygen Delivery BiPAP Oxygen Flow Rate Fraction of Inspired Oxygen 30 12/17/24 02:16 12/17/24 02:16 12/17/24 03:45 Temperature 98.2 F Pulse Rate 68 68 70 Respiratory Rate 22 H 22 H 18 Blood Pressure 118/40 L Pulse Oximetry 97 92 Oxygen Delivery BiPAP Oxygen Flow Rate Fraction of Inspired Oxygen 12/17/24 04:00 12/17/24 04:00 12/17/24 06:00 Temperature Pulse Rate 61 70 Respiratory Rate Blood Pressure Pulse Oximetry 92 Oxygen Delivery BiPAP Oxygen Flow Rate Fraction of Inspired Oxygen 30 12/17/24 07:41 12/17/24 08:00 12/17/24 09:20 Temperature 97.5 F L Pulse Rate 67 63 Respiratory Rate 22 H Blood Pressure 106/65 Pulse Oximetry 99 98 Oxygen Delivery High Flow Nasal Cannula Oxygen Flow Rate 5 Fraction of Inspired Oxygen 12/17/24 09:21 12/17/24 10:00 12/17/24 10:33 Temperature Pulse Rate 87 Respiratory Rate Blood Pressure Pulse Oximetry 98 95 Oxygen Delivery High Flow Nasal Cannula High Flow Nasal Cannula Oxygen Flow Rate 4 5 Fraction of Inspired Oxygen 12/17/24 10:33 12/17/24 10:47 12/17/24 11:42 Temperature 98.2 F Pulse Rate 75 75 74 Respiratory Rate 20 20 18 Blood Pressure 115/45 L Pulse Oximetry 92 Oxygen Delivery Oxygen Flow Rate Fraction of Inspired Oxygen 12/17/24 12:00 12/17/24 12:46 Temperature Pulse Rate 72 Respiratory Rate Blood Pressure Pulse Oximetry 100 Oxygen Delivery High Flow Nasal Cannula Oxygen Flow Rate 2 Fraction of Inspired Oxygen Intake/Output Intake/Output: Intake & Output 12/14/24 12/15/24 12/16/24 12/17/24 23:59 23:59 23:59 23:59 Intake Total 690 1760 120 Output Total 1650 1475 125 Balance -960 285 -5 Meds/Results Medications: Active Medications Generic Name Dose Route Start Last Admin Trade Name Freq PRN Reason Stop Dose Admin Acetaminophen 650 mg 12/15/24 15:19 12/16/24 20:19 Acetaminophen 325 Mg Tablet PO 650 mg Q4H PRN Administration Mild Pain (1-3) or Fever Hydrocodone Bitart/Acetaminophen 1 tab 12/15/24 22:01 Hydrocodone/Acetaminophen (*Crx) 5-325 Mg Tablet PO Q6H PRN Pain Rated 7-10 Albuterol/Ipratropium 3 ml 12/16/24 02:00 12/17/24 10:31 Ipratropium 0.5 Mg/Albuterol Sulfate 2.5 Mg Ampul.Neb 3 Ml INHALATION 3 ml Q6HRT ANA Administration Alprazolam 0.25 mg 12/15/24 22:01 12/15/24 22:22 Alprazolam (*Crx) 0.25 Mg Tablet PO 0.25 mg TID PRN Administration anxiety Diclofenac Sodium 50 mg 12/15/24 23:14 Diclofenac Sod 25 Mg Tablet.Ec PO Q12H PRN pain 4-6 Empagliflozin 10 mg 12/16/24 09:00 12/17/24 09:22 Empagliflozin 10 Mg Tablet PO 10 mg DAILY ANA Administration Enoxaparin Sodium 40 mg 12/16/24 09:00 12/17/24 09:26 Enoxaparin 40 Mg/0.4 Ml Syringe SUB-Q 40 mg DAILY ANA Administration Famotidine 40 mg 12/15/24 22:05 12/16/24 20:20 Famotidine 20 Mg Tablet PO 40 mg QHS ANA Administration Fentanyl 25 mcg 12/17/24 09:55 12/17/24 10:50 Fentanyl (*Crx) 25 Mcg Patch TRANSDERM 25 mcg Q72HR ANA Administration Flecainide Acetate 100 mg 12/16/24 09:00 12/17/24 09:21 Flecainide Acetate 100 Mg Tablet PO 100 mg Q12HR ANA Administration Furosemide 40 mg 12/16/24 09:00 12/16/24 09:15 Furosemide Inj 40 Mg/4 Ml Vial IV PUSH 40 mg DAILY ANA Administration Gabapentin 300 mg 12/16/24 09:00 12/17/24 09:21 Gabapentin 300 Mg Capsule PO 300 mg BID ANA Administration Azithromycin 500 mg in 250 mls @ 250 mls/hr 12/16/24 20:00 12/16/24 21:52 Zithromax IVPB Infused Q24H ANA Infusion Cefepime HCl 2 gm in 50 mls @ 100 mls/hr 12/15/24 21:00 12/17/24 09:23 Maxipime 2 Gm/Ns 50 Ml IVPB 100 mls/hr Q12HR ANA Administration Lidocaine 1 patch 12/16/24 09:00 12/17/24 09:22 Lidocaine 5% Patch TRANSDERM 1 patch DAILY ANA Administration Magnesium Oxide 200 mg 12/16/24 09:00 12/17/24 09:21 Magnesium Oxide 200 Mg Tablet PO 200 mg DAILY ANA Administration Metoprolol Succinate 25 mg 12/16/24 21:00 12/16/24 20:20 Metoprolol Succinate Ext Rel 25 Mg Tabcr PO 25 mg QHS ANA Administration Mirtazapine 7.5 mg 12/15/24 22:05 12/16/24 20:20 Mirtazapine 7.5 Mg Tablet PO 7.5 mg QHS ANA Administration Multivitamins Therapeutic 1 tablet 12/16/24 09:00 12/17/24 09:21 Multivitamins Therapeutic Tab (*Bkc) PO 1 tablet DAILY ANA Administration Ondansetron HCl 4 mg 12/15/24 15:19 Ondansetron Inj 4 Mg/2 Ml Vial IV PUSH Q4H PRN Nausea Perflutren Lipid Microsphere 0 ml 12/16/24 15:34 Perflutren Lipid Microspheres 1.5 Ml Vial Diluted To 10 Ml Total Volume IV PUSH 12/19/24 15:34 ONCE PRN adequate visualization Protocol Sacubitril/Valsartan 1 tab 12/16/24 09:00 12/17/24 09:21 Sacubitril/Valsartan 24-26 Mg Tablet PO 1 tab Q12HR ANA Administration Sertraline HCl 50 mg 12/16/24 09:00 12/17/24 09:21 Sertraline Hcl 50 Mg Tablet PO 50 mg DAILY ANA Administration Umeclidinium/Vilanterol 1 puff 12/16/24 08:00 12/17/24 10:32 Umeclidinium/Vilanterol 62.5-25 Mcg Ellipta INHALATION 1 puff DAILYRT ANA Administration Vitamin D 1,000 units 12/16/24 09:00 12/17/24 09:21 Cholecalciferol 1,000 Units Tablet PO 1,000 units DAILY ANA Administration Radiology Results: ITS Impressions Wrist X-Ray 12/15/24 12:55 IMPRESSION: 1. Nondisplaced avulsion fractures of the ulnar styloid. 2. Age-indeterminate nondisplaced fracture of radial styloid. 3. Small bone fragment dorsal to the carpus on the lateral view, which may be an avulsion fracture of dorsal pole of triquetrum. 4. Polyarticular osteoarthritis. Head CT 12/15/24 17:34 Impression: No acute intracranial hemorrhage or suspicious mass effect. Chest X-Ray 12/17/24 06:21 Impression: Probable mild bibasilar pulmonary edema and minimal pleural effusions. Underlying COPD pattern. Labs Labs: Laboratory Results - last 24 hr 12/17/24 04:16 WBC 10.0 RBC 4.16 L Hgb 11.9 L Hct 40.2 MCV 96.6 MCH 28.6 MCHC 29.6 L RDW 14.5 Plt Count 174 MPV 9.8 Immature Gran % (Auto) 0.4 Neut % (Auto) 73.6 H Lymph % (Auto) 15.0 L Mclennan % (Auto) 10.3 H Eos % (Auto) 0.4 Baso % (Auto) 0.3 Lymph # (Auto) 1.50 Mclennan # (Auto) 1.0 H Eos # (Auto) 0.0 Baso # (Auto) 0.0 Abs Immat Gran (auto) 0.04 H Absolute Neuts (auto) 7.3 H Absolute Nucleated RBC 0.000 Nucleated RBC % 0.0 Sodium 134 L Potassium 3.8 Chloride 92 L Carbon Dioxide 34 H Anion Gap 8 BUN 25 H Creatinine 0.83 Estim Creat Clear Calc 39 Estimated GFR > 60 Glucose 124 H Calcium 8.4 Magnesium 2.2 Total Bilirubin 0.6 AST 22 ALT 29 Alkaline Phosphatase 79 Total Protein 6.0 L Albumin 3.4 L Quality VTE Prophylaxis VTE prophylaxis: pharmacologic ordered (Lovenox 40 mg subQ daily.)
--- NOTE | 2024-12-17 14:06 | PM.CNPUL ---
Assessment and Plan Assessment and plan (1) Acute on chronic respiratory failure with hypoxia and hypercapnia: Code(s): J96.21 - Acute and chronic respiratory failure with hypoxia; J96.22 - Acute and chronic respiratory failure with hypercapnia Status: Acute Assessment and Plan: Patient has chronic hypoxemic respiratory failure and was discharged in September of 2024 after she had influenza with no oxygen at rest and 2 with activity. More recently she has required 2 L at rest, 2 L with activity and 1 L with sleep. Recently admitted to [facility] on 12/04/2024 through 12/06/2024 for COPD exacerbation and discharged on azithromycin and methylprednisolone. Blood gas on 12/04/2024 of 7.31/59/57 on room air. 7 hours later BiPAP blood gas 7.31/51/139 on BiPAP 12/6 and 45% FiO2. 12/15/2024: Patient presented to the emergency department with shortness of breath and altered mental status Related to fentanyl patch, fluid overload, and possible bronchitis-pneumonia with ABG on BiPAP 12/6 30% was 7.29/78 / less than 27. Etiology of acute on chronic respiratory failure with hypoxia and hypercarbia includes: Fluid overload, COPD, bronchiectasis, narcotic use, and possible respiratory infection. Plan: Currently patient is on 1 L nasal cannula saturations 92-94%. Goal saturation 90-94%. I will check an overnight oximetry tonight on 1 L nasal cannula to assess for nocturnal hypoxemia. Currently the patient is awake and mentating. I will discontinue the BiPAP tonight and place her on 1 L nasal cannula oxygen and check a blood gas at off of BiPAP for 24 hours tomorrow morning. Regarding her bronchiectasis the patient has a compression fracture in her back and up pathologic rib fracture and will discontinue vest therapy at this time. Will continue Cornet flutter valve, nebulized bronchodilators to aid in sputum expectoration. Patient states she is not having trouble expectorating and I will not start guaifenesin. Will follow with you. (2) CHF (congestive heart failure): Qualifiers: Heart failure chronicity: acute on chronic Heart failure type: combined systolic and diastolic Qualified Code(s): I50.43 - Acute on chronic combined systolic (congestive) and diastolic (congestive) heart failure Code(s): I50.9 - Heart failure, unspecified Status: Acute Assessment and Plan: Patient presents with worsening shortness of breath, worsening hypoxia, chest x-ray with congestion, BNP 3230. Patient has been treated with IV Lasix and she is clinically improved and her edema has decreased. Plan: Patient has made a rather quick recovery and I suspect the majority of her problem was related to fluid overload. Agree with diuresis as tolerated by her cardiac and renal systems per Cardiology and the hospitalist team. Currently she is on Lasix 40 IV q.day. her weight today is 65.8 with an admission weight of 65 kg. Of note her discharge weight on 12/10/2024 was 60.5 kg. (3) Chronic obstructive pulmonary disease, unspecified: Code(s): J44.9 - Chronic obstructive pulmonary disease, unspecified Status: Acute Assessment and Plan: Patient has remote tobacco use, carries a diagnosis of COPD by her current compounder and is maintained on Anoro Ellipta at 1 puff q.day and rescue albuterol DuoNebs which she takes 1 time a week. 12/17/2024: Currently the patient has no wheezing, no change in her phlegm volume or production and no cough. I do not think she has a COPD exacerbation. Plan: I will continue DuoNebs q.6 hours at this time. I will discontinue her Anoro Ellipta as she is on maximal beta agonist and muscarinic antagonists with the DuoNebs. I see no need for inhaled steroids or systemic steroids at this time. Goal saturation 90-94%. Wean oxygen accordingly. Patient may have a pneumonia or bronchitis and she has improved and I will contnue cefepime and azithromycin both day 3. History of Present Illness History of Present Illness Consult date: 12/17/24 Chief complaint: HYPERCAPNIC RESPIRATORY FAILURE,CHF,WRIST FRACTURE Narrative: 12/17/2024: This is a new pulmonary consult for acute on chronic hypoxemic and hypercarbic respiratory failure. 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 metastatic breast cancer with chronic pain, and HTN. Patient follows with compounder Dr. Flynn, [facility] for the last 6 years. Patient has a follow-up appointment on 12/24/2024 with him. regarding her COPD she is maintained on Anoro Ellipta and rescue DuoNebs which she uses approximately 1 time a week. The patient was admitted to [facility] in September of 2024 with influenza. She was admitted for 5 days and on discharge she was told she needed no oxygen at rest and 2 L with activity. 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 She had a left-sided lumpectomy 01/30/2024 patient refused radiation therapy and endocrine therapy. Patient refused radiation therapy and refused endocrine therapy. PET scan 12/10/2024 showed avid lymph nodes left axilla, avid lesion left 5th rib, right scapula and the patient was to start Ibrance and anastrozole to start monthly Xgeva. If pain does not get any better then we will consider radiation oncology consultation or even kyphoplasty. 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 01/13/2022 sputum with Pseudomonas aeruginosa and fluorescens. 03/02/2021 sputum with GLORIA. 02/24/2021 sputum with GLORIA. patient was referred to [facility] and followed with them and perform serial sputums and the patient and family were told she did not have active infection and needed no treatment. She was last seen by them and 2021. After she was discharged in September of 2024 from influenza a she has never fully recovered back to her PD pre influenza state. She has required more oxygen and typically has been using 1 L during the day. Recently admitted to [facility] on 12/04/2024 through 12/06/2024 for COPD exacerbation and discharged on azithromycin and methylprednisolone. Blood gas on 12/04/2024 of 7.31/59/57 on room air. 7 hours later BiPAP blood gas 7.31/51/139 on BiPAP 12/6 and 45% FiO2. Patient completed her medications and was feeling better. She continued to have back pain and Fentanyl patch was started by PCP. On 12/08/2024 the patient developed worsening shortness of breath, leg swelling, increased oxygen requirements of 2 L at rest, 2 L with activity and 1 L at night. She denied any change in her cough or change in her chronic phlegm production. The PET no patch helped her pain go from a 8/10 to a 5 to 6/10. A on 12/11/2024 her fentanyl patch was increased to 37.5 and on 12/13 the patient had altered mental status with falling asleep and hallucinations. On 12/14/2024 the patient was weak, had shortness of breath and required 3 L oxygen but had no change in her cough or phlegm volume or change in color of her phlegm. On 12/15 in the morning the patient was lethargic and brought to the emergency department. 12/15/2024: Patient presented to the emergency department with shortness of breath and altered mental status. She finished her azithromycin on 11/13/2024 and her DuoNebs were also discontinued at that time. She is on narcotics for pain Patient was hypoxic at her facility and sent to the emergency department. She was A&O x2, chronically ill-appearing. Clear to auscultation. Afebrile. Blood pressure 161/84, heart rate 77, respirations 14. Patient was placed on BiPAP. White blood cell count 13.8, creatinine 0.62, eosinophils 0.3%. BNP 3230. ABG on BiPAP 12/6 30% was 7.29/78 / less than 27. chest x-ray with bibasilar interstitial infiltrates right lower lobe greater than left, pulmonary vascular redistribution, infiltrates and tenting of the right pleural space is new since 12/03/2024. Patient had radial and ulnar styloid fractures. her BiPAP rate was increased to 20, she was given IV Lasix, she was started on cefepime and vancomycin for possible healthcare associated pneumonia. Fentanyl was decreased. patient with a temperature of 38.4? at 4:00 p.m.. On 12/17/2023 shortness of breath is better today. She had nonproductive cough. No chest pain but pleuritic left posterior shoulder pain. weaned off BiPAP and now on 6 L. fluid status better with Lasix. Fever curve better. white blood cell count 10.0. ABG at 5 in the morning on BiPAP 12/6 and 30% with pH 7.37/67/66 12/18/2023: Vancomycin discontinued. Continue azithromycin for atypical coverage. Patient is afebrile since 12/15/2024. Procalcitonin 0.3, blood cultures negative. Chest x-ray with improved bibasilar interstitial alveolar infiltrates compared to 12/15/2024. Currently the patient Tells me that her breathing, cough, phlegm volume and phlegm color are much improved and a are the same as her baseline after influenza a infection. she was on room air during the day earlier but when she ambulated she had desaturations into the 70s and was placed on 3 L. When I enter the room she was on 3 L nasal cannula with saturations 95%. I decreased her to room air and after 7 minutes her saturations were 88% and I placed her back on 1 L and her saturations remain 92-94%. white blood cell count10.0, Cr 0.83, Weight is 65.8 with an admission weight of 65.0. Of note, weight was 60 point 5 kg on discharge on 12/10/2024. since admission she is -440 mL. DATA: 12/17/24: Summary 1. Left ventricular chamber dimension is normal. 2. Left ventricular systolic function is normal, estimated at 50-55%. 3. There is mildly increased left ventricular wall thickness. 4. Left ventricular septal wall motion is abnormal with septal motion related to bundle branch block. 5. The left ventricular diastolic function is grade I diastolic dysfunction. 6. Right ventricular systolic function is normal. 7. Left atrial chamber dimension is moderately enlarged. 8. Right atrial chamber dimension is moderately enlarged. 9. There is mild mitral valve regurgitation. 10. There is mild tricuspid valve regurgitation. 11. Estimated pulmonary arterial systolic pressure is 39 mmHg. 12. Normal inferior vena cava with >50% collapse upon inspiration consistent with normal right atrial pressure, 3 mmHg. Right Ventricle Right ventricular chamber dimension is normal. Right ventricular systolic function is normal. Right Atria Right atrial chamber dimension is moderately enlarged. Atrial Septum Intact interatrial septum visualized by color flow imaging. 12/03/2024: CLINICAL INDICATION: Shortness of breath and hypoxia. Personal history of breast cancer COMPARISON: None. Reference is made to a plain film evaluation of the thoracic spine dated 11/04/2024 and a PA and lateral radiograph of the chest dated 08/24/2024. FINDINGS/OBSERVATIONS: LUNG:Cylindrical and varicose bronchiectasis is identified within the bilateral lung johnson. No discrete consolidation, noncalcified pulmonary nodules or discrete lung mass is identified. Interstitial thickening is noted with a calcified nodule in the right axilla lower lobe suggesting prior granulomatous disease. HEART: The heart is of normal size, without pericardial effusion. MEDIASTINUM: Interval development of multiple lymph nodes within the mediastinum. Calcified lymph nodes within the right hilum, likely corresponding to the appearance on plain film evaluation. No pathologically enlarged or morphologically suspicious lymph nodes are identified within the right axilla, or within the soft tissues of the anterior chest wall. Redemonstration of the pathologically enlarged lymph node within the left axilla, consistent with patient's history.. SOFT TISSUES OF THE CHEST: Unremarkable. BONES OF THE CHEST: No acute fracture. No lytic or blastic lesions are identified. Anterior wedge compression of the the T6 vertebral body is redemonstrated, unchanged from 11/04/2024 plain film evaluation, but an interval change from plain film evaluation dated 08/24/2024. Given the increased attenuation within the T6 vertebral body, a pathologic fracture cannot be excluded. UPPER ABDOMEN: Limited evaluation without intravenous contrast. IMPRESSION: Redemonstration of the T6 vertebral body fracture which also demonstrates increased attenuation for which a pathologic fracture cannot be excluded. Interval development of the mediastinal lymphadenopathy, corresponding to the abnormality seen on plain film radiograph. Cylindrical and varicose bronchiectasis is also noted. 11/20/24: A. Left axillary lymph node, needle biopsy: - Metastatic adenocarcinoma consistent with history of breast primary B. Left axillary scar lesion, needle biopsy: - Metastatic adenocarcinoma consistent with history of breast primary 12/24/2020: CT scan report from [facility]. Clinical history: GLORIA complex. Comparison 02/25/2018. Fibro atelectasis in the right middle lobe and lingula unchanged. Bilateral bronchiectasis, most notable in the anterior lung zones unchanged. Cystic bronchiectasis in the superior segment of the right lower lobe again identified. Associated mucus plugging and bronchial wall thickening again identified. Bilateral scattered tree-in-bud opacifications are grossly unchanged. Calcified granuloma. No suspicious lung mass or consolidation. Biapical pleural parenchymal scarring. 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 Associated pleural thickening versus atelectasis. Small pulmonary on pulmonary nodules in these areas are not excluded Bronchiectasis, emphysematous change, and likely mucous plugging and multiple bronchi is noted. Subtle pulmonary nodules or endobronchial lesions are not excluded. Continued follow-up is recommended for surveillance. Follow-up in 3 months is recommended. Mild pleural thickening and/or consolidation in the right middle lobe and lingula. Review of Systems Constitutional: Constitutional: Reports no additional constitutional complaints Eyes: Eyes: Reports no additional eye complaints ENT: Reports system reviewed and no additional complaints, except as documented Cardiovascular: Cardiovascular: Reports no additional cardiovascular complaints Respiratory: Respiratory: Reports no additional respiratory complaints Gastrointestinal: Gastrointestinal: Reports no additional gastrointestinal complaints Musculoskeletal: Musculoskeletal: Reports no additional musculoskeletal complaints Neurologic: Reports system reviewed and no additional complaints, except as documented Psychiatric: Psychiatric: Reports no additional psychiatric complaints Endocrine: Endocrine: Reports no additional endocrine complaints Hematologic/Lymphatic: Hematologic/Lymphatic: Reports no additional hematologic/lymphatic complaints Allergic/Immunologic: Allergic/Immunologic: Reports no additional allergic/immunologic complaints [facility] Past Medical History Medical History Nondisplaced fracture of left radial styloid process, initial encounter for closed fracture Invasive ductal carcinoma of left breast With recent recurrence with diagnostic confirmation November 20, 2024 Chronic hypoxic respiratory failure, on home oxygen therapy Essential hypertension COPD with emphysema Mitral valve regurgitation [id number] on echocardiogram January 2020 Combined systolic and diastolic cardiac dysfunction Nonischemic cardiomyopathy With echocardiogram 2019 demonstrated EF of 35-40%, grade 1 diastolic dysfunction, global hypokinesis of left ventricle, mild left atrial enlargement, [id number] mitral valve regurgitation, mild tricuspid regurgitation managed by Dr. 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 She recently moved in with 1 of her 2 daughters. She had a brief smoking history when she was young. She rarely drinks alcohol in minimal amounts. She denies history of illicit substance use. Code status: DNR/DNI (per patient request) Surrogate decision maker: Berenice Chang (daughter) Smoking packs per day: 0.5 Smoking cigarettes per day: 10.0 Years smoked: 10 Smoking pack-years: 5.00 Smoking status: Former smoker Tobacco type: cigarettes Second hand tobacco smoke exposure: Yes Alcohol intake: never Drinks per week: 0 Substance use: never Substance use type: does not use Do You Feel Safe in your Home?: Yes Lack of Transportation: No Lack of Food: Never True Current Housing: I Have Housing Concerned About Future Housing: No Difficulty Paying Gas/Electric Bills: No Difficulty Paying for Meds: No Currently Unemployed: No Education: Associate Degree Difficulty w/ Childcare or Family Care: No Living arrangements: alone Spiritual care concerns: No Meds Home Medications and Allergies Home Medications ?Medication ?Instructions ?Recorded ?Confirmed ?Type umeclidinium 62.5 mcg-vilanterol 1 inh inhalation DAILY 08/24/21 12/15/24 History 25 mcg/actuation powdr for inhalation (Anoro Ellipta) albuterol sulfate 90 mcg/actuation 2 inh inhalation Q4H PRN shortness 03/06/22 12/15/24 Rx aerosol inhaler (Ventolin HFA) of breath or wheezing #6.7 grams metoprolol succinate 25 mg 25 mg PO QHS 09/28/23 12/15/24 History tablet,extended release 24 hr calcium 500 mg 2 tablet PO DAILY 01/21/24 12/15/24 History (carb,gluconate)-magnesium 250 mg (gluc,oxide) tablet (Calcium Magnesium) magnesium 200 mg tablet 200 mg PO DAILY 01/21/24 12/15/24 History multivitamin (Daily Multi-Vitamin 1 tablet PO DAILY 01/21/24 12/15/24 History tablet) sodium chloride 3 % for 25 ml inhalation Q4-6H PRN 03/27/24 12/15/24 History nebulization sob/wheezing albuterol sulfate 2.5 mg/3 mL 2.5 mg continuous nebulization Q6H 07/31/24 12/15/24 History (0.083 %) solution for nebulization PRN sob/wheezing ondansetron HCl 4 mg tablet 4 mg PO Q6H PRN nausea and 08/13/24 12/15/24 Rx vomiting #30 tabs Alkadophilus 2 cap PO DAILY 08/24/24 12/15/24 History cholecalciferol (vitamin D3) 75 1,000 unit PO DAILY 08/24/24 12/15/24 History mcg (3,000 unit) tablet alprazolam 0.25 mg tablet 0.25 mg PO TID PRN anxiety #90 tabs 10/16/24 12/15/24 Rx empagliflozin 10 mg tablet 10 mg PO DAILY 10/16/24 12/15/24 History (Jardiance) famotidine 40 mg tablet 40 mg PO QHS #90 tabs 10/16/24 12/15/24 Rx mirtazapine 7.5 mg tablet 7.5 mg PO QHS #90 tabs 10/16/24 12/15/24 Rx sertraline 25 mg tablet 50 mg PO DAILY 10/16/24 12/15/24 History sacubitril 24 mg-valsartan 26 mg 1 tablet PO Q12H 11/27/24 12/15/24 History tablet (Entresto) gabapentin 300 mg capsule 300 mg PO BID #60 caps 12/02/24 12/15/24 Rx diclofenac potassium 50 mg tablet 50 mg PO Q12H PRN pain 12/04/24 12/15/24 History flecainide 100 mg tablet 100 mg PO Q12H 12/04/24 12/15/24 History hydrocodone 5 mg-acetaminophen 325 1 tablet PO Q6H PRN Pain Rated 4-6 12/06/24 12/15/24 Rx mg tablet #40 tabs lidocaine 5 % topical patch 1 patch transdermal DAILY #15 ea 12/06/24 12/15/24 Rx (Lidoderm) methylprednisolone 4 mg tablets in See Rx Instructions PO .COMPLEX 12/06/24 12/15/24 Rx a dose pack #21 ea fentanyl 37.5 mcg/hour transdermal 1 patch transdermal Q72H #5 ea 12/08/24 12/15/24 Rx patch Allergies Allergy/AdvReac Type Severity Reaction Status Date / Time dog dander Allergy Unknown Asthma Verified 12/15/24 16:25 levofloxacin AdvReac Intermediate Hallucinati Verified 12/15/24 16:25 ng Vital Signs Vital Signs - 24 hr 12/16/24 15:58 12/16/24 16:00 12/16/24 16:00 Temperature Pulse Rate 82 84 93 Respiratory Rate 20 20 Blood Pressure Pulse Oximetry 96 Oxygen Delivery High Flow Nasal Cannula Oxygen Flow Rate 6 Fraction of Inspired Oxygen 30 12/16/24 16:00 12/16/24 16:12 12/16/24 18:00 Temperature 37.4 C Pulse Rate 92 84 85 Respiratory Rate 22 H 20 Blood Pressure 111/38 L Pulse Oximetry 95 Oxygen Delivery Oxygen Flow Rate Fraction of Inspired Oxygen 12/16/24 20:00 12/16/24 20:00 12/16/24 20:00 Temperature 36.8 C Pulse Rate 85 82 Respiratory Rate 18 Blood Pressure 106/52 L Pulse Oximetry 98 98 Oxygen Delivery High Flow Nasal Cannula Oxygen Flow Rate 6 Fraction of Inspired Oxygen 12/16/24 20:08 12/16/24 20:08 12/16/24 20:14 Temperature Pulse Rate 87 86 Respiratory Rate 16 16 Blood Pressure Pulse Oximetry 96 Oxygen Delivery High Flow Nasal Cannula Oxygen Flow Rate 6 Fraction of Inspired Oxygen 12/16/24 20:20 12/16/24 20:20 12/16/24 22:00 Temperature Pulse Rate 87 87 72 Respiratory Rate Blood Pressure Pulse Oximetry Oxygen Delivery Oxygen Flow Rate Fraction of Inspired Oxygen 12/16/24 22:30 12/16/24 23:38 12/17/24 00:00 Temperature 36.4 C Pulse Rate 70 60 Respiratory Rate 21 H 17 Blood Pressure 93/42 L Pulse Oximetry 97 99 99 Oxygen Delivery BiPAP BiPAP Oxygen Flow Rate Fraction of Inspired Oxygen 30 12/17/24 00:00 12/17/24 02:00 12/17/24 02:16 Temperature Pulse Rate 67 64 68 Respiratory Rate 22 H Blood Pressure Pulse Oximetry 97 Oxygen Delivery BiPAP Oxygen Flow Rate Fraction of Inspired Oxygen 12/17/24 02:16 12/17/24 03:45 12/17/24 04:00 Temperature 36.8 C Pulse Rate 68 70 Respiratory Rate 22 H 18 Blood Pressure 118/40 L Pulse Oximetry 92 92 Oxygen Delivery BiPAP Oxygen Flow Rate Fraction of Inspired Oxygen 30 12/17/24 04:00 12/17/24 06:00 12/17/24 07:41 Temperature 36.4 C L Pulse Rate 61 70 67 Respiratory Rate 22 H Blood Pressure 106/65 Pulse Oximetry 99 Oxygen Delivery Oxygen Flow Rate Fraction of Inspired Oxygen 12/17/24 08:00 12/17/24 09:20 12/17/24 09:21 Temperature Pulse Rate 63 87 Respiratory Rate Blood Pressure Pulse Oximetry 98 Oxygen Delivery High Flow Nasal Cannula Oxygen Flow Rate 5 Fraction of Inspired Oxygen 12/17/24 10:00 12/17/24 10:33 12/17/24 10:33 Temperature Pulse Rate 75 Respiratory Rate 20 Blood Pressure Pulse Oximetry 98 95 Oxygen Delivery High Flow Nasal Cannula High Flow Nasal Cannula Oxygen Flow Rate 4 5 Fraction of Inspired Oxygen 12/17/24 10:47 12/17/24 11:42 12/17/24 12:00 Temperature 36.8 C Pulse Rate 75 74 72 Respiratory Rate 20 18 Blood Pressure 115/45 L Pulse Oximetry 92 Oxygen Delivery Oxygen Flow Rate Fraction of Inspired Oxygen 12/17/24 12:46 Temperature Pulse Rate Respiratory Rate Blood Pressure Pulse Oximetry 100 Oxygen Delivery High Flow Nasal Cannula Oxygen Flow Rate 2 Fraction of Inspired Oxygen Exam Const: General: cooperative, healthy appearing and comfortable Orientation/consciousness: oriented to person, oriented to place and oriented to time HENMT: Head: normal to inspection Ears: hearing grossly normal bilaterally Eyes: General: appearance normal, both eyes and all related structures Neck: Neck: normal visual inspection Chest: Chest palpation & inspection: normal inspection of the chest Resp: Effort & Inspection: normal respiratory effort and able to speak in complete sentences Auscultation: crackles, no rales, no rhonchi, no wheezes and lung sounds not diminished Other: bases Cardio: Jugular venous distension: no JVD GI: Inspection: normal to inspection GI Palp: No abdominal tenderness Skin: General skin exam: normal color Neuro: General: oriented to person, oriented to place and oriented to time Extrem: General: normal to inspection and edema Other: Trace edema and improved per the patient. Psych: Appearance: grossly normal Results Laboratory Findings 12/17/24 04:16 12/17/24 04:16 ABG, PT/INR, D-dimer: ABG ABG pH 7.374 (7.350-7.450) 12/16/24 05:04 ABG pCO2 66.5 mmHg (35.0-45.0) H* 12/16/24 05:04 ABG pO2 66.2 mmHg (80.0-100.0) L 12/16/24 05:04 ABG O2 Saturation 91.9 % (95.0-100.0) L 12/16/24 05:04 PT/INR, D-dimer PT 13.3 Seconds (11.1-14.7) 12/15/24 12:09 INR 1.0 12/15/24 12:09 Abnormal lab findings: Abnormal Labs 12/15/24 12/15/24 12/15/24 12:09 12:29 13:38 WBC 13.8 H RBC Hgb MCHC 29.9 L RDW 14.6 H Immature Gran % (Auto) 1.5 H Neut % (Auto) 79.2 H Lymph % (Auto) 9.3 L [place] % (Auto) 9.3 H [place] # (Auto) 1.3 H Abs Immat Gran (auto) 0.21 H Absolute Neuts (auto) 10.9 H ABG pH 7.286 L* ABG pCO2 77.9 H* ABG pO2 < 27.0 L* ABG HCO3 36.3 H ABG O2 Saturation ABG O2 Content Oxyhemoglobin 24.5 L* Reduced Hemoglobin 73.2 H Sodium 135 L Chloride 95 L Carbon Dioxide 34 H Anion Gap BUN 20 H Creatinine 0.62 L Glucose Calcium AST 42 H ALT 39 H NT-Pro-B Natriuret Pep 3230 H Total Protein Albumin Urine Glucose (UA) 3+ H 12/15/24 12/16/24 12/16/24 20:48 04:12 05:04 WBC RBC 4.04 L Hgb 11.4 L MCHC 29.7 L RDW Immature Gran % (Auto) 0.6 H Neut % (Auto) Lymph % (Auto) 14.8 L [place] % (Auto) 13.3 H [place] # (Auto) 1.3 H Abs Immat Gran (auto) 0.06 H Absolute Neuts (auto) 7.1 H ABG pH 7.331 L ABG pCO2 72.3 H* 66.5 H* ABG pO2 66.2 L ABG HCO3 37.3 H 37.9 H ABG O2 Saturation 91.9 L ABG O2 Content 15.7 L Oxyhemoglobin Reduced Hemoglobin Sodium 134 L Chloride 93 L Carbon Dioxide 38 H Anion Gap 3 L BUN 18 H Creatinine 0.56 L Glucose Calcium 8.1 L AST ALT NT-Pro-B Natriuret Pep Total Protein Albumin Urine Glucose (UA) 12/17/24 04:16 WBC RBC 4.16 L Hgb 11.9 L MCHC 29.6 L RDW Immature Gran % (Auto) Neut % (Auto) 73.6 H Lymph % (Auto) 15.0 L [place] % (Auto) 10.3 H [place] # (Auto) 1.0 H Abs Immat Gran (auto) 0.04 H Absolute Neuts (auto) 7.3 H ABG pH ABG pCO2 ABG pO2 ABG HCO3 ABG O2 Saturation ABG O2 Content Oxyhemoglobin Reduced Hemoglobin Sodium 134 L Chloride 92 L Carbon Dioxide 34 H Anion Gap BUN 25 H Creatinine Glucose 124 H Calcium AST ALT NT-Pro-B Natriuret Pep Total Protein 6.0 L Albumin 3.4 L Urine Glucose (UA) Diagnostic Findings Additional studies: ITS Impressions Chest X-Ray 12/15/24 12:51 Impression: 1: Diffuse bilateral airspace disease which may represent edema or pneumonia. Wrist X-Ray 12/15/24 12:55 IMPRESSION: 1. Nondisplaced avulsion fractures of the ulnar styloid. 2. Age-indeterminate nondisplaced fracture of radial styloid. 3. Small bone fragment dorsal to the carpus on the lateral view, which may be an avulsion fracture of dorsal pole of triquetrum. 4. Polyarticular osteoarthritis. Head CT 12/15/24 17:34 Impression: No acute intracranial hemorrhage or suspicious mass effect. Chest X-Ray 12/17/24 06:21 Impression: Probable mild bibasilar pulmonary edema and minimal pleural effusions. Underlying COPD pattern.
--- NOTE | 2024-12-17 15:48 | P.CONCA_ITS ---
Assessment and Plan Assessment and plan (1) Acute on chronic respiratory failure with hypoxia and hypercapnia: Code(s): J96.21 - Acute and chronic respiratory failure with hypoxia; J96.22 - Acute and chronic respiratory failure with hypercapnia Status: Acute Plan Acute on chronic heart failure with mildly reduced LVEF of 45-50% per TTE 08/29/2024 / nonischemic cardiomyopathy. Echocardiogram this admission with LVEF 50-55%. 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 Please monitor strict I/Os. Not on diuretic therapy at home. Will plan for Lasix 20mg once daily at home after discharge. -As for heart failure GDMT, continue Entresto, Jardiance, Toprol. Can consider addition of Spironolactone if there is blood pressure room. -Continue Flecainide and Toprol for her frequent PVCs -On antibiotics for possible pneumonia. History of Present Illness History of Present Illness Consult date/time: 12/17/24 15:48 Requesting physician: Perez Gaitan MD Consult reason: congestive heart failure Reason For Visit: HYPERCAPNIC RESPIRATORY FAILURE,CHF,WRIST FRACTURE Narrative: Nora is an 84 year old female patient of Dr. Ivy with chronic heart failure with mildly reduced LVEF of 45-50% per TTE 08/29/2024 / nonischemic cardiomyopathy, frequent PVCs on Flecainide, chronic left bundle branch block, metastatic breast cancer, chronic hypoxic respiratory failure, bronchiectasis, pulmonary MAC infection who was admitted on 12/15 for acute on chronic hypoxic and hypercapnic respiratory failure. Additional history obtained from patient's daughters, who are at bedside. They had noticed that she had facial edema, swollen hands as well. Legs were swollen as well. NT pro BNP elevated at 3230. CXR showed diffuse bilateral airspace disease which may represent edema or pneumonia. Also found with a nondisplaced avulsion fracture of the ulnar styloid, age-indeterminate fracture of the radial styloid. CXR today shows probable mild bibasilar pulmonar edema and minimal pleural effusions, underlying COPD. She has been receiving IV Lasix. Reports the swelling in her legs has significantly improved. Review of Systems 2 Review of Systems: All systems reviewed & are unremarkable except as noted in HPI and below (HPI) [facility] Past Medical History Medical History Nondisplaced fracture of left radial styloid process, initial encounter for closed fracture Invasive ductal carcinoma of left breast With recent recurrence with diagnostic confirmation November 20, 2024 Chronic hypoxic respiratory failure, on home oxygen therapy Essential hypertension COPD with emphysema Mitral valve regurgitation [id number] on echocardiogram January 2020 Combined systolic and diastolic cardiac dysfunction Nonischemic cardiomyopathy With echocardiogram 2019 demonstrated EF of 35-40%, grade 1 diastolic dysfunction, global hypokinesis of left ventricle, mild left atrial enlargement, [id number] mitral valve regurgitation, mild tricuspid regurgitation managed by Dr. 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 She recently moved in with 1 of her 2 daughters. She had a brief smoking history when she was young. She rarely drinks alcohol in minimal amounts. She denies history of illicit substance use. Code status: DNR/DNI (per patient request) Surrogate decision maker: Berenice Chang (daughter) Smoking packs per day: 0.5 Smoking cigarettes per day: 10.0 Years smoked: 10 Smoking pack-years: 5.00 Smoking status: Former smoker Tobacco type: cigarettes Second hand tobacco smoke exposure: Yes Alcohol intake: never Drinks per week: 0 Substance use: never Substance use type: does not use Do You Feel Safe in your Home?: Yes Lack of Transportation: No Lack of Food: Never True Current Housing: I Have Housing Concerned About Future Housing: No Difficulty Paying Gas/Electric Bills: No Difficulty Paying for Meds: No Currently Unemployed: No Education: Associate Degree Difficulty w/ Childcare or Family Care: No Living arrangements: alone Spiritual care concerns: No Meds Home Medications and Allergies Home Medications ?Medication ?Instructions ?Recorded ?Confirmed ?Type umeclidinium 62.5 mcg-vilanterol 1 inh inhalation DAILY 08/24/21 12/15/24 History 25 mcg/actuation powdr for inhalation (Anoro Ellipta) albuterol sulfate 90 mcg/actuation 2 inh inhalation Q4H PRN shortness 03/06/22 12/15/24 Rx aerosol inhaler (Ventolin HFA) of breath or wheezing #6.7 grams metoprolol succinate 25 mg 25 mg PO QHS 09/28/23 12/15/24 History tablet,extended release 24 hr calcium 500 mg 2 tablet PO DAILY 01/21/24 12/15/24 History (carb,gluconate)-magnesium 250 mg (gluc,oxide) tablet (Calcium Magnesium) magnesium 200 mg tablet 200 mg PO DAILY 01/21/24 12/15/24 History multivitamin (Daily Multi-Vitamin 1 tablet PO DAILY 01/21/24 12/15/24 History tablet) sodium chloride 3 % for 25 ml inhalation Q4-6H PRN 03/27/24 12/15/24 History nebulization sob/wheezing albuterol sulfate 2.5 mg/3 mL 2.5 mg continuous nebulization Q6H 07/31/24 12/15/24 History (0.083 %) solution for nebulization PRN sob/wheezing ondansetron HCl 4 mg tablet 4 mg PO Q6H PRN nausea and 08/13/24 12/15/24 Rx vomiting #30 tabs Alkadophilus 2 cap PO DAILY 08/24/24 12/15/24 History cholecalciferol (vitamin D3) 75 1,000 unit PO DAILY 08/24/24 12/15/24 History mcg (3,000 unit) tablet alprazolam 0.25 mg tablet 0.25 mg PO TID PRN anxiety #90 tabs 10/16/24 12/15/24 Rx empagliflozin 10 mg tablet 10 mg PO DAILY 10/16/24 12/15/24 History (Jardiance) famotidine 40 mg tablet 40 mg PO QHS #90 tabs 10/16/24 12/15/24 Rx mirtazapine 7.5 mg tablet 7.5 mg PO QHS #90 tabs 10/16/24 12/15/24 Rx sertraline 25 mg tablet 50 mg PO DAILY 10/16/24 12/15/24 History sacubitril 24 mg-valsartan 26 mg 1 tablet PO Q12H 11/27/24 12/15/24 History tablet (Entresto) gabapentin 300 mg capsule 300 mg PO BID #60 caps 12/02/24 12/15/24 Rx diclofenac potassium 50 mg tablet 50 mg PO Q12H PRN pain 12/04/24 12/15/24 History flecainide 100 mg tablet 100 mg PO Q12H 12/04/24 12/15/24 History hydrocodone 5 mg-acetaminophen 325 1 tablet PO Q6H PRN Pain Rated 4-6 12/06/24 12/15/24 Rx mg tablet #40 tabs lidocaine 5 % topical patch 1 patch transdermal DAILY #15 ea 12/06/24 12/15/24 Rx (Lidoderm) methylprednisolone 4 mg tablets in See Rx Instructions PO .COMPLEX 12/06/24 12/15/24 Rx a dose pack #21 ea fentanyl 37.5 mcg/hour transdermal 1 patch transdermal Q72H #5 ea 12/08/24 12/15/24 Rx patch Allergies Allergy/AdvReac Type Severity Reaction Status Date / Time dog dander Allergy Unknown Asthma Verified 12/15/24 16:25 levofloxacin AdvReac Intermediate Hallucinati Verified 12/15/24 16:25 ng Vital Signs Vital Signs - 24 hr 12/16/24 15:58 12/16/24 16:00 12/16/24 16:00 Temperature Pulse Rate 82 84 93 Respiratory Rate 20 20 Blood Pressure Pulse Oximetry 96 Oxygen Delivery High Flow Nasal Cannula Oxygen Flow Rate 6 Fraction of Inspired Oxygen 30 12/16/24 16:00 12/16/24 16:12 12/16/24 18:00 Temperature 37.4 C Pulse Rate 92 84 85 Respiratory Rate 22 H 20 Blood Pressure 111/38 L Pulse Oximetry 95 Oxygen Delivery Oxygen Flow Rate Fraction of Inspired Oxygen 12/16/24 20:00 12/16/24 20:00 12/16/24 20:00 Temperature 36.8 C Pulse Rate 85 82 Respiratory Rate 18 Blood Pressure 106/52 L Pulse Oximetry 98 98 Oxygen Delivery High Flow Nasal Cannula Oxygen Flow Rate 6 Fraction of Inspired Oxygen 12/16/24 20:08 12/16/24 20:08 12/16/24 20:14 Temperature Pulse Rate 87 86 Respiratory Rate 16 16 Blood Pressure Pulse Oximetry 96 Oxygen Delivery High Flow Nasal Cannula Oxygen Flow Rate 6 Fraction of Inspired Oxygen 12/16/24 20:20 12/16/24 20:20 12/16/24 22:00 Temperature Pulse Rate 87 87 72 Respiratory Rate Blood Pressure Pulse Oximetry Oxygen Delivery Oxygen Flow Rate Fraction of Inspired Oxygen 12/16/24 22:30 12/16/24 23:38 12/17/24 00:00 Temperature 36.4 C Pulse Rate 70 60 Respiratory Rate 21 H 17 Blood Pressure 93/42 L Pulse Oximetry 97 99 99 Oxygen Delivery BiPAP BiPAP Oxygen Flow Rate Fraction of Inspired Oxygen 30 12/17/24 00:00 12/17/24 02:00 12/17/24 02:16 Temperature Pulse Rate 67 64 68 Respiratory Rate 22 H Blood Pressure Pulse Oximetry 97 Oxygen Delivery BiPAP Oxygen Flow Rate Fraction of Inspired Oxygen 12/17/24 02:16 12/17/24 03:45 12/17/24 04:00 Temperature 36.8 C Pulse Rate 68 70 Respiratory Rate 22 H 18 Blood Pressure 118/40 L Pulse Oximetry 92 92 Oxygen Delivery BiPAP Oxygen Flow Rate Fraction of Inspired Oxygen 30 12/17/24 04:00 12/17/24 06:00 12/17/24 07:41 Temperature 36.4 C L Pulse Rate 61 70 67 Respiratory Rate 22 H Blood Pressure 106/65 Pulse Oximetry 99 Oxygen Delivery Oxygen Flow Rate Fraction of Inspired Oxygen 12/17/24 08:00 12/17/24 09:20 12/17/24 09:21 Temperature Pulse Rate 63 87 Respiratory Rate Blood Pressure Pulse Oximetry 98 Oxygen Delivery High Flow Nasal Cannula Oxygen Flow Rate 5 Fraction of Inspired Oxygen 12/17/24 10:00 12/17/24 10:33 12/17/24 10:33 Temperature Pulse Rate 75 Respiratory Rate 20 Blood Pressure Pulse Oximetry 98 95 Oxygen Delivery High Flow Nasal Cannula High Flow Nasal Cannula Oxygen Flow Rate 4 5 Fraction of Inspired Oxygen 12/17/24 10:47 12/17/24 11:42 12/17/24 12:00 Temperature 36.8 C Pulse Rate 75 74 72 Respiratory Rate 20 18 Blood Pressure 115/45 L Pulse Oximetry 92 Oxygen Delivery Oxygen Flow Rate Fraction of Inspired Oxygen 12/17/24 12:46 12/17/24 14:00 12/17/24 14:42 Temperature Pulse Rate 79 82 Respiratory Rate 20 Blood Pressure Pulse Oximetry 100 Oxygen Delivery High Flow Nasal Cannula Oxygen Flow Rate 2 Fraction of Inspired Oxygen 12/17/24 14:52 12/17/24 14:59 Temperature Pulse Rate 77 Respiratory Rate 20 Blood Pressure Pulse Oximetry Oxygen Delivery Nasal Cannula Oxygen Flow Rate 3 Fraction of Inspired Oxygen Exam 2 Const: General: no acute distress HENMT: Mouth: Yes moist mucous membranes Eyes: General: appearance normal, both eyes and all related structures S clera: sclerae normal Resp: Effort & Inspection: normal respiratory effort Auscultation: d iminished lung sounds Other: On supplemental oxygen Cardio: Rate: regular rate Rhythm: regular rhythm Heart sounds: no murmurs Other: Mild bilateral lower extremity edema Neuro: Speech: normal speech Psych: Mental Status: mental status grossly normal Affect: normal affect Results Labs and Meds 12/17/24 04:16 12/17/24 04:16 Lab results: Cardiac Enzymes 12/17/24 Range/Units 04:16 AST 22 (14-36) U/L CBC 12/17/24 Range/Units 04:16 WBC 10.0 (4.5-10.0) K/mm3 RBC 4.16 L (4.2-5.4) M/mm3 Hgb 11.9 L (12.0-15.0) g/dL Hct 40.2 (37.0-47.0) % Plt Count 174 (150-375) k/mm3 Lymph # (Auto) 1.50 (0.9-3.2) K/mm3 [place] # (Auto) 1.0 H (0.1-0.6) K/mm3 Eos # (Auto) 0.0 (0-0.3) K/mm3 Baso # (Auto) 0.0 (0.0-0.1) K/mm3 Comprehensive Metabolic Panel 12/17/24 Range/Units 04:16 Sodium 134 L (137-145) mmol/L Potassium 3.8 (3.4-5.0) mmol/L Chloride 92 L (98-107) mmol/L Carbon Dioxide 34 H (22-30) mmol/L BUN 25 H (7-17) mg/dL Creatinine 0.83 (0.7-1.0) mg/dL Glucose 124 H (65-110) mg/dL Calcium 8.4 (8.4-10.2) mg/dL AST 22 (14-36) U/L ALT 29 (6-35) U/L Alkaline Phosphatase 79 (38-126) U/L Total Protein 6.0 L (6.3-8.2) g/dL Albumin 3.4 L (3.5-5.1) g/dL Intake and Output 12/16/24 12/17/24 12/17/24 23:59 07:59 15:59 Intake Total 1090 360 Output Total 1150 125 Balance -60 -125 360 Intake: IV 300 Azithromycin 500 mg/Ns 250 ml 250 500 mg In 250 ml @ 250 mls/hr IVPB Q24H ANA Rx#:[id number] Cefepime 2 gm/Ns 50 ml 2 gm In 50 50 ml @ 100 mls/hr IVPB Q12HR [facility] Rx#:[id number] Oral 790 360 Output: Urine 125 Catheter Urine 1150 Urethral Catheter 1150 Other: Number of Bowel Movements Today 2 Patient Weight 12/17/24 23:59 Weight 65.8 kg
[2024-12-17] MEDS: AZITHROMYCIN 250 MG TABLET 500 MG PO (21:21)
[2024-12-17] MEDS: FAMOTIDINE 20 MG TABLET 40 MG PO (21:21)
[2024-12-17] MEDS: METOPROLOL SUCCINATE EXT REL 25 MG TABCR PO (21:22)
[2024-12-17] MEDS: MIRTAZAPINE 7.5 MG TABLET PO (21:23)
[2024-12-17] MEDS: ACETAMINOPHEN 325 MG TABLET 650 MG PO (21:23)
[2024-12-18] VITALS (26 sets, daily range): BP systolic 102–141; BP diastolic 41–68; PULSE 57–89; RESP 18–20; TEMP 36.4–36.9; O2SAT 89–98
[2024-12-18 07:46] LABS: NT Pro B Type Natriuretic Pept 651 pg/mL (19.9-100)
[2024-12-18] MEDS: CEFEPIME 2 GM/NS 50 ML 2 GM/50 ML BAG IVPB ×2 (08:38→20:42)
[2024-12-18] MEDS: MAGNESIUM OXIDE 200 MG TABLET PO (08:40)
[2024-12-18] MEDS: FLECAINIDE ACETATE 100 MG TABLET PO ×2 (08:40→20:41)
[2024-12-18] MEDS: SACUBITRIL/VALSARTAN 24-26 MG TABLET 1 TAB PO ×2 (08:40→20:41)
[2024-12-18] MEDS: FUROSEMIDE INJ 40 MG/4 ML VIAL IV PUSH (08:40)
[2024-12-18] MEDS: CHOLECALCIFEROL 1,000 UNITS TABLET 1000 UNITS PO (08:40)
[2024-12-18] MEDS: EMPAGLIFLOZIN 10 MG TABLET PO (08:40)
[2024-12-18] MEDS: MULTIVITAMINS THERAPEUTIC TAB (*BKC) 1 TABLET PO (08:40)
[2024-12-18] MEDS: SERTRALINE HCL 50 MG TABLET PO (08:41)
[2024-12-18] MEDS: LIDOCAINE 5% PATCH 1 PATCH TRANSDERM (08:42)
[2024-12-18] MEDS: GABAPENTIN 300 MG CAPSULE PO ×2 (08:42→16:57)
[2024-12-18] MEDS: IPRATROPIUM 0.5 MG/ALBUTEROL SULFATE 2.5 MG AMPUL.NEB 3 ML INHALATION ×3 (09:01→20:36)
[2024-12-18] MEDS: ENOXAPARIN 40 MG/0.4 ML SYRINGE SUB-Q (09:32)
--- NOTE | 2024-12-18 10:42 | PM.PNPUL ---
Progress Note: A&P Assessment and Plan (1) Acute on chronic respiratory failure with hypoxia and hypercapnia: Code(s): J96.21 - Acute and chronic respiratory failure with hypoxia; J96.22 - Acute and chronic respiratory failure with hypercapnia Status: Acute Assessment and Plan: Patient has chronic hypoxemic respiratory failure and was discharged in September of 2024 after she had influenza with no oxygen at rest and 2 with activity. More recently she has required 2 L at rest, 2 L with activity and 1 L with sleep. Recently admitted to [facility] on 12/04/2024 through 12/06/2024 for COPD exacerbation and discharged on azithromycin and methylprednisolone. Blood gas on 12/04/2024 of 7.31/59/57 on room air. 7 hours later BiPAP blood gas 7.31/51/139 on BiPAP 12/6 and 45% FiO2. 12/15/2024: Patient presented to the emergency department with shortness of breath and altered mental status Related to fentanyl patch, fluid overload, and possible bronchitis-pneumonia with ABG on BiPAP 12/6 30% was 7.29/78 / less than 27. Etiology of acute on chronic respiratory failure with hypoxia and hypercarbia includes: Fluid overload, COPD, bronchiectasis, narcotic use, and possible respiratory infection. Plan: Currently patient is on 1 L nasal cannula saturations 92-94%. Goal saturation 90-94%. I will check an overnight oximetry tonight on 1 L nasal cannula to assess for nocturnal hypoxemia. Currently the patient is awake and mentating. I will discontinue the BiPAP tonight and place her on 1 L nasal cannula oxygen and check a blood gas at off of BiPAP for 24 hours tomorrow morning. Regarding her bronchiectasis the patient has a compression fracture in her back and up pathologic rib fracture and will discontinue vest therapy at this time. Will continue Cornet flutter valve, nebulized bronchodilators to aid in sputum expectoration. Patient states she is not having trouble expectorating and I will not start guaifenesin. 12/19/2023: Overall the patient is improved but she still has increased dyspnea on exertion, increased dry cough. Patient slept well on 1 L nasal cannula. States her pain is well controlled. Patient had an overnight oximetry on 1 L with recording duration of 6 hours and 42 minutes. Average saturation 92%. Low saturation 78%. Time with saturation less than or equal to 88% was 49 minutes. Oxygen desaturation index 0.9. Patient is walking in the halls with physical therapy and had desaturations on 3 L. cumulative she is positive 200 mL since admission. Weight today is 66 kg. Continues on Lasix 40 IV q.day. plan: Patient is not having any phlegm production which is new for her. She has use she makes per phlegm every day. Patient has been off of BiPAP for 24 hours and will obtain ABG to assess for hypercarbic respiratory failure. Will perform overnight oximetry on 2 L tonight. if she remains clinically stable possible discharge on 12/19/2024. Discussed with Dr. Gaitan. Will follow with you. (2) CHF (congestive heart failure): Qualifiers: Heart failure chronicity: acute on chronic Heart failure type: combined systolic and diastolic Qualified Code(s): I50.43 - Acute on chronic combined systolic (congestive) and diastolic (congestive) heart failure Code(s): I50.9 - Heart failure, unspecified Status: Acute Assessment and Plan: 12/17/24: Patient presents with worsening shortness of breath, worsening hypoxia, chest x-ray with congestion, BNP 3230. Patient has been treated with IV Lasix and she is clinically improved and her edema has decreased. Plan: Patient has made a rather quick recovery and I suspect the majority of her problem was related to fluid overload. Agree with diuresis as tolerated by her cardiac and renal systems per Cardiology and the hospitalist team. Currently she is on Lasix 40 IV q.day. her weight today is 65.8 with an admission weight of 65 kg. Of note her discharge weight on 12/10/2024 was 60.5 kg. Later in the day echocardiogram with EF 55-60, grade 1 diastolic dysfunction, normal RV size and function, moderately enlarged right atrium, PASP 39. 12/18/2024: BNP improved to 651. Plan: Agree with as aggressive diuresis as tolerated by cardiac and renal system per Cardiology and hospitalist team. Currently she is on Lasix 40 IV q.day. (3) Chronic obstructive pulmonary disease, unspecified: Code(s): J44.9 - Chronic obstructive pulmonary disease, unspecified Status: Acute Assessment and Plan: Patient has remote tobacco use, carries a diagnosis of COPD by her current composite science teacher and is maintained on Anoro Ellipta at 1 puff q.day and rescue albuterol DuoNebs which she takes 1 time a week. 12/17/2024: Currently the patient has no wheezing, no change in her phlegm volume or production and no cough. I do not think she has a COPD exacerbation. Plan: I will continue DuoNebs q.6 hours at this time. I will discontinue her Anoro Ellipta as she is on maximal beta agonist and muscarinic antagonists with the DuoNebs. I see no need for inhaled steroids or systemic steroids at this time. Goal saturation 90-94%. Wean oxygen accordingly. Patient may have a pneumonia or bronchitis and she has improved and I will contnue cefepime and azithromycin both day 3. 12/18/2024: White blood cell count 10.0, creatinine 0.83. she has squeaks and crackles in her lower lobes. no wheezing today. 1 L nasal cannula saturations 93%. Plan: Continue DuoNebs q.6 hours. Goal saturation 90-94%. she will need home O2 assessment prior to discharge. Subjective Date/time seen: 12/18/24 10:42 Interval history: 12/17/2024: This is a new pulmonary consult for acute on chronic hypoxemic and hypercarbic respiratory failure. 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 metastatic breast cancer with chronic pain, and HTN. Patient follows with composite science teacher Dr. Flynn, [facility] for the last 6 years. Patient has a follow-up appointment on 12/24/2024 with him. regarding her COPD she is maintained on Anoro Ellipta and rescue DuoNebs which she uses approximately 1 time a week. The patient was admitted to [facility] in September of 2024 with influenza. She was admitted for 5 days and on discharge she was told she needed no oxygen at rest and 2 L with activity. 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 She had a left-sided lumpectomy 01/30/2024 patient refused radiation therapy and endocrine therapy. Patient refused radiation therapy and refused endocrine therapy. PET scan 12/10/2024 showed avid lymph nodes left axilla, avid lesion left 5th rib, right scapula and the patient was to start Ibrance and anastrozole to start monthly Xgeva. If pain does not get any better then we will consider radiation oncology consultation or even kyphoplasty. 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 01/13/2022 sputum with Pseudomonas aeruginosa and fluorescens. 03/02/2021 sputum with GLORIA. 02/24/2021 sputum with GLORIA. patient was referred to [facility] and followed with them and perform serial sputums and the patient and family were told she did not have active infection and needed no treatment. She was last seen by them and 2021. After she was discharged in September of 2024 from influenza a she has never fully recovered back to her PD pre influenza state. She has required more oxygen and typically has been using 1 L during the day. Recently admitted to [facility] on 12/04/2024 through 12/06/2024 for COPD exacerbation and discharged on azithromycin and methylprednisolone. Blood gas on 12/04/2024 of 7.31/59/57 on room air. 7 hours later BiPAP blood gas 7.31/51/139 on BiPAP 12/6 and 45% FiO2. Patient completed her medications and was feeling better. She continued to have back pain and Fentanyl patch was started by PCP. On 12/08/2024 the patient developed worsening shortness of breath, leg swelling, increased oxygen requirements of 2 L at rest, 2 L with activity and 1 L at night. She denied any change in her cough or change in her chronic phlegm production. The PET no patch helped her pain go from a 8/10 to a 5 to 6/10. A on 12/11/2024 her fentanyl patch was increased to 37.5 and on 12/13 the patient had altered mental status with falling asleep and hallucinations. On 12/14/2024 the patient was weak, had shortness of breath and required 3 L oxygen but had no change in her cough or phlegm volume or change in color of her phlegm. On 12/15 in the morning the patient was lethargic and brought to the emergency department. 12/15/2024: Patient presented to the emergency department with shortness of breath and altered mental status. She finished her azithromycin on 11/13/2024 and her DuoNebs were also discontinued at that time. She is on narcotics for pain Patient was hypoxic at her facility and sent to the emergency department. She was A&O x2, chronically ill-appearing. Clear to auscultation. Afebrile. Blood pressure 161/84, heart rate 77, respirations 14. Patient was placed on BiPAP. White blood cell count 13.8, creatinine 0.62, eosinophils 0.3%. BNP 3230. ABG on BiPAP 12/6 30% was 7.29/78 / less than 27. chest x-ray with bibasilar interstitial infiltrates right lower lobe greater than left, pulmonary vascular redistribution, infiltrates and tenting of the right pleural space is new since 12/03/2024. Patient had radial and ulnar styloid fractures. her BiPAP rate was increased to 20, she was given IV Lasix, she was started on cefepime and vancomycin for possible healthcare associated pneumonia. Fentanyl was decreased. patient with a temperature of 38.4? at 4:00 p.m.. On 12/17/2023 shortness of breath is better today. She had nonproductive cough. No chest pain but pleuritic left posterior shoulder pain. weaned off BiPAP and now on 6 L. fluid status better with Lasix. Fever curve better. white blood cell count 10.0. ABG at 5 in the morning on BiPAP 12/6 and 30% with pH 7.37/67/66 12/18/2023: Vancomycin discontinued. Continue azithromycin for atypical coverage. Patient is afebrile since 12/15/2024. Procalcitonin 0.3, blood cultures negative. Chest x-ray with improved bibasilar interstitial alveolar infiltrates compared to 12/15/2024. Currently the patient Tells me that her breathing, cough, phlegm volume and phlegm color are much improved and a are the same as her baseline after influenza a infection. she was on room air during the day earlier but when she ambulated she had desaturations into the 70s and was placed on 3 L. When I enter the room she was on 3 L nasal cannula with saturations 95%. I decreased her to room air and after 7 minutes her saturations were 88% and I placed her back on 1 L and her saturations remain 92-94%. white blood cell count10.0, Cr 0.83, Weight is 65.8 with an admission weight of 65.0. Of note, weight was 60 point 5 kg on discharge on 12/10/2024. since admission she is -440 mL. Later in the day echocardiogram with EF 55-60, grade 1 diastolic dysfunction, normal RV size and function, moderately enlarged right atrium, PASP 39. 12/19/2023: Overall the patient is improved but she still has increased dyspnea on exertion, increased dry cough. Patient slept well on 1 L nasal cannula. White blood cell count 10.0, creatinine 0.83 BNP improved to 651. Patient had an overnight oximetry on 1 L with recording duration of 6 hours and 42 minutes. Average saturation 92%. Low saturation 78%. Time with saturation less than or equal to 88% was 49 minutes. Oxygen desaturation index 0.9. Patient is walking in the halls with physical therapy and had desaturations on 3 L. cumulative she is positive 200 mL since admission. Weight today is 66 kg. Continues on Lasix 40 IV q.day. DATA: 12/17/24: Summary 1. Left ventricular chamber dimension is normal. 2. Left ventricular systolic function is normal, estimated at 50-55%. 3. There is mildly increased left ventricular wall thickness. 4. Left ventricular septal wall motion is abnormal with septal motion related to bundle branch block. 5. The left ventricular diastolic function is grade I diastolic dysfunction. 6. Right ventricular systolic function is normal. 7. Left atrial chamber dimension is moderately enlarged. 8. Right atrial chamber dimension is moderately enlarged. 9. There is mild mitral valve regurgitation. 10. There is mild tricuspid valve regurgitation. 11. Estimated pulmonary arterial systolic pressure is 39 mmHg. 12. Normal inferior vena cava with >50% collapse upon inspiration consistent with normal right atrial pressure, 3 mmHg. Right Ventricle Right ventricular chamber dimension is normal. Right ventricular systolic function is normal. Right Atria Right atrial chamber dimension is moderately enlarged. Atrial Septum Intact interatrial septum visualized by color flow imaging. 12/03/2024: CLINICAL INDICATION: Shortness of breath and hypoxia. Personal history of breast cancer COMPARISON: None. Reference is made to a plain film evaluation of the thoracic spine dated 11/04/2024 and a PA and lateral radiograph of the chest dated 08/24/2024. FINDINGS/OBSERVATIONS: LUNG:Cylindrical and varicose bronchiectasis is identified within the bilateral lung johnson. No discrete consolidation, noncalcified pulmonary nodules or discrete lung mass is identified. Interstitial thickening is noted with a calcified nodule in the right axilla lower lobe suggesting prior granulomatous disease. HEART: The heart is of normal size, without pericardial effusion. MEDIASTINUM: Interval development of multiple lymph nodes within the mediastinum. Calcified lymph nodes within the right hilum, likely corresponding to the appearance on plain film evaluation. No pathologically enlarged or morphologically suspicious lymph nodes are identified within the right axilla, or within the soft tissues of the anterior chest wall. Redemonstration of the pathologically enlarged lymph node within the left axilla, consistent with patient's history.. SOFT TISSUES OF THE CHEST: Unremarkable. BONES OF THE CHEST: No acute fracture. No lytic or blastic lesions are identified. Anterior wedge compression of the the T6 vertebral body is redemonstrated, unchanged from 11/04/2024 plain film evaluation, but an interval change from plain film evaluation dated 08/24/2024. Given the increased attenuation within the T6 vertebral body, a pathologic fracture cannot be excluded. UPPER ABDOMEN: Limited evaluation without intravenous contrast. IMPRESSION: Redemonstration of the T6 vertebral body fracture which also demonstrates increased attenuation for which a pathologic fracture cannot be excluded. Interval development of the mediastinal lymphadenopathy, corresponding to the abnormality seen on plain film radiograph. Cylindrical and varicose bronchiectasis is also noted. 11/20/24: A. Left axillary lymph node, needle biopsy: - Metastatic adenocarcinoma consistent with history of breast primary B. Left axillary scar lesion, needle biopsy: - Metastatic adenocarcinoma consistent with history of breast primary 12/24/2020: CT scan report from [facility]. Clinical history: GLORIA complex. Comparison 02/25/2018. Fibro atelectasis in the right middle lobe and lingula unchanged. Bilateral bronchiectasis, most notable in the anterior lung zones unchanged. Cystic bronchiectasis in the superior segment of the right lower lobe again identified. Associated mucus plugging and bronchial wall thickening again identified. Bilateral scattered tree-in-bud opacifications are grossly unchanged. Calcified granuloma. No suspicious lung mass or consolidation. Biapical pleural parenchymal scarring. 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 Associated pleural thickening versus atelectasis. Small pulmonary on pulmonary nodules in these areas are not excluded Bronchiectasis, emphysematous change, and likely mucous plugging and multiple bronchi is noted. Subtle pulmonary nodules or endobronchial lesions are not excluded. Continued follow-up is recommended for surveillance. Follow-up in 3 months is recommended. Mild pleural thickening and/or consolidation in the right middle lobe and lingula. Review of Systems Constitutional: Constitutional: Reports no additional constitutional complaints Eyes: Eyes: Reports no additional eye complaints ENT: Reports system reviewed and no additional complaints, except as documented Cardiovascular: Cardiovascular: Reports no additional cardiovascular complaints Respiratory: Respiratory: Reports no additional respiratory complaints Gastrointestinal: Gastrointestinal: Reports no additional gastrointestinal complaints Musculoskeletal: Musculoskeletal: Reports no additional musculoskeletal complaints Neurologic: Reports system reviewed and no additional complaints, except as documented Psychiatric: Psychiatric: Reports no additional psychiatric complaints Endocrine: Endocrine: Reports no additional endocrine complaints Hematologic/Lymphatic: Hematologic/Lymphatic: Reports no additional hematologic/lymphatic complaints Allergic/Immunologic: Allergic/Immunologic: Reports no additional allergic/immunologic complaints Exam Const: General: cooperative, healthy appearing and comfortable Orientation/consciousness: oriented to person, oriented to place and oriented to time HENMT: Head: normal to inspection Ears: hearing grossly normal bilaterally Eyes: General: appearance normal, both eyes and all related structures Neck: Neck: normal visual inspection Chest: Chest palpation & inspection: normal inspection of the chest Resp: Effort & Inspection: normal respiratory effort and able to speak in complete sentences Auscultation: crackles, no rales, no rhonchi, no wheezes and lung sounds not diminished Other: bases Cardio: Jugular venous distension: no JVD GI: Inspection: normal to inspection Skin: General skin exam: normal color Neuro: General: oriented to person, oriented to place and oriented to time Extrem: General: normal to inspection and edema Other: Trace edema and improved per the patient. Psych: Appearance: grossly normal Objective Data Vital Signs Vital Signs: Vital Signs - 24 hr 12/17/24 10:47 12/17/24 11:42 12/17/24 12:00 Temperature 36.8 C Pulse Rate 75 74 72 Respiratory Rate 20 18 Blood Pressure 115/45 L Pulse Oximetry 92 Oxygen Delivery Oxygen Flow Rate Fraction of Inspired Oxygen 12/17/24 12:46 12/17/24 14:00 12/17/24 14:42 Temperature Pulse Rate 79 82 Respiratory Rate 20 Blood Pressure Pulse Oximetry 100 Oxygen Delivery High Flow Nasal Cannula Oxygen Flow Rate 2 Fraction of Inspired Oxygen 12/17/24 14:52 12/17/24 14:59 12/17/24 15:26 Temperature Pulse Rate 77 Respiratory Rate 20 Blood Pressure Pulse Oximetry Oxygen Delivery Nasal Cannula Nasal Cannula Oxygen Flow Rate 3 3 Fraction of Inspired Oxygen 12/17/24 16:00 12/17/24 16:00 12/17/24 16:00 Temperature 37.2 C Pulse Rate 88 87 Respiratory Rate 25 H Blood Pressure 117/54 L Pulse Oximetry 95 98 Oxygen Delivery High Flow Nasal Cannula Oxygen Flow Rate 1 Fraction of Inspired Oxygen 12/17/24 18:00 12/17/24 19:37 12/17/24 19:37 Temperature Pulse Rate 85 92 Respiratory Rate 20 Blood Pressure Pulse Oximetry 96 Oxygen Delivery High Flow Nasal Cannula Oxygen Flow Rate 2 Fraction of Inspired Oxygen 12/17/24 19:50 12/17/24 20:00 12/17/24 20:00 Temperature Pulse Rate 88 84 92 Respiratory Rate 20 18 Blood Pressure Pulse Oximetry 92 Oxygen Delivery Nasal Cannula Oxygen Flow Rate 2 Fraction of Inspired Oxygen 12/17/24 20:03 12/17/24 21:22 12/17/24 21:22 Temperature 36.8 C Pulse Rate 92 88 88 Respiratory Rate 18 Blood Pressure 117/51 L Pulse Oximetry 95 Oxygen Delivery Oxygen Flow Rate Fraction of Inspired Oxygen 12/17/24 23:00 12/17/24 23:56 12/18/24 00:00 Temperature Pulse Rate 60 61 Respiratory Rate Blood Pressure Pulse Oximetry 94 94 Oxygen Delivery Nasal Cannula Oxygen Flow Rate 1 Fraction of Inspired Oxygen 24 12/18/24 04:00 12/18/24 06:00 12/18/24 07:45 Temperature 36.4 C Pulse Rate 60 57 L 70 Respiratory Rate 20 Blood Pressure 123/48 L Pulse Oximetry 93 Oxygen Delivery Oxygen Flow Rate Fraction of Inspired Oxygen 12/18/24 08:40 12/18/24 09:03 12/18/24 09:04 Temperature Pulse Rate 80 77 Respiratory Rate 20 Blood Pressure Pulse Oximetry 89 L Oxygen Delivery Nasal Cannula Oxygen Flow Rate 1 Fraction of Inspired Oxygen 12/18/24 09:17 Temperature Pulse Rate 75 Respiratory Rate 20 Blood Pressure Pulse Oximetry Oxygen Delivery Oxygen Flow Rate Fraction of Inspired Oxygen Intake/Output Intake/Output: Intake & Output 12/15/24 12/16/24 12/17/24 12/18/24 23:59 23:59 23:59 23:59 Intake Total 690 1760 1100 420 Output Total 1650 1475 475 Balance -960 285 625 420 Meds/Results Medications: Active Medications Generic Name Dose Route Start Last Admin Trade Name Freq PRN Reason Stop Dose Admin Acetaminophen 650 mg 12/15/24 15:19 12/17/24 21:23 Acetaminophen 325 Mg Tablet PO 650 mg Q4H PRN Administration Mild Pain (1-3) or Fever Hydrocodone Bitart/Acetaminophen 1 tab 12/15/24 22:01 Hydrocodone/Acetaminophen (*Crx) 5-325 Mg Tablet PO Q6H PRN Pain Rated 7-10 Albuterol/Ipratropium 3 ml 12/16/24 02:00 12/18/24 09:01 Ipratropium 0.5 Mg/Albuterol Sulfate 2.5 Mg Ampul.Neb 3 Ml INHALATION 3 ml Q6HRT ANA Administration Alprazolam 0.25 mg 12/15/24 22:01 12/15/24 22:22 Alprazolam (*Crx) 0.25 Mg Tablet PO 0.25 mg TID PRN Administration anxiety Azithromycin 500 mg 12/17/24 21:00 12/17/24 21:21 Azithromycin 250 Mg Tablet PO 12/19/24 21:01 500 mg QHS ANA Administration Diclofenac Sodium 50 mg 12/15/24 23:14 Diclofenac Sod 25 Mg Tablet.Ec PO Q12H PRN pain 4-6 Empagliflozin 10 mg 12/16/24 09:00 12/18/24 08:40 Empagliflozin 10 Mg Tablet PO 10 mg DAILY ANA Administration Enoxaparin Sodium 40 mg 12/16/24 09:00 12/18/24 09:32 Enoxaparin 40 Mg/0.4 Ml Syringe SUB-Q 40 mg DAILY ANA Administration Famotidine 40 mg 12/15/24 22:05 12/17/24 21:21 Famotidine 20 Mg Tablet PO 40 mg QHS ANA Administration Fentanyl 25 mcg 12/17/24 09:55 12/17/24 10:50 Fentanyl (*Crx) 25 Mcg Patch TRANSDERM 25 mcg Q72HR ANA Administration Flecainide Acetate 100 mg 12/16/24 09:00 12/18/24 08:40 Flecainide Acetate 100 Mg Tablet PO 100 mg Q12HR ANA Administration Furosemide 40 mg 12/16/24 09:00 12/18/24 08:40 Furosemide Inj 40 Mg/4 Ml Vial IV PUSH 40 mg DAILY ANA Administration Gabapentin 300 mg 12/16/24 09:00 12/18/24 08:42 Gabapentin 300 Mg Capsule PO 300 mg BID ANA Administration Cefepime HCl 2 gm in 50 mls @ 100 mls/hr 12/15/24 21:00 12/18/24 08:38 Maxipime 2 Gm/Ns 50 Ml IVPB 100 mls/hr Q12HR ANA Administration Lidocaine 1 patch 12/16/24 09:00 12/18/24 08:42 Lidocaine 5% Patch TRANSDERM 1 patch DAILY ANA Administration Magnesium Oxide 200 mg 12/16/24 09:00 12/18/24 08:40 Magnesium Oxide 200 Mg Tablet PO 200 mg DAILY ANA Administration Metoprolol Succinate 25 mg 12/16/24 21:00 12/17/24 21:22 Metoprolol Succinate Ext Rel 25 Mg Tabcr PO 25 mg QHS ANA Administration Mirtazapine 7.5 mg 12/15/24 22:05 12/17/24 21:23 Mirtazapine 7.5 Mg Tablet PO 7.5 mg QHS ANA Administration Multivitamins Therapeutic 1 tablet 12/16/24 09:00 12/18/24 08:40 Multivitamins Therapeutic Tab (*Bkc) PO 1 tablet DAILY ANA Administration Ondansetron HCl 4 mg 12/15/24 15:19 Ondansetron Inj 4 Mg/2 Ml Vial IV PUSH Q4H PRN Nausea Perflutren Lipid Microsphere 0 ml 12/16/24 15:34 Perflutren Lipid Microspheres 1.5 Ml Vial Diluted To 10 Ml Total Volume IV PUSH 12/19/24 15:34 ONCE PRN adequate visualization Protocol Sacubitril/Valsartan 1 tab 12/16/24 09:00 12/18/24 08:40 Sacubitril/Valsartan 24-26 Mg Tablet PO 1 tab Q12HR ANA Administration Sertraline HCl 50 mg 12/16/24 09:00 12/18/24 08:41 Sertraline Hcl 50 Mg Tablet PO 50 mg DAILY ANA Administration Vitamin D 1,000 units 12/16/24 09:00 12/18/24 08:40 Cholecalciferol 1,000 Units Tablet PO 1,000 units DAILY ANA Administration Radiology Results: ITS Impressions Wrist X-Ray 12/15/24 12:55 IMPRESSION: 1. Nondisplaced avulsion fractures of the ulnar styloid. 2. Age-indeterminate nondisplaced fracture of radial styloid. 3. Small bone fragment dorsal to the carpus on the lateral view, which may be an avulsion fracture of dorsal pole of triquetrum. 4. Polyarticular osteoarthritis. Head CT 12/15/24 17:34 Impression: No acute intracranial hemorrhage or suspicious mass effect. Chest X-Ray 12/17/24 06:21 Impression: Probable mild bibasilar pulmonary edema and minimal pleural effusions. Underlying COPD pattern. Labs Labs: Laboratory Results - last 24 hr 12/18/24 07:11 NT-Pro-B Natriuret Pep 651 H
--- NOTE | 2024-12-18 10:47 | PM.IMPN ---
Progress Note: A&P Assessment and Plan (1) Acute on chronic respiratory failure with hypoxia and hypercapnia: Code(s): J96.21 - Acute and chronic respiratory failure with hypoxia; J96.22 - Acute and chronic respiratory failure with hypercapnia Status: Acute Assessment and Plan: Patient with acute on chronic respiratory failure. multifactorial acute on chronic s/d CHF exacerbation with PNA and possibly interstitial lung disease/COPD. Patient also with bronchiectasis and MAC history; she has been unable to tolerate vest therapy well at home. DC vest Also consider related to hypopnea related to over medication from narcotics - was getting fentanyl patch for her chronic pain. Weaned off Bipap and now on 2lit O2 saturation 93% Plan for repeat ABG Fluid status much better with lasix. Continue nebulizer treatments. Continue schedule vest therapy as tolerated. Continue BiPAP at night and with naps; okay to use as needed during the day if feeling SOB. Abx started with Rocephin and azithromycin but changed to cefepime and vancomycin. will DC Vanc. Continue azithromycin for atypical coverage. Continue antibiotics while inpatient MRSA negative. COVID, RSV and influenza PCR negative. PCT 0.3. BCx NGTD. Continue abx. continue LAsix, Entresto, metoprolol. I added spironolactone Condition on board Pulmonary team on board plan for decided study (2) Sepsis: Qualifiers: Sepsis type: sepsis due to unspecified organism Sepsis acute organ dysfunction status: with acute organ dysfunction Severe sepsis acute organ dysfunction type: acute respiratory failure Acute respiratory failure type: with hypercapnia Severe sepsis shock status: without septic shock Qualified Code(s): A41.9 - Sepsis, unspecified organism; R65.20 - Severe sepsis without septic shock; J96.02 - Acute respiratory failure with hypercapnia Code(s): A41.9 - Sepsis, unspecified organism Status: Acute Assessment and Plan: As above. Related to PNA (3) CHF (congestive heart failure): Qualifiers: Heart failure chronicity: acute on chronic Heart failure type: combined systolic and diastolic Qualified Code(s): I50.43 - Acute on chronic combined systolic (congestive) and diastolic (congestive) heart failure Code(s): I50.9 - Heart failure, unspecified Status: Acute Assessment and Plan: As above. Echo in 08/29/24 showing normal LV size, mild LV systolic dysfunction, EF 40-45% Lasix prn (4) Pneumonia: Qualifiers: Laterality: bilateral Lung location: unspecified part of lung Pneumonia type: due to unspecified organism Qualified Code(s): J18.9 - Pneumonia, unspecified organism Code(s): J18.9 - Pneumonia, unspecified organism Status: Acute Assessment and Plan: As above. (5) Invasive ductal carcinoma of left breast: Code(s): C50.912 - Malignant neoplasm of unspecified site of left female breast Status: Acute Assessment and Plan: Patietn with known breast CA. Recent PET scan 12/10/24 showing increased uptake in the lymph nodes at the left axilla extending to lateral left breast consistent with local metastatic disease, increased uptake with subtle lytic lesions in the left 5th rib and right scapula. Mild diffuse uptake associated with T6 and T7 compression fractures and fractures of the immediately adjacent posterior right 6th and 8th rib. Cannot exclude pathological fractures. Supportive care. Pain control (6) Cancer, metastatic to bone: Code(s): C79.51 - Secondary malignant neoplasm of bone Status: Acute Assessment and Plan: As above (7) Left radial head fracture: Qualifiers: Encounter type: initial encounter Fracture type: closed Fracture alignment: nondisplaced Qualified Code(s): S52.125A - Nondisplaced fracture of head of left radius, initial encounter for closed fracture Code(s): S52.122A - Displaced fracture of head of left radius, initial encounter for closed fracture Status: Deleted Assessment and Plan: Patient's left radial and ulnar fractures likely related to her fall that occurred before her last hospitalization. Her wrist is currently splinted. Orthopedic surgery has been consulted. plan for conservative management Will elevate extremity to help reduce edema. Continue supportive care. (8) Left ulnar fracture: Qualifiers: Encounter type: initial encounter Ulna location: styloid process Fracture type: closed Fracture alignment: nondisplaced Qualified Code(s): S52.615A - Nondisplaced fracture of left ulna styloid process, initial encounter for closed fracture Code(s): S52.202A - Unspecified fracture of shaft of left ulna, initial encounter for closed fracture Status: Acute Assessment and Plan: As above Plan DVT prophyalxis - Lovenox Code status - DNR Subjective Date/time seen: 12/18/24 10:47 Interval history: 84yo female with combined systolic and diastolic CHF, COPD with chronic hypoxic hypercapnic respiratory failure on home O2 of 2 L, chronic MAC, and 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 SOB better today. has a nonproductive cough. Hx of pseudomonas infection. No CP but has pleuritic left posterior shoulder pain. Weaned to 6L. The facial edema is better. 12/17/24 Patient was seen and examined at bedside. She has been better. Breathing improving but still needs 6l. Bilateral edema improving. Continue BIPAP as needed and at night 12/18/24 Patient was seen and examined at bedside. She is feeling better. Oxygen saturation 92% on 2 L oxygen. Denies any chest pain, abdominal pain, nausea vomiting. Discussed with pulmonary team. Plan for desat study on 2 L oxygen tonight. DC vest. Cardiology team on board. Continue with Lasix, Entresto and Jardiance. Review of Systems Review of Systems: 12 systems were reviewed with pertinent positives and negatives per HPI. Except as documented in the HPI, all other systems were reviewed and are negative. Exam Narrative: 98.7 94/40 73 20 96% HFNC Gen - NARD Chest - inspiratory rhonchi in the mid and lower lung johnson. CV - RRR S1/S2; Tele showing sinus with PVCs Abd - soft, NT/ND, +BS Ext - trace zbigniew-ankle edema. Neuro - alert and appropriate Psych - pleasant and cooperative Skin - warm and dry Const: Other: well-developed well-nourished, elderly, debilitated HENMT: Other: Mucous membranes are ok, no oral pharyngeal erythema, fair dentition, head is normocephalic atraumatic Eyes: Other: pupils are equal and reactive with evidence of bilateral lens implants Neck: Other: No JVD, no lymphadenopathy Resp: Other: mild tachypnea, coarse crackles throughout Cardio: Other: Regular rate, regular rhythm, trace bilateral radial pedal pulses GI: Other: Soft, nontender, nondistended, positive bowel sounds Back/Spine/Pelvis: Other: Thoracic kyphosis Skin: Other: Warm to touch, non jaundice, mild pallor Neuro: Other: Alert oriented x4, speech is clear, no facial asymmetry, no localizing neurologic deficits noted during the course of conversation Extrem: Other: Bilateral upper extremity edema trace left greater than right, left upper extremity has splint in place, trace lower extremity edema bilaterally Psych: Other: Appropriate mood and affect, pleasant and cooperative, judgment and insight intact Objective Data Vital Signs Vital Signs: Vital Signs - 24 hr 12/17/24 11:42 12/17/24 12:00 12/17/24 12:46 Temperature 98.2 F Pulse Rate 74 72 Respiratory Rate 18 Blood Pressure 115/45 L Pulse Oximetry 92 100 Oxygen Delivery High Flow Nasal Cannula Oxygen Flow Rate 2 Fraction of Inspired Oxygen 12/17/24 14:00 12/17/24 14:42 12/17/24 14:52 Temperature Pulse Rate 79 82 77 Respiratory Rate 20 20 Blood Pressure Pulse Oximetry Oxygen Delivery Oxygen Flow Rate Fraction of Inspired Oxygen 12/17/24 14:59 12/17/24 15:26 12/17/24 16:00 Temperature 99.0 F Pulse Rate 88 Respiratory Rate 25 H Blood Pressure 117/54 L Pulse Oximetry 95 Oxygen Delivery Nasal Cannula Nasal Cannula Oxygen Flow Rate 3 3 Fraction of Inspired Oxygen 12/17/24 16:00 12/17/24 16:00 12/17/24 18:00 Temperature Pulse Rate 87 85 Respiratory Rate Blood Pressure Pulse Oximetry 98 Oxygen Delivery High Flow Nasal Cannula Oxygen Flow Rate 1 Fraction of Inspired Oxygen 12/17/24 19:37 12/17/24 19:37 12/17/24 19:50 Temperature Pulse Rate 92 88 Respiratory Rate 20 20 Blood Pressure Pulse Oximetry 96 Oxygen Delivery High Flow Nasal Cannula Oxygen Flow Rate 2 Fraction of Inspired Oxygen 12/17/24 20:00 12/17/24 20:00 12/17/24 20:03 Temperature 98.2 F Pulse Rate 84 92 92 Respiratory Rate 18 18 Blood Pressure 117/51 L Pulse Oximetry 92 95 Oxygen Delivery Nasal Cannula Oxygen Flow Rate 2 Fraction of Inspired Oxygen 12/17/24 21:22 12/17/24 21:22 12/17/24 23:00 Temperature Pulse Rate 88 88 Respiratory Rate Blood Pressure Pulse Oximetry 94 Oxygen Delivery Nasal Cannula Oxygen Flow Rate 1 Fraction of Inspired Oxygen 24 12/17/24 23:56 12/18/24 00:00 12/18/24 04:00 Temperature Pulse Rate 60 61 60 Respiratory Rate Blood Pressure Pulse Oximetry 94 Oxygen Delivery Oxygen Flow Rate Fraction of Inspired Oxygen 12/18/24 06:00 12/18/24 07:45 12/18/24 08:40 Temperature 97.6 F Pulse Rate 57 L 70 80 Respiratory Rate 20 Blood Pressure 123/48 L Pulse Oximetry 93 Oxygen Delivery Oxygen Flow Rate Fraction of Inspired Oxygen 12/18/24 09:03 12/18/24 09:04 12/18/24 09:17 Temperature Pulse Rate 77 75 Respiratory Rate 20 20 Blood Pressure Pulse Oximetry 89 L Oxygen Delivery Nasal Cannula Oxygen Flow Rate 1 Fraction of Inspired Oxygen Intake/Output Intake/Output: Intake & Output 12/15/24 12/16/24 12/17/24 12/18/24 23:59 23:59 23:59 23:59 Intake Total 690 1760 1100 420 Output Total 1650 1475 475 Balance -960 285 625 420 Meds/Results Medications: Active Medications Generic Name Dose Route Start Last Admin Trade Name Freq PRN Reason Stop Dose Admin Acetaminophen 650 mg 12/15/24 15:19 12/17/24 21:23 Acetaminophen 325 Mg Tablet PO 650 mg Q4H PRN Administration Mild Pain (1-3) or Fever Hydrocodone Bitart/Acetaminophen 1 tab 12/15/24 22:01 Hydrocodone/Acetaminophen (*Crx) 5-325 Mg Tablet PO Q6H PRN Pain Rated 7-10 Albuterol/Ipratropium 3 ml 12/16/24 02:00 12/18/24 09:01 Ipratropium 0.5 Mg/Albuterol Sulfate 2.5 Mg Ampul.Neb 3 Ml INHALATION 3 ml Q6HRT ANA Administration Alprazolam 0.25 mg 12/15/24 22:01 12/15/24 22:22 Alprazolam (*Crx) 0.25 Mg Tablet PO 0.25 mg TID PRN Administration anxiety Azithromycin 500 mg 12/17/24 21:00 12/17/24 21:21 Azithromycin 250 Mg Tablet PO 12/19/24 21:01 500 mg QHS ANA Administration Diclofenac Sodium 50 mg 12/15/24 23:14 Diclofenac Sod 25 Mg Tablet.Ec PO Q12H PRN pain 4-6 Empagliflozin 10 mg 12/16/24 09:00 12/18/24 08:40 Empagliflozin 10 Mg Tablet PO 10 mg DAILY ANA Administration Enoxaparin Sodium 40 mg 12/16/24 09:00 12/18/24 09:32 Enoxaparin 40 Mg/0.4 Ml Syringe SUB-Q 40 mg DAILY ANA Administration Famotidine 40 mg 12/15/24 22:05 12/17/24 21:21 Famotidine 20 Mg Tablet PO 40 mg QHS ANA Administration Fentanyl 25 mcg 12/17/24 09:55 12/17/24 10:50 Fentanyl (*Crx) 25 Mcg Patch TRANSDERM 25 mcg Q72HR ANA Administration Flecainide Acetate 100 mg 12/16/24 09:00 12/18/24 08:40 Flecainide Acetate 100 Mg Tablet PO 100 mg Q12HR ANA Administration Furosemide 40 mg 12/16/24 09:00 12/18/24 08:40 Furosemide Inj 40 Mg/4 Ml Vial IV PUSH 40 mg DAILY NAA Administration Gabapentin 300 mg 12/16/24 09:00 12/18/24 08:42 Gabapentin 300 Mg Capsule PO 300 mg BID ANA Administration Cefepime HCl 2 gm in 50 mls @ 100 mls/hr 12/15/24 21:00 12/18/24 08:38 Maxipime 2 Gm/Ns 50 Ml IVPB 100 mls/hr Q12HR ANA Administration Lidocaine 1 patch 12/16/24 09:00 12/18/24 08:42 Lidocaine 5% Patch TRANSDERM 1 patch DAILY ANA Administration Magnesium Oxide 200 mg 12/16/24 09:00 12/18/24 08:40 Magnesium Oxide 200 Mg Tablet PO 200 mg DAILY ANA Administration Metoprolol Succinate 25 mg 12/16/24 21:00 12/17/24 21:22 Metoprolol Succinate Ext Rel 25 Mg Tabcr PO 25 mg QHS ANA Administration Mirtazapine 7.5 mg 12/15/24 22:05 12/17/24 21:23 Mirtazapine 7.5 Mg Tablet PO 7.5 mg QHS ANA Administration Multivitamins Therapeutic 1 tablet 12/16/24 09:00 12/18/24 08:40 Multivitamins Therapeutic Tab (*Bkc) PO 1 tablet DAILY ANA Administration Ondansetron HCl 4 mg 12/15/24 15:19 Ondansetron Inj 4 Mg/2 Ml Vial IV PUSH Q4H PRN Nausea Perflutren Lipid Microsphere 0 ml 12/16/24 15:34 Perflutren Lipid Microspheres 1.5 Ml Vial Diluted To 10 Ml Total Volume IV PUSH 12/19/24 15:34 ONCE PRN adequate visualization Protocol Sacubitril/Valsartan 1 tab 12/16/24 09:00 12/18/24 08:40 Sacubitril/Valsartan 24-26 Mg Tablet PO 1 tab Q12HR ANA Administration Sertraline HCl 50 mg 12/16/24 09:00 12/18/24 08:41 Sertraline Hcl 50 Mg Tablet PO 50 mg DAILY ANA Administration Vitamin D 1,000 units 12/16/24 09:00 12/18/24 08:40 Cholecalciferol 1,000 Units Tablet PO 1,000 units DAILY ANA Administration Radiology Results: ITS Impressions Wrist X-Ray 12/15/24 12:55 IMPRESSION: 1. Nondisplaced avulsion fractures of the ulnar styloid. 2. Age-indeterminate nondisplaced fracture of radial styloid. 3. Small bone fragment dorsal to the carpus on the lateral view, which may be an avulsion fracture of dorsal pole of triquetrum. 4. Polyarticular osteoarthritis. Head CT 12/15/24 17:34 Impression: No acute intracranial hemorrhage or suspicious mass effect. Chest X-Ray 12/17/24 06:21 Impression: Probable mild bibasilar pulmonary edema and minimal pleural effusions. Underlying COPD pattern. Labs Labs: Laboratory Results - last 24 hr 12/18/24 07:11 NT-Pro-B Natriuret Pep 651 H Quality VTE Prophylaxis VTE prophylaxis: pharmacologic ordered (Lovenox 40 mg subQ daily.)
[2024-12-18] MEDS: SPIRONOLACTONE 25 MG TABLET PO (11:07)
--- NOTE | 2024-12-18 11:25 | P.PNCA_ITS ---
Progress Note: A&P Assessment and Plan (1) Acute on chronic respiratory failure with hypoxia and hypercapnia: Code(s): J96.21 - Acute and chronic respiratory failure with hypoxia; J96.22 - Acute and chronic respiratory failure with hypercapnia Status: Acute Plan Acute on chronic heart failure with mildly reduced LVEF of 45-50% per TTE 08/29/2024 / nonischemic cardiomyopathy. Echocardiogram this admission with LVEF 50-55%. 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 Plan to shift to p.o. Lasix tomorrow. Will plan for Lasix 20mg once daily at home after discharge. -As for heart failure GDMT, continue Entresto, Jardiance, Toprol. Can consider addition of Spironolactone if there is blood pressure room. -Continue Flecainide and Toprol for her frequent PVCs -On antibiotics for possible pneumonia. Subjective Date/time seen: 12/18/24 11:25 Interval history: Cardiology follow up for CHF Date of service 12/18/2024: Feeling better today. Shortness of breath improving. No edema. Review of Systems Review of Systems: All systems reviewed & are unremarkable except as noted in HPI and below (HPI) Exam Const: General: no acute distress HENMT: Mouth: Yes moist mucous membranes Eyes: General: appearance normal, both eyes and all related structures Sclera: sclerae normal Resp: Effort & Inspection: normal respiratory effort Auscultation: crackles and wheezes Other: On supplemental oxygen Cardio: Rate: regular rate Rhythm: regular rhythm Heart sounds: no murmurs Other: No edema Neuro: Speech: normal speech Extrem: General: normal to inspection, no edema and no pedal edema Psych: Mental Status: mental status grossly normal Affect: normal affect Objective Data Vital Signs Vital Signs: Vital Signs - 24 hr 12/17/24 11:42 12/17/24 12:00 12/17/24 12:46 Temperature 36.8 C Pulse Rate 74 72 Respiratory Rate 18 Blood Pressure 115/45 L Pulse Oximetry 92 100 Oxygen Delivery High Flow Nasal Cannula Oxygen Flow Rate 2 Fraction of Inspired Oxygen 12/17/24 14:00 12/17/24 14:42 12/17/24 14:52 Temperature Pulse Rate 79 82 77 Respiratory Rate 20 20 Blood Pressure Pulse Oximetry Oxygen Delivery Oxygen Flow Rate Fraction of Inspired Oxygen 12/17/24 14:59 12/17/24 15:26 12/17/24 16:00 Temperature 37.2 C Pulse Rate 88 Respiratory Rate 25 H Blood Pressure 117/54 L Pulse Oximetry 95 Oxygen Delivery Nasal Cannula Nasal Cannula Oxygen Flow Rate 3 3 Fraction of Inspired Oxygen 12/17/24 16:00 12/17/24 16:00 12/17/24 18:00 Temperature Pulse Rate 87 85 Respiratory Rate Blood Pressure Pulse Oximetry 98 Oxygen Delivery High Flow Nasal Cannula Oxygen Flow Rate 1 Fraction of Inspired Oxygen 12/17/24 19:37 12/17/24 19:37 12/17/24 19:50 Temperature Pulse Rate 92 88 Respiratory Rate 20 20 Blood Pressure Pulse Oximetry 96 Oxygen Delivery High Flow Nasal Cannula Oxygen Flow Rate 2 Fraction of Inspired Oxygen 12/17/24 20:00 12/17/24 20:00 12/17/24 20:03 Temperature 36.8 C Pulse Rate 84 92 92 Respiratory Rate 18 18 Blood Pressure 117/51 L Pulse Oximetry 92 95 Oxygen Delivery Nasal Cannula Oxygen Flow Rate 2 Fraction of Inspired Oxygen 12/17/24 21:22 12/17/24 21:22 12/17/24 23:00 Temperature Pulse Rate 88 88 Respiratory Rate Blood Pressure Pulse Oximetry 94 Oxygen Delivery Nasal Cannula Oxygen Flow Rate 1 Fraction of Inspired Oxygen 24 12/17/24 23:56 12/18/24 00:00 12/18/24 04:00 Temperature Pulse Rate 60 61 60 Respiratory Rate Blood Pressure Pulse Oximetry 94 Oxygen Delivery Oxygen Flow Rate Fraction of Inspired Oxygen 12/18/24 06:00 12/18/24 07:45 12/18/24 08:40 Temperature 36.4 C Pulse Rate 57 L 70 80 Respiratory Rate 20 Blood Pressure 123/48 L Pulse Oximetry 93 Oxygen Delivery Oxygen Flow Rate Fraction of Inspired Oxygen 12/18/24 09:03 12/18/24 09:04 12/18/24 09:17 Temperature Pulse Rate 77 75 Respiratory Rate 20 20 Blood Pressure Pulse Oximetry 89 L Oxygen Delivery Nasal Cannula Oxygen Flow Rate 1 Fraction of Inspired Oxygen 12/18/24 11:08 Temperature Pulse Rate Respiratory Rate Blood Pressure 103/54 L Pulse Oximetry Oxygen Delivery Oxygen Flow Rate Fraction of Inspired Oxygen Intake/Output Intake/Output: Intake & Output 12/15/24 12/16/24 12/17/24 12/18/24 23:59 23:59 23:59 23:59 Intake Total 690 1760 1100 420 Output Total 4290 7845 475 Balance -960 285 625 420 Meds/Results Medications: Active Medications Generic Name Dose Route Start Last Admin Trade Name Freq PRN Reason Stop Dose Admin Acetaminophen 650 mg 12/15/24 15:19 12/17/24 21:23 Acetaminophen 325 Mg Tablet PO 650 mg Q4H PRN Administration Mild Pain (1-3) or Fever Hydrocodone Bitart/Acetaminophen 1 tab 12/15/24 22:01 Hydrocodone/Acetaminophen (*Crx) 5-325 Mg Tablet PO Q6H PRN Pain Rated 7-10 Albuterol/Ipratropium 3 ml 12/16/24 02:00 12/18/24 09:01 Ipratropium 0.5 Mg/Albuterol Sulfate 2.5 Mg Ampul.Neb 3 Ml INHALATION 3 ml Q6HRT ANA Administration Alprazolam 0.25 mg 12/15/24 22:01 12/15/24 22:22 Alprazolam (*Crx) 0.25 Mg Tablet PO 0.25 mg TID PRN Administration anxiety Azithromycin 500 mg 12/17/24 21:00 12/17/24 21:21 Azithromycin 250 Mg Tablet PO 12/19/24 21:01 500 mg QHS ANA Administration Diclofenac Sodium 50 mg 12/15/24 23:14 Diclofenac Sod 25 Mg Tablet.Ec PO Q12H PRN pain 4-6 Empagliflozin 10 mg 12/16/24 09:00 12/18/24 08:40 Empagliflozin 10 Mg Tablet PO 10 mg DAILY ANA Administration Enoxaparin Sodium 40 mg 12/16/24 09:00 12/18/24 09:32 Enoxaparin 40 Mg/0.4 Ml Syringe SUB-Q 40 mg DAILY ANA Administration Famotidine 40 mg 12/15/24 22:05 12/17/24 21:21 Famotidine 20 Mg Tablet PO 40 mg QHS ANA Administration Fentanyl 25 mcg 12/17/24 09:55 12/17/24 10:50 Fentanyl (*Crx) 25 Mcg Patch TRANSDERM 25 mcg Q72HR ANA Administration Flecainide Acetate 100 mg 12/16/24 09:00 12/18/24 08:40 Flecainide Acetate 100 Mg Tablet PO 100 mg Q12HR ANA Administration Furosemide 40 mg 12/16/24 09:00 12/18/24 08:40 Furosemide Inj 40 Mg/4 Ml Vial IV PUSH 40 mg DAILY ANA Administration Gabapentin 300 mg 12/16/24 09:00 12/18/24 08:42 Gabapentin 300 Mg Capsule PO 300 mg BID ANA Administration Cefepime HCl 2 gm in 50 mls @ 100 mls/hr 12/15/24 21:00 12/18/24 08:38 Maxipime 2 Gm/Ns 50 Ml IVPB 100 mls/hr Q12HR ANA Administration Lidocaine 1 patch 12/16/24 09:00 12/18/24 08:42 Lidocaine 5% Patch TRANSDERM 1 patch DAILY ANA Administration Magnesium Oxide 200 mg 12/16/24 09:00 12/18/24 08:40 Magnesium Oxide 200 Mg Tablet PO 200 mg DAILY ANA Administration Metoprolol Succinate 25 mg 12/16/24 21:00 12/17/24 21:22 Metoprolol Succinate Ext Rel 25 Mg Tabcr PO 25 mg QHS ANA Administration Mirtazapine 7.5 mg 12/15/24 22:05 12/17/24 21:23 Mirtazapine 7.5 Mg Tablet PO 7.5 mg QHS ANA Administration Multivitamins Therapeutic 1 tablet 12/16/24 09:00 12/18/24 08:40 Multivitamins Therapeutic Tab (*Bkc) PO 1 tablet DAILY ANA Administration Ondansetron HCl 4 mg 12/15/24 15:19 Ondansetron Inj 4 Mg/2 Ml Vial IV PUSH Q4H PRN Nausea Perflutren Lipid Microsphere 0 ml 12/16/24 15:34 Perflutren Lipid Microspheres 1.5 Ml Vial Diluted To 10 Ml Total Volume IV PUSH 12/19/24 15:34 ONCE PRN adequate visualization Protocol Sacubitril/Valsartan 1 tab 12/16/24 09:00 12/18/24 08:40 Sacubitril/Valsartan 24-26 Mg Tablet PO 1 tab Q12HR ANA Administration Sertraline HCl 50 mg 12/16/24 09:00 12/18/24 08:41 Sertraline Hcl 50 Mg Tablet PO 50 mg DAILY ANA Administration Spironolactone 25 mg 12/18/24 11:00 12/18/24 11:07 Spironolactone 25 Mg Tablet PO 25 mg QAM [facility] Administration Vitamin D 1,000 units 12/16/24 09:00 12/18/24 08:40 Cholecalciferol 1,000 Units Tablet PO 1,000 units DAILY ANA Administration Radiology Results: ITS Impressions Wrist X-Ray 12/15/24 12:55 IMPRESSION: 1. Nondisplaced avulsion fractures of the ulnar styloid. 2. Age-indeterminate nondisplaced fracture of radial styloid. 3. Small bone fragment dorsal to the carpus on the lateral view, which may be an avulsion fracture of dorsal pole of triquetrum. 4. Polyarticular osteoarthritis. Head CT 12/15/24 17:34 Impression: No acute intracranial hemorrhage or suspicious mass effect. Chest X-Ray 12/17/24 06:21 Impression: Probable mild bibasilar pulmonary edema and minimal pleural effusions. Underlying COPD pattern. Labs Labs: Laboratory Results - last 24 hr 12/18/24 07:11 NT-Pro-B Natriuret Pep 651 H Quality VTE Prophylaxis VTE prophylaxis: pharmacologic ordered (Lovenox 40 mg subQ daily.)
[2024-12-18 12:11] LABS: Alveolar/Arterial O2 Gradient 37.2 mmHg; Base Excess ABG 12.7 mEq/l (+/-2.0); Fractional Inspired Oxygen 24 %; Oxygen Content ABG 15.9 %vol (16.0-22.0); Oxyhemoglobin 91.7 % THb (90.0-100.0); PCO2 ABG 57.9 mmHg (35.0-45.0); PO2 FiO2 Ratio Arterial Blood 2.71 %; Total Hemoglobin 12.3 g/dL (12.0-18.0); pH ABG 7.446 (7.350-7.450)
--- NOTE | 2024-12-18 12:12 | PC.NURSE ---
On 12/18/24, the student, [Nika Chau], provided care and completed [facility] documentation on this patient. I have reviewed the student's documentation and agree with the findings.
[2024-12-18 12:14] LABS: Device NASAL CANNULA; Site Drawn LEFT BRACHIAL
--- NOTE | 2024-12-18 14:15 | PC.NURSE ---
On 12/18/24, the student, [Alena Raygoza], provided care and completed [facility] documentation on this patient. I have reviewed the student's documentation and agree with the findings.
[2024-12-18 14:19] LABS: Pneumococcal Antigen Urine NOT DETECTED
[2024-12-18] MEDS: FAMOTIDINE 20 MG TABLET 40 MG PO (20:41)
[2024-12-18] MEDS: METOPROLOL SUCCINATE EXT REL 25 MG TABCR PO (20:41)
[2024-12-18] MEDS: MIRTAZAPINE 7.5 MG TABLET PO (20:42)
[2024-12-18] MEDS: AZITHROMYCIN 250 MG TABLET 500 MG PO (20:42)
[2024-12-19] VITALS (28 sets, daily range): BP systolic 122–133; BP diastolic 48–56; PULSE 65–80; RESP 16–20; TEMP 36.4–36.9; O2SAT 85–98
[2024-12-19 07:09] LABS: Hematocrit 35.6 % (37.0-47.0); Hemoglobin 10.7 g/dL (12.0-15.0); Mean Corpuscular HGB Conc 30.1 g/dl (32-36); Mean Corpuscular Hemoglobin 28.9 pg (26-34); Mean Corpuscular Volume 96.2 fl (80-100); Mean Platelet Volume 9.6 fl (7.4-10.4); Platelet Count Result 194 k/mm3 (150-375); Red Cell Distribution Width 14.4 % (11.5-14.5); White Blood Count 5.2 K/mm3 (4.5-10.0)
[2024-12-19 07:29] LABS: Blood Urea Nitrogen 17 mg/dL (7-17); Calcium 8.2 mg/dL (8.4-10.2); Carbon Dioxide > 40 mmol/L (22-30); Chloride 93 mmol/L (98-107); Estimated CRCL calculation 54 ml/min; Estimated Glomerular Filt Rate > 60; Glucose 89 mg/dL (65-110); Potassium 4.1 mmol/L (3.4-5.0); Sodium 134 mmol/L (137-145)
[2024-12-19] MEDS: IPRATROPIUM 0.5 MG/ALBUTEROL SULFATE 2.5 MG AMPUL.NEB 3 ML INHALATION ×3 (08:51→20:33)
--- NOTE | 2024-12-19 09:36 | PC.NURSE ---
On 12/19/24, the student, [Nika Chau], provided care and completed [facility] documentation on this patient. I have reviewed the student's documentation and agree with the findings.
[2024-12-19] MEDS: LIDOCAINE 5% PATCH 1 PATCH TRANSDERM (09:39)
[2024-12-19] MEDS: CEFEPIME 2 GM/NS 50 ML 2 GM/50 ML BAG IVPB ×2 (09:39→20:49)
[2024-12-19] MEDS: ENOXAPARIN 40 MG/0.4 ML SYRINGE SUB-Q (09:39)
[2024-12-19] MEDS: CHOLECALCIFEROL 1,000 UNITS TABLET 1000 UNITS PO (09:40)
[2024-12-19] MEDS: FLECAINIDE ACETATE 100 MG TABLET PO ×2 (09:40→20:50)
[2024-12-19] MEDS: MULTIVITAMINS THERAPEUTIC TAB (*BKC) 1 TABLET PO (09:41)
[2024-12-19] MEDS: SACUBITRIL/VALSARTAN 24-26 MG TABLET 1 TAB PO ×2 (09:41→20:51)
[2024-12-19] MEDS: EMPAGLIFLOZIN 10 MG TABLET PO (09:41)
[2024-12-19] MEDS: SPIRONOLACTONE 25 MG TABLET PO (09:41)
[2024-12-19] MEDS: SERTRALINE HCL 50 MG TABLET PO (09:41)
[2024-12-19] MEDS: GABAPENTIN 300 MG CAPSULE PO ×2 (09:41→16:35)
[2024-12-19] MEDS: FUROSEMIDE INJ 40 MG/4 ML VIAL IV PUSH (09:41)
[2024-12-19] MEDS: MAGNESIUM OXIDE 200 MG TABLET PO (09:41)
--- NOTE | 2024-12-19 12:17 | P.PNPL_ITS ---
Progress Note: A&P Assessment and Plan (1) Acute on chronic respiratory failure with hypoxia and hypercapnia: Code(s): J96.21 - Acute and chronic respiratory failure with hypoxia; J96.22 - Acute and chronic respiratory failure with hypercapnia Status: Acute Assessment and Plan: Patient has chronic hypoxemic respiratory failure and was discharged in September of 2024 after she had influenza with no oxygen at rest and 2 with activity. More recently she has required 2 L at rest, 2 L with activity and 1 L with sleep. Recently admitted to [facility] on 12/04/2024 through 12/06/2024 for COPD exacerbation and discharged on azithromycin and methylprednisolone. Blood gas on 12/04/2024 of 7.31/59/57 on room air. 7 hours later BiPAP blood gas 7.31/51/139 on BiPAP 12/6 and 45% FiO2. Currently patient admitted to the hospital with shortness of breath and improved now back to baseline. 12/19/24 patient had an ABG on 1 L off of BiPAP for greater than 24 hours with a pH of 7.45/58/61. Patient has chronic hypercarbic respiratory failure from her COPD and would benefit from noninvasive ventilation to prevent disease progression and further hospitalizations. 12/15/2024: Patient presented to the emergency department with shortness of breath and altered mental status Related to fentanyl patch, fluid overload, and possible bronchitis-pneumonia with ABG on BiPAP 12/6 30% was 7.29/78 / less than 27. Etiology of acute on chronic respiratory failure with hypoxia and hypercarbia includes: Fluid overload, COPD, bronchiectasis, narcotic use, and possible respiratory infection. Plan: patient tells me that she had a very difficult time wearing the BiPAP because the pressures were high and she had to take the machine off and she cannot rest with this per mode. Currently patient is on 1 L nasal cannula saturations 92-94%. Goal saturation 90-94%. I will check an overnight oximetry tonight on 1 L nasal cannula to assess for nocturnal hypoxemia. Currently the patient is awake and mentating. I will discontinue the BiPAP tonight and place her on 1 L nasal cannula oxygen and check a blood gas at off of BiPAP for 24 hours tomorrow morning. Regarding her bronchiectasis the patient has a compression fracture in her back and up pathologic rib fracture and will discontinue vest therapy at this time. Will continue Cornet flutter valve, nebulized bronchodilators to aid in sputum expectoration. Patient states she is not having trouble expectorating and I will not start guaifenesin. 12/19/2023: Overall the patient is improved but she still has increased dyspnea on exertion, increased dry cough. Patient slept well on 1 L nasal cannula. States her pain is well controlled. Patient had an overnight oximetry on 1 L with recording duration of 6 hours and 42 minutes. Average saturation 92%. Low saturation 78%. Time with saturation less than or equal to 88% was 49 minutes. Oxygen desaturation index 0.9. Patient is walking in the halls with physical therapy and had desaturations on 3 L. cumulative she is positive 200 mL since admission. Weight today is 66 kg. Continues on Lasix 40 IV q.day. plan: Patient is not having any phlegm production which is new for her. She has use she makes per phlegm every day. Patient has been off of BiPAP for 24 hours and will obtain ABG to assess for hypercarbic respiratory failure. Will perform overnight oximetry on 2 L tonight. if she remains clinically stable possible discharge on 12/19/2024. later in the day patient had an ABG on 1 L off of BiPAP for greater than 24 hours with a pH of 7.45/58/61. 12/20/2023: Patient tells me she is much much better. Overall she feels she is breathing back at her baseline. She has minimal shortness of breath but some unsteadiness with ambulation. She did ambulate 600 ft with 2 L nasal cannula. She denies cough, phlegm, hemoptysis or wheezing. Overall she says she slept well on 2 L nasal cannula. She did say that her oxygen came off twice during the night. Overnight oximetry on 2 L with recording duration of 7 hours and 37 minutes, average saturation 94%. Low saturation 75%, time with saturation less than or equal to 88% was 48 minutes. Oxygen desaturation index 3.9. Plan: Patient has chronic hypercarbic respiratory failure from her COPD and would benefit from noninvasive ventilation. I spoke with her community relations police lieutenant, Dr. Flynn, and I will initiate home noninvasive ventilation through [employer] (her DME). Discussed with Dr. Gaitan. Will follow with you. (2) CHF (congestive heart failure): Qualifiers: Heart failure chronicity: acute on chronic Heart failure type: combined systolic and diastolic Qualified Code(s): I50.43 - Acute on chronic combined systolic (congestive) and diastolic (congestive) heart failure Code(s): I50.9 - Heart failure, unspecified Status: Acute Assessment and Plan: 12/17/24: Patient presents with worsening shortness of breath, worsening hypoxia, chest x-ray with congestion, BNP 3230. Patient has been treated with IV Lasix and she is clinically improved and her edema has decreased. Plan: Patient has made a rather quick recovery and I suspect the majority of her problem was related to fluid overload. Agree with diuresis as tolerated by her cardiac and renal systems per Cardiology and the hospitalist team. Currently she is on Lasix 40 IV q.day. her weight today is 65.8 with an admission weight of 65 kg. Of note her discharge weight on 12/10/2024 was 60.5 kg. Later in the day echocardiogram with EF 55-60, grade 1 diastolic dysfunction, normal RV size and function, moderately enlarged right atrium, PASP 39. 12/18/2024: BNP improved to 651. Plan: Agree with as aggressive diuresis as tolerated by cardiac and renal system per Cardiology and hospitalist team. Currently she is on Lasix 40 IV q.day. 12/19/2024: Patient is breathing back at her baseline. She was +768 mL yesterday, cumulative she has +268 since admission. Her weight today is 66 kg with an admission weight of 65. Plan: Cardiology following his decreased her Lasix to 20 mg p.o. q.day. continue Entresto 24-26 and 1 tablet q.12 hours. Continue metoprolol 25 q.h.s.. Continue flecainide 100 mg p.o. q.12 hours. Continue spironolactone 25 q.a.m.. (3) Chronic obstructive pulmonary disease, unspecified: Code(s): J44.9 - Chronic obstructive pulmonary disease, unspecified Status: Acute Assessment and Plan: Patient has remote tobacco use, carries a diagnosis of COPD by her current community relations police lieutenant and is maintained on Anoro Ellipta at 1 puff q.day and rescue albuterol DuoNebs which she takes 1 time a week. 12/17/2024: Currently the patient has no wheezing, no change in her phlegm volume or production and no cough. I do not think she has a COPD exacerbation. Plan: I will continue DuoNebs q.6 hours at this time. I will discontinue her Anoro Ellipta as she is on maximal beta agonist and muscarinic antagonists with the DuoNebs. I see no need for inhaled steroids or systemic steroids at this time. Goal saturation 90-94%. Wean oxygen accordingly. Patient may have a pneumonia or bronchitis and she has improved and I will contnue cefepime and azithromycin both day 3. 12/18/2024: White blood cell count 10.0, creatinine 0.83. she has squeaks and crackles in her lower lobes. no wheezing today. 1 L nasal cannula saturations 93%. Plan: Continue DuoNebs q.6 hours. Goal saturation 90-94%. she will need home O2 assessment prior to discharge. 12/19/24: Patient states she is breathing back to her baseline. She is afebrile. White blood cell count 5.2. No wheezing on exam. Plan: Continue albuterol and ipratropium nebulizers q.6 hours. Continue cefepime, day 5. Continue azithromycin, day 5 and will discontinue after today's dose. Home O2 assessment on the day of discharge. Subjective Date/time seen: 12/19/24 12:17 Interval history: 12/17/2024: This is a new pulmonary consult for acute on chronic hypoxemic and hypercarbic respiratory failure. 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 metastatic breast cancer with chronic pain, and HTN. Patient follows with community relations police lieutenant Dr. Flynn, [facility] for the last 6 years. Patient has a follow-up appointment on 12/24/2024 with him. regarding her COPD she is maintained on Anoro Ellipta and rescue DuoNebs which she uses approximately 1 time a week. The patient was admitted to [facility] in September of 2024 with influenza. She was admitted for 5 days and on discharge she was told she needed no oxygen at rest and 2 L with activity. 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 She had a left-sided lumpectomy 01/30/2024 patient refused radiation therapy and endocrine therapy. Patient refused radiation therapy and refused endocrine therapy. PET scan 12/10/2024 showed avid lymph nodes left axilla, avid lesion left 5th rib, right scapula and the patient was to start Ibrance and anastrozole to start monthly Xgeva. If pain does not get any better then we will consider radiation oncology consultation or even kyphoplasty. 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 01/13/2022 sputum with Pseudomonas aeruginosa and fluorescens. 03/02/2021 sputum with GLORIA. 02/24/2021 sputum with GLORIA. patient was referred to [facility] and followed with them and perform serial sputums and the patient and family were told she did not have active infection and needed no treatment. She was last seen by them and 2021. After she was discharged in September of 2024 from influenza a she has never fully recovered back to her PD pre influenza state. She has required more oxygen and typically has been using 1 L during the day. Recently admitted to [facility] on 12/04/2024 through 12/06/2024 for COPD exacerbation and discharged on azithromycin and methylprednisolone. Blood gas on 12/04/2024 of 7.31/59/57 on room air. 7 hours later BiPAP blood gas 7.31/51/139 on BiPAP 12/6 and 45% FiO2. Patient completed her medications and was feeling better. She continued to have back pain and Fentanyl patch was started by PCP. On 12/08/2024 the patient developed worsening shortness of breath, leg swelling, increased oxygen requirements of 2 L at rest, 2 L with activity and 1 L at night. She denied any change in her cough or change in her chronic phlegm production. The PET no patch helped her pain go from a 8/10 to a 5 to 6/10. A on 12/11/2024 her fentanyl patch was increased to 37.5 and on 12/13 the patient had altered mental status with falling asleep and hallucinations. On 12/14/2024 the patient was weak, had shortness of breath and required 3 L oxygen but had no change in her cough or phlegm volume or change in color of her phlegm. On 12/15 in the morning the patient was lethargic and brought to the emergency department. 12/15/2024: Patient presented to the emergency department with shortness of breath and altered mental status. She finished her azithromycin on 11/13/2024 and her DuoNebs were also discontinued at that time. She is on narcotics for pa in Patient was hypoxic at her facility and sent to the emergency department. She was A&O x2, chronically ill-appearing. Clear to auscultation. Afebrile. Blood pressure 161/84, heart rate 77, respirations 14. Patient was placed on BiPAP. White blood cell count 13.8, creatinine 0.62, eosinophils 0.3%. BNP 3230. ABG on BiPAP 12/6 30% was 7.29/78 / less than 27. chest x-ray with bibasilar interstitial infiltrates right lower lobe greater than left, pulmonary vascular redistribution, infiltrates and tenting of the right pleural space is new since 12/03/2024. Patient had radial and ulnar styloid fractures. her BiPAP rate was increased to 20, she was given IV Lasix, she was started on cefepime and vancomycin for possible healthcare associated pneumonia. Fentanyl was decreased. patient with a temperature of 38.4? at 4:00 p.m.. On 12/17/2023 shortness of breath is better today. She had nonproductive cough. No chest pain but pleuritic left posterior shoulder pain. weaned off BiPAP and now on 6 L. fluid status better with Lasix. Fever curve better. white blood cell count 10.0. ABG at 5 in the morning on BiPAP 12/6 and 30% with pH 7.37/67/66 12/18/2023: Vancomycin discontinued. Continue azithromycin for atypical coverage. Patient is afebrile since 12/15/2024. Procalcitonin 0.3, blood cultures negative. Chest x-ray with improved bibasilar interstitial alveolar infiltrates compared to 12/15/2024. Currently the patient Tells me that her breathing, cough, phlegm volume and phlegm color are much improved and a are the same as her baseline after influenza a infection. she was on room air during the day earlier but when she ambulated she had desaturations into the 70s and was placed on 3 L. When I enter the room she was on 3 L nasal cannula with saturations 95%. I decreased her to room air and after 7 minutes her saturations were 88% and I placed her back on 1 L and her saturations remain 92-94%. white blood cell count10.0, Cr 0.83, Weight is 65.8 with an admission weight of 65.0. Of note, weight was 60 point 5 kg on discharge on 12/10/2024. since admission she is -440 mL. Later in the day echocardiogram with EF 55-60, grade 1 diastolic dysfunction, normal RV size and function, moderately enlarged right atrium, PASP 39. 12/19/2023: Overall the patient is improved but she still has increased dyspnea on exertion, increased dry cough. Patient slept well on 1 L nasal cannula. White blood cell count 10.0, creatinine 0.83 BNP improved to 651. Patient had an overnight oximetry on 1 L with recording duration of 6 hours and 42 minutes. Average saturation 92%. Low saturation 78%. Time with saturation less than or equal to 88% was 49 minutes. Oxygen desaturation index 0.9. Patient is walking in the halls with physical therapy and had desaturations on 3 L. cumulative she is positive 200 mL since admission. Weight today is 66 kg. Continues on Lasix 40 IV q.day. later in the day patient had an ABG on 1 L off of BiPAP for greater than 24 hours with a pH of 7.45/58/61. 12/20/2023: Patient tells me she is much much better. Overall she feels she is breathing back at her baseline. She has minimal shortness of breath but some unsteadiness with ambulation. She did ambulate 600 ft with 2 L nasal cannula. She denies cough, phlegm, hemoptysis or wheezing. Overall she says she slept well on 2 L nasal cannula. She did say that her oxygen came off twice during the night. Overnight oximetry on 2 L with recording duration of 7 hours and 37 minutes, average saturation 94%. Low saturation 75%, time with saturation less than or equal to 88% was 48 minutes. Oxygen desaturation index 3.9. DATA: 12/17/24: Summary 1. Left ventricular chamber dimension is normal. 2. Left ventricular systolic function is normal, estimated at 50-55%. 3. There is mildly increased left ventricular wall thickness. 4. Left ventricular septal wall motion is abnormal with septal motion related to bundle branch block. 5. The left ventricular diastolic function is grade I diastolic dysfunction. 6. Right ventricular systolic function is normal. 7. Left atrial chamber dimension is moderately enlarged. 8. Right atrial chamber dimension is moderately enlarged. 9. There is mild mitral valve regurgitation. 10. There is mild tricuspid valve regurgitation. 11. Estimated pulmonary arterial systolic pressure is 39 mmHg. 12. Normal inferior vena cava with >50% collapse upon inspiration consistent with normal right atrial pressure, 3 mmHg. Right Ventricle Right ventricular chamber dimension is normal. Right ventricular systolic function is normal. Right Atria Right atrial chamber dimension is moderately enlarged. Atrial Septum Intact interatrial septum visualized by color flow imaging. 12/03/2024: CLINICAL INDICATION: Shortness of breath and hypoxia. Personal history of breast cancer COMPARISON: None. Reference is made to a plain film evaluation of the thoracic spine dated 11/04/2024 and a PA and lateral radiograph of the chest dated 08/24/2024. FINDINGS/OBSERVATIONS: LUNG:Cylindrical and varicose bronchiectasis is identified within the bilateral lung johnson. No discrete consolidation, noncalcified pulmonary nodules or discrete lung mass is identified. Interstitial thickening is noted with a calcified nodule in the right axilla lower lobe suggesting prior granulomatous disease. HEART: The heart is of normal size, without pericardial effusion. MEDIASTINUM: Interval development of multiple lymph nodes within the mediastinum. Calcified lymph nodes within the right hilum, likely corresponding to the appearance on plain film evaluation. No pathologically enlarged or morphologically suspicious lymph nodes are identified within the right axilla, or within the soft tissues of the anterior chest wall. Redemonstration of the pathologically enlarged lymph node within the left axilla, consistent with patient's history.. SOFT TISSUES OF THE CHEST: Unremarkable. BONES OF THE CHEST: No acute fracture. No lytic or blastic lesions are identified. Anterior wedge compression of the the T6 vertebral body is redemonstrated, unchanged from 11/04/2024 plain film evaluation, but an interval change from plain film evaluation dated 08/24/2024. Given the increased attenuation within the T6 vertebral body, a pathologic fracture cannot be excluded. UPPER ABDOMEN: Limited evaluation without intravenous contrast. IMPRESSION: Redemonstration of the T6 vertebral body fracture which also demonstrates increased attenuation for which a pathologic fracture cannot be excluded. Interval development of the mediastinal lymphadenopathy, corresponding to the abnormality seen on plain film radiograph. Cylindrical and varicose bronchiectasis is also noted. 11/20/24: A. Left axillary lymph node, needle biopsy: - Metastatic adenocarcinoma consistent with history of breast primary B. Left axillary scar lesion, needle biopsy: - Metastatic adenocarcinoma consistent with history of breast primary 12/24/2020: CT scan report from [facility]. Clinical history: GLORIA complex. Comparison 02/25/2018. Fibro atelectasis in the right middle lobe and lingula unchanged. Bilateral bronchiectasis, most notable in the anterior lung zones unchanged. Cystic bronchiectasis in the superior segment of the right lower lobe again identified. Associated mucus plugging and bronchial wall thickening again identified. Bilateral scattered tree-in-bud opacifications are grossly unchanged. Calcified granuloma. No suspicious lung mass or consolidation. Biapical pleural parenchymal scarring. 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 Associated pleural thickening versus atelectasis. Small pulmonary on pulmonary nodules in these areas are not excluded Bronchiectasis, emphysematous change, and likely mucous plugging and multiple bronchi is noted. Subtle pulmonary nodules or endobronchial lesions are not excluded. Continued follow-up is recommended for surveillance. Follow-up in 3 months is recommended. Mild pleural thickening and/or consolidation in the right middle lobe and lingula. Review of Systems Constitutional: Constitutional: Reports no additional constitutional complaints Eyes: Eyes: Reports no additional eye complaints ENT: Reports system reviewed and no additional complaints, except as documented Cardiovascular: Cardiovascular: Reports no additional cardiovascular complaints Respiratory: Respiratory: Reports no additional respiratory complaints Gastrointestinal: Gastrointestinal: Reports no additional gastrointestinal complaints Musculoskeletal: Musculoskeletal: Reports no additional musculoskeletal complaints Neurologic: Reports system reviewed and no additional complaints, except as documented Psychiatric: Psychiatric: Reports no additional psychiatric complaints Endocrine: Endocrine: Reports no additional endocrine complaints Hematologic/Lymphatic: Hematologic/Lymphatic: Reports no additional hematologic/lymphatic complaints Allergic/Immunologic: Allergic/Immunologic: Reports no additional allergic/immunologic complaints Exam Const: General: cooperative, healthy appearing and comfortable Orientation/consciousness: oriented to person, oriented to place and oriented to time HENMT: Head: normal to inspection Ears: hearing grossly normal bilaterally Eyes: General: appearance normal, both eyes and all related structures Neck: Neck: normal visual inspection Chest: Chest palpation & inspection: normal inspection of the chest Resp: Effort & Inspection: normal respiratory effort and able to speak in complete sentences Auscultation: crackles, no rales, no rhonchi, no wheezes and lung sounds not diminished Other: minimal at bases Cardio: Jugular venous distension: no JVD GI: Inspection: normal to inspection Skin: General skin exam: normal color Neuro: General: oriented to person, oriented to place and oriented to time Extrem: General: normal to inspection and edema Other: Trace edema and improved per the patient. Psych: Appearance: grossly normal Objective Data Vital Signs Vital Signs: Vital Signs - 24 hr 12/18/24 14:00 12/18/24 14:06 12/18/24 14:17 Temperature Pulse Rate 72 80 73 Respiratory Rate 20 20 Blood Pressure Pulse Oximetry Oxygen Delivery Oxygen Flow Rate 12/18/24 15:32 12/18/24 16:00 12/18/24 18:00 Temperature 36.7 C Pulse Rate 66 89 75 Respiratory Rate 20 Blood Pressure 102/41 L Pulse Oximetry 96 Oxygen Delivery Oxygen Flow Rate 12/18/24 19:35 12/18/24 20:36 12/18/24 20:36 Temperature Pulse Rate 74 78 78 Respiratory Rate 20 20 Blood Pressure Pulse Oximetry 94 Oxygen Delivery Nasal Cannula Oxygen Flow Rate 2 12/18/24 20:41 12/18/24 20:41 12/18/24 22:00 Temperature Pulse Rate 68 68 65 Respiratory Rate 20 Blood Pressure Pulse Oximetry 96 Oxygen Delivery Nasal Cannula Oxygen Flow Rate 2 12/18/24 22:00 12/18/24 22:30 12/18/24 23:00 Temperature 36.9 C Pulse Rate 65 74 Respiratory Rate 18 Blood Pressure 141/68 H Pulse Oximetry 94 95 Oxygen Delivery Nasal Cannula Oxygen Flow Rate 2 12/19/24 00:00 12/19/24 02:00 12/19/24 04:00 Temperature Pulse Rate 74 66 65 Respiratory Rate Blood Pressure Pulse Oximetry Oxygen Delivery Oxygen Flow Rate 12/19/24 07:38 12/19/24 07:40 12/19/24 08:00 Temperature 36.4 C Pulse Rate 69 72 Respiratory Rate 20 Blood Pressure 122/56 L Pulse Oximetry 98 94 98 Oxygen Delivery High Flow Therapy with Na Nasal Cannula Oxygen Flow Rate 2 2 12/19/24 08:00 12/19/24 08:51 12/19/24 08:51 Temperature Pulse Rate 76 68 Respiratory Rate 20 Blood Pressure Pulse Oximetry 94 Oxygen Delivery Nasal Cannula Oxygen Flow Rate 2 12/19/24 09:01 12/19/24 09:40 12/19/24 10:00 Temperature Pulse Rate 74 78 71 Respiratory Rate 20 Blood Pressure Pulse Oximetry Oxygen Delivery Oxygen Flow Rate 12/19/24 12:00 Temperature Pulse Rate 75 Respiratory Rate Blood Pressure Pulse Oximetry Oxygen Delivery Oxygen Flow Rate Intake/Output Intake/Output: Intake & Output 12/16/24 12/17/24 12/18/24 12/19/24 23:59 23:59 23:59 23:59 Intake Total 1760 1100 1790 270 Output Total 5226 245 9345 2150 Balance 285 882 426 -5244 Meds/Results Medications: Active Medications Generic Name Dose Route Start Last Admin Trade Name Freq PRN Reason Stop Dose Admin Acetaminophen 650 mg 12/15/24 15:19 12/17/24 21:23 Acetaminophen 325 Mg Tablet PO 650 mg Q4H PRN Administration Mild Pain (1-3) or Fever Hydrocodone Bitart/Acetaminophen 1 tab 12/15/24 22:01 Hydrocodone/Acetaminophen (*Crx) 5-325 Mg Tablet PO Q6H PRN Pain Rated 7-10 Albuterol/Ipratropium 3 ml 12/16/24 02:00 12/19/24 08:51 Ipratropium 0.5 Mg/Albuterol Sulfate 2.5 Mg Ampul.Neb 3 Ml INHALATION 3 ml Q6HRT ANA Administration Alprazolam 0.25 mg 12/15/24 22:01 12/15/24 22:22 Alprazolam (*Crx) 0.25 Mg Tablet PO 0.25 mg TID PRN Administration anxiety Azithromycin 500 mg 12/17/24 21:00 12/18/24 20:42 Azithromycin 250 Mg Tablet PO 12/19/24 21:01 500 mg QHS ANA Administration Diclofenac Sodium 50 mg 12/15/24 23:14 Diclofenac Sod 25 Mg Tablet.Ec PO Q12H PRN pain 4-6 Empagliflozin 10 mg 12/16/24 09:00 12/19/24 09:41 Empagliflozin 10 Mg Tablet PO 10 mg DAILY ANA Administration Enoxaparin Sodium 40 mg 12/16/24 09:00 12/19/24 09:39 Enoxaparin 40 Mg/0.4 Ml Syringe SUB-Q 40 mg DAILY ANA Administration Famotidine 40 mg 12/15/24 22:05 12/18/24 20:41 Famotidine 20 Mg Tablet PO 40 mg QHS ANA Administration Fentanyl 25 mcg 12/17/24 09:55 12/17/24 10:50 Fentanyl (*Crx) 25 Mcg Patch TRANSDERM 25 mcg Q72HR ANA Administration Flecainide Acetate 100 mg 12/16/24 09:00 12/19/24 09:40 Flecainide Acetate 100 Mg Tablet PO 100 mg Q12HR ANA Administration Gabapentin 300 mg 12/16/24 09:00 12/19/24 09:41 Gabapentin 300 Mg Capsule PO 300 mg BID ANA Administration Cefepime HCl 2 gm in 50 mls @ 100 mls/hr 12/15/24 21:00 12/19/24 09:39 Maxipime 2 Gm/Ns 50 Ml IVPB 100 mls/hr Q12HR ANA Administration Lidocaine 1 patch 12/16/24 09:00 12/19/24 09:39 Lidocaine 5% Patch TRANSDERM 1 patch DAILY ANA Administration Magnesium Oxide 200 mg 12/16/24 09:00 12/19/24 09:41 Magnesium Oxide 200 Mg Tablet PO 200 mg DAILY ANA Administration Metoprolol Succinate 25 mg 12/16/24 21:00 12/18/24 20:41 Metoprolol Succinate Ext Rel 25 Mg Tabcr PO 25 mg QHS ANA Administration Mirtazapine 7.5 mg 12/15/24 22:05 12/18/24 20:42 Mirtazapine 7.5 Mg Tablet PO 7.5 mg QHS ANA Administration Multivitamins Therapeutic 1 tablet 12/16/24 09:00 12/19/24 09:41 Multivitamins Therapeutic Tab (*Bkc) PO 1 tablet DAILY ANA Administration Ondansetron HCl 4 mg 12/15/24 15:19 Ondansetron Inj 4 Mg/2 Ml Vial IV PUSH Q4H PRN Nausea Perflutren Lipid Microsphere 0 ml 12/16/24 15:34 Perflutren Lipid Microspheres 1.5 Ml Vial Diluted To 10 Ml Total Volume IV PUSH 12/19/24 15:34 ONCE PRN adequate visualization Protocol Sacubitril/Valsartan 1 tab 12/16/24 09:00 12/19/24 09:41 Sacubitril/Valsartan 24-26 Mg Tablet PO 1 tab Q12HR ANA Administration Sertraline HCl 50 mg 12/16/24 09:00 12/19/24 09:41 Sertraline Hcl 50 Mg Tablet PO 50 mg DAILY ANA Administration Spironolactone 25 mg 12/18/24 11:00 12/19/24 09:41 Spironolactone 25 Mg Tablet PO 25 mg QAM ANA Administration Vitamin D 1,000 units 12/16/24 09:00 12/19/24 09:40 Cholecalciferol 1,000 Units Tablet PO 1,000 units DAILY ANA Administration Radiology Results: ITS Impressions Wrist X-Ray 12/15/24 12:55 IMPRESSION: 1. Nondisplaced avulsion fractures of the ulnar styloid. 2. Age-indeterminate nondisplaced fracture of radial styloid. 3. Small bone fragment dorsal to the carpus on the lateral view, which may be an avulsion fracture of dorsal pole of triquetrum. 4. Polyarticular osteoarthritis. Head CT 12/15/24 17:34 Impression: No acute intracranial hemorrhage or suspicious mass effect. Chest X-Ray 12/17/24 06:21 Impression: Probable mild bibasilar pulmonary edema and minimal pleural effusions. Underlying COPD pattern. Labs Labs: Laboratory Results - last 24 hr 12/16/24 12/19/24 00:32 07:00 WBC 5.2 RBC 3.70 L Hgb 10.7 L Hct 35.6 L MCV 96.2 MCH 28.9 MCHC 30.1 L RDW 14.4 Plt Count 194 MPV 9.6 Sodium 134 L Potassium 4.1 Chloride 93 L Carbon Dioxide > 40 H Anion Gap BUN 17 Creatinine 0.58 L Estim Creat Clear Calc 54 Estimated GFR > 60 Glucose 89 Calcium 8.2 L Urine Pneumococcal Ag Not detected
--- NOTE | 2024-12-19 12:17 | PM.PNCARD ---
Progress Note: A&P Assessment and Plan (1) Acute on chronic respiratory failure with hypoxia and hypercapnia: Code(s): J96.21 - Acute and chronic respiratory failure with hypoxia; J96.22 - Acute and chronic respiratory failure with hypercapnia Status: Acute Plan Acute on chronic heart failure with mildly reduced LVEF of 45-50% per TTE 08/29/2024 / nonischemic cardiomyopathy. Echocardiogram this admission with LVEF 50-55%. 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 daily. Will plan for Lasix 20mg once daily at home after discharge. -WOLFGANG hose for trace ankle edema -As for heart failure GDMT, continue Entresto, Jardiance, Toprol. Can consider addition of Spironolactone if there is blood pressure room. -Continue Flecainide and Toprol for her frequent PVCs -On antibiotics for possible pneumonia. -Cardiology will sign off please call with questions. Subjective Date/time seen: 12/19/24 12:17 Interval history: Cardiology follow up for CHF Date of service 12/18/2024: Feeling better today. Shortness of breath improving. No edema. Date of service 12/19/2024: Continues to improve. Breathing is stable at rest, does have some exertional dyspnea. Review of Systems Review of Systems: All systems reviewed & are unremarkable except as noted in HPI and below (HPI) Exam Const: General: no acute distress HENMT: Mouth: Yes moist mucous membranes Eyes: General: appearance normal, both eyes and all related structures Sclera: sclerae normal Resp: Effort & Inspection: normal respiratory effort Auscultation: crackles and diminished lung sounds Other: On supplemental oxygen Cardio: Rate: regular rate Rhythm: regular rhythm Heart sounds: no murmurs Other: No edema Neuro: Speech: normal speech Extrem: General: normal to inspection, no edema and no pedal edema Psych: Mental Status: mental status grossly normal Affect: normal affect Objective Data Vital Signs Vital Signs: Vital Signs - 24 hr 12/18/24 14:00 12/18/24 14:06 12/18/24 14:17 Temperature Pulse Rate 72 80 73 Respiratory Rate 20 20 Blood Pressure Pulse Oximetry Oxygen Delivery Oxygen Flow Rate 12/18/24 15:32 12/18/24 16:00 12/18/24 18:00 Temperature 36.7 C Pulse Rate 66 89 75 Respiratory Rate 20 Blood Pressure 102/41 L Pulse Oximetry 96 Oxygen Delivery Oxygen Flow Rate 12/18/24 19:35 12/18/24 20:36 12/18/24 20:36 Temperature Pulse Rate 74 78 78 Respiratory Rate 20 20 Blood Pressure Pulse Oximetry 94 Oxygen Delivery Nasal Cannula Oxygen Flow Rate 2 12/18/24 20:41 12/18/24 20:41 12/18/24 22:00 Temperature Pulse Rate 68 68 65 Respiratory Rate 20 Blood Pressure Pulse Oximetry 96 Oxygen Delivery Nasal Cannula Oxygen Flow Rate 2 12/18/24 22:00 12/18/24 22:30 12/18/24 23:00 Temperature 36.9 C Pulse Rate 65 74 Respiratory Rate 18 Blood Pressure 141/68 H Pulse Oximetry 94 95 Oxygen Delivery Nasal Cannula Oxygen Flow Rate 2 12/19/24 00:00 12/19/24 02:00 12/19/24 04:00 Temperature Pulse Rate 74 66 65 Respiratory Rate Blood Pressure Pulse Oximetry Oxygen Delivery Oxygen Flow Rate 12/19/24 07:38 12/19/24 07:40 12/19/24 08:00 Temperature 36.4 C Pulse Rate 69 72 Respiratory Rate 20 Blood Pressure 122/56 L Pulse Oximetry 98 94 98 Oxygen Delivery High Flow Therapy with Na Nasal Cannula Oxygen Flow Rate 2 2 12/19/24 08:00 12/19/24 08:51 12/19/24 08:51 Temperature Pulse Rate 76 68 Respiratory Rate 20 Blood Pressure Pulse Oximetry 94 Oxygen Delivery Nasal Cannula Oxygen Flow Rate 2 12/19/24 09:01 12/19/24 09:40 12/19/24 10:00 Temperature Pulse Rate 74 78 71 Respiratory Rate 20 Blood Pressure Pulse Oximetry Oxygen Delivery Oxygen Flow Rate 12/19/24 12:00 Temperature Pulse Rate 75 Respiratory Rate Blood Pressure Pulse Oximetry Oxygen Delivery Oxygen Flow Rate Intake/Output Intake/Output: Intake & Output 12/16/24 12/17/24 12/18/24 12/19/24 23:59 23:59 23:59 23:59 Intake Total 1760 1100 1790 270 Output Total 1045 957 3630 2150 Balance 285 741 479 -7575 Meds/Results Medications: Active Medications Generic Name Dose Route Start Last Admin Trade Name Jodie PRN Reason Stop Dose Admin Acetaminophen 650 mg 12/15/24 15:19 12/17/24 21:23 Acetaminophen 325 Mg Tablet PO 650 mg Q4H PRN Administration Mild Pain (1-3) or Fever Hydrocodone Bitart/Acetaminophen 1 tab 12/15/24 22:01 Hydrocodone/Acetaminophen (*Crx) 5-325 Mg Tablet PO Q6H PRN Pain Rated 7-10 Albuterol/Ipratropium 3 ml 12/16/24 02:00 12/19/24 08:51 Ipratropium 0.5 Mg/Albuterol Sulfate 2.5 Mg Ampul.Neb 3 Ml INHALATION 3 ml Q6HRT ANA Administration Alprazolam 0.25 mg 12/15/24 22:01 12/15/24 22:22 Alprazolam (*Crx) 0.25 Mg Tablet PO 0.25 mg TID PRN Administration anxiety Azithromycin 500 mg 12/17/24 21:00 12/18/24 20:42 Azithromycin 250 Mg Tablet PO 12/19/24 21:01 500 mg QHS ANA Administration Diclofenac Sodium 50 mg 12/15/24 23:14 Diclofenac Sod 25 Mg Tablet.Ec PO Q12H PRN pain 4-6 Empagliflozin 10 mg 12/16/24 09:00 12/19/24 09:41 Empagliflozin 10 Mg Tablet PO 10 mg DAILY ANA Administration Enoxaparin Sodium 40 mg 12/16/24 09:00 12/19/24 09:39 Enoxaparin 40 Mg/0.4 Ml Syringe SUB-Q 40 mg DAILY ANA Administration Famotidine 40 mg 12/15/24 22:05 12/18/24 20:41 Famotidine 20 Mg Tablet PO 40 mg QHS ANA Administration Fentanyl 25 mcg 12/17/24 09:55 12/17/24 10:50 Fentanyl (*Crx) 25 Mcg Patch TRANSDERM 25 mcg Q72HR ANA Administration Flecainide Acetate 100 mg 12/16/24 09:00 12/19/24 09:40 Flecainide Acetate 100 Mg Tablet PO 100 mg Q12HR ANA Administration Gabapentin 300 mg 12/16/24 09:00 12/19/24 09:41 Gabapentin 300 Mg Capsule PO 300 mg BID ANA Administration Cefepime HCl 2 gm in 50 mls @ 100 mls/hr 12/15/24 21:00 12/19/24 09:39 Maxipime 2 Gm/Ns 50 Ml IVPB 100 mls/hr Q12HR ANA Administration Lidocaine 1 patch 12/16/24 09:00 12/19/24 09:39 Lidocaine 5% Patch TRANSDERM 1 patch DAILY ANA Administration Magnesium Oxide 200 mg 12/16/24 09:00 12/19/24 09:41 Magnesium Oxide 200 Mg Tablet PO 200 mg DAILY ANA Administration Metoprolol Succinate 25 mg 12/16/24 21:00 12/18/24 20:41 Metoprolol Succinate Ext Rel 25 Mg Tabcr PO 25 mg QHS ANA Administration Mirtazapine 7.5 mg 12/15/24 22:05 12/18/24 20:42 Mirtazapine 7.5 Mg Tablet PO 7.5 mg QHS ANA Administration Multivitamins Therapeutic 1 tablet 12/16/24 09:00 12/19/24 09:41 Multivitamins Therapeutic Tab (*Bkc) PO 1 tablet DAILY ANA Administration Ondansetron HCl 4 mg 12/15/24 15:19 Ondansetron Inj 4 Mg/2 Ml Vial IV PUSH Q4H PRN Nausea Perflutren Lipid Microsphere 0 ml 12/16/24 15:34 Perflutren Lipid Microspheres 1.5 Ml Vial Diluted To 10 Ml Total Volume IV PUSH 12/19/24 15:34 ONCE PRN adequate visualization Protocol Sacubitril/Valsartan 1 tab 12/16/24 09:00 12/19/24 09:41 Sacubitril/Valsartan 24-26 Mg Tablet PO 1 tab Q12HR ANA Administration Sertraline HCl 50 mg 12/16/24 09:00 12/19/24 09:41 Sertraline Hcl 50 Mg Tablet PO 50 mg DAILY ANA Administration Spironolactone 25 mg 12/18/24 11:00 12/19/24 09:41 Spironolactone 25 Mg Tablet PO 25 mg QAM [facility] Administration Vitamin D 1,000 units 12/16/24 09:00 12/19/24 09:40 Cholecalciferol 1,000 Units Tablet PO 1,000 units DAILY ANA Administration Radiology Results: ITS Impressions Wrist X-Ray 12/15/24 12:55 IMPRESSION: 1. Nondisplaced avulsion fractures of the ulnar styloid. 2. Age-indeterminate nondisplaced fracture of radial styloid. 3. Small bone fragment dorsal to the carpus on the lateral view, which may be an avulsion fracture of dorsal pole of triquetrum. 4. Polyarticular osteoarthritis. Head CT 12/15/24 17:34 Impression: No acute intracranial hemorrhage or suspicious mass effect. Chest X-Ray 12/17/24 06:21 Impression: Probable mild bibasilar pulmonary edema and minimal pleural effusions. Underlying COPD pattern. Labs Labs: Laboratory Results - last 24 hr 12/16/24 12/19/24 00:32 07:00 WBC 5.2 RBC 3.70 L Hgb 10.7 L Hct 35.6 L MCV 96.2 MCH 28.9 MCHC 30.1 L RDW 14.4 Plt Count 194 MPV 9.6 Sodium 134 L Potassium 4.1 Chloride 93 L Carbon Dioxide > 40 H Anion Gap BUN 17 Creatinine 0.58 L Estim Creat Clear Calc 54 Estimated GFR > 60 Glucose 89 Calcium 8.2 L Urine Pneumococcal Ag Not detected Quality VTE Prophylaxis VTE prophylaxis: pharmacologic ordered (Lovenox 40 mg subQ daily.)
--- NOTE | 2024-12-19 13:13 | HOMEO2EVAL ---
Evaluation was performed at [facility] Home Oxygen Evaluation RC: Home Oxygen (O2) Evaluation Start: 12/19/24 11:10 Freq: ONCE Status: Active Protocol: RPE Activity Type Activity Date Activity User E-sign Co-sign Detail Recorded Client Recorded Date Recorded By Document 12/19/24 11:30 [email or web address] [email or web address] 12/19/24 13:13 MINDA Document 12/19/24 11:31 [email or web address] 12/19/24 13:13 MINDA Document 12/19/24 11:32 [email or web address] 12/19/24 13:13 MINDA Document 12/19/24 11:38 [email or web address] 12/19/24 13:13 MINDA Document 12/19/24 11:40 [email or web address] [email or web address] 12/19/24 13:13 MINDA Document 12/19/24 11:42 [email or web address] [email or web address] 12/19/24 13:13 MINDA Document 12/19/24 11:50 [email or web address] [email or web address] 12/19/24 13:13 MINDA 12/19/24 12/19/24 12/19/24 11:30 11:31 11:32 Home O2 Evaluation [Oxygen] -Test Phase Resting Resting Resting -Oxygen Delivery Room Air Nasal Cannula Nasal Cannula -Oxygen Flow Rate (L/min) 1 2 [Pulse Oximetry] -Pulse Oximetry (90-100 %) 87 L 88 L 95 [Exercise] -Ambulation Distance (feet) -Ambulation Distance (meters) [Comments] -Home Oxygen Evaluation Comments [Charges] -Evaluation Charges O2 Evaluation by Pulmonary 12/19/24 12/19/24 12/19/24 11:38 11:40 11:42 Home O2 Evaluation [Oxygen] -Test Phase Exercise Exercise Exercise -Oxygen Delivery Nasal Cannula Nasal Cannula Nasal Cannula -Oxygen Flow Rate (L/min) 2 3 4 [Pulse Oximetry] -Pulse Oximetry (90-100 %) 85 L 87 L 91 [Exercise] -Ambulation Distance (feet) 800 -Ambulation Distance (meters) 243.82 [Comments] -Home Oxygen Evaluation Comments Walked halls x2 . walked in room also. Deep breathing encouraged. 2 L at rest and 4 L with activity [Charges] -Evaluation Charges 12/19/24 11:50 Home O2 Evaluation [Oxygen] -Test Phase Resting -Oxygen Delivery Nasal Cannula -Oxygen Flow Rate (L/min) 2 [Pulse Oximetry] -Pulse Oximetry (90-100 %) 95 [Exercise] -Ambulation Distance (feet) -Ambulation Distance (meters) [Comments] -Home Oxygen Evaluation Comments [Charges] -Evaluation Charges
--- NOTE | 2024-12-19 13:13 | PCRCNOTE ---
Home O2 eval done, requires 2 l at rest and 4 l with activity. Pt has DME [facility], pt has portable O2 for transport home. Daughter is aware of increased needs and encouraging deep breathing with exertion
--- NOTE | 2024-12-19 15:08 | PM.IMPN ---
Progress Note: A&P Assessment and Plan (1) Acute on chronic respiratory failure with hypoxia and hypercapnia: Code(s): J96.21 - Acute and chronic respiratory failure with hypoxia; J96.22 - Acute and chronic respiratory failure with hypercapnia Status: Acute Assessment and Plan: Patient with acute on chronic respiratory failure. multifactorial acute on chronic s/d CHF exacerbation with PNA and possibly interstitial lung disease/COPD. Patient also with bronchiectasis and MAC history; she has been unable to tolerate vest therapy well at home. DC vest Also consider related to hypopnea related to over medication from narcotics - was getting fentanyl patch for her chronic pain. Weaned off Bipap and now on 2lit O2 saturation 93% Plan for initiating home noninvasive ventilation Fluid status much better with lasix. Continue nebulizer treatments. Continue schedule vest therapy as tolerated. Continue BiPAP at night and with naps; okay to use as needed during the day if feeling SOB. Abx started with Rocephin and azithromycin but changed to cefepime and vancomycin. will DC Vanc. Continue azithromycin for atypical coverage. Continue antibiotics while inpatient MRSA negative. COVID, RSV and influenza PCR negative. PCT 0.3. BCx NGTD. Continue abx. continue LAsix change to p.o., Entresto, metoprolol. spironolactone Condition on board Pulmonary team on board plan for decided study (2) Sepsis: Qualifiers: Sepsis type: sepsis due to unspecified organism Sepsis acute organ dysfunction status: with acute organ dysfunction Severe sepsis acute organ dysfunction type: acute respiratory failure Acute respiratory failure type: with hypercapnia Severe sepsis shock status: without septic shock Qualified Code(s): A41.9 - Sepsis, unspecified organism; R65.20 - Severe sepsis without septic shock; J96.02 - Acute respiratory failure with hypercapnia Code(s): A41.9 - Sepsis, unspecified organism Status: Acute Assessment and Plan: As above. Related to PNA (3) CHF (congestive heart failure): Qualifiers: Heart failure chronicity: acute on chronic Heart failure type: combined systolic and diastolic Qualified Code(s): I50.43 - Acute on chronic combined systolic (congestive) and diastolic (congestive) heart failure Code(s): I50.9 - Heart failure, unspecified Status: Acute Assessment and Plan: As above. Echo in 12/13/24 showing normal LV size, mild LV systolic dysfunction, EF 40-45% Lasixpo (4) Pneumonia: Qualifiers: Laterality: bilateral Lung location: unspecified part of lung Pneumonia type: due to unspecified organism Qualified Code(s): J18.9 - Pneumonia, unspecified organism Code(s): J18.9 - Pneumonia, unspecified organism Status: Acute Assessment and Plan: As above. (5) Invasive ductal carcinoma of left breast: Code(s): C50.912 - Malignant neoplasm of unspecified site of left female breast Status: Acute Assessment and Plan: Patietn with known breast CA. Recent PET scan 12/10/24 showing increased uptake in the lymph nodes at the left axilla extending to lateral left breast consistent with local metastatic disease, increased uptake with subtle lytic lesions in the left 5th rib and right scapula. Mild diffuse uptake associated with T6 and T7 compression fractures and fractures of the immediately adjacent posterior right 6th and 8th rib. Cannot exclude pathological fractures. Supportive care. Pain control Follow-up with Oncology as outpatient (6) Cancer, metastatic to bone: Code(s): C79.51 - Secondary malignant neoplasm of bone Status: Acute Assessment and Plan: As above (7) Left radial head fracture: Qualifiers: Encounter type: initial encounter Fracture type: closed Fracture alignment: nondisplaced Qualified Code(s): S52.125A - Nondisplaced fracture of head of left radius, initial encounter for closed fracture Code(s): S52.122A - Displaced fracture of head of left radius, initial encounter for closed fracture Status: Deleted Assessment and Plan: Patient's left radial and ulnar fractures likely related to her fall that occurred before her last hospitalization. Her wrist is currently splinted. Orthopedic surgery has been consulted. plan for conservative management Will elevate extremity to help reduce edema. Continue supportive care. (8) Left ulnar fracture: Qualifiers: Encounter type: initial encounter Ulna location: styloid process Fracture type: closed Fracture alignment: nondisplaced Qualified Code(s): S52.615A - Nondisplaced fracture of left ulna styloid process, initial encounter for closed fracture Code(s): S52.202A - Unspecified fracture of shaft of left ulna, initial encounter for closed fracture Status: Acute Assessment and Plan: As above Plan DVT prophyalxis - Lovenox Code status - DNR Subjective Date/time seen: 12/19/24 15:08 Interval history: 84yo female with combined systolic and diastolic CHF, COPD with chronic hypoxic hypercapnic respiratory failure on home O2 of 2 L, chronic MAC, and 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 SOB better today. has a nonproductive cough. Hx of pseudomonas infection. No CP but has pleuritic left posterior shoulder pain. Weaned to 6L. The facial edema is better. 12/17/24 Patient was seen and examined at bedside. She has been better. Breathing improving but still needs 6l. Bilateral edema improving. Continue BIPAP as needed and at night 12/18/24 Patient was seen and examined at bedside. She is feeling better. Oxygen saturation 92% on 2 L oxygen. Denies any chest pain, abdominal pain, nausea vomiting. Discussed with pulmonary team. Plan for desat study on 2 L oxygen tonight. DC vest. Cardiology team on board. Continue with Lasix, Entresto and Jardiance. 12/19/24 Patient was seen and examined at bedside. She is feeling better. Breathing improved. She is on 2 L oxygen. Reviewed cardiology's note. lasix changed to 20 mg daily Patient has chronic hypercarbic respiratory failure . Pulmonary Team will initiate home noninvasive ventilation. Review of Systems Review of Systems: 12 systems were reviewed with pertinent positives and negatives per HPI. Except as documented in the HPI, all other systems were reviewed and are negative. Exam Narrative: 98.7 94/40 73 20 96% HFNC Gen - NARD Chest - inspiratory rhonchi in the mid and lower lung johnson. CV - RRR S1/S2; Tele showing sinus with PVCs Abd - soft, NT/ND, +BS Ext - trace zbigniew-ankle edema. Neuro - alert and appropriate Psych - pleasant and cooperative Skin - warm and dry Const: Other: well-developed well-nourished, elderly, debilitated HENMT: Other: Mucous membranes are ok, no oral pharyngeal erythema, fair dentition, head is normocephalic atraumatic Eyes: Other: pupils are equal and reactive with evidence of bilateral lens implants Neck: Other: No JVD, no lymphadenopathy Resp: Other: mild tachypnea, coarse crackles throughout Cardio: Other: Regular rate, regular rhythm, trace bilateral radial pedal pulses GI: Other: Soft, nontender, nondistended, positive bowel sounds Back/Spine/Pelvis: Other: Thoracic kyphosis Skin: Other: Warm to touch, non jaundice, mild pallor Neuro: Other: Alert oriented x4, speech is clear, no facial asymmetry, no localizing neurologic deficits noted during the course of conversation Extrem: Other: Bilateral upper extremity edema trace left greater than right, left upper extremity has splint in place, trace lower extremity edema bilaterally Psych: Other: Appropriate mood and affect, pleasant and cooperative, judgment and insight intact Objective Data Vital Signs Vital Signs: Vital Signs - 24 hr 12/18/24 15:32 12/18/24 16:00 12/18/24 18:00 Temperature 98.1 F Pulse Rate 66 89 75 Respiratory Rate 20 Blood Pressure 102/41 L Pulse Oximetry 96 Oxygen Delivery Oxygen Flow Rate 12/18/24 19:35 12/18/24 20:36 12/18/24 20:36 Temperature Pulse Rate 74 78 78 Respiratory Rate 20 20 Blood Pressure Pulse Oximetry 94 Oxygen Delivery Nasal Cannula Oxygen Flow Rate 2 12/18/24 20:41 12/18/24 20:41 12/18/24 22:00 Temperature Pulse Rate 68 68 65 Respiratory Rate 20 Blood Pressure Pulse Oximetry 96 Oxygen Delivery Nasal Cannula Oxygen Flow Rate 2 12/18/24 22:00 12/18/24 22:30 12/18/24 23:00 Temperature 98.4 F Pulse Rate 65 74 Respiratory Rate 18 Blood Pressure 141/68 H Pulse Oximetry 94 95 Oxygen Delivery Nasal Cannula Oxygen Flow Rate 2 12/19/24 00:00 12/19/24 02:00 12/19/24 04:00 Temperature Pulse Rate 74 66 65 Respiratory Rate Blood Pressure Pulse Oximetry Oxygen Delivery Oxygen Flow Rate 12/19/24 07:38 12/19/24 07:40 12/19/24 08:00 Temperature 97.6 F Pulse Rate 69 72 Respiratory Rate 20 Blood Pressure 122/56 L Pulse Oximetry 98 94 98 Oxygen Delivery High Flow Therapy with Na Nasal Cannula Oxygen Flow Rate 2 2 12/19/24 08:00 12/19/24 08:51 12/19/24 08:51 Temperature Pulse Rate 76 68 Respiratory Rate 20 Blood Pressure Pulse Oximetry 94 Oxygen Delivery Nasal Cannula Oxygen Flow Rate 2 12/19/24 09:01 12/19/24 09:40 12/19/24 10:00 Temperature Pulse Rate 74 78 71 Respiratory Rate 20 Blood Pressure Pulse Oximetry Oxygen Delivery Oxygen Flow Rate 12/19/24 11:30 12/19/24 11:31 12/19/24 11:32 Temperature Pulse Rate Respiratory Rate Blood Pressure Pulse Oximetry 87 L 88 L 95 Oxygen Delivery Room Air Nasal Cannula Nasal Cannula Oxygen Flow Rate 1 2 12/19/24 11:38 12/19/24 11:40 12/19/24 11:42 Temperature Pulse Rate Respiratory Rate Blood Pressure Pulse Oximetry 85 L 87 L 91 Oxygen Delivery Nasal Cannula Nasal Cannula Nasal Cannula Oxygen Flow Rate 2 3 4 12/19/24 11:50 12/19/24 12:00 12/19/24 14:33 Temperature 98.4 F Pulse Rate 75 80 Respiratory Rate 16 Blood Pressure 126/49 L Pulse Oximetry 95 91 Oxygen Delivery Nasal Cannula Oxygen Flow Rate 2 Intake/Output Intake/Output: Intake & Output 12/16/24 12/17/24 12/18/24 12/19/24 23:59 23:59 23:59 23:59 Intake Total 1760 1100 1790 270 Output Total 0899 879 2973 2150 Balance 285 802 358 -7560 Meds/Results Medications: Active Medications Generic Name Dose Route Start Last Admin Trade Name Freq PRN Reason Stop Dose Admin Acetaminophen 650 mg 12/15/24 15:19 12/17/24 21:23 Acetaminophen 325 Mg Tablet PO 650 mg Q4H PRN Administration Mild Pain (1-3) or Fever Hydrocodone Bitart/Acetaminophen 1 tab 12/15/24 22:01 Hydrocodone/Acetaminophen (*Crx) 5-325 Mg Tablet PO Q6H PRN Pain Rated 7-10 Albuterol/Ipratropium 3 ml 12/16/24 02:00 12/19/24 08:51 Ipratropium 0.5 Mg/Albuterol Sulfate 2.5 Mg Ampul.Neb 3 Ml INHALATION 3 ml Q6HRT ANA Administration Alprazolam 0.25 mg 12/15/24 22:01 12/15/24 22:22 Alprazolam (*Crx) 0.25 Mg Tablet PO 0.25 mg TID PRN Administration anxiety Azithromycin 500 mg 12/17/24 21:00 12/18/24 20:42 Azithromycin 250 Mg Tablet PO 12/19/24 21:01 500 mg QHS ANA Administration Diclofenac Sodium 50 mg 12/15/24 23:14 Diclofenac Sod 25 Mg Tablet.Ec PO Q12H PRN pain 4-6 Empagliflozin 10 mg 12/16/24 09:00 12/19/24 09:41 Empagliflozin 10 Mg Tablet PO 10 mg DAILY ANA Administration Enoxaparin Sodium 40 mg 12/16/24 09:00 12/19/24 09:39 Enoxaparin 40 Mg/0.4 Ml Syringe SUB-Q 40 mg DAILY ANA Administration Famotidine 40 mg 12/15/24 22:05 12/18/24 20:41 Famotidine 20 Mg Tablet PO 40 mg QHS ANA Administration Fentanyl 25 mcg 12/17/24 09:55 12/17/24 10:50 Fentanyl (*Crx) 25 Mcg Patch TRANSDERM 25 mcg Q72HR ANA Administration Flecainide Acetate 100 mg 12/16/24 09:00 12/19/24 09:40 Flecainide Acetate 100 Mg Tablet PO 100 mg Q12HR ANA Administration Furosemide 20 mg 12/20/24 09:00 Furosemide 20 Mg Tablet PO DAILY ANA Gabapentin 300 mg 12/16/24 09:00 12/19/24 09:41 Gabapentin 300 Mg Capsule PO 300 mg BID ANA Administration Cefepime HCl 2 gm in 50 mls @ 100 mls/hr 12/15/24 21:00 12/19/24 09:39 Maxipime 2 Gm/Ns 50 Ml IVPB 100 mls/hr Q12HR ANA Administration Lidocaine 1 patch 12/16/24 09:00 12/19/24 09:39 Lidocaine 5% Patch TRANSDERM 1 patch DAILY ANA Administration Magnesium Oxide 200 mg 12/16/24 09:00 12/19/24 09:41 Magnesium Oxide 200 Mg Tablet PO 200 mg DAILY ANA Administration Metoprolol Succinate 25 mg 12/16/24 21:00 12/18/24 20:41 Metoprolol Succinate Ext Rel 25 Mg Tabcr PO 25 mg QHS ANA Administration Mirtazapine 7.5 mg 12/15/24 22:05 12/18/24 20:42 Mirtazapine 7.5 Mg Tablet PO 7.5 mg QHS ANA Administration Multivitamins Therapeutic 1 tablet 12/16/24 09:00 12/19/24 09:41 Multivitamins Therapeutic Tab (*Bkc) PO 1 tablet DAILY ANA Administration Ondansetron HCl 4 mg 12/15/24 15:19 Ondansetron Inj 4 Mg/2 Ml Vial IV PUSH Q4H PRN Nausea Perflutren Lipid Microsphere 0 ml 12/16/24 15:34 Perflutren Lipid Microspheres 1.5 Ml Vial Diluted To 10 Ml Total Volume IV PUSH 12/19/24 15:34 ONCE PRN adequate visualization Protocol Sacubitril/Valsartan 1 tab 12/16/24 09:00 12/19/24 09:41 Sacubitril/Valsartan 24-26 Mg Tablet PO 1 tab Q12HR ANA Administration Sertraline HCl 50 mg 12/16/24 09:00 12/19/24 09:41 Sertraline Hcl 50 Mg Tablet PO 50 mg DAILY ANA Administration Spironolactone 25 mg 12/18/24 11:00 12/19/24 09:41 Spironolactone 25 Mg Tablet PO 25 mg QAM ANA Administration Vitamin D 1,000 units 12/16/24 09:00 12/19/24 09:40 Cholecalciferol 1,000 Units Tablet PO 1,000 units DAILY ANA Administration Radiology Results: ITS Impressions Wrist X-Ray 12/15/24 12:55 IMPRESSION: 1. Nondisplaced avulsion fractures of the ulnar styloid. 2. Age-indeterminate nondisplaced fracture of radial styloid. 3. Small bone fragment dorsal to the carpus on the lateral view, which may be an avulsion fracture of dorsal pole of triquetrum. 4. Polyarticular osteoarthritis. Head CT 12/15/24 17:34 Impression: No acute intracranial hemorrhage or suspicious mass effect. Chest X-Ray 12/17/24 06:21 Impression: Probable mild bibasilar pulmonary edema and minimal pleural effusions. Underlying COPD pattern. Labs Labs: Laboratory Results - last 24 hr 12/19/24 07:00 WBC 5.2 RBC 3.70 L Hgb 10.7 L Hct 35.6 L MCV 96.2 MCH 28.9 MCHC 30.1 L RDW 14.4 Plt Count 194 MPV 9.6 Sodium 134 L Potassium 4.1 Chloride 93 L Carbon Dioxide > 40 H Anion Gap BUN 17 Creatinine 0.58 L Estim Creat Clear Calc 54 Estimated GFR > 60 Glucose 89 Calcium 8.2 L Quality VTE Prophylaxis VTE prophylaxis: pharmacologic ordered (Lovenox 40 mg subQ daily.)
[2024-12-19] MEDS: AZITHROMYCIN 250 MG TABLET 500 MG PO (20:50)
[2024-12-19] MEDS: METOPROLOL SUCCINATE EXT REL 25 MG TABCR PO (20:50)
[2024-12-19] MEDS: MIRTAZAPINE 7.5 MG TABLET PO (20:50)
[2024-12-19] MEDS: FAMOTIDINE 20 MG TABLET 40 MG PO (20:51)
[2024-12-20] VITALS (15 sets, daily range): BP systolic 105–123; BP diastolic 45–52; PULSE 60–88; RESP 15–21; TEMP 36.5–36.9; O2SAT 93–97
[2024-12-20] MEDS: ALPRAZolam (*CRX) 0.25 MG TABLET PO ×3 (00:25→22:02)
[2024-12-20 05:03] LABS: Alveolar/Arterial O2 Gradient 57.9 mmHg; Base Excess ABG 11.2 mEq/l (+/-2.0); Fractional Inspired Oxygen 28 %; HCO3 ABG 37.2 mEq/l (22.0-26.0); Oxygen Content ABG 15.8 %vol (16.0-22.0); Oxygen Saturation ABG 95.4 % (95.0-100.0); Oxyhemoglobin 94.2 % THb (90.0-100.0); PCO2 ABG 55.6 mmHg (35.0-45.0); PO2 ABG 76.1 mmHg (80.0-100.0); PO2 FiO2 Ratio Arterial Blood 2.72 %; Total Hemoglobin 11.9 g/dL (12.0-18.0); pH ABG 7.443 (7.350-7.450)
[2024-12-20 05:04] LABS: Device OTHER DEVICE; Modified Allen's Test Pass; Site Drawn RIGHT RADIAL
[2024-12-20 06:04] LABS: Hematocrit 33.9 % (37.0-47.0); Hemoglobin 10.3 g/dL (12.0-15.0); Mean Corpuscular HGB Conc 30.4 g/dl (32-36); Mean Corpuscular Hemoglobin 28.9 pg (26-34); Mean Corpuscular Volume 95.2 fl (80-100); Mean Platelet Volume 9.7 fl (7.4-10.4); Platelet Count Result 176 k/mm3 (150-375); Red Blood Count 3.56 M/mm3 (4.2-5.4); Red Cell Distribution Width 14.2 % (11.5-14.5); White Blood Count 5.5 K/mm3 (4.5-10.0)
--- NOTE | 2024-12-20 06:04 | PCRCNOTE ---
Patient was not given her 0200 breathing tx due to patient being on an overnight oximetry study. See next scheduled treatment at 0800
[2024-12-20 06:19] LABS: Blood Urea Nitrogen 19 mg/dL (7-17); Calcium 8.4 mg/dL (8.4-10.2); Carbon Dioxide > 40 mmol/L (22-30); Chloride 92 mmol/L (98-107); Estimated CRCL calculation 61 ml/min; Estimated Glomerular Filt Rate > 60; Glucose 100 mg/dL (65-110); Potassium 3.9 mmol/L (3.4-5.0); Sodium 135 mmol/L (137-145)
[2024-12-20] MEDS: IPRATROPIUM 0.5 MG/ALBUTEROL SULFATE 2.5 MG AMPUL.NEB 3 ML INHALATION ×3 (07:40→19:57)
--- NOTE | 2024-12-20 07:41 | PM.IMPN ---
Progress Note: A&P Assessment and Plan (1) Acute on chronic respiratory failure with hypoxia and hypercapnia: Code(s): J96.21 - Acute and chronic respiratory failure with hypoxia; J96.22 - Acute and chronic respiratory failure with hypercapnia Status: Acute Assessment and Plan: Patient with acute on chronic respiratory failure. multifactorial acute on chronic s/d CHF exacerbation with PNA and possibly interstitial lung disease/COPD. Patient also with bronchiectasis and MAC history; she has been unable to tolerate vest therapy well at home. DC vest Also consider related to hypopnea related to over medication from narcotics - was getting fentanyl patch for her chronic pain. Weaned off Bipap and now on 2lit O2 saturation 93% Plan for initiating home noninvasive ventilation Fluid status much better with lasix. Continue nebulizer treatments. Continue schedule vest therapy as tolerated. Continue BiPAP at night and with naps; okay to use as needed during the day if feeling SOB. Continue cefepime MRSA negative. COVID, RSV and influenza PCR negative. PCT 0.3. BCx NGTD. Continue abx. continue LAsix change to p.o., Entresto, metoprolol. spironolactone Cardiology team on board Pulmonary team on board (2) Sepsis: Qualifiers: Acute respiratory failure type: with hypercapnia Sepsis acute organ dysfunction status: with acute organ dysfunction Sepsis type: sepsis due to unspecified organism Severe sepsis acute organ dysfunction type: acute respiratory failure Severe sepsis shock status: without septic shock Qualified Code(s): A41.9 - Sepsis, unspecified organism; R65.20 - Severe sepsis without septic shock; J96.02 - Acute respiratory failure with hypercapnia Code(s): A41.9 - Sepsis, unspecified organism Status: Acute Assessment and Plan: As above. Related to PNA (3) CHF (congestive heart failure): Qualifiers: Heart failure chronicity: acute on chronic Heart failure type: combined systolic and diastolic Qualified Code(s): I50.43 - Acute on chronic combined systolic (congestive) and diastolic (congestive) heart failure Code(s): I50.9 - Heart failure, unspecified Status: Acute Assessment and Plan: As above. Echo in 08/29/24 showing normal LV size, mild LV systolic dysfunction, EF 40-45% Lasixpo (4) Pneumonia: Qualifiers: Laterality: bilateral Lung location: unspecified part of lung Pneumonia type: due to unspecified organism Qualified Code(s): J18.9 - Pneumonia, unspecified organism Code(s): J18.9 - Pneumonia, unspecified organism Status: Acute Assessment and Plan: As above. (5) Invasive ductal carcinoma of left breast: Code(s): C50.912 - Malignant neoplasm of unspecified site of left female breast Status: Acute Assessment and Plan: Patietn with known breast CA. Recent PET scan 12/10/24 showing increased uptake in the lymph nodes at the left axilla extending to lateral left breast consistent with local metastatic disease, increased uptake with subtle lytic lesions in the left 5th rib and right scapula. Mild diffuse uptake associated with T6 and T7 compression fractures and fractures of the immediately adjacent posterior right 6th and 8th rib. Cannot exclude pathological fractures. Supportive care. Pain control Follow-up with Oncology as outpatient (6) Cancer, metastatic to bone: Code(s): C79.51 - Secondary malignant neoplasm of bone Status: Acute Assessment and Plan: As above (7) Left radial head fracture: Qualifiers: Encounter type: initial encounter Fracture alignment: nondisplaced Fracture type: closed Qualified Code(s): S52.125A - Nondisplaced fracture of head of left radius, initial encounter for closed fracture Code(s): S52.122A - Displaced fracture of head of left radius, initial encounter for closed fracture Status: Deleted Assessment and Plan: Patient's left radial and ulnar fractures likely related to her fall that occurred before her last hospitalization. Her wrist is currently splinted. Orthopedic surgery has been consulted. plan for conservative management Will elevate extremity to help reduce edema. Continue supportive care. (8) Left ulnar fracture: Qualifiers: Encounter type: initial encounter Fracture alignment: nondisplaced Fracture type: closed Ulna location: styloid process Qualified Code(s): S52.615A - Nondisplaced fracture of left ulna styloid process, initial encounter for closed fracture Code(s): S52.202A - Unspecified fracture of shaft of left ulna, initial encounter for closed fracture Status: Acute Assessment and Plan: As above Plan DVT prophyalxis - Lovenox Code status - DNR Subjective Date/time seen: 12/20/24 07:41 Interval history: 84yo female with combined systolic and diastolic CHF, COPD with chronic hypoxic hypercapnic respiratory failure on home O2 of 2 L, chronic MAC, and 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 SOB better today. has a nonproductive cough. Hx of pseudomonas infection. No CP but has pleuritic left posterior shoulder pain. Weaned to 6L. The facial edema is better. 12/17/24 Patient was seen and examined at bedside. She has been better. Breathing improving but still needs 6l. Bilateral edema improving. Continue BIPAP as needed and at night 12/18/24 Patient was seen and examined at bedside. She is feeling better. Oxygen saturation 92% on 2 L oxygen. Denies any chest pain, abdominal pain, nausea vomiting. Discussed with pulmonary team. Plan for desat study on 2 L oxygen tonight. DC vest. Cardiology team on board. Continue with Lasix, Entresto and Jardiance. 12/19/24 Patient was seen and examined at bedside. She is feeling better. Breathing improved. She is on 2 L oxygen. Reviewed cardiology's note. lasix changed to 20 mg daily Patient has chronic hypercarbic respiratory failure . Pulmonary Team will initiate home noninvasive ventilation. 12/20/24 Patient was seen examined at bedside. She feels fine. Denies any chest pain. Abdominal pain, nausea vomiting. Breathing improving Blood pressure 123/52. WBC 5.5, hemoglobin 10.3, sodium 135, potassium 3.9 ABG showed pCO2 55.6, Decreased fentanyl patch to 12.5 Review of Systems Review of Systems: 12 systems were reviewed with pertinent positives and negatives per HPI. Except as documented in the HPI, all other systems were reviewed and are negative. Exam Narrative: 98.7 94/40 73 20 96% HFNC Gen - NARD Chest - inspiratory rhonchi in the mid and lower lung johnson. CV - RRR S1/S2; Abd - soft, NT/ND, +BS Ext -no zbigniew-ankle edema. Neuro - alert and appropriate Psych - pleasant and cooperative Skin - warm and dry Const: Other: well-developed well-nourished, elderly, debilitated HENMT: Other: Mucous membranes are ok, no oral pharyngeal erythema, fair dentition, head is normocephalic atraumatic Eyes: Other: pupils are equal and reactive with evidence of bilateral lens implants Neck: Other: No JVD, no lymphadenopathy Resp: Other: clear lungs Cardio: Other: Regular rate, regular rhythm, trace bilateral radial pedal pulses GI: Other: Soft, nontender, nondistended, positive bowel sounds Back/Spine/Pelvis: Other: Thoracic kyphosis Skin: Other: Warm to touch, non jaundice, mild pallor Neuro: Other: Alert oriented x4, speech is clear, no facial asymmetry, no localizing neurologic deficits noted during the course of conversation Extrem: Other: , left upper extremity has splint in place, no lower extremity edema bilaterally Psych: Other: Appropriate mood and affect, pleasant and cooperative, judgment and insight intact Objective Data Vital Signs Vital Signs: Vital Signs - 24 hr 12/19/24 08:00 12/19/24 08:00 12/19/24 08:51 Temperature Pulse Rate 76 Respiratory Rate Blood Pressure Pulse Oximetry 98 94 Oxygen Delivery Nasal Cannula Nasal Cannula Oxygen Flow Rate 2 2 12/19/24 08:51 12/19/24 09:01 12/19/24 09:40 Temperature Pulse Rate 68 74 78 Respiratory Rate 20 20 Blood Pressure Pulse Oximetry Oxygen Delivery Oxygen Flow Rate 12/19/24 10:00 12/19/24 11:30 12/19/24 11:31 Temperature Pulse Rate 71 Respiratory Rate Blood Pressure Pulse Oximetry 87 L 88 L Oxygen Delivery Room Air Nasal Cannula Oxygen Flow Rate 1 12/19/24 11:32 12/19/24 11:38 12/19/24 11:40 Temperature Pulse Rate Respiratory Rate Blood Pressure Pulse Oximetry 95 85 L 87 L Oxygen Delivery Nasal Cannula Nasal Cannula Nasal Cannula Oxygen Flow Rate 2 2 3 12/19/24 11:42 12/19/24 11:50 12/19/24 12:00 Temperature Pulse Rate 75 Respiratory Rate Blood Pressure Pulse Oximetry 91 95 Oxygen Delivery Nasal Cannula Nasal Cannula Oxygen Flow Rate 4 2 12/19/24 14:33 12/19/24 15:30 12/19/24 15:30 Temperature 98.4 F Pulse Rate 80 72 Respiratory Rate 16 20 Blood Pressure 126/49 L Pulse Oximetry 91 94 Oxygen Delivery Nasal Cannula Oxygen Flow Rate 3 12/19/24 15:40 12/19/24 20:11 12/19/24 20:33 Temperature 97.9 F Pulse Rate 77 72 75 Respiratory Rate 20 20 20 Blood Pressure 133/48 L Pulse Oximetry 91 Oxygen Delivery Oxygen Flow Rate 12/19/24 20:36 12/19/24 20:45 12/19/24 20:50 Temperature Pulse Rate 76 75 Respiratory Rate 20 Blood Pressure Pulse Oximetry 94 Oxygen Delivery Nasal Cannula Oxygen Flow Rate 2 12/19/24 20:50 12/19/24 21:35 12/19/24 22:58 Temperature Pulse Rate 75 75 Respiratory Rate 18 Blood Pressure Pulse Oximetry 94 95 Oxygen Delivery Nasal Cannula BiPAP Oxygen Flow Rate 2 12/20/24 04:00 12/20/24 05:17 Temperature 97.7 F Pulse Rate 66 60 Respiratory Rate 15 20 Blood Pressure 123/52 L Pulse Oximetry 97 96 Oxygen Delivery BiPAP Oxygen Flow Rate Intake/Output Intake/Output: Intake & Output 12/17/24 12/18/24 12/19/24 12/20/24 23:59 23:59 23:59 23:59 Intake Total 1100 1790 810 550 Output Total 475 1022 2300 300 Balance 625 378 -1490 250 Meds/Results Medications: Active Medications Generic Name Dose Route Start Last Admin Trade Name Freq PRN Reason Stop Dose Admin Acetaminophen 650 mg 12/15/24 15:19 12/17/24 21:23 Acetaminophen 325 Mg Tablet PO 650 mg Q4H PRN Administration Mild Pain (1-3) or Fever Hydrocodone Bitart/Acetaminophen 1 tab 12/15/24 22:01 Hydrocodone/Acetaminophen (*Crx) 5-325 Mg Tablet PO Q6H PRN Pain Rated 7-10 Albuterol/Ipratropium 3 ml 12/16/24 02:00 12/20/24 07:40 Ipratropium 0.5 Mg/Albuterol Sulfate 2.5 Mg Ampul.Neb 3 Ml INHALATION 3 ml Q6HRT ANA Administration Alprazolam 0.25 mg 12/15/24 22:01 12/20/24 05:00 Alprazolam (*Crx) 0.25 Mg Tablet PO 0.25 mg TID PRN Administration anxiety Empagliflozin 10 mg 12/16/24 09:00 12/19/24 09:41 Empagliflozin 10 Mg Tablet PO 10 mg DAILY ANA Administration Enoxaparin Sodium 40 mg 12/16/24 09:00 12/19/24 09:39 Enoxaparin 40 Mg/0.4 Ml Syringe SUB-Q 40 mg DAILY ANA Administration Famotidine 40 mg 12/15/24 22:05 12/19/24 20:51 Famotidine 20 Mg Tablet PO 40 mg QHS ANA Administration Fentanyl 12 mcg 12/20/24 09:00 Fentanyl (*Crx) 12 Mcg Patch TRANSDERM Q72HR ANA Flecainide Acetate 100 mg 12/16/24 09:00 12/19/24 20:50 Flecainide Acetate 100 Mg Tablet PO 100 mg Q12HR ANA Administration Furosemide 20 mg 12/20/24 09:00 Furosemide 20 Mg Tablet PO DAILY ANA Gabapentin 300 mg 12/16/24 09:00 12/19/24 16:35 Gabapentin 300 Mg Capsule PO 300 mg BID ANA Administration Cefepime HCl 2 gm in 50 mls @ 100 mls/hr 12/15/24 21:00 12/19/24 21:19 Maxipime 2 Gm/Ns 50 Ml IVPB Infused Q12HR ANA Infusion Lidocaine 1 patch 12/16/24 09:00 12/19/24 09:39 Lidocaine 5% Patch TRANSDERM 1 patch DAILY ANA Administration Magnesium Oxide 200 mg 12/16/24 09:00 12/19/24 09:41 Magnesium Oxide 200 Mg Tablet PO 200 mg DAILY ANA Administration Metoprolol Succinate 25 mg 12/16/24 21:00 12/19/24 20:50 Metoprolol Succinate Ext Rel 25 Mg Tabcr PO 25 mg QHS ANA Administration Mirtazapine 7.5 mg 12/15/24 22:05 12/19/24 20:50 Mirtazapine 7.5 Mg Tablet PO 7.5 mg QHS ANA Administration Multivitamins Therapeutic 1 tablet 12/16/24 09:00 12/19/24 09:41 Multivitamins Therapeutic Tab (*Bkc) PO 1 tablet DAILY ANA Administration Ondansetron HCl 4 mg 12/15/24 15:19 Ondansetron Inj 4 Mg/2 Ml Vial IV PUSH Q4H PRN Nausea Sacubitril/Valsartan 1 tab 12/16/24 09:00 12/19/24 20:51 Sacubitril/Valsartan 24-26 Mg Tablet PO 1 tab Q12HR ANA Administration Sertraline HCl 50 mg 12/16/24 09:00 12/19/24 09:41 Sertraline Hcl 50 Mg Tablet PO 50 mg DAILY ANA Administration Spironolactone 25 mg 12/18/24 11:00 12/19/24 09:41 Spironolactone 25 Mg Tablet PO 25 mg QAM [facility] Administration Vitamin D 1,000 units 12/16/24 09:00 12/19/24 09:40 Cholecalciferol 1,000 Units Tablet PO 1,000 units DAILY ANA Administration Radiology Results: ITS Impressions Wrist X-Ray 12/15/24 12:55 IMPRESSION: 1. Nondisplaced avulsion fractures of the ulnar styloid. 2. Age-indeterminate nondisplaced fracture of radial styloid. 3. Small bone fragment dorsal to the carpus on the lateral view, which may be an avulsion fracture of dorsal pole of triquetrum. 4. Polyarticular osteoarthritis. Head CT 12/15/24 17:34 Impression: No acute intracranial hemorrhage or suspicious mass effect. Chest X-Ray 12/17/24 06:21 Impression: Probable mild bibasilar pulmonary edema and minimal pleural effusions. Underlying COPD pattern. Labs Labs: Laboratory Results - last 24 hr 12/20/24 12/20/24 04:36 06:00 WBC 5.5 RBC 3.56 L Hgb 10.3 L Hct 33.9 L MCV 95.2 MCH 28.9 MCHC 30.4 L RDW 14.2 Plt Count 176 MPV 9.7 Puncture Site Right radial ABG pH 7.443 ABG pCO2 55.6 H ABG pO2 76.1 L ABG PO2/FiO2 Ratio 2.72 ABG HCO3 37.2 H ABG O2 Saturation 95.4 ABG O2 Content 15.8 L ABG Base Excess 11.2 A-a Gradient 57.9 Oxyhemoglobin 94.2 Total Hemoglobin 11.9 L O2 Delivery Device Other device O2 Liters/Min Not Reportable FiO2 28 Sodium 135 L Potassium 3.9 Chloride 92 L Carbon Dioxide > 40 H Anion Gap BUN 19 H Creatinine 0.50 L Estim Creat Clear Calc 61 Estimated GFR > 60 Glucose 100 Calcium 8.4 Quality VTE Prophylaxis VTE prophylaxis: pharmacologic ordered (Lovenox 40 mg subQ daily.)
[2024-12-20] MEDS: MULTIVITAMINS THERAPEUTIC TAB (*BKC) 1 TABLET PO (08:14)
[2024-12-20] MEDS: MAGNESIUM OXIDE 200 MG TABLET PO (08:14)
[2024-12-20] MEDS: SACUBITRIL/VALSARTAN 24-26 MG TABLET 1 TAB PO ×2 (08:14→21:17)
[2024-12-20] MEDS: GABAPENTIN 300 MG CAPSULE PO ×2 (08:14→21:17)
[2024-12-20] MEDS: EMPAGLIFLOZIN 10 MG TABLET PO (08:14)
[2024-12-20] MEDS: FLECAINIDE ACETATE 100 MG TABLET PO ×2 (08:14→21:14)
[2024-12-20] MEDS: CHOLECALCIFEROL 1,000 UNITS TABLET 1000 UNITS PO (08:14)
[2024-12-20] MEDS: FUROSEMIDE 20 MG TABLET PO (08:14)
[2024-12-20] MEDS: SPIRONOLACTONE 25 MG TABLET PO (08:14)
[2024-12-20] MEDS: ENOXAPARIN 40 MG/0.4 ML SYRINGE SUB-Q (08:16)
[2024-12-20] MEDS: SERTRALINE HCL 50 MG TABLET PO (08:16)
[2024-12-20] MEDS: CEFEPIME 2 GM/NS 50 ML 2 GM/50 ML BAG IVPB ×2 (08:17→21:07)
[2024-12-20] MEDS: fentaNYL (*CRX) 12 MCG PATCH TRANSDERM (08:21)
[2024-12-20] MEDS: ONDANSETRON INJ 4 MG/2 ML VIAL IV PUSH (13:29)
--- NOTE | 2024-12-20 15:07 | PM.PNPUL ---
Progress Note: A&P Assessment and Plan (1) Acute on chronic respiratory failure with hypoxia and hypercapnia: Code(s): J96.21 - Acute and chronic respiratory failure with hypoxia; J96.22 - Acute and chronic respiratory failure with hypercapnia Status: Acute Assessment and Plan: Patient has chronic hypoxemic respiratory failure and was discharged in September of 2024 after she had influenza with no oxygen at rest and 2 with activity. More recently she has required 2 L at rest, 2 L with activity and 1 L with sleep. Recently admitted to [facility] on 12/04/2024 through 12/06/2024 for COPD exacerbation and discharged on azithromycin and methylprednisolone. Blood gas on 12/04/2024 of 7.31/59/57 on room air. 7 hours later BiPAP blood gas 7.31/51/139 on BiPAP 12/6 and 45% FiO2. Currently patient admitted to the hospital with shortness of breath and improved now back to baseline. 12/19/24 patient had an ABG on 1 L off of BiPAP for greater than 24 hours with a pH of 7.45/58/61. Patient has chronic hypercarbic respiratory failure from her COPD and would benefit from noninvasive ventilation to prevent disease progression and further hospitalizations. 12/15/2024: Patient presented to the emergency department with shortness of breath and altered mental status Related to fentanyl patch, fluid overload, and possible bronchitis-pneumonia with ABG on BiPAP 12/6 30% was 7.29/78 / less than 27. Etiology of acute on chronic respiratory failure with hypoxia and hypercarbia includes: Fluid overload, COPD, bronchiectasis, narcotic use, and possible respiratory infection. Plan: patient tells me that she had a very difficult time wearing the BiPAP because the pressures were high and she had to take the machine off and she cannot rest with this per mode. Currently patient is on 1 L nasal cannula saturations 92-94%. Goal saturation 90-94%. I will check an overnight oximetry tonight on 1 L nasal cannula to assess for nocturnal hypoxemia. Currently the patient is awake and mentating. I will discontinue the BiPAP tonight and place her on 1 L nasal cannula oxygen and check a blood gas at off of BiPAP for 24 hours tomorrow morning. Regarding her bronchiectasis the patient has a compression fracture in her back and up pathologic rib fracture and will discontinue vest therapy at this time. Will continue Cornet flutter valve, nebulized bronchodilators to aid in sputum expectoration. Patient states she is not having trouble expectorating and I will not start guaifenesin. 12/18/2024: Overall the patient is improved but she still has increased dyspnea on exertion, increased dry cough. Patient slept well on 1 L nasal cannula. States her pain is well controlled. Patient had an overnight oximetry on 1 L with recording duration of 6 hours and 42 minutes. Average saturation 92%. Low saturation 78%. Time with saturation less than or equal to 88% was 49 minutes. Oxygen desaturation index 0.9. Patient is walking in the halls with physical therapy and had desaturations on 3 L. cumulative she is positive 200 mL since admission. Weight today is 66 kg. Continues on Lasix 40 IV q.day. plan: Patient is not having any phlegm production which is new for her. She has use she makes per phlegm every day. Patient has been off of BiPAP for 24 hours and will obtain ABG to assess for hypercarbic respiratory failure. Will perform overnight oximetry on 2 L tonight. if she remains clinically stable possible discharge on 12/19/2024. later in the day patient had an ABG on 1 L off of BiPAP for greater than 24 hours with a pH of 7.45/58/61. 12/19/2024: Patient tells me she is much much better. Overall she feels she is breathing back at her baseline. She has minimal shortness of breath but some unsteadiness with ambulation. She did ambulate 600 ft with 2 L nasal cannula. She denies cough, phlegm, hemoptysis or wheezing. Overall she says she slept well on 2 L nasal cannula. She did say that her oxygen came off twice during the night. Overnight oximetry on 2 L with recording duration of 7 hours and 37 minutes, average saturation 94%. Low saturation 75%, time with saturation less than or equal to 88% was 48 minutes. Oxygen desaturation index 3.9. Plan: Patient has chronic hypercarbic respiratory failure from her COPD and would benefit from noninvasive ventilation. I spoke with her business office representative, Dr. Flynn, and I will initiate home noninvasive ventilation through [employer] (her DME). 12/20/2024: She had 6 hours on AVAPS last night, has anxiety, hesitation about using at home. I recommend staying another night to continue use at night and with naps, check mask fit. Her goal is to get off fentanyl patch, manage pain with gabapentin, take as few medications as possible; get out, start Ibrance for met breast cancer. . (2) CHF (congestive heart failure): Qualifiers: Heart failure chronicity: acute on chronic Heart failure type: combined systolic and diastolic Qualified Code(s): I50.43 - Acute on chronic combined systolic (congestive) and diastolic (congestive) heart failure Code(s): I50.9 - Heart failure, unspecified Status: Acute Assessment and Plan: 12/17/24: Patient presents with worsening shortness of breath, worsening hypoxia, chest x-ray with congestion, BNP 3230. Patient has been treated with IV Lasix and she is clinically improved and her edema has decreased. Plan: Patient has made a rather quick recovery and I suspect the majority of her problem was related to fluid overload. Agree with diuresis as tolerated by her cardiac and renal systems per Cardiology and the hospitalist team. Currently she is on Lasix 40 IV q.day. her weight today is 65.8 with an admission weight of 65 kg. Of note her discharge weight on 12/10/2024 was 60.5 kg. Later in the day echocardiogram with EF 55-60, grade 1 diastolic dysfunction, normal RV size and function, moderately enlarged right atrium, PASP 39. 12/18/2024: BNP improved to 651. Plan: Agree with as aggressive diuresis as tolerated by cardiac and renal system per Cardiology and hospitalist team. Currently she is on Lasix 40 IV q.day. 12/19/2024: Patient is breathing back at her baseline. She was +768 mL yesterday, cumulative she has +268 since admission. Her weight today is 66 kg with an admission weight of 65. Plan: Cardiology following his decreased her Lasix to 20 mg p.o. q.day. continue Entresto 24-26 and 1 tablet q.12 hours. Continue metoprolol 25 q.h.s.. Continue flecainide 100 mg p.o. q.12 hours. Continue spironolactone 25 q.a.m.. 12/20/2024; she tells me that she is going home on Lasix 20 mg once a day. Wt down 1.1 kg, 64.9kg. (3) Chronic obstructive pulmonary disease, unspecified: Code(s): J44.9 - Chronic obstructive pulmonary disease, unspecified Status: Acute Assessment and Plan: Patient has remote tobacco use, carries a diagnosis of COPD by her current business office representative and is maintained on Anoro Ellipta at 1 puff q.day and rescue albuterol DuoNebs which she takes 1 time a week. 12/17/2024: Currently the patient has no wheezing, no change in her phlegm volume or production and no cough. I do not think she has a COPD exacerbation. Plan: I will continue DuoNebs q.6 hours at this time. I will discontinue her Anoro Ellipta as she is on maximal beta agonist and muscarinic antagonists with the DuoNebs. I see no need for inhaled steroids or systemic steroids at this time. Goal saturation 90-94%. Wean oxygen accordingly. Patient may have a pneumonia or bronchitis and she has improved and I will contnue cefepime and azithromycin both day 3. 12/18/2024: White blood cell count 10.0, creatinine 0.83. she has squeaks and crackles in her lower lobes. no wheezing today. 1 L nasal cannula saturations 93%. Plan: Continue DuoNebs q.6 hours. Goal saturation 90-94%. she will need home O2 assessment prior to discharge. 12/19/24: Patient states she is breathing back to her baseline. She is afebrile. White blood cell count 5.2. No wheezing on exam. Plan: Continue albuterol and ipratropium nebulizers q.6 hours. Continue cefepime, day 5. Continue azithromycin, day 5 and will discontinue after today's dose. Home O2 assessment on the day of discharge. 12/20/2024; Sat is now 95% on 2 L, could decrease. Home O2 eval yesterday = 2 L at rest, 4 L/min w/ exertion, 2 L/min with sleep. She tells me that she has some form of alpha-1 antitrypsin, had a (+) test but is not on replacement, suspect she has one abnormal gene. She had TB back in the day, was not sick with it; this is how she developed bronchiectasis. She has a vibratory vest at home, not using due to spine compression fracture. Will stop azithromycin, continue nebulized bronchodilators. Plan plan: Stay one more night, improve tolerance for AVAPS, mask, pressure, decrease anxiety with use. Discussed with pt and dtr at bedside. Subjective Date/time seen: 12/20/24 15:07 Interval history: 12/17/2024: This is a new pulmonary consult for acute on chronic hypoxemic and hypercarbic respiratory failure. 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 metastatic breast cancer with chronic pain, and HTN. Patient follows with business office representative Dr. Flynn, [facility] for the last 6 years. Patient has a follow-up appointment on 12/24/2024 with him. regarding her COPD she is maintained on Anoro Ellipta and rescue DuoNebs which she uses approximately 1 time a week. The patient was admitted to [facility] in September of 2024 with influenza. She was admitted for 5 days and on discharge she was told she needed no oxygen at rest and 2 L with activity. 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 She had a left-sided lumpectomy 01/30/2024 patient refused radiation therapy and endocrine therapy. Patient refused radiation therapy and refused endocrine therapy. PET scan 12/10/2024 showed avid lymph nodes left axilla, avid lesion left 5th rib, right scapula and the patient was to start Ibrance and anastrozole to start monthly Xgeva. If pain does not get any better then we will consider radiation oncology consultation or even kyphoplasty. 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 01/13/2022 sputum with Pseudomonas aeruginosa and fluorescens. 03/02/2021 sputum with GLORIA. 02/24/2021 sputum with GLORIA. patient was referred to [facility] and followed with them and perform serial sputums and the patient and family were told she did not have active infection and needed no treatment. She was last seen by them and 2021. After she was discharged in September of 2024 from influenza a she has never fully recovered back to her PD pre influenza state. She has required more oxygen and typically has been using 1 L during the day. Recently admitted to [facility] on 12/04/2024 through 12/06/2024 for COPD exacerbation and discharged on azithromycin and methylprednisolone. Blood gas on 12/04/2024 of 7.31/59/57 on room air. 7 hours later BiPAP blood gas 7.31/51/139 on BiPAP 12/6 and 45% FiO2. Patient completed her medications and was feeling better. She continued to have back pain and Fentanyl patch was started by PCP. On 12/08/2024 the patient developed worsening shortness of breath, leg swelling, increased oxygen requirements of 2 L at rest, 2 L with activity and 1 L at night. She denied any change in her cough or change in her chronic phlegm production. The PET no patch helped her pain go from a 8/10 to a 5 to 6/10. A on 12/11/2024 her fentanyl patch was increased to 37.5 and on 12/13 the patient had altered mental status with falling asleep and hallucinations. On 12/14/2024 the patient was weak, had shortness of breath and required 3 L oxygen but had no change in her cough or phlegm volume or change in color of her phlegm. On 12/15 in the morning the patient was lethargic and brought to the emergency department. 12/15/2024: Patient presented to the emergency department with shortness of breath and altered mental status. She finished her azithromycin on 11/13/2024 and her DuoNebs were also discontinued at that time. She is on narcotics for pain Patient was hypoxic at her facility and sent to the emergency department. She was A&O x2, chronically ill-appearing. Clear to auscultation. Afebrile. Blood pressure 161/84, heart rate 77, respirations 14. Patient was placed on BiPAP. White blood cell count 13.8, creatinine 0.62, eosinophils 0.3%. BNP 3230. ABG on BiPAP 12/6 30% was 7.29/78 / less than 27. chest x-ray with bibasilar interstitial infiltrates right lower lobe greater than left, pulmonary vascular redistribution, infiltrates and tenting of the right pleural space is new since 12/03/2024. Patient had radial and ulnar styloid fractures. her BiPAP rate was increased to 20, she was given IV Lasix, she was started on cefepime and vancomycin for possible healthcare associated pneumonia. Fentanyl was decreased. patient with a temperature of 38.4? at 4:00 p.m.. On 12/17/2023 shortness of breath is better today. She had nonproductive cough. No chest pain but pleuritic left posterior shoulder pain. weaned off BiPAP and now on 6 L. fluid status better with Lasix. Fever curve better. white blood cell count 10.0. ABG at 5 in the morning on BiPAP 12/6 and 30% with pH 7.37/67/66 12/18/2023: Vancomycin discontinued. Continue azithromycin for atypical coverage. Patient is afebrile since 12/15/2024. Procalcitonin 0.3, blood cultures negative. Chest x-ray with improved bibasilar interstitial alveolar infiltrates compared to 12/15/2024. Currently the patient Tells me that her breathing, cough, phlegm volume and phlegm color are much improved and a are the same as her baseline after influenza a infection. she was on room air during the day earlier but when she ambulated she had desaturations into the 70s and was placed on 3 L. When I enter the room she was on 3 L nasal cannula with saturations 95%. I decreased her to room air and after 7 minutes her saturations were 88% and I placed her back on 1 L and her saturations remain 92-94%. white blood cell count10.0, Cr 0.83, Weight is 65.8 with an admission weight of 65.0. Of note, weight was 60 point 5 kg on discharge on 12/10/2024. since admission she is -440 mL. Later in the day echocardiogram with EF 55-60, grade 1 diastolic dysfunction, normal RV size and function, moderately enlarged right atrium, PASP 39. 12/19/2023: Overall the patient is improved but she still has increased dyspnea on exertion, increased dry cough. Patient slept well on 1 L nasal cannula. White blood cell count 10.0, creatinine 0.83 BNP improved to 651. Patient had an overnight oximetry on 1 L with recording duration of 6 hours and 42 minutes. Average saturation 92%. Low saturation 78%. Time with saturation less than or equal to 88% was 49 minutes. Oxygen desaturation index 0.9. Patient is walking in the halls with physical therapy and had desaturations on 3 L. cumulative she is positive 200 mL since admission. Weight today is 66 kg. Continues on Lasix 40 IV q.day. later in the day patient had an ABG on 1 L off of BiPAP for greater than 24 hours with a pH of 7.45/58/61. 12/20/2023: Patient tells me she is much much better. Overall she feels she is breathing back at her baseline. She has minimal shortness of breath but some unsteadiness with ambulation. She did ambulate 600 ft with 2 L nasal cannula. She denies cough, phlegm, hemoptysis or wheezing. Overall she says she slept well on 2 L nasal cannula. She did say that her oxygen came off twice during the night. Overnight oximetry on 2 L with recording duration of 7 hours and 37 minutes, average saturation 94%. Low saturation 75%, time with saturation less than or equal to 88% was 48 minutes. Oxygen desaturation index 3.9. 12/20/2024: Dtr Berenice is present. The patient had an overnight oximetry while using AVAPS & 2 L O2 last night, tamara 76%, 3 min <=88%. am ABG 7.44/55/76/37 on 2 L/min, acceptable, improved compared to prior ABGs. Sitting up in bed, awake from 45 min nap. Had challenges wearing AVAPS last night, felt that mask was shmushing her upper nose; took Xanax when she woke to go to the bathroom, because she was anxious about putting the mask on again. Xanax helped, slept well the rest of the night. When she put the mask on after bathroom, she had a better fit and less leak compared to earlier in the night. DATA: 12/17/24: Summary 1. Left ventricular chamber dimension is normal. 2. Left ventricular systolic function is normal, estimated at 50-55%. 3. There is mildly increased left ventricular wall thickness. 4. Left ventricular septal wall motion is abnormal with septal motion related to bundle branch block. 5. The left ventricular diastolic function is grade I diastolic dysfunction. 6. Right ventricular systolic function is normal. 7. Left atrial chamber dimension is moderately enlarged. 8. Right atrial chamber dimension is moderately enlarged. 9. There is mild mitral valve regurgitation. 10. There is mild tricuspid valve regurgitation. 11. Estimated pulmonary arterial systolic pressure is 39 mmHg. 12. Normal inferior vena cava with >50% collapse upon inspiration consistent with normal right atrial pressure, 3 mmHg. Right Ventricle Right ventricular chamber dimension is normal. Right ventricular systolic function is normal. Right Atria Right atrial chamber dimension is moderately enlarged. Atrial Septum Intact interatrial septum visualized by color flow imaging. 12/03/2024: CLINICAL INDICATION: Shortness of breath and hypoxia. Personal history of breast cancer COMPARISON: None. Reference is made to a plain film evaluation of the thoracic spine dated 11/04/2024 and a PA and lateral radiograph of the chest dated 08/24/2024. FINDINGS/OBSERVATIONS: LUNG:Cylindrical and varicose bronchiectasis is identified within the bilateral lung johnson. No discrete consolidation, noncalcified pulmonary nodules or discrete lung mass is identified. Interstitial thickening is noted with a calcified nodule in the right axilla lower lobe suggesting prior granulomatous disease. HEART: The heart is of normal size, without pericardial effusion. MEDIASTINUM: Interval development of multiple lymph nodes within the mediastinum. Calcified lymph nodes within the right hilum, likely corresponding to the appearance on plain film evaluation. No pathologically enlarged or morphologically suspicious lymph nodes are identified within the right axilla, or within the soft tissues of the anterior chest wall. Redemonstration of the pathologically enlarged lymph node within the left axilla, consistent with patient's history.. SOFT TISSUES OF THE CHEST: Unremarkable. BONES OF THE CHEST: No acute fracture. No lytic or blastic lesions are identified. Anterior wedge compression of the the T6 vertebral body is redemonstrated, unchanged from 11/04/2024 plain film evaluation, but an interval change from plain film evaluation dated 08/24/2024. Given the increased attenuation within the T6 vertebral body, a pathologic fracture cannot be excluded. UPPER ABDOMEN: Limited evaluation without intravenous contrast. IMPRESSION: Redemonstration of the T6 vertebral body fracture which also demonstrates increased attenuation for which a pathologic fracture cannot be excluded. Interval development of the mediastinal lymphadenopathy, corresponding to the abnormality seen on plain film radiograph. Cylindrical and varicose bronchiectasis is also noted. 11/20/24: A. Left axillary lymph node, needle biopsy: - Metastatic adenocarcinoma consistent with history of breast primary B. Left axillary scar lesion, needle biopsy: - Metastatic adenocarcinoma consistent with history of breast primary 12/24/2020: CT scan report from [facility]. Clinical history: GLORIA complex. Comparison 02/25/2018. Fibro atelectasis in the right middle lobe and lingula unchanged. Bilateral bronchiectasis, most notable in the anterior lung zones unchanged. Cystic bronchiectasis in the superior segment of the right lower lobe again identified. Associated mucus plugging and bronchial wall thickening again identified. Bilateral scattered tree-in-bud opacifications are grossly unchanged. Calcified granuloma. No suspicious lung mass or consolidation. Biapical pleural parenchymal scarring. 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 Associated pleural thickening versus atelectasis. Small pulmonary on pulmonary nodules in these areas are not excluded Bronchiectasis, emphysematous change, and likely mucous plugging and multiple bronchi is noted. Subtle pulmonary nodules or endobronchial lesions are not excluded. Continued follow-up is recommended for surveillance. Follow-up in 3 months is recommended. Mild pleural thickening and/or consolidation in the right middle lobe and lingula. Review of Systems Review of Systems: All systems reviewed & are unremarkable except as noted in HPI and below Exam Narrative: GEN: Alert, oriented, not in distress. 95% on 2 L/min HEENT: pupils are equal, EOMI, symmetrical face; oral membranes moist, NECK: Trachea is midline CHEST: Equal air entry, symmetric excursion, few scattered crackles in bases CV: Regular S1S2 no m/g/r ABD : (+) bowel sounds Extremities : no clubbing, cyanosis, trace edema right hand from infiltrated IV PSYCH: normal thought and speech, gait not tested Objective Data Vital Signs Vital Signs: Vital Signs - 24 hr 12/19/24 15:30 12/19/24 15:30 12/19/24 15:40 Temperature Pulse Rate 72 77 Respiratory Rate 20 20 Blood Pressure Pulse Oximetry 94 Oxygen Delivery Nasal Cannula Oxygen Flow Rate 3 Fraction of Inspired Oxygen 12/19/24 20:11 12/19/24 20:33 12/19/24 20:36 Temperature 36.6 C Pulse Rate 72 75 Respiratory Rate 20 20 Blood Pressure 133/48 L Pulse Oximetry 91 94 Oxygen Delivery Nasal Cannula Oxygen Flow Rate 2 Fraction of Inspired Oxygen 12/19/24 20:45 12/19/24 20:50 12/19/24 20:50 Temperature Pulse Rate 76 75 75 Respiratory Rate 20 Blood Pressure Pulse Oximetry Oxygen Delivery Oxygen Flow Rate Fraction of Inspired Oxygen 12/19/24 21:35 12/19/24 22:58 12/20/24 04:00 Temperature Pulse Rate 75 66 Respiratory Rate 18 15 Blood Pressure Pulse Oximetry 94 95 97 Oxygen Delivery Nasal Cannula BiPAP BiPAP Oxygen Flow Rate 2 Fraction of Inspired Oxygen 12/20/24 05:17 12/20/24 07:40 12/20/24 07:40 Temperature 36.5 C Pulse Rate 60 68 Respiratory Rate 20 16 Blood Pressure 123/52 L Pulse Oximetry 96 95 Oxygen Delivery Nasal Cannula Oxygen Flow Rate 2 Fraction of Inspired Oxygen 28 12/20/24 07:47 12/20/24 08:14 12/20/24 13:59 Temperature Pulse Rate 63 60 Respiratory Rate 16 Blood Pressure Pulse Oximetry 95 Oxygen Delivery Nasal Cannula Oxygen Flow Rate 2 Fraction of Inspired Oxygen 28 12/20/24 13:59 12/20/24 14:10 Temperature Pulse Rate 81 68 Respiratory Rate 20 20 Blood Pressure Pulse Oximetry Oxygen Delivery Oxygen Flow Rate Fraction of Inspired Oxygen Intake/Output Intake/Output: Intake & Output 12/17/24 12/18/24 12/19/24 12/20/24 23:59 23:59 23:59 23:59 Intake Total 1100 1790 810 840 Output Total 475 1022 2300 600 Balance 625 018 -2050 240 Meds/Results Medications: Active Medications Generic Name Dose Route Start Last Admin Trade Name Freq PRN Reason Stop Dose Admin Acetaminophen 650 mg 12/15/24 15:19 12/17/24 21:23 Acetaminophen 325 Mg Tablet PO 650 mg Q4H PRN Administration Mild Pain (1-3) or Fever Hydrocodone Bitart/Acetaminophen 1 tab 12/15/24 22:01 Hydrocodone/Acetaminophen (*Crx) 5-325 Mg Tablet PO Q6H PRN Pain Rated 7-10 Albuterol/Ipratropium 3 ml 12/16/24 02:00 12/20/24 13:59 Ipratropium 0.5 Mg/Albuterol Sulfate 2.5 Mg Ampul.Neb 3 Ml INHALATION 3 ml Q6HRT ANA Administration Alprazolam 0.25 mg 12/15/24 22:01 12/20/24 05:00 Alprazolam (*Crx) 0.25 Mg Tablet PO 0.25 mg TID PRN Administration anxiety Empagliflozin 10 mg 12/16/24 09:00 12/20/24 08:14 Empagliflozin 10 Mg Tablet PO 10 mg DAILY ANA Administration Enoxaparin Sodium 40 mg 12/16/24 09:00 12/20/24 08:16 Enoxaparin 40 Mg/0.4 Ml Syringe SUB-Q 40 mg DAILY ANA Administration Famotidine 40 mg 12/15/24 22:05 12/19/24 20:51 Famotidine 20 Mg Tablet PO 40 mg QHS ANA Administration Fentanyl 12 mcg 12/20/24 09:00 12/20/24 08:21 Fentanyl (*Crx) 12 Mcg Patch TRANSDERM 12 mcg Q72HR ANA Administration Flecainide Acetate 100 mg 12/16/24 09:00 12/20/24 08:14 Flecainide Acetate 100 Mg Tablet PO 100 mg Q12HR ANA Administration Furosemide 20 mg 12/20/24 09:00 12/20/24 08:14 Furosemide 20 Mg Tablet PO 20 mg DAILY ANA Administration Gabapentin 300 mg 12/16/24 09:00 12/20/24 08:14 Gabapentin 300 Mg Capsule PO 300 mg BID ANA Administration Cefepime HCl 2 gm in 50 mls @ 100 mls/hr 12/15/24 21:00 12/20/24 08:47 Maxipime 2 Gm/Ns 50 Ml IVPB Infused Q12HR ANA Infusion Lidocaine 1 patch 12/16/24 09:00 12/20/24 08:16 Lidocaine 5% Patch TRANSDERM Not Given DAILY ANA Magnesium Oxide 200 mg 12/16/24 09:00 12/20/24 08:14 Magnesium Oxide 200 Mg Tablet PO 200 mg DAILY ANA Administration Metoprolol Succinate 25 mg 12/16/24 21:00 12/19/24 20:50 Metoprolol Succinate Ext Rel 25 Mg Tabcr PO 25 mg QHS ANA Administration Mirtazapine 7.5 mg 12/15/24 22:05 12/19/24 20:50 Mirtazapine 7.5 Mg Tablet PO 7.5 mg QHS ANA Administration Multivitamins Therapeutic 1 tablet 12/16/24 09:00 12/20/24 08:14 Multivitamins Therapeutic Tab (*Bkc) PO 1 tablet DAILY ANA Administration Ondansetron HCl 4 mg 12/15/24 15:19 12/20/24 13:29 Ondansetron Inj 4 Mg/2 Ml Vial IV PUSH 4 mg Q4H PRN Administration Nausea Sacubitril/Valsartan 1 tab 12/16/24 09:00 12/20/24 08:14 Sacubitril/Valsartan 24-26 Mg Tablet PO 1 tab Q12HR ANA Administration Sertraline HCl 50 mg 12/16/24 09:00 12/20/24 08:16 Sertraline Hcl 50 Mg Tablet PO 50 mg DAILY ANA Administration Spironolactone 25 mg 12/18/24 11:00 12/20/24 08:14 Spironolactone 25 Mg Tablet PO 25 mg QAM ANA Administration Vitamin D 1,000 units 12/16/24 09:00 12/20/24 08:14 Cholecalciferol 1,000 Units Tablet PO 1,000 units DAILY ANA Administration Radiology Results: ITS Impressions Wrist X-Ray 12/15/24 12:55 IMPRESSION: 1. Nondisplaced avulsion fractures of the ulnar styloid. 2. Age-indeterminate nondisplaced fracture of radial styloid. 3. Small bone fragment dorsal to the carpus on the lateral view, which may be an avulsion fracture of dorsal pole of triquetrum. 4. Polyarticular osteoarthritis. Head CT 12/15/24 17:34 Impression: No acute intracranial hemorrhage or suspicious mass effect. Chest X-Ray 12/17/24 06:21 Impression: Probable mild bibasilar pulmonary edema and minimal pleural effusions. Underlying COPD pattern. Labs Labs: Laboratory Results - last 24 hr 12/20/24 12/20/24 04:36 06:00 WBC 5.5 RBC 3.56 L Hgb 10.3 L Hct 33.9 L MCV 95.2 MCH 28.9 MCHC 30.4 L RDW 14.2 Plt Count 176 MPV 9.7 Puncture Site Right radial ABG pH 7.443 ABG pCO2 55.6 H ABG pO2 76.1 L ABG PO2/FiO2 Ratio 2.72 ABG HCO3 37.2 H ABG O2 Saturation 95.4 ABG O2 Content 15.8 L ABG Base Excess 11.2 A-a Gradient 57.9 Oxyhemoglobin 94.2 Total Hemoglobin 11.9 L O2 Delivery Device Other device O2 Liters/Min Not Reportable FiO2 28 Sodium 135 L Potassium 3.9 Chloride 92 L Carbon Dioxide > 40 H Anion Gap BUN 19 H Creatinine 0.50 L Estim Creat Clear Calc 61 Estimated GFR > 60 Glucose 100 Calcium 8.4
--- NOTE | 2024-12-20 15:18 | P.DS_ITS ---
DS: Admitting Diagnosis Discharge Date 12/21/24 Admitting Diagnosis SOB, chf, pneumonia, CO2 retension DS: Discharge Diagnosis Discharge Diagnosis (1) Acute on chronic respiratory failure with hypoxia and hypercapnia: Code(s): J96.21 - Acute and chronic respiratory failure with hypoxia; J96.22 - Acute and chronic respiratory failure with hypercapnia Status: Acute Assessment and Plan: Patient with acute on chronic respiratory failure. multifactorial acute on chronic s/d CHF exacerbation with PNA and possibly interstitial lung disease/COPD. Patient also with bronchiectasis and MAC history; she has been unable to tolerate vest therapy well at home. DC vest Also consider related to hypopnea related to over medication from narcotics - was getting fentanyl patch for her chronic pain. Weaned off Bipap and now on 2lit O2 saturation 93% Plan for initiating home noninvasive ventilation Fluid status much better with lasix. Continue nebulizer treatments. Continue schedule vest therapy as tolerated. Continue BiPAP at night and with naps; okay to use as needed during the day if feeling SOB. completed cefepime MRSA negative. COVID, RSV and influenza PCR negative. PCT 0.3. BCx NGTD. LAsix change to p.o., Entresto, metoprolol. spironolactone Cardiology team on board Pulmonary team on board (2) Sepsis: Qualifiers: Acute respiratory failure type: with hypercapnia Sepsis acute organ dysfunction status: with acute organ dysfunction Sepsis type: sepsis due to unspecified organism Severe sepsis acute organ dysfunction type: acute respiratory failure Severe sepsis shock status: without septic shock Qualified Code(s): A41.9 - Sepsis, unspecified organism; R65.20 - Severe sepsis without septic shock; J96.02 - Acute respiratory failure with hypercapnia Code(s): A41.9 - Sepsis, unspecified organism Status: Acute Assessment and Plan: As above. Related to PNA (3) CHF (congestive heart failure): Qualifiers: Heart failure chronicity: acute on chronic Heart failure type: combined systolic and diastolic Qualified Code(s): I50.43 - Acute on chronic combined systolic (congestive) and diastolic (congestive) heart failure Code(s): I50.9 - Heart failure, unspecified Status: Acute Assessment and Plan: As above. Echo in 08/29/24 showing normal LV size, mild LV systolic dysfunction, EF 40-45% Lasixpo (4) Pneumonia: Qualifiers: Laterality: bilateral Lung location: unspecified part of lung Pneumonia type: due to unspecified organism Qualified Code(s): J18.9 - Pneumonia, unspecified organism Code(s): J18.9 - Pneumonia, unspecified organism Status: Acute Assessment and Plan: As above. (5) Invasive ductal carcinoma of left breast: Code(s): C50.912 - Malignant neoplasm of unspecified site of left female breast Status: Acute Assessment and Plan: Patietn with known breast CA. Recent PET scan 12/10/24 showing increased uptake in the lymph nodes at the left axilla extending to lateral left breast consistent with local metastatic disease, increased uptake with subtle lytic lesions in the left 5th rib and right scapula. Mild diffuse uptake associated with T6 and T7 compression fractures and fractures of the immediately adjacent posterior right 6th and 8th rib. Cannot exclude pathological fractures. Supportive care. Pain control Follow-up with Oncology as outpatient (6) Cancer, metastatic to bone: Code(s): C79.51 - Secondary malignant neoplasm of bone Status: Acute Assessment and Plan: As above (7) Left radial head fracture: Qualifiers: Encounter type: initial encounter Fracture alignment: nondisplaced Fracture type: closed Qualified Code(s): S52.125A - Nondisplaced fracture of head of left radius, initial encounter for closed fracture Code(s): S52.122A - Displaced fracture of head of left radius, initial encounter for closed fracture Status: Deleted Assessment and Plan: Patient's left radial and ulnar fractures likely related to her fall that oc curred before her last hospitalization. Her wrist is currently splinted. Orthopedic surgery has been consulted. plan for conservative management Will elevate extremity to help reduce edema. Continue supportive care. (8) Left ulnar fracture: Qualifiers: Encounter type: initial encounter Fracture alignment: nondisplaced Fracture type: closed Ulna location: styloid process Qualified Code(s): S52.615A - Nondisplaced fracture of left ulna styloid process, initial encounter for closed fracture Code(s): S52.202A - Unspecified fracture of shaft of left ulna, initial encounter for closed fracture Status: Acute Assessment and Plan: As above Plan DVT prophyalxis - Lovenox Code status - DNR DS: Summary Hospital Course Hospital Course: 84yo female with combined systolic and diastolic CHF, COPD with chronic hypoxic hypercapnic respiratory failure on home O2 of 2 L, chronic MAC, and 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 SOB better today. has a nonproductive cough. Hx of pseudomonas infection. No CP but has pleuritic left posterior shoulder pain. Weaned to 6L. The facial edema is better. 12/17/24 Breathing improving but still needs 6l. Bilateral edema improving. Continue BIPAP as needed and at night 12/18/24 Oxygen saturation 92% on 2 L oxygen. Denies any chest pain, abdominal pain, nausea vomiting. Discussed with pulmonary team. Plan for desat study on 2 L oxygen tonight. DC vest. Cardiology team on board. Continue with Lasix, Entresto and Jardiance. 12/19/24 lasix changed to 20 mg daily Patient has chronic hypercarbic respiratory failure . Pulmonary Team will initiate home noninvasive ventilation. 12/21/24 Patient was seen examined at bedside. She feels fine. Denies any chest pain. Abdominal pain, nausea vomiting. Breathing improving Decreased fentanyl patch to 12.5 yesterday. Patient requesting to DC fentanyl patch because make her very sleepy pulmonary team on board. Will discharge patient home. she needs to use AVAp with 2 lit O2 Time Spent with Patient Time attestation: Total time spent providing and/or coordinating discharge services: Exam Narrative: 98.7 94/40 73 20 96% HFNC Gen - NARD Chest - inspiratory rhonchi in the mid and lower lung johnson. CV - RRR S1/S2; Abd - soft, NT/ND, +BS Ext -no zbigniew-ankle edema. Neuro - alert and appropriate Psych - pleasant and cooperative Skin - warm and dry Const: Other: well-developed well-nourished, elderly, debilitated HENMT: Other: Mucous membranes are ok, no oral pharyngeal erythema, fair dentition, head is normocephalic atraumatic Eyes: Other: pupils are equal and reactive with evidence of bilateral lens implants Neck: Other: No JVD, no lymphadenopathy Resp: Other: clear lungs Cardio: Other: Regular rate, regular rhythm, trace bilateral radial pedal pulses GI: Other: Soft, nontender, nondistended, positive bowel sounds Back/Spine/Pelvis: Other: Thoracic kyphosis Skin: Other: Warm to touch, non jaundice, mild pallor Neuro: Other: Alert oriented x4, speech is clear, no facial asymmetry, no localizing neurologic deficits noted during the course of conversation Extrem: Other: , left upper extremity has splint in place, no lower extremity edema bilaterally Psych: Other: Appropriate mood and affect, pleasant and cooperative, judgment and insight intact DS: Data Data Completed and Pending Labs on day of discharge: Labs from last 24 hours 12/20/24 12/20/24 06:00 04:36 WBC 5.5 RBC 3.56 L Hgb 10.3 L Hct 33.9 L MCV 95.2 MCH 28.9 MCHC 30.4 L RDW 14.2 Plt Count 176 MPV 9.7 Puncture Site Right radial ABG pH 7.443 ABG pCO2 55.6 H ABG pO2 76.1 L ABG PO2/FiO2 Ratio 2.72 ABG HCO3 37.2 H ABG O2 Saturation 95.4 ABG O2 Content 15.8 L ABG Base Excess 11.2 A-a Gradient 57.9 Oxyhemoglobin 94.2 Total Hemoglobin 11.9 L O2 Delivery Device Other device O2 Liters/Min Not Reportable FiO2 28 Sodium 135 L Potassium 3.9 Chloride 92 L Carbon Dioxide > 40 H Anion Gap BUN 19 H Creatinine 0.50 L Estim Creat Clear Calc 61 Estimated GFR > 60 Glucose 100 Calcium 8.4 Preliminary micro results at discharge 12/15/24 12:09 Blood Culture - Preliminary Blood 12/15/24 13:21 Blood Culture - Preliminary Blood Discharge Plan Discharge Consulting providers: Vladislav Jean; Pawan Solis; Ish Vidal Discharging Clinician: Perez Gaitan Anticipated Discharge Date/Time: 12/21/24 11:32 Patient Disposition: Home Health Service Activity: as tolerated Diet: heart healthy Discharge Instructions: Per Care Coordination, patient to discharge with [facility] ([phone]) for PT/OT and long-term services. Agency will call to arrange initial visit. Lasix 20mg once daily at home after discharge. -WOLFGANG hose for trace ankle edema -As for heart failure GDMT, continue Entresto, Jardiance, Toprol. -Continue Flecainide and Toprol follow PCP in one week. cardiology/pulmonary/oncology/ orthopedic as outpatint Patient Instructions: Antibiotic Form, Fentanyl (Absorbed through the skin), Heart Failure (DC), Fall Prevention (DC), Acute Respiratory Failure (GEN) Patient Language: [place] Stand Alone Forms: General Discharge Information Follow-up/Referrals: Vladislav Jean MD [Physician] - Pawan Echevraria MD [Primary Care Provider] - Ish Vidal MD [Physician] - Pawan Solis MD [Physician] - Discharge Medications: New ipratropium-albuterol 0.5 mg-3 mg(2.5 mg base)/3 mL Solution For Nebulization 3 ml inhalation Q6HRT Qty: 180 0RF spironolactone 25 mg Tablet 25 mg PO QAM Qty: 30 0RF Continued Anoro Ellipta 62.5-25 mcg/actuation blister with device 1 inh inhalation DAILY metoprolol succinate 25 mg tablet extended release 24 hr 25 mg PO QHS sodium chloride 3 % solution for nebulization 25 ml inhalation Q4-6H PRN (Reason: sob/wheezing) albuterol sulfate 2.5 mg /3 mL (0.083 %) solution for nebulization 2.5 mg continuous nebulization Q6H PRN (Reason: sob/wheezing) famotidine 40 mg tablet 40 mg PO QHS Qty: 90 0RF mirtazapine 7.5 mg tablet 7.5 mg PO QHS Qty: 90 0RF Jardiance 10 mg tablet 10 mg PO DAILY sertraline 25 mg tablet 50 mg PO DAILY alprazolam 0.25 mg tablet 0.25 mg PO TID PRN (Reason: anxiety) Qty: 90 0RF albuterol sulfate [Ventolin HFA] 90 mcg/actuation HFA aerosol inhaler 2 inh inhalation Q4H PRN (Reason: shortness of breath or wheezing) Qty: 6.7 0RF Rx Instructions: Teva Entresto 24-26 mg tablet 1 tablet PO Q12H gabapentin 300 mg capsule 300 mg PO BID Qty: 60 0RF Rx Instructions: take 1 capsule at bedtime nightly for one week then change to twice daily. cholecalciferol (vitamin D3) 75 mcg (3,000 unit) Tablet 1,000 unit PO DAILY Alkadophilus 2 cap PO DAILY diclofenac potassium 50 mg tablet 50 mg PO Q12H PRN (Reason: pain) Rx Instructions: anti-inflammatory medication flecainide 100 mg tablet 100 mg PO Q12H Patient Comments: just Rx by bead flipper lidocaine [Lidoderm] 5 % Adhesive Patch,Medicated 1 patch transdermal DAILY Qty: 15 0RF Calcium Magnesium 500 mg calcium -250 mg Tablet 2 tablet PO DAILY magnesium 200 mg Tablet 200 mg PO DAILY multivitamin [Daily Multi-Vitamin] Tablet 1 tablet PO DAILY hydrocodone-acetaminophen 5-325 mg Tablet 1 tablet PO Q6H PRN (Reason: Pain Rated 4-6) Qty: 20 0RF ondansetron HCl 4 mg tablet 4 mg PO Q6H PRN (Reason: nausea and vomiting) Qty: 30 3RF Discontinued methylprednisolone 4 mg tablets,dose pack See Rx Instructions .ROUTE .COMPLEX Qty: 21 0RF Rx Instructions: orally per package directions fentanyl 37.5 mcg/hour patch 72 hour 1 patch transdermal Q72H Qty: 5 0RF Date of admission: 12/15/24 17:00 Primary Care Provider: Pawan Echevarria Admitting Provider: Bro Sweet Attending physician on admission: Perez Gaitan Condition: Stable Quality VTE Prophylaxis VTE prophylaxis: pharmacologic ordered (Lovenox 40 mg subQ daily.)
[2024-12-20] MEDS: FAMOTIDINE 20 MG TABLET 40 MG PO (21:14)
[2024-12-20] MEDS: MIRTAZAPINE 7.5 MG TABLET PO (21:16)
[2024-12-20] MEDS: METOPROLOL SUCCINATE EXT REL 25 MG TABCR PO (21:16)
[2024-12-21] VITALS (8 sets, daily range): BP systolic 100–128; BP diastolic 49–52; PULSE 61–87; RESP 18–20; TEMP 36.3; O2SAT 93–97
[2024-12-21] MEDS: IPRATROPIUM 0.5 MG/ALBUTEROL SULFATE 2.5 MG AMPUL.NEB 3 ML INHALATION ×3 (02:06→14:22)
[2024-12-21 05:50] LABS: Hematocrit 36.3 % (37.0-47.0); Hemoglobin 10.6 g/dL (12.0-15.0); Mean Corpuscular HGB Conc 29.2 g/dl (32-36); Mean Corpuscular Hemoglobin 28.8 pg (26-34); Mean Corpuscular Volume 98.6 fl (80-100); Mean Platelet Volume 10.2 fl (7.4-10.4); Platelet Count Result 193 k/mm3 (150-375); Red Blood Count 3.68 M/mm3 (4.2-5.4); Red Cell Distribution Width 14.4 % (11.5-14.5); White Blood Count 5.5 K/mm3 (4.5-10.0)
[2024-12-21 06:02] LABS: Anion Gap 6 mmol/L (4-12); Blood Urea Nitrogen 20 mg/dL (7-17); Calcium 8.6 mg/dL (8.4-10.2); Carbon Dioxide 35 mmol/L (22-30); Chloride 94 mmol/L (98-107); Estimated CRCL calculation 55 ml/min; Estimated Glomerular Filt Rate > 60; Glucose 95 mg/dL (65-110); Potassium 4.1 mmol/L (3.4-5.0); Sodium 135 mmol/L (137-145)
[2024-12-21] MEDS: GABAPENTIN 300 MG CAPSULE PO (09:45)
[2024-12-21] MEDS: EMPAGLIFLOZIN 10 MG TABLET PO (09:45)
[2024-12-21] MEDS: CHOLECALCIFEROL 1,000 UNITS TABLET 1000 UNITS PO (09:45)
[2024-12-21] MEDS: SERTRALINE HCL 50 MG TABLET PO (09:45)
[2024-12-21] MEDS: SACUBITRIL/VALSARTAN 24-26 MG TABLET 1 TAB PO (09:46)
[2024-12-21] MEDS: SPIRONOLACTONE 25 MG TABLET PO (09:46)
[2024-12-21] MEDS: FUROSEMIDE 20 MG TABLET PO (09:46)
[2024-12-21] MEDS: MAGNESIUM OXIDE 200 MG TABLET PO (09:46)
[2024-12-21] MEDS: CEFEPIME 2 GM/NS 50 ML 2 GM/50 ML BAG IVPB (09:47)
[2024-12-21] MEDS: ENOXAPARIN 40 MG/0.4 ML SYRINGE SUB-Q (09:47)
[2024-12-21] MEDS: FLECAINIDE ACETATE 100 MG TABLET PO (09:47)
[2024-12-21] MEDS: MULTIVITAMINS THERAPEUTIC TAB (*BKC) 1 TABLET PO (09:47)
--- NOTE | 2024-12-21 14:10 | PM.PNPUL ---
Progress Note: A&P Assessment and Plan (1) Acute on chronic respiratory failure with hypoxia and hypercapnia: Code(s): J96.21 - Acute and chronic respiratory failure with hypoxia; J96.22 - Acute and chronic respiratory failure with hypercapnia Status: Acute Assessment and Plan: Patient has chronic hypoxemic respiratory failure and was discharged in September of 2024 after she had influenza with no oxygen at rest and 2 with activity. More recently she has required 2 L at rest, 2 L with activity and 1 L with sleep. Recently admitted to [facility] on 12/04/2024 through 12/06/2024 for COPD exacerbation and discharged on azithromycin and methylprednisolone. Blood gas on 12/04/2024 of 7.31/59/57 on room air. 7 hours later BiPAP blood gas 7.31/51/139 on BiPAP 12/6 and 45% FiO2. Currently patient admitted to the hospital with shortness of breath and improved now back to baseline. 12/19/24 patient had an ABG on 1 L off of BiPAP for greater than 24 hours with a pH of 7.45/58/61. Patient has chronic hypercarbic respiratory failure from her COPD and would benefit from noninvasive ventilation to prevent disease progression and further hospitalizations. 12/15/2024: Patient presented to the emergency department with shortness of breath and altered mental status Related to fentanyl patch, fluid overload, and possible bronchitis-pneumonia with ABG on BiPAP 12/6 30% was 7.29/78 / less than 27. Etiology of acute on chronic respiratory failure with hypoxia and hypercarbia includes: Fluid overload, COPD, bronchiectasis, narcotic use, and possible respiratory infection. Plan: patient tells me that she had a very difficult time wearing the BiPAP because the pressures were high and she had to take the machine off and she cannot rest with this per mode. Currently patient is on 1 L nasal cannula saturations 92-94%. Goal saturation 90-94%. I will check an overnight oximetry tonight on 1 L nasal cannula to assess for nocturnal hypoxemia. Currently the patient is awake and mentating. I will discontinue the BiPAP tonight and place her on 1 L nasal cannula oxygen and check a blood gas at off of BiPAP for 24 hours tomorrow morning. Regarding her bronchiectasis the patient has a compression fracture in her back and up pathologic rib fracture and will discontinue vest therapy at this time. Will continue Cornet flutter valve, nebulized bronchodilators to aid in sputum expectoration. Patient states she is not having trouble expectorating and I will not start guaifenesin. 12/18/2024: Overall the patient is improved but she still has increased dyspnea on exertion, increased dry cough. Patient slept well on 1 L nasal cannula. States her pain is well controlled. Patient had an overnight oximetry on 1 L with recording duration of 6 hours and 42 minutes. Average saturation 92%. Low saturation 78%. Time with saturation less than or equal to 88% was 49 minutes. Oxygen desaturation index 0.9. Patient is walking in the halls with physical therapy and had desaturations on 3 L. cumulative she is positive 200 mL since admission. Weight today is 66 kg. Continues on Lasix 40 IV q.day. plan: Patient is not having any phlegm production which is new for her. She has use she makes per phlegm every day. Patient has been off of BiPAP for 24 hours and will obtain ABG to assess for hypercarbic respiratory failure. Will perform overnight oximetry on 2 L tonight. if she remains clinically stable possible discharge on 12/19/2024. later in the day patient had an ABG on 1 L off of BiPAP for greater than 24 hours with a pH of 7.45/58/61. 12/19/2024: Patient tells me she is much much better. Overall she feels she is breathing back at her baseline. She has minimal shortness of breath but some unsteadiness with ambulation. She did ambulate 600 ft with 2 L nasal cannula. She denies cough, phlegm, hemoptysis or wheezing. Overall she says she slept well on 2 L nasal cannula. She did say that her oxygen came off twice during the night. Overnight oximetry on 2 L with recording duration of 7 hours and 37 minutes, average saturation 94%. Low saturation 75%, time with saturation less than or equal to 88% was 48 minutes. Oxygen desaturation index 3.9. Plan: Patient has chronic hypercarbic respiratory failure from her COPD and would benefit from noninvasive ventilation. I spoke with her call center director, Dr. Flynn, and I will initiate home noninvasive ventilation through [employer] (her DME). 12/20/2024: She had 6 hours on AVAPS last night, has anxiety, hesitation about using at home. I recommend staying another night to continue use at night and with naps, check mask fit. Her goal is to get off fentanyl patch, manage pain with gabapentin, take as few medications as possible; get out, start Ibrance for met breast cancer. 12/21/24: She is using NIV without problems, slept well. . (2) CHF (congestive heart failure): Qualifiers: Heart failure chronicity: acute on chronic Heart failure type: combined systolic and diastolic Qualified Code(s): I50.43 - Acute on chronic combined systolic (congestive) and diastolic (congestive) heart failure Code(s): I50.9 - Heart failure, unspecified Status: Acute Assessment and Plan: 12/17/24: Patient presents with worsening shortness of breath, worsening hypoxia, chest x-ray with congestion, BNP 3230. Patient has been treated with IV Lasix and she is clinically improved and her edema has decreased. Plan: Patient has made a rather quick recovery and I suspect the majority of her problem was related to fluid overload. Agree with diuresis as tolerated by her cardiac and renal systems per Cardiology and the hospitalist team. Currently she is on Lasix 40 IV q.day. her weight today is 65.8 with an admission weight of 65 kg. Of note her discharge weight on 12/10/2024 was 60.5 kg. Later in the day echocardiogram with EF 55-60, grade 1 diastolic dysfunction, normal RV size and function, moderately enlarged right atrium, PASP 39. 12/18/2024: BNP improved to 651. Plan: Agree with as aggressive diuresis as tolerated by cardiac and renal system per Cardiology and hospitalist team. Currently she is on Lasix 40 IV q.day. 12/19/2024: Patient is breathing back at her baseline. She was +768 mL yesterday, cumulative she has +268 since admission. Her weight today is 66 kg with an admission weight of 65. Plan: Cardiology following his decreased her Lasix to 20 mg p.o. q.day. continue Entresto 24-26 and 1 tablet q.12 hours. Continue metoprolol 25 q.h.s.. Continue flecainide 100 mg p.o. q.12 hours. Continue spironolactone 25 q.a.m.. 12/20/2024; she tells me that she is going home on Lasix 20 mg once a day. Wt down 1.1 kg, 64.9kg. (3) Chronic obstructive pulmonary disease, unspecified: Code(s): J44.9 - Chronic obstructive pulmonary disease, unspecified Status: Acute Assessment and Plan: Patient has remote tobacco use, carries a diagnosis of COPD by her current call center director and is maintained on Anoro Ellipta at 1 puff q.day and rescue albuterol DuoNebs which she takes 1 time a week. 12/17/2024: Currently the patient has no wheezing, no change in her phlegm volume or production and no cough. I do not think she has a COPD exacerbation. Plan: I will continue DuoNebs q.6 hours at this time. I will discontinue her Anoro Ellipta as she is on maximal beta agonist and muscarinic antagonists with the DuoNebs. I see no need for inhaled steroids or systemic steroids at this time. Goal saturation 90-94%. Wean oxygen accordingly. Patient may have a pneumonia or bronchitis and she has improved and I will contnue cefepime and azithromycin both day 3. 12/18/2024: White blood cell count 10.0, creatinine 0.83. she has squeaks and crackles in her lower lobes. no wheezing today. 1 L nasal cannula saturations 93%. Plan: Continue DuoNebs q.6 hours. Goal saturation 90-94%. she will need home O2 assessment prior to discharge. 12/19/24: Patient states she is breathing back to her baseline. She is afebrile. White blood cell count 5.2. No wheezing on exam. Plan: Continue albuterol and ipratropium nebulizers q.6 hours. Continue cefepime, day 5. Continue azithromycin, day 5 and will discontinue after today's dose. Home O2 assessment on the day of discharge. 12/20/2024; Sat is now 95% on 2 L, could decrease. Home O2 eval yesterday = 2 L at rest, 4 L/min w/ exertion, 2 L/min with sleep. She tells me that she has some form of alpha-1 antitrypsin, had a (+) test but is not on replacement, suspect she has one abnormal gene. She had TB back in the day, was not sick with it; this is how she developed bronchiectasis. She has a vibratory vest at home, not using due to spine compression fracture. Will stop azithromycin, continue nebulized bronchodilators. 12/22/23: Has COPD, bronchiectasis; at home uses Anoro one puff a day, Plan plan: Ok to go home today, will get a non invasive ventilator, either Astral or Cheli, depending on availability by December 23 at her home. O2 use; 2 L at rest, 4 L with exertion, 2 L with sleep bled into the NIV. Info regarding oximeter use given. She will follow up with She will ask about pulmonary rehab at [facility]; improves strength, balance, endurance, quality of life. Meds: Anoro ONE puff a day. This is a home medication. Albuterol 0.5mg 3 ml in the nebulizer without ipratropium. Can use Q 6 hours p.r.n. shortness of breath. Do not use Duo-neb in the nebulizer. It has a similar medication which is on your Anoro Continue to use the Cornet vibratory valve p.r.n. to maintain clear airways. Follow up with Dr Abdon Flynn, pulmonary, not [facility] pulmonary doctors. OXIMETER It is recommended for you to obtain an oximeter. It should be a health grade device, not a sports grade device. We recommend [employer] brand or other health grade oximeter. The goal with using supplemental oxygen is to maintain a saturation between 88% and 94% while using supplemental oxygen. Use your oximeter while you are active. Check your saturation during exercise and 2-3 minutes after exercising while you are resting. Sometime saturation can decrease during recovery from exercise. Without oxygen, it is absolutely fine to have a saturation above 94% but it is not okay to use oxygen to get the saturation above 94%. If you are sitting quietly at rest and your saturation is 88% or below, wear O2. If you are sitting quietly at rest without O2 and your saturation is 90% or above, you do not have to use O2. If you are 95% on room air, do not wear O2. There are potential harms to having a saturation that is too high. More is not better. Buying an oximeter online can be much less expensive than buying from a drug store. Online, you may find an oximeter for $10-$20, compared to $50-$90 in a drug store. Your O2 prescription is 2 L at rest, 4 L with exertion, 2 L with sleep using your non-invasive ventilator. Use you NIV with naps and night time sleep. Feeling short of breath is not a good reason to increase O2 flow above your normal. Check you O2 saturation first. If your saturation is below 89% on 2 L at rest, you may increase the O2 flow 1 L at a time to improve your saturation to 90%. Another alternative is to put your NIV on with O2 at 2 L/min to increase your sat and decreased shortness of breath. You do not have to sleep to use it. Do not turn O2 up too fast. It may take 10 minutes for your O2 saturation to get to steady state. Cranking O2 up too high can lead to high O2 saturation AND high carbon dioxide levels. Your oximeter will not give you this information. Your only sign may be sleepiness or confusion. Subjective Date/time seen: 12/21/24 14:10 Interval history: 12/17/2024: This is a new pulmonary consult for acute on chronic hypoxemic and hypercarbic respiratory failure. 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 metastatic breast cancer with chronic pain, and HTN. Patient follows with call center director Dr. Flynn, [facility] for the last 6 years. Patient has a follow-up appointment on 12/24/2024 with him. regarding her COPD she is maintained on Anoro Ellipta and rescue DuoNebs which she uses approximately 1 time a week. The patient was admitted to [facility] in September of 2024 with influenza. She was admitted for 5 days and on discharge she was told she needed no oxygen at rest and 2 L with activity. 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 She had a left-sided lumpectomy 01/30/2024 patient refused radiation therapy and endocrine therapy. Patient refused radiation therapy and refused endocrine therapy. PET scan 12/10/2024 showed avid lymph nodes left axilla, avid lesion left 5th rib, right scapula and the patient was to start Ibrance and anastrozole to start monthly Xgeva. If pain does not get any better then we will consider radiation oncology consultation or even kyphoplasty. 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 01/13/2022 sputum with Pseudomonas aeruginosa and fluorescens. 03/02/2021 sputum with GLORIA. 02/24/2021 sputum with GLORIA. patient was referred to [facility] and followed with them and perform serial sputums and the patient and family were told she did not have active infection and needed no treatment. She was last seen by them and 2021. After she was discharged in September of 2024 from influenza a she has never fully recovered back to her PD pre influenza state. She has required more oxygen and typically has been using 1 L during the day. Recently admitted to [facility] on 12/04/2024 through 12/06/2024 for COPD exacerbation and discharged on azithromycin and methylprednisolone. Blood gas on 12/04/2024 of 7.31/59/57 on room air. 7 hours later BiPAP blood gas 7.31/51/139 on BiPAP 12/6 and 45% FiO2. Patient completed her medications and was feeling better. She continued to have back pain and Fentanyl patch was started by PCP. On 12/08/2024 the patient developed worsening shortness of breath, leg swelling, increased oxygen requirements of 2 L at rest, 2 L with activity and 1 L at night. She denied any change in her cough or change in her chronic phlegm production. The PET no patch helped her pain go from a 8/10 to a 5 to 6/10. A on 12/11/2024 her fentanyl patch was increased to 37.5 and on 12/13 the patient had altered mental status with falling asleep and hallucinations. On 12/14/2024 the patient was weak, had shortness of breath and required 3 L oxygen but had no change in her cough or phlegm volume or change in color of her phlegm. On 12/15 in the morning the patient was lethargic and brought to the emergency department. 12/15/2024: Patient presented to the emergency department with shortness of breath and altered mental status. She finished her azithromycin on 11/13/2024 and her DuoNebs were also discontinued at that time. She is on narcotics for pain Patient was hypoxic at her facility and sent to the emergency department. She was A&O x2, chronically ill-appearing. Clear to auscultation. Afebrile. Blood pressure 161/84, heart rate 77, respirations 14. Patient was placed on BiPAP. White blood cell count 13.8, creatinine 0.62, eosinophils 0.3%. BNP 3230. ABG on BiPAP 12/6 30% was 7.29/78 / less than 27. chest x-ray with bibasilar interstitial infiltrates right lower lobe greater than left, pulmonary vascular redistribution, infiltrates and tenting of the right pleural space is new since 12/03/2024. Patient had radial and ulnar styloid fractures. her BiPAP rate was increased to 20, she was given IV Lasix, she was started on cefepime and vancomycin for possible healthcare associated pneumonia. Fentanyl was decreased. patient with a temperature of 38.4? at 4:00 p.m.. On 12/17/2023 shortness of breath is better today. She had nonproductive cough. No chest pain but pleuritic left posterior shoulder pain. weaned off BiPAP and now on 6 L. fluid status better with Lasix. Fever curve better. white blood cell count 10.0. ABG at 5 in the morning on BiPAP 12/6 and 30% with pH 7.37/67/66 12/18/2023: Vancomycin discontinued. Continue azithromycin for atypical coverage. Patient is afebrile since 12/15/2024. Procalcitonin 0.3, blood cultures negative. Chest x-ray with improved bibasilar interstitial alveolar infiltrates compared to 12/15/2024. Currently the patient Tells me that her breathing, cough, phlegm volume and phlegm color are much improved and a are the same as her baseline after influenza a infection. she was on room air during the day earlier but when she ambulated she had desaturations into the 70s and was placed on 3 L. When I enter the room she was on 3 L nasal cannula with saturations 95%. I decreased her to room air and after 7 minutes her saturations were 88% and I placed her back on 1 L and her saturations remain 92-94%. white blood cell count10.0, Cr 0.83, Weight is 65.8 with an admission weight of 65.0. Of note, weight was 60 point 5 kg on discharge on 12/10/2024. since admission she is -440 mL. Later in the day echocardiogram with EF 55-60, grade 1 diastolic dysfunction, normal RV size and function, moderately enlarged right atrium, PASP 39. 12/19/2023: Overall the patient is improved but she still has increased dyspnea on exertion, increased dry cough. Patient slept well on 1 L nasal cannula. White blood cell count 10.0, creatinine 0.83 BNP improved to 651. Patient had an overnight oximetry on 1 L with recording duration of 6 hours and 42 minutes. Average saturation 92%. Low saturation 78%. Time with saturation less than or equal to 88% was 49 minutes. Oxygen desaturation index 0.9. Patient is walking in the halls with physical therapy and had desaturations on 3 L. cumulative she is positive 200 mL since admission. Weight today is 66 kg. Continues on Lasix 40 IV q.day. later in the day patient had an ABG on 1 L off of BiPAP for greater than 24 hours with a pH of 7.45/58/61. 12/20/2023: Patient tells me she is much much better. Overall she feels she is breathing back at her baseline. She has minimal shortness of breath but some unsteadiness with ambulation. She did ambulate 600 ft with 2 L nasal cannula. She denies cough, phlegm, hemoptysis or wheezing. Overall she says she slept well on 2 L nasal cannula. She did say that her oxygen came off twice during the night. Overnight oximetry on 2 L with recording duration of 7 hours and 37 minutes, average saturation 94%. Low saturation 75%, time with saturation less than or equal to 88% was 48 minutes. Oxygen desaturation index 3.9. 12/20/2024: Daughter Berenice is present. The patient had an overnight oximetry while using AVAPS & 2 L O2 last night, tamara 76%, 3 min <=88%. am ABG 7.44/55/76/37 on 2 L/min, acceptable, improved compared to prior ABGs. Sitting up in bed, awake from 45 min nap. Had challenges wearing AVAPS last night, felt that mask was shmushing her upper nose; took Xanax when she woke to go to the bathroom, because she was anxious about putting the mask on again. Xanax helped, slept well the rest of the night. When she put the mask on after bathroom, she had a better fit and less leak compared to earlier in the night. 12/21/2024: She had a successful night using NIV with 2 L/min O2. She used a small dose of alprazolam which helped with tolerating it. Mask fit well last night. No air leak. She is ready to go home. We talked about using O2, not over-using it, and I gave her written information about using an oximeter. More is not better. She is a candidate for pulmonary rehab as an out patient, lives close to [place], could ask Dr Flynn to order. DATA: 12/17/24: Summary 1. Left ventricular chamber dimension is normal. 2. Left ventricular systolic function is normal, estimated at 50-55%. 3. There is mildly increased left ventricular wall thickness. 4. Left ventricular septal wall motion is abnormal with septal motion related to bundle branch block. 5. The left ventricular diastolic function is grade I diastolic dysfunction. 6. Right ventricular systolic function is normal. 7. Left atrial chamber dimension is moderately enlarged. 8. Right atrial chamber dimension is moderately enlarged. 9. There is mild mitral valve regurgitation. 10. There is mild tricuspid valve regurgitation. 11. Estimated pulmonary arterial systolic pressure is 39 mmHg. 12. Normal inferior vena cava with >50% collapse upon inspiration consistent with normal right atrial pressure, 3 mmHg. Right Ventricle Right ventricular chamber dimension is normal. Right ventricular systolic function is normal. Right Atria Right atrial chamber dimension is moderately enlarged. Atrial Septum Intact interatrial septum visualized by color flow imaging. 12/03/2024: CLINICAL INDICATION: Shortness of breath and hypoxia. Personal history of breast cancer COMPARISON: None. Reference is made to a plain film evaluation of the thoracic spine dated 11/04/2024 and a PA and lateral radiograph of the chest dated 08/24/2024. FINDINGS/OBSERVATIONS: LUNG:Cylindrical and varicose bronchiectasis is identified within the bilateral lung johnson. No discrete consolidation, noncalcified pulmonary nodules or discrete lung mass is identified. Interstitial thickening is noted with a calcified nodule in the right axilla lower lobe suggesting prior granulomatous disease. HEART: The heart is of normal size, without pericardial effusion. MEDIASTINUM: Interval development of multiple lymph nodes within the mediastinum. Calcified lymph nodes within the right hilum, likely corresponding to the appearance on plain film evaluation. No pathologically enlarged or morphologically suspicious lymph nodes are identified within the right axilla, or within the soft tissues of the anterior chest wall. Redemonstration of the pathologically enlarged lymph node within the left axilla, consistent with patient's history.. SOFT TISSUES OF THE CHEST: Unremarkable. BONES OF THE CHEST: No acute fracture. No lytic or blastic lesions are identified. Anterior wedge compression of the the T6 vertebral body is redemonstrated, unchanged from 11/04/2024 plain film evaluation, but an interval change from plain film evaluation dated 08/24/2024. Given the increased attenuation within the T6 vertebral body, a pathologic fracture cannot be excluded. UPPER ABDOMEN: Limited evaluation without intravenous contrast. IMPRESSION: Redemonstration of the T6 vertebral body fracture which also demonstrates increased attenuation for which a pathologic fracture cannot be excluded. Interval development of the mediastinal lymphadenopathy, corresponding to the abnormality seen on plain film radiograph. Cylindrical and varicose bronchiectasis is also noted. 11/20/24: A. Left axillary lymph node, needle biopsy: - Metastatic adenocarcinoma consistent with history of breast primary B. Left axillary scar lesion, needle biopsy: - Metastatic adenocarcinoma consistent with history of breast primary 12/24/2020: CT scan report from [facility]. Clinical history: GLORIA complex. Comparison 02/25/2018. Fibro atelectasis in the right middle lobe and lingula unchanged. Bilateral bronchiectasis, most notable in the anterior lung zones unchanged. Cystic bronchiectasis in the superior segment of the right lower lobe again identified. Associated mucus plugging and bronchial wall thickening again identified. Bilateral scattered tree-in-bud opacifications are grossly unchanged. Calcified granuloma. No suspicious lung mass or consolidation. Biapical pleural parenchymal scarring. 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 Associated pleural thickening versus atelectasis. Small pulmonary on pulmonary nodules in these areas are not excluded Bronchiectasis, emphysematous change, and likely mucous plugging and multiple bronchi is noted. Subtle pulmonary nodules or endobronchial lesions are not excluded. Continued follow-up is recommended for surveillance. Follow-up in 3 months is recommended. Mild pleural thickening and/or consolidation in the right middle lobe and lingula. Review of Systems Review of Systems: All systems reviewed & are unremarkable except as noted in HPI and below Exam Narrative: GEN: Alert, oriented, not in distress. 93-94% on 2 L/min at rest HEENT: pupils are equal, EOMI, symmetrical face; oral membranes moist, NECK: Trachea is midline CHEST: Equal air entry, symmetric excursion, overall clear CV: Regular S1S2 no m/g/r ABD : (+) bowel sounds Extremities : no clubbing, cyanosis, or edema. PSYCH: normal thought and speech, gait not tested Objective Data Vital Signs Vital Signs: Vital Signs - 24 hr 12/20/24 19:59 12/20/24 19:59 12/20/24 20:00 Temperature Pulse Rate 77 88 Respiratory Rate 16 20 Blood Pressure Pulse Oximetry 93 93 Oxygen Delivery Nasal Cannula Nasal Cannula Oxygen Flow Rate 2 2 12/20/24 20:09 12/20/24 21:14 12/20/24 21:16 Temperature Pulse Rate 73 88 88 Respiratory Rate 16 Blood Pressure Pulse Oximetry Oxygen Delivery Oxygen Flow Rate 12/20/24 21:31 12/20/24 23:10 12/21/24 02:06 Temperature 36.9 C Pulse Rate 80 69 87 Respiratory Rate 20 21 H 18 Blood Pressure 111/45 L Pulse Oximetry 93 97 Oxygen Delivery BiPAP Oxygen Flow Rate 12/21/24 02:06 12/21/24 05:45 12/21/24 07:35 Temperature 36.3 C L Pulse Rate 73 62 Respiratory Rate 19 20 Blood Pressure 100/52 L Pulse Oximetry 93 94 97 Oxygen Delivery BiPAP Nasal Cannula Oxygen Flow Rate 2 12/21/24 07:35 12/21/24 09:47 12/21/24 09:49 Temperature Pulse Rate 61 68 Respiratory Rate 18 Blood Pressure 128/49 L Pulse Oximetry Oxygen Delivery Oxygen Flow Rate 12/21/24 10:00 Temperature Pulse Rate Respiratory Rate Blood Pressure Pulse Oximetry 96 Oxygen Delivery Nasal Cannula Oxygen Flow Rate 2 Intake/Output Intake/Output: Intake & Output 12/18/24 12/19/24 12/20/24 12/21/24 23:59 23:59 23:59 23:59 Intake Total 8594 756 8178 530 Output Total 1022 2300 1400 650 Balance 768 -1490 450 -120 Meds/Results Medications: Active Medications Generic Name Dose Route Start Last Admin Trade Name Freq PRN Reason Stop Dose Admin Acetaminophen 650 mg 12/15/24 15:19 12/17/24 21:23 Acetaminophen 325 Mg Tablet PO 650 mg Q4H PRN Administration Mild Pain (1-3) or Fever Hydrocodone Bitart/Acetaminophen 1 tab 12/15/24 22:01 Hydrocodone/Acetaminophen (*Crx) 5-325 Mg Tablet PO Q6H PRN Pain Rated 7-10 Albuterol/Ipratropium 3 ml 12/16/24 02:00 12/21/24 07:35 Ipratropium 0.5 Mg/Albuterol Sulfate 2.5 Mg Ampul.Neb 3 Ml INHALATION 3 ml Q6HRT ANA Administration Alprazolam 0.25 mg 12/15/24 22:01 12/20/24 22:02 Alprazolam (*Crx) 0.25 Mg Tablet PO 0.25 mg TID PRN Administration anxiety Empagliflozin 10 mg 12/16/24 09:00 12/21/24 09:45 Empagliflozin 10 Mg Tablet PO 10 mg DAILY ANA Administration Enoxaparin Sodium 40 mg 12/16/24 09:00 12/21/24 09:47 Enoxaparin 40 Mg/0.4 Ml Syringe SUB-Q 40 mg DAILY ANA Administration Famotidine 40 mg 12/15/24 22:05 12/20/24 21:14 Famotidine 20 Mg Tablet PO 40 mg QHS ANA Administration Flecainide Acetate 100 mg 12/16/24 09:00 12/21/24 09:47 Flecainide Acetate 100 Mg Tablet PO 100 mg Q12HR ANA Administration Furosemide 20 mg 12/20/24 09:00 12/21/24 09:46 Furosemide 20 Mg Tablet PO 20 mg DAILY ANA Administration Gabapentin 300 mg 12/20/24 21:00 12/21/24 09:45 Gabapentin 300 Mg Capsule PO 300 mg Q12HR ANA Administration Cefepime HCl 2 gm in 50 mls @ 100 mls/hr 12/15/24 21:00 12/21/24 10:20 Maxipime 2 Gm/Ns 50 Ml IVPB Infused Q12HR ANA Infusion Lidocaine 1 patch 12/16/24 09:00 12/21/24 10:03 Lidocaine 5% Patch TRANSDERM Not Given DAILY ANA Magnesium Oxide 200 mg 12/16/24 09:00 12/21/24 09:46 Magnesium Oxide 200 Mg Tablet PO 200 mg DAILY ANA Administration Metoprolol Succinate 25 mg 12/16/24 21:00 12/20/24 21:16 Metoprolol Succinate Ext Rel 25 Mg Tabcr PO 25 mg QHS ANA Administration Mirtazapine 7.5 mg 12/15/24 22:05 12/20/24 21:16 Mirtazapine 7.5 Mg Tablet PO 7.5 mg QHS ANA Administration Multivitamins Therapeutic 1 tablet 12/16/24 09:00 12/21/24 09:47 Multivitamins Therapeutic Tab (*Bkc) PO 1 tablet DAILY ANA Administration Ondansetron HCl 4 mg 12/15/24 15:19 12/20/24 13:29 Ondansetron Inj 4 Mg/2 Ml Vial IV PUSH 4 mg Q4H PRN Administration Nausea Sacubitril/Valsartan 1 tab 12/16/24 09:00 12/21/24 09:46 Sacubitril/Valsartan 24-26 Mg Tablet PO 1 tab Q12HR ANA Administration Sertraline HCl 50 mg 12/16/24 09:00 12/21/24 09:45 Sertraline Hcl 50 Mg Tablet PO 50 mg DAILY ANA Administration Spironolactone 25 mg 12/18/24 11:00 12/21/24 09:46 Spironolactone 25 Mg Tablet PO 25 mg QAM ANA Administration Vitamin D 1,000 units 12/16/24 09:00 12/21/24 09:45 Cholecalciferol 1,000 Units Tablet PO 1,000 units DAILY ANA Administration Radiology Results: ITS Impressions Wrist X-Ray 12/15/24 12:55 IMPRESSION: 1. Nondisplaced avulsion fractures of the ulnar styloid. 2. Age-indeterminate nondisplaced fracture of radial styloid. 3. Small bone fragment dorsal to the carpus on the lateral view, which may be an avulsion fracture of dorsal pole of triquetrum. 4. Polyarticular osteoarthritis. Head CT 12/15/24 17:34 Impression: No acute intracranial hemorrhage or suspicious mass effect. Chest X-Ray 12/17/24 06:21 Impression: Probable mild bibasilar pulmonary edema and minimal pleural effusions. Underlying COPD pattern. Labs Labs: Laboratory Results - last 24 hr 12/21/24 05:12 WBC 5.5 RBC 3.68 L Hgb 10.6 L Hct 36.3 L MCV 98.6 MCH 28.8 MCHC 29.2 L RDW 14.4 Plt Count 193 MPV 10.2 Sodium 135 L Potassium 4.1 Chloride 94 L Carbon Dioxide 35 H Anion Gap 6 BUN 20 H Creatinine 0.57 L Estim Creat Clear Calc 55 Estimated GFR > 60 Glucose 95 Calcium 8.6
[2024-12-26 19:29] LABS: Legionella pneumophila Ag Ur NOT DETECTED
== END 2024-12-21 16:33 | disposition home health service (06) | DRG 871 ==
LOC: ANHED 12:47 → ANHIMU 16:22 → ANH2MED 12-19 14:15
PROVIDERS: Internal Medicine; Internal Medicine Pulmonary Disease; Student in an Organized Health Care Education/Training Program; Admitting Provider Internal Medicine; Emergency Provider Emergency Medicine; PCP Family Medicine; Visit Provider Internal Medicine
DX: A41.9 Sepsis, unspecified organism (principal); I50.43 Acute on chronic combined systolic (congestive) and diastolic (congestive) heart failure; J18.9 Pneumonia, unspecified organism; J96.22 Acute and chronic respiratory failure with hypercapnia; J96.21 Acute and chronic respiratory failure with hypoxia; S52.615A Nondisplaced fracture of left ulna styloid process, initial encounter for closed fracture; S52.515A Nondisplaced fracture of left radial styloid process, initial encounter for closed fracture; C79.51 Secondary malignant neoplasm of bone; J44.0 Chronic obstructive pulmonary disease with (acute) lower respiratory infection; J44.1 Chronic obstructive pulmonary disease with (acute) exacerbation; I42.8 Other cardiomyopathies; R65.20 Severe sepsis without septic shock; C50.912 Malignant neoplasm of unspecified site of left female breast; J44.9 Chronic obstructive pulmonary disease, unspecified; I49.3 Ventricular premature depolarization; I44.7 Left bundle-branch block, unspecified; G47.33 Obstructive sleep apnea (adult) (pediatric); M81.0 Age-related osteoporosis without current pathological fracture; M54.16 Radiculopathy, lumbar region; Z20.822 Contact with and (suspected) exposure to COVID-19; Z66 Do not resuscitate; M15.9 Polyosteoarthritis, unspecified; W19.XXXA Unspecified fall, initial encounter; Z99.81 Dependence on supplemental oxygen; Z87.891 Personal history of nicotine dependence
CPT/HCPCS: 25600; 36415; 36600; 70450; 71045; 73110; 80048; 80053; 81003; 82375; 82805; 83050; 83605; 83735; 83880; 84145; 85018; 85025; 85027; 85610; 85730; 87040; 87449; 87637; 87641; 87899; 93005; 93306; 94002; 94003; 94618; 94640; 94667; 94668; 94669; 94762; 96365; 96367; 96375; 97110; 97116; 97161; 97165; 97530; 97535; 99285; A9270; G0378; J0456; J0692; J0696; J1650; J1938; J1940; J2405; J3370

== ENCOUNTER 2025-04-07 08:57 | Outpatient (CLI) | payer MEDICARE, OTHER, SELFPAY ==
--- NOTE | ~2025-04-07 | NM_ITS ---
EXAMINATION: NM bone scan whole body DATE: 04/07/2025 13:24 INDICATION: Bone metastases TECHNIQUE: 25.3 mCi Tc-99m HDP was administered intravenously. Delayed whole-body scintigrams were o btained. COMPARISON: CT studies dated 04/07/2025 and 12/03/2024 and PET/CT dated 12/09/2024 FINDINGS: Photopenic defect at the left hip corresponding to a total hip arthroplasty. Likely degenerative join t centered uptake at the bilateral acromioclavicular joints and at the radial aspect of the carpi. Th ere is also asymmetric mild uptake at the greater tuberosities of the bilateral humeri where there is degenerative cystic change evident on the prior CT studies. There is increased uptake in the midthor acic spine associated with compression fractures at T6 which appeared acute on study dated 12/03/2024 and at distal compression fractures at T7 and T8 which are seen in the more recent study having progr essed since the prior study. More intense focus uptake in the anterior right sixth rib where there ap pears be subtle nondisplaced fracture on the most recent radiograph without evident underlying lytic or blastic bone lesion. No abnormal uptake associated with previously seen foci of increased FDG upta ke at the right scapula and lateral left fifth rib. No other lesions suspicious for metastatic diseas e. IMPRESSION: 1. Intense focus of increased uptake at the anterior right sixth rib corresponding to a recent-appear ing rib fracture on CT are from 04/07/2025. 2. Increased uptake associated with 3 relatively recent midthoracic compression fractures likely rela terra to the fractures although could not exclude pathologic fracture. 2. No uptake associated with previously noted FDG avid lesions at the right scapula and lateral left fifth rib which are nonetheless concerning for metastatic disease. Reviewed, dictated and finalized at location A. IMPRESSION: 1. Intense focus of increased uptake at the anterior right sixth rib correspond ing to a recent-appearing rib fracture on CT are from 04/07/2025. 2. Increased uptake associated with 3 relatively recent midthoracic compression fractures likely related to the fractures although could not exclude pathologi c fracture. 2. No uptake associated with previously noted FDG avid lesions at the right sca pula and lateral left fifth rib which are nonetheless concerning for metastatic disease.
--- NOTE | ~2025-04-07 | CT_ITS ---
EXAMINATION: CT chest abdomen pelvis w con DATE: 04/07/2025 09:43 INDICATION: Metastases TECHNIQUE: Computed tomography (CT) of the chest, abdomen, and pelvis was performed with 100 mL Omnip aque-350 intravenous contrast. Automated exposure control and iterative reconstruction technique were employed. The dose-length product was 300.73 mGy-cm. COMPARISON: PET/CT dated 12/09/2024 and MR abdomen dated 12/20/2023 FINDINGS: CHEST CT: Mild biapical pleural-parenchymal scarring. Calcified right lower lobe nodule along with calcified ri ght hilar and mediastinal lymph nodes are consistent with old granulomatous disease. There are tree-i n-bud opacities and mucous plugging in the bilateral lower lobes and to lesser degree the bilateral u pper lobes consistent with endobronchial spread of disease. Bandlike discoid atelectasis in the basil ar lower lobes as well as the right middle lobe and lingula. There are new peripheral regions of cons olidation at the anterolateral left upper lobe with stranding in the adjacent fat anterior left axill a at the site of previously noted mildly enlarged and FDG avid lymph nodes which are either absent or significantly decrease in size. Constellation of findings would be consistent with likely radiation pneumonitis the periphery of the lung for treatment of biopsy-proven metastatic left axillary lymphad enopathy. Heart size is normal. No pericardial effusion. Thoracic aorta is normal in caliber. No pat hologically enlarged thoracic lymphadenopathy. No significant change in a chronic T6 compression frac ture with 80% anterior vertebral body height loss. There are additional T7 and T8 compression fractur e with 60% intervertebral body height loss and increased sclerosis along the fracture planes which ar e new since the prior study. Recent-appearing fracture of the anterior right sixth rib with additiona l old healed anterior right rib fractures. ABDOMEN/PELVIS CT: Calcified gallstone in the dependent fundus of the otherwise normal-appearing gallbladder. Liver, mccoy creas, bilateral adrenal glands are normal. Again seen are bilateral low-attenuation renal cysts the largest on the left measuring 1.2 cm. Couple hypodense splenic lesions the largest at the dome measur ing 9 mm both demonstrating delayed enhancement on the 5 and 10 minute delayed MRI images most consis tent with hemangiomas. Bowels are unremarkable with no obstruction. No significant change in a simple appearing 4.0 cm right adnexal cyst. Left adnexa is unremarkable. The uterus is not identified and h as likely been surgically resected. No free intraperitoneal gas or fluid. No pathologically enlarged abdominal or pelvic lymphadenopathy. Left total hip arthroplasty. Severe disc height loss at L5-S1 wi th otherwise mild spondylosis and more cephalad lumbar spine. IMPRESSION: 1. Diffuse interstitial and tree-in-bud opacities throughout both lungs and basilar predominant bronc hiectatic changes with mucous plugging likely sequela of chronic infection. 2. A few new patchy peripheral regions of consolidation at the anterolateral left upper lobe near the left axilla where there has been interval decrease in size of a few prior mildly enlarged and FDG av id lymph nodes. Findings suggest radiation pneumonitis related to interval treatment of the lymphaden opathy. Correlate with clinical/oncologic history. 3. No lesion suspicious for new or progressive metastatic disease in the chest, abdomen or pelvis. 4. Cholelithiasis. 5. No significant change in a 4.0 cm simple appearing right adnexal cyst. 6. Chronic T6 compression fracture with interval development of a couple relatively recent compressio n fractures of T7 and T8. Reviewed, dictated and finalized at location A. IMPRESSION: 1. Diffuse interstitial and tree-in-bud opacities throughout both lungs and bas ilar predominant bronchiectatic changes with mucous plugging likely sequela of chronic infection. 2. A few new patchy peripheral regions of consolidation at the anterolateral le ft upper lobe near the left axilla where there has been interval decrease in si ze of a few prior mildly enlarged and FDG avid lymph nodes. Findings suggest ra diation pneumonitis related to interval treatment of the lymphadenopathy. Corre late with clinical/oncologic history. 3. No lesion suspicious for new or progressive metastatic disease in the chest, abdomen or pelvis. 4. Cholelithiasis. 5. No significant change in a 4.0 cm simple appearing right adnexal cyst. 6. Chronic T6 compression fracture with interval development of a couple relati vely recent compression fractures of T7 and T8.
--- OUTSIDE RECORDS SUMMARY | 2025-04-07 09:04 | XMS_ITS | Referral Summary ---
Author Organization [facility] Virtual Care Address [address] [place] [phone] Phone Care Team Providers Care Blacksmith Assistant Name Role Phone Pawan Echevarria MD Primary Care Provider [phone] Encounters Date Type Department Care Team Description 01/12/2025 2:30 PM CDT Office Visit [facility] Medical Group Cardiology [address] [place] [address] Heaven Garcia NP Nonischemic cardiomyopathy (HCC) (Primary Dx); Reduced ejection fraction concurrent with and due to chronic heart failure (HCC); PVC (premature ventricular contraction); Chronic hypoxic respiratory failure, on home oxygen therapy (HCC); Hospital discharge follow-up from Last 3 Months Allergies No known [...] needed for anxiety 30 tablet 3 Active multivit-min/oziel us fumarate (MULTI VITAMIN ORAL) Take by mouth Ac tive metoprolol XL (TOPROL-XL) 25 mg extended release [...] day 60 tablet 11 5 026 Active anastrozole (ARIMIDEX) 1 mg tablet 5 Active mirtazapine (REMERON) 7.5 mg tablet Take 1 tablet (7.5 mg total) by mouth 5 Active gabapentin (NEURONTIN) 300 mg capsule 5 Active palbociclib (IBRANCE) 125 mg tablet Take 1 tablet (125 mg total) by mouth daily 5 Active famotidine (PEPCID) 40 mg tablet Take 1 tablet (40 mg total) by mouth 5 Active spironolactone (ALDACTONE) 25 mg tabletIndications: Nonischemic cardiomyopathy (HCC) Take 1 tablet (25 mg total) by mouth daily 90 tablet 3 5 Active furosemide (LASIX) 20 mg tabletIndications: Nonischemic cardiomyopathy (HCC) Take 1 tablet (20 mg total) by mouth daily as needed (edema and/or weight gain) 30 tablet 1 5 Active Active Problems Problem Noted Date [...] CMP checked today. - Spoke with her gage maker, Dr. Abdon Flynn ([facility] Multispecialty Care [facility], to discuss the possibility of [...] 81 y.o. 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 8 COPD (chronic obstructive pulmonary [...] on file Legal Sex Female 3:43 AM JIG AND FIXTURE REPAIRER Gender Identity Female 02/01/2022 8:55 AM CDT Sexual Orientation Straight 02/01/2022 8: 55 AM CDT Last Filed Vital Signs Vital Sign Reading Time Taken Comments Blood Pressure 124/58 01/12/2025 2:43 PM CDT Pulse 71 01/12/2025 2:43 PM CDT Temperature 36.9 C (98.5 F) 10/04/2022 11:40 AM JIG AND FIXTURE REPAIRER Respiratory Rate 20 03/18/2024 11:53 AM CDT Oxygen Saturation 95% 01/12/2025 2:43 PM CDT Inhaled Oxygen Concentration - - Weight 56.7 kg (125 lb) 01/12/2025 2:43 PM CDT Height 162.6 cm (5' 4) 01/12/2025 2:43 PM CDT Body Mass Index 21.46 01/12/2025 2:43 PM CDT Plan of Treatment [place] [address] MEDICARE Share Some Style MEDICARE FOR LIFE MEDICARE FOR LIFE Care Teams Blacksmith Assistant Relationship Specialty Start Date End Date Pawan Echevarria MD [address] [place] [address] [address] PCP - General Family Medicine 06/06/23
--- OUTSIDE RECORDS SUMMARY | 2025-04-07 09:04 | XMS_ITS | Encounter Summary ---
Author Organization [facility] Address [address] [place] [address] Phone Care Team Providers Care Associate Engineer Name Role Phone Geeta Crisostomo MD Primary Care Provider [phone] Gavin Gross MD Primary Care Provider [phone] Pawan Echevarria MD Primary Care Provider [phone] Encounter Details Date Type Department Care Team (Late st Contact Info) Description 04/05/2021 Orders Only [facility] INFECTIOUS DISEASE Scanning, Provider Social History Tobacco Use Types Packs/Day Years Used Date Smoking Tobacco: Former Smokeless Tobacco: Never Alcohol Use Standard Drinks/Week Comments No 0 (1 standard drink = 0.6 oz pur e alcohol) Comments Unknown Sex and Gender Information Value Date Recorded Sex Assigned at Not on file Legal Sex Female 3:43 AM STAGE PRODUCER Gender Identity Female 02/01/2022 8:55 AM CDT [...] on filedocumented in this encounter Care Teams Associate Engineer Relationship Specialty Start Date End Date Geeta Crisostomo MD [address] [place] [address] PCP - General Family Medicine 03/08/18 03/28/22 Gavin Gross MD [address] [place] [address] PCP - General Family Medicine 03/29/22 06/05/23 Pawan Echevarria MD [address] [place] [address] [place] [address] PCP - General Family Medicine 06/06/23 documented as of this encounter
--- OUTSIDE RECORDS SUMMARY | 2025-04-07 09:04 | XMS_ITS | Clinical Summary ---
Author Organization [facility] Negra Priestolga Address [address] [place] [address] Care Team Providers Care Shellfish Meat Separator Operator Name Role Phone Pawan Echevarria MD Primary Care Provider [phone] Allergies Active Allergy Reactions Criticality Noted Date [...] 25 mg by mouth daily. 4 06/23/20 Active ondansetron (ZOFRAN) 4 mg Tablet Take 4 mg by mouth 1 time daily as needed for Nausea. 5 Active anastrozole (Arimidex) 1 mg tablet Take 1 Tablet (1 mg) by mouth daily. 90 Tablet 5 5 Active spironolactone (ALDACTONE) 25 mg tablet Take 25 mg by mouth daily. 5 Active gabapentin (NEURONTIN) 100 mg capsule Take 100 mg by mouth daily in the morning. 5 Active furosemide (LASIX) 20 mg tablet Take 20 mg by mouth Continuous as needed for Other (See Comment) (water retention/swel ling). 5 Active flecainide (TAMBOCOR) 100 mg tablet Take 100 mg by mouth 2 times daily. 5 12/02/19 26 Active formoterol (PERFOROMIST) 20 mcg/2 mL Solution for Nebulization Take 20 mcg by inhalation one time only. Active revefenacin (Yupelri) 175 mcg/3 mL Solution for Nebulization Take by inhalation. Active palbociclib (Ibrance) 125 mg tablet Take 1 tablet (125 mg) by mouth daily for 21 days on and 7 days off every 28-day cycle. 21 Tablet 4 5 Active Active Problems No known active problems Encounters Date Type Department Care Team Description 04/01/2025 External Device Data ST[facility] ABSTRACTION Provider, Abstract 04/01/2025 External Device Data [facility] ABSTRACTION Provider, Abstract 04/01/2025 External Device Data [facility] ABSTRACTION Provider, Abstract 03/31/2025 External Device Data [facility] ABSTRACTION Provider, Abstract 03/04/2025 External Device Data [facility] ABSTRACTION Provider, Abstract 03/03/2025 External Device Data STL ABSTRACTION Provider, Abstract 02/25/2025 2:30 PM CDT Office Visit [facility] Oncology and Hematology - [address] [place] [phone] Warren Vaughn MD Metastasis to bone (CMS/HCC) (Primary Dx) 02/20/2025 Orders Only [facility] Oncology and Hematology - [address] [place] [phone] Warren Vaughn MD 2025 Orders Only [facility] Oncology and Hematology - [address] [place] [phone] Warren Vaughn MD 02/05/2025 External Device Data ST[facility] ABSTRACTION Provider, Abstract 02/04/2025 Refill [facility] Oncology and Hematology - [address] [place] [phone] Warren Vaughn MD 02/03/2025 External Device Data ST[facility] ABSTRACTION Provider, Abstract 02/03/2025 Specialty Pharmacy [facility] [address] [place] [phone] Jolene Lozoya, PHARMACIST 02/03/2025 Specialty Pharmacy [facility] [address] [place] [phone] Jolene Lozoya, PHARMACIST Specialty Pharmacy Refill Coordination 01/22/2025 11:30 AM CDT Office Visit [facility] Oncology and Hematology - [address] [place] [phone] Warren Vaughn MD Metastasis to bone (CMS/HCC) (Primary Dx) 01/20/2025 Orders Only [facility] Oncology and [facility]ematology - [place] [place] [phone] Warren Vaughn MD 01/16/2025 Orders Only [facility] Oncology and Hematology - [address] [place] [phone] Warren Vaughn MD 01/15/2025 Orders Only [facility] Oncology and Hematology - [address] [place] [address] Warren Vaughn MD 01/09/2025 Specialty Pharmacy [facility] [address] [place] [address] [place] [phone] Jolene Lozoya, PHARMACIST Specialty Pharmacy Refill Coordination from Last 3 Months Family History Medical [...] Sign Reading Time Taken Comments Blood Pressure 115/67 02/25/2025 2:19 PM CDT Pulse 78 02/25/2025 2:19 PM CDT Temperature 36.9 C (98.5 F) 02/25/2025 2:19 PM CDT Respiratory Rate 15 02/25/2025 2:19 PM CDT Oxygen Saturation 92% 02/25/2025 2:19 PM CDT Inhaled Oxygen Concentration - - Weight 55 kg (121 lb 3.2 oz) 02/25/2025 2:19 PM CDT Height 162.6 cm (5' 4) 11/29/2023 3:03 PM CDT Body Mass Index 20.8 11/29/2023 3:03 PM CDT Plan of Treatment Upcoming Encounters Date Type Department Care Team (Late st Contact Info) Description 04/14/2025 2:00 PM CDT Office Visit [facility] Oncology and Hematology - [address] [place] [address] Warren Vaughn MD [address] [facility] [address] [place] [address] Health Maintenance Due Date Last Done Comments DTAP/TDAP/TD VACCINES (1 - Tdap) 02/14/1960 PNEUMOCOCCAL VACCINE 50+ YEA RS (1 of 2 - PCV) 02/14/1960 ZOSTER VACCINE (1 of 2) 02/14/1960 RSV VACCINE (60+ or ) (1 - 1-dose 75+ series) 02/14/2016 COVID-19 Vaccine (3 - Pfizer risk series) 12/17/2020 11/19/2020, 10/26/2020 INFLUENZA VACCINE (#1) 2025 OSTEOPOROSIS SCREENING 06/02/2029 06/02/2024 Procedures Procedure Name Priority Date/Time Associated Diagnosis Comments CANCER ANTIGEN 15-3 Routine 02/12/2025 1 2:19 PM CDT COMPREHENSIVE METABOLIC PANEL Routine 02/12/2025 11:27 AM CDT CBC WITH DIFFERENTIAL Routine 02/12/2025 8:03 AM CDT CBC WITH DIFFERENTIAL Routine 01/15/2025 4:27 PM CDT COMPREHENSIVE METABOLIC PANEL Routine 01/15/2025 1:29 PM CDT CANCER ANTIGEN 15-3 Routine 01/15/2025 1 2:58 PM CDT from Last 3 Months Results * CANCER ANTIGEN 15-3 (02/12/2025 12:19 PM CDT) Only the most recent of2 resultswithin the time period is included. Blood us Warren Vaughn MD CHEMISTRY ORDERABLES Final Resu lt * COMPREHENSIVE METABOLIC PANEL (02/12/2025 11:27 AM CDT) Only the most recent of2 resultswithin the time period is included. Blood us Warren Vaughn MD CHEMISTRY ORDERABLES Final Resu lt * CBC WITH DIFFERENTIAL (02/12/2025 8:03 AM CDT) Only the most recent of2 resultswithin the time period is included. Blood us Warren Vaughn MD HEMATOLOGY ORDERABLES Final Res ult from Last 3 Months Insurance MEDICARE PART A AND B FOR [employer] Care Teams Shellfish Meat Separator Operator Relationship Specialty Start Date End Date Pawan Echevarria MD [address] [place] [phone] PCP - General Family Practice 11/29/23
--- OUTSIDE RECORDS SUMMARY | 2025-04-07 09:04 | XMS_ITS | Encounter Summary ---
Author Organization [facility] Address [address] [place] [address] Care Team Providers Care Supreme Court Judge Name Role Phone Gavin Gross MD Primary Care Provider [phone] Pawan Echevarria MD Primary Care Provider [phone] Encounter Details Date Type Department Care Team (Late Contact Info) Description 03/14/2023 MyChart Message Enc [facility] Medical Group - [facility] [address] [place], [place] [address] [place], [facility] Provider Air Quality Message [...] Sex Assigned at Female 10/03/2024 2:27 PM PLANT PULLER Legal Sex Female 4:16 PM CDT Gender Identity Not on file Sexual Orientation Not on file documented as of this encounter Plan of Treatment Upcoming Encounters Date Type Department Care Team (Late Contact Info) Description 04/09/2025 3:00 PM CDT Office Visit [facility] Medical Group Multispecialty Care - [facility] [address] [place] [address] Abdon Flynn MD [facility] [facility] [address] [place] [address] documented as of this encounter Visit Diagnoses Not on filedocumented in this encounter Additional Health Concerns Infection Onset Date Last Indicated Resolved Time COVID-19 Rule Out 10/03/2024 10/03/2024 10/03/2024 5:30 PM PLANT PULLER COVID-19 Rule Out 10/04/2024 10/04/2024 10/04/2024 3:19 AM PLANT PULLER Influenza - Seasonal 10/04/2024 10/04/2024 025 12:32 AM PLANT PULLER Assessment Noted Time PHQ-9 Depression Total Score: 0 12/13/19 22 11:54 AM CDT documented as of this encounter Care Teams Supreme Court Judge Relationship Specialty Start Date End Date Gavin Gross MD [address] [place] [address] PCP - General FAMILY PRACTICE 07/13/22 04/16/23 Pawan Echevarria MD [facility] [address] [place] [address] PCP - General FAMILY PRACTICE 04/17/23 documented as of this encounter
--- OUTSIDE RECORDS SUMMARY | 2025-04-07 09:04 | XMS_ITS | Encounter Summary ---
Author Organization [facility] Address [address] [place] [address] Care Team Providers Care Assembler Dry Cell And Battery Name Role Phone Pawan Echevarria MD Primary Care Provider [phone] Encounter Details Date Type Department Care Team (Latest Contact Info) Description 03/31/2025 Scan HEALTH INFO SRVCS Scanned, Doc Med Group Social History Tobacco Use Types Packs/Day Years Used Date Smoking Tobacco: Former Cigarettes 0.3 6 0 02/25/1974 - 02/26/1980 Smokeless Tobacco: Never Alcohol Use Standard Drinks/Week Comments Not Currently 1.7 (1 standard drink = 0.6 oz p ure alcohol) minimal rare use OASIS D0700: Social [...] materials from doctor or pharmacy Never 10/24/2024 [facility] Utilities Answer Date Recorded In the [...] and Family Not on file 10/04/2024 Attends [employer] Not on file 10/04 Active Member [...] Recorded Patient Health Questionnaire-2 Score 2 12/05/2022 [facility] - Occupational [...] any time in the past 12 m [facility] [place], were you homeless or living in a alf (including now)? 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 2:27 PM SPEECH AND HEARING CLINIC DIRECTOR Legal Sex Female 4:16 PM CDT Gender [...] Care Team (Late st Contact Info) Description 04/09/2025 3:00 PM CDT Office Visit [facility] Medical Group Multispecialty Care - [facility] [address] [facility] [address] [facility] [place] [address] Abdon Flynn MD [address] [facility] [address] [place] [address] documented as of this encounter Visit Diagnoses Not on filedocumented in this encounter Additional Health Concerns Assessment Noted Time PHQ-9 Depression Total Score: 0 12/13/19 22 11:54 AM CDT documented as of this encounter Care Teams Assembler Dry Cell And Battery Relationship Specialty Start Date End Date Pawan Echevarria MD [facility] [address] [place] [address] PCP - General FAMILY PRACTICE 04/17/23 documented as of this encounter
--- OUTSIDE RECORDS SUMMARY | 2025-04-07 09:04 | XMS_ITS | Encounter Summary ---
Author Organization [facility] - [facility] Address [facility] [place] [address] Care Team Providers Care Cut Off Saw Operator Metal Name Role Phone Pawan Echevarria MD Primary Care Provider [phone] Encounter Details Date Type Department Care Team (Late st Contact Info) Description 10/03/2024 MyChart Message Enc [facility] Medical Group Multispecialty Care - [facility] [address] [facility] [place] [phone] Abdon Flynn MD [address] [place], [place] [address]vd [address] [place] [address] Fever/Shortness of Breath Social History Tobacco Use Types Packs/Day Years Used Date Smoking Tobacco: Former Cigarettes 0.3 6 0 02/25/1974 - 02/26/1980 Smokeless Tobacco: Never Alcohol Use Standard Drinks/Week Comments Yes 0 (1 standard drink = 0.6 oz pur e alcohol) minimal rare use [facility] Utilities Answer Date Recorded In the [...] Recorded Patient Health Questionnaire-2 Score 2 12/05/2022 [facility] of Occupat ional Health - Occupational [...] any time in the past [address] [facility], were you homeless or living in a fdc (including now)? 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 2:27 PM WEEKEND CAREGIVER Legal Sex Female 4:16 PM CDT Gender Identity Not on file Sexual Orientation Not on file documented as of this encounter Functional Status * Question Answer Date of Assessment Author Status Are you deaf or do you have serious difficulty hearing No 10/04/2024 5:00 PM Nighat Caputo RN Act anamika Are you blind or do you have serious difficulty seeing, even when wearing glasses? No 10/04/2024 5:00 PM Nighat Caputo RN Act anamika * Calculated C-SSRS Risk Score (Lifetime/Recent) Answer Date of Assessment Author Status No Risk Indicated 10/03/2024 2:19 PM WEEKEND CAREGIVER Jethro Marin RN Active * Holt Suicide Severity Rating Scale (Screener/Recent Self-Report) Question Answer Date of Assessment Author Status 1. Wish to be (Past 1 Month) No 10/03/2024 2:19 PM Vicky Giraldo RN Act anamika 2. Non-Specific Active Suicidal Thoughts (Past 1 Month) No 10/03/2024 2:19 PM Vicky Giraldo RN Act anamika 6. Suicidal Behavior (Lifetime) No 10/03/2024 2:19 PM Vicky Giraldo RN Act anamika documented as of this encounter Mental Status * Question Answer Entry Date Author Status Because of a physical, mental, or emotional condition, do you have serious difficulty concentrating, remembering, or making decisions? No 10/04/2024 5:00 PM WEEKEND CAREGIVER Nighat Prado R N Active documented in this encounter Plan of Treatment Upcoming Encounters Date Type Department Care Team (Late st Contact Info) Description 04/09/2025 3:00 PM CDT Office Visit [facility] Medical Group Multispecialty Care - [facility] [address] [facility] [place] [address] Abdon Flynn MD [address] [facility] [address] [place] [address] documented as of this encounter Visit Diagnoses Not on filedocumented in this encounter Additional Health Concerns Infection Onset Date Last Indicated Resolved Time COVID-19 Rule Out 10/03/2024 10/03/2024 10/03/2024 5:30 PM WEEKEND CAREGIVER COVID-19 Rule Out 10/04/2024 10/04/2024 10/04/2024 3:19 AM WEEKEND CAREGIVER Influenza - Seasonal 10/04/2024 10/04/2024 025 12:32 AM WEEKEND CAREGIVER Assessment Noted Time PHQ-9 Depression Total Score: 0 12/13/19 22 11:54 AM CDT documented as of this encounter Care Teams Cut Off Saw Operator Metal Relationship Specialty Start Date End Date Pawan Echevarria MD [facility] [address] [place] [address] PCP - General FAMILY PRACTICE 04/17/23 documented as of this encounter
--- OUTSIDE RECORDS SUMMARY | 2025-04-07 09:04 | XMS_ITS | Encounter Summary ---
Author Organization [facility] Address [facility] [place] [address] Care Team Providers Care Stock Preparer Name Role Phone Pawan Echevarria MD Primary Care Provider [phone]- [phone] Encounter Details Date Type Department Care Team (Late st Contact Info) Description 11/18/2024 MyChart Message Enc [facility] Medical Group Multispecialty Care - [facility] 3 [facility] [place] [phone] Abdon Flynn MD [address] [place], [place] [address] [address] [place] [address] Move Up Appointment Social History Tobacco Use [...] materials from doctor or pharmacy Never 10/24/2024 [facility] Utilities Answer Date Recorded [...] Recorded Patient Health Questionnaire-2 Score 2 12/05/2022 [facility] [place] of Occupat ional Health - Occupational Stress [...] any time in the past 12 m [facility], were you homeless or living in a senior care (including now)? 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 Legal Sex Female 4:16 PM CDT Gender [...] Description 04/09/2025 3:00 PM CDT Office Visit [facility] Medical Group Multispecialty Care - [facility] [address] [facility] [place] [address] Abdon Flynn MD [address] [place] [address] [address] [place] [address] documented as of this encounter Visit Diagnoses Not on filedocumented in this encounter Additional Health Concerns Assessment Noted Time PHQ-9 Depression Total Score: 0 12/13/19 22 11:54 AM CDT documented as of this encounter Care Teams Stock Preparer Relationship Specialty Start Date End Date Pawan Echevarria MD [address] [facility] [address] [place] [address] PCP - General FAMILY PRACTICE 04/17/23 documented as of this encounter
--- OUTSIDE RECORDS SUMMARY | 2025-04-07 09:04 | XMS_ITS | Clinical Summary ---
Author Organization [facility] Address [facility] [place] [address] Care Team Providers Care Body Work Auto Trimmer Name Role Phone Pawan Echevarria MD Primary Care Provider [phone]- [phone] Allergies Active Allergy Reactions Criticality Noted Date Comments Ipratropium Unknown 07/04/2018 Levofloxacin Hallucinations Medium 10/06/2024 [facility] Patient reported during admission 09/2024 after x2 doses of LQ Medications multivitamin tabletIndications: Vitamin and/or Mineral Deficiency Take 1 tablet by mouth daily. Indications: Vitamin and/or Mineral Deficiency Active Calcium Carbonate-Vitamin D 500-125 MG-UNIT TabIndications:Vit aponte and/or Mineral Deficiency Indications: Vitamin and/or Mineral Deficiency Active metoprolol succinate ER 25 MG 24 hr tabletIndications: Heart Failure Indications: Cardiac Failure 07/30/20 20 Active sertraline 50 MG tabletIndications: Depression Take 1 tablet (50 mg total) by mouth daily. Indications: Depression 03/07/20 21 Active albuterol (PROVENTIL) (2.5 MG/3ML) 0.083% nebulizer solutionIndication s:Shortness of breath Take 3 mLs (2.5 mg total) by nebulization every 4 (four) hours as needed for Wheezing or Shortness of breath. 360 mL 3 12/06/19 23 Active Respiratory Therapy Supplies (NEBULIZER/TUBING/ MOUTHPIECE) KitIndications:Bro nchiectasis without complication (CMS/HCC HHS/HCC) 1 each by Does not apply route every 4 (four) hours as needed. 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 120 mL 5 01/09/20 23 Active empagliflozin (JARDIANCE) 10 MG tabletIndications: Congestive Heart Failure Take 1 tablet (10 mg total) by mouth daily. Indications: Congestive Heart Failure 06/17/20 23 Active ENTRESTO 24-26 MG tabletIndications: Congestive Heart Failure Take 1 tablet by mouth 2 (two) times daily. Indications: Congestive Heart Failure 06/17/20 23 Active umeclidinium-vilan terol (ANORO ELLIPTA) 62.5-25 MCG/ACT inhalerIndications :COPD exacerbation, uncomplicated USE 1 INHALATION DAILY 360 each 3 03/06/20 24 Active albuterol sulfate HFA (PROAIR HFA) 108 (90 Base) MCG/ACT inhalerIndications :Shortness of breath Inhale 2 puffs into the lungs every 6 (six) hours as needed for Wheezing or Shortness of breath. 18 g 3 07/25/20 24 Active ALPRAZolam (XANAX) 0.5 MG tabletIndications: Anxiety Take 0.5 tablets (0.25 mg total) by mouth nightly as needed for Sleep or Anxiety. Indications: Feeling Anxious Active OXYGENIndications: Shortness of breath 2 L/min by Nasal route as needed. Indications: Shortness of breath 10/09/19 25 Active flecainide (TAMBOCOR) 100 MG tablet Take 1 tablet (100 mg total) by mouth 2 (two) times daily. 12/02/19 25 026 Active furosemide (LASIX) 20 MG tablet 12/16/19 25 Active spironolactone (ALDACTONE) 25 MG tablet Active palbociclib (IBRANCE) 125 MG capsule 12/23/19 25 Active anastrozole (ARIMIDEX) 1 MG tablet 12/11/19 25 Active mirtazapine (REMERON) 7.5 MG Tab tablet Take 1 tablet (7.5 mg total) by mouth. 10/16/19 25 Active famotidine (PEPCID) 40 MG tablet Take 1 tablet (40 mg total) by mouth. 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 COPD (chronic obstructive pu lmonary disease) ([facility]) 03/05/2018 History of Pseudomonas pneumonia 01/27/2018 Pleural thickening 01/27/2018 Bacterial infection 12/13/2017 Chronic cough 12/10/2017 Asthma exacerbation ([facility]) 12/10/2017 Wheeze 12/10/2017 Resolved Problems Problem Noted Date Diagnosed Date Resolved Date Encounter for preventive health examination 11/07/2017 05/28/2020 Encounters Date Type Department Care Team Description 03/31/2025 Scan [facility] INFO [facility] Scanned, [facility] 03/02/2025 Scan [facility] HEALTH INFO SRVCS Scanned, Doc Med Group 01/29/2025 Scan HEALTH INFO SRVCS Scanned, Doc Med Group from Last 3 Months Immunizations Immunization Administration Dates Next Due PFIZER COVID-19 (ORIGINAL FO RMULATION, PURPLE CAP) mRNA, LNP-S, PF, 30 MCG/0.3 ML DOSE 11/19/2020,10/26/2020 Social History Tobacco Use Types Packs/Day Years Used Date Smoking Tobacco: Former Cigarettes 0.3 6 0 02/25/1974 - 02/26/1980 Smokeless Tobacco: Never Tobacco Cessation:Counseling Given: Yes Alcohol Use Standard Drinks/Week Comments Not Currently [...] materials from doctor or pharmacy Never 10/24/2024 [facility] Utilities Answer Date Recorded In the past [...] and Family Not on file 10/04/2024 Attends [employer] Not on file 10/04 Active Member [...] Recorded Patient Health Questionnaire-2 Score 2 12/05/2022 [facility] of Occupat ional Health - Occupational Stress [...] any time in the past 12 m [facility], were you homeless or living in a detention (including now)? 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 Legal Sex Female 4:16 PM CDT Gender Identity Not on file Sexual Orientation Not on file Last Filed Vital Signs Vital Sign Reading Time Taken Comments Blood Pressure 150/84 12/24/2024 2:19 PM CDT Pulse 81 12/24/2024 2:19 PM CDT Temperature 36.6 C (97.9 F) 10/14/2024 1:35 PM DROP FORGER HELPER Respiratory Rate 16 12/24/2024 2:19 PM CDT Oxygen Saturation 96% 12/24/2024 2:19 PM CDT 2L Inhaled Oxygen Concentration - - Weight 60.8 kg (134 lb) 12/24/2024 2:19 PM CDT Height 162.6 cm (5' 4) 12/24/2024 2:19 PM CDT Body Mass Index 23 12/24/2024 2:19 PM CDT Plan of Treatment Upcoming Encounters Date Type Department Care Team (Late st Contact Info) Description 04/09/2025 3:00 PM CDT Office Visit [facility] Medical Group Multispecialty Care - [facility] [address] [facility] [place] [address] Abdon Flynn MD [address] [facility] [address] [place] [address] Health Maintenance Due Date Last Done Comments DTaP, Tdap and Td Vaccines ( 1 - Tdap) 02/14/1960 Pneumococcal Vaccine: 50+ Years (1 of 2 - PCV) 02/14/1960 Zoster Vaccines (1 of 2) 1991 Annual Medicare Wellness Visit 2006 Dexa Scan (General) 2006 RSV Immunization or 60+ Years (1 - 1-dose 75+ series) 02/14/2016 COVID-19 Vaccine (3 - 2023-2 5 season) 2024 11/19/2020, 10/26/2020 PHQ-2 (Physician [place]) 09/17/2024 10/25/2023 Meningococcal B Vaccine Aged Out No l onger eligible based on patient's age to complete this topic Meningococcal Vaccine Aged Out No emeli jennifer eligible based on patient's age to complete this topic RSV Immunizations Under 20 Months Aged Out No longer eligible b ased on patient's age to complete this topic Insurance [employer] MEDICARE Advance Directives * Full Code (Latest Code Status on File) Date Activated Date Inactivated Comments 10/09/2024 3:14 PM * Full Code Date Activated Date Inactivated Comments 10/04/2024 12:11 AM 10/08/2024 6:04 PM Care Teams Body Work Auto Trimmer Relationship Specialty Start Date End Date Pawan Echevarria MD [address] [facility] [address] [address] PCP - General FAMILY PRACTICE 04/17/23
--- OUTSIDE RECORDS SUMMARY | 2025-04-07 09:04 | XMS_ITS | Encounter Summary ---
Author Organization [facility] - [facility] Address [facility] [place] [address] Care Team Providers Care Metal Slitter Name Role Phone Pawan Echevarria MD Primary Care Provider [phone] Encounter Details Date Type Department Care Team (Late st Contact Info) Description 12/31/2024 MyChart Message Enc [facility] Medical Group Multispecialty Care - [facility] [address] [facility] [place] [address] Abdon Flynn MD [address] [place], [place] [address]vd [address] [place] [address] POC from [employer] - approval required Social History Tobacco Use Types Packs/Day Years [...] materials from doctor or pharmacy Never 10/24/2024 [facility] Utilities Answer Date Recorded In the past 12 months has e [employer], gas, oil, or water RECOMBINETICS threatened to shut off services in your [...] and Family Not on file 10/04/2024 Attends [employer] Not on file 10/04 Active Member [...] Recorded Patient Health Questionnaire-2 Score 2 12/05/2022 [facility] [place] of Occupat ional Health - Occupational Stress [...] time in the past 12 m [facility], were you homeless or living in a detention (including now)? 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 Legal Sex Female 4:16 PM CDT Gender [...] Description 04/09/2025 3:00 PM CDT Office Visit [facility] Medical Group Multispecialty Care - [facility] [address] [facility] [place] [address] Abdon Flynn MD [address] [place] [address] [address] [place] [address] documented as of this encounter Visit Diagnoses Not on filedocumented in this encounter Additional Health Concerns Assessment Noted Time PHQ-9 Depression Total Score: 0 12/13/19 22 11:54 AM CDT documented as of this encounter Care Teams Metal Slitter Relationship Specialty Start Date End Date Pawan Echevarria MD [address] [facility] [address] [place] [address] PCP - General FAMILY PRACTICE 04/17/23 documented as of this encounter
--- OUTSIDE RECORDS SUMMARY | 2025-04-07 09:04 | XMS_ITS | Encounter Summary ---
Author Organization [facility] - [facility] Address [facility] [place] [address] Care Team Providers Care Milk Sampler Name Role Phone Gavin Gross MD Primary Care Provider [phone] Pawan Echevarria MD Primary Care Provider [phone] Encounter Details Date Type Department Care Team (Late st Contact Info) Description 12/08/2022 MyChart Message Enc [facility] Medical Group Multispecialty Care - [address] [place] [address] Abdon Flynn MD [address] [place] [address] [address] [place] [address] Rx for Nebulizer Social History Tobacco Use [...] Sex Assigned at Female 10/03/2024 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 Legal Sex Female 4:16 PM CDT Gender [...] Description 04/09/2025 3:00 PM CDT Office Visit [facility] Medical Group Multispecialty Care - [facility] [address] [facility] [place] [address] Abdon Flynn MD [address] [place] [address] [address] [place] [address] documented as of this encounter Visit Diagnoses Not on filedocumented in this encounter Additional Health Concerns Infection Onset Date Last Indicated Resolved Time COVID-19 Rule Out 10/03/2024 10/03/2024 10/03/2024 5:30 PM FLOOR COVERINGS SALESPERSON COVID-19 Rule Out 10/04/2024 10/04/2024 10/04/2024 3:19 AM FLOOR COVERINGS SALESPERSON Influenza - Seasonal 10/04/2024 10/04/2024 025 12:32 AM FLOOR COVERINGS SALESPERSON Assessment Noted Time PHQ-9 Depression Total Score: 0 12/13/19 22 11:54 AM CDT documented as of this encounter Care Teams Milk Sampler Relationship Specialty Start Date End Date Gavin Gross MD [address] [facility] [address] [place] [address] PCP - General FAMILY PRACTICE 07/13/22 04/16/23 Pawan Echevarria MD [address] [facility] [address] [place] [address] PCP - General FAMILY PRACTICE 04/17/23 documented as of this encounter
--- OUTSIDE RECORDS SUMMARY | 2025-04-07 09:04 | XMS_ITS | Encounter Summary ---
Author Organization [facility] Address [facility] [place] [address] Care Team Providers Care Android Ios Developer Name Role Phone Edilberto Crisostomo MD Primary Care Provider [phone] Gavin Gross MD Primary Care Provider [phone] Pawan Echevarria MD Primary Care Provider [phone] Encounter Details Date Type Department Care Team (Late st Contact Info) Description 12/03/2020 [employer] Message Enc [facility] Medical Group Multispecialty Care - [address] [place] [address] Vik, [facility] Provider Provider Social History Tobacco Use [...] Sex Assigned at Female 10/03/2024 2:27 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 Legal Sex Female 4:16 PM CDT Gender Identity Not on file Sexual Orientation Not on file documented as of this encounter Plan of Treatment Upcoming Encounters Date Type Department Care Team (Late st Contact Info) Description 04/09/2025 3:00 PM CDT Office Visit [facility] Medical Group Multispecialty Care - [facility] [address] [facility] [address] [place] [address] Abdon Flynn MD [address] [facility] [address] [place] [address] documented as of this encounter Visit Diagnoses Not on filedocumented in this encounter Additional Health Concerns Infection Onset Date Last Indicated Resolved Time COVID-19 Rule Out 10/03/2024 10/03/2024 10/03/2024 5:30 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 COVID-19 Rule Out 10/04/2024 10/04/2024 10/04/2024 3:19 AM GERIATRIC NURSE Influenza - Seasonal 10/04/2024 10/04/2024 025 12:32 AM GERIATRIC NURSE documented as of this encounter Care Teams Android Ios Developer Relationship Specialty Start Date End Date Edilberto Crisostomo MD [address] [place] [address] PCP - General FAMILY PRACTICE 12/10/17 07/12/22 Gavin Gross MD [address] [facility] [address] [place] [address] PCP - General FAMILY PRACTICE 07/13/22 04/16/23 Pawan Echevarria MD [address] [facility] [address] [place] [address] PCP - General FAMILY PRACTICE 04/17/23 documented as of this encounter
--- OUTSIDE RECORDS SUMMARY | 2025-04-07 09:04 | XMS_ITS | Encounter Summary ---
Author Organization [facility] Address [address] [place] [address] Phone Care Team Providers Care Steel Analyst Name Role Phone Geeta Crisostomo MD Primary Care Provider [phone] Gavin Gross MD Primary Care Provider Pawan Echevarria MD Primary Care Provider [phone] Encounter Details Date Type Department Care Team (Late st Contact Info) Description 02/24/2021 Orders Only [facility] Scanning, Provider Social History Tobacco Use Types Packs/Day Years Used Date Smoking Tobacco: Former Smokeless Tobacco: Never Alcohol Use Standard Drinks/Week Comments No 0 (1 standard drink = 0.6 oz pur e alcohol) Comments Unknown Sex and Gender Information Value Date Recorded Sex Assigned at Not on file Legal Sex Female 3:43 AM BUSINESS CONSULT Gender Identity Female 02/01/2022 8:55 AM CDT [...] on filedocumented in this encounter Care Teams Steel Analyst Relationship Specialty Start Date End Date Geeta Crisostomo MD [address] [place] [address] PCP - General Family Medicine 03/08/18 03/28/22 Gavin Gross MD [address] [place] [address] PCP - General Family Medicine 03/29/22 06/05/23 Pawan Echevarria MD [address] [place] [address] [place] [address] PCP - General Family Medicine 06/06/23 documented as of this encounter
--- OUTSIDE RECORDS SUMMARY | 2025-04-07 09:04 | XMS_ITS | Clinical Summary ---
Author Organization [facility] Virtual Care Address [address] [place] [address] Phone Care Team Providers Care Psychiatric Arnp Name Role Phone Pawan Echevarria MD Primary Care Provider [phone] Allergies No known active allergies Medications calcium [...] CMP checked today. - Spoke with her certified dialysis technician, Dr. Abdon Flynn ([facility], to discuss the possibility of sparing [...] 81 y.o. 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, [...] PRN Cigarette nicotine dependence in remission 11/28 Itgip-7-wjwovangmga deficiency carrier 8 COPD (chronic obstructive pulmonary disease) Encounters Date Type Department Care Team Description 01/12/2025 2:30 PM CDT Office Visit [facility] Medical Group Cardiology [address] [facility] [address] [place] [address] Heaven Garcia NP Nonischemic cardiomyopathy (HCC) (Primary Dx); Reduced ejection fraction concurrent with and due to chronic heart failure (HCC); PVC (premature ventricular contraction); Chronic hypoxic respiratory failure, on home oxygen therapy (HCC); Hospital discharge follow-up from Last 3 Months Immunizations Immunization Administration Dates Next Due Influenza, Unspecified 07/07/2022(Deferr ed: Patient Refused),07/06/2021(Deferred: Patient Refused) Surgical History Surgery Date Site/Laterality Comments PARTIAL HIP ARTHROPLASTY APPENDECTOMY CATARACT EXTRACTION 08/2019 HYSTERECTOMY 2006 JOINT REPLACEMENT Hip Replacement 2004 BREAST SURGERY January 2024 Medical History Medical History Date Comments Cardiac rhythm disturbance Appendix disease Pneumonia Asthma COPD (chronic obstructive pulmonary disease) (HC C) Ear problems HL (hearing loss) Anxiety Heart disease Tuberculosis COPD (chronic obstructive pulmonary disease) (HC C) Bronchiectasis (HCC) Sleep difficulties Cancer (HCC) January 2024 Osteoporosis January 2024 Chronic bronchitis (HCC) Several years ago Family History Medical History Relation Name Comments [...] on file Legal Sex Female 3:43 AM RETAIL SUPPORT ASSOCIATE Gender Identity Female 02/01/2022 8:55 AM CDT Sexual Orientation Straight 02/01/2022 8: 55 AM CDT Obstetrics History Last Filed Vital Signs Vital Sign Reading Time Taken Comments Blood Pressure 124/58 01/12/2025 2:43 PM CDT Pulse 71 01/12/2025 2:43 PM CDT Temperature 36.9 C (98.5 F) 10/04/2022 11:40 AM RETAIL SUPPORT ASSOCIATE Respiratory Rate 20 03/18/2024 11:53 AM CDT Oxygen Saturation 95% 01/12/2025 2:43 PM CDT Inhaled Oxygen Concentration - - Weight 56.7 kg (125 lb) 01/12/2025 2:43 PM CDT Height 162.6 cm (5' 4) 01/12/2025 2:43 PM CDT Body Mass Index 21.46 01/12/2025 2:43 PM CDT Plan of Treatment Health Maintenance Due Date Last Done Comments Osteoporosis Screening-Bone Density Scan 1941 DTaP/Tdap/Td Vaccine (1 - Tdap) 02/14/1952 Hepatitis B Screening 1959 Pneumococcal vaccine 65+ (1 of 2 - PCV) 02/14/1960 Zoster Vaccine (1 of 2) 02/14/1960 Covid-19 Vaccine (3 - Pfizer risk series) 12/17/2020 11/19/2020, 10/26/2020 Depression Screening 10/04/2023 10/04/2022, 03/29/20 22 Fall Risk Assessment 10/04/2023 10/04/2022, 03/29/20 22 Well Visit 65+ 10/04/2023 10/04/2022 Influenza Vaccine (#1) 2025 Insurance MEDICARE FOR LIFE MEDICARE FOR LIFE MEDICARE FOR LIFE Care Teams Psychiatric Arnp Relationship Specialty Start Date End Date Pawan Echevarria MD [address] [place] [address] [place] [address] PCP - General Family Medicine 06/06/23
--- OUTSIDE RECORDS SUMMARY | 2025-04-07 09:04 | XMS_ITS | Encounter Summary ---
Author Organization [facility] Address [facility] [place] [address] Care Team Providers Care Vehicle Check In Clerk Name Role Phone Edilberto Crisostomo MD Primary Care Provider [phone] Gavin Gross MD Primary Care Provider [phone] Pawan Echevarria MD Primary Care Provider [phone] Encounter Details Date Type Department Care Team (Late st Contact Info) Description 03/22/2021 MyChart Message Enc [facility] Multispecialty Care - [address], [address] [place] [address] Abdon Flynn MD [address] [place] [address] [address] [place] [address] Referral Request Social History Tobacco Use Types [...] Sex Assigned at Female 10/03/2024 2:27 PM 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 Legal Sex Female 4:16 PM CDT Gender Identity Not on file Sexual Orientation Not on file documented as of this encounter Plan of Treatment Upcoming Encounters Date Type Department Care Team (Late st Contact Info) Description 04/09/2025 3:00 PM CDT Office Visit [facility] - [facility] [address] [facility] [address] [place] [address] Abdon Flynn MD [address] [facility] [address] [place] [address] documented as of this encounter Visit Diagnoses Not on filedocumented in this encounter Additional Health Concerns Infection Onset Date Last Indicated Resolved Time COVID-19 Rule Out 10/03/2024 10/03/2024 10/03/2024 5:30 PM GENERAL 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 COVID-19 Rule Out 10/04/2024 10/04/2024 10/04/2024 3:19 AM GENERAL 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 Influenza - Seasonal 10/04/2024 10/04/2024 025 12:32 AM GENERAL 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 documented as of this encounter Care Teams Vehicle Check In Clerk Relationship Specialty Start Date End Date Edilberto Crisostomo MD [address] [place] [address] PCP - General FAMILY PRACTICE 12/10/17 07/12/22 Gavin Gross MD [address] [facility] [address] [place] [address] PCP - General FAMILY PRACTICE 07/13/22 04/16/23 [place] [address] [place] [address] [address] [place] [address] PCP - General FAMILY PRACTICE 04/17/23 documented as of this encounter
--- OUTSIDE RECORDS SUMMARY | 2025-04-07 09:04 | XMS_ITS | Encounter Summary ---
Author Organization [facility] Healthcare Address [address] [place] [address] Care Team Providers Care Cold Roll Inspector Name Role Phone Pawan Echevarria MD Primary Care Provider [phone] Encounter Details Date Type Department Care Team (Late st Contact Info) Description 08/24/2024 Orders Only [facility] Health Information Management [address] [place] [id number] Scanning, Provider Social History Tobacco Use Types [...] on file Legal Sex Female 3:43 AM BRUSH HOLDER INSPECTOR Gender Identity Female 02/01/2022 8:55 AM CDT Sexual Orientation Straight 02/01/2022 8: 55 AM CDT documented as of this encounter Plan of Treatment Not on file documented as of this encounter Procedures Procedure Name Priority Date/Time Associated Diagnosis Comments SCAN - RADIOLOGY/IMAGING 08/24/2024 documented in this encounter Results * SCAN - RADIOLOGY/IMAGING (08/24/2024) Anatomical Region Laterality Modality Other us Provider Scanning Final Result documented in this encounter Visit Diagnoses Not on filedocumented in this encounter Care Teams Cold Roll Inspector Relationship Specialty Start Date End Date Pawan Echevarria MD [facility] [facility] [address] [place] [address], [place] [address] PCP - General Family Medicine 06/06/23 documented as of this encounter
[2025-04-07 09:32] LABS: Estimated Glomerular Filt Rate > 60
== END 2025-04-07 08:58 | disposition home or self-care (01) ==
PROVIDERS: PCP Family Medicine; Visit Provider Internal Medicine Hematology & Oncology
DX: R94.8 Abnormal results of function studies of other organs and systems (principal); C79.51 Secondary malignant neoplasm of bone
CPT/HCPCS: 71260; 74177; 78306; A9503; Q9967

== ENCOUNTER 2025-04-10 11:39 | Outpatient (CLI) | payer MEDICARE, OTHER, SELFPAY ==
--- OUTSIDE RECORDS SUMMARY | 2025-04-10 11:42 | XMS_ITS | Clinical Summary ---
Author Organization [facility] Virtual Care Address [address] [place] [phone] Phone Care Team Providers Care Manufacturing Worker Name Role Phone Pawan Echevarria MD Primary Care Provider [phone] Allergies No known active allergies Medications calcium [...] CMP checked today. - Spoke with her laborer/key man, Dr. Abdon Flynn ([facility], to discuss the possibility of sparing [...] 81 y.o. 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 COPD (chronic obstructive pulmonary disease) Encounters Date Type Department Care Team Description 01/12/2025 2:30 PM CDT Office Visit [facility] Medical Group Cardiology [address] [facility] [address] [place] [address] Heaven Garcia NP Nonischemic cardiomyopathy (HCC) (Primary [...] on file Legal Sex Female 3:43 AM DISTRIBUTION COLLECTION OPERATOR Gender Identity Female 02/01/2022 8:55 AM CDT Sexual Orientation Straight 02/01/2022 8: 55 AM CDT Obstetrics History Last Filed Vital Signs Vital Sign Reading Time Taken Comments Blood Pressure 124/58 01/12/2025 2:43 PM CDT Pulse 71 01/12/2025 2:43 PM CDT Temperature 36.9 C (98.5 F) 10/04/2022 11:40 AM DISTRIBUTION COLLECTION OPERATOR Respiratory Rate 20 03/18/2024 11:53 AM CDT [...] FOR LIFE MEDICARE FOR LIFE Care Teams Manufacturing Worker Relationship Specialty Start Date End Date Pawan Echevarria MD [address] [place] [address] [place] [address] PCP - General Family Medicine 06/06/23
--- OUTSIDE RECORDS SUMMARY | 2025-04-10 11:43 | XMS_ITS | Encounter Summary ---
Author Organization [facility] [employer] [facility] Address [address] [place] [address] Care Team Providers Care Special Needs Child Caregiver Name Role Phone Pawan Echevarria MD Primary Care Provider [phone] Encounter Details Date Type Department Care Team (Late Contact Info) Description 04/09/2025 Orders Only [facility] Oncology and Hematology - [address] [place] [address] Warren Vaughn MD [address] [place] [address] Social History Tobacco Use Types Packs/Day Years [...] Description 04/14/2025 2:00 PM CDT Office Visit [facility] Oncology and Hematology - [address] [place] [address] Warren Vaughn MD [address] [place] [address] documented as of this encounter Procedures Procedure Name Priority Date/Time Associated Diagnosis Comments COMPREHENSIVE METABOLIC PANEL Routine 04/09/2025 3:35 PM CDT documented in this encounter Results * COMPREHENSIVE METABOLIC PANEL (04/09/2025 3:35 PM CDT) Blood Warren Vaughn MD CHEMISTRY ORDERABLES Final Resu lt documented in this encounter Visit Diagnoses Not on filedocumented in this encounter Care Teams Special Needs Child Caregiver Relationship Specialty Start Date End Date Pawan Echevarria MD [address] [place] [address] PCP - General Family Practice 11/29/23 documented as of this encounter
--- OUTSIDE RECORDS SUMMARY | 2025-04-10 11:43 | XMS_ITS | Encounter Summary ---
Author Organization [facility] Address [facility] [place] [address] Care Team Providers Care Ocean Biologist Name Role Phone Gavin Gross MD Primary Care Provider [phone] Pawan Echevarria MD Primary Care Provider [phone] Encounter Details Date Type Department Care Team (Late st Contact Info) Description 12/08/2022 MyChart Message Enc [facility] Multispecialty Care - [address] [place] [address] Abdon Flynn MD [address] [place] [address] [address] [place] [address] Rx for Nebulizer Social History Tobacco Use [...] Sex Assigned at Female 10/03/2024 2:27 PM SET MAKING MACHINE OPERATOR Legal Sex Female 4:16 PM [...] Care Team (Late st Contact Info) Description 10/08/2025 3:00 PM SET MAKING MACHINE OPERATOR Office Visit [facility] Mult[facility]pecialty Care - [facility] [address] [facility] [place] [address] Abdon Flynn MD [address] [place] [address] [address] [place] [address] documented as of this encounter Visit Diagnoses Not on filedocumented in this encounter Additional Health Concerns Infection Onset Date Last Indicated Resolved Time COVID-19 Rule Out 10/03/2024 10/03/2024 10/03/2024 5:30 PM SET MAKING MACHINE OPERATOR COVID-19 Rule Out 10/04/2024 10/04/2024 10/04/2024 3:19 AM SET MAKING MACHINE OPERATOR Influenza - Seasonal 10/04/2024 10/04/2024 025 12:32 AM SET MAKING MACHINE OPERATOR Assessment Noted Time PHQ-9 Depression Total Score: 0 12/13/19 22 11:54 AM CDT documented as of this encounter Care Teams Ocean Biologist Relationship Specialty Start Date End Date Gavin Gross MD [address] [facility] [address] [place] [address] PCP - General FAMILY PRACTICE 07/13/22 04/16/23 Pawan Echevarria MD [address] [facility] [address] [place] [address] PCP - General FAMILY PRACTICE 04/17/23 documented as of this encounter
--- OUTSIDE RECORDS SUMMARY | 2025-04-10 11:43 | XMS_ITS | Encounter Summary ---
Author Organization [facility] Address [facility] [place] [address] Care Team Providers Care Bindery Chief Name Role Phone Edilberto Crisostomo MD Primary Care Provider [phone] Gavin Gross MD Primary Care Provider [phone] Pawan Echevarria MD Primary Care Provider [phone] Encounter Details Date Type Department Care Team (Late st Contact Info) Description 03/22/2021 MyChart Message Enc [facility] Multispecialty Care - [address], [address] [place] [address] Abdon Flynn MD [address] [place] [address] [address] [place] [address] Referral Request Social History Tobacco Use Types [...] Sex Assigned at Female 10/03/2024 2:27 PM DIRECTOR OF OPERATIONS Legal Sex Female 4:16 PM CDT Gender Identity Not on file Sexual Orientation Not on file documented as of this encounter Plan of Treatment Upcoming Encounters Date Type Department Care Team (Late st Contact Info) Description 10/08/2025 3:00 PM DIRECTOR OF OPERATIONS Office Visit [facility] Multispecialty Care - [facility] [address] [facility] [place] [address] Abdon Flynn MD [address] [facility] [address] [place] [address] documented as of this encounter Visit Diagnoses Not on filedocumented in this encounter Additional Health Concerns Infection Onset Date Last Indicated Resolved Time COVID-19 Rule Out 10/03/2024 10/03/2024 10/03/2024 5:30 PM DIRECTOR OF OPERATIONS COVID-19 Rule Out 10/04/2024 10/04/2024 10/04/2024 3:19 AM DIRECTOR OF OPERATIONS Influenza - Seasonal 10/04/2024 10/04/2024 025 12:32 AM DIRECTOR OF OPERATIONS documented as of this encounter Care Teams Bindery Chief Relationship Specialty Start Date End Date Edilberto Crisostomo MD [address] [place] [address] PCP - General FAMILY PRACTICE 12/10/17 07/12/22 Gavin Gross MD [address] [facility] [address] [place] [address] PCP - General FAMILY PRACTICE 07/13/22 04/16/23 Pawan Echevarria MD [address] [place] [address] [address] [place] [address] PCP - General FAMILY PRACTICE 04/17/23 documented as of this encounter
--- OUTSIDE RECORDS SUMMARY | 2025-04-10 11:43 | XMS_ITS | Encounter Summary ---
Author Organization [facility] Address [address] [place] [address] Phone Care Team Providers Care Station Worker Name Role Phone Geeta Crisostomo MD Primary Care Provider [phone] Gavin Gross MD Primary Care Provider [phone] Pawan Echevarria MD Primary Care Provider [phone] Encounter Details Date Type Department Care Team [...] on file Legal Sex Female 3:43 AM FLAKER OPERATOR Gender Identity Female 02/01/2022 8:55 AM [...] on filedocumented in this encounter Care Teams Station Worker Relationship Specialty Start Date End Date Geeta Crisostomo MD [address] [place] [address] PCP - General Family Medicine 03/08/18 03/28/22 Gavin Gross MD [address] [place] [address] PCP - General Family Medicine 03/29/22 06/05/23 Pawan Echevarria MD [address] [place] [address] [place] [address] PCP - General Family Medicine 06/06/23 documented as of this encounter
--- OUTSIDE RECORDS SUMMARY | 2025-04-10 11:43 | XMS_ITS | Clinical Summary ---
Author Organization [facility] Address [facility] [place] [address] Care Team Providers Care Merchant Seaman Name Role Phone Pawan Echevarria MD Primary Care Provider [phone] Allergies Active Allergy Reactions Criticality Noted Date Comments Ipratropium Unknown 07/04/2018 Levofloxacin Hallucinations Medium 10/06/2024 [place] Patient reported during admission 09/2024 after [...] solutionIndication s:Mixed simple and mucopurulent chronic bronchitis ([facility]) Take 4 mLs by nebulization as needed [...] 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 Bronchiectasis ([facility]) 11/28/2018 Cigarette nicotine dependence in remission 11/28 Productive cough 11/28/2018 Malaise 11/28/2018 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 COPD (chronic obstructive pu lmonary disease) ([facility]) 03/05/2018 History of Pseudomonas pneumonia 01/27/2018 Pleural thickening 01/27/2018 Bacterial infection 12/13/2017 Chronic cough 12/10/2017 Asthma exacerbation ([facility]) 12/10/2017 Wheeze 12/10/2017 Resolved Problems Problem Noted Date Diagnosed Date Resolved Date Encounter for preventive health examination 11/07/2017 05/28/2020 Encounters Date Type Department Care Team Description 04/09/2025 3:00 PM CDT Office Visit [facility] Medical [facility] Multispecialty Care - [address], [address] [place] [address] Abdon Flynn MD Follow Up 04/09/2025 Travel 03/31/2025 Scan [facility] Scanned, Doc [facility] 03/02/2025 Scan [facility] INFO [facility] Scanned, Doc Med Group 01/29/2025 Scan [facility] INFO [facility]VCS Scanned, Doc Med Group from Last 3 Months Immunizations Immunization Administration Dates Next Due PFIZER COVID-19 (ORIGINAL FO RMULATION, PURPLE CAP) mRNA, LNP-S, PF, 30 MCG/0.3 ML DOSE 11/19/2020,10/26/2020 Social History Tobacco Use Types Packs/Day Years Used Date Smoking Tobacco: Former Cigarettes 0.3 7 0 02/25/1974 - 02/26/1980 Smokeless Tobacco: Never [...] doctor or pharmacy Never 10/24/[address] [facility] Utilities Answer Date Recorded In the past 12 months has e [employer], gas, oil, or water [employer] threatened to shut off services in your [...] and Family Not on file 10/04/2024 Attends Anabaptist Services Not on file 10/04 Active Member [...] Recorded Patient Health Questionnaire-2 Score 2 12/05/2022 [facility] [place] of Occupat ional Health - Occupational Stress [...] time in the past 12 m [facility], were you homeless or living in a long term (including now)? 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 2:27 PM BUTANE COMPRESSOR OPERATOR Legal Sex Female 4:16 PM CDT Gender Identity Not on file Sexual Orientation Not on file Last Filed Vital Signs Vital Sign Reading Time Taken Comments Blood Pressure 131/71 04/09/2025 2:49 PM CDT Pulse 78 04/09/2025 2:49 PM CDT Temperature 36.6 C (97.9 F) 10/14/2024 1:35 PM BUTANE COMPRESSOR OPERATOR Respiratory Rate 16 04/09/2025 2:49 PM CDT Oxygen Saturation 94% 04/09/2025 2:49 PM CDT 4L Inhaled Oxygen Concentration - - Weight 54 kg (119 lb) 04/09/2025 2:49 PM CDT Height 162.6 cm (5' 4) 04/09/2025 2:49 PM CDT Body Mass Index 20.43 04/09/2025 2:49 PM CDT Plan of Treatment Upcoming Encounters Date Type Department Care Team (Late st Contact Info) Description 10/08/2025 3:00 PM BUTANE COMPRESSOR OPERATOR Office Visit [facility] Medical Group Multispecialty Care - [facility] [address] [facility] [place] [address] Abdon Flynn MD [address] [facility] [address] [place] [address] Health Maintenance Due Date Last Done Comments [...] 5 season) 2024 11/19/2020, 10/26/2020 PHQ-2 (Physician [place]) 09/17/2024 10/25/2023 Meningococcal B Vaccine Aged Out No l onger eligible based on patient's age to complete this topic Meningococcal Vaccine Aged Out No emeli jennifer eligible based on patient's age to complete this topic RSV Immunizations Under 20 Months Aged Out No longer eligible b ased on patient's age to complete this topic [place] [address] [place] [address] MEDICARE Advance Directives * Full Code (Latest Code Status on File) Date Activated Date Inactivated Comments 10/09/2024 3:14 PM * Full Code Date Activated Date Inactivated Comments 10/04/2024 12:11 AM 10/08/2024 6:04 PM Care Teams Merchant Seaman Relationship Specialty Start Date End Date Pawan Echevarria MD [address] [place] [address] [place] [address] PCP - General FAMILY PRACTICE 04/17/23
--- OUTSIDE RECORDS SUMMARY | 2025-04-10 11:43 | XMS_ITS | Encounter Summary ---
Author Organization [facility] - [facility] Address [facility] [place] [address] Care Team Providers Care Shredded Filler Hopper Feeder Name Role Phone Pawan Echevarria MD Primary Care Provider [phone] Encounter Details Date Type Department Care Team (Late st Contact Info) Description 11/18/2024 MyChart Message Enc [facility] Medical Group Multispecialty Care - [facility] [address] [facility] [place] [phone] Abdon Flynn MD [address] [place], [place] [address]vd [address] [place] [address] Move Up Appointment Social History Tobacco Use [...] materials from doctor or pharmacy Never 10/24/2024 [facility] Utilities Answer Date Recorded In the past [...] and Family Not on file 10/04/2024 Attends Cheondoism Services Not on file 10/04 Active Member [...] Recorded Patient Health Questionnaire-2 Score 2 12/05/2022 [facility] [place] of Occupat ional Health - Occupational Stress [...] any time in the past 12 m [facility], were you homeless or living in a intermediate (including now)? 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 2:27 PM AUTOMATIC WASHER MECHANIC Legal Sex Female 4:16 PM CDT Gender [...] Assessment Author Status No 10/04/2024 5:00 PM AUTOMATIC WASHER MECHANIC Nighat Prado RN Active documented as of this encounter Mental Status * Because of a physical, mental, or emotional condition, do you have serious difficulty concentrating, remembering, or making decisions? Answer Entry Date Author Status No 10/04/2024 5:00 PM AUTOMATIC WASHER MECHANIC Nighat Prado RN Active documented in this encounter Plan of Treatment Upcoming Encounters Date Type Department Care Team (Late st Contact Info) Description 10/08/2025 3:00 PM AUTOMATIC WASHER MECHANIC Office Visit [facility] Medical Group Multispecialty Care - [facility] [address] [facility] [place] [address] Abdon Flynn MD 3[address] [facility] [address] [place] [address] documented as of this encounter Visit Diagnoses Not on filedocumented in this encounter Additional Health Concerns Assessment Noted Time PHQ-9 Depression Total Score: 0 12/13/19 22 11:54 AM CDT documented as of this encounter Care Teams Shredded Filler Hopper Feeder Relationship Specialty Start Date End Date Pawan Echevarria MD [address] [facility] [address] [place] [address] PCP - General FAMILY PRACTICE 04/17/23 documented as of this encounter
--- OUTSIDE RECORDS SUMMARY | 2025-04-10 11:43 | XMS_ITS | Encounter Summary ---
Author Organization [facility] Address [address] [place] [address] Care Team Providers Care Emery Grinder Name Role Phone Gavin Gross MD Primary Care Provider [phone] Pawan cEhevarria MD Primary Care Provider [phone] Encounter Details Date Type Department Care Team (Late Contact Info) Description 03/14/2023 MyChart Message Enc [facility] Medical [facility] - [facility] [address] [place], [place] [address] [place] Provider Air Quality Message Social History Tobacco [...] Sex Assigned at Female 10/03/2024 2:27 PM STRAWHAT INSPECTOR AND PACKER Legal Sex Female 4:16 PM CDT Gender Identity Not on file Sexual Orientation Not on file documented as of this encounter Plan of Treatment Upcoming Encounters Date Type Department Care Team (Late Contact Info) Description 10/08/2025 3:00 PM STRAWHAT INSPECTOR AND PACKER Office Visit [facility] Medical [facility] Multispecialty Care - [facility] [address] [facility] [place] [address] Abdon Flynn MD [address] [facility] [address] [place] [address] documented as of this encounter Visit Diagnoses Not on filedocumented in this encounter Additional Health Concerns Infection Onset Date Last Indicated Resolved Time COVID-19 Rule Out 10/03/2024 10/03/2024 10/03/2024 5:30 PM STRAWHAT INSPECTOR AND PACKER COVID-19 Rule Out 10/04/2024 10/04/2024 10/04/2024 3:19 AM STRAWHAT INSPECTOR AND PACKER Influenza - Seasonal 10/04/2024 10/04/2024 025 12:32 AM STRAWHAT INSPECTOR AND PACKER Assessment Noted Time PHQ-9 Depression Total Score: 0 12/13/19 22 11:54 AM CDT documented as of this encounter Care Teams Emery Grinder Relationship Specialty Start Date End Date Gavin Gross MD [address] [facility] [address] [place] [address] PCP - General FAMILY PRACTICE 07/13/22 04/16/23 Pawan Echevarria MD [address] [facility] [address] [place] [address] PCP - General FAMILY PRACTICE 04/17/23 documented as of this encounter
--- OUTSIDE RECORDS SUMMARY | 2025-04-10 11:43 | XMS_ITS | Referral Summary ---
Author Organization [facility] Virtual Care Address [address] [place] [address] Phone Care Team Providers Care Lathe Set Up Person Name Role Phone Pawan Echevarria MD Primary Care Provider [phone] Encounters Date Type Department Care Team Description 01/12/2025 2:30 PM CDT Office Visit [facility] Medical Group Cardiology [address] [place] [address] Heaven Gacria NP Nonischemic cardiomyopathy (HCC) (Primary Dx); Reduced [...] CMP checked today. - Spoke with her project crew worker, Dr. Abdon Flynn ([facility] Medical Group Multispecialty Care [facility], to discuss the possibility of sparing inhales [...] 81 y.o. 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 8 COPD (chronic obstructive pulmonary [...] on file Legal Sex Female 3:43 AM FACILITIES OPERATOR Gender Identity Female 02/01/2022 8:55 AM CDT Sexual Orientation Straight 02/01/2022 8: 55 AM CDT Last Filed Vital Signs Vital Sign Reading Time Taken Comments Blood Pressure 124/58 01/12/2025 2:43 PM CDT Pulse 71 01/12/2025 2:43 PM CDT Temperature 36.9 C (98.5 F) 10/04/2022 11:40 AM FACILITIES OPERATOR Respiratory Rate 20 03/18/2024 11:53 AM CDT Oxygen Saturation 95% 01/12/2025 2:43 PM CDT Inhaled Oxygen Concentration - - Weight 56.7 kg (125 lb) 01/12/2025 2:43 PM CDT Height 162.6 cm (5' 4) 01/12/2025 2:43 PM CDT Body Mass Index 21.46 01/12/2025 2:43 PM CDT Plan of Treatment [place] [address] MEDICARE [employer] MEDICARE FOR LIFE MEDICARE FOR LIFE Care Teams Lathe Set Up Person Relationship Specialty Start Date End Date Pawan Echevarria MD [address] [place] [address] [address] PCP - General Family Medicine 06/06/23
--- OUTSIDE RECORDS SUMMARY | 2025-04-10 11:43 | XMS_ITS | Encounter Summary ---
Author Organization [facility] - [facility] Address [facility] [place] [address] Care Team Providers Care Steam Distribution Supervisor Name Role Phone Pawan Echevarria MD Primary Care Provider [phone] Encounter Details Date Type Department Care Team (Late st Contact Info) Description 10/03/2024 MyChart Message Enc [facility] Medical Group Multispecialty Care - [facility] [address] [facility] [place] [phone] Abdon Flynn MD [address] [place], [place] [address]vd [address] [place] [address] Fever/Shortness of Breath Social History Tobacco Use Types Packs/Day Years Used Date Smoking Tobacco: Former Cigarettes 0.3 6 0 02/25/1974 - 02/26/1980 Smokeless Tobacco: Never Alcohol Use Standard Drinks/Week Comments Yes 0 (1 standard drink = 0.6 oz pur e alcohol) minimal rare use [facility] Utilities Answer Date Recorded In the [...] and Family Not on file 10/04/2024 Attends Orthodox Services Not on file 10/04 Active Member [...] Recorded Patient Health Questionnaire-2 Score 2 12/05/2022 [facility] of Occupat ional Health - Occupational [...] any time in the past 12 m [facility], were you homeless or living in a correction (including now)? 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 2:27 PM ROCKET MOTOR TESTER Legal Sex Female 4:16 PM CDT Gender [...] Status No Risk Indicated 10/03/2024 2:19 PM ROCKET MOTOR TESTER Jethro Marin RN Active * Wilkes Suicide Severity Rating Scale (Screener/Recent Self-Report) Question [...] or making decisions? No 10/04/2024 5:00 PM ROCKET MOTOR TESTER Nighat Prado R N Active documented in this encounter Plan of Treatment Upcoming Encounters Date Type Department Care Team (Late st Contact Info) Description 10/08/2025 3:00 PM ROCKET MOTOR TESTER Office Visit [facility] Medical Group Multispecialty Care - [facility] [address] [facility] [place] [address] Abdon Flynn MD [address] [facility] [address] [place] [address] documented as of this encounter Visit Diagnoses Not on filedocumented in this encounter Additional Health Concerns Infection Onset Date Last Indicated Resolved Time COVID-19 Rule Out 10/03/2024 10/03/2024 10/03/2024 5:30 PM ROCKET MOTOR TESTER COVID-19 Rule Out 10/04/2024 10/04/2024 10/04/2024 3:19 AM ROCKET MOTOR TESTER Influenza - Seasonal 10/04/2024 10/04/2024 025 12:32 AM ROCKET MOTOR TESTER Assessment Noted Time PHQ-9 Depression Total Score: 0 12/13/19 22 11:54 AM CDT documented as of this encounter Care Teams Steam Distribution Supervisor Relationship Specialty Start Date End Date Pawan Echevarria MD [address] [facility] [address] [place] [address] PCP - General FAMILY PRACTICE 04/17/23 documented as of this encounter
--- OUTSIDE RECORDS SUMMARY | 2025-04-10 11:43 | XMS_ITS | Encounter Summary ---
Author Organization [facility] Address [address] [place] [address] Phone Care Team Providers Care Brush Worker Name Role Phone Geeta Crisostomo MD Primary Care Provider Gavin Gross MD Primary Care Provider [phone] Pawan Echevarria MD Primary Care Provider [phone] Encounter Details Date Type Department Care Team [...] on file Legal Sex Female 3:43 AM ASSET PROTECTION MANAGER Gender Identity Female 02/01/2022 8:55 AM [...] on filedocumented in this encounter Care Teams Brush Worker Relationship Specialty Start Date End Date Geeta Crisostomo MD [address] [place] [address] PCP - General Family Medicine 03/08/18 03/28/22 Gavin Gross MD [address] [place] [address] PCP - General Family Medicine 03/29/22 06/05/23 Pawan Echevarria MD [address] [place] [address] [place] [address] PCP - General Family Medicine 06/06/23 documented as of this encounter
--- OUTSIDE RECORDS SUMMARY | 2025-04-10 11:43 | XMS_ITS | Clinical Summary ---
Author Organization [facility] Negra Priestolga Address [address] [place] [address] Care Team Providers Care Manager Women Name Role Phone Pawan Echevarria MD Primary Care Provider [phone]- [phone] Allergies Active Allergy Reactions Criticality Noted Date [...] Date Type Department Care Team Description 04/09/2025 Orders Only [facility] Oncology and Hematology - [address] [place] [address] Warren Vaughn MD 04/01/2025 External Device Data STL ABSTRACTION Provider, Abstract 04/01/2025 External Device Data STL ABSTRACTION Provider, Abstract 04/01/2025 External Device Data ST[facility] ABSTRACTION Provider, Abstract 03/31/2025 External Device Data ST[facility] ABSTRACTION Provider, Abstract 03/04/2025 External Device Data ST[facility] ABSTRACTION Provider, Abstract 03/03/2025 External Device Data STL ABSTRACTION Provider, Abstract 02/25/2025 2:30 PM CDT Office Visit [facility] Oncology and Hematology - [address] [place] [phone] Warren Vaughn MD Metastasis to bone (CMS/HCC) (Primary Dx) 02/20/2025 Orders Only [facility] Oncology and Hematology - [address] [place] [address] Warren Vaughn MD 2025 Orders Only [facility] Oncology and Hematology - [address] [place] [phone] Warren Vaughn MD 02/05/2025 External Device Data STL ABSTRACTION Provider, Abstract 02/04/2025 Refill [facility] Oncology and Hematology - [address] [place] [phone] Warren Vaughn MD 02/03/2025 External Device Data STL ABSTRACTION Provider, Abstract 02/03/2025 Specialty Pharmacy [facility] [address] [place] [phone] Jolene Lozoya, PHARMACIST 02/03/2025 Specialty Pharmacy [facility] [address] [place] [phone] Jolene Lozoya, PHARMACIST Specialty Pharmacy Refill Coordination 01/22/2025 11:30 AM CDT Office Visit [facility] Oncology and Hematology - [address] [place] [address] Warren Vaughn MD Metastasis to bone (CMS/HCC) (Primary Dx) 01/20/2025 Orders Only [facility] Oncology and Hematology - [address] [place] [address] Warren Vaughn MD 01/16/2025 Orders Only [facility] Oncology and Hematology - [address] [place] [address] Warren Vaughn MD 01/15/2025 Orders Only [facility] Oncology and Hematology - [address] [place] [address] Warren Vaughn MD 01/09/2025 Specialty Pharmacy [facility] Special[facility] [facility] [place] [phone] Jolene Lozoya, PHARMACIST Specialty Pharmacy Refill Coordination [...] Description 04/14/2025 2:00 PM CDT Office Visit [facility] Oncology and Hematology - [address] [facility] [address] [place] [address] Warren Vaughn MD [address] [facility] [address] [place] [address] Health Maintenance Due Date Last [...] METABOLIC PANEL Routine 04/09/2025 3:35 PM CDT CANCER ANTIGEN 15-3 Routine 02/12/2025 1 2:19 PM CDT COMPREHENSIVE METABOLIC PANEL Routine 02/12/2025 11:27 AM CDT CBC WITH DIFFERENTIAL Routine 02/12/2025 8:03 AM CDT CBC WITH DIFFERENTIAL Routine 01/15/2025 4:27 PM CDT COMPREHENSIVE METABOLIC PANEL Routine 01/15/2025 1:29 PM CDT CANCER ANTIGEN 15-3 Routine 01/15/2025 1 2:58 PM CDT from Last 3 Months Results * COMPREHENSIVE METABOLIC PANEL (04/09/2025 3:35 PM CDT) Only the most recent of3 resultswithin the time period is included. Blood Warren Vaughn MD CHEMISTRY ORDERABLES Final Resu lt * CANCER ANTIGEN 15-3 (02/12/2025 12:19 PM CDT) Only the most recent of2 resultswithin the time period is included. Blood Warren Vaughn MD CHEMISTRY ORDERABLES Final Resu lt * CBC WITH DIFFERENTIAL (02/12/2025 8:03 AM CDT) Only the most recent of2 resultswithin the time period is included. Blood Warren Vaughn MD HEMATOLOGY ORDERABLES Final Res ult from Last 3 Months Insurance MEDICARE PART A AND B [employer] Care Teams Manager Women Relationship Specialty Start Date End Date Pawan Echevarria MD [address] [place] [phone] PCP - General Family Practice 11/29/23
--- OUTSIDE RECORDS SUMMARY | 2025-04-10 11:43 | XMS_ITS | Encounter Summary ---
Author Organization [facility] Address [facility] [place] [address] Care Team Providers Care Talent Development Manager Name Role Phone Pawan Echevarria MD Primary Care Provider [phone] Encounter Details Date Type Department Care Team (Late st Contact Info) Description 12/31/2024 MyChart Message Enc [facility] Medical Group Multispecialty Care - [facility] [address] [facility] [place] [address] Abdon Flynn MD [address] [place], [place] [address] [address] [place] [address] POC from [employer] - approval required Social [...] from doctor or pharmacy Never 10/24/2024 [facility] Utilities Answer Date Recorded In the past 12 months has e [employer], gas, oil, or water [employer] threatened to shut off services in your [...] and Family Not on file 10/04/2024 Attends Islam Services Not on file 10/04 Active Member [...] Recorded Patient Health Questionnaire-2 Score 2 12/05/2022 [facility] [place] of Occupat ional Health - Occupational Stress [...] any time in the past 12 m [facility], were you homeless or living in a halfway (including now)? 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 2:27 PM CHORUS DANCER Legal Sex Female 4:16 PM CDT Gender [...] Assessment Author Status No 10/04/2024 5:00 PM CHORUS DANCER Nighat Praod RN Active documented as of this encounter Mental Status * Because of a physical, mental, or emotional condition, do you have serious difficulty concentrating, remembering, or making decisions? Answer Entry Date Author Status No 10/04/2024 5:00 PM CHORUS DANCER Nighat Prado RN Active documented in this encounter Plan of Treatment Upcoming Encounters Date Type Department Care Team (Late st Contact Info) Description 10/08/2025 3:00 PM CHORUS DANCER Office Visit [facility] Medical Group Multispecialty Care - [facility] [address] [facility] [place] [address] Abdon Flynn MD [address] [place] [address] [address] [place] [address] documented as of this encounter Visit Diagnoses Not on filedocumented in this encounter Additional Health Concerns Assessment Noted Time PHQ-9 Depression Total Score: 0 12/13/19 22 11:54 AM CDT documented as of this encounter Care Teams Talent Development Manager Relationship Specialty Start Date End Date Pawan Echevarria MD [address] [facility] [address] [place] [address] PCP - General FAMILY PRACTICE 04/17/23 documented as of this encounter
--- OUTSIDE RECORDS SUMMARY | 2025-04-10 11:43 | XMS_ITS | Encounter Summary ---
Author Organization [facility] Address [address] [place] [address] Care Team Providers Care Clinical Trials Data Coordinator Name Role Phone Pawan Echevarria MD Primary Care Provider [phone]- [phone] Encounter Details Date Type Department Care Team (Latest Contact Info) Description 04/09/2025 Travel Social History Tobacco Use Types Packs/Day Years [...] materials from doctor or pharmacy Never 10/24/2024 [facility] Utilities Answer Date Recorded In the past 12 months has th e [employer], gas, oil, or water [employer] threatened to shut off services in your [...] any time in the past 12 m [facility], were you homeless or living in a half-way (including now)? 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 2:27 PM CHICKEN PICKER Legal Sex Female 4:16 PM CDT Gender [...] st Contact Info) Description 10/08/2025 3:00 PM CHICKEN PICKER Office Visit [facility] Medical Group Multispecialty Care - [facility] [address] [place] [address] Abdon Flynn MD [address]rd [facility] [address] [place] [address] documented as of this encounter Visit Diagnoses Not on filedocumented in this encounter Additional Health Concerns Assessment Noted Time PHQ-9 Depression Total Score: 0 12/13/19 22 11:54 AM CDT documented as of this encounter Care Teams Clinical Trials Data Coordinator Relationship Specialty Start Date End Date Pawan Echevarria MD [address] [facility] [address] [place] [address] PCP - General FAMILY PRACTICE 04/17/23 documented as of this encounter
--- OUTSIDE RECORDS SUMMARY | 2025-04-10 11:43 | XMS_ITS | Encounter Summary ---
Author Organization [facility] Address [facility] [place] [address] Care Team Providers Care Fire Protection Equipment Technician Name Role Phone Pawan Echevarria MD Primary Care Provider [phone]- [phone] Reason for Visit * Reason Comments Follow Up Encounter Details Date Type Department Care Team (Late st Contact Info) Description 04/09/2025 3:00 PM CDT Office Visit [facility] Medical Group Multispecialty Care - [address], [address] [place] [id number] Abdon Flynn MD [address] [place] [address] [address] [place] [address] Follow Up Social History Tobacco Use Types Packs/Day Years [...] doctor or pharmacy Never 10/24/2024 [facility] Utilities Answer Date Recorded In the past [...] and Family Not on file 10/04/2024 Attends Congregation Services Not on file 10/04 Active Member [...] Recorded Patient Health Questionnaire-2 Score 2 12/05/2022 [facility] of Occupat ional Health - Occupational Stress [...] any time in the past 12 m [facility], were you homeless or living in a nursing home (including now)? 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 Sex Female 4:16 PM CDT Gender Identity Not on file Sexual Orientation Not on file documented as of this encounter Last Filed Vital Signs Vital Sign Reading Time Taken Comments Blood Pressure 131/71 04/09/2025 2:49 PM CDT Pulse 78 04/09/2025 2:49 PM CDT Temperature - - Respiratory Rate 16 04/09/2025 2:49 PM CDT Oxygen Saturation 94% 04/09/2025 2:49 PM CDT 4L Inhaled Oxygen Concentration - - Weight 54 kg (119 lb) 04/09/2025 2:49 PM CDT Height 162.6 cm (5' 4) 04/09/2025 2:49 PM CDT Body Mass Index 20.43 04/09/2025 2:49 PM CDT documented in this encounter Functional Status * Are you [...] Caputo RN Active documented in this encounter Progress Notes * Abdon Flynn MD - 04/09/2025 3:00 PM CDT [facility] PULMONARY MEDICINE History Chief Complaint Patient presents with Follow Up 85-year-old white female born in [place] former smoker with past medical history of asthma, COPD, bronchiectasis, and alpha-1 antitrypsin carrier status presents for follow up. 11/28/2018: office visit; AEBronchiectasis; returned from [place] last week, notes a 4 day history of worsening breathlessness and cough productive of yellow sputum; worse after getting off the plane;noted recent sick contacts; notes slight improvement over past 36 hours 12/26/2018: office visit; leaves for [place] on 12/30; going to see sick nephew anaplastic astrocytoma (glioblastoma family); now taking astragalus herbal supplement; had taken levofloxacin prior to trip 04/24/2019: OV; notes breathing well; noted difficulty tolerating spiriva 10/30/2019: OV; notes breathing well at present; no complaints; had noted self- limited uri [id number]; notes planning on going back to [place] 01/202002/01/2020: OSH; HTN urgency; echo with EF 35-40%, DD1, moderate MR, mild TR; C 02/01 EF 45%; clean coronaries; symptomatic PVCs attributed to emotional stress; had witnessed a cardiac arrest in [place] end of 10/201904/14/2020: OV; notes breathing at baseline; compliant with meds; for PFT results 06/03/2020: Telephone call; noted increased sputum; sputum cultured 06/2020: Sputum resulted + pseudomonas; arranged inhaled teresa x 1 month 07/2020: AFB resulted +MAC 08/10/2020: VV; notes breathing well; mainly notes periodic worsening of sinus disease; to discuss +MAC sputum 09/09/2020: ID visit with Dr. Bueno; MAC treatment deferred, given 10d of Levofloxacin 500mg 12/15/2020: OV; notes coughing up yellow sputum about once daily; more after exercise; seen by ID Dr. Higgins at [facility]; upcoming ct, pft 01/11/2021: OV; notes breathing well on Anoro; AFB sputums pending; for HRCT results [facility] of [facility], given 14d of cipro 03/15/2021: OSH [facility] visit; sputum again + pseudomonas; started on levofloxacin x 4 weeks, then 2 weeks off; now 2 weeks back on 05/12/2021: VV, since last visit; treated with 2 prolonged courses of quinolones (cipro x 28, LQ x 14). 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 Notes breathing well at present, still with scant sputum production 07/28/2021: OV; husbands cancer now with mets to the brain; notes ongoing cough with phlegm production; however notes improvement with OTC Angocin (importing from [place]); poorly tolerant of acapella; requesting VEST 12/12/2021: OV: notes doing well with her VEST; currently on hospice; no exacerbations since last visit 12/29/2021: John 02/01/2022; OSH; [facility]; given LQ 750mg x 14 days; reports not taking 03/2022: Spent the month in [place] 07/13/2022: OV; notes breathing slightly worse than 6 months ago; admits to slacking on vest, hypertonic nebs a bit following husbands ; notes cough near baseline; no significant purulent sputumproduction 12/05/2022: OV; notes at OSH ED 2 weeks ago; p/w chest pain; told anxiety; took emergency ABx 3 weeks ago given increased green sputum production; using vest only 3x weekly; for PFT results; notes confusion over med regimen; planning on return visit to [place] next month x 3 weeks. 03/30/2023: PCP visit; bronchitis symptoms; zpak; cxr without acute change 04/17/2023: OV; notes breathing well at present since having been more diligent with nebs/vest; leaving for [place] 04/26; not planning on bringing vest; started on 3x weekly azithro for next month while abroad without vest; 131lbs 10/25/2023: OV; noted developing diarrhea with addition of 3x weekly azithromycin; notes doing wellat present; moved since last visit; moved in with daughter, sold her house to her other daughter; TTE with EF 35% since last visit; started on jardiance/entresto; notes dealing with depression, anhedonia; new left axillary lymphadenopathy palpated on exam; 127lbs 11/21/2023: Left breast and axillary lymph node biopsy at OSH 11/22/2023: OV; notes 3 day history of worsening cough, congestion; febrile at home; for PFT/6MWT; discussed O2 requirement 01/30/2024: OSH; L lumpectomy, sentinel lymph node biopsy; +metastatic invasive ductal carcinoma 05/08/2024: OV; since last visit; traveled to [place] with family; notes having declined radiation and further cancer treatment at this time. Notes ongoing cough, sputum production; started taking OTC herbal respiratory supplement; discussed plan to start Tezspire for severe persistent asthma symptoms; mucous plugging, airway hyperreactivity; instructed on at home self administration 09/11/2024: OV: stopped Tezspire since last visit; patient request given improvement in symptoms; hospitalized at OSH earlier this month for UTI; notes breathing well at present discussed oxygen use in various scenarios. Has moved twice recently, now at [facility] 10/03-: JANA; influenza A+, AECOPD 12/04-: OSH; hypoxic/hypercarbic respiratory failure; increasing back pain; T6-7 fracture 12/15-12/21/2024: OSH; hypoxic/hypercarbic respiratory failure; AECHF, treated for CAP; suspected worsening hypoventilation with opiate use for pain; dc'd with NIV; 2LPM rest/qhs, 4LPM exertion 12/24/2024: OV; hospital follow up; discussed NIV, hypercarbia not unanticipated with lung function, opiates, etc; having difficulty with anoro, plan transition to yupelri, formoterol; plan for eventual CP rehab at [facility]; now following with oncology at [facility]; plan for chemotherapy; need to repeat 6MWT; dc'd without enough ambulatory O2 04/09/2025: OV; on Ibrance for breast cancer with mets to bone; notes doing well on nebs, denies use of VEST; started CP rehab at [facility]; notes may be going to [place] this May At initial encounter 2019: [place] [facility] Notes having been treated for latent tuberculosis as a child while in [facility]; reportedly bovine TB Denied many breathing issues throughout her youth, reported that she was able to swim [place] the [place] Notes worsening of her breathing circa age 51; developed chronic bronchitis, diagnosed with asthma Diagnosed bronchiectasis/pseudomonas 2017; noted poor tolerance of levofloxacin; nightmares, neuropathy, etc Denies dyspnea on exertion Denies cough, sputum production Notes occasional wheezing when dyspneic and following heavy exertion Denies chest pain, palpitations Denies fever, chills, night sweats Denies weight change, hemoptysis Notes occasional seasonal/environmental allergies Notes dogs, smoke, and fumes disturb her breathing Denies GERD, notes infrequent sensation of aspiration Former smoker; quit circa 1974; less than 10 pack year history 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 -Bilateral bronchiectasis, most notable in the anterior lung zones, unchanged. -Cystic bronchiectasis in the superior segment of right lower lobe again identified. -Associated mucous plugging and bronchial wall thickening again identified. -Bilateral scattered tree-in-bud opacities are grossly unchanged. -Biapical pleural-parenchymal scarring. -No suspicious lung mass or consolidation. OSH PET/CT 12/09/2024: -FDG avidity within the left axilla, left fifth rib, right scapula and T6-7 concerning for osseous metastatic disease Testing/Data reviewed: A1AT MS 179; 02/201812/10/2017: Sputum growth of Pseudomonas and H. Parainfluenzae 06/04/2020: sputum afb+ MAC 01/28/2021: OSH sputum + pseudomonas 05/17/2021: OSH sputum +pseudomonas; afb negative 02/07/2022: OSH sputum; normal kole; afb negative; eos 100 12/06/2022: sputum +PSAR 11/22/2023: sputum +NTM-MAC, PSAR TTE 06/27/2023: EF 35%, trivial MR, grade 1 diastolic dysfunction TTE 10/26/2023: EF 51%, mild concentric LVH OSH TTE 12/15/2024: EF 50-55%, grade 1 diastolic dysfunction, mild MR/TR, PASP 39mmHg PFT 01/21/2018: FVC 79%, FEV1 0.86 L, 44%, FEV1/FVC 41%. Post broken dilator FVC 79%, FEV1 0.89 L, 45%, FEV1/FVC 42%. Less than significant response to bronchodilator. TLC 143%, RV 203%, ERV 62%, unadjusted DLCO 74% predicted. PFT 01/23/2019: FVC 72%, FEV1 0.78 L, 37%, FEV1/FVC 38%. Postbronchodilator FVC 75%, FEV1 0.93 L, 43%, FEV1/FVC 43%. Less than significant response to bronchodilator. TLC 115%, RV 172%, ERV 51%, unadjusted DLCO 59% predicted. PFT 04/05/2020: FVC 80%; FEV1 0.84 liters, 41%; FEV1/FVC ratio 39%. Post- bronchodilator FVC 79%; FEV1 0.84 liters, 41%; FEV1/FVC ratio 39%. Less than significant response to bronchodilator. TLC 109%,RV 146%, ERV 69%, Unadjusted DLCO 65% predicted. PFT 08/24/2022: FVC 1.82 L, 73%. FEV1 0.66 L, 35%. FEV1/FVC 36%. Postbronchodilator FVC 2.02 L, 81%. FEV1 0.70 L, 37%. FEV1/FVC 35%. Less than significant response to bronchodilator. Of note FVC did improve by 200 mL, but only 11%. TLC 122%, RV 179%, ERV 138%; Unadjusted DLCO 62% predicted. PFT 11/16/2023: FVC 1.79 L, 73%. FEV1 0.65 L, 35%. FEV1/FVC 36%. Postbronchodilator FVC 1.79 L, 72%. FEV1 0.67 L, 36%. FEV1/FVC 37%. Less than significant response to bronchodilator. TLC 131%, RV 207%, ERV 97%. Unadjusted DLCO 60% predicted. 6-minute walk test: Patient walked a total distance of 400 feet requiring 1 L/min supplemental oxygen with activity. Initial desaturation occurred after walking 200 feet. Past Medical History: Diagnosis Date 2021 Asthma ([facility]) Cancer ([facility]) 2023 CHF (congestive heart failure) ([facility]) COPD (chronic obstructive pulmonary disease) ([facility]) Reactive airway disease ([facility]) Past Surgical History: Procedure Laterality Date APPENDECTOMY BREAST SURGERY lumpectomy HYSTERECTOMY JOINT REPLACEMENT left hip parrtial Social History Tobacco Use Smoking status: Former Current packs/day: 0.00 Average packs/day: 0.3 packs/day for 7.0 years (1.8 ttl pk-yrs) Types: Cigarettes Start date: 02/25/1974 Quit date: 02/26/1980 Years since quittin.1 Smokeless tobacco: Never Vaping Use Vaping status: Never Used Substance Use Topics Alcohol use: Not Currently Alcohol/week: 1.7 standard drinks of alcohol Types: 1 Glasses of wine per week Comment: minimal rare use Drug use: Never No family history on file. Current Outpatient Medications Medication Sig Dispense Refill albuterol (PROVENTIL) (2.5 MG/3ML) 0.083% nebulizer solution Take 3 mLs (2.5 mg total) by nebulization every 4 (four) hours as needed for Wheezing or Shortness of breath. 360 mL 3 albuterol sulfate HFA (PROAIR HFA) 108 (90 Base) MCG/ACT inhaler Inhale 2 puffs into the lungs every 6 (six) hours as needed for Wheezing or Shortness of breath. 18 g 3 ALPRAZolam (XANAX) 0.5 MG tablet Take 0.5 tablets (0.25 mg total) by mouth nightly as needed for Sleep or Anxiety. Indications: Feeling Anxious anastrozole (ARIMIDEX) 1 MG tablet Calcium Carbonate-Vitamin D 500-125 MG-UNIT Tab Indications: Vitamin and/or Mineral Deficiency empagliflozin (JARDIANCE) 10 MG tablet Take 1 tablet (10 mg total) by mouth daily. Indications: Congestive Heart Failure ENTRESTO 24-26 MG tablet Take 1 tablet by mouth 2 (two) times daily. Indications: Congestive Heart Failure famotidine (PEPCID) 40 MG tablet Take 1 tablet (40 mg total) by mouth. flecainide (TAMBOCOR) 100 MG tablet Take 1 tablet (100 mg total) by mouth 2 (two) times daily. furosemide (LASIX) 20 MG tablet metoprolol succinate ER 25 MG 24 hr tablet Indications: Cardiac Failure mirtazapine (REMERON) 7.5 MG Tab tablet Take 1 tablet (7.5 mg total) by mouth. multivitamin tablet Take 1 tablet by mouth daily. Indications: Vitamin and/or Mineral Deficiency ondansetron (ZOFRAN-ODT) 4 MG disintegrating tablet OXYGEN 2 L/min by Nasal route as needed. Indications: Shortness of breath palbociclib (IBRANCE) 125 MG capsule Respiratory Therapy Supplies (NEBULIZER/TUBING/MOUTHPIECE) Kit 1 each by Does not apply route every4 (four) hours as needed. 1 kit 0 sertraline 50 MG tablet Take 1 tablet (50 mg total) by mouth daily. Indications: Depression sodium chloride 3 % NEBULIZER solution Take 4 mLs by nebulization as needed for Other. 120 mL 5 spironolactone (ALDACTONE) 25 MG tablet umeclidinium-vilanterol (ANORO ELLIPTA) 62.5-25 MCG/ACT inhaler USE 1 INHALATION DAILY 360 each 3 No current facility-administered medications for this visit. Review of patient's allergies indicates: Allergen Reactions Levofloxacin Hallucinations Sathish's Pain Patient reported during admission 09/2024 after x2 doses of LQ Ipratropium Unknown Immunization History Administered Date(s) Administered PFIZER COVID-19 (ORIGINAL FORMULATION, PURPLE CAP) mRNA, LNP-S, PF, 30 MCG/0.3 ML DOSE 10/26/2020, 11/19/2020 Review of Systems Constitutional: Positive for malaise/fatigue. Negative for chills, fever and weight loss. HENT: Negative for sinus pain and sore throat. Eyes: Negative for photophobia. Respiratory: Positive for cough, sputum production and wheezing. Negative for hemoptysis, shortnessof breath and stridor. Cardiovascular: Negative for chest pain, palpitations, orthopnea, leg swelling and PND. Gastrointestinal: Negative for abdominal pain, nausea and vomiting. Musculoskeletal: Positive for back pain. Negative for joint pain and myalgias. Skin: Negative for rash. Neurological: Negative for dizziness, focal weakness and headaches. Endo/Heme/Allergies: Positive for environmental allergies. Psychiatric/Behavioral: Negative for depression and suicidal ideas. Physical Exam There were no vitals filed for this visit. Physical Exam: General: wf, pleasant, in NAD Neuro: Alert, appropriate Psych: Affect normal Head: NC, AT EENT: No Sinus tenderness to palpation, mallampati 2 Neck: Supple Lymph: No appreciable cervical lymphadenopathy; enlarged left axillary lymph node Respiratory: non-labored, prolonged expiratory phase, +faint rhonchi/wheezes; no crackles Cardiovascular: s1,s2, rrr, no audible murmur GI: non-distended, bs+ Musc: right wrist ROM wnl Ext: no edema, no clubbing Skin: No visible rashes, No visible tattoos Assessment 1. Chronic hypoxic/hypercarbic respiratory failure 2. Asthma -diagnosed circa age 51 --chronic bronchitis; no elevated type 2 biomarkers 3. COPD +Bronchiectasis -suspect NTM, PSAR colonization contributory -Chronic Bronchitis by history -A1AT MS 4. Metastatic Breast cancer -T1cN1a, stage IIa invasive ductal carcinoma of the left breast --s/p lumpectomy and sentinel lymph node biopsy 01/30/2024; 1 node +metastatic carcinoma ---now with mets to the bone 5. 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 Hx of tobacco abuse 7. Pseudomonas aeruginosa colonization of the lungs 8. Hx of latent TB -s/p treatment 9. CHF -hx of SHF (EF 35%) and Diastolic dysfunction Plan 1. Supplemental O2 as needed to maintain SpO2 >88% -previously 1LPM exertion based on 11/16/2023 6MWT -presently 2LPM rest, 4LPM exertion following most recent hospitalization --would benefit from POC, has arthritis and instability issues 2. NIV qhs and prn naps -continues to need, use, and benefit from use -[employer] is DME 3. Inhalers/nebs: ---Formoterol bid, Yupelri daily [employer] -previously Anoro I puff daily -Previously on Advair 250/50 i puff bid -Previously discussed withholding ICS component with Dr. Higgins at [facility] ----(Lev)albuterol rescue or neb q6 prn sob/wheezing -to use routinely when congested -arrhythmia on albuterol 4. OK to hold Tezspire -discussed risks, benefits, alternatives -asthma, severe persistent by history; no significantly elevated biomarkers -issues with airway hyperresponsiveness and mucous plugging; data from [facility] trial supportive of benefit with use of tezepelumab -instructed on at home self administration 5. 6MWT 6. Sputum studies: --culture including afb sputum with any exacerbation 7. Continue following closely with oncology 8. Discussed need to hold Vest at present given spine fracture -failed acapella 9. Previously discussed colonization with Pseudomonas -predisposed to recurring bronchitis -previously on teresa neb x 1 month -previously noted doing best with levaquin --suboptimal candidate for azithromycin suppression given NTM 10. Previously followed with ID at [facility] -defers return at present; prior MD left; never confirmed MAC given lack of multiple + samples -hx of latent TB, Pseudomonas colonization, MAC+ sputum 11. 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 Tobacco use disorder History of Pseudomonas pneumonia Personal history of pneumonia (recurrent) Chronic respiratory failure with hypoxia ([facility]) Chronic respiratory failure Pulmonary Mycobacterium avium complex (MAC) infection ([facility]) Pulmonary diseases due to other mycobacteria documented in this encounter Additional Health Concerns Assessment Noted Time PHQ-9 Depression Total Score: 0 12/13/19 22 11:54 AM CDT documented as of this encounter Care Teams Fire Protection Equipment Technician Relationship Specialty Start Date End Date Pawan Echevarria MD [facility] [facility] [address] [place] [address] PCP - General FAMILY PRACTICE 04/17/23 documented as of this encounter
--- OUTSIDE RECORDS SUMMARY | 2025-04-10 11:43 | XMS_ITS | Data Portability ---
Author Organization [facility], Telehealth (patients home) Address [address] [place] [address] Assessment Encounter Date Assessment Date Assessment LastModified by Organization Details LastModified Time 08/28/2023 08/28/2023 Patient evaluated for depressive and anxiety disorder. History and exam indicate MDD/ RD. I recommend restarting zoloft 25mg daily. Discussed goals of treatment and effectiveness of current treatment. Discussed follow up and orders indicated below. FAce to face 90 minutes [email or web address] Not available 08/28/2023 22:09:45 09/03/2024 09/03/2024 Met with Nora today for follow up on her mod MDD and RD PHQ9=10 GAD7= 13 mod [email or web address] Not available 09/03/2024 20:31:20 10/01/2024 10/01/2024 Met with Nora oden to follow-up on Zoloft PHQ-[address]-7 15 severe [id number] Not available 10/01/2024 13:30:17 Plan of Treatment Reminders Order Date Submit Date Provider Last Modified By Organization Details Last Modified Time Details Appointments None recorded . Lab None recorded . Referral None recorded . Procedures None recorded . Surgeries None recorded . Imaging None recorded . Medication Orders Zoloft 50 mg tablet 025 10/01/19 25 [facility] #[id number], [address] [place], [id number], 13:29:57 Zoloft 50 mg tablet 024 09/03/20 24 [facility] #06608, [address] [facility], [place], [id number], 4 15:01:16 Zoloft 50 mg tablet 023 09/03/20 24 [facility] #[id number], [address], [place], [place], [id number], 4 14:31:19 Zoloft 25 mg tablet 023 08/28/20 23 [email or web address] [facility] #29016, [address], [place], [place], [id number], 4 14:30:55 Patient TargetsNo targets recorded. Patient Instructions Encounter Date Encounter Id Patient Instructions Last Modified By Organization Details Last Modified Time 08/28/2023 [id number] recommend returning to therapy May benefit from grief support groups. rtc 2 weeks [email or web address] Not available 08/28/2023 16:21:39 Reason for Referral None Reported. Problems Name Problem SNOMED Code Status Onset Date Resolution Date Notes Provider Name and Address Organization Details Recorded Time Generalized anxiety disorder 88255024 Active 2022 Selam Neumann CNM, [facility] [address], [place], [address], [facility] 3 16:13:02 Depressive disorder 33560255 [facility] 14:08:50 Bronchiectasi s 55112256 Active 2022 Mark orona, [facility] 3 14:15:47 Moderate recurrent major depression 86965143 Active 2022 Selam Neumann CNM, [facility] [address], [place], [address], [facility] 3 16:12:57 Anxiety 13017687 Active 2022 Selam Neumann CNM, [facility] [address], [place], [address], [facility] 3 13:22:24 Mild recurrent major depression 42298960 Active 2022 Selam Neumann CNM, [facility] [address], [place], [address], [facility] 3 13:22:45 Increased blood pressure 32442679 Active 2024 Selam Neumann CNM, [facility] [address], [place], [address], [facility] 5 13:28:28 Problem Notes None recorded. Procedures Surgical History Date Name Laterality Status Provider Name and Address Organization Details Recorded Time 08/21/20 Partial Hysterectomy completed [facility] 08/28/2023 14:18:29 biopsy of breast completed [facility] 09/03/2024 14:31:54 partial hip replacement by prosthesis completed [facility] 08/28/2023 14:18:05 Appendectomy [facility] 14:18:46 Imaging Results None recorded. [...] Not Available Not Available Vitals Date Recorded Heart rate Systolic And Diastolic Provider Name and Address Organization Details Last Updated DateTime 10/01/2024 80 /min 158/78 mm[Hg] Selam Neumann CNM, [facility]- [address], [place], [address], [facility] 10/01/2024 13:07:36 Date Recorded Body height Body mass index (BMI) Body weight Heart rate Systolic And Diastolic Provider Name and Address Organization Details Last Updated DateTime 10/01/2024 162.56 cm 22.7 kg/m2 74757.19 g 92 /min 177/91 mm[Hg] Maddie [facility] 10/01/2024 12:15:14 Date Recorded Body height Body mass index (BMI) Body weight Heart rate Systolic And Diastolic Provider Name and Address Organization Details Last Updated DateTime 08/28/2023 162.56 cm 22.6 kg/m2 15163.04 g 84 /min 124/64 mm[Hg] Mark Douglas [facility] 08/28/2023 14:11:31 Date Recorded Body height Body mass index (BMI) Body weight Heart rate Systolic And Diastolic Provider Name and Address Organization Details Last Updated DateTime 09/03/2024 162.56 cm 23 kg/m2 91571.38 g 49 /min 121/70 mm[Hg] Maddie Gonzalez [facility] 09/03/2024 14:30:09 Date Recorded Body height Body mass index (BMI) Body weight Heart rate Systolic And Diastolic Provider Name and Address Organization Details Last Updated DateTime 09/11/2023 162.56 cm 22.5 kg/m2 34422.6 g 73 /min 151/80 mm[Hg] Selam Neumann CNM, [facility]- [address], [place], [address] 13:11:52 Social History Question Answer Notes LastModified by Organizat ion Details LastModified Time Tobacco Smoking Status Former Smoker Mark Douglas [facility] 08/28/2023 14:22:30 What Is Your Level Of Caffeine Consumption? Occasional Information not available 08/28/2023 Are There Any Guns Present In Your Home? No Information not available 08/28/2023 Do You Feel Safe In Your Home? Yes Information not available 08/28/2023 Sex: Unknown Functional Status Question Answer Note LastModified by Organizat ion Details LastModified Time Do you use any illicit or recreational drugs? No Information not available 08/28/2023 What is your level of alcohol consumption? None Information not available 08/28/2023 What is your exercise level? Occasional Information not available 08/28/2023 Mental Status Question Answer Note LastModified by Organization D etails LastModified Time Do you feel stressed (tense, restless, nervous, or anxious, or unable to sleep at night)? [email or web address] Information not available 08/28/2023 Family History Relationship Description Onset Age of [...] Code Diagnosis Note 1323 Selam Neumann CNM, PMHNP- Main Office [address] [place] [address] 08/28/2023 14:01:40 08/28/2023 16:04:28 Moderate recurrent major depression 64543316 F33.1 restart zoloft 25mg daily, encouraged to take at bedtime. discussed can cause some gi disturbanc e but usually does not last longer than a few weeks Generalize d anxiety disorder 60857948 F41.1 start zoloftcont inue xanax as needed- prescribed by Dr Echevarria 1461 Selam Neumann CNM, [facility] Main Office [address] [facility] [place] [address] 09/11/2023 12:02:44 09/11/2023 13:01:59 Anxiety 14879891 F41.9 continue Xanax as needed, as prescribed by pcp Mild recur rent major depression 17100134 F33.0 increase zoloft to 50mg dailyencou raged getting into grief counseling or therapy at [facility] e counseling rtc 3 weeks 4794 Sleam Neumann CNM, [facility] Main Office [address] [facility] [place] [address] 09/03/2024 14:24:18 09/05/2024 13:09:29 Anxiety 45248877 F41.9 continue Xanax as needed, as prescribed by pcp Moderate r ecurrent major depression 15431679 F33.1 increase zoloft to 50mg daily, encouraged to take at bedtime. discussed can cause some gi disturbanc e but usually does not last longer than a few weeksrtc 4 weeksencou rage therapy weekly- starting back to therapy with FRANCISCO 5098 Selam Neumann CNM, [facility] Main Office [address] [facility] [place] [address] 10/01/2024 12:12:19 10/01/2024 15:35:02 Moderate recurrent major depression 32817429 F33.1 continue zoloft 50mg daily,rtc 3 monthsenco urage therapy weekly- starting with new therapist next week Anxiety 73909043 F41.9 continue Xanax as needed, as prescribed by pcp Increased blood pressure 86050999 R03.0 bp 177/91 on arrival to office. retake 158/78. Seeing Dr Loja cardiology today at 1pm Health Concerns Section Related Observation LastModified by Organization Santosh damian LastModified Time None Recorded Concern Status LastModified by Organization Details LastModified Time None Recorded Advance Directives Directive None Recorded Payers Insurance Date Sequence Insurance Name Policy Number Policy Huerat Covered Member ID Huerta Member ID Guarantor Name 03/29/2025 1 [place] Nora Tejeda [id number] Nora Tejeda 10/01/2024 2 FOR LIFE ( - MEDICARE SUPPLEMENT) Nora Tejeda 10/01/2024 2 FOR LIFE () Nora Tejeda [id number] Nora Tejeda 10/01/2024 2 FOR LIFE () Nora Tejeda [id number] Nora Tejeda Notes Date Note Type Note [...] anxiety sisterAngela states her mood to be good. Denies any feelings of worthlessness. does admit [...] [employer] is good. Selam Neumann CNM, PMHNP- [address], [place], [address], [facility] 08/28/2023 22:20:29 09/11/2023 text/html Met with Nora this afternoon. Nora is accompanied by her daughter Payal. doing well with zoloft, tolerated well.Nora states her mood to be good. Aed sammy endorses feeling of worthlessness, and guilt. some [...] [employer] is good. Selam Neumann CNM, [facility] [address], [place], [address], [facility] 09/11/2023 [...] hope, they are all really good to me. Appetite is bad, but still eating 3 meals a day. Denies isolating self. Went to [facility] on sunday. Sleep- No problems falling or staying asleep. Takes Xanax prior to bedtime. Always wakes early in am. Denies any SI or Hi. Denies any AH or VH. Getting back into therapy with FRANCISCO. Selam Neumann CNM, [facility]- [address], [place], [address], [facility] 09/03/2024 [...] and will discuss that further with her enterprise application architect today. Nora denies any SI or HI. Denies any auditory hallucinations or visual hallucinations. Starting with a new therapist next week Roxana Cleveland. Selam Neumann, MORIS, PMHNP-BC [address], [place], [address], [facility] - [facility] 10/01/2024 13:30:53 OBGyn Episode No OBEpisode recorded.
--- OUTSIDE RECORDS SUMMARY | 2025-04-10 11:43 | XMS_ITS | Encounter Summary ---
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 [address] [place] [address], [place] [address] PCP - General Family Medicine 06/06/23 documented as of this encounter
--- OUTSIDE RECORDS SUMMARY | 2025-04-10 11:43 | XMS_ITS | Encounter Summary ---
Author Organization [facility] Address [facility] [place] [address] Care Team Providers Care Bacteriologist Medical Name Role Phone Edilberto Crisostomo MD Primary Care Provider [phone] Gavin Gross MD Primary Care Provider [phone] Pawan Echevarria MD Primary Care Provider [phone] Encounter Details Date Type Department Care Team (Late st Contact Info) Description 12/03/2020 [facility] Message Enc [facility] Medical Group Multispecialty Care - [address], [address] [place] [address] Vik, [facility] Provider Provider Social History Tobacco [...] Sex Assigned at Female 10/03/2024 2:27 PM PHOTOGRAPHER Legal Sex Female 4:16 PM CDT Gender Identity Not on file Sexual Orientation Not on file documented as of this encounter Plan of Treatment Upcoming Encounters Date Type Department Care Team (Late st Contact Info) Description 10/08/2025 3:00 PM PHOTOGRAPHER Office Visit [facility] Medical Group Multispecialty Care - [facility] [address] [place] [address] Abdon Flynn MD [address] [facility] [address] [place] [address] documented as of this encounter Visit Diagnoses Not on filedocumented in this encounter Additional Health Concerns Infection Onset Date Last Indicated Resolved Time COVID-19 Rule Out 10/03/2024 10/03/2024 10/03/2024 5:30 PM PHOTOGRAPHER COVID-19 Rule Out 10/04/2024 10/04/2024 10/04/2024 3:19 AM PHOTOGRAPHER Influenza - Seasonal 10/04/2024 10/04/2024 025 12:32 AM PHOTOGRAPHER documented as of this encounter Care Teams Bacteriologist Medical Relationship Specialty Start Date End Date Edilberto Crisostomo MD [address] [place] [address] PCP - General FAMILY PRACTICE 12/10/17 07/12/22 Gavin Gross MD [address] [facility] [address] [place] [address] PCP - General FAMILY PRACTICE 07/13/22 04/16/23 Pawan Echevarria MD [address] [facility] [address] [place] [address] PCP - General FAMILY PRACTICE 04/17/23 documented as of this encounter
[2025-04-10 12:11] LABS: Add Urine Microscopic? YES; Appearance Urine Cloudy (Clear); Leukocyte Esterase Ur 3+ LEU/UL (Negative); Nitrate Urine Positive (Negative); Non Pathogenic Casts 0-2; Specific Grav Ur 1.017 (1.001-1.035)
== END 2025-04-10 11:40 | disposition home or self-care (01) ==
PROVIDERS: PCP Family Medicine; Visit Provider Family Medicine
DX: R30.0 Dysuria (principal)
CPT/HCPCS: 81001; 87086

== ENCOUNTER 2025-05-06 15:00 | Outpatient (RCR) | payer MEDICARE, OTHER, SELFPAY | END 2025-06-24 13:13 | disposition home or self-care (01) | LOC: ANHCPREHAB 15:00 | PROVIDERS: PCP Family Medicine; Visit Provider Student in an Organized Health Care Education/Training Program | DX: J96.10 Chronic respiratory failure, unspecified whether with hypoxia or hypercapnia (principal) | CPT/HCPCS: 94625; G0239 ==

== ENCOUNTER 2025-05-11 15:27 | Outpatient (CLI) | payer MEDICARE, OTHER, SELFPAY ==
--- OUTSIDE RECORDS SUMMARY | 2025-05-11 14:00 | XMS_ITS | Encounter Summary ---
Author Organization [facility] Healthcare Address [address] [place] [address] Care Team Providers Care Bed Worker Name Role Phone Pawan Echevarria MD Primary Care Provider [phone] Reason for Visit * Cardiology (Routine) - Closed Specialty Diagnoses / Procedures Referred By Una ariza Referred To Contact Diagnoses Chronic right-sided congestive heart failure (HCC) Procedures Transthoracic Echo (TTE) Complete W Doppler/CF Heaven Garcia NP [address] [address] Phone: tel: fax: [facility] Medical [facility] Cardiology [address] [place] [address] Phone: tel: fax: Referral ID Status Reason Start Date Expiration Date Visits Re quested Visits Authorized [id number] Closed 05/07/2025 06/06/2026 1 1 Encounter Details Date Type Department Care Team (Latest Contact Info) Description 05/11/2025 2:00 PM CDT Ancillary Procedure 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 Gender Identity Female 02/01/2022 8:55 AM CDT Sexual Orientation Straight 02/01/2022 8: 55 AM CDT documented as of this encounter Plan of Treatment Pending Results Name Type Priority Associated Diagnoses Date/Time Transthoracic Echo (TTE) Complete W Doppler/CF Echocardiography Routine Chronic right-sided congestive heart failure (HCC) 05/11/2025 3:08 PM CDT documented as of this encounter Visit Diagnoses Diagnosis Chronic right-sided congestive heart failure (HCC) Congestive heart failure, unspecified documented in this encounter Care Teams Bed Worker Relationship Specialty Start Date End Date Pawan Echevarria MD [address] [facility] [address] [place] [address] PCP - General Family Medicine 06/06/23 documented as of this encounter
--- OUTSIDE RECORDS SUMMARY | 2025-05-11 15:37 | XMS_ITS | Encounter Summary ---
Author Organization [facility] Address [address] [place] [address] Care Team Providers Care Firmware Engineer Name Role Phone Pawan Echevarria MD Primary Care Provider [phone] Encounter Details Date Type Department Care Team (Latest Contact Info) Description 05/04/2025 Scan HEALTH INFO SRVCS Scanned, Doc Med [...] and Family Not on file 10/04/2024 Attends [employer] Not on file 10/04 Active Member [...] Recorded Patient Health Questionnaire-2 Score 2 12/05/2022 [facility] - [...] time in the past [address] [facility], were you homeless or living in a skilled nursing (including now)? 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 2:27 PM MANAGER OF CASE MANAGEMENT Legal Sex Female 4:16 PM CDT Gender [...] st Contact Info) Description 10/08/2025 3:00 PM MANAGER OF CASE MANAGEMENT Office Visit [facility] Medical Group Multispecialty Care - [facility] [address] [place] [address] Abdon Flynn MD [address] [facility] [address] [place] [address] documented as of this encounter Visit Diagnoses Not on filedocumented in this encounter Additional Health Concerns Infection Onset Date Last Indicated Resolved Time Tuberculosis Rule-Out 04/27/2025 04/27/2025 Assessment Noted Time PHQ-9 Depression Total Score: 0 12/13/19 22 11:54 AM CDT documented as of this encounter Care Teams Firmware Engineer Relationship Specialty Start Date End Date Pawan Echevarria MD [facility] [address] [place] [address] PCP - General FAMILY PRACTICE 04/17/23 documented as of this encounter
--- OUTSIDE RECORDS SUMMARY | 2025-05-11 15:37 | XMS_ITS | Clinical Summary ---
Author Organization [facility] Address [facility] [place] [address] Care Team Providers Care Seed Potato Arranger Name Role Phone Pawan Echevarria MD Primary Care Provider [phone] Allergies Active Allergy Reactions Criticality Noted Date Comments Ipratropium Unknown 07/04/2018 Levofloxacin Hallucinations Medium 10/06/2024 [place]'s Pain Patient reported during admission 09/2024 after x2 doses of LQ Medications multivitamin tabletIndications :Vitamin and/or Mineral Deficiency Take 1 tablet by mouth daily. Indications: Vitamin and/or Mineral Deficiency Active Calcium Carbonate-Vitamin D 500-125 MG-UNIT TabIndications:Vi tamin and/or Mineral Deficiency Indications: Vitamin and/or Mineral Deficiency Active metoprolol succinate ER 25 MG 24 hr tabletIndications :Heart Failure Indications: Cardiac Failure 020 Active sertraline 50 MG tabletIndications :Depression Take 1 tablet (50 mg total) by mouth daily. Indications: Depression 021 Active Respiratory Therapy Supplies (NEBULIZER/TUBING /MOUTHPIECE) KitIndications:Br onchiectasis without complication (CMS/HCC [facility]) 1 each by Does not apply route every 4 (four) hours as needed. 1 kit 023 Active empagliflozin (JARDIANCE) 10 MG tabletIndications :Congestive Heart Failure Take 1 tablet (10 mg total) by mouth daily. Indications: Congestive Heart Failure 023 Active ENTRESTO 24-26 MG tabletIndications :Congestive Heart Failure Take 1 tablet by mouth 2 (two) times daily. Indications: Congestive Heart Failure 023 Active umeclidinium-robert nterol (ANORO ELLIPTA) 62.5-25 MCG/ACT inhalerIndication s:COPD exacerbation, uncomplicated USE 1 INHALATION DAILY 360 each 3 024 Active albuterol sulfate HFA (PROAIR HFA) 108 (90 Base) MCG/ACT inhalerIndication s:Shortness of breath Inhale 2 puffs into the lungs every 6 (six) hours as needed for Wheezing or Shortness of breath. 18 g 3 024 Active ALPRAZolam (XANAX) 0.5 MG tabletIndications :Anxiety Take 0.5 tablets (0.25 mg total) by mouth nightly as needed for Sleep or Anxiety. Indications: Feeling Anxious Active OXYGENIndications :Shortness of breath 2 L/min by Nasal route as needed. Indications: Shortness of breath 025 Active flecainide (TAMBOCOR) 100 MG tablet Take 1 tablet (100 mg total) by mouth 2 (two) times daily. 025 2025 Active furosemide (LASIX) 20 MG tablet 025 Active spironolactone (ALDACTONE) 25 MG tablet Active palbociclib (IBRANCE) 125 MG capsule 025 Active anastrozole (ARIMIDEX) 1 MG tablet 025 Active mirtazapine (REMERON) 7.5 MG Tab tablet Take 1 tablet (7.5 mg total) by mouth. 025 Active famotidine (PEPCID) 40 MG tablet Take 1 tablet (40 mg total) by mouth. 025 Active ondansetron (ZOFRAN-ODT) 4 MG disintegrating tablet 025 Active albuterol (PROVENTIL) (2.5 MG/3ML) 0.083% nebulizer solutionIndicatio ns:Bronchiectasis without complication (CMS/HCC HHS/HCC) USE 1 VIAL VIA NEBULIZER EVERY 4 HOURS NEEDED FOR WHEEZING OR SHORTNESS OF BREATH 75 mL 2 025 Active sodium chloride 3 % NEBULIZER solutionIndicatio ns:Mixed simple and mucopurulent chronic bronchitis ([facility]) USE 1 VIAL IN NEBULIZER NEEDED 120 mL 5 025 Active azithromycin (ZITHROMAX) 500 mg tabletIndications :Bronchiectasis without complication ([facility]) Take 1 tablet (500 mg total) by mouth 3 (three) times a week for 30 doses. Every Sunday, Sunday, and Sunday 30 tablet 025 2024 Active tezepelumab-ekko (TEZSPIRE) 210 MG/1.91ML Solution Auto-injector injectionIndicati ons:Unspecified asthma, uncomplicated ([facility]) Inject 1.91 mLs (210 mg total) into the skin every 28 days. 1.91 mL 11 025 Active albuterol (PROVENTIL) (2.5 MG/3ML) 0.083% nebulizer solutionIndicatio ns:Shortness of breath Take 3 mLs (2.5 mg total) by nebulization every 4 (four) hours as needed for Wheezing or Shortness of breath. 360 mL 3 023 2024 Discontinued sodium chloride 3 % NEBULIZER solutionIndicatio ns:Mixed simple and mucopurulent chronic bronchitis ([facility]) Take 4 mLs by nebulization as needed for Other. 120 mL 5 023 2024 Discontinued predniSONE (DELTASONE) 20 MG tabletIndications :Moderate persistent asthma with exacerbation ([facility]) Take 1 tablet (20 mg total) by mouth daily for 7 days, THEN 0.5 tablets (10 mg total) daily for 7 days. 11 tablet 025 2024 levoFLOXacin (LEVAQUIN) 750 MG tabletIndications :Moderate persistent asthma with exacerbation ([facility]) Take 1 tablet (750 mg total) by mouth daily for 5 days. 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 COPD (chronic obstructive pu lmonary disease) ([facility]) 03/05/2018 History of Pseudomonas pneumonia 01/27/2018 Pleural thickening 01/27/2018 Bacterial infection 12/13/2017 Chronic cough 12/10/2017 Asthma exacerbation ([facility]) 12/10/2017 Wheeze 12/10/2017 Resolved Problems Problem Noted Date Diagnosed Date Resolved Date Encounter for preventive health examination 11/07/2017 05/28/2020 Encounters Date Type Department Care Team Description 05/08/2025 Scan [facility] Scanned, Doc [facility] 05/04/2025 Scan [facility] Scanned, Doc Med [facility] 05/01/2025 Scan [facility] INFO [facility] Scanned, Doc Med Group 04/30/2025 1:00 PM CDT Office Visit [facility] Multispecialty Care - [facility] [address] [facility] [place] [phone] Abdon Flynn MD Follow Up 04/30/2025 Scan [facility] INFO SRVCS Scanned, Doc Med Group 04/30/2025 Telephone [facility] [address] [address] Abdon Flynn MD Orders 04/30/2025 Travel 04/28/2025 Telephone [facility] - [address] [address] Abdon Flynn MD Medication 04/25/2025 9:39 AM CDT - 04/25/2025 11:59 PM CDT Hospital Encounter [facility] [place] [address] Abdon Flynn MD Discharge Disposition: Home or Self Care (Routine Discharge) 04/24/2025 Scan [facility] INFO SRVCS Scanned, Doc Med Group 04/24/2025 MyChart Message Enc [address] [place] [phone] Abdon Flynn MD Continued Breathing Issues 04/14/2025 MyChart Message Enc [facility] - [address] [place] [phone] Abdon Flynn MD Chest CT Report 04/09/2025 3:00 PM CDT Office Visit [address] [place] [phone] Abdon Flynn MD Follow Up 04/09/2025 Travel [...] materials from doctor or pharmacy Never 10/24/2024 [facility] Utilities Answer Date Recorded In [...] and Family Not on file 10/04/2024 Attends Gnosticist Services Not on file 10/04 Active Member [...] Recorded Patient Health Questionnaire-2 Score 2 12/05/2022 [facility] [place] of Occupat ional Health - Occupational Stress [...] any time in the past 12 m [facility], were you homeless or living in a nursing home (including now)? 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 2:27 PM CATTLE SORTER Legal Sex Female 4:16 PM CDT Gender Identity Not on file Sexual Orientation Not on file Last Filed Vital Signs Vital Sign Reading Time Taken Comments Blood Pressure 134/59 04/30/2025 12:57 PM CDT Pulse 85 04/30/2025 12:57 PM CDT Temperature 36.6 C (97.9 F) 10/14/2024 1:35 PM CATTLE SORTER Respiratory Rate 16 04/30/2025 12:57 PM CDT Oxygen Saturation 94% 04/30/2025 12:57 PM CDT 4L Inhaled Oxygen Concentration - - Weight 53.5 kg (118 lb) 04/30/2025 12:57 PM CDT Height 162.6 cm (5' 4) 04/30/2025 12:57 PM CDT Body Mass Index 20.25 04/30/2025 12:57 PM CDT Plan of Treatment Upcoming Encounters Date Type Department Care Team (Late st Contact Info) Description 10/08/2025 3:00 PM CATTLE SORTER Office Visit [facility] Multispecialty Care - [facility] [address] [facility] [place] [address] Abdon Flynn MD [address] [facility] [address] [place] [address] Health Maintenance Due Date Last Done Comments DTaP, Tdap and Td Vaccines ( 1 - Tdap) 02/14/1960 Pneumococcal Vaccine: 50+ Years (1 of 2 - PCV) 02/14/1960 Zoster Vaccines (1 of 2) 1991 Annual Medicare Wellness Visit 2006 Dexa Scan (General) 2006 RSV Immunization or 60+ Years (1 - 1-dose 75+ series) 02/14/2016 COVID-19 Vaccine ( - 2023-2 5 season) 2024 11/19/2020, 10/26/2020 PHQ-2 (Physician [place]) 09/17/2024 10/25/2023 Meningococcal B Vaccine Aged Out No l onger eligible based on patient's age to complete this topic Meningococcal Vaccine Aged Out No emeli jennifer eligible based on patient's age to complete this topic RSV Immunizations Under 20 Months Aged Out No longer eligible b ased on patient's age to complete this topic Procedures Procedure Name Priority Date/Time Associated Diagnosis Comments CULTURE LOWER RESPIRATORY W/GRAM STAIN Routine 04/25/2025 2:00 PM CDT Moderate persistent asthma with exacerbation (HHS/HCC) CULTURE, TB/AFB W/ STAIN Routine 04/25/2025 2:00 PM CDT Moderate persistent asthma with exacerbation (HHS/HCC) from Last 3 Months Results * (ABNORMAL) CULTURE LOWER RESPIRATORY W/GRAM STAIN (04/25/2025 2:00 PM CDT) SPEC DESCRIPTION SPUTUM, EXPECTORATED 04/27/2025 9:40 AM CDT [facility] SPECIAL REQUESTS NO SPECIAL REQUEST 04/27/2025 9:40 AM CDT [facility] GRAM STAIN RESULT MANY WHITE BLOOD CELLS SEEN 04/27/2025 2:45 PM CDT [facility] GRAM STAIN RESULT FEW MIXED BACTERIAL NIKOLE 04/27/2025 2:45 PM CDT [facility] CULTURE RESULT LIGHT GROWTH OF NORMAL NIKOLE PRESENT 04/30/2025 8:00 AM CDT [facility] CULTURE RESULT LIGHT GROWTH OF PSEUDOMONAS AERUGINOSA NOTE: ORGANISM MAY DEVELOP RESISTANCE AFTER 3 TO 4 DAYS OF THERAPY WITH THIRD GENERATION CEPHALOSPORINS. TESTING OF REPEAT ISOLATES MAY BE WARRANTED. (A) 04/30/2025 8:00 AM CDT [facility] SPUTUM SPECIMEN / Unknown 04/25/2025 2:00 PM CDT 04/27/2025 9:41 AM CDT Narrative Organism Antibiotic Method Susceptibility Pseudomonas aeruginosa PIPERACILLIN/TAZOBACTAM SAKSHI (KB ) Sensitive Pseudomonas aeruginosa CEFTAZIDIME SAKSHI (KB) Sensitive Abdon Flynn MD MICROBIOLOGY - GENERAL JAI SKELTON Final Result [facility] [address] [place] [address], from Last 3 Months Additional Health Concerns Infection Onset Date Last Indicated Tuberculosis Rule-Out 04/27/2025 04/27/2025 Insurance [employer] MEDICARE Advance Directives * Full Code (Latest Code Status on File) Date Activated Date Inactivated Comments 10/09/2024 3:14 PM * Full Code Date Activated Date Inactivated Comments 10/04/2024 12:11 AM 10/08/2024 6:04 PM Care Teams Seed Potato Arranger Relationship Specialty Start Date End Date Pawan Echevarria MD [address] [facility] [address] [address] PCP - General FAMILY PRACTICE 04/17/23
--- OUTSIDE RECORDS SUMMARY | 2025-05-11 15:37 | XMS_ITS | Encounter Summary ---
Author Organization [facility] Address [address] [place] [address] Phone Care Team Providers Care Pressure Testing Technician Name Role Phone Geeta Crisostomo MD Primary Care Provider [phone] Gavin Gross MD Primary Care Provider [phone] Pawan Echevarria MD Primary Care Provider [phone] Encounter Details Date Type Department Care Team [...] on file Legal Sex Female 3:43 AM CLINICAL QUALITY MANAGER Gender Identity Female 02/01/2022 8:55 AM [...] on filedocumented in this encounter Care Teams Pressure Testing Technician Relationship Specialty Start Date End Date Geeta Crisostomo MD [address] [place] [address] PCP - General Family Medicine 03/08/18 03/28/22 Gavin Gross MD [address] [place] [address] PCP - General Family Medicine 03/29/22 06/05/23 Pawan Echevarria MD [address] [place] [address] [place] [address] PCP - General Family Medicine 06/06/23 documented as of this encounter
--- OUTSIDE RECORDS SUMMARY | 2025-05-11 15:37 | XMS_ITS | Encounter Summary ---
Author Organization [facility] Address [address] [place] [address] Care Team Providers Care Admin Assistant Name Role Phone Pawan Echevarria MD Primary Care Provider [phone] Encounter Details Date Type Department Care Team (Latest Contact Info) Description 05/01/2025 Scan HEALTH INFO SRVCS Scanned, Doc Med [...] and Family Not on file 10/04/2024 Attends [employer] Services Not on file 10/04 Active Member [...] Recorded Patient Health Questionnaire-2 Score 2 12/05/2022 [facility] Occupat ional Health - [...] any time in the past 12 m [facility], were you homeless or living in a retirement (including now)? 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 2:27 PM QUALITY PROCESS AUDITOR Legal Sex Female 4:16 PM CDT [...] st Contact Info) Description 10/08/2025 3:00 PM QUALITY PROCESS AUDITOR Office Visit [facility] Multispecialty Care - [facility] [address] [facility] [place] [address] Abdon Flynn MD 3rd [facility] [address] [place] [address] documented as of this encounter Visit Diagnoses Not on filedocumented in this encounter Additional Health Concerns Infection Onset Date Last Indicated Resolved Time Tuberculosis Rule-Out 04/27/2025 04/27/2025 Assessment Noted Time PHQ-9 Depression Total Score: 0 12/13/19 22 11:54 AM CDT documented as of this encounter Care Teams Admin Assistant Relationship Specialty Start Date End Date Pawan Echevarria MD [facility] [address] [place] [address] PCP - General FAMILY PRACTICE 04/17/23 documented as of this encounter
--- OUTSIDE RECORDS SUMMARY | 2025-05-11 15:37 | XMS_ITS | Encounter Summary ---
Author Organization [facility] Address [address] [place] [address] Care Team Providers Care Rx Specialist Name Role Phone Gavin Gross MD Primary Care Provider [phone] Pawan Echevarria MD Primary Care Provider [phone] Encounter Details Date Type Department Care Team (Late Contact Info) Description 03/14/2023 MyChart Message Enc [facility] - [facility] [address] [place], [place] [address] [place] Provider Air Quality Message Social [...] Sex Assigned at Female 10/03/2024 2:27 PM MEDICAL EDUCATION MANAGER Legal Sex Female 4:16 PM CDT Gender Identity Not on file Sexual Orientation Not on file documented as of this encounter Plan of Treatment Upcoming Encounters Date Type Department Care Team (Late Contact Info) Description 10/08/2025 3:00 PM MEDICAL EDUCATION MANAGER Office Visit [facility] Medical Group Multispecialty Care - [facility] [address] [facility] [place] [address] Abdon Flynn MD [address] [facility] [address] [place] [address] documented as of this encounter Visit Diagnoses Not on filedocumented in this encounter Additional Health Concerns Infection Onset Date Last Indicated Resolved Time COVID-19 Rule Out 10/03/2024 10/03/2024 10/03/2024 5:30 PM MEDICAL EDUCATION MANAGER COVID-19 Rule Out 10/04/2024 10/04/2024 10/04/2024 3:19 AM MEDICAL EDUCATION MANAGER Influenza - Seasonal 10/04/2024 10/04/2024 025 12:32 AM MEDICAL EDUCATION MANAGER Tuberculosis Rule-Out 04/27/2025 04/27/2025 Assessment Noted Time PHQ-9 Depression Total Score: 0 12/13/19 22 11:54 AM CDT documented as of this encounter Care Teams Rx Specialist Relationship Specialty Start Date End Date Gavin Gross MD [address] [facility] [address] [place] [address] PCP - General FAMILY PRACTICE 07/13/22 04/16/23 Pawan Echevarria MD [address] [facility] [address] [place] [address] PCP - General FAMILY PRACTICE 04/17/23 documented as of this encounter
--- OUTSIDE RECORDS SUMMARY | 2025-05-11 15:37 | XMS_ITS | Encounter Summary ---
Author Organization [facility] Address [facility] [place] [address] Care Team Providers Care Olive Grader Name Role Phone Pawan Echevarria MD Primary Care Provider [phone] Encounter Details Date Type Department Care Team (Late st Contact Info) Description 11/18/2024 MyChart Message Enc [facility] Medical Group Multispecialty Care - [facility] [address] [facility] [place] [phone] Abdon Flynn MD [address] [place], [place] [address]vd [address] [place] [address] Move Up Appointment Social History Tobacco Use [...] from doctor or pharmacy Never 10/24/2024 [facility] Utilities Answer Date Recorded In [...] Recorded Patient Health Questionnaire-2 Score 2 12/05/2022 [facility] [place] of Occupat ional Health - Occupational Stress [...] any time in the past 12 m [facility], were you homeless or living in a senior living (including now)? 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 2:27 PM SMALL ANIMAL VETERINARIAN Legal Sex Female 4:16 PM CDT Gender [...] Assessment Author Status No 10/04/2024 5:00 PM SMALL ANIMAL VETERINARIAN Nighat Prado RN Active documented as of this encounter Mental Status * Because of a physical, mental, or emotional condition, do you have serious difficulty concentrating, remembering, or making decisions? Answer Entry Date Author Status No 10/04/2024 5:00 PM SMALL ANIMAL VETERINARIAN Nighat Prado RN Active documented in this encounter Plan of Treatment Upcoming Encounters Date Type Department Care Team (Late st Contact Info) Description 10/08/2025 3:00 PM SMALL ANIMAL VETERINARIAN Office Visit [facility] Medical Group Multispecialty Care - [facility] [address] [facility] [place] [address] Abdon Flynn MD [address] [place] [address] [address] [place] [address] documented as of this encounter Visit Diagnoses Not on filedocumented in this encounter Additional Health Concerns Infection Onset Date Last Indicated Resolved Time Tuberculosis Rule-Out 04/27/2025 04/27/2025 Assessment Noted Time PHQ-9 Depression Total Score: 0 12/13/19 22 11:54 AM CDT documented as of this encounter Care Teams Olive Grader Relationship Specialty Start Date End Date Pawan Echevarria MD [address] [facility] [address] [place] [address] PCP - General FAMILY PRACTICE 04/17/23 documented as of this encounter
--- OUTSIDE RECORDS SUMMARY | 2025-05-11 15:37 | XMS_ITS | Clinical Summary ---
Author Organization [facility] Virtual Care Address [address] [place] [address] Phone Care Team Providers Care Vp Outcomes Name Role Phone Pawan Echevarria MD Primary Care Provider [phone] Allergies No known active allergies Medications calcium carbonate-vitamin D3 500 mg(1,250mg) -400 unit chewable tablet Take 1 tablet by mouth daily Active umeclidinium-vilan teroL (Anoro Ellipta) 62.5-25 mcg/actuation blister with device Inhale 1 puff daily 01/12/20 21 Active albuterol HFA (PROVENTIL HFA,VENTOLIN HFA,PROAIR HFA) 90 mcg/actuation inhaler 03/06/20 22 Active mucus clearing device device 1 Device by Not Applicable route every 4 (four) hours as needed (wheezing) 1 each 10/04/19 23 Active ALPRAZolam (XANAX) 0.25 mg tablet Take 1 tablet (0.25 mg total) by mouth nightly as needed for anxiety 30 tablet 12/30/19 23 Active multivit-min/oziel us fumarate (MULTI VITAMIN ORAL) Take by mouth Ac tive sacubitriL-valsart an (ENTRESTO) 24-26 mg tabletIndications: chronic heart failure Take 1 tablet by mouth 2 (two) times a day 180 tablet 3 09/03/20 24 Active sertraline (ZOLOFT) 50 mg tablet Take 1 tablet (50 mg total) by mouth daily Active empagliflozin (JARDIANCE) 10 mg tablet Take 1 tablet (10 mg total) by mouth daily 90 tablet 6 10/01/19 25 Active flecainide (TAMBOCOR) 100 mg tablet Take 1 tablet (100 mg total) by mouth 2 (two) times a day 60 tablet 11 12/02/19 25 026 Active anastrozole (ARIMIDEX) 1 mg tablet 12/11/19 25 Active mirtazapine (REMERON) 7.5 mg tablet Take 1 tablet (7.5 mg total) by mouth 10/09/19 25 Active gabapentin (NEURONTIN) 300 mg capsule 12/03/19 25 Active palbociclib (IBRANCE) 125 mg tablet Take 1 tablet (125 mg total) by mouth daily 12/11/19 25 Active famotidine (PEPCID) 40 mg tablet Take 1 tablet (40 mg total) by mouth 10/09/19 25 Active spironolactone (ALDACTONE) 25 mg tabletIndications: Nonischemic cardiomyopathy (HCC) Take 1 tablet (25 mg total) by mouth daily 90 tablet 3 01/13/20 25 Active furosemide (LASIX) 20 mg tabletIndications: Nonischemic cardiomyopathy (HCC) Take 1 tablet (20 mg total) by mouth daily as needed (edema and/or weight gain) 30 tablet 1 01/13/20 25 Active metoprolol XL (TOPROL-XL) 25 mg extended release tabletIndications: Nonischemic cardiomyopathy (HCC) Take 1 tablet (25 mg total) by mouth daily 90 tablet 1 04/15/20 25 026 Active metoprolol XL (TOPROL-XL) 25 mg extended release tabletIndications: Nonischemic cardiomyopathy (HCC) Take 1 tablet (25 mg total) by mouth daily 90 tablet 3 06/23/20 24 025 Discontin ued(Reord er) Active Problems Problem Noted Date Diagnosed Date [...] CMP checked today. - Spoke with her insert molding operator, Dr. Abdon Flynn ([facility] [place]), to discuss the possibility of sparing inhales [...] 81 y.o. 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 lFynn (pulmonology) - I discussed rationale for manegement, culture results, risk of recurrence, possible complications and reasons to return or call for follow-up. RTC in 3 months Assessment & Plan (08/02/2021 3:44 PM EXPRESS MANAGER): 81 y.o. 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 8 COPD (chronic obstructive pulmonary disease) Encounters Date Type Department Care Team Description 05/11/2025 2:00 PM CDT Ancillary Procedure [facility] Medical Group Cardiology [address] [place] [address] Chronic right-sided congestive heart failure (HCC) 05/05/2025 Telephone [facility] [address] [place] [address] Damien Plaza MD from Last 3 Months Immunizations Immunization Administration Dates Next Due Influenza, Unspecified 07/07/2022(Deferr ed: Patient Refused),07/06/2021(Deferred: Patient Refused) Surgical History Surgery Date Site/Laterality Comments PARTIAL HIP ARTHROPLASTY APPENDECTOMY CATARACT EXTRACTION 08/2019 HYSTERECTOMY 2006 JOINT REPLACEMENT Hip Replacement 2005 BREAST SURGERY January 2024 Medical History Medical History Date Comments Cardiac rhythm disturbance Appendix disease Pneumonia Asthma COPD (chronic obstructive pulmonary disease) Ear problems HL (hearing loss) Anxiety Heart disease Tuberculosis COPD (chronic obstructive pulmonary disease) Bronchiectasis Sleep difficulties Cancer (HCC) January 2024 Osteoporosis [...] on file Legal Sex Female 3:43 AM EXPRESS MANAGER Gender Identity Female 02/01/2022 8:55 AM CDT Sexual Orientation Straight 02/01/2022 8: 55 AM CDT Obstetrics History Last Filed Vital Signs Vital Sign Reading Time Taken Comments Blood Pressure 124/58 01/12/2025 2:43 PM CDT Pulse 71 01/12/2025 2:43 PM CDT Temperature 36.9 C (98.5 F) 10/04/2022 11:40 AM EXPRESS MANAGER Respiratory Rate 20 03/18/2024 11:53 AM CDT [...] PCV) 02/14/1960 Zoster Vaccine (1 of 2) 03/15/2011 01/18/2011 Covid-19 Vaccine (3 - Pfizer risk series) 12/17/2020 11/19/2020, 10/26/2020 Depression Screening 10/04/2023 10/04/2022, 03/29/20 Fall Risk Assessment 10/04/2023 10/04/2022, 03/29/20 22 Well Visit 65+ 10/04/2023 10/04/2022 Influenza Vaccine (#1) 2025 Insurance MEDICARE [employer] MEDICARE FOR LIFE MEDICARE FOR LIFE Care Teams Vp Outcomes Relationship Specialty Start Date End Date Pawan Echevarria MD [facility] [facility] [facility] [address] [facility] [place] [address] PCP - General Family Medicine 06/06/23
--- OUTSIDE RECORDS SUMMARY | 2025-05-11 15:37 | XMS_ITS | Encounter Summary ---
Author Organization [facility] Address [facility] [place] [address] Care Team Providers Care Master Electrician Name Role Phone Edilberto Crisostomo MD Primary Care Provider Gavin Gross MD Primary Care Provider [phone] Pawan Echevarria MD Primary Care Provider [phone] Encounter Details Date Type Department Care Team (Late st Contact Info) Description 12/03/2020 HipLogic Message Enc [facility] Medical [facility] Multispecialty Care - [address], [address] [place] [phone] Vik, [facility] Provider Provider Social History Tobacco [...] Sex Assigned at Female 10/03/2024 2:27 PM ROLLER STAKER Legal Sex Female 4:16 PM CDT Gender Identity Not on file Sexual Orientation Not on file documented as of this encounter Plan of Treatment Upcoming Encounters Date Type Department Care Team (Late st Contact Info) Description 10/08/2025 3:00 PM ROLLER STAKER Office Visit [facility] - [facility] [address] [place] [address] Abdon Flynn MD [address] [facility] [address] [place] [address] documented as of this encounter Visit Diagnoses Not on filedocumented in this encounter Additional Health Concerns Infection Onset Date Last Indicated Resolved Time COVID-19 Rule Out 10/03/2024 10/03/2024 10/03/2024 5:30 PM ROLLER STAKER COVID-19 Rule Out 10/04/2024 10/04/2024 10/04/2024 3:19 AM ROLLER STAKER Influenza - Seasonal 10/04/2024 10/04/2024 025 12:32 AM ROLLER STAKER Tuberculosis Rule-Out 04/27/2025 04/27/2025 documented as of this encounter Care Teams Master Electrician Relationship Specialty Start Date End Date Edilberto Crisostomo MD [address] [place] [address] PCP - General FAMILY PRACTICE 12/10/17 07/12/22 Gavin Gross MD [address] [place] [address] PCP - General FAMILY PRACTICE 07/13/22 04/16/23 Pawan Echevarria MD [facility] [facility] [address] [place] [address] PCP - General FAMILY PRACTICE 04/17/23 documented as of this encounter
--- OUTSIDE RECORDS SUMMARY | 2025-05-11 15:37 | XMS_ITS | Clinical Summary ---
Author Organization [facility] Negra Priestolga Address [address] [place] [address] Care Team Providers Care Credit Operations Processor Name Role Phone Pawan Echevarria MD Primary Care Provider [phone] Allergies Active Allergy Reactions Criticality Noted Date [...] 28-day cycle. 21 Tablet 4 5 Active sulfamethoxazole- trimethoprim (BACTRIM DS) 800-160 mg tablet Take 1 Tablet by mouth 2 times daily. Active Active Problems No known active problems Encounters Date Type Department Care Team Description 05/05/2025 External Device Data STL ABSTRACTION Provider, Abstract 04/22/2025 External Device Data STL ABSTRACTION Provider, Abstract 04/14/2025 2:00 PM CDT Office Visit [facility] Oncology and Hematology - [place] [address] Warren Vaughn MD Metastasis to bone (CMS/HCC) (Primary Dx) 04/14/2025 Orders Only [facility] - [place] [address] Warren Vaughn MD 04/13/2025 Orders Only [facility]ematology - [place] [address] [place] [address] Warren Vaughn MD 04/09/2025 Orders Only [facility]cology and Hematology - [place] [address] [place] [address] Warren Vaughn MD 04/01/2025 External Device Data STL ABSTRACTION Provider, Abstract 04/01/2025 External Device Data STL ABSTRACTION Provider, Abstract 04/01/2025 External Device Data STL ABSTRACTION Provider, Abstract 03/31/2025 External Device Data STL ABSTRACTION Provider, Abstract 03/04/2025 External Device Data STL ABSTRACTION Provider, Abstract 03/03/2025 External Device Data STL ABSTRACTION Provider, Abstract 02/25/2025 2:30 PM CDT Office Visit [facility]cology and Hematology - [place] [address] [place] [phone] Warren Vaughn MD Metastasis to bone (CMS/HCC) (Primary Dx) 02/20/2025 Orders Only [facility] Oncology and Hematology - [place] [address] [place] [phone] Warren Vaughn MD 2025 Orders Only [facility] Oncology and Hematology - [place] [address] [place] [address] Warren Vaughn MD from Last 3 Months [...] Sign Reading Time Taken Comments Blood Pressure 128/61 04/14/2025 2:11 PM CDT Pulse 67 04/14/2025 2:11 PM CDT Temperature 37.2 C (98.9 F) 04/14/2025 2:11 PM CDT Respiratory Rate 15 04/14/2025 2:11 PM CDT Oxygen Saturation 90% 04/14/2025 2:11 PM CDT Inhaled Oxygen Concentration - - Weight 53.9 kg (118 lb 12.8 oz) 04/14/2025 2:11 PM CDT Height 162.6 cm (5' 4) 11/29/2023 3:03 PM CDT Body Mass Index 20.39 11/29/2023 3:03 PM CDT Plan of Treatment Upcoming Encounters Date Type Department Care Team (Late st Contact Info) Description 06/23/2025 2:00 PM CDT Office Visit [facility] Oncology and Hematology - [place] [address] [place] [address] [facility] [address] [place] [address] Warren Vaughn MD [address] [facility] [address] [place] [address] Health Maintenance Due Date Last [...] METABOLIC PANEL Routine 04/09/2025 3:[address] CHEST ABDOMEN PELVIS W CONT Routine 04/07/2025 9:36 AM CDT NM BONE SCAN WHOLE BODY Routine 04/07/20 9:13 AM CDT CANCER ANTIGEN 15-3 Routine 02/12/2025 1 2:19 PM CDT COMPREHENSIVE METABOLIC PANEL Routine 02/12/2025 11:27 AM CDT CBC WITH DIFFERENTIAL Routine 02/12/2025 8:03 AM CDT from Last 3 Months Results * COMPREHENSIVE METABOLIC PANEL (04/09/2025 3:35 PM CDT) Only the most recent of2 resultswithin the time period is included. Blood us Warren Vaughn MD CHEMISTRY ORDERABLES Final Resu lt * CT CHEST ABDOMEN PELVIS W CONT (04/07/2025 9:36 AM CDT) Anatomical Region Laterality Modality Chest Computed Tomogra phy us Warren Vaughn MD CT ORDERABLES Final Result * NM BONE SCAN WHOLE BODY (04/07/2025 9:13 AM CDT) Anatomical Region Laterality Modality Nuclear Medicine us Warren Vaughn MD NM ORDERABLES Final Result * CANCER ANTIGEN 15-3 (02/12/2025 12:19 PM CDT) Blood us Warren Vaughn MD CHEMISTRY ORDERABLES Final Resu lt * CBC WITH DIFFERENTIAL (02/12/2025 8:03 AM CDT) Blood us Warren Vaughn MD HEMATOLOGY ORDERABLES Final Res ult from Last 3 Months Insurance MEDICARE PART A AND B [facility] Address: [place] [address] [employer]IP[employer] Express Care Teams Credit Operations Processor Relationship Specialty Start Date End Date Pawan Echevarria MD [address] [place] [address] PCP - General Family Practice 11/29/23
--- OUTSIDE RECORDS SUMMARY | 2025-05-11 15:37 | XMS_ITS | Encounter Summary ---
Author Organization [facility] Address [facility] [place] [address] Care Team Providers Care Marketing Liaison Name Role Phone Pawan Echevarria MD Primary Care Provider [phone] Encounter Details Date Type Department Care Team (Late st Contact Info) Description 10/03/2024 MyChart Message Enc [facility] Medical Group Multispecialty Care - [facility] [address] [facility] [place] [phone] Abdon Flynn MD [address] [place], [place] [address] [address] [place] [address] Fever/Shortness of Breath Social History Tobacco Use [...] and Family Not on file 10/04/2024 Attends Hinduism Services Not on file 10/04 Active Member [...] Recorded Patient Health Questionnaire-2 Score 2 12/05/2022 [facility] of Occupat ional Health - Occupational [...] the past [address] [facility], were you homeless or living in a chcf (including now)? 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 2:27 PM OPERATIONAL TRAINER Legal Sex Female 4:16 PM CDT Gender [...] Status No Risk Indicated 10/03/2024 2:19 PM OPERATIONAL TRAINER Jethro Marin RN Active * Routt Suicide Severity Rating Scale (Screener/Recent Self-Report) Question [...] or making decisions? No 10/04/2024 5:00 PM OPERATIONAL TRAINER Nighat Prado R N Active documented in this encounter Plan of Treatment Upcoming Encounters Date Type Department Care Team (Late st Contact Info) Description 10/08/2025 3:00 PM OPERATIONAL TRAINER Office Visit [facility] Medical [facility] Multispecialty Care - [facility] [address] [facility] [place] [address] Abdon Flynn MD [address] [facility] [address] [place] [address] documented as of this encounter Visit Diagnoses Not on filedocumented in this encounter Additional Health Concerns Infection Onset Date Last Indicated Resolved Time COVID-19 Rule Out 10/03/2024 10/03/2024 10/03/2024 5:30 PM OPERATIONAL TRAINER COVID-19 Rule Out 10/04/2024 10/04/2024 10/04/2024 3:19 AM OPERATIONAL TRAINER Influenza - Seasonal 10/04/2024 10/04/2024 025 12:32 AM OPERATIONAL TRAINER Tuberculosis Rule-Out 04/27/2025 04/27/2025 Assessment Noted Time PHQ-9 Depression Total Score: 0 12/13/19 22 11:54 AM CDT documented as of this encounter Care Teams Marketing Liaison Relationship Specialty Start Date End Date Pawan Echevarria MD [address] [facility] [address] [place] [address] PCP - General FAMILY PRACTICE 04/17/23 documented as of this encounter
--- OUTSIDE RECORDS SUMMARY | 2025-05-11 15:37 | XMS_ITS | Encounter Summary ---
Author Organization [facility] Address [facility] [place] [address] Care Team Providers Care Medical Billing Coordinator Name Role Phone Gavin Gross MD Primary Care Provider [phone] Pawan Echevarria MD Primary Care Provider [phone] Encounter Details Date Type Department Care Team (Late st Contact Info) Description 12/08/2022 MyChart Message Enc [facility] Medical Group Multispecialty Care - [address] [place] [address] Abdon Flynn MD [address] [place] [address] [address] [place] [address] Rx for Nebulizer Social History Tobacco Use [...] Sex Assigned at Female 10/03/2024 2:27 PM GRIND OPERATOR Legal Sex Female 4:16 PM CDT [...] st Contact Info) Description 10/08/2025 3:00 PM GRIND OPERATOR Office Visit [facility] Medical Group Multispecialty Care - [address], [address] [place] [address] Abdon Flynn MD [address] [place] [address] [address] [place] [address] documented as of this encounter Visit Diagnoses Not on filedocumented in this encounter Additional Health Concerns Infection Onset Date Last Indicated Resolved Time COVID-19 Rule Out 10/03/2024 10/03/2024 10/03/2024 5:30 PM GRIND OPERATOR COVID-19 Rule Out 10/04/2024 10/04/2024 10/04/2024 3:19 AM GRIND OPERATOR Influenza - Seasonal 10/04/2024 10/04/2024 025 12:32 AM GRIND OPERATOR Tuberculosis Rule-Out 04/27/2025 04/27/2025 Assessment Noted Time PHQ-9 Depression Total Score: 0 12/13/19 22 11:54 AM CDT documented as of this encounter Care Teams Medical Billing Coordinator Relationship Specialty Start Date End Date Gavin Gross MD [address] [facility] [address] [place] [address] PCP - General FAMILY PRACTICE 07/13/22 04/16/23 Pawan Echevarria MD [address] [facility] [address] [place] [address] PCP - General FAMILY PRACTICE 04/17/23 documented as of this encounter
--- OUTSIDE RECORDS SUMMARY | 2025-05-11 15:37 | XMS_ITS | Encounter Summary ---
Author Organization [facility] Healthcare Address [address] [place] [address] Care Team Providers Care Android Ui Developer Name Role Phone Pawan Echevarria MD Primary Care Provider [phone] Encounter Details Date Type Department Care Team (Late st Contact Info) Description 12/17/2024 Orders Only [facility] Health Information Management [address] [place] [address] Scanning, Provider Social History Tobacco Use Types [...] on file Legal Sex Female 3:43 AM TECHNICAL SUPPORT 1 SOFTWARE ENGINEER Gender Identity Female 02/01/2022 8:55 AM CDT Sexual Orientation Straight 02/01/2022 8: 55 AM CDT documented as of this encounter Plan of Treatment Not on file documented as of this encounter Procedures Procedure Name Priority Date/Time Associated Diagnosis Comments SCAN - RADIOLOGY/IMAGING 12/17/2024 documented in this encounter Results * SCAN - RADIOLOGY/IMAGING (12/17/2024) Anatomical Region Laterality Modality Other us Provider Scanning Final Result documented in this encounter Visit Diagnoses Not on filedocumented in this encounter Care Teams Android Ui Developer Relationship Specialty Start Date End Date Pawan Echevarria MD [facility] [address] [address] PCP - General Family Medicine 06/06/23 documented as of this encounter
--- OUTSIDE RECORDS SUMMARY | 2025-05-11 15:37 | XMS_ITS | Encounter Summary ---
Author Organization [facility] Address [address] [place] [address] Phone Care Team Providers Care Bottom Stainer Name Role Phone Geeta Crisostomo MD Primary Care Provider [phone] Gavin Gross MD Primary Care Provider [phone] Pawan Echevarria MD Primary Care Provider [phone] Encounter Details Date Type Department Care Team [...] on file Legal Sex Female 3:43 AM FINANCIAL COMPLIANCE EXAMINER Gender Identity Female 02/01/2022 8:55 AM CDT [...] on filedocumented in this encounter Care Teams Bottom Stainer Relationship Specialty Start Date End Date Geeta Crisostomo MD [address] [place] [address] PCP - General Family Medicine 03/08/18 03/28/22 Gavin Gross MD [address] [place] [address] PCP - General Family Medicine 03/29/22 06/05/23 Pawan Ecehvarria MD [address] [place] [address] [place] [address] PCP - General Family Medicine 06/06/23 documented as of this encounter
--- OUTSIDE RECORDS SUMMARY | 2025-05-11 15:37 | XMS_ITS | Encounter Summary ---
Author Organization [facility] - [facility] Address [facility] [place] [address] Care Team Providers Care Nurse Sane Name Role Phone Pawan Echevarria MD Primary Care Provider [phone] Encounter Details Date Type Department Care Team (Late st Contact Info) Description 12/31/2024 MyChart Message Enc [facility] Medical Group Multispecialty Care - [facility] [address] [facility] [place] [address] Abdon Flynn MD [address] [place], [place] [address] [address] [place] [address] POC from [employer] - approval required Social [...] In the past 12 months has e [employer], gas, oil, or water [employer] threatened to shut off services in your [...] and Family Not on file 10/04/2024 Attends Synagogue Services Not on file 10/04 Active Member [...] Recorded Patient Health Questionnaire-2 Score 2 12/05/2022 [facility] [place] of Occupat ional Health - Occupational [...] any time in the past 12 m [facility], were you homeless or living in a skilled nursing (including now)? 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 2:27 PM PROOF PRESS OPERATOR Legal Sex Female 4:16 PM CDT [...] st Contact Info) Description 10/08/2025 3:00 PM PROOF PRESS OPERATOR Office Visit [facility] Medical Group Multispecialty Care - [facility] [address] [facility] [place] [address] Abdon Flynn MD [address] [place] [address] [address] [place] [address] documented as of this encounter Visit Diagnoses Not on filedocumented in this encounter Additional Health Concerns Infection Onset Date Last Indicated Resolved Time Tuberculosis Rule-Out 04/27/2025 04/27/2025 Assessment Noted Time PHQ-9 Depression Total Score: 0 12/13/19 22 11:54 AM CDT documented as of this encounter Care Teams Nurse Sane Relationship Specialty Start Date End Date Pawan Echevarria MD [address] [facility] [address] [place] [address] PCP - General FAMILY PRACTICE 04/17/23 documented as of this encounter
--- OUTSIDE RECORDS SUMMARY | 2025-05-11 15:37 | XMS_ITS | Encounter Summary ---
Author Organization [facility] Address [facility] [place] [address] Care Team Providers Care Database Engineer Name Role Phone Pawan Echevarria MD Primary Care Provider [phone] Reason for Visit * Reason Onset Date Comments Orders 04/30/2025 Encounter Details Date Type Department Care Team (Late st Contact Info) Description 04/30/2025 Telephone [facility] Medical Group [facility] [address] [address] Abdon Flynn MD [address] [place] [phone] Orders Social History Tobacco Use Types Packs/Day Years [...] Never 10/24/2024 [facility] Utilities Answer Date Recorded In the past [...] and Family Not on file 10/04/2024 Attends [employer] Services Not on file 10/04 Active [...] Recorded Patient Health Questionnaire-2 Score 2 12/05/2022 [facility] of Occupat ional Health - Occupational Stress [...] time in the past 12 m [facility], were you homeless or living in a correction (including now)? 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 2:27 PM TOUR SALES REPRESENTATIVE Legal Sex Female 4:16 PM CDT Gender [...] Author Status No 10/04/2024 5:00 PM Nighat Caputo, RN Active documented as of this encounter Mental Status * Because of a physical, mental, or emotional condition, do you have serious difficulty concentrating, remembering, or making decisions? Answer Entry Date Author Status No 10/04/2024 5:00 PM Nighat Caputo RN Active documented in this encounter Progress Notes * Harpreet Palmer MA - 05/11/2025 8:59 AM CDT HERIBERTO TEJEDA (Munoz: [id number]) Your information has been sent to [facility]. Waiting up to 1 minute for a reply. * Blayne Skinner RN - 05/08/2025 10:02 AM CDT Spoke with rep. She just wanted to make sure we had the BI. Informed her we did and the prescription had already been sent/approved. She verbalized understanding. * Marisol Somers - 05/08/2025 9:56 AM CDTSummary: Maria Fernanda w/ Teze R/c to update Blayne on the status of this matter. Call transferred to Blayne. Thank you * Harpreet Palmer MA - 05/07/2025 3:16 PM CDTAddended by: HARPREET PALMER on: 05/07/2025 03:16 PM Modules accepted: Orders * Harpreet Palmer MA - 05/07/2025 2:57 PM CDT Daughter and pt given foundation # * Marisol Somers - 05/07/2025 2:49 PM CDTSummary: pt r/c Call transferred to Ron for further assistance. * Harpreet Palmer MA - 05/06/2025 3:32 PM CDT Lmom for pt to call * Nubia Arce - 05/05/2025 3:30 PM CDT Patient returned your call. Please give her a call back * Blayne Skinner RN - 05/05/2025 3:06 PM CDT compensation manager maria fernanda called at this time. She states they will finish running the BI then let us know. * Harpreet Palmer MA - 05/05/2025 3:06 PM CDT Lmom for pt to call * Matilde Harris - 05/04/2025 1:16 PM CDT Roberto is calling today in regards to Heriberto Tejeda. They are calling from [facility] They are calling to discuss the income, she is being denied the enrollment form. For a household of3, she needed to make less than $125,00. And having VA assistance. She is closing the case. There are some other discounts to apply for. Third Part Foundations: [facility] [phone] The Patient Assistance [facility] [phone] The Patient Access Network [facility] [phone] A good callback number is: [phone] * Joni Hairston MA - 04/30/2025 1:46 PM CDT Te[employer] form signed and faxed at this time. documented in this encounter Plan of Treatment Upcoming Encounters Date Type Department Care Team (Late st Contact Info) Description 10/08/2025 3:00 PM TOUR SALES REPRESENTATIVE Office Visit [facility] Medical Group Multispecialty Care - [address] [place] [address] Abdon Flynn MD [address] [place] [address] [address] [place] [address] documented as of this encounter Visit Diagnoses Diagnosis Unspecified asthma, uncomplicated (HHS/HCC)- Primary documented in this encounter Additional Health Concerns Infection Onset Date Last Indicated Resolved Time Tuberculosis Rule-Out 04/27/2025 04/27/2025 Assessment Noted Time PHQ-9 Depression Total Score: 0 12/13/19 22 11:54 AM CDT documented as of this encounter Care Teams Database Engineer Relationship Specialty Start Date End Date Pawan Echevarria MD [address] [facility] [address] [place] [address] PCP - General FAMILY PRACTICE 04/17/23 documented as of this encounter
--- OUTSIDE RECORDS SUMMARY | 2025-05-11 15:37 | XMS_ITS | Encounter Summary ---
Author Organization [facility] Healthcare Address [address] [place] [address] Care Team Providers Care Statistical Clerk Advertising Name Role Phone Pawan Echevarria MD Primary Care Provider [phone] Encounter Details Date Type Department Care Team (Late st Contact Info) Description 08/24/2024 Orders Only [facility] Health Information Management [address] [place] [address] Scanning, Provider Social History Tobacco Use Types [...] on file Legal Sex Female 3:43 AM VALVE MAKER Gender Identity Female 02/01/2022 8:55 AM [...] on filedocumented in this encounter Care Teams Statistical Clerk Advertising Relationship Specialty Start Date End Date Pawan Echevarria MD [facility] [address] [address] PCP - General Family Medicine 06/06/23 documented as of this encounter
--- OUTSIDE RECORDS SUMMARY | 2025-05-11 15:37 | XMS_ITS | Encounter Summary ---
Author Organization [facility] Address [address] [place] [address] Care Team Providers Care Instrument Adjuster Name Role Phone Pawan Echevarria MD Primary Care Provider [phone] Encounter Details Date Type Department Care Team (Latest Contact Info) Description 05/08/2025 Scan HEALTH INFO SRVCS Scanned, Doc Med [...] materials from doctor or pharmacy Never 10/24/2024 [facility] Utilities Answer Date Recorded In the [...] and Family Not on file 10/04/2024 Attends [employer] Services Not on file 10/04 Active Member [...] Recorded Patient Health Questionnaire-2 Score 2 12/05/2022 [facility] of Occupat ional Health - Occupational Stress [...] any time in the past 12 m [facility], were you homeless or living in a chcf (including now)? 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 2:27 PM MECHANICAL CAD DESIGNER Legal Sex Female 4:16 PM CDT Gender [...] st Contact Info) Description 10/08/2025 3:00 PM MECHANICAL CAD DESIGNER Office Visit [facility] Medical Group Multispecialty Care - [facility] [address] [facility] [address] [place] [address] Abdon Flynn MD [address] [facility] [address] [place] [address] documented as of this encounter Visit Diagnoses Not on filedocumented in this encounter Additional Health Concerns Infection Onset Date Last Indicated Resolved Time Tuberculosis Rule-Out 04/27/2025 04/27/2025 Assessment Noted Time PHQ-9 Depression Total Score: 0 12/13/19 22 11:54 AM CDT documented as of this encounter Care Teams Instrument Adjuster Relationship Specialty Start Date End Date Pawan Echevarria MD [facility] [address] [place] [address] PCP - General FAMILY PRACTICE 04/17/23 documented as of this encounter
--- OUTSIDE RECORDS SUMMARY | 2025-05-11 15:37 | XMS_ITS | Encounter Summary ---
Author Organization [facility] Address [facility] [place] [address] Care Team Providers Care Basket Weaver Name Role Phone Edilberto Crisostomo MD Primary Care Provider [phone] Gavin Gross MD Primary Care Provider [phone] Pawan Echevarria MD Primary Care Provider [phone] Encounter Details Date Type Department Care Team (Late st Contact Info) Description 03/22/2021 MyChart Message Enc [facility] Medical Group Multispecialty Care - [address] [place] [id number] Abdon Flynn MD [address] [place] [address] [address] [place] [address] Referral Request Social History Tobacco Use Types [...] Sex Assigned at Female 10/03/2024 2:27 PM CONCRETE MIXING PLANT LABORER Legal Sex Female 4:16 PM CDT Gender Identity Not on file Sexual Orientation Not on file documented as of this encounter Plan of Treatment Upcoming Encounters Date Type Department Care Team (Late st Contact Info) Description 10/08/2025 3:00 PM CONCRETE MIXING PLANT LABORER Office Visit [facility] Medical Group Multispecialty Care - [facility] [address] [facility] [place] [address] Abdon Flynn MD [address] [facility] [address] [place] [address] documented as of this encounter Visit Diagnoses Not on filedocumented in this encounter Additional Health Concerns Infection Onset Date Last Indicated Resolved Time COVID-19 Rule Out 10/03/2024 10/03/2024 10/03/2024 5:30 PM CONCRETE MIXING PLANT LABORER COVID-19 Rule Out 10/04/2024 10/04/2024 10/04/2024 3:19 AM CONCRETE MIXING PLANT LABORER Influenza - Seasonal 10/04/2024 10/04/2024 025 12:32 AM CONCRETE MIXING PLANT LABORER Tuberculosis Rule-Out 04/27/2025 04/27/2025 documented as of this encounter Care Teams Basket Weaver Relationship Specialty Start Date End Date Edilberto Crisostomo MD [address] [place] [address] PCP - General FAMILY PRACTICE 12/10/17 07/12/22 Gavin Gross MD [address] [facility] [address] [place] [address] PCP - General FAMILY PRACTICE 07/13/22 04/16/23 Pawan Echevarria MD [facility] [facility] [address] [place] [address] PCP - General FAMILY PRACTICE 04/17/23 documented as of this encounter
[2025-05-11 16:12] LABS: NT Pro B Type Natriuretic Pept 689 pg/mL (19.9-100)
== END 2025-05-11 15:28 | disposition home or self-care (01) ==
PROVIDERS: PCP Family Medicine; Visit Provider Nurse Practitioner Adult Health
DX: I50.812 Chronic right heart failure (principal)
CPT/HCPCS: 36415; 83880

== ENCOUNTER 2025-07-21 10:10 | Outpatient (CLI) | payer MEDICARE, OTHER, SELFPAY ==
--- NOTE | ~2025-07-21 | CT_ITS ---
Exam: CT chest, abdomen and pelvis with contrast Clinical History: [Left-sided breast cancer. ] Comparison: [ CT chest, abdomen and pelvis 04/07/2025] Technique: Multiple axial CT images of the chest, abdomen and pelvis were obtained with IV contrast. Sagittal and coronal reformatted images were obtained. FINDINGS: Lungs and pleura: [ Tracheobronchial tree is patent. No pneumothorax. No pleural effusion. No pulmonary mass. Mild apical scarring. Stable bronchiectasis in the right middle lobe, lingula and lower lobes. Redemonstration of diffuse interstitial and tree-in-bud opacities scattered throughout both lungs similar to the study from 04/07/2025. Mediastinum and pulmonary faisal: [ No mass or adenopathy.] Axillary/intramammary and supraclavicular: [ No mass or adenopathy.] Heart and great vessels: [ Heart is borderline enlarged, unchanged..[ [ No pericardial effusion.] [ No aneurysm.] Mild atherosclerotic disease in the thoracic aorta. Breasts: Grossly stable CT appearance of both breasts. Liver: [ No mass.] [ No intrahepatic biliary duct dilatation.] Gallbladder: There is a gallstone in the gallbladder. Common bile duct: [ Normal caliber.] [ No stones.] Spleen: Stable too small to characterize low-attenuation lesion in the spleen. Pancreas: [ No mass. No pancreatic fluid collection.] Adrenals: [ No masses.] Kidneys: [ No masses. No hydronephrosis.][ Stable cyst in the left kidney.] There are a few too small to characterize low-attenuation lesions in the kidneys. Lymph nodes: [ No adenopathy in the abdomen or pelvis.] Stomach, small bowel and colon: [ No bowel wall thickening or obstruction.] Large amount of stool in the nondilated large bowel. Peritoneum cavity: [ No mesenteric fat stranding or fluid.] Bladder: [ Unremarkable.] Osseous structures:[ Multilevel degenerative change in the visualized spine.] Left hip arthroplasty with surrounding artifact which limits evaluation. Grossly stable appearance of the compression fractures of T6, T7 and T8 with associated sclerotic densities throughout the T6, T7 and T8 vertebral bodies. Grade 1 retrolisthesis of L5 on S1, unchanged. Abdominal aorta: [ No aneurysm.] Additional findings: Grossly stable appearance of the 4.0 cm simple appearing right adnexal cyst. IMPRESSION: 1. Redemonstration of diffuse interstitial and tree-in-bud opacities scattered throughout both lungs similar to the study from 04/07/2025. 2. No new or progressive metastatic chest, abdomen or pelvis. 3. Cholelithiasis. 4. No significant change in the 4.0 cm simple appearing right adnexal cyst 5. Cholelithiasis 6. Grossly stable appearance of the compression fractures of T6, T7 and T8 with associated sclerotic densities throughout the T6, T7 and T8 vertebral bodies Reviewed, dictated and finalized at location Q. [facility]
--- NOTE | ~2025-07-21 | NM_ITS ---
NM bone scan whole body INDICATION: Malignant neoplasm of the left breast TECHNIQUE: The patient was injected with 26.5 mCi Tc 99m HDP. Gamma camera images of the region of interest and whole body were obtained. COMPARISON: Bone scan dated 04/07/[address] dated 07/21/2025 FINDINGS: Decreased intensity of radiotracer uptake in right sixth rib anteriorly, likely healing right rib fracture. Moderate persistent uptake in the midthoracic spine consistent with known compression fractures. No new focal areas of abnormal radiotracer uptake. There is focal soft tissue uptake in the right forearm, likely related to injection site. IMPRESSION: 1: Decreased intensity of radiotracer uptake anterior right sixth rib consistent with healing rib fracture. 2: Mild-moderate radiotracer uptake in thoracic spine, corresponding to site of known compression fractures. Reviewed, dictated and finalized at location O. RONMENT COORDINATOR IMPRESSION: 1: Decreased intensity of radiotracer uptake anterior right sixth rib consiste nt with healing rib fracture. 2: Mild-moderate radiotracer uptake in thoracic spine, corresponding to site of known compression fractures.
--- OUTSIDE RECORDS SUMMARY | 2025-07-21 11:35 | XMS_ITS | Encounter Summary ---
Author Organization [facility] Healthcare Address [address] [place] [address] Care Team Providers Care Organ Pipe Maker Metal Name Role Phone Pawan Echevarria MD Primary Care Provider [phone] Encounter Details Date Type Department Care Team (Late st Contact Info) Description 12/17/2024 Orders Only [facility] Health Information Management [address] [place] [address] Scanning, Provider Social History Tobacco Use Types [...] on file Legal Sex Female 3:43 AM ORDER ENTRY REPRESENTATIVE Gender Identity Female 02/01/2022 8:55 AM CDT [...] on filedocumented in this encounter Care Teams Organ Pipe Maker Metal Relationship Specialty Start Date End Date Pawan Echevarria MD [facility] [address] [address] PCP - General Family Medicine 06/06/23 documented as of this encounter
--- OUTSIDE RECORDS SUMMARY | 2025-07-21 11:35 | XMS_ITS | Clinical Summary ---
Author Organization [facility] Negra Priestolga Address [address] [place] [address] Care Team Providers Care Environmental Health Officer Name Role Phone Pawan Echevarria MD Primary Care Provider [phone] Allergies Active Allergy Reactions Criticality Noted Date Comments Ipratropium Unknown 07/04/2018 Medications albuterol sulfate HFA 90 mcg/actuation aerosol inhaler Take 2 Puffs by inhalation every 6 hours as needed. 03/06/20 22 Active albuterol (PROVENTIL,JEFFERY MELIDA) 2.5 mg /3 mL (0.083 %) Solution for Nebulization Take 2.5 mg by inhalation every 4 hours as needed. 12/06/19 23 Active ALPRAZolam (XANAX) 0.5 mg tablet Take 0.5 mg by mouth 3 times daily as needed for Anxiety. 10/15/19 24 Active Calcium-Cholecal ciferol, D3, 500 mg-3.125 mcg (125 unit) Tablet Take by mouth. Activ e empagliflozin (JARDIANCE) 10 mg tablet Take 10 mg by mouth daily. 06/17/20 23 Active Entresto 24-26 mg Tablet Take 1 Tablet by mouth 2 times daily. 06/17/20 23 Active sertraline (ZOLOFT) 100 mg tablet Take 100 mg by mouth daily. 09/28/19 24 Active Anoro Ellipta 62.5-25 mcg/actuation Disk with Device Take 1 Puff by inhalation daily. 01/12/20 21 Active HYDROcodone-acet aminophen (NORCO) 5-325 mg tablet Take 1 Tablet by mouth every 6 hours as needed for Pain. 11/26/19 25 Active famotidine (PEPCID) 40 mg tablet Take 40 mg by mouth daily at bedtime. 10/17/19 25 Active mirtazapine (REMERON) 7.5 mg tablet Take 7.5 mg by mouth daily at bedtime. 10/17/19 25 Active ondansetron (ZOFRAN) 4 mg Tablet Take 4 mg by mouth 1 time daily as needed for Nausea. 09/17/19 25 Active anastrozole (Arimidex) 1 mg tablet Take 1 Tablet (1 mg) by mouth daily. 90 Tablet 5 12/11/19 25 Active spironolactone (ALDACTONE) 25 mg tablet Take 25 mg by mouth daily. 01/13/20 25 Active gabapentin (NEURONTIN) 100 mg capsule Take 100 mg by mouth daily in the morning. 01/13/20 25 Active furosemide (LASIX) 20 mg tablet Take 20 mg by mouth Continuous as needed for Other (See Comment) (water retention/swelli ng). 12/16/19 25 Active flecainide (TAMBOCOR) 100 mg tablet Take 100 mg by mouth 2 times daily. 12/02/19 25 026 Active formoterol (PERFOROMIST) 20 mcg/2 mL Solution for Nebulization Take 20 mcg by inhalation one time only. Active revefenacin (Yupelri) 175 mcg/3 mL Solution for Nebulization Take by inhalation. Active palbociclib (Ibrance) 125 mg tablet TAKE 1 TABLET DAILY FOR 21 DAYS ON AND 7 DAYS OFF EVERY 28 DAY CYCLE. 21 Tablet 4 06/08/20 25 Active azithromycin (ZITHROMAX) 500 mg tablet Take 500 mg by mouth. Every Sunday, Sunday, Sunday05/01/20 25 Active Tezspire 210 mg/1.91 mL (110 mg/mL) subcutaneous pen injector Inject 210 mg by subcutaneous injection every 28 days. Active metoprolol succinate (TOPROL XL) 25 mg Extended Release 24 hour tablet Take 25 mg by mouth daily. 06/23/20 24 025 Active Problems No known active problems Encounters Date Type Department Care Team Description 07/15/2025 External Device Data [facility] ABSTRACTION Provider, Abstract 07/14/2025 External Device Data [facility] ABSTRACTION Provider, Abstract 07/07/2025 External Device Data [facility] ABSTRACTION Provider, Abstract 06/23/2025 2:00 PM CDT Office Visit [facility] Oncology [facility] [place] [address] [place] [address] Warren Vaughn MD Malignant neoplasm of left breast in female, estrogen receptor positive, unspecified site of breast (CMS/HCC) (Primary Dx) 06/08/2025 Refill [facility] Oncology and Hematology [facility] [address] [place] [address] Warren Vaughn MD 05/19/2025 External Device Data [facility] ABSTRACTION Provider, Abstract 05/05/2025 External Device Data [facility] ABSTRACTION Provider, Abstract 04/22/2025 External Device Data [facility] ABSTRACTION Provider, Abstract from Last 3 Months Family History Medical [...] Sign Reading Time Taken Comments Blood Pressure 134/54 06/23/2025 2:02 PM CDT Pulse 84 06/23/2025 2:02 PM CDT Temperature 36.7 C (98 F) 06/23/2025 2:02 PM CDT Respiratory Rate 17 06/23/2025 2:02 PM CDT Oxygen Saturation 93% 06/23/2025 2:0 2 PM CDT 5 liters O2 Inhaled Oxygen Concentration - - Weight 53.3 kg (117 lb 6.4 oz) 06/23/20 2:02 PM CDT Height 162.6 cm (5' 4) 11/29/2023 3:03 PM CDT Body Mass Index 20.15 11/29/2023 3:03 PM CDT Plan of Treatment Upcoming Encounters Date Type Department Care Team (Late st Contact Info) Description 07/29/2025 11:00 AM AGRICULTURAL ENGINEER Office Visit [facility] Oncology and Hematology - [place] [address] [place] [address] Lovely Tomlin MD [address] [place] [address] Health Maintenance Due Date Last Done Comments DTAP/TDAP/TD VACCINES (1 - Tdap) 02/14/1960 PNEUMOCOCCAL VACCINE 50+ YEA RS (1 of 2 - PCV) 02/14/1960 ZOSTER VACCINE (1 of 2) 02/14/1960 RSV VACCINE (60+ or ) (1 - 1-dose 75+ series) 02/14/2016 COVID-19 Vaccine (3 - Pfizer risk series) 12/17/2020 11/19/2020, 10/26/2020 INFLUENZA VACCINE (#1) 2025 OSTEOPOROSIS SCREENING 06/02/2029 06/02/2024 Insurance MEDICARE PART A AND B [employer] Care Teams Environmental Health Officer Relationship Specialty Start Date End Date Pawan Echevarria MD [address] [place] [phone] PCP - General Family Practice 11/29/23
--- OUTSIDE RECORDS SUMMARY | 2025-07-21 11:35 | XMS_ITS | Data Portability ---
Author Organization [facility], Telehealth (patients home) Address [address] [place] [address] Assessment Encounter Date Assessment Date Assessment LastModified by Organization Details LastModified Time 08/28/2023 08/28/2023 Patient evaluated for depressive and anxiety disorder. History and exam indicate MDD/ RD. I recommend restarting zoloft 25mg daily. Discussed goals of treatment and effectiveness of current treatment. Discussed follow up and orders indicated below. FAce to face 90 minutes [email or web address] Not available 08/28/2023 22:09:45 09/03/2024 09/03/2024 Met with Nora today for follow up on her mod MDD and RD PHQ9=10 GAD7= 13 mod [email or web address] Not available 09/03/2024 20:31:20 10/01/2024 10/01/2024 Met with Nora oden to follow-up on Zoloft PHQ-[address]-7 15 severe [email or web address] Not available 10/01/2024 13:30:17 Plan of Treatment Reminders Order Date Submit Date Provider Last Modified By Organization Details Last Modified Time Details Appointments None recorded . Lab None recorded . Referral None recorded . Procedures None recorded . Surgeries None recorded . Imaging None recorded . Medication Orders Zoloft 50 mg tablet 025 10/01/19 25 [facility] #[id number], [address], [place], [id number], 13:29:57 Zoloft 50 mg tablet 024 09/03/20 24 [facility] #[id number], [address] [facility] [place], [id number], 4 15:01:16 Zoloft 50 mg tablet 023 09/03/20 24 [facility] #36602, [address] [facility], [place], [place], [id number], 4 14:31:19 Zoloft 25 mg tablet 023 08/28/20 23 [email or web address] [facility] #62115, [address] [facility], [place], [place], [id number], 4 14:30:55 Patient TargetsNo targets recorded. Patient Instructions Encounter Date Encounter Id Patient Instructions Last Modified By Organization Details Last Modified Time 08/28/2023 [id number] recommend returning to therapy May benefit from grief support groups. rtc 2 weeks [email or web address] Not available 08/28/2023 16:21:39 Reason for Referral None Reported. Problems Name Problem SNOMED Code Status Onset Date Resolution Date Notes Provider Name and Address Organization Details Recorded Time Generalized anxiety disorder 67919403 Active 2022 Selam Neumann CNM, [facility] [address], [place], [address], [facility] 3 16:13:02 Depressive disorder 64273841 [facility] 14:08:50 Bronchiectasi s 95890416 Active 2022 Mark orona, [facility] 3 14:15:47 Moderate recurrent major depression 19346218 Active 2022 Selam Neumann CNM, [facility] [address], [place], [address], [facility] 3 16:12:57 Anxiety 70458247 Active 2022 Selam Neumann CN[facility], [facility] [address], [place], [address], [facility] 3 13:22:24 Mild recurrent major depression 05078824 Active 2022 Selam Neumann CNM, [facility] [address], [place], [address], [facility] 3 13:22:45 Blood pressure above reference range 71761399 Active 2024 Selam Neumann CNM, [facility] [address], [place], [address], [facility] 5 13:28:28 Problem Notes None recorded. Procedures Surgical History Date Name Laterality Status Provider Name and Address Organization Details Recorded Time 08/21/20 Partial Hysterectomy completed [facility] 08/28/2023 14:18:29 biopsy of breast completed [facility] 09/03/2024 14:31:54 partial hip replacement by prosthesis completed [facility] 08/28/2023 14:18:05 [facility]end[facility] 14:18:46 Imaging Results None recorded. [...] 80 /min 158/78 mm[Hg] Selam Neumann CNM, [facility]- [address], [place], [address] 10/01/2024 13:07:36 Date Recorded Body height Body mass index (BMI) Body weight Heart rate Systolic And Diastolic Provider Name and Address Organization Details Last Updated DateTime 10/01/2024 162.56 cm 22.7 kg/m2 19587.19 g 92 /min 177/91 mm[Hg] Maddie [facility] 10/01/2024 12:15:14 Date Recorded Body height Body mass index (BMI) Body weight Heart rate Systolic And Diastolic Provider Name and Address Organization Details Last Updated DateTime 08/28/2023 162.56 cm 22.6 kg/m2 17582.04 g 84 /min 124/64 mm[Hg] Mark Douglas [facility] 08/28/2023 14:11:31 Date Recorded Body height Body mass index (BMI) Body weight Heart rate Systolic And Diastolic Provider Name and Address Organization Details Last Updated DateTime 09/03/2024 162.56 cm 23 kg/m2 11701.38 g 49 /min 121/70 mm[Hg] Maddie Gonzalez [facility] 09/03/2024 14:30:09 Date Recorded Body height Body mass index (BMI) Body weight Heart rate Systolic And Diastolic Provider Name and Address Organization Details Last Updated DateTime 09/11/2023 162.56 cm 22.5 kg/m2 81830.6 g 73 /min 151/80 mm[Hg] Selam Neumann CNM, [facility]- [address], [place], [address] 13:11:52 Social History Question Answer Notes LastModified by Organizat ion Details LastModified Time Tobacco Smoking Status Former Smoker Mark Douglas [facility] 08/28/2023 14:22:30 What Is Your Level [...] anxious, or unable to sleep at night)? [id number] [email or web address] Information not available 08/28/2023 Family History [...] Diagnosis SNOMED-CT Code Diagnosis ICD10 Code Diagnosis IMO Codes Diagnosis Note 1323 Selam Neumann CNM, [facility]- Main Office [address] [place] [address] 08/28/2023 14:01:40 08/28/2023 16:04:28 Moderate recurrent major depression 01978291 F33.1 restart zoloft 25mg daily, encouraged to take at bedtime. discussed can cause some gi disturbanc e but usually does not last longer than a few weeks Generalize d anxiety disorder 11449283 F41.1 start zoloftcont inue xanax as needed- prescribed by Dr Echevarria 1461 Selam Neumann CNM, [facility] Main Office [address] [facility] [address] 09/11/2023 12:02:44 09/11/2023 13:01:59 Anxiety 05164304 F41.9 continue Xanax as needed, as prescribed by pcp Mild recur rent major depression 45854450 F33.0 increase zoloft to 50mg dailyencou raged getting into grief counseling or therapy at [facility] e counseling rtc 3 weeks [id number] Selam Neumann CNM, [facility] Main Office [address] [place] [address] 09/03/2024 14:24:18 09/05/2024 13:09:29 Anxiety 10659855 F41.9 continue Xanax as needed, as prescribed by pcp Moderate r ecurrent major depression 49773280 F33.1 increase zoloft to 50mg daily, encouraged to take at bedtime. discussed can cause some gi disturbanc e but usually does not last longer than a few weeksrtc 4 weeksencou rage therapy weekly- starting back to therapy with FRANCISCO 5098 Selam Neumann CNM, [facility] Main Office [address] [place] [address] 10/01/2024 12:12:19 10/01/2024 15:35:02 Moderate recurrent major depression 23471047 F33.1 continue zoloft 50mg daily,rtc 3 monthsenco urage therapy weekly- starting with new therapist next week Anxiety 26978322 F41.9 continue Xanax as needed, as prescribed by pcp Blood pres sure above reference range 27129493 R03.0 bp 177/91 on arrival to office. retake 158/78. Seeing Dr Loja cardiology today at 1pm Health Concerns Section Related Observation LastModified by Organization Santosh damian LastModified Time None Recorded Concern Status LastModified by Organization Details LastModified Time None Recorded Advance Directives Directive None Recorded Payers Insurance Date Sequence Insurance Name Policy Number Policy Huerta Covered Member ID Huerta Member ID Guarantor Name 05/30/2025 1 [place] (MEDICARE) Nora Tejeda [id number] Nora Tejeda 10/01/2024 2 FOR LIFE ( - MEDICARE SUPPLEMENT) Nora Tejeda 10/01/2024 2 FOR LIFE () Nora Tejeda [id number] Nora Tejeda 10/01/2024 2 FOR LIFE () Nora Tejeda [id number] Nora Tejeda Notes Date Note Type Note [...] AH or VH. Energy is good. Selam Neumann, MORIS, PMH[facility]-BC [address], [place], [address], [facility] 08/28/2023 22:20:29 09/11/2023 text/html ROS as noted in the HPI Met with Nora this afternoon. Nora is [...] VH. Energy is good. Selam Neumann CNM, [facility]- [address], [place], [address], [facility] 09/11/2023 13:44:31 09/03/2024 text/html Met with Nora [...] a day. Denies isolating self. Went to [facility] on sunday. Sleep- No problems falling or staying asleep. Takes Xanax prior to bedtime. Always wakes early in am. Denies any SI or Hi. Denies any AH or VH. Getting back into therapy with FRANCISCO. Selam Neumann CNM, [facility]- [address], [place], [address], [facility] 09/03/2024 20:45:26 10/01/2024 text/html Met with Nora [...] and will discuss that further with her bag turner today. Nora denies any SI or HI. Denies any auditory hallucinations or visual hallucinations. Starting with a new therapist next week A agnes [place]. Selam Neumann CNM, PMHNP-BC [address], [place], [address], [facility] 10/01/2024 13:30:53 OBGyn Episode No OBEpisode recorded.
--- OUTSIDE RECORDS SUMMARY | 2025-07-21 11:35 | XMS_ITS | Encounter Summary ---
Author Organization [facility] Address [address] [place] [address] Phone Care Team Providers Care Sheet Metal Work Furnace Installer Name Role Phone Geeta Crisostomo MD Primary Care Provider [phone] Gavin Gross MD Primary Care Provider [phone] Pawan Echevarria MD Primary Care Provider [phone] Encounter Details Date Type Department Care Team [...] on file Legal Sex Female 3:43 AM BITE BLOCK MAKER Gender Identity Female 02/01/2022 8:55 AM [...] on filedocumented in this encounter Care Teams Sheet Metal Work Furnace Installer Relationship Specialty Start Date End Date Geeta Crisostomo MD [address] [place] [address] PCP - General Family Medicine 03/08/18 03/28/22 Gavin Gross MD [address] [place] [address] PCP - General Family Medicine 03/29/22 06/05/23 Pawan Echevarria MD [address] [place] [address] [place] [address] PCP - General Family Medicine 06/06/23 documented as of this encounter
--- OUTSIDE RECORDS SUMMARY | 2025-07-21 11:35 | XMS_ITS | Encounter Summary ---
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
--- OUTSIDE RECORDS SUMMARY | 2025-07-21 11:35 | XMS_ITS | Encounter Summary ---
Author Organization [facility] Healthcare Address [address] [place] [address] Care Team Providers Care Hardwood Floor Installation Helper Name Role Phone Pawan Echevarria MD Primary Care Provider [phone] Encounter Details Date Type Department Care Team (Late st Contact Info) Description 05/29/2025 Results Follow-Up [facility] Medical Group Cardiology [address] [place] [address] Heaven Garcia NP [address] [facility] [address] [place] [address] Basic metabolic panel Social History Tobacco Use Types Packs/Day Years [...] on file Legal Sex Female 3:43 AM DIRECTOR COMPLIANCE Gender Identity Female 02/01/2022 8:55 AM CDT Sexual Orientation Straight 02/01/2022 8: 55 AM CDT documented as of this encounter Plan of Treatment Not on file documented as of this encounter Visit Diagnoses Not on filedocumented in this encounter Care Teams Hardwood Floor Installation Helper Relationship Specialty Start Date End Date Pawan Echevarria MD [facility] [address] [address] PCP - General Family Medicine 06/06/23 documented as of this encounter
--- OUTSIDE RECORDS SUMMARY | 2025-07-21 11:35 | XMS_ITS | Encounter Summary ---
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
--- OUTSIDE RECORDS SUMMARY | 2025-07-21 11:35 | XMS_ITS | Clinical Summary ---
Author Organization [facility] Virtual Care Address [address] [place] [phone] Phone Care Team Providers Care Diamond Driller Helper Name Role Phone Pawan Echevarria MD Primary Care Provider [phone] Allergies Active Allergy Reactions Criticality Noted Date Comments Dog Dander Shortness of breath High 12/15/2024 Medications calcium carbonate-vitamin D3 500 mg(1,250mg) -400 [...] VITAMIN ORAL) Take by mouth Ac tive sertraline (ZOLOFT) 50 mg tablet Take 1 [...] mg total) by mouth 10/09/19 25 Active furosemide (LASIX) 20 mg tabletIndications: Nonischemic cardiomyopathy (HCC) Take 1 tablet (20 mg total) by mouth daily as needed (edema and/or weight gain) 30 tablet 1 01/13/20 25 Active azithromycin (ZITHROMAX) 500 mg tablet Take 1 tablet (500 mg total) by mouth 3 (three) times a week Active busPIRone (BUSPAR) 10 mg tabletIndications: Generalized Anxiety Disorder Take 1 tablet (10 mg total) by mouth daily Active sacubitriL-valsart an (ENTRESTO) 49-51 mg tabletIndications: chronic heart failure Take 1 tablet by mouth 2 (two) times a day 180 tablet 3 05/19/20 25 Active spironolactone (ALDACTONE) 25 mg tabletIndications: Nonischemic cardiomyopathy (HCC) Take 0.5 tablets (12.5 mg total) by mouth daily 05/19/20 25 Active metoprolol XL (TOPROL-XL) 25 mg extended release tabletIndications: Nonischemic cardiomyopathy (HCC) Take 1 tablet (25 mg total) by mouth daily 90 tablet 1 07/07/20 25 026 Active metoprolol XL (TOPROL-XL) 25 mg extended release tabletIndications: Nonischemic cardiomyopathy (HCC) Take 1 tablet (25 mg total) by mouth daily 90 tablet 1 04/15/20 25 025 Discontin ued(Reord er) Active Problems Problem [...] AFBs on stain and NGTD Bacterial cx (5/14): very light rowth of PSAR (S: cefe, [...] CMP checked today. - Spoke with her clinical assessment manager, Dr. Abdon Flynn ([facility], to discuss the possibility of sparing [...] 81 y.o. 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 Cardiology [address] [place] [address] Damien Plaza MD Med Refill 05/29/2025 Results Follow-Up [facility] [address] [place] [address] Heaven Rubin NP Basic metabolic panel 05/19/2025 1:30 PM CDT Office Visit [facility] Cardiology [address] [place] [address] [address] [place] [address] Heaven Rubin NP Nonischemic cardiomyopathy (HCC); Chronic hypoxic respiratory failure, on home oxygen therapy (HCC) 05/12/2025 Results Follow-Up [facility] [address] [place] [address] [address] [place] [address] Heaven Rubin NP Transthoracic Echo (TTE) Complete W Doppler/CF 05/11/2025 2:00 PM CDT Ancillary Procedure [facility] [address] [place] [address] [address] [place] [address] Chronic right-sided congestive heart failure (HCC) 05/05/2025 Telephone [facility] [address] [place] [address] [address] [place] [address] Damien Plaza MD from Last 3 Months [...] on file Legal Sex Female 3:43 AM BICYCLE MECHANIC Gender Identity Female 02/01/2022 8:55 AM CDT Sexual Orientation Straight 02/01/2022 8: 55 AM CDT Last Filed Vital Signs Vital Sign Reading Time Taken Comments Blood Pressure 122/54 05/19/2025 1:37 PM CDT Pulse 72 05/19/2025 1:37 PM CDT Temperature 36.9 C (98.5 F) 10/04/2022 11:40 AM BICYCLE MECHANIC Respiratory Rate 18 05/19/2025 1:37 PM CDT Oxygen Saturation 92% 05/19/2025 1:37 PM CDT Inhaled Oxygen Concentration - - Weight 53.5 kg (118 lb) 05/19/2025 1:37 PM CDT Height 162.6 cm (5' 4) 05/19/2025 1:37 PM CDT Body Mass Index 20.25 05/19/2025 1:37 PM CDT Plan of Treatment Health Maintenance [...] 65+ 10/04/2023 10/04/2022 Influenza Vaccine (#1) 2025 Procedures Procedure Name Priority Date/Time Associated Diagnosis Comments BASIC METABOLIC PANEL Routine 05/27/2025 2:17 PM CDT Nonischemic cardiomyopathy (HCC) TRANSTHORACIC ECHO (TTE) COMPLETE W DOPPLER/CF WO CONTRAST Routine 05/11/2025 3:08 PM CDT Chronic right-sided congestive heart failure (HCC) PRO B-TYPE NATRIURETIC PEPTIDE Routine 05/11/2025 Chronic right-sided congestive heart failure (HCC) from Last 3 Months Results * (ABNORMAL) Basic metabolic panel (05/27/2025 2:17 PM CDT) Glucose 128 65 - 139 mg/dL [facility] Comment: Non-fasting reference interval BUN 21 7 - 25 mg/dL [facility] Creatinine 0.66 0.60 - 0.95 mg/dL [facility] eGFR 86 > OR = 60 mL/min/1.7 3m2 [facility] BUN/creat ratio SEE NOTE: 6 - 22 (calc) [facility] Comment: Not Reported: BUN and Creatinine are within reference range. Sodium 137 135 - 146 mmol/L [facility] Potassium, pl 5.1 3.5 - 5.3 mmol/L [facility] Chloride 95(L) 98 - 110 mmol/L [facility] CO2 35(H) 20 - 32 mmol/L [facility] Calcium 9.1 8.6 - 10.4 mg/dL [facility] Blood 05/27/2025 2:17 PM CDT 05/27/2025 2:18 PM CDT Narrative [facility] - 05/28/2025 4:16 AM CDT FASTING:NO FASTING: NO Heaven Rubin SUG[facility] [employer]ER LAB BLOOD ORDERABLES Layla l Result DESHAUN [address] [facility] [address] [place] [address] * TRANSTHORACIC ECHO (TTE) COMPLETE W DOPPLER/CF WO CONTRAST (05/11/2025 3:08 PM CDT) Estimated EF 35 % CONS SCIMAGE EF Mod BP 47 % CONS SCIMAGE Anatomical Region Laterality Modality Ultrasound 05/11/2025 2:20 PM CDT Narrative 05/11/2025 8:[address] [facility]iology [address], [place] [address] [address] [facility] [address], [place] [address] P:[phone] P:[phone] Echocardiographic Report Patient Name: HERIBERTO TEJEDA M : 1940 Study Date: 05/11/2025 2:20:33 PM Gender: F Ferryboat Operator: Sherrell Cedeño (Randall)([place]), [facility] Location: [facility] Provider: HEAVEN RUBIN Height(Cm): 163 BSA: 1.6 Weight(Kg): 56.7 Heart Rate: 85 BP: 124 / 58 Quality: Good Order Provider: HEAVEN RUBIN PROCEDURES: Echocardiographic Report: Transthoracic echocardiogram with complete 2D, M-Mode, and color Doppler examination. With Strain Analysis. INDICATIONS: I50.812 Chronic right heart failure. MEASUREMENTS: 2D/MM Value Range Doppler Value Range EF Mod BP 47 % [ 54 - 74 ] OKSANA Vmax 1.74 cm2 [ 2.00 - 4.00 ] Estimated EF 35 % AV Mean PG 7 mmHg LV GLS -11.70 % AV Peak Ariel 1.64 m/s [ 1.00 - 1.70 ] LVIDd 2D 3.89 cm [ 3.80 - 5.20 ] AV Peak PG 11 mmHg LVIDs 2D 3.19 cm [ 2.20 - 3.50 ] AV VTI 29.91 cm LVPWd 2D 0.86 cm [ 0.60 - 0.90 ] LVOT Diam 1.77 cm [ 1.70 - 2.10 ] IVSd 2D 0.86 cm [ 0.60 - 0.90 ] LVOT Peak Ariel 1.17 m/s [ 0.70 - 1.10 ] AoR Diam 2D 2.95 cm [ 2.70 - 3.70 ] LVOT VTI 22.98 cm LA Volume 46.58 ml [ 22.00 - 52.00 ] MV E Peak Ariel 0.89 m/s [ 0.60 - 1.30 ] LA Volume Index 29 cc/m2 [ 16 - 28 ] MV A Peak Ariel 0.91 m/s [ 1.00 - 1.20 ] RA Volume 38.96 ml MV Decel Time 136 msec [ 104 - 258 ] PV Peak Ariel 1.11 m/s [ 0.40 - 0.80 ] TR Peak Ariel 2.99 m/s [ 1.00 - 2.80 ] TR Peak PG 36 mmHg RVSP 41.00 mmHg [ 10.00 - 36.00 ] RV S` 15.01 mmHg Lateral E` 0.09 m/s [ 0.10 - 0.15 ] Septal E` 0.06 m/s [ 0.08 - 0.15 ] E` 0.08 m/s E/E` 12 Tapse 2.48 cm [ 1.71 - 5.00 ] 2D/MM Value Range Doppler Value Range - FINDINGS: Interpretation Site: Exam was interpreted at [facility]. Left Ventricle: Normal left ventricular size. Normal left ventricular wall thickness. Paradoxical septal motion consistent with IVCD or bundle branch block. Diastolic dysfunction is present. Ejection fraction is measured at 47 %. Ejection Fraction is visually estimated to be 35 %. Global Longitudinal Strain is -12 %. GLS is abnormal. Right Ventricle: Normal right ventricular systolic function. Mild enlargement of right ventricle. Left Atrium: The left atrium is normal in size. Right Atrium: The right atrium is normal in size. Atrial Septum: Normal atrial septum. Mitral Valve: Normal appearance of the mitral valve. Mild mitral valve regurgitation. There is no hemodynamically significant mitral stenosis by Doppler. Aortic Valve: No evidence of hemodynamically significant aortic stenosis by Doppler. Aortic cusps appear mildly sclerotic. Probable trileaflet aortic valve, although not all leaflets are visualized. No aortic regurgitation. Tricuspid Valve: Normal appearance of the tricuspid valve. Estimated peak RVSP is 41 mmHg. Mild tricuspid regurgitation. Pulmonic Valve: Normal appearance of the pulmonic valve. No evidence of pulmonic regurgitation. Pericardium: Normal pericardium with no significant pericardial effusion. Aorta: Sinus of Valsalva is normal. IVC: Normal size and normal respiratory collapse consistent with normal right atrial pressure (<5 mmHg). Pulmonary Artery: Normal pulmonary artery size. CONCLUSIONS: Normal left ventricular size. Normal left ventricular wall thickness. Paradoxical septal motion consistent with IVCD or bundle branch block. Diastolic dysfunction is present. Ejection fraction is measured at 47 %. Ejection Fraction is visually estimated to be 35 %. Global Longitudinal Strain is -12 %. GLS is abnormal. Mild mitral valve regurgitation. Estimated peak RVSP is 41 mmHg. Mild tricuspid regurgitation. Electronically Signed By: Dr. Jorge Alberto Nayak [facility] 05/11/2025 8:52:40 PM CDT Procedure Note Jorge Alberto Nayak MD - 05/11/2025 [facility] Cardiology [address] [facility] [address] [address] [address] [facility] [address], [place] [address] P:[phone] P:[phone] Echocardiographic Report Patient Name: HERIBERTO TEJEDA M : 1940 Study Date: 05/11/2025 2:20:33 PM Gender: F Ferryboat Operator: Sherrell Wong)([place]), [facility] Location: [facility] Provider: HEAVEN RUBIN Height(Cm): 163 BSA: 1.6 Weight(Kg): 56.7 Heart Rate: 85 BP: 124 / 58 Quality: Good Order Provider: HEAVEN RUBIN PROCEDURES: Echocardiographic Report: Transthoracic echocardiogram with complete 2D, M-Mode, and color Dopplerexamination. With Strain Analysis. INDICATIONS: I50.812 Chronic right heart failure. MEASUREMENTS: 2D/MM Value Range Doppler ValueRange EF Mod BP 47 % [ 54 - 74 ] OKSANA Vmax 1.74cm2 [ 2.00 - 4.00 ] Estimated EF 35 % AV Mean PG 7mmHg LV GLS -11.70 % AV Peak Ariel 1.64m/s [ 1.00 - 1.70 ] LVIDd 2D 3.89 cm [ 3.80 - 5.20 ] AV Peak PG 11mmHg LVIDs 2D 3.19 cm [ 2.20 - 3.50 ] AV VTI 29.91cm LVPWd 2D 0.86 cm [ 0.60 - 0.90 ] LVOT Diam 1.77cm [ 1.70 - 2.10 ] IVSd 2D 0.86 cm [ 0.60 - 0.90 ] LVOT Peak Ariel 1.17m/s [ 0.70 - 1.10 ] AoR Diam 2D 2.95 cm [ 2.70 - 3.70 ] LVOT VTI 22.98cm LA Volume 46.58 ml [ 22.00 - 52.00 ] MV E Peak Ariel 0.89m/s [ 0.60 - 1.30 ] LA Volume Index 29 cc/m2 [ 16 - 28 ] MV A Peak Ariel 0.91m/s [ 1.00 - 1.20 ] RA Volume 38.96 ml MV Decel Time 136msec [ 104 - 258 ] PV Peak Ariel 1.11 m/s [ 0.40 - 0.80 ] TR Peak Ariel 2.99 m/s [ 1.00 - 2.80 ] TR Peak PG 36 mmHg RVSP 41.00 mmHg [ 10.00 - 36.00 ] RV S` 15.01 mmHg Lateral E` 0.09 m/s [ 0.10 - 0.15 ] Septal E` 0.06 m/s [ 0.08 - 0.15 ] E` 0.08 m/s E/E` 12 Tapse 2.48 cm [ 1.71 - 5.00 ] 2D/MM Value Range Doppler ValueRange - FINDINGS: Interpretation Site: Exam was interpreted at [facility]. Left Ventricle: Normal left ventricular size. Normal left ventricular wall thickness.Paradoxical septal motion consistent with IVCD or bundle branch block. Diastolic dysfunctionis present. Ejection fraction is measured at 47 %. Ejection Fraction is visuallyestimated to be 35 %. Global Longitudinal Strain is -12 %. GLS is abnormal. Right Ventricle: Normal right ventricular systolic function. Mild enlargement of rightventricle. Left Atrium: The left atrium is normal in size. Right Atrium: The right atrium is normal in size. Atrial Septum: Normal atrial septum. Mitral Valve: Normal appearance of the mitral valve. Mild mitral valve regurgitation.There is no hemodynamically significant mitral stenosis by Doppler. Aortic Valve: No evidence of hemodynamically significant aortic stenosis by Doppler.Aortic cusps appear mildly sclerotic. Probable trileaflet aortic valve, although notall leaflets are visualized. No aortic regurgitation. Tricuspid Valve: Normal appearance of the tricuspid valve. Estimated peak RVSP is 41 mmHg.Mild tricuspid regurgitation. Pulmonic Valve: Normal appearance of the pulmonic valve. No evidence of pulmonicregurgitation. Pericardium: Normal pericardium with no significant pericardial effusion. Aorta: Sinus of Valsalva is normal. IVC: Normal size and normal respiratory collapse consistent with normal rightatrial pressure (<5 mmHg). Pulmonary Artery: Normal pulmonary artery size. CONCLUSIONS: Normal left ventricular size. Normal left ventricular wall thickness.Paradoxical septal motion consistent with IVCD or bundle branch block. Diastolic dysfunctionis present. Ejection fraction is measured at 47 %. Ejection Fraction is visuallyestimated to be 35 %. Global Longitudinal Strain is -12 %. GLS is abnormal. Mild mitral valve regurgitation. Estimated peak RVSP is 41 mmHg. Mild tricuspid regurgitation. Electronically Signed By: Dr. Jorge Alberto Nayak [facility] 05/11/2025 8:52:40 PM CDT Heaven Rubin NP CV ECHO PROCEDURES Final Result * (ABNORMAL) Pro B-type natriuretic peptide (05/11/2025) SCRIBED NT PROBNP 689(A) 19.1 - 100 EXTERNAL LAB Blood 05/11/2025 Heaven Rubin NP LAB BLOOD ORDERABLES Layla torres Result EXTERNAL LAB from Last 3 [place] [address] MEDICARE FOR LIFE MEDICARE FOR LIFE MEDICARE [facility] Address: [address] [address] [place] [address] FOR LIFE Care Teams Diamond Driller Helper Relationship Specialty Start Date End Date Pawan Echevarria MD [facility] [address] [place] [address] [place] [id number] PCP - General Family Medicine 06/06/23
== END 2025-07-21 10:11 | disposition home or self-care (01) ==
PROVIDERS: PCP Family Medicine; Visit Provider Internal Medicine Hematology & Oncology
DX: C50.912 Malignant neoplasm of unspecified site of left female breast (principal); Z17.0 Estrogen receptor positive status [ER+]; K80.20 Calculus of gallbladder without cholecystitis without obstruction; S22.050A Wedge compression fracture of T5-T6 vertebra, initial encounter for closed fracture; S22.060A Wedge compression fracture of T7-T8 vertebra, initial encounter for closed fracture; X58.XXXA Exposure to other specified factors, initial encounter
CPT/HCPCS: 71260; 74177; 78306; A9503; Q9967

== ENCOUNTER 2025-08-17 14:39 | Outpatient (CLI) | payer MEDICARE, OTHER, SELFPAY ==
--- OUTSIDE RECORDS SUMMARY | 2025-08-17 15:37 | XMS_ITS | Encounter Summary ---
Author Organization [facility] Address [address] [place] [address] Care Team Providers Care Manager Database Name Role Phone Pawan Echevarria MD Primary Care Provider [phone]- [phone] Encounter Details Date Type Department Care Team (Late st Contact Info) Description 05/20/2025 MyChart Message Enc [facility] Multispecialty Care - [facility] [address] [facility] [place] [phone] Abdon Flynn MD [address] [place], [place] [address] [place] [address] Oxygen Form Needed for Air Travel Social History Tobacco Use Types Packs/Day [...] materials from doctor or pharmacy Never 10/24/2024 [facility] Utilities Answer Date Recorded In the past 12 months has e [employer], gas, oil, or water company threatened to [...] or ex-partner? No 10/04/2024 Social Connection and Isolation Panel Answer Date Recorded In a typical week, how many times do you talk on the phone with family, friends, or neighbors? More than three times a week 10/04/2024 Frequency of Social Gatherin gs with Friends and Family Not on file 10/04/2024 Attends Buddhism Services Not on file 10/04 Active Member [...] Recorded Patient Health Questionnaire-2 Score 2 12/05/2022 [facility] [place] of Occupat ional Health - Occupational Stress [...] in the past 12 m [facility], were you homeless or living in a jail (including now)? 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 2:27 PM ADMINISTRATIVE ASSISTANT RECEPTIONIST Legal Sex Female 4:16 PM CDT Gender [...] Assessment Author Status No 10/04/2024 5:00 PM ADMINISTRATIVE ASSISTANT RECEPTIONIST Nighat Prado RN Active documented as of this encounter Mental Status * Because of a physical, mental, or emotional condition, do you have serious difficulty concentrating, remembering, or making decisions? Answer Entry Date Author Status No 10/04/2024 5:00 PM ADMINISTRATIVE ASSISTANT RECEPTIONIST Nighat Prado RN Active documented in this encounter Plan of Treatment Upcoming Encounters Date Type Department Care Team (Late st Contact Info) Description 10/08/2025 3:00 PM ADMINISTRATIVE ASSISTANT RECEPTIONIST Office Visit [facility] Mult[facility]pecialty Care - [facility] [address] [facility] [place] [address] Abdon Flynn MD [address] [place] [address] [address] [place] [address] documented as of this encounter Visit Diagnoses Not on filedocumented in this encounter Additional Health Concerns Infection Onset Date Last Indicated Resolved Time Tuberculosis Rule-Out 04/27/2025 04/27/20252024 1:28 PM CDT Assessment Noted Time PHQ-9 Depression Total Score: 0 12/13/19 22 11:54 AM CDT documented as of this encounter Care Teams Manager Database Relationship Specialty Start Date End Date Pawan Echevarria MD [facility] [address] [place] [address] PCP - General FAMILY PRACTICE 04/17/23 documented as of this encounter
--- OUTSIDE RECORDS SUMMARY | 2025-08-17 15:37 | XMS_ITS | Clinical Summary ---
Author Organization [facility] Virtual Care Address [address] [place] [phone] Phone Care Team Providers Care Daycare Provider Name Role Phone Pawan Echevarria MD Primary Care Provider [phone] [phone] Allergies Active Allergy Reactions Criticality Noted Date [...] (40 mg total) by mouth 5 Active furosemide (LASIX) 20 mg tabletIndications: Nonischemic cardiomyopathy (HCC) Take 1 tablet (20 mg total) by mouth daily as needed (edema and/or weight gain) 30 tablet 1 5 Active azithromycin (ZITHROMAX) 500 mg tablet Take 1 tablet (500 mg total) by mouth 3 (three) times a week Active busPIRone (BUSPAR) 10 mg tabletIndications: Generalized Anxiety Disorder Take 1 tablet (10 mg total) by mouth daily Active sacubitriL-valsart an (ENTRESTO) 49-51 mg tabletIndications: chronic heart failure Take 1 tablet by mouth 2 (two) times a day 180 tablet 3 5 Active spironolactone (ALDACTONE) 25 mg tabletIndications: Nonischemic cardiomyopathy (HCC) Take 0.5 tablets (12.5 mg total) by mouth daily 5 Active metoprolol XL (TOPROL-XL) 25 mg extended release tabletIndications: Nonischemic cardiomyopathy (HCC) Take 1 tablet (25 mg total) by mouth daily 90 tablet 1 5 026 Active Active Problems Problem Noted [...] CMP checked today. - Spoke with her mercerizing range feeder, Dr. Abdon Flynn ([facility]), to discuss the possibility of sparing [...] 81 y.o. 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-4-tjccrihhect deficiency carrier 8 COPD (chronic obstructive pulmonary disease) Encounters Date Type Department Care Team Description 07/07/2025 Telephone [facility] Cardiology [address] [place] [address] [place] [phone] Damien Plaza MD Med Refill 05/29/2025 Results Follow-Up [facility] Cardiology [address] [place] [address] [place] [phone] Heaven Garcia NP Basic metabolic panel 05/19/2025 1:30 PM CDT Office Visit [facility] Cardiology [address] [place] [address] [place] [phone] Heaven Garcia NP Nonischemic cardiomyopathy (HCC); Chronic hypoxic respiratory failure, on home oxygen therapy (HCC) from Last 3 Months Immunizations Immunization Administration [...] January 2024 Osteoporosis January 2024 Chronic bronchitis ([facility]) Several years ago Family History Medical History [...] on file Legal Sex Female 3:43 AM PATCH SANDER Gender Identity Female 02/01/2022 8:55 AM CDT Sexual Orientation Straight 02/01/2022 8: 55 AM CDT Last Filed Vital Signs Vital Sign Reading Time Taken Comments Blood Pressure 122/54 05/19/2025 1:37 PM CDT Pulse 72 05/19/2025 1:37 PM CDT Temperature 36.9 C (98.5 F) 10/04/2022 11:40 AM PATCH SANDER Respiratory Rate 18 05/19/2025 1:37 PM CDT [...] 05/27/2025 2:17 PM CDT Nonischemic cardiomyopathy (HCC) from Last 3 Months Results * (ABNORMAL) Basic metabolic panel (05/27/2025 2:17 PM CDT) [facility] Glucose 128 65 - 139 mg/dL [facility] [...] 05/28/2025 4:16 AM CDT FASTING:NO FASTING: NO us Heaven Garcia NP LAB BLOOD ORDERABLES Layla melissa Result [facility] [id number] [address] [phone] from Last [address] [place] [address] MEDICARE [employer] [place] [address] MEDICARE FOR LIFE MEDICARE FOR LIFE Care Teams Daycare Provider Relationship Specialty Start Date End Date Pawan Echevarria MD [facility] [facility] [place] [place] [address] PCP - General Family Medicine 06/06/23
--- OUTSIDE RECORDS SUMMARY | 2025-08-17 15:37 | XMS_ITS | Clinical Summary ---
Author Organization [facility] Negra Craig Address [address] [place] [address] Care Team Providers Care Metallographic Technician Name Role Phone Pawan Echevarria MD Primary Care Provider [phone]- [phone] Allergies Active Allergy Reactions Criticality Noted Date Comments Ipratropium Unknown 07/04/2018 Medications albuterol sulfate HFA 90 mcg/actuation aerosol inhaler Take 2 Puffs by inhalation every 6 hours as needed. 2 Active albuterol (PROVENTIL,JEFFERY MELIDA) 2.5 mg /3 mL (0.083 %) Solution for Nebulization Take 2.5 mg by inhalation every 4 hours as needed. 3 Active ALPRAZolam (XANAX) 0.5 mg tablet Take 0.5 mg by mouth 3 times daily as needed for Anxiety. 4 Active Calcium-Cholecal ciferol, D3, 500 mg-3.125 mcg [...] 1 Puff by inhalation daily. 1 Active HYDROcodone-acet aminophen (NORCO) 5-325 mg tablet Take 1 Tablet by mouth every 6 hours as needed for Pain. 5 Active famotidine (PEPCID) 40 mg tablet Take 40 mg by mouth daily at bedtime. 5 Active mirtazapine (REMERON) 7.5 mg tablet Take 7.5 mg by mouth daily at bedtime. 5 Active ondansetron (ZOFRAN) 4 mg Tablet Take [...] for Other (See Comment) (water retention/swelli ng). 5 Active flecainide (TAMBOCOR) 100 mg tablet Take 100 mg by mouth 2 times daily. 5 026 Active formoterol (PERFOROMIST) 20 mcg/2 mL Solution for Nebulization Take 20 mcg by inhalation one time only. Active revefenacin (Yupelri) 175 mcg/3 mL Solution for Nebulization Take by inhalation. Active palbociclib (Ibrance) 125 mg tablet TAKE 1 TABLET DAILY FOR 21 DAYS ON AND 7 DAYS OFF EVERY 28 DAY CYCLE. 21 Tablet 4 5 Active azithromycin (ZITHROMAX) 500 mg tablet Take 500 mg by mouth. Every Sunday, Sunday, Sunday 5 Active Tezspire 210 mg/1.91 mL (110 mg/mL) subcutaneous pen injector Inject 210 mg by subcutaneous injection every 28 days. Active Active Problems No known active problems Encounters Date Type Department Care Team Description 07/29/2025 11:00 AM ORNAMENT STAPLER Office Visit [facility] Oncology and Hematology [facility] [address] [place] [address] Lovely Tomlin MD Malignant neoplasm of left breast in female, estrogen receptor positive, unspecified site of breast (CMS/HCC) (Primary Dx); Osteopenia of multiple sites; Metastasis to bone (CMS/HCC) 07/23/2025 Orders Only [facility] Oncology and Hematology [facility] [address] [place] [address] Warren Vaughn MD 07/22/2025 Orders Only [facility] Oncology and Hematology [facility] [address] [place] [address] Warren Vaughn MD 07/15/2025 External Device Data STL ABSTRACTION Provider, Abstract 07/14/2025 External Device Data STL ABSTRACTION Provider, Abstract 07/07/2025 External Device Data STL ABSTRACTION Provider, Abstract 06/23/2025 2:00 PM CDT Office Visit [facility] Oncology and Hematology [facility] [address] [place] [address] Warren Vaughn MD Malignant neoplasm of left breast in female, estrogen receptor positive, unspecified site of breast (CMS/HCC) (Primary Dx) 06/08/2025 Refill [facility] Oncology and Hematology [facility] [address] [place] [address] Warren Vaughn MD 05/19/2025 External Device Data [...] Sign Reading Time Taken Comments Blood Pressure 116/64 07/29/2025 10:54 AM ORNAMENT STAPLER Pulse 72 07/29/2025 10:54 AM ORNAMENT STAPLER Temperature 36.7 C (98 F) 07/29/2025 10:54 AM ORNAMENT STAPLER Respiratory Rate 16 07/29/2025 10:5 4 AM ORNAMENT STAPLER Oxygen Saturation 91% 07/29/2025 10: 54 AM ORNAMENT STAPLER 4 liters O2 with activity Inhaled Oxygen Concentration - - Weight 53.9 kg (118 lb 12.8 oz) 07/29/2025 10:54 AM ORNAMENT STAPLER Height 162.6 cm (5' 4) 11/29/2023 3:03 PM CDT Body Mass Index 20.39 11/29/2023 3:03 PM CDT Plan of Treatment Upcoming Encounters Date Type Department Care Team (Late st Contact Info) Description 09/02/2025 2:30 PM ORNAMENT STAPLER Office Visit [facility] Oncology and Hematology [facility] [address] [facility] [address] [place] [address] Warren Vaughn MD [address] [facility] [address] [place] [address] Health Maintenance Due Date Last Done Comments DTAP/TDAP/TD VACCINES (1 - Tdap) 02/14/1960 PNEUMOCOCCAL VACCINE 50+ YEA RS (1 of 2 - PCV) 02/14/1960 Traditional Medicare (ACO) A nnual Wellness Visit 02/14/1960 ZOSTER VACCINE (1 of 2) 02/14/1960 RSV VACCINE (60+ or ) (1 - 1-dose 75+ series) 02/14/2016 COVID-19 Vaccine (3 - Pfizer risk series) 12/17/2020 11/19/2020, 10/26/2020 INFLUENZA VACCINE (#1) 2025 OSTEOPOROSIS SCREENING 06/02/2029 06/02/2024 Procedures Procedure Name Priority Date/Time Associated Diagnosis Comments NM BONE SCAN WHOLE BODY Routine 07/21/20 11:[address] CHEST ABDOMEN PELVIS W CONT Routine 07/21/2025 11:25 AM ORNAMENT STAPLER CBC WITH AUTODIFFERENTIAL Routine 2024 4:09 PM ORNAMENT STAPLER CHG CA 15 3 Routine 07/20/2025 3:39 PM ORNAMENT STAPLER COMPREHENSIVE METABOLIC PANEL Routine 07/20/2025 2:56 PM ORNAMENT STAPLER from Last 3 Months Results * NM BONE SCAN WHOLE BODY (07/21/2025 11:28 AM ORNAMENT STAPLER) Anatomical Region Laterality Modality Nuclear Medicine us Warren Vaughn MD NM ORDERABLES Final Result * CT CHEST ABDOMEN PELVIS W CONT (07/21/2025 11:25 AM ORNAMENT STAPLER) Anatomical Region Laterality Modality Chest Computed Tomogra phy us Warren Vaughn MD CT ORDERABLES Final Result * CBC WITH AUTODIFFERENTIAL (07/20/2025 4:09 PM ORNAMENT STAPLER) Blood us Warren Vaughn MD HEMATOLOGY ORDERABLES Final Res ult * CHG CA 15 3 (07/20/2025 3:39 PM ORNAMENT STAPLER) us Warren Vaughn MD CHG - LABORATORY Final Result * COMPREHENSIVE METABOLIC PANEL (07/20/2025 2:56 PM ORNAMENT STAPLER) Blood us Warren Vaughn MD CHEMISTRY ORDERABLES Final Resu lt from Last 3 Months Insurance MEDICARE PART A AND B [employer] Express Care Teams Metallographic Technician Relationship Specialty Start Date End Date Pawan Echevarria MD [address] [place] [phone] PCP - General Family Practice 11/29/23
--- OUTSIDE RECORDS SUMMARY | 2025-08-17 15:37 | XMS_ITS | Encounter Summary ---
Author Organization [facility] Address [facility]ly [facility] [place] [address] Care Team Providers Care Microsoft Application Developer Name Role Phone Pawan Echevarria MD Primary Care Provider [phone]- [phone] Encounter Details Date Type Department Care Team (Late st Contact Info) Description 10/03/2024 MyChart Message Enc [facility] Medical Group Multispecialty Care - [facility] [address] [place] [phone] Abdon Flynn MD [address] [place], [place] [address] [place] [address] Fever/Shortness of Breath Social History Tobacco Use Types Packs/Day Years Used Date Smoking Tobacco: Former Cigarettes 0.3 6 0 02/25/1974 - 02/26/1980 Smokeless Tobacco: Never Alcohol Use Standard Drinks/Week Comments Yes 0 (1 standard drink = 0.6 oz pur e alcohol) minimal rare use [facility] Utilities Answer Date Recorded In the [...] Recorded Patient Health Questionnaire-2 Score 2 12/05/2022 [facility] of Occupat ional Health - Occupational Stress [...] were you homeless or living in a mcfp (including now)? 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 2:27 PM WELL REACTIVATOR OPERATOR Legal Sex Female 4:16 PM CDT [...] Status No Risk Indicated 10/03/2024 2:19 PM WELL REACTIVATOR OPERATOR Jethro Marin RN Active * [place] Suicide Severity Rating Scale (Screener/Recent Self-Report) Question Answer Date of Assessment Author Status 1. Wish to be (Past 1 Month) No 10/03/2024 2:19 PM WELL REACTIVATOR OPERATOR Vicky Marin RN Act anamika 2. Non-Specific Active Suicidal [...] or making decisions? No 10/04/2024 5:00 PM WELL REACTIVATOR OPERATOR Nighat Prado R N Active documented in this encounter Plan of Treatment Upcoming Encounters Date Type Department Care Team (Late st Contact Info) Description 10/08/2025 3:00 PM WELL REACTIVATOR OPERATOR Office Visit [facility] Medical Group Multispecialty Care - [facility] [address] [place] [address] Abdon Flynn MD [address] [facility] [address] [place] [address] documented as of this encounter Visit Diagnoses Not on filedocumented in this encounter Additional Health Concerns Infection Onset Date Last Indicated Resolved Time COVID-19 Rule Out 10/03/2024 10/03/2024 10/03/2024 5:30 PM WELL REACTIVATOR OPERATOR COVID-19 Rule Out 10/04/2024 10/04/2024 10/04/2024 3:19 AM WELL REACTIVATOR OPERATOR Influenza - Seasonal 10/04/2024 10/04/2024 025 12:32 AM WELL REACTIVATOR OPERATOR Tuberculosis Rule-Out 04/27/2025 04/27/20252024 1:28 PM CDT Assessment Noted Time PHQ-9 Depression Total Score: 0 12/13/19 22 11:54 AM CDT documented as of this encounter Care Teams Microsoft Application Developer Relationship Specialty Start Date End Date Pawan Echevarria MD [address] [facility] [address] [place] [address] PCP - General FAMILY PRACTICE 04/17/23 documented as of this encounter
--- OUTSIDE RECORDS SUMMARY | 2025-08-17 15:37 | XMS_ITS | Clinical Summary ---
Author Organization [facility] Address [place] [address] Care Team Providers Care Object Oriented Developer Name Role Phone Pawan Echevarria MD Primary Care Provider [phone]- [phone] Allergies Active Allergy Reactions Criticality Noted Date [...] hr tabletIndications: Heart Failure Indications: Cardiac Failure 0 Active sertraline 50 MG tabletIndications: Depression Take 1 tablet (50 mg total) by mouth daily. Indications: Depression 1 Active Respiratory Therapy Supplies (NEBULIZER/TUBING/ MOUTHPIECE) KitIndications:Bro nchiectasis without complication (CMS/HCC [facility]) 1 each by Does not apply route every 4 (four) hours as needed. 1 kit 3 Active empagliflozin (JARDIANCE) 10 MG tabletIndications: Congestive Heart Failure Take 1 tablet (10 mg total) by mouth daily. Indications: Congestive Heart Failure 3 Active ENTRESTO 24-26 MG tabletIndications: Congestive Heart Failure Take 1 tablet by mouth 2 (two) times daily. Indications: Congestive Heart Failure 3 Active umeclidinium-vilan terol (ANORO ELLIPTA) 62.5-25 MCG/ACT inhalerIndications :COPD exacerbation, uncomplicated USE 1 INHALATION DAILY 360 each 3 4 Active albuterol sulfate HFA (PROAIR HFA) 108 (90 Base) MCG/ACT inhalerIndications :Shortness of breath Inhale 2 puffs into the lungs every 6 (six) hours as needed for Wheezing or Shortness of breath. 18 g 3 4 Active ALPRAZolam (XANAX) 0.5 MG tabletIndications: Anxiety Take 0.5 tablets (0.25 mg total) by mouth nightly as needed for Sleep or Anxiety. Indications: Feeling Anxious Active OXYGENIndications: Shortness of breath 2 L/min by Nasal route as needed. Indications: Shortness of breath 5 Active flecainide (TAMBOCOR) 100 MG tablet Take 1 tablet (100 mg total) by mouth 2 (two) times daily. 5 026 Active furosemide (LASIX) 20 MG tablet 5 Active spironolactone (ALDACTONE) 25 MG tablet Active palbociclib (IBRANCE) 125 MG capsule 5 Active anastrozole (ARIMIDEX) 1 MG tablet 5 Active mirtazapine (REMERON) 7.5 MG Tab tablet Take 1 tablet (7.5 mg total) by mouth. 5 Active famotidine (PEPCID) 40 MG tablet Take 1 tablet (40 mg total) by mouth. 5 Active ondansetron (ZOFRAN-ODT) 4 MG disintegrating tablet 5 Active albuterol (PROVENTIL) (2.5 MG/3ML) 0.083% nebulizer solutionIndication s:Bronchiectasis without complication (CMS/HCC HHS/HCC) USE 1 VIAL VIA NEBULIZER EVERY 4 HOURS NEEDED FOR WHEEZING OR SHORTNESS OF BREATH 75 mL 2 5 Active sodium chloride 3 % NEBULIZER solutionIndication s:Mixed simple and mucopurulent chronic bronchitis ([facility]/HCC HHS/[facility]) USE 1 VIAL IN NEBULIZER NEEDED 120 mL 5 5 Active tezepelumab-ekko (TEZSPIRE) 210 MG/1.91ML Solution Auto-injector injectionIndicatio ns:Unspecified asthma, uncomplicated ([facility]/HCC) Inject 1.91 mLs (210 mg total) into the skin every 28 days. 1.91 mL 11 5 Active OXYGENIndications: Moderate persistent asthma with exacerbation ([facility]/HCC),Bronchie ctasis without complication (CMS/HCC [facility]) 2 L/min by Nasal route continuous. 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 COPD (chronic obstructive pulmonary disease) History of Pseudomonas pneumonia 01/27/2018 Pleural thickening 01/27/2018 Bacterial infection 12/13/2017 Chronic cough 12/10/2017 Asthma exacerbation 12/10/2017 Wheeze 12/10/2017 Resolved Problems Problem Noted Date Diagnosed Date Resolved Date Encounter for preventive health examination 11/07/2017 05/28/2020 Encounters Date Type Department Care Team Description 07/14/2025 Scan [facility] HE[facility] INFO SRVCS Scanned, Doc Med Group 07/14/2025 MyChart Message Enc [facility] Medical [facility] Multispecialty Care - [address], [address] [place] [address] Abdon Flynn MD Antibiotic 06/24/2025 Scan [facility] HEALTH INFO SRVCS Scanned, Doc Med Group 06/01/2025 Scan [facility] HEALTH INFO SRVCS Scanned, Doc Med Group 05/28/2025 Scan [facility] HEALTH INFO SRVCS Scanned, Doc Med Group 05/28/2025 [facility] [address] [place] [address] Abdon Flynn MD Antibiotic and Tespire 05/27/2025 [facility] [address] [place] [address] Abdon Flynn MD 05/25/2025 Scan HEALTH INFO SRVCS Scanned, Doc Med Group 05/20/2025 [facility] [address] [facility] [place] [phone] Abdon Flynn MD Oxygen Form Needed for Air Travel from Last 3 Months Immunizations Immunization Administration [...] materials from doctor or pharmacy Never 10/24/2024 C Utilities Answer Date Recorded In the past 12 months has th e electric, gas, oil, or water [facility] threatened to shut off services in your [...] and Family Not on file 10/04/2024 Attends Christian Services Not on file 10/04 Active Member [...] Recorded Patient Health Questionnaire-2 Score 2 12/05/2022 [facility] [place] of Occupat ional Health - Occupational Stress [...] any time in the past 12 m [facility], were you homeless or living in a nursing home (including now)? 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 2:27 PM HAZARDOUS MATERIAL SPECIALIST Legal Sex Female 4:16 PM CDT Gender Identity Not on file Sexual Orientation Not on file Last Filed Vital Signs Vital Sign Reading Time Taken Comments Blood Pressure 134/59 04/30/2025 12:57 PM CDT Pulse 85 04/30/2025 12:57 PM CDT Temperature 36.6 C (97.9 F) 10/14/2024 1:35 PM HAZARDOUS MATERIAL SPECIALIST Respiratory Rate 16 04/30/2025 12:57 PM CDT [...] st Contact Info) Description 10/08/2025 3:00 PM HAZARDOUS MATERIAL SPECIALIST Office Visit [facility] Group Multispecialty Care - [address] [place] [phone] Abdon Flynn MD [address] [facility] [address] [place] [address] Health Maintenance Due Date Last Done Comments DTaP, Tdap and Td Vaccines ( 1 - Tdap) 02/14/1960 Pneumococcal Vaccine: 50+ Years (1 of 2 - PCV) 02/14/1960 Zoster Vaccines (1 of 2) 1991 Annual Medicare Wellness Visit 2006 Dexa Scan (General) 2006 RSV Immunization or 60+ Years (1 - 1-dose 75+ series) 02/14/2016 COVID-19 Vaccine (3 - Pfizer risk series) 12/17/2020 11/19/2020, 10/26/2020 PHQ-2 (Physician [place]) 09/17/2024 10/25/2023 Influenza Adult (#1) 2025 Hepatitis A Vaccines Aged Out No long er eligible based on patient's age to complete this topic Meningococcal B Vaccine Aged Out No l onger eligible based on patient's age to complete this topic Meningococcal Vaccine Aged Out No emeli jennifer eligible based on patient's age to complete this topic RSV Immunizations Under 20 Months Aged Out No longer eligible b ased on patient's age to complete this topic Insurance MEDICARE Advance Directives * Full Code (Latest Code Status on File) Date Activated Date Inactivated Comments 10/09/2024 3:14 PM * Full Code Date Activated Date Inactivated Comments 10/04/2024 12:11 AM 10/08/2024 6:04 PM Care Teams Object Oriented Developer Relationship Specialty Start Date End Date Pawan Echevarria MD [address] [facility] [address] [address] PCP - General FAMILY PRACTICE 04/17/23
--- OUTSIDE RECORDS SUMMARY | 2025-08-17 15:37 | XMS_ITS | Encounter Summary ---
Author Organization [facility] Address [address] [place] [address] Phone Care Team Providers Care Strip Catcher Name Role Phone Geeta Crisostomo MD Primary Care Provider [phone] Gavin Gross MD Primary Care Provider [phone] Pawan Echevarria MD Primary Care Provider [phone] Encounter Details Date Type Department Care Team [...] on file Legal Sex Female 3:43 AM CHILD CARE SITTER Gender Identity Female 02/01/2022 8:55 AM CDT [...] filedocumented in this encounter Care Teams Strip Catcher Relationship Specialty Start Date End Date Geeta Crisostomo MD [address] [place] [address] PCP - General Family Medicine 03/08/18 03/28/22 Gavin Gross MD [address] [place] [address] PCP - General Family Medicine 03/29/22 06/05/23 Pawan Echevarria MD [address] [place] [address] [place] [address] PCP - General Family Medicine 06/06/23 documented as of this encounter
--- OUTSIDE RECORDS SUMMARY | 2025-08-17 15:37 | XMS_ITS | Encounter Summary ---
Author Organization [facility] - [facility] Address [facility] [place] [address] Care Team Providers Care Awning Hanger Name Role Phone Edilberto Crisostomo MD Primary Care Provider [phone] Gavin Gross MD Primary Care Provider [phone] Pawan Echevarria MD Primary Care Provider [phone] Encounter Details Date Type Department Care Team (Late st Contact Info) Description 03/22/2021 MyChart Message Enc [facility] Medical Group Multispecialty Care - [address], [address] [place] [address] Abdon Flynn MD [address] [place] [address] [address] [place] [address] Referral Request Social History Tobacco Use Types [...] Frequency of Binge Drinking Daily or almost kevni y 11/28/2018 PHQ-2 Answer Date Recorded PHQ-2 Score - If the patient scores above 3, please move on to questions 3-9 0 01/11/2021 Comments No Sex and Gender Information Value Date Recorded Sex Assigned at Female 10/03/2024 2:27 PM IRON ERECTOR Legal Sex Female 4:16 PM CDT Gender Identity Not on file Sexual Orientation Not on file documented as of this encounter Plan of Treatment Upcoming Encounters Date Type Department Care Team (Late st Contact Info) Description 10/08/2025 3:00 PM IRON ERECTOR Office Visit [facility] Medical Group Multispecialty Care - [facility] [address] [place] [address] Abdon Flynn MD [address] [facility] [address] [place] [address] documented as of this encounter Visit Diagnoses Not on filedocumented in this encounter Additional Health Concerns Infection Onset Date Last Indicated Resolved Time COVID-19 Rule Out 10/03/2024 10/03/2024 10/03/2024 5:30 PM IRON ERECTOR COVID-19 Rule Out 10/04/2024 10/04/2024 10/04/2024 3:19 AM IRON ERECTOR Influenza - Seasonal 10/04/2024 10/04/2024 025 12:32 AM IRON ERECTOR Tuberculosis Rule-Out 04/27/2025 04/27/20252024 1:28 PM CDT documented as of this encounter Care Teams Awning Hanger Relationship Specialty Start Date End Date Edilberto Crisostomo MD [address] [place] [address] PCP - General FAMILY PRACTICE 12/10/17 07/12/22 Gavin Gross MD [address] [place] [address] PCP - General FAMILY PRACTICE 07/13/22 04/16/23 Pawan Echevarria MD [facility] [address] [address] PCP - General FAMILY PRACTICE 04/17/23 documented as of this encounter
--- OUTSIDE RECORDS SUMMARY | 2025-08-17 15:37 | XMS_ITS | Encounter Summary ---
Author Organization [facility] Address [address] [place] [address] Phone Care Team Providers Care Counterintelligence Specialist Name Role Phone Geeta Crisostomo MD Primary Care Provider [phone] Gavin Gross MD Primary Care Provider [phone] Pawan Echevarria MD Primary Care Provider [phone] Encounter Details Date Type Department Care Team [...] on file Legal Sex Female 3:43 AM HUMAN RESOURCES BENEFITS MANAGER Gender Identity Female 02/01/2022 8:55 AM [...] on filedocumented in this encounter Care Teams Counterintelligence Specialist Relationship Specialty Start Date End Date Geeta Crisostomo MD [address] [place] [address] PCP - General Family Medicine 03/08/18 03/28/22 Gavin Gross MD [address] [place] [address] PCP - General Family Medicine 03/29/22 06/05/23 Pawan Echevarria MD [address] [place] [address] [place] [address] PCP - General Family Medicine 06/06/23 documented as of this encounter
--- OUTSIDE RECORDS SUMMARY | 2025-08-17 15:37 | XMS_ITS | Encounter Summary ---
Author Organization [facility] Address [facility] [place] [address] Care Team Providers Care Certification Officer Name Role Phone Edilberto Crisostomo MD Primary Care Provider [phone] Gavin Gross MD Primary Care Provider Pawan Echevarria MD Primary Care Provider [phone] Encounter Details Date Type Department Care Team (Late st Contact Info) Description 12/03/2020 [employer] Message Enc [facility] Medical Group Multispecialty Care - [address], [address] [place] [address] Vik, [facility] Provider Provider Social [...] Sex Assigned at Female 10/03/2024 2:27 PM SERVICE CENTER SUPERVISOR Legal Sex Female 4:16 PM CDT Gender Identity Not on file Sexual Orientation Not on file documented as of this encounter Plan of Treatment Upcoming Encounters Date Type Department Care Team (Late st Contact Info) Description 10/08/2025 3:00 PM SERVICE CENTER SUPERVISOR Office Visit [facility] Medical Group Multispecialty Care - [facility] [address] [facility] [place] [address] Abdon Flynn MD [facility]rd [facility] [address] [place] [address] documented as of this encounter Visit Diagnoses Not on filedocumented in this encounter Additional Health Concerns Infection Onset Date Last Indicated Resolved Time COVID-19 Rule Out 10/03/2024 10/03/2024 10/03/2024 5:30 PM SERVICE CENTER SUPERVISOR COVID-19 Rule Out 10/04/2024 10/04/2024 10/04/2024 3:19 AM SERVICE CENTER SUPERVISOR Influenza - Seasonal 10/04/2024 10/04/2024 025 12:32 AM SERVICE CENTER SUPERVISOR Tuberculosis Rule-Out 04/27/2025 04/27/20252024 1:28 PM CDT documented as of this encounter Care Teams Certification Officer Relationship Specialty Start Date End Date Edilberto Crisostomo MD [address] [place] [address] PCP - General FAMILY PRACTICE 12/10/17 07/12/22 Gavin Gross MD [address] [facility] [address] [place] [address] PCP - General FAMILY PRACTICE 07/13/22 04/16/23 Pawan Echevarria MD [address] [place] [address] [address] [place], [place] [id number] PCP - General FAMILY PRACTICE 04/17/23 documented as of this encounter
--- OUTSIDE RECORDS SUMMARY | 2025-08-17 15:37 | XMS_ITS | Encounter Summary ---
Author Organization [facility] - [facility] Address [facility] [place] [address] Care Team Providers Care Appeals Specialist Name Role Phone Pawan Echevarria MD Primary Care Provider [phone] Encounter Details Date Type Department Care Team (Late st Contact Info) Description 12/31/2024 MyChart Message Enc [facility] Medical Group Multispecialty Care - [facility] [address] [facility] [place] [address] Abdon Flynn MD [address] [place], [place] [address] [address] [place] [address] POC from [employer] - approval required Social [...] materials from doctor or pharmacy Never 10/24/2024 [facility] Utilities Answer Date Recorded In the past 12 months has e Mem[employer], gas, oil, or water [employer] threatened to shut off services in your [...] and Family Not on file 10/04/2024 Attends [employer] Not on file 10/04 Active Member [...] Recorded Patient Health Questionnaire-2 Score 2 12/05/2022 [facility] [place] of Occupat ional Health - Occupational Stress [...] any time in the past 12 m [facility], were you homeless or living in a penitentiary (including now)? 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 2:27 PM REPAIR TECHNICIAN Legal Sex Female 4:16 PM CDT [...] Assessment Author Status No 10/04/2024 5:00 PM REPAIR TECHNICIAN Nighat Prado RN Active documented as of this encounter Mental Status * Because of a physical, mental, or emotional condition, do you have serious difficulty concentrating, remembering, or making decisions? Answer Entry Date Author Status No 10/04/2024 5:00 PM REPAIR TECHNICIAN Nighat Prado RN Active documented in this encounter Plan of Treatment Upcoming Encounters Date Type Department Care Team (Late st Contact Info) Description 10/08/2025 3:00 PM REPAIR TECHNICIAN Office Visit [facility] Medical Group Multispecialty Care - [facility] [address] [facility] [place] [address] Abdon Flynn MD [address] [place] [address] [address] [place] [address] documented as of this encounter Visit Diagnoses Not on filedocumented in this encounter Additional Health Concerns Infection Onset Date Last Indicated Resolved Time Tuberculosis Rule-Out 04/27/2025 04/27/20252024 1:28 PM CDT Assessment Noted Time PHQ-9 Depression Total Score: 0 12/13/19 22 11:54 AM CDT documented as of this encounter Care Teams Appeals Specialist Relationship Specialty Start Date End Date Pawan Echevarria MD [address] [facility] [address] [place] [address] PCP - General FAMILY PRACTICE 04/17/23 documented as of this encounter
--- OUTSIDE RECORDS SUMMARY | 2025-08-17 15:37 | XMS_ITS | Encounter Summary ---
Author Organization [facility] Address [address] [place] [address] Care Team Providers Care Green Marketing Analyst Name Role Phone Gavin Gross MD Primary Care Provider [phone] Pawan Echevarria MD Primary Care Provider [phone] Encounter Details Date Type Department Care Team (Late Contact Info) Description 03/14/2023 MyChart Message Enc [facility] Medical Group - [facility] [address] [place], [place] [address] [facility] [place], [facility] Provider Air Quality Message Social History [...] Sex Assigned at Female 10/03/2024 2:27 PM SHOT BLAST EQUIPMENT OPERATOR Legal Sex Female 4:16 PM CDT Gender Identity Not on file Sexual Orientation Not on file documented as of this encounter Plan of Treatment Upcoming Encounters Date Type Department Care Team (Late Contact Info) Description 10/08/2025 3:00 PM SHOT BLAST EQUIPMENT OPERATOR Office Visit [facility] Medical Group Multispecialty Care - [facility] [address] [facility] [place] [address] Abdon Flynn MD [address] [facility] [address] [place] [address] documented as of this encounter Visit Diagnoses Not on filedocumented in this encounter Additional Health Concerns Infection Onset Date Last Indicated Resolved Time COVID-19 Rule Out 10/03/2024 10/03/2024 10/03/2024 5:30 PM SHOT BLAST EQUIPMENT OPERATOR COVID-19 Rule Out 10/04/2024 10/04/2024 10/04/2024 3:19 AM SHOT BLAST EQUIPMENT OPERATOR Influenza - Seasonal 10/04/2024 10/04/2024 025 12:32 AM SHOT BLAST EQUIPMENT OPERATOR Tuberculosis Rule-Out 04/27/2025 04/27/20252024 1:28 PM CDT Assessment Noted Time PHQ-9 Depression Total Score: 0 12/13/19 22 11:54 AM CDT documented as of this encounter Care Teams Green Marketing Analyst Relationship Specialty Start Date End Date Gavin Gross MD [address] [facility] [address] [place] [address] PCP - General FAMILY PRACTICE 07/13/22 04/16/23 Pawan Echevarria MD [facility] [address] [place] [address] PCP - General FAMILY PRACTICE 04/17/23 documented as of this encounter
--- OUTSIDE RECORDS SUMMARY | 2025-08-17 15:37 | XMS_ITS | Encounter Summary ---
Author Organization [facility] Healthcare Address [address] [place] [address] Care Team Providers Care Correspondence Representative Name Role Phone Pawan Echevarria MD Primary Care Provider [phone] Encounter Details Date Type Department Care Team (Late st Contact Info) Description 12/17/2024 Orders Only [facility] Health Information Management [address] [place] [address] Scanning, Provider Social History Tobacco Use Types [...] on file Legal Sex Female 3:43 AM MINING SUPPORT WORKER Gender Identity Female 02/01/2022 8:55 AM [...] on filedocumented in this encounter Care Teams Correspondence Representative Relationship Specialty Start Date End Date Pawan Echevarria MD [facility] [address] [address] PCP - General Family Medicine 06/06/23 documented as of this encounter
--- OUTSIDE RECORDS SUMMARY | 2025-08-17 15:37 | XMS_ITS | Encounter Summary ---
Author Organization [facility] Healthcare Address [address] [place] [address] Care Team Providers Care Clinical Laboratory Manager Name Role Phone Pawan Echevarria MD Primary Care Provider [phone] Encounter Details Date Type Department Care Team (Late st Contact Info) Description 08/24/2024 Orders Only [facility] Health Information Management [address] [place] [address] Scanning, Provider Social History Tobacco Use Types [...] on file Legal Sex Female 3:43 AM PERIPHERAL EDP EQUIPMENT OPERATOR Gender Identity Female 02/01/2022 8:55 AM [...] on filedocumented in this encounter Care Teams Clinical Laboratory Manager Relationship Specialty Start Date End Date Pawan Echevarria MD [facility] [address] [address] PCP - General Family Medicine 06/06/23 documented as of this encounter
--- OUTSIDE RECORDS SUMMARY | 2025-08-17 15:37 | XMS_ITS | Encounter Summary ---
Author Organization [facility] - [facility] Address [facility] [place] [address] Care Team Providers Care Extension Service Agent Name Role Phone Gavin Gross MD Primary Care Provider [phone] Pawan Echevarria MD Primary Care Provider [phone] Encounter Details Date Type Department Care Team (Late st Contact Info) Description 12/08/2022 MyChart Message Enc [facility] Medical Group Multispecialty Care - [address] [place] [address] Abdon Flynn MD [address] [place] [address] [address] [place] [address] Rx for Nebulizer Social History Tobacco Use [...] Sex Assigned at Female 10/03/2024 2:27 PM ROOFER APPLICATOR Legal Sex Female 4:16 PM CDT Gender [...] st Contact Info) Description 10/08/2025 3:00 PM ROOFER APPLICATOR Office Visit [facility] Medical Group Multispecialty Care - [address], [address] [place] [address] Abdon Flynn MD [address] [place] [address] [place] [address] documented as of this encounter Visit Diagnoses Not on filedocumented in this encounter Additional Health Concerns Infection Onset Date Last Indicated Resolved Time COVID-19 Rule Out 10/03/2024 10/03/2024 10/03/2024 5:30 PM ROOFER APPLICATOR COVID-19 Rule Out 10/04/2024 10/04/2024 10/04/2024 3:19 AM ROOFER APPLICATOR Influenza - Seasonal 10/04/2024 10/04/2024 025 12:32 AM ROOFER APPLICATOR Tuberculosis Rule-Out 04/27/2025 04/27/20252024 1:28 PM CDT Assessment Noted Time PHQ-9 Depression Total Score: 0 12/13/19 22 11:54 AM CDT documented as of this encounter Care Teams Extension Service Agent Relationship Specialty Start Date End Date Gavin Gross MD [address] [address] PCP - General FAMILY PRACTICE 07/13/22 04/16/23 Pawan Echevarria MD [facility] [facility] [address] [place] [address] PCP - General FAMILY PRACTICE 04/17/23 documented as of this encounter
--- OUTSIDE RECORDS SUMMARY | 2025-08-17 15:37 | XMS_ITS | Encounter Summary ---
Author Organization [facility] - [facility] Address [facility] [place] [address] Care Team Providers Care Panel Saw Operator Name Role Phone Pawan Echevarria MD Primary Care Provider [phone] Encounter Details Date Type Department Care Team (Late st Contact Info) Description 11/18/2024 MyChart Message Enc [facility] Medical Group Multispecialty Care - [facility] [address] [facility] [place] [address] Abdon Flynn MD [address] [place], [place] [address] [address] [place] [address] Move Up Appointment Social History Tobacco Use [...] and Family Not on file 10/04/2024 Attends [employer] Not on file 10/04 Active Member [...] Recorded Patient Health Questionnaire-2 Score 2 12/05/2022 [facility] of Occupat ional Health - Occupational Stress [...] were you homeless or living in a custodial (including now)? 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 2:27 PM MANUFACTURING OPERATIONS MANAGER Legal Sex Female 4:16 PM CDT [...] Assessment Author Status No 10/04/2024 5:00 PM MANUFACTURING OPERATIONS MANAGER Nighat Prado RN Active documented as of this encounter Mental Status * Because of a physical, mental, or emotional condition, do you have serious difficulty concentrating, remembering, or making decisions? Answer Entry Date Author Status No 10/04/2024 5:00 PM MANUFACTURING OPERATIONS MANAGER Nighat Prado RN Active documented in this encounter Plan of Treatment Upcoming Encounters Date Type Department Care Team (Late st Contact Info) Description 10/08/2025 3:00 PM MANUFACTURING OPERATIONS MANAGER Office Visit [facility] Medical Group Multispecialty Care - [facility] [address] [facility] [address] [place] [address] Abdon Flynn MD [address] [facility] [address] [place] [address] documented as of this encounter Visit Diagnoses Not on filedocumented in this encounter Additional Health Concerns Infection Onset Date Last Indicated Resolved Time Tuberculosis Rule-Out 04/27/2025 04/27/20252024 1:28 PM CDT Assessment Noted Time PHQ-9 Depression Total Score: 0 12/13/19 22 11:54 AM CDT documented as of this encounter Care Teams Panel Saw Operator Relationship Specialty Start Date End Date Pawan Echevarria MD [address] [facility] [address] [place] [address] PCP - General FAMILY PRACTICE 04/17/23 documented as of this encounter
[2025-08-17 16:59] LABS: NT Pro B Type Natriuretic Pept 510 pg/mL (19.9-100)
== END 2025-08-17 14:40 | disposition home or self-care (01) ==
LOC: ANHLAB 14:40
PROVIDERS: PCP Family Medicine; Visit Provider Nurse Practitioner Adult Health
DX: I50.812 Chronic right heart failure (principal)
CPT/HCPCS: 36415; 83880